=== PATIENT | female | born 1970 | race Caucasian/White ===

== ENCOUNTER 2016-05-04 15:40 | Outpatient (RCR) | payer MEDICARE, MEDICAID ==
[2016-04-22 15:20] VITALS: BP 130/83
[2016-04-22] MEDS: ACETAMINOPHEN 325 MG TABLET/CAPLET (TYLENOL) PO PRN (15:40)
[2016-04-22] MEDS: diphenhydrAMINE 50 MG/ML INJ (BENADRYL) IV PRN (15:45)
[2016-04-22 15:54] VITALS: BP 130/83
[2016-04-22 16:43] VITALS: BP 130/83
[2016-04-22 17:12] VITALS: BP 130/83
[2016-04-24] MEDS: ACETAMINOPHEN 325 MG TABLET/CAPLET (TYLENOL) PO PRN (15:55)
[2016-04-24] MEDS: diphenhydrAMINE 50 MG/ML INJ (BENADRYL) IV PRN (15:55)
[2016-04-24] MEDS: IRON SUCROSE 250 MG/NS 100 ML IVPB IV SCH ×2 (16:10)
[2016-04-24 16:45] VITALS: BP 146/92
[2016-04-27 15:10] VITALS: BP 131/79
[2016-04-27] MEDS: ACETAMINOPHEN 325 MG TABLET/CAPLET (TYLENOL) PO PRN (15:25)
[2016-04-27] MEDS: diphenhydrAMINE 50 MG/ML INJ (BENADRYL) IV PRN (15:27)
[2016-04-27] MEDS: IRON SUCROSE 250 MG/NS 100 ML IVPB IV SCH ×2 (15:42)
[2016-04-29 14:37] VITALS: BP 132/83
[2016-04-29] MEDS: diphenhydrAMINE 50 MG/ML INJ (BENADRYL) IV PRN (14:50)
[2016-04-29] MEDS: ACETAMINOPHEN 325 MG TABLET/CAPLET (TYLENOL) PO PRN (14:50)
[2016-04-29] MEDS: IRON SUCROSE 250 MG/NS 100 ML IVPB IV SCH ×2 (15:00)
[2016-05-01] MEDS: ACETAMINOPHEN 325 MG TABLET/CAPLET (TYLENOL) PO PRN (16:10)
[2016-05-01] MEDS: diphenhydrAMINE 50 MG/ML INJ (BENADRYL) IV PRN (16:10)
[2016-05-01] MEDS: IRON SUCROSE 250 MG/NS 100 ML IVPB IV SCH ×2 (16:20)
[2016-05-01 17:07] VITALS: BP 138/89
[~2016-05-04] VITALS: Ht 160 cm; Wt 113.4 kg
[~2016-05-04 15:40] MED LIST: ACETAMINOPHEN 325 MG TABLET/CAPLET (TYLENOL) ONE; ATOR40TA70 PO; IRON SUCROSE INJECTION 125 MG in NS (IVPB) 100 ML IV NR; LEVO200T6 PO; LEVO50TA6 PO; METF1000 PO; NAPR500T PO; diphenhydrAMINE 50 MG/ML INJ (BENADRYL) ONE
[2016-05-04] MEDS: ACETAMINOPHEN 325 MG TABLET/CAPLET (TYLENOL) PO PRN (15:55)
[2016-05-04] MEDS: diphenhydrAMINE 50 MG/ML INJ (BENADRYL) IV PRN (15:59)
[2016-05-04] MEDS: IRON SUCROSE 250 MG/NS 100 ML IVPB IV SCH ×2 (16:05)
[2016-05-04 16:20] VITALS: BP 135/94
[2016-05-04 16:40] VITALS: BP 135/94
== END 2016-07-21 | disposition home or self-care (01) ==
LOC: SDC 15:40
PROVIDERS: ATTEND Family Medicine
DX: D50.9 Iron deficiency anemia, unspecified (principal)
CPT/HCPCS: 96365; 96374; 96375

== ENCOUNTER 2016-10-29 14:54 | Outpatient (CLI) | payer MEDICARE, MEDICAID ==
[~2016-10-29] VITALS: Ht 160 cm; Wt 111.2 kg
[~2016-10-29 14:54] MED LIST changes: -ACETAMINOPHEN 325 MG TABLET/CAPLET (TYLENOL) ONE; -IRON SUCROSE INJECTION 125 MG in NS (IVPB) 100 ML IV NR; -diphenhydrAMINE 50 MG/ML INJ (BENADRYL) ONE
[2016-10-29] MEDS ORDERED: LORA10TA7 PO (15:04)
[2016-10-29] MEDS ORDERED: CANA100T PO (15:04)
[2016-10-29] MEDS ORDERED: ACET-2267 PO (15:04)
[2016-10-29] MEDS ORDERED: LEVO25TA5 PO (15:04)
[2016-10-29 15:07] VITALS: BP 123/82
== END 2016-10-29 15:40 | disposition home or self-care (01) ==
LOC: PREOP 14:54
PROVIDERS: ATTEND Surgery Pediatric Surgery
DX: Z01.818 Encounter for other preprocedural examination (principal); Z11.2 Encounter for screening for other bacterial diseases; K42.9 Umbilical hernia without obstruction or gangrene
CPT/HCPCS: 87081

== ENCOUNTER 2016-11-05 06:56 | Day surgery (SDC) | payer MEDICARE, MEDICAID ==
[~2016-11-05] VITALS: Ht 160 cm; Wt 111.2 kg
[~2016-11-05 06:56] MED LIST changes: +ACET-2267 PO; +CANA100T PO; +LEVO25TA5 PO; +LORA10TA7 PO
[2016-11-05] MEDS: LACTATED RINGERS 1,000 ML IV PRN ×2 (07:05→08:49)
[2016-11-05 07:10] VITALS: BP 139/91
[2016-11-05] MEDS ORDERED: ceFAZolin 1,000 MG (ANCEF) VIAL ONE (07:10)
[2016-11-05] MEDS ORDERED: NS (IVPB) 50 ML ONE (07:10)
[2016-11-05] MEDS ORDERED: CATHETER FLUSH 10 ML SYR IV PRN (07:15)
[2016-11-05] MEDS ORDERED: ceFAZolin 1 GM/NS 50 ML IVPB IV ONE ×2 (07:15)
[2016-11-05] MEDS ORDERED: fentaNYL INJECTION 100 MCG/2 ML AMP ONE (07:35)
[2016-11-05] MEDS ORDERED: SEVOFLURANE (ULTANE) 15 ML INHAL SOLN ONE (07:35)
[2016-11-05] MEDS ORDERED: proPOfol 200 MG/20 ML (DIPRIVAN) VIAL IV ONE (07:35)
[2016-11-05] MEDS ORDERED: MIDAZOLAM 2 MG/2 ML (VERSED) VIAL ONE (07:35)
[2016-11-05] MEDS ORDERED: LACTATED RINGERS 1,000 ML IV ONE ×2 (07:35→08:41)
[2016-11-05] MEDS ORDERED: ONDANSETRON 4 MG/2 ML (SDV) Z0FRAN ONE (07:35)
[2016-11-05] MEDS ORDERED: ROCURONIUM 50 MG/5 ML (ZEMURON) VIAL IV ONE (07:35)
[2016-11-05] MEDS ORDERED: LIDOCAINE PF 2% 10 ML (XYLOCAINE) AMP ONE (07:35)
[2016-11-05] MEDS ORDERED: BUP/EPI 0.5% 1:200,000 (SENSORCAINE) 30 ML VIAL ONE (07:43)
--- NOTE | 2016-11-05 08:03 | Progress Note-Pre Operative ---
Pre-Operative Progress Note H&P Reviewed The H&P was reviewed, patient examined and no changes noted. Date H&P Reviewed: November 05, 2016 Time H&P Reviewed: 07:50 Pre-Operative Diagnosis: Symptomatic Umbilical Hernia DAVID VILLA APRN November 05, 2016 8:03 am
[2016-11-05] MEDS ORDERED: HYDROcodone/APAP 5 MG/325 MG (LORTAB) TAB PO ONE (08:15)
[2016-11-05] MEDS ORDERED: morphine INJ 10 MG/ML 1ML (SYR OR VIAL) IVP PRN ×2 (08:15→09:30)
[2016-11-05] MEDS ORDERED: ACETAMINOPHEN 325 MG TABLET/CAPLET (TYLENOL) PO PRN (08:15)
[2016-11-05] MEDS ORDERED: ONDANSETRON 4 MG/2 ML (SDV) Z0FRAN IVP PRN ×2 (08:15→09:30)
--- NOTE | 2016-11-05 09:23 | Progress Note-Post Operative ---
Post-Operative Progess Note Surgeon (s)/Chemical Reclamation Equipment Operator (s) Surgeon IZABELA BENSON MD Chemical Reclamation Equipment Operator: sylvia little PATIENT TRANSITION SPECIALIST Pre-Operative Diagnosis Symptomatic Umbilical Hernia Post-Operative Diagnosis symptomatic incarcerated umbilical hernia(3cm) Procedure & Operative Findings Date of Procedure 11/05/16 Procedure Performed/Findings open incarcerated umbilical hernia repair with mesh. Anesthesia Type GET Estimated Blood Loss Estimated blood loss (mL): minimal Specimens/Packing Specimens Removed hernia sac Packing: none IZABELA BENSON MD November 05, 2016 9:23 am
[2016-11-05] MEDS ORDERED: HYDR-3730 PO (09:24)
--- NOTE | 2016-11-05 09:25 | Discharge Inst-Surgical ---
D/C Lap Instructions-KELLEY New, Converted, or Re-Newed RX: RX on Chart Follow Up Appt in 2 weeks Activity as tolerated No driving for 24 hours No driving while on pain medications Incentive Spirometry use every 2 hours while awake Regular Diet Symptoms to Report: Fever over 101 degree F, Nausea/Vomiting Infection Signs and Symptoms to report: Increased redness, Foul odor of wound, Increased drainage Bathing instructions: May shower Operative Area Clean/Dry; Keep incision clean/dry If any problems/questions: Contact your physician or go to Emergency Room IZABELA BENSON MD November 05, 2016 9:25 am
[2016-11-05] MEDS ORDERED: MEPERIDINE (DEMEROL) INJ 50 MG/ML IVP PRN (09:30)
[2016-11-05] MEDS ORDERED: HYDROmorphone (DILAUDID) 2 MG/ML VIAL IVP PRN (09:30)
[2016-11-05 10:15] VITALS: BP 121/81
[2016-11-05 10:45] VITALS: BP 130/65
--- NOTE | 2016-11-05 14:26 | OPERATIVE REPORT ---
DATE OF SERVICE: 11/05/2016 ATTENDING PHYSICIAN: Dr. Beba Cano. PREOPERATIVE DIAGNOSIS: Symptomatic incarcerated umbilical hernia. POSTOPERATIVE DIAGNOSIS: Symptomatic incarcerated umbilical hernia with defect approximately 3 x 3 cm in size. PROCEDURE PERFORMED: Open incarcerated umbilical hernia repair with mesh. INTRANET SUPPORT: Robert Cherry APRN. ANESTHESIA: General endotracheal. ESTIMATED BLOOD LOSS: Minimal. FINDINGS: There was a significant-sized hernia sac with omentum incarcerated within the hernia sac. The fascial defect was approximately 3 x 3 cm in size. DISPOSITION: The patient tolerated the procedure well. The patient is a 46-year-old female who was referred over to us for a bulge in the umbilical region. She does do no heavy lifting for her occupation and states that the lesion has been around for approximately a month or 2 and has grown larger in size. Upon examination, she was found to have an umbilical hernia, which was nonreducible and tender to palpation; however, no surrounding redness or erythema and she was tolerating a regular diet and having normal bowel movements. DESCRIPTION OF PROCEDURE: The patient was brought to the operating room, laid supine on the table. After adequate IV pain and sedating medications and general endotracheal intubation, the abdomen was prepped and draped in standard surgical fashion. A 0.5% Marcaine with epinephrine was then used to anesthetize the infraumbilical rim and a crescent-shaped skin incision made using a 15 blade. The hernia sac was identified and completely dissected out using blunt dissection as well as electrocautery until the fascia was identified. The fascial defect was approximately 3 x 3 cm in size. The area around the fascia was then cleared off using an electrocautery with visualization of good hemostasis. The hernia sac was then opened using Metzenbaum scissors. There was only omentum within the hernia sac. The hernia sac was then completely excised under direct visualization using cautery. A 6.4 coated polypropylene mesh was then placed into the defect and sutured concentrically transfascially around the mesh using 0 Prolene interrupted sutures. Good hemostasis was observed. The subcutaneous tissue was then reapproximated using 3-0 Vicryl interrupted sutures. Skin was closed using 4-0 Monocryl running subcuticular suture. The wound was then cleaned and covered with Dermabond. The umbilicus was then stuffed with tonsil sponges followed by 4 x 4 gauze followed by a large Opsite followed by a large abdominal binder. The patient tolerated the procedure well. We will start IV normal pain medications as well as a clear liquid diet. Once she is tolerating clears, has good pain control with oral pain medications and ambulating well, we will discharge her home. She will be instructed to do no heavy lifting or exertion for the next 4 to 6 weeks as well and wear her abdominal binder for the next 2 weeks. 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
== END 2016-11-05 11:12 | disposition home or self-care (01) ==
LOC: SDC 06:56
PROVIDERS: ATTEND Surgery Pediatric Surgery
DX: K42.0 Umbilical hernia with obstruction, without gangrene (principal); E11.9 Type 2 diabetes mellitus without complications; E78.5 Hyperlipidemia, unspecified; E03.9 Hypothyroidism, unspecified; G80.9 Cerebral palsy, unspecified; Z79.84 Long term (current) use of oral hypoglycemic drugs; Z79.899 Other long term (current) drug therapy
CPT/HCPCS: 82962; 84703; 94664

== ENCOUNTER → 2017-01-18 | Outpatient (CLI) | payer MEDICARE, MEDICAID ==
[~2017-01-18] MED LIST changes: +HYDR-3730 PO
--- NOTE | 2017-01-20 08:36 | Diagnostic Imaging Report ---
Bilateral screening mammogram 2D views with tomosynthesis The current study was also evaluated with a Computer Aided Detection (CAD) system. Indication: Screening. No current complaints stated on the questionnaire. COMPARISON: 01/14/16 FINDINGS: The breasts are composed of scattered fibroglandular densities. There are occasional punctate calcifications. Allowing for technique and positional differences, no suspicious change is seen. IMPRESSION: No significant change. ACR BI-RADS Category 2: Benign findings. Result letter will be mailed to the patient. Note: At least 10% of breast cancer is not imaged by mammography. Dictated by: Dictated on workstation # [id number]
== END ==
LOC: RAD 11:05
PROVIDERS: ATTEND Nurse Practitioner Family
DX: Z12.31 Encounter for screening mammogram for malignant neoplasm of breast (principal)
CPT/HCPCS: 77067

== ENCOUNTER 2017-09-29 13:09 | Outpatient (CLI) | payer MEDICARE, MEDICAID ==
[~2017-09-29] VITALS: Ht 160 cm; Wt 111.2 kg
[~2017-09-29 13:09] MED LIST changes: +NAPR-1071 PO; -NAPR500T PO
[2017-09-29 13:15] VITALS: BP 139/88
[2017-09-29] MEDS ORDERED: diphenhydrAMINE 50 MG/ML INJ (BENADRYL) IV PRN (13:30)
[2017-09-29] MEDS ORDERED: IRON DEXTRAN 25 MG/NS 6.25 ML TOTAL VOLUME IM ONE ×3 (13:30)
[2017-09-29] MEDS ORDERED: methylPREDNISolone 125 MG (Solu-MEDROL) VIAL IV PRN (13:30)
[2017-09-29] MEDS ORDERED: ACETAMINOPHEN 325 MG TABLET/CAPLET (TYLENOL) PO PRN (13:30)
[2017-09-29] MEDS ORDERED: IRON DEXTRAN 25 MG/NS 6.25 ML TOTAL VOLUME IV ONE ×3 (14:00)
[2017-09-29] MEDS ORDERED: IRON DEXTRAN 1,000 MG/NS 250 ML IVPB IV ONE ×2 (14:00)
[2017-09-29] MEDS ORDERED: IRON DEXTRAN 1,000 MG/NS 250 ML IVPB IM ONE ×2 (14:00)
[2017-09-29 16:18] VITALS: BP 139/88
== END 2017-09-29 15:45 | disposition home or self-care (01) ==
LOC: SDC 13:09
PROVIDERS: ATTEND Family Medicine
DX: D50.9 Iron deficiency anemia, unspecified (principal)
CPT/HCPCS: 96365

== ENCOUNTER → 2017-12-20 | Outpatient (CLI) | payer MEDICARE, MEDICAID ==
[~2017-12-20] MED LIST changes: +CANA300T PO; +CYAN250010 PO; +IBUP-1773 PO; -METF1000 PO; +METF10002 PO
--- NOTE | 2017-12-20 12:58 | Diagnostic Imaging Report ---
PROCEDURE: US PELVIC (NON OB) TECHNIQUE: Multiple real-time grayscale images were obtained over the pelvis in various projections transabdominally. INDICATION: Postmenopausal bleeding. FINDINGS: The uterus measures 6.7 x 3.6 x 2.4 cm. The endometrium is 5 mm in thickness. No myometrial mass is identified. The ovaries were not visualized. No adnexal mass is seen. There is a small amount of free fluid in the posterior cul-de-sac. IMPRESSION: Nonvisualized ovaries. The study is otherwise unremarkable. Dictated by: Dictated on workstation # [id number]
== END ==
LOC: RAD 12:11
PROVIDERS: ATTEND Obstetrics & Gynecology
DX: N95.0 Postmenopausal bleeding (principal)
CPT/HCPCS: 76856

== ENCOUNTER 2018-01-07 12:04 | Outpatient (CLI) | payer MEDICARE, MEDICAID ==
[~2018-01-07] VITALS: Ht 160 cm; Wt 112.7 kg
[~2018-01-07 12:04] MED LIST changes: -CANA300T PO; -CYAN250010 PO; -IBUP-1773 PO
[2018-01-07] MEDS ORDERED: CYAN250010 PO (12:13)
[2018-01-07] MEDS ORDERED: CANA300T PO (12:13)
[2018-01-07 12:15] VITALS: BP 141/90
[2018-01-07 12:46] LABS: BASOPHILS % (AUTO) 0 % (0-10); EOSINOPHILS # (AUTO) 0.3 10^3/uL (0.0-0.3); EOSINOPHILS % (AUTO) 4 % (0-10); HEMATOCRIT 40 % (35-52); HEMOGLOBIN 13.1 G/DL (11.5-16.0); LYMPHOCYTES # (AUTO) 1.4 X 10^3 (1.0-4.0); LYMPHOCYTES % (AUTO) 21 % (12-44); MEAN CORPUSCULAR HEMOGLOBIN 27 PG (25-34); MEAN CORPUSCULAR HGB CONC 33 G/DL (32-36); MEAN CORPUSCULAR VOLUME 83 FL (80-99); MEAN PLATELET VOLUME 8.7 FL (7.4-10.4); MONOCYTES # (AUTO) 0.5 X 10^3 (0.0-1.0); MONOCYTES % (AUTO) 7 % (0-12); NEUTROPHILS # (AUTO) 4.6 X 10^3 (1.8-7.8); NEUTROPHILS % (AUTO) 68 % (42-75); PLATELET COUNT 418 10^3/uL (130-400); RED BLOOD COUNT 4.87 10^6/uL (4.35-5.85); RED CELL DISTRIBUTION WIDTH 16.8 % (10.0-14.5); WHITE BLOOD COUNT 6.7 10^3/uL (4.3-11.0)
== END 2018-01-07 15:00 | disposition home or self-care (01) ==
LOC: PREOP 12:04
PROVIDERS: ATTEND Obstetrics & Gynecology
DX: Z01.812 Encounter for preprocedural laboratory examination (principal); Z11.2 Encounter for screening for other bacterial diseases; N95.0 Postmenopausal bleeding; N88.2 Stricture and stenosis of cervix uteri; D64.9 Anemia, unspecified
CPT/HCPCS: 36415; 85025; 87081

== ENCOUNTER 2018-01-11 07:54 | Day surgery (SDC) | payer MEDICARE, MEDICAID ==
[~2018-01-11] VITALS: Ht 160 cm; Wt 112.7 kg
[~2018-01-11 07:54] MED LIST changes: +CANA300T PO; +CYAN250010 PO
--- OUTSIDE RECORDS SUMMARY | 2018-01-11 08:00 | XMS REPORT | CCD ---
Author Author Beba Cano MD, [facility] Address [address] [place] [address] Phone Care Team Providers Care Crown Ironer Name Role Phone PP Unavailable CCM Unavailable Summary Purpose Interface Exchange Insurance Providers Payer name Policy type / Coverage type Covered libertarian ID Effective Begin Date Effective End Date WPS Medicare Part B Medicare Part B [id number] Unknown Unknown [employer] - Medicare Part B [id number] Unknown Unknown Family history Father Diagnosis Age At Onset Hyperlipidemia Unknown Mother Diagnosis Age At Onset Asthma Unknown Hyperlipidemia Unknown Arthritis Unknown Hypertension Unknown Brother Diagnosis Age At Onset Hyperlipidemia Unknown Hypertension Unknown Asthma Unknown Social History Social History Element Codes Description Effective Dates Marital status Unknown Single 04/04/2015 Number of children Unknown 0 04/04/2015 Living arrangements Unknown House 04/04/2015 Education level Unknown High School Graduate 04/04/2015 Employment Unknown Currently employed [email or web address] 04/04/[address]: 350528653 Never smoker 04/04/[address]: 475251257 Never drinks alcohol 04/04/2015 Has the patient ever used illegal drugs? Unknown Has never used illegal drugs 04/04/2015 On Disability Unknown Yes 04/04/2015 Allergies, Adverse Reactions, Alerts Allergies, Adverse Reactions, Alerts data not found Past Medical History Illness Codes Condition Status Onset Date Resolved Date Mixed hyperlipidemia ICD-9: 272.4 ICD-10: E78.2 Active 07/30/2015 Unknown Other care home (current) drug therapy ICD-9: V58.69 ICD-10: Z79.899 Active 07/30/2015 Unknown Other specified hypothyroidism ICD-9: 244.9 ICD-10: E03.8 Active 08/01/2015 Unknown Type 2 diabetes mellitus with hyperglycemia ICD-9: 250.00 ICD-10: E11.65 Active 07/30/2015 Unknown Umbilical hernia without obstruction or gangrene ICD-9: 553.1 ICD-10: K42.9 Active 10/13/2016 Unknown Other acute sinusitis ICD-9: 461.8 ICD-10: J01.80 Active 01/13/2016 Unknown Other allergic rhinitis ICD-9: 477.8 ICD-10: J30.89 Active 01/13/2016 Unknown Wheezing ICD-9: 786.07 ICD-10: R06.2 Active 01/13/2016 Unknown Encounter for screening mammogram for malignant neoplasm of breast ICD-9: V76.12 ICD-10: Z12.31 Active 11/03/2015 Unknown Achilles tendinitis, left leg ICD-9: 726.71 ICD-10: M76.62 Active 03/12/2015 Unknown Diabetes Unknown Active 03/13/2015 Unknown Hyperlipidemia Unknown Active 03/13/2015 Unknown Hypertension Unknown Active 03/13/2015 Unknown Hypothryroidism Unknown Active 03/13/2015 Unknown ACHILLES TENDINITIS ICD-9: 726.71 Active 03/12/2015 Unknown DIABETES TYPE II ICD-9 : 250.00 Active 03/12/2015 Unknown HYPERLIPIDEMIA ICD-9: 272.4 Active 03/12/2015 Unknown HYPOTHYROIDISM ICD-9: 244.9 Active 03/12/2015 Unknown OTH SCREENING MAMMOGRAM ICD-9: V76.12 Active 10/23/2014 Unknown Problems Condition Codes Effective Dates Condition Status Mixed hyperlipidemia ICD-9: 272.4 ICD-10: E78.2 07/30/2015 Active Other care home (current) drug therapy ICD-9: V58.69 ICD-10: Z79.899 07/30/2015 Active Other specified hypothyroidism ICD-9: 244.9 ICD-10: E03.8 08/01/2015 Active Type 2 diabetes mellitus with hyperglycemia ICD-9: 250.00 ICD-10: E11.65 07/30/2015 Active Umbilical hernia without obstruction or gangrene ICD-9: 553.1 ICD-10: K42.9 10/13/2016 Active Other acute sinusitis ICD-9: 461.8 ICD-10: J01.80 01/13/2016 Active Other allergic rhinitis ICD-9: 477.8 ICD-10: J30.89 01/13/2016 Active Wheezing ICD-9: 786.07 ICD-10: R06.2 01/13/2016 Active Encounter for screening mammogram for malignant neoplasm of breast ICD-9: V76.12 ICD-10: Z12.31 11/03/2015 Active Achilles tendinitis, left leg ICD-9: 726.71 ICD-10: M76.62 03/12/2015 Active Diabetes Unknown 03/13/2015 Active Hyperlipidemia Unknown 03/13/2015 Active Hypertension Unknown 03/13/2015 Active Hypothryroidism Unknown 03/13/2015 Active ACHILLES TENDINITIS ICD-9: 726.71 03/12/2015 Active DIABETES TYPE II ICD-9 : 250.00 03/12/2015 Active HYPERLIPIDEMIA ICD-9: 272.4 03/12/2015 Active HYPOTHYROIDISM ICD-9: 244.9 03/12/2015 Active OTH SCREENING MAMMOGRAM ICD-9: V76.12 10/23/2014 Active Medications Medication Codes Instructions Start Date Stop Date Status Fill Instructions naproxen 500 mg tablet RxNorm: 275295 TAKE 1 TABLET BY MOUTH TWICE DAILY 08/05/2017 11/02/2017 Active Generic For:NAPROSYN 500MG 08/05/2017 9:04:47 AM N O T I C E Last quantity doesn't match original quantity naproxen 500 mg tablet RxNorm: 941978 TAKE 1 TABLET BY MOUTH TWICE DAILY 04/19/2017 08/04/2017 Inactive Generic For:NAPROSYN 500MG 04/19/2017 1:49:28 PM Lipitor 40 mg tablet RxNorm: 706361 TAKE 1 TABLET BY MOUTH DAILY 03/22/2017 12/16/2017 Active Generic For:LIPITOR 40MG 03/20/2017 9:05:49 AM levothyroxine 25 mcg tablet RxNorm: 050716 1 Tablet(s) PO daily to take with her 200mcg to equal 225 mcg daily 03/22/2017 04/08/2017 Inactive Invokana 300 mg tablet RxNorm: 2614358 TAKE 1 TABLET BY MOUTH DAILY 12/21/2016 09/16/2017 Active 12/21/2016 9:03:03 AM levothyroxine 200 mcg tablet RxNorm: 060043 1 Tablet(s) PO daily 12/21/2016 09/16/2017 Active metformin 1,000 mg tablet RxNorm: 395402 TAKE 1 TABLET BY MOUTH TWICE A DAY 11/26/2016 11/20/2017 Active Generic For:*GLUCOPHAGE 1000MG 11/26/2016 1:05:15 PM naproxen 500 mg tablet RxNorm: 287779 1 Tablet(s) PO BID 201604/18/2017 Inactive levothyroxine 25 mcg tablet RxNorm: 983103 1 Tablet(s) PO daily to take with her 200mcg to equal 225 mcg daily 10/13/2016 01/10/2017 Inactive levothyroxine 50 mcg tablet RxNorm: 348799 1 Tablet(s) PO daily 09/21/2016 10/12/2016 Inactive Invokana 300 mg tablet RxNorm: 8235321 1 Tablet(s) PO daily 08/201612/19/2016 Inactive metformin 1,000 mg tablet RxNorm: 674207 TAKE 1 TABLET BY MOUTH TWICE A DAY 09/21/2016 11/25/2016 Inactive Generic For:*GLUCOPHAGE 1000MG 09/21/2016 8:53:30 AM levothyroxine 200 mcg tablet RxNorm: 272055 1 Tablet(s) PO daily 09/21/2016 12/19/2016 Inactive Lipitor 40 mg tablet RxNorm: 612412 TAKE 1 TABLET BY MOUTH DAILY 06/23/2016 03/19/2017 Inactive Generic For:LIPITOR 40MG 06/23/2016 9:12:42 AM levothyroxine 50 mcg tablet RxNorm: 148065 1 Tablet(s) PO daily TAKE 1 TABLET BY MOUTH DAILY 06/23/2016 09/20/2016 Inactive Generic For:SYNTHROID 50MCG TAB 2016 9:22:58 AM metformin 1,000 mg tablet RxNorm: 618521 TAKE 1 TABLET BY MOUTH TWICE A DAY 06/23/2016 09/20/2016 Inactive Generic For:*GLUCOPHAGE 1000MG 06/23/2016 9:12:46 AM levothyroxine 200 mcg tablet RxNorm: 147436 1 Tablet(s) PO daily 04/24/2016 08/21/2016 Inactive naproxen 500 mg tablet RxNorm: 790176 1 Tablet(s) PO BID 201510/20/2016 Inactive levothyroxine 50 mcg tablet RxNorm: 829864 1 Tablet(s) PO daily 03/25/2016 06/23/2016 Inactive Flonase Allergy Relief 50 mcg/actuation nasal spray, suspension RxNorm: 8607717 1 [place] NASAL BID 01/14/2016 No Stop Date Active prednisone 20 mg tablet RxNorm: 139152 2 Tablet(s) PO daily 01/16/2016 Inactive Zithromax Z-Michael 250 mg tablet RxNorm: 904033 Tablet(s) PO 01/1302/25/2016 Inactive levothyroxine 200 mcg tablet RxNorm: 813868 1 Tablet(s) PO daily 11/25/2015 03/23/2016 Inactive levothyroxine 50 mcg tablet RxNorm: 764738 1 Tablet(s) PO daily 11/25/2015 03/23/2016 Inactive Invokana 300 mg tablet RxNorm: 2113079 1 Tablet(s) PO daily 11/201509/20/2016 Inactive metformin 1,000 mg tablet RxNorm: 451834 TAKE 1 TABLET BY MOUTH TWICE A DAY 08/22/2015 05/17/2016 Inactive Generic For:*GLUCOPHAGE 1000MG N O T I C E PRESCRIPTION PREVIOUSLY AUTHORIZED BY DOCTOR:PEDRO SIMPSON levothyroxine 200 mcg tablet RxNorm: 887788 1 Tablet(s) PO daily 08/02/2015 11/24/2015 Inactive levothyroxine 25 mcg tablet RxNorm: 170308 1 Tablet(s) PO daily 08/02/2015 11/24/2015 Inactive levothyroxine 25 mcg tablet RxNorm: 857189 1 Tablet(s) PO daily 08/02/2015 08/01/2015 Inactive Zithromax Z-Michael 250 mg tablet RxNorm: 797385 Tablet(s) PO 07/3110/27/2015 Inactive naproxen 500 mg tablet RxNorm: 463131 1 Tablet(s) PO BID 201502/25/2016 Inactive Lipitor 40 mg tablet RxNorm: 522003 TAKE 1 TABLET BY MOUTH DAILY 05/26/2015 05/19/2016 Inactive Generic For:LIPITOR 40MG 05/25/2015 10:36:19 AM levothyroxine 200 mcg tablet RxNorm: 989431 TAKE 1 TABLET ONCE DAILY WITH 50MCG TABLET TO MAKE 250MCG. 05/26/20152015 Inactive Generic For:SYNTHROID 200MCG TAB 05/25/2015 10:36:11 AM Invokana 100 mg tablet RxNorm: 3416594 1 Tablet(s) PO daily 03/14/2015 Inactive Invokana 100 mg tablet RxNorm: 8346328 1 Tablet(s) PO daily 11/24/2015 Inactive naproxen 500 mg tablet RxNorm: 154283 1 Tablet(s) PO BID 201407/30/2015 Inactive metformin 1,000 mg tablet RxNorm: 912803 1 Tablet(s) PO BID 08/21/2015 Inactive levothyroxine 200 mcg tablet RxNorm: 103826 TAKE 1 TABLET ONCE DAILY WITH 50MCG TABLET TO MAKE 250MCG. 02/12/20152014 Inactive Generic For:SYNTHROID 200MCG TAB 02/12/2015 11:50:50 AM Lipitor 40 mg tablet RxNorm: 517181 TAKE 1 TABLET BY MOUTH DAILY 02/12/2015 05/12/2015 Inactive Generic For:LIPITOR 40MG 02/12/2015 11:50:55 AM levothyroxine 200 mcg tablet RxNorm: 761623 1 Tablet(s) PO daily 11/19/2014 02/11/2015 Inactive levothyroxine 200 mcg tablet RxNorm: 827051 1 Tablet(s) PO daily 11/19/2014 11/18/2014 Inactive Lipitor 40 mg tablet RxNorm: 631440 1 Tablet(s) PO daily call and make appt. 11/19/2014 02/11/2015 Inactive Lipitor 40 mg tablet RxNorm: 685911 1 Tablet(s) PO daily call and make appt. 11/15/2014 11/18/2014 Inactive Lipitor 40 mg tablet RxNorm: 699152 1 Tablet(s) PO daily call and make appt. 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 ICD-10: Z79.899 ICD-9: V58.69 10/13/2016 Umbilical hernia without obstruction or gangrene ICD-10: K42.9 ICD-9: 553.1 10/13/2016 Other specified hypothyroidism ICD-10: E03.8 ICD-9: 244.9 10/13/2016 Type 2 diabetes mellitus with hyperglycemia ICD-10: E11.65 ICD-9: 250.00 10/13/2016 Other acute sinusitis ICD-10: J01.80 ICD-9: 461.8 01/14/2016 Other allergic rhinitis ICD-10: J30.89 ICD-9: 477.8 01/14/2016 Wheezing ICD-10: R06.2 ICD-9: 786.07 01/14/2016 Encounter for screening mammogram for malignant neoplasm of breast ICD-10: Z12.31 ICD-9: V76.12 11/04/2015 Mixed hyperlipidemia ICD-10: E78.2 ICD-9: 272.4 07/31/2015 Achilles tendinitis, left leg ICD-10: M76.62 ICD-9: 726.71 04/04/2015 HYPERLIPIDEMIA ICD-9: 272.4 03/13/2015 ACHILLES TENDINITIS ICD-9: 726.71 2014 DIABETES TYPE II ICD-9: 250.00 2014 HYPOTHYROIDISM ICD-9: 244.9 03/13/2015 OTH SCREENING MAMMOGRAM ICD-9: V76.12 11/2014 Reason For Visit Reason For Visit Effective Dates Notes hypothyroid 10/13/2016 cough 01/14/2016 hypothyroid 07/31/2015 ankle pain 04/04/2015 hypothyroid 03/13/2015 Results Observation Observation Code Item Item Code Result Date Free T4 Oxx566 FREE T4 1.53 ng/dL 04/07/2017 Tsh Ord6 hTSH II 0.55 uIU/mL 04/07/2017 Tsh Ord6 hTSH II 0.55 uIU/mL 12/30/2016 Free T4 Wnq866 FREE T4 1.15 ng/dL 12/30/2016 %Hba1C Aax243 % HbA1c 05951-2 6.0 % 10/01/2016 %Hba1C Ljg500 Gluc Ave 126 mg/dL 10/01/2016 Tsh Ord6 hTSH II 0.19 uIU/mL 10/01/2016 Comp Metabolic Gvb978 NA 139 mEq/L 10/01/2016 Comp Metabolic Aws736 K 4.6 mEq/L 10/01/2016 Comp Metabolic Nrt802 CL 102 mEq/L 10/01/2016 Comp Metabolic Htn463 CO2 28.0 mEq/L 10/01/2016 Comp Metabolic Ztg915 ANION GAP 14 10/01/2016 Comp Metabolic Eqp891 GLUCOSE 93 mg/dL 10/01/2016 Comp Metabolic Mit302 Creat 0.6 mg/dL 10/01/2016 Comp Metabolic Pbu319 eGFR 109 ml/min/1.73m2 10/01/2016 Comp Metabolic Wyx653 BUN 20 mg/dL 10/01/2016 Comp Metabolic Pbb785 B/C Ratio 31.7 Ratio 10/01/2016 Comp Metabolic Veg221 CALCIUM 9.8 mg/dL 10/01/2016 Comp Metabolic Uwm147 ALK PHOS 114 U/L 10/01/2016 Comp Metabolic Lyo789 AST(SGOT) 11 U/L 10/01/2016 Comp Metabolic Puc805 ALT(SGPT) 12 U/L 10/01/2016 Comp Metabolic Xzp878 BILI T 0.4 mg/dL 10/01/2016 Comp Metabolic Nhk626 ALBUMIN 4.3 g/dL 10/01/2016 Comp Metabolic Olx122 TPRO 7.2 g/dL 10/01/2016 Comp Metabolic Jvt950 GLOB 2.9 g/dL 10/01/2016 Comp Metabolic Tie233 A/G Ratio 1.5 Ratio 10/01/2016 Comp Metabolic Dgy545 Osmo 280 mOsmo 10/01/2016 Free T4 Add213 FREE T4 1.37 ng/dL 10/01/2016 Lipid Ord30 CHOL 161 mg/dL 10/01/2016 Lipid Ord30 HDL 43.0 mg/dl 10/01/2016 Lipid Ord30 TRIG 150 mg/dL 10/01/2016 Lipid Ord30 LDL 88 mg/dL 10/01/2016 Lipid Ord30 C/HDL 3.7 Ratio 10/01/2016 Cbc With Differential Ord2 WBC 7.72 K/ul 10/01/2016 Cbc With Differential Ord2 RBC 4.73 M/ul 10/01/2016 Cbc With Differential Ord2 HGB 13.2 g/dl 10/01/2016 Cbc With Differential Ord2 HCT 41.8 % 10/01/2016 Cbc With Differential Ord2 Neut% 64.5 % 10/01/2016 Cbc With Differential Ord2 Lymph% 21.9 % 10/01/2016 Cbc With Differential Ord2 MCV 88.4 fl 10/01/2016 Cbc With Differential Ord2 MCH 27.9 pg 10/01/2016 Cbc With Differential Ord2 Mck[place]ley% 8.5 % 10/01/2016 Cbc With Differential Ord2 Eos% 4.5 % 10/01/2016 Cbc With Differential Ord2 MCHC 31.6 pg 10/01/2016 Cbc With Differential Ord2 Baso% 0.6 % 10/01/2016 Cbc With Differential Ord2 PLT 405 K/ul 10/01/2016 Cbc With Differential Ord2 Neut ABS# 4.97 K/ul 10/01/2016 Cbc With Differential Ord2 RDW 14.9 % 10/01/2016 Cbc With Differential Ord2 Lymph ABS# 1.69 K/ul 10/01/2016 Cbc With Differential Ord2 [place] ABS# 0.7 K/ul 10/01/2016 Cbc With Differential Ord2 Eos ABS# 0.4 K/ul 10/01/2016 Cbc With Differential Ord2 Baso ABS# 0.1 K/ul 10/01/2016 Tibc Ord40 Iron 36 ug/dl 04/06/2016 Tibc Ord40 UIBC 373 ug/dL 04/06/2016 Tibc Ord40 TIBC 409 ug/dL 04/06/2016 Tibc Ord40 Fe-%Sat 8.8 % 04/06/2016 Cbc With Differential Ord2 WBC 6.07 K/ul 04/06/2016 Cbc With Differential Ord2 RBC 4.45 M/ul 04/06/2016 Cbc With Differential Ord2 HGB 10.1 g/dl 04/06/2016 Cbc With Differential Ord2 Neut% 60.6 % 04/06/2016 Cbc With Differential Ord2 HCT 33.5 % 04/06/2016 Cbc With Differential Ord2 MCV 75.3 fl 04/06/2016 Cbc With Differential Ord2 Lymph% 24.4 % 04/06/2016 Cbc With Differential Ord2 MCH 22.7 pg 04/06/2016 Cbc With Differential Ord2 [place]% 8.2 % 04/06/2016 Cbc With Differential Ord2 MCHC 30.1 pg 04/06/2016 Cbc With Differential Ord2 Eos% 6.3 % 04/06/2016 Cbc With Differential Ord2 Baso% 0.5 % 04/06/2016 Cbc With Differential Ord2 PLT 482 K/ul 04/06/2016 Cbc With Differential Ord2 RDW 17.0 % 04/06/2016 Cbc With Differential Ord2 Neut ABS# 3.68 K/ul 04/06/2016 Cbc With Differential Ord2 Lymph ABS# 1.48 K/ul 04/06/2016 Cbc With Differential Ord2 [place] ABS# 0.5 K/ul 04/06/2016 Cbc With Differential Ord2 Eos ABS# 0.4 K/ul 04/06/2016 Cbc With Differential Ord2 Baso ABS# 0.0 K/ul 04/06/2016 Ferritin Ord22 FERRITIN 5.8 ng/mL 04/06/2016 Free T4 Miw740 FREE T4 1.16 ng/dL 03/16/2016 %Hba1C Gkt815 % HbA1c 25473-9 7.0 % 03/16/2016 %Hba1C Pjz250 Gluc Ave 154 mg/dL 03/16/2016 Cbc With Differential Ord2 WBC 13.14 K/ul 03/16/2016 Cbc With Differential Ord2 RBC 4.61 M/ul 03/16/2016 Cbc With Differential Ord2 HGB 10.7 g/dl 03/16/2016 Cbc With Differential Ord2 HCT 35.4 % 03/16/2016 Cbc With Differential Ord2 Neut% 78.5 % 03/16/2016 Cbc With Differential Ord2 Lymph% 13.3 % 03/16/2016 Cbc With Differential Ord2 MCV 76.8 fl 03/16/2016 Cbc With Differential Ord2 MCH 23.2 pg 03/16/2016 Cbc With Differential Ord2 [place]% 4.8 % 03/16/2016 Cbc With Differential Ord2 Eos% 3.1 % 03/16/2016 Cbc With Differential Ord2 MCHC 30.2 pg 03/16/2016 Cbc With Differential Ord2 PLT 463 K/ul 03/16/2016 Cbc With Differential Ord2 Baso% 0.3 % 03/16/2016 Cbc With Differential Ord2 Neut ABS# 10.31 K/ul 03/16/2016 Cbc With Differential Ord2 RDW 16.8 % 03/16/2016 Cbc With Differential Ord2 Lymph ABS# 1.75 K/ul 03/16/2016 Cbc With Differential Ord2 [place] ABS# 0.6 K/ul 03/16/2016 Cbc With Differential Ord2 Eos ABS# 0.4 K/ul 03/16/2016 Cbc With Differential Ord2 Baso ABS# 0.0 K/ul 03/16/2016 Tsh Ord6 hTSH II 1.39 uIU/mL 03/16/2016 Tsh Ord6 hTSH II 10.28 uIU/mL 11/14/2015 Free T4 Yzw905 FREE T4 0.79 ng/dL 11/14/2015 Lipid Ord30 CHOL 153 mg/dL 11/14/2015 Lipid Ord30 HDL 44.0 mg/dl 11/14/2015 Lipid Ord30 TRIG 120 mg/dL 11/14/2015 Lipid Ord30 LDL 85 mg/dL 11/14/2015 Lipid Ord30 C/HDL 3.5 Ratio 11/14/2015 Cbc With Differential Ord2 WBC 11.83 K/ul 11/14/2015 Cbc With Differential Ord2 RBC 4.76 M/ul 11/14/2015 Cbc With Differential Ord2 HGB 11.6 g/dl 11/14/2015 Cbc With Differential Ord2 HCT 37.7 % 11/14/2015 Cbc With Differential Ord2 Neut% 75.3 % 11/14/2015 Cbc With Differential Ord2 Lymph% 14.5 % 11/14/2015 Cbc With Differential Ord2 MCV 79.2 fl 11/14/2015 Cbc With Differential Ord2 [place]% 6.6 % 11/14/2015 Cbc With Differential Ord2 MCH 24.4 pg 11/14/2015 Cbc With Differential Ord2 MCHC 30.8 pg 11/14/2015 Cbc With Differential Ord2 Eos% 3.3 % 11/14/2015 Cbc With Differential Ord2 Baso% 0.3 % 11/14/2015 Cbc With Differential Ord2 PLT 477 K/ul 11/14/2015 Cbc With Differential Ord2 Neut ABS# 8.90 K/ul 11/14/2015 Cbc With Differential Ord2 RDW 15.9 % 11/14/2015 Cbc With Differential Ord2 Lymph ABS# 1.72 K/ul 11/14/2015 Cbc With Differential Ord2 [place] ABS# 0.8 K/ul 11/14/2015 Cbc With Differential Ord2 Eos ABS# 0.4 K/ul 11/14/2015 Cbc With Differential Ord2 Baso ABS# 0.0 K/ul 11/14/2015 Comp Metabolic Hbz436 NA 136 mEq/L 11/14/2015 Comp Metabolic Bna120 K 4.4 mEq/L 11/14/2015 Comp Metabolic Dao347 CL 101 mEq/L 11/14/2015 Comp Metabolic Jza745 CO2 27.0 mEq/L 11/14/2015 Comp Metabolic Srp072 ANION GAP 12 11/14/2015 Comp Metabolic Vbc717 GLUCOSE 107 mg/dL 11/14/2015 Comp Metabolic Spo297 Creat 0.6 mg/dL 11/14/2015 Comp Metabolic Djq942 eGFR 125 ml/min/1.73m2 11/14/2015 Comp Metabolic Kgo242 BUN 14 mg/dL 11/14/2015 Comp Metabolic Rqy414 B/C Ratio 25.0 Ratio 11/14/2015 Comp Metabolic Xsf581 CALCIUM 9.6 mg/dL 11/14/2015 Comp Metabolic Mex982 ALK PHOS 104 U/L 11/14/2015 Comp Metabolic Lfu217 AST(SGOT) 16 U/L 11/14/2015 Comp Metabolic Kft736 ALT(SGPT) 14 U/L 11/14/2015 Comp Metabolic Oqr059 BILI T 0.3 mg/dL 11/14/2015 Comp Metabolic Scj371 ALBUMIN 4.0 g/dL 11/14/2015 Comp Metabolic Tlm712 TPRO 7.2 g/dL 11/14/2015 Comp Metabolic Bhl564 GLOB 3.2 g/dL 11/14/2015 Comp Metabolic Cgq369 A/G Ratio 1.3 Ratio 11/14/2015 Comp Metabolic Mht843 Osmo 273 mOsmo 11/14/2015 %Hba1C Fnb236 % HbA1c 23550-1 7.0 % 11/14/2015 %Hba1C Ucb985 Gluc Ave 154 mg/dL 11/14/2015 Free T4 Ehd758 FREE T4 0.49 ng/dL 08/02/2015 Tsh Ord6 hTSH II 44.41 uIU/mL 07/31/2015 %Hba1C Fmv510 % HbA1c 51916-8 6.7 % 07/31/2015 %Hba1C Fdf097 Gluc Ave 146 mg/dL 07/31/2015 Cbc With Differential Ord2 WBC 8.1 K/uL 03/13/2015 Cbc With Differential Ord2 LYM 1.8 K/uL 03/13/2015 Cbc With Differential Ord2 LYM% 22.2 % 03/13/2015 Cbc With Differential Ord2 NEUT/GRAN 5.7 K/uL 03/13/2015 Cbc With Differential Ord2 NEUT/GRAN % 70.7 % 03/13/2015 Cbc With Differential Ord2 MID 0.6 K/uL 03/13/2015 Cbc With Differential Ord2 MID% 7.1 % 03/13/2015 Cbc With Differential Ord2 RBC 4.72 M/uL 03/13/2015 Cbc With Differential Ord2 HGB 12.7 g/dL 03/13/2015 Cbc With Differential Ord2 HCT 40.1 % 03/13/2015 Cbc With Differential Ord2 MCV 85 fL 03/13/2015 Cbc With Differential Ord2 MCH 27 pg 03/13/2015 Cbc With Differential Ord2 MCHC 32 g/dL 03/13/2015 Cbc With Differential Ord2 PLT 428 K/uL 03/13/2015 Cbc With Differential Ord2 RDW 14.9 % 03/13/2015 %Hba1C Oiw232 % HbA1c 94817-8 6.8 % 03/13/2015 %Hba1C Ytf942 Gluc Ave 148 mg/dL 03/13/2015 Tsh Ord6 hTSH II 0.95 uIU/mL 03/13/2015 Lipid Ord30 CHOL 146 mg/dL 03/13/2015 Lipid Ord30 HDL 40.0 mg/dl 03/13/2015 Lipid Ord30 TRIG 137 mg/dL 03/13/2015 Lipid Ord30 LDL 79 mg/dL 03/13/2015 Lipid Ord30 C/HDL 3.7 Ratio 03/13/2015 Comp Metabolic Hbb024 NA 135 mEq/L 03/13/2015 Comp Metabolic Fhf458 K 4.5 mEq/L 03/13/2015 Comp Metabolic Xye834 CL 99 mEq/L 03/13/2015 Comp Metabolic Wkb069 CO2 29.0 mEq/L 03/13/2015 Comp Metabolic Uxu314 ANION GAP 12 03/13/2015 Comp Metabolic Afy051 GLUCOSE 98 mg/dL 03/13/2015 Comp Metabolic Chf364 Creat 0.7 mg/dL 03/13/2015 Comp Metabolic Hly459 eGFR 100 ml/min/1.73m2 03/13/2015 Comp Metabolic Nci185 BUN 13 mg/dL 03/13/2015 Comp Metabolic Rtb779 B/C Ratio 19.1 Ratio 03/13/2015 Comp Metabolic Occ782 CALCIUM 9.8 mg/dL 03/13/2015 Comp Metabolic Eso392 ALK PHOS 91 U/L 03/13/2015 Comp Metabolic Rdr051 AST(SGOT) 10 U/L 03/13/2015 Comp Metabolic Dst478 ALT(SGPT) 10 U/L 03/13/2015 Comp Metabolic Waq810 BILI T 0.4 mg/dL 03/13/2015 Comp Metabolic Ytx692 ALBUMIN 4.1 g/dL 03/13/2015 Comp Metabolic Hri314 TPRO 6.9 g/dL 03/13/2015 Comp Metabolic Lhy315 GLOB 2.8 g/dL 03/13/2015 Comp Metabolic Hey439 A/G Ratio 1.5 Ratio 03/13/2015 Comp Metabolic Ows376 Osmo 270 mOsmo 03/13/2015 Free T4 Kub281 FREE T4 1.25 ng/dL 03/13/2015 Review of Systems System Result Effective Dates Constitutional No recent illness 2016 Constitutional No chills 10/13/2016 Constitutional No fever 10/13/2016 Eyes No eye discharge 10/13/2016 Eyes No eye erythema 10/13/2016 Eyes No vision change 10/13/2016 Cardiovascular No chest pain/pressure Cardiovascular No dyspnea 10/13/2016 Respiratory No dyspnea 10/13/2016 Gastrointestinal No abdominal pain 2016 Gastrointestinal No constipation 2016 Gastrointestinal No diarrhea 10/13/2016 Gastrointestinal No gastroesophageal reflux 10/13/2016 Gastrointestinal No nausea 10/13/2016 Gastrointestinal No vomiting 10/13/2016 Neurologic No alteration of consciousness 10/13/2016 Constitutional No diaphoresis 10/13/2016 Ears/Nose/Throat/Neck nasal allergies Ears/Nose/Throat/Neck No nasal discharge 10/13/2016 Respiratory No cough 10/13/2016 Neurologic No mental status change 2016 Constitutional recent illness 01/14/2016 Constitutional No chills 01/14/2016 Constitutional No fever 01/14/2016 Constitutional No malaise 01/14/2016 Eyes No eye discharge 01/14/2016 Eyes No eye erythema 01/14/2016 Eyes No vision change 01/14/2016 Ears/Nose/Throat/Neck nasal allergies Ears/Nose/Throat/Neck nasal discharge Ears/Nose/Throat/Neck postnasal drip Ears/Nose/Throat/Neck sinus congestion Ears/Nose/Throat/Neck No sore throat Cardiovascular No chest pain/pressure Cardiovascular No dyspnea 01/14/2016 Respiratory productive sputum 01/14/2016 Respiratory cough 01/14/2016 Respiratory No dyspnea 01/14/2016 Gastrointestinal No nausea 01/14/2016 Gastrointestinal No vomiting 01/14/2016 Dermatologic No rash 01/14/2016 Dermatologic No sores 01/14/2016 Dermatologic No scar 01/14/2016 Neurologic No alteration of consciousness 01/14/2016 Ears/Nose/Throat/Neck No otalgia 2015 Respiratory chest congestion 01/14/2016 Gastrointestinal No abdominal pain 2015 Constitutional recent illness 07/31/2015 Constitutional No chills 07/31/2015 Constitutional No fatigue 07/31/2015 Constitutional No fever 07/31/2015 Constitutional No insomnia 07/31/2015 Constitutional No malaise 07/31/2015 Ears/Nose/Throat/Neck No dizziness 2015 Ears/Nose/Throat/Neck No headache 2015 Ears/Nose/Throat/Neck No hearing loss 03/2016 Ears/Nose/Throat/Neck nasal allergies 03/2016 Ears/Nose/Throat/Neck No sore throat 03/2016 Ears/Nose/Throat/Neck postnasal drip 03/2016 Ears/Nose/Throat/Neck sinus congestion Cardiovascular No chest pain/pressure 03/2016 Cardiovascular No dyspnea 07/31/2015 Cardiovascular No edema 07/31/2015 Cardiovascular No fatigue 07/31/2015 Cardiovascular No near-syncope/dizziness 07/31/2015 Respiratory No chest tightness 2015 Respiratory cough 07/31/2015 Respiratory No dyspnea 07/31/2015 Respiratory No pedal edema 07/31/2015 Gastrointestinal No abdominal pain 2015 Gastrointestinal No constipation 2015 Gastrointestinal No diarrhea 07/31/2015 Gastrointestinal No gastroesophageal reflux 07/31/2015 Gastrointestinal No nausea 07/31/2015 Gastrointestinal No vomiting 07/31/2015 Genitourinary/Nephrology No dysuria 07/31 Genitourinary/Nephrology No nocturia 03/2016 Genitourinary/Nephrology No urinary incontinence 07/31/2015 Dermatologic No rash 07/31/2015 Dermatologic No sores 07/31/2015 Dermatologic No scar 07/31/2015 Psychiatric No anxiety 07/31/2015 Psychiatric No depression 07/31/2015 Eyes No eye discharge 07/31/2015 Eyes No eye erythema 07/31/2015 Eyes No vision change 07/31/2015 Ears/Nose/Throat/Neck nasal discharge 03/2016 Respiratory productive sputum 07/31/2015 Neurologic No alteration of consciousness 07/31/2015 Constitutional No recent illness 2014 Constitutional No chills 04/04/2015 Constitutional No fatigue 04/04/2015 Constitutional No fever 04/04/2015 Constitutional No insomnia 04/04/2015 Constitutional No malaise 04/04/2015 Eyes No blindness 04/04/2015 Eyes No vision change 04/04/2015 Ears/Nose/Throat/Neck No dental pain Ears/Nose/Throat/Neck No dizziness 2014 Ears/Nose/Throat/Neck No dysphagia 2014 Ears/Nose/Throat/Neck No headache 2014 Ears/Nose/Throat/Neck No hearing loss Ears/Nose/Throat/Neck No nasal allergies 04/04/2015 Ears/Nose/Throat/Neck No sore throat Ears/Nose/Throat/Neck No postnasal drip 04/04/2015 Ears/Nose/Throat/Neck No sinus congestion 04/04/2015 Cardiovascular No chest pain/pressure Cardiovascular No dyspnea 04/04/2015 Cardiovascular No edema 04/04/2015 Cardiovascular No exercise intolerance Cardiovascular No fatigue 04/04/2015 Cardiovascular No near-syncope/dizziness 04/04/2015 Respiratory No chest tightness 2014 Respiratory No cough 04/04/2015 Respiratory No dyspnea 04/04/2015 Respiratory No pedal edema 04/04/2015 Gastrointestinal No abdominal pain 2014 Gastrointestinal No constipation 2014 Gastrointestinal No diarrhea 04/04/2015 Gastrointestinal No gastroesophageal reflux 04/04/2015 Gastrointestinal No nausea 04/04/2015 Gastrointestinal No vomiting 04/04/2015 Genitourinary/Nephrology No dysuria 04/04 Genitourinary/Nephrology No nocturia Genitourinary/Nephrology No urinary incontinence 04/04/2015 Musculoskeletal stiffness 04/04/2015 Musculoskeletal No swelling 04/04/2015 Musculoskeletal arthralgia(s) 04/04/2015 Musculoskeletal joint complaint 2014 Musculoskeletal No muscle weakness 2014 Musculoskeletal No myalgias 04/04/2015 Dermatologic No rash 04/04/2015 Dermatologic No sores 04/04/2015 Dermatologic No scar 04/04/2015 Neurologic No dizziness 04/04/2015 Neurologic No headache 04/04/2015 Neurologic No neck pain 04/04/2015 Neurologic No syncope 04/04/2015 Psychiatric No anxiety 04/04/2015 Psychiatric No depression 04/04/2015 Constitutional No recent illness 2014 Constitutional No chills 03/13/2015 Constitutional No fatigue 03/13/2015 Constitutional No fever 03/13/2015 Constitutional No insomnia 03/13/2015 Constitutional No malaise 03/13/2015 Eyes No blindness 03/13/2015 Eyes No vision change 03/13/2015 Ears/Nose/Throat/Neck No dental pain Ears/Nose/Throat/Neck No dizziness 2014 Ears/Nose/Throat/Neck No dysphagia 2014 Ears/Nose/Throat/Neck No headache 2014 Ears/Nose/Throat/Neck No hearing loss Ears/Nose/Throat/Neck No nasal allergies 03/13/2015 Ears/Nose/Throat/Neck No sore throat Ears/Nose/Throat/Neck No postnasal drip 03/13/2015 Ears/Nose/Throat/Neck No sinus congestion 03/13/2015 Cardiovascular No chest pain/pressure Cardiovascular No dyspnea 03/13/2015 Cardiovascular No edema 03/13/2015 Cardiovascular No exercise intolerance Cardiovascular No fatigue 03/13/2015 Cardiovascular No near-syncope/dizziness 03/13/2015 Respiratory No chest tightness 2014 Respiratory No cough 03/13/2015 Respiratory No dyspnea 03/13/2015 Respiratory No pedal edema 03/13/2015 Gastrointestinal No abdominal pain 2014 Gastrointestinal No constipation 2014 Gastrointestinal No diarrhea 03/13/2015 Gastrointestinal No gastroesophageal reflux 03/13/2015 Gastrointestinal No nausea 03/13/2015 Gastrointestinal No vomiting 03/13/2015 Genitourinary/Nephrology No dysuria 03/13 Genitourinary/Nephrology No nocturia Genitourinary/Nephrology No urinary incontinence 03/13/2015 Musculoskeletal stiffness 03/13/2015 Musculoskeletal No swelling 03/13/2015 Musculoskeletal No muscle weakness 2014 Musculoskeletal No myalgias 03/13/2015 Dermatologic No rash 03/13/2015 Dermatologic No sores 03/13/2015 Dermatologic No scar 03/13/2015 Neurologic No dizziness 03/13/2015 Neurologic No headache 03/13/2015 Neurologic No neck pain 03/13/2015 Neurologic No syncope 03/13/2015 Psychiatric No anxiety 03/13/2015 Psychiatric No depression 03/13/2015 Musculoskeletal arthralgia(s) 03/13/2015 Musculoskeletal joint complaint 2014 Physical Exam Exam Name System Name Item Name Status Result Effective Dates Notes Full Exam - General 1994 Constitutional general appearance Hygiene/Attention to Grooming: good hygiene 10/13/2016 None Full Exam - General 1994 Eyes conjunctiva /eyelids Overall: conjunctiva clear 10/13/2016 None Full Exam - General 1994 Eyes conjunctiva /eyelids Overall: eyelids normal 10/13/2016 None Full Exam - General 1994 Ears/Nose/Throat otoscopic exam Overall: external auditory canals clear 10/13/2016 None Full Exam - General 1994 Ears/Nose/Throat lips/teeth/gingiva Overall: benign lips 10/13/2016 None Full Exam - General 1994 Ears/Nose/Throat oral cavity/pharynx/larynx Overall: oral mucosa clear 10/13/2016 None Full Exam - General 1994 Respiratory auscultation Overall: breath sounds clear bilaterally 10/13/2016 None Full Exam - General 1994 Respiratory respiratory effort/rhythm Overall: no retractions 10/13/2016 None Full Exam - General 1994 Respiratory respiratory effort/rhythm Overall: normal rate 10/13/2016 None Full Exam - General 1994 Cardiovascular extremities Overall: no clubbing 10/13/2016 None Full Exam - General 1994 Cardiovascular auscultation of heart Overall: regular rate 10/13/2016 None Full Exam - General 1994 Cardiovascular auscultation of heart Overall: normal heart sounds 10/13/2016 None Full Exam - General 1994 Lymphatic neck nodes Overall: anterior cervical chain benign 10/13/2016 None Full Exam - General 1994 Lymphatic neck nodes Overall: posterior cervical chain benign 10/13/2016 None Full Exam - General 1994 Musculoskeletal spine, ribs and pelvis Overall: good posture 10/13/2016 None Full Exam - General 1994 Musculoskeletal head and neck Overall: head atraumatic 10/13/2016 None Full Exam - General 1994 Neurologic cranial nerves Overall: crainial nerves 2 - 12 grossly intact 10/13/2016 None Full Exam - General 1994 Psychiatric orientation/consciousness Overall: oriented to person, place and time 10/13/2016 None Full Exam - General 1994 Psychiatric mood and affect Overall: normal mood and affect 10/13/2016 None Full Exam - General 1994 Constitutional general appearance Overall: well developed 10/13/2016 None Full Exam - General 1994 Constitutional general appearance Overall: in no acute distress 10/13/2016 None Full Exam - General 1994 Constitutional general appearance Overall: well nourished 10/13/2016 None Full Exam - General 1994 Ears/Nose/Throat otoscopic exam Overall: tympanic membranes clear 10/13/2016 None Full Exam - General 1994 Ears/Nose/Throat oral cavity/pharynx/larynx Posterior Pharynx: clear post nasal drainage 10/13/2016 None Full Exam - General 1994 Abdomen abdominal exam Overall: normal bowel sounds 10/13/2016 None Full Exam - General 1994 Abdomen abdominal exam Overall: no tenderness 10/13/2016 None Full Exam - General 1994 Abdomen hernia exam Abdominal hernia present: non-tender 10/13/2016 None Full Exam - General 1994 Abdomen hernia exam Abdominal hernia present: reducible 10/13/2016 None Full Exam - General 1994 Constitutional general appearance Development: well developed 01/14/2016 None Full Exam - General 1994 Constitutional general appearance Development: appears stated age 0701/14/2016 None Full Exam - General 1994 Constitutional general appearance Hygiene/Attention to Grooming: good hygiene 01/14/2016 None Full Exam - General 1994 Eyes conjunctiva /eyelids Overall: conjunctiva clear 01/14/2016 None Full Exam - General 1994 Eyes conjunctiva /eyelids Overall: cornea clear 01/14/2016 None Full Exam - General 1994 Eyes conjunctiva /eyelids Overall: eyelids normal 01/14/2016 None Full Exam - General 1994 Eyes pupils and irises Overall: pupils equal, round, reactive to light and accomodation 01/14/2016 None Full Exam - General 1994 Ears/Nose/Throat otoscopic exam Overall: external auditory canals clear 01/14/2016 None Full Exam - General 1994 Ears/Nose/Throat otoscopic exam Tympanic membrane: air- fluid level 01/14/2016 None Full Exam - General 1994 Ears/Nose/Throat internal nose Drainage: purulent 01/14/2016 None Full Exam - General 1994 Ears/Nose/Throat lips/teeth/gingiva Overall: benign lips 01/14/2016 None Full Exam - General 1994 Ears/Nose/Throat lips/teeth/gingiva Overall: normal dentition 01/14/2016 None Full Exam - General 1994 Ears/Nose/Throat oral cavity/pharynx/larynx Overall: oral mucosa clear 01/14/2016 None Full Exam - General 1994 Ears/Nose/Throat oral cavity/pharynx/larynx Overall: no masses 01/14/2016 None Full Exam - General 1994 Respiratory auscultation Overall: breath sounds clear bilaterally 01/14/2016 None Full Exam - General 1994 Respiratory respiratory effort/rhythm Overall: no retractions 01/14/2016 None Full Exam - General 1994 Respiratory respiratory effort/rhythm Overall: normal rate 01/14/2016 None Full Exam - General 1994 Cardiovascular extremities Overall: no clubbing 01/14/2016 None Full Exam - General 1994 Cardiovascular auscultation of heart Overall: regular rate 01/14/2016 None Full Exam - General 1994 Cardiovascular auscultation of heart Overall: normal heart sounds 01/14/2016 None Full Exam - General 1994 Musculoskeletal spine, ribs and pelvis Overall: good posture 01/14/2016 None Full Exam - General 1994 Musculoskeletal head and neck Overall: head atraumatic 01/14/2016 None Full Exam - General 1994 Neurologic cranial nerves Overall: crainial nerves 2 - 12 grossly intact 01/14/2016 None Full Exam - General 1994 Psychiatric orientation/consciousness Overall: oriented to person, place and time 01/14/2016 None Full Exam - General 1994 Psychiatric mood and affect Overall: normal mood and affect 01/14/2016 None Full Exam - General 1994 Ears/Nose/Throat internal nose Sinus tenderness: left maxillary 01/14/2016 None Full Exam - General 1994 Ears/Nose/Throat internal nose Sinus tenderness: right maxillary 01/14/2016 None Full Exam - General 1994 Ears/Nose/Throat oral cavity/pharynx/larynx Posterior Pharynx: clear post nasal drainage 01/14/2016 None Full Exam - General 1994 Respiratory auscultation Lower lung field: expiratory wheezes 01/14/2016 None Full Exam - General 1994 Integument inspection of skin Overall: no rash, lesions 01/14/2016 None Full Exam - General 1994 Constitutional general appearance Development: well developed 07/31/2015 None Full Exam - General 1994 Constitutional general appearance Development: appears stated age 0207/31/2015 None Full Exam - General 1994 Constitutional general appearance Hygiene/Attention to Grooming: good hygiene 07/31/2015 None Full Exam - General 1994 Eyes conjunctiva /eyelids Overall: conjunctiva clear 07/31/2015 None Full Exam - General 1994 Eyes conjunctiva /eyelids Overall: cornea clear 07/31/2015 None Full Exam - General 1994 Eyes conjunctiva /eyelids Overall: eyelids normal 07/31/2015 None Full Exam - General 1994 Eyes pupils and irises Overall: pupils equal, round, reactive to light and accomodation 07/31/2015 None Full Exam - General 1994 Ears/Nose/Throat otoscopic exam Overall: external auditory canals clear 07/31/2015 None Full Exam - General 1994 Ears/Nose/Throat lips/teeth/gingiva Overall: benign lips 07/31/2015 None Full Exam - General 1994 Ears/Nose/Throat lips/teeth/gingiva Overall: normal dentition 07/31/2015 None Full Exam - General 1994 Ears/Nose/Throat oral cavity/pharynx/larynx Overall: oral mucosa clear 07/31/2015 None Full Exam - General 1994 Ears/Nose/Throat oral cavity/pharynx/larynx Overall: no masses 07/31/2015 None Full Exam - General 1994 Respiratory auscultation Overall: breath sounds clear bilaterally 07/31/2015 None Full Exam - General 1994 Respiratory respiratory effort/rhythm Overall: no retractions 07/31/2015 None Full Exam - General 1994 Respiratory respiratory effort/rhythm Overall: normal rate 07/31/2015 None Full Exam - General 1994 Cardiovascular extremities Overall: no clubbing 07/31/2015 None Full Exam - General 1994 Cardiovascular auscultation of heart Overall: regular rate 07/31/2015 None Full Exam - General 1994 Cardiovascular auscultation of heart Overall: normal heart sounds 07/31/2015 None Full Exam - General 1994 Abdomen abdominal exam Overall: no tenderness 07/31/2015 None Full Exam - General 1994 Abdomen abdominal exam Overall: normal bowel sounds 07/31/2015 None Full Exam - General 1994 Lymphatic neck nodes Overall: anterior cervical chain benign 07/31/2015 None Full Exam - General 1994 Lymphatic neck nodes Overall: posterior cervical chain benign 07/31/2015 None Full Exam - General 1994 Musculoskeletal spine, ribs and pelvis Overall: spine benign 07/31/2015 None Full Exam - General 1994 Musculoskeletal spine, ribs and pelvis Overall: sacroiliac joint benign 07/31/2015 None Full Exam - General 1994 Musculoskeletal spine, ribs and pelvis Overall: good posture 07/31/2015 None Full Exam - General 1994 Musculoskeletal head and neck Overall: head atraumatic 07/31/2015 None Full Exam - General 1994 Musculoskeletal head and neck Overall: cervical spine benign 07/31/2015 None Full Exam - General 1994 Integument inspection of skin Overall: few scattered moles, no gross abnormalities 07/31/2015 None Full Exam - General 1994 Neurologic cranial nerves Overall: crainial nerves 2 - 12 grossly intact 07/31/2015 None Full Exam - General 1994 Psychiatric orientation/consciousness Overall: oriented to person, place and time 07/31/2015 None Full Exam - General 1994 Psychiatric mood and affect Overall: normal mood and affect 07/31/2015 None Full Exam - General 1994 Ears/Nose/Throat otoscopic exam Tympanic membrane: air- fluid level 07/31/2015 None Full Exam - General 1994 Ears/Nose/Throat internal nose Drainage: purulent 07/31/2015 None Full Exam - General 1994 Ears/Nose/Throat oral cavity/pharynx/larynx Posterior Pharynx: purulent post nasal drainage 07/31/2015 None Full Exam - General 1994 Ears/Nose/Throat oral cavity/pharynx/larynx Oropharynx: erythema 07/31/2015 None Full Exam - General 1994 Constitutional general appearance Development: well developed 04/04/2015 None Full Exam - General 1994 Constitutional general appearance Development: appears stated age 1004/04/2015 None Full Exam - General 1994 Constitutional general appearance Hygiene/Attention to Grooming: good hygiene 04/04/2015 None Full Exam - General 1994 Ears/Nose/Throat lips/teeth/gingiva Overall: benign lips 04/04/2015 None Full Exam - General 1994 Ears/Nose/Throat lips/teeth/gingiva Overall: normal dentition 04/04/2015 None Full Exam - General 1994 Ears/Nose/Throat oral cavity/pharynx/larynx Overall: oral mucosa clear 04/04/2015 None Full Exam - General 1994 Ears/Nose/Throat oral cavity/pharynx/larynx Overall: oropharyngeal mucosa clear 04/04/2015 None Full Exam - General 1994 Ears/Nose/Throat oral cavity/pharynx/larynx Overall: hypopharynx benign 04/04/2015 None Full Exam - General 1994 Ears/Nose/Throat oral cavity/pharynx/larynx Overall: no masses 04/04/2015 None Full Exam - General 1994 Respiratory auscultation Overall: breath sounds clear bilaterally 04/04/2015 None Full Exam - General 1994 Respiratory respiratory effort/rhythm Overall: no retractions 04/04/2015 None Full Exam - General 1994 Respiratory respiratory effort/rhythm Overall: normal rate 04/04/2015 None Full Exam - General 1994 Cardiovascular extremities Overall: no clubbing 04/04/2015 None Full Exam - General 1994 Cardiovascular auscultation of heart Overall: regular rate 04/04/2015 None Full Exam - General 1994 Cardiovascular auscultation of heart Overall: normal heart sounds 04/04/2015 None Full Exam - General 1994 Musculoskeletal lower extremity Inspection - ankle: swelling @ achilles tendon 04/04/2015 ttp over cyst on posterior surface of left achilles tendon Full Exam - General 1994 Musculoskeletal spine, ribs and pelvis Overall: spine benign 04/04/2015 None Full Exam - General 1994 Musculoskeletal spine, ribs and pelvis Overall: sacroiliac joint benign 04/04/2015 None Full Exam - General 1994 Musculoskeletal spine, ribs and pelvis Overall: good posture 04/04/2015 None Full Exam - General 1994 Musculoskeletal head and neck Overall: head atraumatic 04/04/2015 None Full Exam - General 1994 Musculoskeletal head and neck Overall: cervical spine benign 04/04/2015 None Full Exam - General 1994 Psychiatric orientation/consciousness Overall: oriented to person, place and time 04/04/2015 None Full Exam - General 1994 Psychiatric mood and affect Overall: normal mood and affect 04/04/2015 None Full Exam - General 1994 Constitutional general appearance Development: well developed 03/13/2015 None Full Exam - General 1994 Constitutional general appearance Development: appears stated age 0903/13/2015 None Full Exam - General 1994 Constitutional general appearance Hygiene/Attention to Grooming: good hygiene 03/13/2015 None Full Exam - General 1994 Eyes conjunctiva /eyelids Overall: conjunctiva clear 03/13/2015 None Full Exam - General 1994 Eyes conjunctiva /eyelids Overall: cornea clear 03/13/2015 None Full Exam - General 1994 Eyes conjunctiva /eyelids Overall: eyelids normal 03/13/2015 None Full Exam - General 1994 Eyes pupils and irises Overall: pupils equal, round, reactive to light and accomodation 03/13/2015 None Full Exam - General 1994 Ears/Nose/Throat otoscopic exam Overall: external auditory canals clear 03/13/2015 None Full Exam - General 1994 Ears/Nose/Throat otoscopic exam Overall: tympanic membranes clear 03/13/2015 None Full Exam - General 1994 Ears/Nose/Throat lips/teeth/gingiva Overall: benign lips 03/13/2015 None Full Exam - General 1994 Ears/Nose/Throat lips/teeth/gingiva Overall: normal dentition 03/13/2015 None Full Exam - General 1994 Ears/Nose/Throat oral cavity/pharynx/larynx Overall: oral mucosa clear 03/13/2015 None Full Exam - General 1994 Ears/Nose/Throat oral cavity/pharynx/larynx Overall: oropharyngeal mucosa clear 03/13/2015 None Full Exam - General 1994 Ears/Nose/Throat oral cavity/pharynx/larynx Overall: hypopharynx benign 03/13/2015 None Full Exam - General 1994 Ears/Nose/Throat oral cavity/pharynx/larynx Overall: no masses 03/13/2015 None Full Exam - General 1994 Respiratory auscultation Overall: breath sounds clear bilaterally 03/13/2015 None Full Exam - General 1994 Respiratory respiratory effort/rhythm Overall: no retractions 03/13/2015 None Full Exam - General 1994 Respiratory respiratory effort/rhythm Overall: normal rate 03/13/2015 None Full Exam - General 1994 Cardiovascular extremities Overall: no clubbing 03/13/2015 None Full Exam - General 1994 Cardiovascular auscultation of heart Overall: regular rate 03/13/2015 None Full Exam - General 1994 Cardiovascular auscultation of heart Overall: normal heart sounds 03/13/2015 None Full Exam - General 1994 Abdomen abdominal exam Overall: no tenderness 03/13/2015 None Full Exam - General 1994 Abdomen abdominal exam Overall: normal bowel sounds 03/13/2015 None Full Exam - General 1994 Lymphatic neck nodes Overall: anterior cervical chain benign 03/13/2015 None Full Exam - General 1994 Lymphatic neck nodes Overall: posterior cervical chain benign 03/13/2015 None Full Exam - General 1994 Musculoskeletal spine, ribs and pelvis Overall: spine benign 03/13/2015 None Full Exam - General 1994 Musculoskeletal spine, ribs and pelvis Overall: sacroiliac joint benign 03/13/2015 None Full Exam - General 1994 Musculoskeletal spine, ribs and pelvis Overall: good posture 03/13/2015 None Full Exam - General 1994 Musculoskeletal head and neck Overall: head atraumatic 03/13/2015 None Full Exam - General 1994 Musculoskeletal head and neck Overall: cervical spine benign 03/13/2015 None Full Exam - General 1994 Integument inspection of skin Overall: few scattered moles, no gross abnormalities 03/13/2015 None Full Exam - General 1994 Neurologic deep tendon reflexes Overall: deep tendon reflexes intact 03/13/2015 None Full Exam - General 1994 Neurologic cranial nerves Overall: crainial nerves 2 - 12 grossly intact 03/13/2015 None Full Exam - General 1994 Psychiatric orientation/consciousness Overall: oriented to person, place and time 03/13/2015 None Full Exam - General 1994 Psychiatric mood and affect Overall: normal mood and affect 03/13/2015 None Full Exam - General 1994 Musculoskeletal lower extremity Inspection - ankle: swelling @ achilles tendon 03/13/2015 ttp over cyst on posterior surface of left achilles tendon Procedures No Procedures data Vital Signs Date Vital 10/13/2016 Blood Pressure 1: 134/82 Code : 8480-6 BMI: 43.6 Code : 33291-5 Heart Rate 1 : 97 bpm Height: 5'3" SpO2: 97% Weight: 246 lbs 01/14/2016 Blood Pressure 1: 132/78 Code : 8480-6 BMI: 45.7 Code : 33436-4 Heart Rate 1 : 90 bpm Height: 5'3" SpO2: 98% Weight: 258 lbs 07/31/2015 Blood Pressure 1: 142/80 Code : 8480-6 BMI: 45.7 Code : 38838-2 Heart Rate 1 : 78 bpm Height: 5'3" SpO2: 96% Weight: 258 lbs 04/04/2015 Blood Pressure 1: 130/82 Code : 8480-6 BMI: 44.9 Code : 03425-5 Heart Rate 1 : 90 bpm Height: 5'3" SpO2: 96% Weight: 253 lbs 5 oz 03/13/2015 Blood Pressure 1: 140/86 Code : 8480-6 BMI: 45.2 Code : 68740-5 Heart Rate 1 : 87 bpm Height: 5'3" SpO2: 93% Weight: 255 lbs Functional Status No Functional Status data History of Present Illness Symptom Name Status Result Effective Date Notes hypothyroid Location at the level of the thyroid 10/13/2016 None hypothyroid Quality chronic 10/13/2016 None hypothyroid Onset and Resolution ongoing 10/13/2016 None hypothyroid Severity mild with subclinical signs 10/13/2016 None hypothyroid Alleviating Factors medication 10/13/2016 None hypothyroid Pertinent Findings dry skin 10/13/2016 None diabetes mellitus Quality non-insulin dependent 10/13/2016 None diabetes mellitus Alleviating Factors medication 10/13/2016 -metformin diabetes mellitus Exacerbating Factors diet 10/13/2016 None diabetes mellitus Pertinent Findings Denies dizziness 10/13/2016 None diabetes mellitus Pertinent Findings dyspnea 10/13/2016 -"sometimes" diabetes mellitus Pertinent Findings Denies nausea 10/13/2016 None cough Location in the throat 01/14/2016 None cough Quality constant 01/14/2016 None cough Quality dry None cough Quality hacking 01/14/2016 None cough Onset and Resolution sudden in onset 01/14/2016 None cough Onset of Symptom 1 weeks ago 01/14/2016 None cough Frequency of Episodes daily 01/14/2016 None cough Pertinent Findings chest discomfort 01/14/2016 None cough Pertinent Findings facial pain 01/14/2016 None cough Pertinent Findings hoarseness 01/14/2016 None cough Pertinent Findings nasal congestion 01/14/2016 None sinus congestion Onset and Resolution sudden in onset 01/14/2016 None sinus congestion Onset of Symptom 1 weeks ago 01/14/2016 None hypothyroid Location at the level of the thyroid 07/31/2015 None hypothyroid Quality chronic 07/31/2015 None hypothyroid Onset and Resolution ongoing 07/31/2015 None hypothyroid Severity mild with subclinical signs 07/31/2015 None hypothyroid Alleviating Factors medication 07/31/2015 None diabetes mellitus Quality non-insulin dependent 07/31/2015 None diabetes mellitus Test results Pt checking blood glucose at home, see scanned readings 2015 See booklet diabetes mellitus Glucose monitoring daily 07/31/2015 None diabetes mellitus Alleviating Factors medication 07/31/2015 -metformin diabetes mellitus Exacerbating Factors diet 07/31/2015 None diabetes mellitus Pertinent Findings Denies dizziness 07/31/2015 None diabetes mellitus Pertinent Findings dyspnea 07/31/2015 -"sometimes" diabetes mellitus Pertinent Findings Denies nausea 07/31/2015 None cough Quality acute None cough Quality dry 03/2016 None cough Quality intermittent 07/31/2015 None cough Onset and Resolution sudden in onset 07/31/2015 None hypothyroid Pertinent Findings dry skin 07/31/2015 None cough Onset of Symptom 1 weeks ago 07/31/2015 None cough Pertinent Findings Denies fever 07/31/2015 None sinus congestion Onset and Resolution sudden in onset 07/31/2015 None sinus congestion Onset of Symptom 1 weeks ago 07/31/2015 None sinus congestion Pertinent Findings cough 07/31/2015 None sinus congestion Pertinent Findings Denies fever 07/31/2015 None sinus congestion Pertinent Findings Denies vomiting 07/31/2015 None sinus congestion Quality acute 07/31/2015 None ankle pain Onset of Symptom 7 weeks ago 04/04/2015 None ankle pain Location on the left 04/04/2015 None ankle pain Location achilles tendon 04/04/2015 None ankle pain Onset and Resolution resolving 04/04/2015 None ankle pain Quality dull pain 04/04/2015 None ankle pain Severity mild 04/04/2015 None hypothyroid Location at the level of the thyroid 03/13/2015 None hypothyroid Quality chronic 03/13/2015 None hypothyroid Onset and Resolution ongoing 03/13/2015 None hypothyroid Severity mild with subclinical signs 03/13/2015 None hypothyroid Triggers no known associated factors 03/13/2015 None hypothyroid Alleviating Factors medication 03/13/2015 None ankle pain Location on the left 03/13/2015 None ankle pain Quality chronic 03/13/2015 None ankle pain Severity moderate 03/13/2015 None ankle pain Alleviating Factors rest 03/13/2015 None ankle pain Exacerbating Factors weight bearing 03/13/2015 None ankle pain Exacerbating Factors ankle motion 03/13/2015 None Advance Directives No Advance Directive data Encounters Encounter Performer Location Codes Date EST. PATIENT, LEVEL IV Diagnosis: Type 2 diabetes mellitus with hyperglycemia[ICD10: E11.65] Diagnosis: Other specified hypothyroidism[ICD10: E03.8] Diagnosis: Other care home (current) drug therapy[ICD10: Z79.899] Diagnosis: Umbilical hernia without obstruction or gangrene[ICD10: K42.9] [facility] CPT-4: 77226 10/13/2016 82909 EST. PATIENT, LEVEL IV Diagnosis: Other acute sinusitis[ICD10: J01.80] Diagnosis: Other allergic rhinitis[ICD10: J30.89] Diagnosis: Wheezing[ICD10: R06.2] [facility] CPT-4: 38055 01/14/2016 63282 EST. 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 PATIENT, LEVEL III Diagnosis: Achilles tendinitis, left leg[ICD10: M76.62] [facility] CPT-4: 43736 04/04/2015 ([id number]) OFFICE VISIT, NEW - LEVEL 4 Diagnosis: HYPERLIPIDEMIA[ICD9: 272.4] Diagnosis: DIABETES TYPE II[ICD9: 250.00] Diagnosis: HYPOTHYROIDISM[ICD9: 244.9] Diagnosis: ACHILLES TENDINITIS[ICD9: 726.71] [facility] CPT-4: 44091 03/13/2015 Plan of Care Planned Activity Notes Codes Status Date Referral: Arvind Briseno [address] [facility] Referral Completed 10/27/2016 Referral: Arvind Briseno [address] [facility] Referral Initiated 10/27/2016 Visit Plan: Umbilical hernia - will refer to Dr. Briseno for evaluation Diabetes Mellitus - controlled - per recent FSBS reports. I have recommended for the patient to have follow up labs prior to the next office visit. The patient has been instructed to continue with current medications as previously directed, continue with regular FSBS monitoring to assure continued control of diabetes. Pt to call for any acute concerns, complaints, or if the blood glucose readings are starting to become less controlled. Hypothyroidism - pt with chronic hypothyroidism, continue with current medication, will monitor pt to signs or symptoms of lack of adequate supplementation. Pt is to continue with current dose of medication unless directed otherwise. Check labs at regular intervals wither q 3 months or q 6 months based on previous levels of control. 10/13/2016 Appointment: Anyi Velázquez WPtel: [id number] (15 min) Moderate 10/13/2016 Patient Education: Patient Medication Summary Completed 10/13/2016 Care Plan: Referral Order SNOMED-CT : [id number] Pending 10/13/2016 Visit Plan: Sinusitis - Pt has acute infection - pain in face, maxillary region, Pt informed to use decongestant, RX given to patient, sinus rinses also recommended. Call if symptoms do not show improvement. Allergies - chronic - recommended pt to use allergy medication as prescribed. Pt has been counseled as to the appropriate use of the medication. Pt to call if allergy symptoms are not controlled with the medication. If using nasal spray , instructions as follows: Nasal spray- use twice daily, one spray per nostril twice daily, after 30 minutes, rinse out nose with saline spray.. Use opposite hand per nostril to spray in the nasal steroid allergy spray. 01/14/2016 Appointment: [facility] [address] [phone] (30 min) Complex 01/14/2016 Patient Education: Patient Medication Summary Completed 01/14/2016 Patient Education: Obesity Completed 01/14/2016 Patient Education: Patient Medication Summary Completed 11/04/2015 Appointment: (30 min) Complex 08/02/2015 Patient Education: Patient Medication Summary Completed 08/02/2015 Visit Plan: Sinusitis - Pt has acute infection - pain in face, maxillary region, Pt informed to use decongestant, RX given to patient, sinus rinses also recommended. Call if symptoms do not show improvement. Allergies - chronic - recommended pt to use allergy medication as prescribed. Pt has been counseled as to the appropriate use of the medication. Pt to call if allergy symptoms are not controlled with the medication. If using nasal spray , instructions as follows: Nasal spray- use twice daily, one spray per nostril twice daily, after 30 minutes, rinse out nose with saline spray.. Use opposite hand per nostril to spray in the nasal steroid allergy spray. Diabetes Mellitus - controlled - per recent FSBS reports. I have recommended for the patient to have follow up labs prior to the next office visit. The patient has been instructed to continue with current medications as previously directed, continue with regular FSBS monitoring to assure continued control of diabetes. Pt to call for any acute concerns, complaints, or if the blood glucose readings are starting to become less controlled. Hypothyroidism - pt with chronic hypothyroidism, continue with current medication, will monitor pt to signs or symptoms of lack of adequate supplementation. Pt is to continue with current dose of medication unless directed otherwise. Check labs at regular intervals wither q 3 months or q 6 months based on previous levels of control. 07/31/2015 Appointment: (15 min) Moderate 07/31/2015 Patient Education: Patient Medication Summary Completed 07/31/2015 Visit Plan: Achilles Tendonitis - Recommended pt to wear boot when not at work, pt released for full duty at work. Continue with naproxen. Call if not improving. 04/04/2015 Appointment: [facility] [phone] [facility] [place] (15 min) Moderate 04/04/2015 Patient Education: Patient Medication Summary Completed 04/04/2015 Visit Plan: Hypothyroidism - pt with chronic hypothyroidism , continue with current medication, will monitor pt to signs or symptoms of lack of adequate supplementation. Pt is to continue with current dose of medication unless directed otherwise. Check labs at regular intervals wither q 3 months or q 6 months based on previous levels of control. Diabetes Mellitus - controlled - per recent FSBS reports. I have recommended for the patient to have follow up labs prior to the next office visit. The patient has been instructed to continue with current medications as previously directed, continue with regular FSBS monitoring to assure continued control of diabetes. Pt to call for any acute concerns, complaints, or if the blood glucose readings are starting to become less controlled. Hyperlipidemia - pt has been counseled about appropriate diet, exercise, and need for low fat food choices. I have discussed the need for the patient to take medications as prescribed. If the patient has negative side effects from the medication, they are to CALL the office and not abruptly discontinue the medication without discussion with a practitioner in the office. We will check labs in 3-6 months for follow up on the patient's chronic medical problem and to assure normal liver response to medications. Achilles tendonitis - rx for walking boot, use while ambulating - pt needs to be off of work x 4 weeks, will re-eval pt in the next 1 month, may be able to release back to work at that appt. 03/13/2015 Appointment: Beba Cano WPtel[facility] [place] [facility] New Patient 03/13/2015 Patient Education: Patient Medication Summary Completed 03/13/2015 Patient Education: Hypertension Completed 03/13/2015 Patient Education: Patient Medication Summary Completed 10/24/2014 Referral: Arvind Briseno [address] [facility] Referral Initiated Instructions Comment . Sinusitis - Pt has acute infection - pain in face, maxillary region, Pt informed to use decongestant, RX given to patient, sinus rinses also recommended. Call if symptoms do not show improvement. Allergies - chronic - recommended pt to use allergy medication as prescribed. Pt has been counseled as to the appropriate use of the medication. Pt to call if allergy symptoms are not controlled with the medication. If using nasal spray, instructions as follows: Nasal spray- use twice daily, one spray per nostril twice daily, after 30 minutes, rinse out nose with saline spray.. Use opposite hand per nostril to spray in the nasal steroid allergy spray. . Umbilical hernia - will refer to Dr. Briseno for evaluation Diabetes Mellitus - controlled - per recent FSBS reports. I have recommended for the patient to have follow up labs prior to the next office visit. The patient has been instructed to continue with current medications as previously directed, continue with regular FSBS monitoring to assure continued control of diabetes. Pt to call for any acute concerns, complaints, or if the blood glucose readings are starting to become less controlled. Hypothyroidism - pt with chronic hypothyroidism, continue with current medication, will monitor pt to signs or symptoms of lack of adequate supplementation. Pt is to continue with current dose of medication unless directed otherwise. Check labs at regular intervals wither q 3 months or q 6 months based on previous levels of control. Zyrtec or generic over the counter in the mornings allergy medication and nasal spray daily Flonase or generic - If using nasal spray, instructions as follows: Nasal spray - use twice daily, one spray per nostril twice daily, after 30 minutes, rinse out nose with saline spray.. Use opposite hand per nostril to spray in the nasal steroid allergy spray. . Sinusitis - Pt has acute infection - pain in face, maxillary region, Pt informed to use decongestant, RX given to patient, sinus rinses also recommended. Call if symptoms do not show improvement. Allergies - chronic - recommended pt to use allergy medication as prescribed. Pt has been counseled as to the appropriate use of the medication. Pt to call if allergy symptoms are not controlled with the medication. If using nasal spray, instructions as follows: Nasal spray- use twice daily, one spray per nostril twice daily, after 30 minutes, rinse out nose with saline spray.. Use opposite hand per nostril to spray in the nasal steroid allergy spray. Diabetes Mellitus - controlled - per recent FSBS reports. I have recommended for the patient to have follow up labs prior to the next office visit. The patient has been instructed to continue with current medications as previously directed, continue with regular FSBS monitoring to assure continued control of diabetes. Pt to call for any acute concerns, complaints, or if the blood glucose readings are starting to become less controlled. Hypothyroidism - pt with chronic hypothyroidism, continue with current medication, will monitor pt to signs or symptoms of lack of adequate supplementation. Pt is to continue with current dose of medication unless directed otherwise. Check labs at regular intervals wither q 3 months or q 6 months based on previous levels of control. . Hypothyroidism - pt with chronic hypothyroidism, continue with current medication, will monitor pt to signs or symptoms of lack of adequate supplementation. Pt is to continue with current dose of medication unless directed otherwise. Check labs at regular intervals wither q 3 months or q 6 months based on previous levels of control. Diabetes Mellitus - controlled - per recent FSBS reports. I have recommended for the patient to have follow up labs prior to the next office visit. The patient has been instructed to continue with current medications as previously directed, continue with regular FSBS monitoring to assure continued control of diabetes. Pt to call for any acute concerns, complaints, or if the blood glucose readings are starting to become less controlled. Hyperlipidemia - pt has been counseled about appropriate diet, exercise, and need for low fat food choices. I have discussed the need for the patient to take medications as prescribed. If the patient has negative side effects from the medication, they are to CALL the office and not abruptly discontinue the medication without discussion with a practitioner in the office. We will check labs in 3-6 months for follow up on the patient's chronic medical problem and to assure normal liver response to medications. Achilles tendonitis - rx for walking boot, use while ambulating - pt needs to be off of work x 4 weeks, will re-eval pt in the next 1 month, may be able to release back to work at that appt. . Achilles Tendonitis - Recommended pt to wear boot when not at work, pt released for full duty at work. Continue with naproxen. Call if not improving.
[2018-01-11] MEDS ORDERED: LACTATED RINGERS 1,000 ML IV PRN (08:09)
[2018-01-11] MEDS ORDERED: ATRACURIUM 50 MG/5 ML (TRACRIUM) IV ONE (08:09)
[2018-01-11] MEDS ORDERED: MIDAZOLAM 2 MG/2 ML (VERSED) VIAL ONE (08:10)
[2018-01-11] MEDS ORDERED: fentaNYL INJECTION 100 MCG/2 ML AMP ONE (08:10)
[2018-01-11] MEDS ORDERED: ceFAZolin INJECTION 1,000 MG in NS (IVPB) 50 ML IV ONE (08:15)
[2018-01-11] MEDS ORDERED: metroNIDAZOLE 500MG/100ML IVPB 100 ML IV ONE (08:15)
[2018-01-11 08:20] VITALS: BP 123/88
[2018-01-11] MEDS ORDERED: FAMOTIDINE 20MG/2ML IV (PEPCID) IVP ONE (08:20)
[2018-01-11] MEDS ORDERED: FAMOTIDINE 20MG/2ML IV (PEPCID) ONE (08:25)
--- NOTE | 2018-01-11 08:30 | Progress Note-Pre Operative ---
Pre-Operative Progress Note H&P Reviewed The H&P was reviewed, patient examined and no changes noted. Date Seen by Provider: Jan 11, 2018 Time Seen by Provider: 08:20 Date H&P Reviewed: Jan 11, 2018 Time H&P Reviewed: 08:20 Pre-Operative Diagnosis: post menopausal bleeding, unable to tolerate exam in the office KALIA COSTA DO Jan 11, 2018 08:30
[2018-01-11] MEDS ORDERED: LIDOCAINE PF 2% 5 ML (XYLOCAINE) VIAL ONE (09:23)
[2018-01-11] MEDS ORDERED: DEXAMETHASONE 10 MG/ML (DECADRON) 1 ML VIAL ONE (09:23)
[2018-01-11] MEDS ORDERED: ONDANSETRON 4 MG/2 ML (SDV) Z0FRAN ONE (09:23)
[2018-01-11] MEDS ORDERED: proPOfol 200 MG/20 ML (DIPRIVAN) VIAL IV ONE (09:23)
[2018-01-11] MEDS ORDERED: SEVOFLURANE (ULTANE) 15 ML INHAL SOLN ONE (09:24)
--- NOTE | 2018-01-11 09:37 | Operative Report ---
Operative Report Date of Procedure/Surgery Jan 11, 2018 Surgeon (s) KALIA COSTA DO Microarray Analyst (s): none Post-Operative Diagnosis post menopausal bleeding, endometrial/cervical polyp Procedure Performed EUA, pap smear, dilation and curettage (polypectomy), hysteroscopy, Novasure endometrial ablation Description of Procedure Anesthesia Type: General Estimated blood loss (mL): minimal Specimen(s) collected/removed endometrial polyp Description of the Procedure with informed consent, the patient was taken to the operating room where general anesthesia was found to be adequate. A straight cath was used to drain the bladder. There was a virginal, intact hymen noted. Prior to prep, a pap smear was done. A speculum (posterior blade only of claus jimenez) was placed and a large polyp was noted (about 3-4 mm in diameter, prolapsed about 1 cm from the cervical os; appeared to be endometrial, on a long stalk). This was grasped and removed. I then gently dilated the cervix and a hysteroscope was done. No additional lesions were noted. There was some bleeding but otherwise atrophic endometrium was noted. I then removed the hysteroscope and fluid deficit was noted to be less than 100 ml. I then placed the NovaSure and measurements were taken (5.4 length, 2.6 cm width ). A compliance test was done with a puff of gas and once the compliance test was passed, the device was enabled to a power of 77. The ablation was begun and then halted once the endometrium was ablated. this took 64 seconds. Then I removed the instrument and a follow up hysteroscope was done, revealing an ablated endometrium. The scope was removed. The tenaculum removed from the cervix. There was minimal bleeding. There was superficial tearing of the hymen due to insertion of the speculum. This was controlled with AgNO3. The patient was awakened and taken to recovery in stable condition. Sponge, lap and instrument counts were correct times two. Findings of the Procedure large polyp at the cervical os, from endometrium slight proliferative endometrium noted, intact hymen Allergies and Home Medications Allergies Coded Allergies: No Known Drug Allergies (Unverified , 10/29/16) Home Medications Acetaminophen 500 Mg Tablet, 500 MG PO PRN, (Reported) Atorvastatin Calcium 40 Mg Tablet, 40 MG PO DAILY, (Reported) Canagliflozin 300 Mg Tablet, 300 MG PO DAILY, (Reported) Cyanocobalamin (Vitamin B-12) 2,500 Mcg Tablet, 2,500 MCG PO DAILY, (Reported) Levothyroxine Sodium 200 Mcg Tablet, 200 MCG PO DAILY, (Reported) Loratadine 10 Mg Tablet, 10 MG PO DAILY, (Reported) Metformin HCl 1,000 Mg Tablet, 1,000 MG PO BID, (Reported) Naproxen 500 Mg Tablet, 500 MG PO BID, (Reported) Patient Home Medication List Home Medication List Reviewed: Yes KALIA COSTA DO Jan 11, 2018 09:37
[2018-01-11] MEDS ORDERED: morphine INJ 10 MG/ML 1ML (SYR OR VIAL) IVP PRN (09:45)
[2018-01-11] MEDS ORDERED: KETOROLAC 30 MG/ML VIAL IVP ONE (09:45)
[2018-01-11] MEDS ORDERED: ONDANSETRON 4 MG/2 ML (SDV) Z0FRAN IVP PRN (09:45)
[2018-01-11] MEDS ORDERED: IBUPROFEN 600 MG (MOTRIN) TAB PO PRN (09:45)
--- NOTE | 2018-01-11 09:47 | Discharge Inst-Women's Service ---
Discharge Inst-Women's Serv Depart Medication/Instructions New, Converted or Re-Newed RX: RX on Chart Instructions expect some spotting or vaginal bleeding for up to two weeks May have increase in discharge temporarily about 10-14 days post op Final Diagnosis post menopausal bleeding polyp, endometrial Consults/Follow Up Additional Follow Up: Yes (1 for post op visit to discuss pathology (could be after I get back)) Activity Activity: Activity as Tolerated Driving Instructions: You May Drive NO SMOKING: NO SMOKING Nothing Inside Vagina: No Douching, No [place], No Tampons Diet Discharge Diet: No Restrictions, ADA Diet Symptoms to Report to : Bleeding Excessive, Pain Increased, Fever Over 101 Degrees F, Vaginal Bleeding Increase, Cramps in Feet or Legs, Vaginal Discharge Foul For Any Problems or Questions: Contact Your Physician Skin/Wound Care Bathing Instructions: KALIA Fox DO Jan 11, 2018 09:47
[2018-01-11] MEDS ORDERED: IBUP-1773 PO (09:50)
[2018-01-11] MEDS ORDERED: KETOROLAC 30 MG/ML VIAL ONE (09:53)
[2018-01-11 10:30] VITALS: BP 132/101
[2018-01-11 11:00] VITALS: BP 120/82
--- NOTE | 2018-01-11 11:19 | Anesthesia-General Post-Op ---
General Patient Condition Mental Status/LOC: Same as Preop Cardiovascular: Satisfactory Nausea/Vomiting: Absent Respiratory: Satisfactory Pain: Controlled Complications: Absent Post Op Complications Complications None Follow Up Care/Instructions Patient Instructions None needed. Anesthesia/Patient Condition Patient Condition Patient is doing well, no complaints, stable vital signs, no apparent adverse anesthesia problems. No complications reported per nursing. DORON NAVAS CRNA Jan 11, 2018 11:18
[2018-01-11 11:30] VITALS: BP 134/88
[2018-01-11 12:30] VITALS: BP 134/88
== END 2018-01-11 12:30 | disposition home or self-care (01) ==
LOC: SDC 07:54
PROVIDERS: ATTEND Obstetrics & Gynecology
DX: N95.0 Postmenopausal bleeding (principal); N84.0 Polyp of corpus uteri; E11.9 Type 2 diabetes mellitus without complications; G80.9 Cerebral palsy, unspecified; Z79.84 Long term (current) use of oral hypoglycemic drugs
CPT/HCPCS: 82962; 84703; 94664

== ENCOUNTER → 2018-04-04 | Outpatient (CLI) | payer MEDICARE, MEDICAID ==
[~2018-04-04] MED LIST changes: +IBUP-1773 PO; +METF-399 PO; -METF10002 PO
--- NOTE | 2018-04-04 14:50 | Diagnostic Imaging Report ---
INDICATION: Routine screening. COMPARISON: 01/05/2017 and 01/18/2015. TECHNIQUE: 2D and 3D bilateral screening mammography was performed with CAD. FINDINGS: Both breasts are heterogeneously dense, limiting the sensitivity of mammography. No mass or malignant appearing microcalcifications are seen. The axillae are unremarkable. IMPRESSION: No mammographic features suspicious for malignancy are identified. ACR BI-RADS Category 1: Negative. Result letter will be mailed to the patient. Note: At least 10% of breast cancer is not imaged by mammography. Dictated by: Dictated on workstation # [id number]
== END ==
LOC: RAD 10:53
PROVIDERS: ATTEND Nurse Practitioner Family
DX: Z12.31 Encounter for screening mammogram for malignant neoplasm of breast (principal)
CPT/HCPCS: 77067

== ENCOUNTER → 2019-08-23 | Outpatient (CLI) | payer MEDICARE, MEDICAID ==
--- NOTE | 2019-08-23 11:59 | Diagnostic Imaging Report ---
EXAMINATION: Digital mammogram bilateral screening. The current study was also evaluated with a Computer Aided Detection (CAD) system. 3-D tomosynthesis was also performed and reviewed. INDICATION: Screening. This study was compared to the prior exams of 04/04/2018, 01/18/2017, and 01/14/2016. At this time, there are no current complaints. FINDINGS: There are scattered fibroglandular densities in both breasts which could obscure a lesion. When compared to the prior study, there has been no significant change. There is no primary or secondary sign of malignancy noted. The 3D tomographic views also fail to show any sign of malignancy. IMPRESSION: 1. There is no evidence of malignancy. 2. The patient should have her annual bilateral screening mammogram on schedule in August 2020. ACR BI-RADS Category 1: Negative. Result letter will be mailed to the patient. Note: At least 10% of breast cancer is not imaged by mammography. Dictated by: Dictated on workstation # [id number]
== END ==
LOC: RAD 09:54
PROVIDERS: ATTEND Nurse Practitioner Family
DX: Z12.31 Encounter for screening mammogram for malignant neoplasm of breast (principal)
CPT/HCPCS: 77067

== ENCOUNTER 2020-01-06 14:26 | Emergency (ER) | payer MEDICARE, MEDICAID ==
[~2020-01-06] VITALS: Ht 160 cm; Wt 106.8 kg
--- OUTSIDE RECORDS SUMMARY | 2020-01-06 14:35 | XMS REPORT | CCD ---
Author Author Lucia Cano Organization Beba Cano MD, [facility] Address [address] [place] [address] Phone Care Team Providers Care Cutter First Name Role Phone PP Unavailable CCM Unavailable Summary Purpose Interface Exchange Insurance Providers Payer name Policy type / Coverage type Covered alliance party ID Effective Begin Date Effective End Date WPS Medicare Part B Medicare Part B [id number] Unknown [employer] Better [employer] in [facility] Part B [id number] Unk nown Family history Father Diagnosis Age At Onset Hyperlipidemia Unknown Mother Diagnosis Age At Onset Asthma Unknown Hyperlipidemia Unknown Arthritis Unknown Hypertension Unknown Brother Diagnosis Age At Onset Hyperlipidemia Unknown Hypertension Unknown Asthma Unknown Social History Social History Element Codes Description Effective Dates Marital status Unknown S jian 04/04/2015 Number of children Unknown 0 04/04/2015 Living arrangements Unknown House 04/04/2015 Education level Unknown High School Graduate 04/04/2015 Employment Unknown 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 Unknown Has never used illegal drugs 015 On Disability Unknown Yes 04/04/2015 Allergies, Adverse Reactions, Alerts Substance Reaction Codes Entered Date Inactivated Date Status * NO KNOWN DRUG JANINA RGIES Unknown 03/13/2015 No Inactive Date Active Past Medical History Illness Codes Condition Status Onset Date Resolved Date Encounter for immuni zation ICD-9: V04.81 ICD-10: Z23 Active 03/09/2019 Unknown Other vitamin B12 de ficiency anemias ICD-9: 281.1 ICD-10: D51.8 Active 09/28/2017 Unknown Acne vulgaris ICD-9: 706.1 ICD-10: L70.0 Active 09/21/2018 Unknown Other halfway (cur rent) drug therapy ICD-9: V58.69 ICD-10: Z79.899 Active 07/30/2015 Unknown Other specified hypo thyroidism ICD-9: 244.9 ICD-10: E03.8 Active 08/01/2015 Unknown Type 2 diabetes jamal itus with hyperglycemia ICD-9: 250.00 ICD-10: E11.65 Active 07/30/2015 Unknown Umbilical hernia wit hout obstruction or gangrene ICD-9: 553.1 ICD-10: K42.9 Active 10/13/2016 Unknown Mixed hyperlipidemia ICD-9: 272.4 ICD-10: E78.2 Active 07/30/2015 Unknown Encounter for screen ing mammogram for malignant neoplasm of breast ICD-9: V76.12 ICD-10: Z12.31 Active 11/03/2015 Unknown 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) ICD-9: 280.0 ICD-10: D50.0 Active 09/14/2017 Unknown Excessive and freque nt menstruation with irregular cycle ICD-9: 623.8 ICD-10: N92.1 Active 09/10/2017 Unknown Other acute sinusitis ICD-9: 461.8 ICD-10: J01.80 Active 01/13/2016 Unknown Other allergic rhinitis ICD-9: 477.8 ICD-10: J30.89 Active 01/13/2016 Unknown Wheezing ICD-9: 786.07 ICD-10: R06.2 Active 01/13/2016 Unknown Achilles tendinitis, left leg ICD-9: 726.71 ICD-10: M76.62 Active 03/12/2015 Unknown Diabetes Unknown Active 03/13/2015 Unknow n Hyperlipidemia Unknown Active 03/13/2015 Unknow n Hypertension Unknown Active 03/13/2015 Unknow n Hypothryroidism Unknown Active 03/13/2015 Unknow n ACHILLES TENDINITIS ICD- 9: 726.71 Active 03/12/2015 Unknown DIABETES TYPE II ICD-9: 250.00 Active 03/12/2015 Unknown HYPERLIPIDEMIA ICD-9: 272.4 Active 03/12/2015 Unknown HYPOTHYROIDISM ICD-9: 244.9 Active 03/12/2015 Unknown OTH SCREENING MAMMOGRAM ICD-9: V76.12 Active 10/23/2014 Unknown Problems Condition Codes Effectiv e Dates Condition Status Encounter for immuni zation ICD-9: V04.81 ICD-10: Z23 03/09/2019 Active Other vitamin B12 de ficiency anemias ICD-9: 281.1 ICD-10: D51.8 09/28/2017 Active Acne vulgaris ICD-9: 706.1 ICD-10: L70.0 09/21/2018 Active 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 ICD-9: V58.69 ICD-10: Z79.899 07/30/2015 Active Other specified hypo thyroidism ICD-9: 244.9 ICD-10: E03.8 08/01/2015 Active Type 2 diabetes jamal itus with hyperglycemia ICD-9: 250.00 ICD-10: E11.65 07/30/2015 Active Umbilical hernia wit hout obstruction or gangrene ICD-9: 553.1 ICD-10: K42.9 10/13/2016 Active Mixed hyperlipidemia ICD-9: 272.4 ICD-10: E78.2 07/30/2015 Active Encounter for screen ing mammogram for malignant neoplasm of breast ICD-9: V76.12 ICD-10: Z12.31 11/03/2015 Active 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) ICD-9: 280.0 ICD-10: D50.0 09/14/2017 Active Excessive and freque nt menstruation with irregular cycle ICD-9: 623.8 ICD-10: N92.1 09/10/2017 Active Other acute sinusitis ICD-9: 461.8 ICD-10: J01.80 01/13/2016 Active Other allergic rhinitis ICD-9: 477.8 ICD-10: J30.89 01/13/2016 Active Wheezing ICD-9: 786.07 ICD-10: R06.2 01/13/2016 Active Achilles tendinitis, left leg ICD-9: 726.71 ICD-10: M76.62 03/12/2015 Active Diabetes Unknown 03/13/2015 Active Hyperlipidemia Unknown 03/13/2015 Active Hypertension Unknown 03/13/2015 Active Hypothryroidism Unknown 03/13/2015 Active ACHILLES TENDINITIS ICD- 9: 726.71 03/12/2015 Active DIABETES TYPE II ICD-9: 250.00 03/12/2015 Active HYPERLIPIDEMIA ICD-9: 272.4 03/12/2015 Active HYPOTHYROIDISM ICD-9: 244.9 03/12/2015 Active OTH SCREENING MAMMOGRAM ICD-9: V76.12 10/23/2014 Active Medications Medication Codes Instruc tions Start Date Stop Date Sta tus Fill Instructions cyanocobalamin (vit B-12) 1,000 mcg/mL injection solution RxNorm: 780527 Milliliter(s) Inj 03/09/2019 03/09/2019 Inactive Tamiflu 75 mg capsule RxNorm: 450663 1 Capsule(s) PO daily 03/09/2019 03/18/2019 Active Tamiflu 75 mg capsule RxNorm: 166422 1 Capsule(s) PO daily 03/09/2019 03/08/2019 Inactive cyanocobalamin (vit B-12) 1,000 mcg/mL injection solution RxNorm: 077618 Milliliter(s) Inj 02/01/2019 02/01/2019 Inactive cyanocobalamin (vit B-12) 1,000 mcg/mL injection solution RxNorm: 290419 Milliliter(s) Inj 01/03/2019 01/03/2019 Inactive Lipitor 40 mg tablet RxNorm: 615302 TAKE 1 TABLET BY MOUTH DAILY 12/13/2018 12/07/2019 Active Generic For:LIPITOR 40MG 12/13/2018 9:1 7:44 AM naproxen 500 mg tablet RxNorm: 822768 TAKE 1 TABLET BY MOUTH TWICE DAILY 11/15/2018 05/13/2019 Ac tive Generic For:NAPROSYN 500MG 11/15/2018 1 1:09:17 AM N O T I C E Last quantity doesn't match original quantity Farxiga 10 mg tablet RxNorm: 7826936 1 Tablet(s) PO daily 09/21/2018 09/20/[address] of invokana Farxiga 10 mg tablet RxNorm: 7594483 1 Tablet(s) PO daily 09/21/2018 01/18/[address] of invokana cyanocobalamin (vit B-12) 1,000 mcg/mL injection solution RxNorm: 791938 Milliliter(s) Inj 09/13/2018 09/13/2018 Inactive cyanocobalamin (vit B-12) 1,000 mcg/mL injection solution RxNorm: 353421 Milliliter(s) Inj 08/11/2018 08/11/2018 Inactive naproxen 500 mg tablet RxNorm: 105438 TAKE 1 TABLET BY MOUTH TWICE DAILY 08/09/2018 11/06/2018 In active Generic For:NAPROSYN 500MG 08/09/2018 1 1:14:27 AM N O T I C E Last quantity doesn't match original quantity levothyroxine 200 mc g tablet RxNorm: 472755 1 Tablet(s) PO daily to take with the 50mcg daily to equal 250mcg daily 07/19/2018 04/14/2019 Active cyanocobalamin (vit B-12) 1,000 mcg/mL injection solution RxNorm: 566107 Milliliter(s) Inj 06/29/2018 06/29/2018 Inactive naproxen 500 mg tablet RxNorm: 661539 TAKE 1 TABLET BY MOUTH TWICE DAILY 05/19/2018 08/08/2018 In active Generic For:NAPROSYN 500MG 05/19/2018 1 0:56:16 AM N O T I C E Last quantity doesn't match original quantity Kenalog 40 mg/mL debora pension for injection RxNorm: 0647739 Milliliter(s) Inj 03/23/2018 03/23/2018 In active levothyroxine 50 mcg tablet RxNorm: 101390 TAKE 1 TABLET BY MOUT H ONCE DAILY WITH 200MCG (250MCG TOTAL) 03/11/2018 06/08/2018 Inactive Generic For:SYNTHROID 50MCG TAB 03/11/2018 9:09:32 AM naproxen 500 mg tablet RxNorm: 364098 TAKE 1 TABLET BY MOUTH TWICE DAILY 02/25/2018 05/18/2018 In active Generic For:NAPROSYN 500MG 02/25/2018 1 2:39:53 PM N O T I C E Last quantity doesn't match original quantity cyanocobalamin (vit B-12) 1,000 mcg/mL injection solution RxNorm: 574167 Milliliter(s) Inj 02/07/2018 02/07/2018 Inactive metformin 1,000 mg t ablet RxNorm: 742785 TAKE 1 TABLET BY MOUT H TWICE A DAY 01/19/2018 01/13/2019 In active Generic For:*GLUCOPHAGE 1000MG 01/20/20 10:20:50 AM cyanocobalamin (vit B-12) 1,000 mcg/mL injection solution RxNorm: 121844 Milliliter(s) Inj 01/13/2018 01/13/2018 Inactive cyanocobalamin (vit B-12) 1,000 mcg/mL injection solution RxNorm: 127257 Milliliter(s) Inj 12/06/2017 12/06/2017 Inactive Invokana 300 mg tablet RxNorm: 4978326 TAKE 1 TABLET BY MOUTH DAILY 11/08/2017 09/20/2018 In active 11/05/2017 5:10:44 PM naproxen 500 mg tablet RxNorm: 980781 TAKE 1 TABLET BY MOUTH TWICE DAILY 11/08/2017 02/05/2018 In active Generic For:NAPROSYN 500MG 11/08/2017 9 :14:56 AM N O T I C E Last quantity doesn't match original quantity Lipitor 40 mg tablet RxNorm: 867162 TAKE 1 TABLET BY MOUTH DAILY 11/08/2017 11/02/2018 Inactive Generic For:LIPITOR 40MG 11/05/2017 5:1 0:24 PM levothyroxine 50 mcg tablet RxNorm: 416685 1 Tablet(s) PO daily to take with the 200mcg daily to equal 250mcg daily 11/08/2017 02/05/2018 Inactive cyanocobalamin (vit B-12) 1,000 mcg/mL injection solution RxNorm: 187844 1 Milliliter(s) Inj 11/01/2017 11/01/2017 Inactive cyanocobalamin (vit B-12) 1,000 mcg/mL injection solution RxNorm: 407175 1 Milliliter(s) Inj 09/28/2017 09/28/2017 Inactive levothyroxine 200 mc g tablet RxNorm: 667208 1 Tablet(s) PO daily to take with the 50mcg daily to equal 250mcg daily 09/14/2017 06/10/2018 Inactive levothyroxine 50 mcg tablet RxNorm: 544488 1 Tablet(s) PO daily to take with the 200mcg daily to equal 250mcg daily 09/14/2017 11/07/2017 Inactive naproxen 500 mg tablet RxNorm: 908076 TAKE 1 TABLET BY MOUTH TWICE DAILY 08/05/2017 11/02/2017 In active Generic For:NAPROSYN 500MG 08/05/2017 9 :04:47 AM N O T I C E Last quantity doesn't match original quantity naproxen 500 mg tablet RxNorm: 824160 TAKE 1 TABLET BY MOUTH TWICE DAILY 04/19/2017 08/04/2017 In active Generic For:NAPROSYN 500MG 04/19/2017 1 :49:28 PM Lipitor 40 mg tablet RxNorm: 277740 TAKE 1 TABLET BY MOUTH DAILY 03/22/2017 11/07/2017 Inactive Generic For:LIPITOR 40MG 03/20/2017 9:0 5:49 AM levothyroxine 25 mcg tablet RxNorm: 025237 1 Tablet(s) PO daily to take with her 200mcg to equal 225 mcg daily 03/22/2017 04/08/2017 Inactive Invokana 300 mg tablet RxNorm: 5476275 TAKE 1 TABLET BY MOUTH DAILY 12/21/2016 09/16/2017 In active 12/21/2016 9:03:03 AM levothyroxine 200 mc g tablet RxNorm: 874924 1 Tablet(s) PO daily 12/21/2016 09/13/2017 Inactive metformin 1,000 mg t ablet RxNorm: 989840 TAKE 1 TABLET BY MOUT H TWICE A DAY 11/26/2016 11/20/2017 In active Generic For:*GLUCOPHAGE 1000MG 11/27/19 17 1:05:15 PM naproxen 500 mg tablet RxNorm: 166656 1 Tablet(s) PO BID 10/21/2016 04/18/2017 Inactive levothyroxine 25 mcg tablet RxNorm: 634245 1 Tablet(s) PO daily to take with her 200mcg to equal 225 mcg daily 10/13/2016 01/10/2017 Inactive levothyroxine 50 mcg tablet RxNorm: 768393 1 Tablet(s) PO daily 09/21/2016 10/12/2016 Inactive Invokana 300 mg tablet RxNorm: 5279486 1 Tablet(s) PO daily 09/21/2016 12/19/2016 Inactive metformin 1,000 mg t ablet RxNorm: 693125 TAKE 1 TABLET BY MOUT H TWICE A DAY 09/21/2016 11/25/2016 In active Generic For:*GLUCOPHAGE 1000MG 09/22/19 17 8:53:30 AM levothyroxine 200 mc g tablet RxNorm: 306732 1 Tablet(s) PO daily 09/21/2016 12/19/2016 Inactive Lipitor 40 mg tablet RxNorm: 509539 TAKE 1 TABLET BY MOUTH DAILY 06/23/2016 03/19/2017 Inactive Generic For:LIPITOR 40MG 06/23/2016 9:1 2:42 AM levothyroxine 50 mcg tablet RxNorm: 666649 1 Tablet(s) PO daily TAKE 1 TABLET BY MOUTH DAILY 06/23/2016 09/20/2016 Inactive Generic For:SYNTHROID 50MCG TAB 06/23/2016 9:22:58 AM metformin 1,000 mg t ablet RxNorm: 741247 TAKE 1 TABLET BY MOUT H TWICE A DAY 06/23/2016 09/20/2016 In active Generic For:*GLUCOPHAGE 1000MG 06/23/19 17 9:12:46 AM levothyroxine 200 mc g tablet RxNorm: 730604 1 Tablet(s) PO daily 04/24/2016 08/21/2016 Inactive naproxen 500 mg tablet RxNorm: 084666 1 Tablet(s) PO BID 03/26/2016 10/20/2016 Inactive levothyroxine 50 mcg tablet RxNorm: 121822 1 Tablet(s) PO daily 03/25/2016 06/23/2016 Inactive Flonase Allergy Reli ef 50 mcg/actuation nasal spray,suspension RxNorm: 8758230 1 [place] NASAL BID 01/14/2016 No Stop Date Active prednisone 20 mg tablet RxNorm: 152600 2 Tablet(s) PO daily 01/14/2016 01/16/2016 Inactive Zithromax Z-Michael 250 mg tablet RxNorm: 105077 Tablet(s) PO 01/14/2016 02/25/2016 Inactive levothyroxine 200 mc g tablet RxNorm: 022071 1 Tablet(s) PO daily 11/25/2015 03/23/2016 Inactive levothyroxine 50 mcg tablet RxNorm: 580516 1 Tablet(s) PO daily 11/25/2015 03/23/2016 Inactive Invokana 300 mg tablet RxNorm: 3866809 1 Tablet(s) PO daily 11/25/2015 09/20/2016 Inactive metformin 1,000 mg t ablet RxNorm: 459724 TAKE 1 TABLET BY MOUT H TWICE A DAY 08/22/2015 05/17/2016 In active Generic For:*GLUCOPHAGE 1000MG N O T I C E PRESCRIPTION PREVIOUSLY AUTHORIZED BY DOCTOR:PEDRO SIMPSON levothyroxine 200 mc g tablet RxNorm: 091994 1 Tablet(s) PO daily 08/02/2015 11/24/2015 Inactive levothyroxine 25 mcg tablet RxNorm: 934792 1 Tablet(s) PO daily 08/02/2015 11/24/2015 Inactive levothyroxine 25 mcg tablet RxNorm: 225887 1 Tablet(s) PO daily 08/02/2015 08/01/2015 Inactive Zithromax Z-Michael 250 mg tablet RxNorm: 178980 Tablet(s) PO 07/31/2015 10/27/2015 Inactive naproxen 500 mg tablet RxNorm: 228743 1 Tablet(s) PO BID 07/31/2015 02/25/2016 Inactive Lipitor 40 mg tablet RxNorm: 919720 TAKE 1 TABLET BY MOUTH DAILY 05/26/2015 05/19/2016 Inactive Generic For:LIPITOR 40MG 05/25/2015 10: 36:19 AM levothyroxine 200 mc g tablet RxNorm: 310920 TAKE 1 TABLET ONCE DA SUKUMAR WITH 50MCG TABLET TO MAKE 250MCG. 05/26/2015 07/30/2015 Inactive Generic For:SYNTHROID 200MC G TAB 05/25/2015 10:36:11 AM Invokana 100 mg tablet RxNorm: 4631218 1 Tablet(s) PO daily 03/15/2015 03/14/2015 Inactive Invokana 100 mg tablet RxNorm: 7501170 1 Tablet(s) PO daily 03/15/2015 11/24/2015 Inactive naproxen 500 mg tablet RxNorm: 371955 1 Tablet(s) PO BID 03/13/2015 07/30/2015 Inactive metformin 1,000 mg t ablet RxNorm: 096967 1 Tablet(s) PO BID 03/13/2015 08/21/2015 Inactive levothyroxine 200 mc g tablet RxNorm: 536188 TAKE 1 TABLET ONCE DA SUKUMAR WITH 50MCG TABLET TO MAKE 250MCG. 02/12/2015 05/12/2015 Inactive Generic For:SYNTHROID 200MC G TAB 02/12/2015 11:50:50 AM Lipitor 40 mg tablet RxNorm: 000805 TAKE 1 TABLET BY MOUTH DAILY 02/12/2015 05/12/2015 Inactive Generic For:LIPITOR 40MG 02/12/2015 11: 50:55 AM levothyroxine 200 mc g tablet RxNorm: 211696 1 Tablet(s) PO daily 11/19/2014 02/11/2015 Inactive levothyroxine 200 mc g tablet RxNorm: 938481 1 Tablet(s) PO daily 11/19/2014 11/18/2014 Inactive Lipitor 40 mg tablet RxNorm: 983634 1 Tablet(s) PO daily call and make appt. 11/19/2014 02/11/2015 In active Lipitor 40 mg tablet RxNorm: 453612 1 Tablet(s) PO daily call and make appt. 11/15/2014 11/18/2014 In active Lipitor 40 mg tablet RxNorm: 515731 1 Tablet(s) PO daily call and make appt. 11/15/2014 11/14/2014 In active [place] with Iro n oral RxNorm: oral No Start D ate Active Vitamin B-12 1,000 m cg/mL injection solution RxNorm: 859128 1 Milliliter(s) Inj m onthly No Start Date Active levothyroxine 200 mc g tablet RxNorm: 239641 1 Tablet(s) PO daily No Start Date 08/01/2015 Inactive Medication Administered Medication Codes Instruc tions Start Date Status cyanocobalamin (vit B-12) 1,000 mcg/mL injection solut ion RxNorm: 261187 Milliliter 03/09/2019 Active cyanocobalamin (vit B-12) 1,000 mcg/mL injection solut ion RxNorm: 566278 Milliliter 02/01/2019 No longer Active cyanocobalamin (vit B-12) 1,000 mcg/mL injection solut ion RxNorm: 823945 Milliliter 01/03/2019 No longer Active cyanocobalamin (vit B-12) 1,000 mcg/mL injection solut ion RxNorm: 567634 Milliliter 09/13/2018 No longer Active cyanocobalamin (vit B-12) 1,000 mcg/mL injection solut ion RxNorm: 367352 Milliliter 08/11/2018 No longer Active cyanocobalamin (vit B-12) 1,000 mcg/mL injection solut ion RxNorm: 289019 Milliliter 06/29/2018 No longer Active Kenalog 40 mg/mL suspension for injection RxNorm: 7346734 Milliliter 03/23/2018 No longer Active cyanocobalamin (vit B-12) 1,000 mcg/mL injection solut ion RxNorm: 861672 Milliliter 02/07/2018 No longer Active cyanocobalamin (vit B-12) 1,000 mcg/mL injection solut ion RxNorm: 156994 Milliliter 01/13/2018 No longer Active cyanocobalamin (vit B-12) 1,000 mcg/mL injection solut ion RxNorm: 709777 Milliliter 12/06/2017 No longer Active cyanocobalamin (vit B-12) 1,000 mcg/mL injection solut ion RxNorm: 841925 1Milliliter 11/01/2017 No longer Active cyanocobalamin (vit B-12) 1,000 mcg/mL injection solut ion RxNorm: 948480 1Milliliter 09/28/2017 No longer Active Immunizations Vaccine Codes Date Status Influenza CVX: 141 03/21 completed Assessments Condition Codes Effectiv e Dates Encounter for immunization ICD-10: Z 23 ICD-9: V04.81 03/09/2019 Other vitamin B12 deficiency anemias ICD-10: D51.8 ICD-9: 281.1 02/01/2019 Type 2 diabetes mellitus with hyperglycemia ICD-10: E11.65 ICD-9: 250.00 09/21/2018 Acne vulgaris ICD-10: L70.0 ICD-9: 706.1 09/21/2018 Other specified hypothyroidism ICD-1 0: E03.8 ICD-9: 244.9 09/21/2018 Mixed hyperlipidemia ICD-10: E78.2 ICD-9: 272.4 09/19/2018 Encounter for screening mammogram for ma lignant neoplasm of breast ICD-10: Z12.31 ICD-9: V76.12 04/05/2018 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 89 ICD-9: 477.8 01/14/2016 Wheezing ICD-10: R06.2 ICD-9: 786.07 01/14/2016 Achilles tendinitis, left leg ICD-10 : M76.62 ICD-9: 726.71 04/04/2015 HYPERLIPIDEMIA ICD-9: 272.4 03/13/2015 ACHILLES TENDINITIS ICD-9: 726.71 03/13/2015 DIABETES TYPE II ICD-9: 250.00 03/13/2015 HYPOTHYROIDISM ICD-9: 244.9 03/13/2015 OTH SCREENING MAMMOGRAM ICD-9: V76.12 10/24/2014 Reason For Visit Reason For Visit Effective Dates Notes vaccination against influenza 03/09/2019 hypothyroid 09/21/2018 hypothyroid 09/10/2017 hypothyroid 10/13/2016 cough 01/14/2016 hypothyroid 07/31/2015 ankle pain 04/04/2015 hypothyroid 03/13/2015 Results Observation Observation Code Item Item Code Result Date Tsh Ord6 TSH (3rd IS) 0.94 uIU/mL 11/07/2018 Free T4 Ozb985 FREE T4 1.21 ng/dL 11/07/2018 Free T4 Duc176 FREE T4 1.22 ng/dL 09/20/2018 Cbc With Differential Ord2 WBC 9.29 K/ul 09/20/2018 Cbc With Differential Ord2 RBC 4.60 M/ul 09/20/2018 Cbc With Differential Ord2 HGB 11.5 g/dl 09/20/2018 Cbc With Differential Ord2 Neut% 68.6 % 09/20/2018 Cbc With Differential Ord2 HCT 38.0 % 09/20/2018 Cbc With Differential Ord2 Lymph% 18.6 % 09/20/2018 Cbc With Differential Ord2 MCV 82.6 fl 09/20/2018 Cbc With Differential Ord2 MCH 25.0 pg 09/20/2018 Cbc With Differential Ord2 [place]% 8.1 % 09/20/2018 Cbc With Differential Ord2 Eos% 4.2 % 09/20/2018 Cbc With Differential Ord2 MCHC 30.3 pg 09/20/2018 Cbc With Differential Ord2 Baso% 0.5 % 09/20/2018 Cbc With Differential Ord2 PLT 64 PLATLET CLUMPS NOTED K/ul 09/20/2018 Cbc With Differential Ord2 RDW 16.3 % 09/20/2018 Cbc With Differential Ord2 Neut ABS# 6.37 K/ul 09/20/2018 Cbc With Differential Ord2 Lymph ABS# 1.73 K/ul 09/20/2018 Cbc With Differential Ord2 [place] ABS# 0.8 K/ul 09/20/2018 Cbc With Differential Ord2 Eos ABS# 0.4 K/ul 09/20/2018 Cbc With Differential Ord2 Baso ABS# 0.1 K/ul 09/20/2018 Lipid Ord30 CHOL 176 mg/dL 09/20/2018 Lipid Ord30 HDL 55.0 mg/dl 09/20/2018 Lipid Ord30 TRIG 133 mg/dL 09/20/2018 Lipid Ord30 LDL 94 mg/dL 09/20/2018 Lipid Ord30 C/HDL 3.2 Ratio 09/20/2018 Comp Metabolic Ykv205 NA 140 mEq/L 09/20/2018 Comp Metabolic Aeo531 K 4.4 mEq/L 09/20/2018 Comp Metabolic Yos346 CL 104 mEq/L 09/20/2018 Comp Metabolic Iec955 CO2 27.0 mEq/L 09/20/2018 Comp Metabolic Gqb037 AN ION GAP 13 09/20/2018 Comp Metabolic Riz455 GL UCOSE 104 mg/dL 09/20/2018 Comp Metabolic Kgo732 Cr eat 0.6 mg/dL 09/20/2018 Comp Metabolic Ylm912 eG FR 112 ml/min/1.73m2 07/2018 Comp Metabolic Zbq955 BUN 18 mg/dL 09/20/2018 Comp Metabolic Mdm633 B/ C Ratio 29.5 Ratio 09/20/2018 Comp Metabolic Dzq081 CA LCIUM 9.4 mg/dL 09/20/2018 Comp Metabolic Idv541 AL K PHOS 97 U/L 09/20/2018 Comp Metabolic Ahh640 T(SGOT) 13 U/L 09/20/2018 Comp Metabolic Yxm620 AL T(SGPT) 16 U/L 09/20/2018 Comp Metabolic Ivv490 BI LI T 0.2 mg/dL 09/20/2018 Comp Metabolic Kkz444 AL BUMIN 4.0 g/dL 09/20/2018 Comp Metabolic Igx987 TP RO 7.0 g/dL 09/20/2018 Comp Metabolic Tci810 GL OB 3.0 g/dL 09/20/2018 Comp Metabolic Bkb108 A/ G Ratio 1.4 Ratio 09/20/2018 Comp Metabolic Nqb900 Os mo 282 mOsmo 09/20/2018 %Hba1C Vtd928 % HbA1c 13873-1 6.6 % 09/20/2018 %Hba1C Akb442 Gluc Ave 143 mg/dL 09/20/2018 Tsh Ord6 TSH (3rd IS) 1.85 uIU/mL 09/20/2018 Hgb & Hct Ord65 HGB 9.7 g/dl 10/06/2017 Hgb & Hct Ord65 HCT 33.5 % 10/06/2017 Hgb & Hct Ord65 HGB 8.6 g/dl 09/24/2017 Hgb & Hct Ord65 HCT 30.4 % 09/24/2017 B12 Zhu531 B12 124.00 pg/ml 09/15/2017 Cbc With Differential Ord2 WBC 10.22 K/ul 09/15/2017 Cbc With Differential Ord2 RBC 4.40 M/ul 09/15/2017 Cbc With Differential Ord2 HGB 8.8 g/dl 09/15/2017 Cbc With Differential Ord2 HCT 31.4 % 09/15/2017 Cbc With Differential Ord2 Neut% 67.6 % 09/15/2017 Cbc With Differential Ord2 MCV 71.4 fl 09/15/2017 Cbc With Differential Ord2 Lymph% 19.0 % 09/15/2017 Cbc With Differential Ord2 MCH 20.0 pg 09/15/2017 Cbc With Differential Ord2 [place]% 7.7 % 09/15/2017 Cbc With Differential Ord2 MCHC 28.0 pg 09/15/2017 Cbc With Differential Ord2 Eos% 5.1 % 09/15/2017 Cbc With Differential Ord2 PLT 606 K/ul 09/15/2017 Cbc With Differential Ord2 Baso% 0.6 % 09/15/2017 Cbc With Differential Ord2 RDW 17.7 % 09/15/2017 Cbc With Differential Ord2 Neut ABS# 6.91 K/ul 09/15/2017 Cbc With Differential Ord2 Lymph ABS# 1.94 K/ul 09/15/2017 Cbc With Differential Ord2 [place] ABS# 0.8 K/ul 09/15/2017 Cbc With Differential Ord2 Eos ABS# 0.5 K/ul 09/15/2017 Cbc With Differential Ord2 Baso ABS# 0.1 K/ul 09/15/2017 Tibc Ord40 Iron 21 ug/dl 09/15/2017 Tibc Ord40 UIBC 432 ug/dL 09/15/2017 Tibc Ord40 TIBC 453 ug/dL 09/15/2017 Tibc Ord40 Fe-%Sat 4.6 % 09/15/2017 Folate Ord36 Folate 15.31 ng/mL 09/15/2017 Ferritin Ord22 FERRITIN 4.3 ng/mL 09/15/2017 Free T4 Mrd890 FREE T4 0.88 ng/dL 09/10/2017 %Hba1C Lku015 % HbA1c 24112-4 6.7 % 09/10/2017 %Hba1C Fkb984 Gluc Ave 146 mg/dL 09/10/2017 Cbc With Differential Ord2 WBC 8.92 K/ul 09/10/2017 Cbc With Differential Ord2 RBC 4.19 M/ul 09/10/2017 Cbc With Differential Ord2 HGB 8.6 g/dl 09/10/2017 Cbc With Differential Ord2 HCT 30.1 % 09/10/2017 Cbc With Differential Ord2 Neut% 62.9 % 09/10/2017 Cbc With Differential Ord2 MCV 71.8 fl 09/10/2017 Cbc With Differential Ord2 Lymph% 23.5 % 09/10/2017 Cbc With Differential Ord2 MCH 20.5 pg 09/10/2017 Cbc With Differential Ord2 [place]% 8.0 % 09/10/2017 Cbc With Differential Ord2 MCHC 28.6 pg 09/10/2017 Cbc With Differential Ord2 Eos% 5.3 % 09/10/2017 Cbc With Differential Ord2 PLT 576 K/ul 09/10/2017 Cbc With Differential Ord2 Baso% 0.3 % 09/10/2017 Cbc With Differential Ord2 RDW 17.4 % 09/10/2017 Cbc With Differential Ord2 Neut ABS# 5.61 K/ul 09/10/2017 Cbc With Differential Ord2 Lymph ABS# 2.10 K/ul 09/10/2017 Cbc With Differential Ord2 [place] ABS# 0.7 K/ul 09/10/2017 Cbc With Differential Ord2 Eos ABS# 0.5 K/ul 09/10/2017 Cbc With Differential Ord2 Baso ABS# 0.0 K/ul 09/10/2017 Comp Metabolic Cgu131 NA 139 mEq/L 09/10/2017 Comp Metabolic Day486 K 4.6 mEq/L 09/10/2017 Comp Metabolic Frg935 CL 103 mEq/L 09/10/2017 Comp Metabolic Zjp269 CO2 28.0 mEq/L 09/10/2017 Comp Metabolic Gdg480 AN ION GAP 13 09/10/2017 Comp Metabolic Yqd175 GL UCOSE 91 mg/dL 09/10/2017 Comp Metabolic Agp115 Cr eat 0.6 mg/dL 09/10/2017 Comp Metabolic Olg810 eG FR 117 ml/min/1.73m2 08/20 Comp Metabolic Xqe774 BUN 22 mg/dL 09/10/2017 Comp Metabolic Dla585 B/ C Ratio 37.3 Ratio 09/10/2017 Comp Metabolic Zsx794 CA LCIUM 9.6 mg/dL 09/10/2017 Comp Metabolic Cki040 AL K PHOS 100 U/L 09/10/2017 Comp Metabolic Ifr562 T(SGOT) 12 U/L 09/10/2017 Comp Metabolic Igc610 AL T(SGPT) 13 U/L 09/10/2017 Comp Metabolic Pba960 BI LI T 0.2 mg/dL 09/10/2017 Comp Metabolic Bod568 AL BUMIN 3.9 g/dL 09/10/2017 Comp Metabolic Uij209 TP RO 7.0 g/dL 09/10/2017 Comp Metabolic Cli358 GL OB 3.1 g/dL 09/10/2017 Comp Metabolic Sbo769 A/ G Ratio 1.3 Ratio 09/10/2017 Comp Metabolic Lpj715 Os mo 280 mOsmo 09/10/2017 Tsh Ord6 TSH (3rd IS) 6.83 uIU/mL 09/10/2017 Free T4 Cro082 FREE T4 1.53 ng/dL 04/07/2017 Tsh Ord6 hTSH II 0.55 uIU/mL 04/07/2017 Tsh Ord6 hTSH II 0.55 uIU/mL 12/30/2016 Free T4 Idh450 FREE T4 1.15 ng/dL 12/30/2016 %Hba1C Yts402 % HbA1c 11542-0 6.0 % 10/01/2016 %Hba1C Pel790 Gluc Ave 126 mg/dL 10/01/2016 Tsh Ord6 hTSH II 0.19 uIU/mL 10/01/2016 Comp Metabolic Kbc839 NA 139 mEq/L 10/01/2016 Comp Metabolic Ywa570 K 4.6 mEq/L 10/01/2016 Comp Metabolic Wyk630 CL 102 mEq/L 10/01/2016 Comp Metabolic Rvw364 CO2 28.0 mEq/L 10/01/2016 Comp Metabolic Iie156 AN ION GAP 14 10/01/2016 Comp Metabolic Wyc938 GL UCOSE 93 mg/dL 10/01/2016 Comp Metabolic Zlm066 Cr eat 0.6 mg/dL 10/01/2016 Comp Metabolic Tos712 eG FR 109 ml/min/1.73m2 09/19 Comp Metabolic Ezp084 BUN 20 mg/dL 10/01/2016 Comp Metabolic Fln003 B/ C Ratio 31.7 Ratio 10/01/2016 Comp Metabolic Ygv112 CA LCIUM 9.8 mg/dL 10/01/2016 Comp Metabolic Jyk032 AL K PHOS 114 U/L 10/01/2016 Comp Metabolic Wsu966 T(SGOT) 11 U/L 10/01/2016 Comp Metabolic Jhn929 AL T(SGPT) 12 U/L 10/01/2016 Comp Metabolic Wao658 BI LI T 0.4 mg/dL 10/01/2016 Comp Metabolic Jfq314 AL BUMIN 4.3 g/dL 10/01/2016 Comp Metabolic Onw859 TP RO 7.2 g/dL 10/01/2016 Comp Metabolic Xmj578 GL OB 2.9 g/dL 10/01/2016 Comp Metabolic Ndg304 A/ G Ratio 1.5 Ratio 10/01/2016 Comp Metabolic Gas488 Os mo 280 mOsmo 10/01/2016 Free T4 Hyw587 FREE T4 1.37 ng/dL 10/01/2016 Lipid Ord30 [...] 64.5 % 10/01/2016 Cbc With Differential Ord2 MCV 88.4 fl 10/01/2016 Cbc With Differential Ord2 Lymph% 21.9 % 10/01/2016 Cbc With Differential Ord2 MCH 27.9 pg 10/01/2016 Cbc With Differential Ord2 [place]% 8.5 % 10/01/2016 Cbc With Differential Ord2 MCHC 31.6 pg 10/01/2016 Cbc With Differential Ord2 Eos% 4.5 % 10/01/2016 Cbc With Differential Ord2 PLT 405 K/ul 10/01/2016 Cbc With Differential Ord2 Baso% 0.6 % 10/01/2016 Cbc With Differential Ord2 RDW 14.9 % 10/01/2016 Cbc With Differential Ord2 Neut ABS# 4.97 K/ul 10/01/2016 Cbc With Differential Ord2 Lymph ABS# 1.69 K/ul 10/01/2016 Cbc With Differential Ord2 [place] ABS# 0.7 K/ul 10/01/2016 Cbc With Differential [...] 10.1 g/dl 04/06/2016 Cbc With Differential Ord2 HCT 33.5 % 04/06/2016 Cbc With Differential Ord2 Neut% 60.6 % 04/06/2016 Cbc With Differential Ord2 MCV 75.3 fl 04/06/2016 Cbc With Differential Ord2 Lymph% 24.4 % 04/06/2016 Cbc With Differential Ord2 MCH 22.7 pg 04/06/2016 Cbc With Differential Ord2 [place]% 8.2 % 04/06/2016 Cbc With Differential Ord2 MCHC 30.1 pg 04/06/2016 Cbc With Differential Ord2 Eos% 6.3 % 04/06/2016 Cbc With Differential Ord2 PLT 482 K/ul 04/06/2016 Cbc With Differential Ord2 Baso% 0.5 % 04/06/2016 Cbc With Differential Ord2 RDW 17.0 % 04/06/2016 Cbc With Differential Ord2 Neut ABS# 3.68 K/ul 04/06/2016 Cbc With Differential Ord2 Lymph ABS# 1.48 K/ul 04/06/2016 Cbc With Differential Ord2 [place] ABS# 0.5 K/ul 04/06/2016 Cbc With Differential Ord2 Eos ABS# 0.4 K/ul 04/06/2016 Cbc With Differential Ord2 Baso ABS# 0.0 K/ul 04/06/2016 Ferritin Ord22 FERRITIN 5.8 ng/mL 04/06/2016 Free T4 Yhl759 FREE T4 1.16 ng/dL 03/16/2016 %Hba1C Cjh290 % HbA1c 05752-8 7.0 % 03/16/2016 %Hba1C Dzz385 Gluc Ave 154 mg/dL 03/16/2016 Cbc With Differential Ord2 WBC 13.14 K/ul 03/16/2016 Cbc With Differential Ord2 RBC 4.61 M/ul 03/16/2016 Cbc With Differential Ord2 HGB 10.7 g/dl 03/16/2016 Cbc With Differential Ord2 HCT 35.4 % 03/16/2016 Cbc With Differential Ord2 Neut% 78.5 % 03/16/2016 Cbc With Differential Ord2 MCV 76.8 fl 03/16/2016 Cbc With Differential Ord2 Lymph% 13.3 % 03/16/2016 Cbc With Differential Ord2 MCH 23.2 pg 03/16/2016 Cbc With Differential Ord2 [place]% 4.8 % 03/16/2016 Cbc With Differential Ord2 MCHC 30.2 pg 03/16/2016 Cbc With Differential Ord2 Eos% 3.1 % 03/16/2016 Cbc With Differential Ord2 PLT 463 K/ul 03/16/2016 Cbc With Differential Ord2 Baso% 0.3 % 03/16/2016 Cbc With Differential Ord2 RDW 16.8 % 03/16/2016 Cbc With Differential Ord2 Neut ABS# 10.31 K/ul 03/16/2016 Cbc With Differential Ord2 Lymph ABS# 1.75 K/ul 03/16/2016 Cbc With Differential Ord2 [place] ABS# 0.6 K/ul 03/16/2016 Cbc With Differential Ord2 Eos ABS# 0.4 K/ul 03/16/2016 Cbc With Differential Ord2 Baso ABS# 0.0 K/ul 03/16/2016 Tsh Ord6 hTSH II 1.39 uIU/mL 03/16/2016 Tsh Ord6 hTSH II 10.28 uIU/mL 11/14/2015 Free T4 Ugd812 FREE T4 0.79 ng/dL 11/14/2015 Lipid Ord30 [...] 75.3 % 11/14/2015 Cbc With Differential Ord2 MCV 79.2 fl 11/14/2015 Cbc With Differential Ord2 Lymph% 14.5 % 11/14/2015 Cbc With Differential Ord2 MCH 24.4 pg 11/14/2015 Cbc With Differential Ord2 [place]% 6.6 % 11/14/2015 Cbc With Differential Ord2 MCHC 30.8 pg 11/14/2015 Cbc With Differential Ord2 Eos% 3.3 % 11/14/2015 Cbc With Differential Ord2 PLT 477 K/ul 11/14/2015 Cbc With Differential Ord2 Baso% 0.3 % 11/14/2015 Cbc With Differential Ord2 RDW 15.9 % 11/14/2015 Cbc With Differential Ord2 Neut ABS# 8.90 K/ul 11/14/2015 Cbc With Differential Ord2 Lymph ABS# 1.72 K/ul 11/14/2015 Cbc With Differential Ord2 [place] ABS# 0.8 K/ul 11/14/2015 Cbc With Differential Ord2 Eos ABS# 0.4 K/ul 11/14/2015 Cbc With Differential Ord2 Baso ABS# 0.0 K/ul 11/14/2015 Comp Metabolic Lap749 NA 136 mEq/L 11/14/2015 Comp Metabolic Wfd855 K 4.4 mEq/L 11/14/2015 Comp Metabolic Eih622 CL 101 mEq/L 11/14/2015 Comp Metabolic Jqw512 CO2 27.0 mEq/L 11/14/2015 Comp Metabolic Zht530 AN ION GAP 12 11/14/2015 Comp Metabolic Cbu977 GL UCOSE 107 mg/dL 11/14/2015 Comp Metabolic Rhh489 Cr eat 0.6 mg/dL 11/14/2015 Comp Metabolic Luv100 eG FR 125 ml/min/1.73m2 10/20 Comp Metabolic Auu270 BUN 14 mg/dL 11/14/2015 Comp Metabolic Sxc681 B/ C Ratio 25.0 Ratio 11/14/2015 Comp Metabolic Ckt482 CA LCIUM 9.6 mg/dL 11/14/2015 Comp Metabolic Goh226 AL K PHOS 104 U/L 11/14/2015 Comp Metabolic Rbk708 T(SGOT) 16 U/L 11/14/2015 Comp Metabolic Ljn358 AL T(SGPT) 14 U/L 11/14/2015 Comp Metabolic Mij763 BI LI T 0.3 mg/dL 11/14/2015 Comp Metabolic Zba455 AL BUMIN 4.0 g/dL 11/14/2015 Comp Metabolic Ipj881 TP RO 7.2 g/dL 11/14/2015 Comp Metabolic Vtl961 GL OB 3.2 g/dL 11/14/2015 Comp Metabolic Mbi531 A/ G Ratio 1.3 Ratio 11/14/2015 Comp Metabolic Cxk901 Os mo 273 mOsmo 11/14/2015 %Hba1C Ddn464 % HbA1c 94139-7 7.0 % 11/14/2015 %Hba1C Yyi773 Gluc Ave 154 mg/dL 11/14/2015 Free T4 Cmh342 FREE T4 0.49 ng/dL 08/02/2015 Tsh Ord6 hTSH II 44.41 uIU/mL 07/31/2015 %Hba1C Pkg525 % HbA1c 15151-9 6.7 % 07/31/2015 %Hba1C Xfg455 Gluc Ave 146 mg/dL 07/31/2015 Cbc With [...] Differential Ord2 RDW 14.9 % 03/13/2015 %Hba1C Tdn008 % HbA1c 47001-4 6.8 % 03/13/2015 %Hba1C Zyw182 Gluc Ave 148 mg/dL 03/13/2015 Tsh Ord6 hTSH II 0.95 uIU/mL 03/13/2015 Lipid Ord30 CHOL 146 mg/dL 03/13/2015 Lipid Ord30 HDL 40.0 mg/dl 03/13/2015 Lipid Ord30 TRIG 137 mg/dL 03/13/2015 Lipid Ord30 LDL 79 mg/dL 03/13/2015 Lipid Ord30 C/HDL 3.7 Ratio 03/13/2015 Comp Metabolic Avi925 NA 135 mEq/L 03/13/2015 Comp Metabolic Aoe289 K 4.5 mEq/L 03/13/2015 Comp Metabolic Qku102 CL 99 mEq/L 03/13/2015 Comp Metabolic Cjp349 CO2 29.0 mEq/L 03/13/2015 Comp Metabolic Bbm059 AN ION GAP 12 03/13/2015 Comp Metabolic Owt414 GL UCOSE 98 mg/dL 03/13/2015 Comp Metabolic Zvd201 Cr eat 0.7 mg/dL 03/13/2015 Comp Metabolic Fak653 eG FR 100 ml/min/1.73m2 02/20 Comp Metabolic Xid602 BUN 13 mg/dL 03/13/2015 Comp Metabolic Pjh267 B/ C Ratio 19.1 Ratio 03/13/2015 Comp Metabolic Yhq363 CA LCIUM 9.8 mg/dL 03/13/2015 Comp Metabolic Xws700 AL K PHOS 91 U/L 03/13/2015 Comp Metabolic Zhq088 T(SGOT) 10 U/L 03/13/2015 Comp Metabolic Qxs318 AL T(SGPT) 10 U/L 03/13/2015 Comp Metabolic Cwc816 BI LI T 0.4 mg/dL 03/13/2015 Comp Metabolic Pft019 AL BUMIN 4.1 g/dL 03/13/2015 Comp Metabolic Rxo905 TP RO 6.9 g/dL 03/13/2015 Comp Metabolic Ato726 GL OB 2.8 g/dL 03/13/2015 Comp Metabolic Amv103 A/ G Ratio 1.5 Ratio 03/13/2015 Comp Metabolic Ueo179 Os mo 270 mOsmo 03/13/2015 Free T4 Ztd914 FREE T4 1.25 ng/dL 03/13/2015 Review of Systems System Result Effective Dates Constitutional No recent illness 09/21/2018 Constitutional No chills 09/21/2018 Constitutional No diaphoresis 09/21/2018 Constitutional No fever 09/21/2018 Eyes No eye discharge Eyes No eye erythema 08/2018 Eyes No vision change Ears/Nose/Throat/Neck nasal allergies 09/21/2018 Ears/Nose/Throat/Neck No nasal discharge 09/21/2018 Cardiovascular No chest pain/pressure 09/21/2018 Cardiovascular No dyspnea 09/21/2018 Respiratory No cough 08/2018 Respiratory No dyspnea 0 09/21/2018 Gastrointestinal No abdominal pain 09/21/2018 Gastrointestinal No constipation 09/21/2018 Gastrointestinal No diarrhea 09/21/2018 Gastrointestinal No gastroesophageal reflu x 09/21/2018 Gastrointestinal No nausea 09/21/2018 Gastrointestinal No vomiting 09/21/2018 Neurologic No alteration of consciousness 09/21/2018 Neurologic No mental status change 09/21/2018 Dermatologic cyst 2018 Constitutional No recent illness 09/10/2017 Constitutional No chills 09/10/2017 Constitutional No diaphoresis 09/10/2017 Constitutional No fever 09/10/2017 Eyes No eye erythema Ears/Nose/Throat/Neck No nasal discharge 09/10/2017 Ears/Nose/Throat/Neck nasal allergies 09/10/2017 Cardiovascular No chest pain/pressure 09/10/2017 Cardiovascular No dyspnea 09/10/2017 Respiratory No cough Gastrointestinal No abdominal pain 09/10/2017 Gastrointestinal No constipation 09/10/2017 Gastrointestinal No diarrhea 09/10/2017 Gastrointestinal No vomiting 09/10/2017 Gastrointestinal No nausea 09/10/2017 Genitourinary/Nephrology No dysuria 09/10/2017 Genitourinary/Nephrology menstrual i rregularity 09/10/2017 Genitourinary/Nephrology menopausal symptoms 09/10/2017 Dermatologic No rash Neurologic No alteration of consciousness 09/10/2017 Eyes No eye discharge Eyes No eye erythema Eyes No vision change Gastrointestinal No gastroesophageal reflu x 09/10/2017 Neurologic No mental status change 09/10/2017 Constitutional No recent illness 10/13/2016 Constitutional No chills 10/13/2016 Constitutional No fever 10/13/2016 Eyes No eye discharge Eyes No eye erythema Eyes No vision change Cardiovascular No chest pain/pressure 10/13/2016 Cardiovascular No dyspnea 10/13/2016 Respiratory No dyspnea 0 10/13/2016 Gastrointestinal No abdominal pain 10/13/2016 Gastrointestinal No constipation 10/13/2016 Gastrointestinal No diarrhea 10/13/2016 Gastrointestinal No gastroesophageal reflu x 10/13/2016 Gastrointestinal No nausea 10/13/2016 Gastrointestinal No vomiting 10/13/2016 Neurologic No alteration of consciousness 10/13/2016 Constitutional No diaphoresis 10/13/2016 Ears/Nose/Throat/Neck nasal allergies 10/13/2016 Ears/Nose/Throat/Neck No nasal discharge 10/13/2016 Respiratory No cough Neurologic No mental status change 10/13/2016 Constitutional recent illness 01/14/2016 Constitutional No chills 01/14/2016 Constitutional No fever 01/14/2016 Constitutional No malaise 01/14/2016 Eyes No eye discharge Eyes No eye erythema Eyes No vision change Ears/Nose/Throat/Neck nasal allergies 01/14/2016 Ears/Nose/Throat/Neck nasal discharge 01/14/2016 Ears/Nose/Throat/Neck postnasal drip 01/14/2016 Ears/Nose/Throat/Neck sinus congestion 01/14/2016 Ears/Nose/Throat/Neck No sore throat 01/14/2016 Cardiovascular No chest pain/pressure 01/14/2016 Cardiovascular No dyspnea 01/14/2016 Respiratory productive sputum 01/14/2016 Respiratory cough 2015 Respiratory No dyspnea 0 01/14/2016 Gastrointestinal No nausea 01/14/2016 Gastrointestinal No vomiting 01/14/2016 Dermatologic No rash Dermatologic No sores Dermatologic No scar Neurologic No alteration of consciousness 01/14/2016 Ears/Nose/Throat/Neck No otalgia 01/14/2016 Respiratory chest congestion 01/14/2016 Gastrointestinal No abdominal pain 01/14/2016 Constitutional recent illness 07/31/2015 Constitutional No chills 07/31/2015 Constitutional No fatigue 07/31/2015 Constitutional No fever 07/31/2015 Constitutional No insomnia 07/31/2015 Constitutional No malaise 07/31/2015 Ears/Nose/Throat/Neck No dizziness 07/31/2015 Ears/Nose/Throat/Neck No headache 07/31/2015 Ears/Nose/Throat/Neck No hearing loss 07/31/2015 Ears/Nose/Throat/Neck nasal allergies 07/31/2015 Ears/Nose/Throat/Neck No sore throat 07/31/2015 Ears/Nose/Throat/Neck postnasal drip 07/31/2015 Ears/Nose/Throat/Neck sinus congestion 07/31/2015 Cardiovascular No chest pain/pressure 07/31/2015 Cardiovascular No dyspnea 07/31/2015 Cardiovascular No edema 07/31/2015 Cardiovascular No fatigue 07/31/2015 Cardiovascular No near-syncope/dizziness 07/31/2015 Respiratory No chest tightness 07/31/2015 Respiratory cough 2015 Respiratory No dyspnea 0 07/31/2015 Respiratory No pedal edema 07/31/2015 Gastrointestinal No abdominal pain 07/31/2015 Gastrointestinal No constipation 07/31/2015 Gastrointestinal No diarrhea 07/31/2015 Gastrointestinal No gastroesophageal reflu x 07/31/2015 Gastrointestinal No nausea 07/31/2015 Gastrointestinal No vomiting 07/31/2015 Genitourinary/Nephrology No dysuria 07/31/2015 Genitourinary/Nephrology No nocturia 07/31/2015 Genitourinary/Nephrology No urinary incontinence 07/31/2015 Dermatologic No rash 03/2016 Dermatologic No sores Dermatologic No scar 03/2016 Psychiatric No anxiety 0 07/31/2015 Psychiatric No depression 07/31/2015 Eyes No eye discharge Eyes No eye erythema 03/2016 Eyes No vision change Ears/Nose/Throat/Neck nasal discharge 07/31/2015 Respiratory productive sputum 07/31/2015 Neurologic No alteration of consciousness 07/31/2015 Constitutional No recent illness 04/04/2015 Constitutional No chills 04/04/2015 Constitutional No fatigue 04/04/2015 Constitutional No fever 04/04/2015 Constitutional No insomnia 04/04/2015 Constitutional No malaise 04/04/2015 Eyes No blindness 2014 Eyes No vision change Ears/Nose/Throat/Neck No dental pain 04/04/2015 Ears/Nose/Throat/Neck No dizziness 04/04/2015 Ears/Nose/Throat/Neck No dysphagia 04/04/2015 Ears/Nose/Throat/Neck No headache 04/04/2015 Ears/Nose/Throat/Neck No hearing loss 04/04/2015 Ears/Nose/Throat/Neck No nasal allergies 04/04/2015 Ears/Nose/Throat/Neck No sore throat 04/04/2015 Ears/Nose/Throat/Neck No postnasal drip 04/04/2015 Ears/Nose/Throat/Neck No sinus congestion 04/04/2015 Cardiovascular No chest pain/pressure 04/04/2015 Cardiovascular No dyspnea 04/04/2015 Cardiovascular No edema 04/04/2015 Cardiovascular No exercise intolerance 04/04/2015 Cardiovascular No fatigue 04/04/2015 Cardiovascular No near-syncope/dizziness 04/04/2015 Respiratory No chest tightness 04/04/2015 Respiratory No cough Respiratory No dyspnea 1 Respiratory No pedal edema 04/04/2015 Gastrointestinal No abdominal pain 04/04/2015 Gastrointestinal No constipation 04/04/2015 Gastrointestinal No diarrhea 04/04/2015 Gastrointestinal No gastroesophageal reflu x 04/04/2015 Gastrointestinal No nausea 04/04/2015 Gastrointestinal No vomiting 04/04/2015 Genitourinary/Nephrology No dysuria 04/04/2015 Genitourinary/Nephrology No nocturia 04/04/2015 Genitourinary/Nephrology No urinary incontinence 04/04/2015 Musculoskeletal stiffness 04/04/2015 Musculoskeletal No swelling 04/04/2015 Musculoskeletal arthralgia(s) 04/04/2015 Musculoskeletal joint complaint 04/04/2015 Musculoskeletal No muscle weakness 04/04/2015 Musculoskeletal No myalgias 04/04/2015 Dermatologic No rash Dermatologic No sores Dermatologic No scar Neurologic No dizziness 04/04/2015 Neurologic No headache 1 Neurologic No neck pain 04/04/2015 Neurologic No syncope Psychiatric No anxiety 1 Psychiatric No depression 04/04/2015 Constitutional No recent illness 03/13/2015 Constitutional No chills 03/13/2015 Constitutional No fatigue 03/13/2015 Constitutional No fever 03/13/2015 Constitutional No insomnia 03/13/2015 Constitutional No malaise 03/13/2015 Eyes No blindness 2014 Eyes No vision change Ears/Nose/Throat/Neck No dental pain 03/13/2015 Ears/Nose/Throat/Neck No dizziness 03/13/2015 Ears/Nose/Throat/Neck No dysphagia 03/13/2015 Ears/Nose/Throat/Neck No headache 03/13/2015 Ears/Nose/Throat/Neck No hearing loss 03/13/2015 Ears/Nose/Throat/Neck No nasal allergies 03/13/2015 Ears/Nose/Throat/Neck No sore throat 03/13/2015 Ears/Nose/Throat/Neck No postnasal drip 03/13/2015 Ears/Nose/Throat/Neck No sinus congestion 03/13/2015 Cardiovascular No chest pain/pressure 03/13/2015 Cardiovascular No dyspnea 03/13/2015 Cardiovascular No edema 03/13/2015 Cardiovascular No exercise intolerance 03/13/2015 Cardiovascular No fatigue 03/13/2015 Cardiovascular No near-syncope/dizziness 03/13/2015 Respiratory No chest tightness 03/13/2015 Respiratory No cough Respiratory No dyspnea 0 03/13/2015 Respiratory No pedal edema 03/13/2015 Gastrointestinal No abdominal pain 03/13/2015 Gastrointestinal No constipation 03/13/2015 Gastrointestinal No diarrhea 03/13/2015 Gastrointestinal No gastroesophageal reflu x 03/13/2015 Gastrointestinal No nausea 03/13/2015 Gastrointestinal No vomiting 03/13/2015 Genitourinary/Nephrology No dysuria 03/13/2015 Genitourinary/Nephrology No nocturia 03/13/2015 Genitourinary/Nephrology No urinary incontinence 03/13/2015 Musculoskeletal stiffness 03/13/2015 Musculoskeletal No swelling 03/13/2015 Musculoskeletal No muscle weakness 03/13/2015 Musculoskeletal No myalgias 03/13/2015 Dermatologic No rash Dermatologic No sores Dermatologic No scar Neurologic No dizziness 03/13/2015 Neurologic No headache 0 03/13/2015 Neurologic No neck pain 03/13/2015 Neurologic No syncope Psychiatric No anxiety 0 03/13/2015 Psychiatric No depression 03/13/2015 Musculoskeletal arthralgia(s) 03/13/2015 Musculoskeletal joint complaint 03/13/2015 Physical Exam Exam Name System Name It em Name Status Result Effective Dates Notes Full Exam - General 1994 Constitutional general appearance Overall: well developed 09/21/2018 None Full Exam - General 1994 Constitutional general appearance Overall: in no acute distress 09/21/2018 None Full Exam - General 1994 Constitutional general appearance Overall: well nourished 09/21/2018 None Full Exam - General 1994 Constitutional general appearance Hygiene/Attention to Grooming: good hygiene 09/21/2018 None Full Exam - General 1994 Eyes conjunctiva/eyelids Overall: conjunctiva clear 09/21/2018 None Full Exam - General 1994 Eyes conjunctiva/eyelids Overall: eyelids normal 09/21/2018 None Full Exam - General 1994 Ears/Nose/Throat otoscopic exam Overall: external auditory canals clear 09/21/2018 None Full Exam - General 1994 Ears/Nose/Throat otoscopic exam Overall: tympanic membranes clear 09/21/2018 None Full Exam - General 1994 Ears/Nose/Throat lips/teeth/gingiva Overall: benign lips 09/21/2018 None Full Exam - General 1994 Ears/Nose/Throat oral cavity/pharynx/larynx Overall: oral mucosa clear 09/21/2018 None Full Exam - General 1994 Ears/Nose/Throat oral cavity/pharynx/larynx Posterior Pharynx: clear post nasal drainage 09/21/2018 None Full Exam - General 1994 Respiratory auscultation Overall: breath sounds clear bilaterally 09/21/2018 None Full Exam - General 1994 Respiratory respiratory effort/rhythm Overall: no retractions 09/21/2018 None Full Exam - General 1994 Respiratory respiratory effort/rhythm Overall: normal rate 09/21/2018 None Full Exam - General 1994 Cardiovascular extremities Overall: no clubbing 09/21/2018 None Full Exam - General 1994 Cardiovascular auscultation of heart Overall: regular rate 09/21/2018 None Full Exam - General 1994 Cardiovascular auscultation of heart Overall: normal heart sounds 09/21/2018 None Full Exam - General 1994 Lymphatic neck nodes Overall: anterior cervical chain benign 09/21/2018 None Full Exam - General 1994 Lymphatic neck nodes Overall: posterior cervical chain benign 09/21/2018 None Full Exam - General 1994 Musculoskeletal spine, ribs and pelvis Overall: good posture 09/21/2018 None Full Exam - General 1994 Musculoskeletal head and neck Overall: head atraumatic 09/21/2018 None Full Exam - General 1994 Neurologic cranial nerves Overall: crainial nerves 2 - 12 grossly intact 09/21/2018 None Full Exam - General 1994 Psychiatric orientation/consciousness Overall: oriented to person, place and time 09/21/2018 None Full Exam - General 1994 Psychiatric mood and affect Overall: normal mood and affect 09/21/2018 None Full Exam - General 1994 Integument inspection of skin Location: shoulder 09/21/2018 large open comedo noted t o right posterior shoulder Full Exam - General 1994 Constitutional general appearance Overall: well developed 09/10/2017 None Full Exam - General 1994 Constitutional general appearance Overall: in no acute distress 09/10/2017 None Full Exam - General 1994 Constitutional general appearance Overall: well nourished 09/10/2017 None Full Exam - General 1994 Constitutional general appearance Hygiene/Attention to Grooming: good hygiene 09/10/2017 None Full Exam - General 1994 Eyes conjunctiva/eyelids Overall: conjunctiva clear 09/10/2017 None Full Exam - General 1994 Eyes conjunctiva/eyelids Overall: eyelids normal 09/10/2017 None Full Exam - General 1994 Ears/Nose/Throat otoscopic exam Overall: external auditory canals clear 09/10/2017 None Full Exam - General 1994 Ears/Nose/Throat otoscopic exam Overall: tympanic membranes clear 09/10/2017 None Full Exam - General 1994 Ears/Nose/Throat lips/teeth/gingiva Overall: benign lips 09/10/2017 None Full Exam - General 1994 Ears/Nose/Throat oral cavity/pharynx/larynx Overall: oral mucosa clear 09/10/2017 None Full Exam - General 1994 Ears/Nose/Throat oral cavity/pharynx/larynx Posterior Pharynx: clear post nasal drainage 09/10/2017 None Full Exam - General 1994 Respiratory auscultation Overall: breath sounds clear bilaterally 09/10/2017 None Full Exam - General 1994 Respiratory respiratory effort/rhythm Overall: no retractions 09/10/2017 None Full Exam - General 1994 Respiratory respiratory effort/rhythm Overall: normal rate 09/10/2017 None Full Exam - General 1994 Cardiovascular extremities Overall: no clubbing 09/10/2017 None Full Exam - General 1994 Cardiovascular auscultation of heart Overall: regular rate 09/10/2017 None Full Exam - General 1994 Cardiovascular auscultation of heart Overall: normal heart sounds 09/10/2017 None Full Exam - General 1994 Abdomen abdominal exam Overall: no tenderness 09/10/2017 None Full Exam - General 1994 Abdomen abdominal exam Overall: normal bowel sounds 09/10/2017 None Full Exam - General 1994 Lymphatic neck nodes Overall: anterior cervical chain benign 09/10/2017 None Full Exam - General 1994 Lymphatic neck nodes Overall: posterior cervical chain benign 09/10/2017 None Full Exam - General 1994 Musculoskeletal spine, ribs and pelvis Overall: good posture 09/10/2017 None Full Exam - General 1994 Musculoskeletal head and neck Overall: head atraumatic 09/10/2017 None Full Exam - General 1994 Neurologic cranial nerves Overall: crainial nerves 2 - 12 grossly intact 09/10/2017 None Full Exam - General 1994 Psychiatric orientation/consciousness Overall: oriented to person, place and time 09/10/2017 None Full Exam - General 1994 Psychiatric mood and affect Overall: normal mood and affect 09/10/2017 None Full Exam - General 1994 Eyes conjunctiva/eyelids Overall: cornea clear 09/10/2017 None Full Exam - General 1994 Respiratory auscultation Diffuse: diminished 09/10/2017 None Full Exam - General 1994 Constitutional general appearance Hygiene/Attention to Grooming: good hygiene 10/13/2016 None Full Exam - General 1994 Eyes conjunctiva/eyelids Overall: conjunctiva clear 10/13/2016 None Full Exam - General 1994 Eyes conjunctiva/eyelids Overall: eyelids normal 10/13/2016 None Full Exam [...] None Full Exam - General 1994 Eyes conjunctiva/eyelids Overall: conjunctiva clear 01/14/2016 None Full Exam - General 1994 Eyes conjunctiva/eyelids Overall: cornea clear 01/14/2016 None Full Exam - General 1994 Eyes conjunctiva/eyelids Overall: eyelids normal 01/14/2016 None Full Exam - General 1994 Eyes pupils and irises Overall: pupils equal, round, reactive to light and accomodation 01/14/2016 None Full Exam - General 1994 Ears/Nose/Throat otoscopic exam Overall: external auditory canals clear 01/14/2016 None Full Exam - General 1994 Ears/Nose/Throat otoscopic exam Tympanic membrane: air-fluid level 01/14/2016 None Full Exam - General [...] None Full Exam - General 1994 Eyes conjunctiva/eyelids Overall: conjunctiva clear 07/31/2015 None Full Exam - General 1994 Eyes conjunctiva/eyelids Overall: cornea clear 07/31/2015 None Full Exam - General 1994 Eyes conjunctiva/eyelids Overall: eyelids normal 07/31/2015 None Full Exam [...] General 1994 Ears/Nose/Throat otoscopic exam Tympanic membrane: air-fluid level 07/31/2015 None Full Exam - General [...] None Full Exam - General 1994 Eyes conjunctiva/eyelids Overall: conjunctiva clear 03/13/2015 None Full Exam - General 1994 Eyes conjunctiva/eyelids Overall: cornea clear 03/13/2015 None Full Exam - General 1994 Eyes conjunctiva/eyelids Overall: eyelids normal 03/13/2015 None Full Exam [...] posterior surface of left achilles tendon Procedures Procedure Codes Date IIV4 VACC NO PRSV 0. 5 ML IM CPT-4: 16678 03/09/2019 ADMIN INFLUENZA VIRU S VAC CPT-4: G0008 03/09/2019 IIV4 VACC NO PRSV 0. 5 ML IM CPT-4: 14272 03/09/2019 THER/PROPH/DIAG INJ SC/IM CPT-4: 65958 03/09/2019 VITAMIN B12 INJECTION CPT-4: J3420 03/09/2019 THER/PROPH/DIAG INJ SC/IM CPT-4: 10520 02/01/2019 VITAMIN B12 INJECTION CPT-4: J3420 02/01/2019 THER/PROPH/DIAG INJ SC/IM CPT-4: 71924 01/03/2019 VITAMIN B12 INJECTION CPT-4: J3420 01/03/2019 THER/PROPH/DIAG INJ SC/IM CPT-4: 21454 09/13/2018 VITAMIN B12 INJECTION CPT-4: J3420 09/13/2018 THER/PROPH/DIAG INJ SC/IM CPT-4: 84696 08/11/2018 VITAMIN B12 INJECTION CPT-4: J3420 08/11/2018 THER/PROPH/DIAG INJ SC/IM CPT-4: 21326 06/29/2018 THER/PROPH/DIAG INJ SC/IM CPT-4: 29487 03/23/2018 VITAMIN B12 INJECTION CPT-4: J3420 03/23/2018 THER/PROPH/DIAG INJ SC/IM CPT-4: 76969 02/07/2018 VITAMIN B12 INJECTION CPT-4: J3420 02/07/2018 THER/PROPH/DIAG INJ SC/IM CPT-4: 46027 01/13/2018 VITAMIN B12 INJECTION CPT-4: J3420 01/13/2018 VITAMIN B12 INJECTION CPT-4: J3420 12/06/2017 THER/PROPH/DIAG INJ SC/IM CPT-4: 82098 12/06/2017 THER/PROPH/DIAG INJ SC/IM CPT-4: 67259 11/01/2017 VITAMIN B12 INJECTION CPT-4: J3420 11/01/2017 THER/PROPH/DIAG INJ SC/IM CPT-4: 75720 09/28/2017 VITAMIN B12 INJECTION CPT-4: J3420 09/28/2017 Vital Signs Date Vital 09/21/2018 Blood Pressure 1: 122/74 Code: 8480-6 BMI: 45.5 Code: 74891-9 Heart Rate 1: 79 bpm Height: 5'3" SpO2: 98% Temperature: 36.9 (C ) / 98.5 (F) Weight: 257 lbs 11/01/2017 Heigh t: 5'3" 09/10/2017 Blood Pressure 1: 136/70 Code: 8480-6 BMI: 44.6 Code: 58804-9 Heart Rate 1: 91 bpm Height: 5'3" SpO2: 96% Weight: 252 lbs 10/13/2016 Blood Pressure 1: 134/82 Code: 8480-6 BMI: 43.6 Code: 46246-5 Heart Rate 1: 97 bpm Height: 5'3" SpO2: 97% Weight: 246 lbs 01/14/2016 Blood Pressure 1: 132/78 Code: 8480-6 BMI: 45.7 Code: 16009-0 Heart Rate 1: 90 bpm Height: 5'3" SpO2: 98% Weight: 258 lbs 07/31/2015 Blood Pressure 1: 142/80 Code: 8480-6 BMI: 45.7 Code: 17275-2 Heart Rate 1: 78 bpm Height: 5'3" SpO2: 96% Weight: 258 lbs 04/04/2015 Blood Pressure 1: 130/82 Code: 8480-6 BMI: 44.9 Code: 14569-7 Heart Rate 1: 90 bpm Height: 5'3" SpO2: 96% Weight: 253 lbs 5 oz 03/13/2015 Blood Pressure 1: 140/86 Code: 8480-6 BMI: 45.2 Code: 09315-9 Heart Rate 1: 87 bpm Height: 5'3" SpO2: 93% Weight: 255 lbs Functional Status No Functional Status data History of Present Illness Symptom Name Status Resu lt Effective Date Notes Location at the level of the thyroid 09/21/2018 None Quality chronic 09/21/2018 None Onset and Resolution o ngoing 09/21/2018 None Severity mild with sub clinical signs 09/21/2018 None Alleviating Factors me dication 09/21/2018 None Pertinent Findings dry skin 09/21/2018 None Quality non-insulin de pendent 09/21/2018 None Alleviating Factors me dication 09/21/2018 -metformin Exacerbating Factors d iet 09/21/2018 None Pertinent Findings Den ies dizziness 09/21/2018 None Pertinent Findings dys pnea 09/21/2018 -"sometimes" Pertinent Findings Den ies nausea 09/21/2018 None Location on the back 09/21/2018 None Quality constant 09/21/2018 None Quality non-tender 09/21/2018 None Onset and Resolution o ngoing 09/21/2018 None hypothyroid Location at the level of the thyroid 09/10/2017 None hypothyroid 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 09/10/2017 None hypothyroid Onset and Resolution ongoing 09/10/2017 None hypothyroid Severity mil d with subclinical signs 09/10/2017 None hypothyroid Alleviating Factors medication 09/10/2017 None hypothyroid Pertinent Findings dry skin 09/10/2017 None diabetes mellitus Quality non-insulin dependent 09/10/2017 None diabetes mellitus Alleviating Factors medication 09/10/2017 -metformin diabetes mellitus Exacerbating Factors diet 09/10/2017 None diabetes mellitus Pertinent Findings Denies dizziness 09/10/2017 None diabetes mellitus Pertinent Findings dyspnea 09/10/2017 -"sometimes" diabetes mellitus Pertinent Findings Denies nausea 09/10/2017 None menstrual irregularity Quality intermittent 09/10/2017 None menstrual irregularity Onset and Resolutio n sudden in onset 09/10/2017 None menstrual irregularity Onset of Symptom 1 months ago 09/10/2017 None hypothyroid Location at the level of the thyroid 10/13/2016 None hypothyroid 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 10/13/2016 None hypothyroid Onset and Resolution ongoing 10/13/2016 None hypothyroid Severity mil d with subclinical signs 10/13/2016 None hypothyroid Alleviating [...] nausea 10/13/2016 None cough Location in the th roat 01/14/2016 None cough Quality constant 01/14/2016 None cough Quality dry 01/14/2016 None cough Quality hacking 01/14/2016 None cough [...] of the thyroid 07/31/2015 None hypothyroid 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 07/31/2015 None hypothyroid Onset and Resolution ongoing 07/31/2015 None hypothyroid Severity mil d with subclinical signs 07/31/2015 None hypothyroid Alleviating Factors medication 07/31/2015 None diabetes mellitus Quality non-insulin dependent 07/31/2015 None diabetes mellitus Test results Pt checking blood glucose at home, see scanned readings 07/31/2015 See booklet diabetes mellitus Glucose monitoring daily 07/31/2015 None diabetes mellitus Alleviating Factors medication 07/31/2015 -metformin diabetes mellitus Exacerbating Factors diet 07/31/2015 None diabetes mellitus Pertinent Findings Denies dizziness 07/31/2015 None diabetes mellitus Pertinent Findings dyspnea 07/31/2015 -"sometimes" diabetes mellitus Pertinent Findings Denies nausea 07/31/2015 None cough Quality acute 07/31/2015 None cough Quality dry 07/31/2015 None cough Quality intermitte nt 07/31/2015 None cough Onset and Resolution sudden [...] ago 04/04/2015 None ankle pain Location on t he left 04/04/2015 None ankle pain Location achi lles tendon 04/04/2015 None ankle pain Onset and Resolution resolving 04/04/2015 None ankle pain Quality dull pain 04/04/2015 None ankle pain Severity mild 04/04/2015 None hypothyroid Location at the level of the thyroid 03/13/2015 None hypothyroid 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 03/13/2015 None hypothyroid Onset and Resolution ongoing 03/13/2015 None hypothyroid Severity mil d with subclinical signs 03/13/2015 None hypothyroid Triggers no known associated factors 03/13/2015 None hypothyroid Alleviating Factors medication 03/13/2015 None ankle pain Location on t he left 03/13/2015 None ankle pain Quality chron ic 03/13/2015 None ankle pain Severity mode rate 03/13/2015 None ankle pain Alleviating Factors rest 03/13/2015 None ankle pain Exacerbating Factors weight bearing 03/13/2015 None ankle pain Exacerbating Factors ankle motion 03/13/2015 None Advance Directives No Advance Directive data Encounters Encounter Performer Loca tion Codes Date 23255 EST. PATIENT, LEVEL IV Diagnosis: Acne vulgaris[ICD10: L70.0] Diagnosis: Type 2 diabetes mellitus with hyperglycemia[ICD10: E11.65] Diagnosis: Other specified hypothyroidism[ICD10: E03.8] Anyi Cano MD, [facility] CPT-4: 14399 09/21/2018 84883 EST. PATIENT, LEVEL IV Diagnosis: Excessive and frequent menstruation with irregular cycle[ICD10: N92.1] Diagnosis: Type 2 diabetes mellitus with hyperglycemia[ICD10: E11.65] Diagnosis: Other specified hypothyroidism[ICD10: E03.8] Diagnosis: Other halfway (current) drug therapy[ICD10: Z79.899] Anyi Cano MD, [facility] CPT-4: 63893 09/10/2017 99266 EST. 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 PATIENT, LEVEL IV Diagnosis: Other acute sinusitis[ICD10: J01.80] Diagnosis: Other allergic rhinitis[ICD10: J30.89] Diagnosis: Wheezing[ICD10: R06.2] Anyi Cano MD, [facility] CPT-4: 10242 01/14/2016 44044 EST. 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 P ATIENT, LEVEL III Diagnosis: Achilles tendinitis, left leg[ICD10: M76.62] Beba Cano MD, C CPT-4: 36714 04/04/2015 ([id number]) OFFICE VISI T, NEW - LEVEL 4 Diagnosis: HYPERLIPIDEMIA[ICD9: 272.4] Diagnosis: DIABETES TYPE II[ICD9: 250.00] Diagnosis: HYPOTHYROIDISM[ICD9: 244.9] Diagnosis: ACHILLES TENDINITIS[ICD9: 726.71] [facility] CPT-4: 07851 03/13/2015 Plan of Care Planned Activity Notes C odes Status Date Patient Education: Patient Medication Summary Completed 03/09/2019 Appointment: Injection 02/01/2019 Patient Education: Patient Medication Summary Completed 02/01/2019 Appointment: Injection 01/03/2019 Patient Education: Patient Medication Summary Completed 01/03/2019 Visit Plan: Open Comedo - debris re moved - discussed with pt and family for care and prevention - pt is to notify clinic if symptoms return or with any changes, questions, or concerns. Diabetes Mellitus - controlled - per recent [...] months based on previous levels of control. 09/21/2018 Appointment: Any[facility] Vel[facility]quez [facility]el: [phone] [facility] (30 min) [facility] 09/21/2018 Patient Education: Patient Medication Summary Completed 09/21/2018 Patient Education: Patient Medication Summary Completed 09/19/2018 Appointment: Injection 09/13/2018 Patient Education: Patient Medication Summary Completed 09/13/2018 Appointment: Injection 08/11/2018 Patient Education: Patient Medication Summary Completed 08/11/2018 Appointment: Injection 06/29/2018 Patient Education: Patient Medication Summary Completed 06/29/2018 Patient Education: Patient Medication Summary Completed 04/05/2018 Care Plan: SCRE[facility]MOGR[employer]HY[facility]ITAL [facility]INC : 72854-6 Pending 04/05/2018 Appointment: Injection 03/23/2018 Patient Education: Patient Medication Summary Completed 03/23/2018 Appointment: Injection 02/07/2018 Patient Education: Patient Medication Summary Completed 02/07/2018 Appointment: Injection 01/13/2018 Patient Education: Patient Medication Summary Completed 01/13/2018 Patient Education: Patient Medication Summary Completed 01/12/2018 Care Plan: [facility] 88574-5 Pending 01/12/2018 Appointment: Injection 12/06/2017 Patient Education: Patient Medication Summary Completed 12/06/2017 Appointment: Injection 11/01/2017 Patient Education: Patient Medication Summary Completed 11/01/2017 Appointment: Injection 09/28/2017 Patient Education: Patient Medication Summary Completed 09/28/2017 Patient Education: Patient Medication Summary Completed 09/27/2017 Patient Education: Patient Medication Summary Completed 09/23/2017 Patient Education: Patient Medication Summary Completed 09/14/2017 Care Plan: Iron Pending 09/14/2017 Care Plan: Referral Order SNOMED-CT : [id number] Pending 09/13/2017 Visit Plan: Diabetes Mellitus - I albert blackwell recommended for the patient to have follow up labs prior to the next office visit. The patient has been instructed to continue with current medications as previously directed, continue with regular FSBS monitoring to assure continued control of diabetes. Pt to call for any acute concerns, complaints, or if the blood glucose readings are starting to become less controlled. I have recommended for the patient to follow more strictly to the diabetic diet as discussed in clinic to allow for greater blood glucose control. Hypothyroidism - pt with chronic hypothyroidism, continue with current medication, will monitor pt to signs or symptoms of lack of adequate supplementation. Pt is to continue with current dose of medication unless directed otherwise. Check labs at regular intervals wither q 3 months or q 6 months based on previous levels of control. Vaginal bleeding and irregular periods - pt has never had a pelvic or pap done - will refer to [facility] due to pt symptoms and difficulty for exam - pt is to notify clinic with any changes or concerns. 09/10/2017 Appointment: Anyi Velázquez [facility]Ptel: [phone] [facility] [place] (15 min) Moderate 09/10/2017 Patient Education: Patient Medication Summary Completed 09/10/2017 Referral: Arvind Briseno [address] [facility] Referral Completed 10/27/2016 Referral: Arvind Briseno [address] [facility] Referral Initiated 10/27/2016 Visit Plan: Umbilical hernia - will refer to Dr. Briseno for evaluation Diabetes Mellitus - controlled - per recent FSBS reports. I have recommended for the patient to have follow up labs prior to the next office visi t. The patient has been instructed to continue [...] of control. 10/13/2016 Appointment: Anyi Velázquez WPtel: [phone] [facility] (15 min) Moderate 10/13/2016 Patient Education: Patient Medication Summary Completed 10/13/2016 Care Plan: Referral Order SNOMED-CT : [id number] Pending 10/13/2016 Visit Plan: Sinusitis - Pt has acut e infection - pain in face, maxillary region, Pt informed to use decongestant, RX given to patient, sinus rinses also recommended. Call if symptoms do not show improvement. Allerg ies - chronic - recommended pt to use [...] the nasal steroid allergy spray. 01/14/2016 Appointment: Melissa Newman [facility]el: [phone] [facility] [phone] (30 min) Complex 01/14/2016 Patient Education: Patient Medication Summary Completed 01/14/2016 Patient Education: Obesity Completed 01/14/2016 Patient Education: Patient Medication Summary Completed 11/04/2015 Appointment: (30 min) Complex 08/02/2015 Patient Education: Patient Medication Summary Completed 08/02/2015 Visit Plan: Sinusitis - Pt has acut e infection - pain in face, maxillary region, Pt informed to use decongestant, RX given to patient, sinus rinses also recommended. Call if symptoms do not show improvement. Allerg ies - chronic - recommended pt to use [...] Completed 07/31/2015 Visit Plan: Achilles Tendonitis - R ecommended pt to wear boot when not at work, pt released for full duty at work. Continue with naproxen. Call if not improving. 04/04/2015 Appointment: Beba Cano WPtel: [facility] (15 min) Moderate 04/04/2015 Patient Education: Patient Medication Summary Completed 04/04/2015 Visit Plan: Hypothyroidism - pt wit h chronic hypothyroidism, continue with current medication, will [...] as previously directed, continue with regular FSBS mon itoring to assure continued control of diabetes. Pt [...] that appt. 03/13/2015 Appointment: Beba Cano WPtel: [address] [place] [address] [place] ([place]) New Patient 03/13/2015 Patient Education: Patient Medication Summary Completed 03/13/2015 Patient Education: Hypertension Completed 03/13/2015 Patient Education: Patient Medication Summary Completed 10/24/2014 Referral: Katia Hunter WPtel: [address] [place] [address] they will call pt to schedule appt Initiated Referral: Katia Hunter WPtel: [address] [place] [address] Referral Initiated Referral: Arvind Briseno [address] [place] [address] Referral Initiated Instructions Comment . Sinusitis - [...] spray in the nasal steroid allergy spray. walk for 30 minutes 3-5 times a week, watch your portions on what you eat . Open Comedo - debris removed - discuss ed with pt and family for care and prevention - pt is to notify clinic if symptoms return or with any changes, questions, or concerns. Diabetes Mellitus - controlled - per recent [...] based on previous levels of control. . Diabetes Mellitus - I have recommended for the patient to have follow up labs prior to the next office visit. The patient has been instructed to continue with current medications as previously directed, continue with regular FSBS monitoring to assure continued control of diabetes. Pt to call for any acute concerns, complaints, or if the blood glucose readings are starting to become less controlled. I have recommended for the patient to follow more strictly to the diabetic diet as discussed in clinic to allow for greater blood glucose control. Hypothyroidism - pt with chronic hypothyroidism, continue with current medication, will monitor pt to signs or symptoms of lack of adequate supplementation. Pt is to continue with current dose of medication unless directed otherwise. Check labs at regular intervals wither q 3 months or q 6 months based on previous levels of control. Vaginal bleeding and irregular periods - pt has never had a pelvic or pap done - will refer to [facility] due to pt symptoms and difficulty for exam - pt is to notify clinic with any changes or concerns. . Umbilical hernia - will refer to [...] previous levels of control. Zyrtec or generic ov er the counter in the mornings allergy medication and nasal spray daily Flonase or generic - If using nasal spray, instructions as follows: Nasal spray- use twice daily, one spray per nostril twice daily, after 30 minutes, rinse out nose with saline spray.. Use opposite hand per nostril to spray in the nasal steroid allergy spray. . Sinusitis - Pt has acute infection - p ain in face, maxillary region, Pt informed to [...] previous levels of control. . Hypothyroidism - p t with chronic hypothyroidism, continue with current medication, [...] to work at that appt. . Achilles Tendoniti s - Recommended pt to wear boot when not at work, pt released for full duty at work. Continue with naproxen. Call if not improving.
--- OUTSIDE RECORDS SUMMARY | 2020-01-06 14:36 | XMS REPORT | CCD ---
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 Name Role Phone PP Unavailable CCM Unavailable Summary Purpose Interface Exchange Insurance Providers Payer name Policy type / Coverage type Covered alliance party ID Effective Begin Date Effective End Date WPS Medicare Part B Medicare Part B [id number] Unknown [employer] Better Health in [facility] Part B [id number] Unk nown Family history Father Diagnosis Age [...] employed [employer] 04/04/[address]: 089796383 Never smoker 04/04/[address]: 792895042 Never drinks alcohol 04/04/2015 Has the patient ever used illegal drugs? Unknown Has never used illegal drugs 015 On Disability Unknown Yes 04/04/2015 Allergies, Adverse Reactions, Alerts Substance Reaction Codes Entered Date Inactivated Date Status * NO KNOWN DRUG JANINA RGIES Unknown 03/13/2015 No Inactive Date Active Past Medical History Illness Codes Condition Status Onset Date Resolved Date Other vitamin B12 de ficiency anemias ICD-9: 281.1 ICD-10: D51.8 Active 09/28/2017 Unknown Acne vulgaris ICD-9: 706.1 ICD-10: L70.0 Active 09/21/2018 Unknown Other longterm (cur rent) drug therapy ICD-9: V58.69 ICD-10: [...] Condition Codes Effectiv e Dates Condition Status Other vitamin B12 de ficiency anemias ICD-9: 281.1 ICD-10: D51.8 09/28/2017 Active Acne vulgaris ICD-9: 706.1 ICD-10: L70.0 09/21/2018 Active Other longterm (cur rent) drug therapy ICD-9: V58.69 ICD-10: [...] Date Stop Date Sta tus Fill Instructions Tamiflu 75 mg capsule RxNorm: 274642 1 Capsule(s) PO daily 03/09/2019 03/18/2019 Active Tamiflu 75 mg capsule RxNorm: 402541 1 Capsule(s) PO daily 03/09/2019 03/08/2019 Inactive cyanocobalamin (vit B-12) 1,000 mcg/mL injection solution RxNorm: 474554 Milliliter(s) Inj 02/01/2019 02/01/2019 Inactive cyanocobalamin (vit B-12) 1,000 mcg/mL injection solution RxNorm: 827873 Milliliter(s) Inj 01/03/2019 01/03/2019 Inactive Lipitor 40 mg tablet RxNorm: 394073 TAKE 1 TABLET BY MOUTH DAILY 12/13/2018 12/07/2019 Active Generic For:LIPITOR 40MG 12/13/2018 9:1 7:44 AM naproxen 500 mg tablet RxNorm: 137879 TAKE 1 TABLET BY MOUTH TWICE DAILY 11/15/2018 05/13/2019 Ac tive Generic For:NAPROSYN 500MG 11/15/2018 1 1:09:17 AM N O T I C E Last quantity doesn't match original quantity Farxiga 10 mg tablet RxNorm: 3942515 1 Tablet(s) PO daily 09/21/2018 09/20/[address] of invokana Farxiga 10 mg tablet RxNorm: 0638535 1 Tablet(s) PO daily 09/21/2018 01/18/[address] of invokana cyanocobalamin (vit B-12) 1,000 mcg/mL injection solution RxNorm: 615099 Milliliter(s) Inj 09/13/2018 09/13/2018 Inactive cyanocobalamin (vit B-12) 1,000 mcg/mL injection solution RxNorm: 197444 Milliliter(s) Inj 08/11/2018 08/11/2018 Inactive naproxen 500 mg tablet RxNorm: 307703 TAKE 1 TABLET BY MOUTH TWICE DAILY 08/09/2018 11/06/2018 In active Generic For:NAPROSYN 500MG 08/09/2018 1 1:14:27 AM N O T I C E Last quantity doesn't match original quantity levothyroxine 200 mc g tablet RxNorm: 659776 1 Tablet(s) PO daily to take with the 50mcg daily to equal 250mcg daily 07/19/2018 04/14/2019 Active cyanocobalamin (vit B-12) 1,000 mcg/mL injection solution RxNorm: 609457 Milliliter(s) Inj 06/29/2018 06/29/2018 Inactive naproxen 500 mg tablet RxNorm: 724578 TAKE 1 TABLET BY MOUTH TWICE DAILY 05/19/2018 08/08/2018 In active Generic For:NAPROSYN 500MG 05/19/2018 1 0:56:16 AM N O T I C E Last quantity doesn't match original quantity Kenalog 40 mg/mL debora pension for injection RxNorm: 8210075 Milliliter(s) Inj 03/23/2018 03/23/2018 In active levothyroxine 50 mcg tablet RxNorm: 092582 TAKE 1 TABLET BY MOUT H ONCE DAILY WITH 200MCG (250MCG TOTAL) 03/11/2018 06/08/2018 Inactive Generic For:SYNTHROID 50MCG TAB 03/11/2018 9:09:32 AM naproxen 500 mg tablet RxNorm: 279406 TAKE 1 TABLET BY MOUTH TWICE DAILY 02/25/2018 05/18/2018 In active Generic For:NAPROSYN 500MG 02/25/2018 1 2:39:53 PM N O T I C E Last quantity doesn't match original quantity cyanocobalamin (vit B-12) 1,000 mcg/mL injection solution RxNorm: 409843 Milliliter(s) Inj 02/07/2018 02/07/2018 Inactive metformin 1,000 mg t ablet RxNorm: 541888 TAKE 1 TABLET BY MOUT H TWICE A DAY 01/19/2018 01/13/2019 In active Generic For:*GLUCOPHAGE 1000MG 01/20/20 10:20:50 AM cyanocobalamin (vit B-12) 1,000 mcg/mL injection solution RxNorm: 834943 Milliliter(s) Inj 01/13/2018 01/13/2018 Inactive cyanocobalamin (vit B-12) 1,000 mcg/mL injection solution RxNorm: 325422 Milliliter(s) Inj 12/06/2017 12/06/2017 Inactive Invokana 300 mg tablet RxNorm: 8665358 TAKE 1 TABLET BY MOUTH DAILY 11/08/2017 09/20/2018 In active 11/05/2017 5:10:44 PM naproxen 500 mg tablet RxNorm: 390751 TAKE 1 TABLET BY MOUTH TWICE DAILY 11/08/2017 02/05/2018 In active Generic For:NAPROSYN 500MG 11/08/2017 9 :14:56 AM N O T I C E Last quantity doesn't match original quantity Lipitor 40 mg tablet RxNorm: 133666 TAKE 1 TABLET BY MOUTH DAILY 11/08/2017 11/02/2018 Inactive Generic For:LIPITOR 40MG 11/05/2017 5:1 0:24 PM levothyroxine 50 mcg tablet RxNorm: 010382 1 Tablet(s) PO daily to take with the 200mcg daily to equal 250mcg daily 11/08/2017 02/05/2018 Inactive cyanocobalamin (vit B-12) 1,000 mcg/mL injection solution RxNorm: 788937 1 Milliliter(s) Inj 11/01/2017 11/01/2017 Inactive cyanocobalamin (vit B-12) 1,000 mcg/mL injection solution RxNorm: 730765 1 Milliliter(s) Inj 09/28/2017 09/28/2017 Inactive levothyroxine 200 mc g tablet RxNorm: 515425 1 Tablet(s) PO daily to take with the 50mcg daily to equal 250mcg daily 09/14/2017 06/10/2018 Inactive levothyroxine 50 mcg tablet RxNorm: 657587 1 Tablet(s) PO daily to take with the 200mcg daily to equal 250mcg daily 09/14/2017 11/07/2017 Inactive naproxen 500 mg tablet RxNorm: 768624 TAKE 1 TABLET BY MOUTH TWICE DAILY 08/05/2017 11/02/2017 In active Generic For:NAPROSYN 500MG 08/05/2017 9 :04:47 AM N O T I C E Last quantity doesn't match original quantity naproxen 500 mg tablet RxNorm: 135206 TAKE 1 TABLET BY MOUTH TWICE DAILY 04/19/2017 08/04/2017 In active Generic For:NAPROSYN 500MG 04/19/2017 1 :49:28 PM Lipitor 40 mg tablet RxNorm: 234016 TAKE 1 TABLET BY MOUTH DAILY 03/22/2017 11/07/2017 Inactive Generic For:LIPITOR 40MG 03/20/2017 9:0 5:49 AM levothyroxine 25 mcg tablet RxNorm: 321912 1 Tablet(s) PO daily to take with her 200mcg to equal 225 mcg daily 03/22/2017 04/08/2017 Inactive Invokana 300 mg tablet RxNorm: 3909775 TAKE 1 TABLET BY MOUTH DAILY 12/21/2016 09/16/2017 In active 12/21/2016 9:03:03 AM levothyroxine 200 mc g tablet RxNorm: 966721 1 Tablet(s) PO daily 12/21/2016 09/13/2017 Inactive metformin 1,000 mg t ablet RxNorm: 682137 TAKE 1 TABLET BY MOUT H TWICE A DAY 11/26/2016 11/20/2017 In active Generic For:*GLUCOPHAGE 1000MG 11/27/19 17 1:05:15 PM naproxen 500 mg tablet RxNorm: 221108 1 Tablet(s) PO BID 10/21/2016 04/18/2017 Inactive levothyroxine 25 mcg tablet RxNorm: 411287 1 Tablet(s) PO daily to take with her 200mcg to equal 225 mcg daily 10/13/2016 01/10/2017 Inactive levothyroxine 50 mcg tablet RxNorm: 078250 1 Tablet(s) PO daily 09/21/2016 10/12/2016 Inactive Invokana 300 mg tablet RxNorm: 0654848 1 Tablet(s) PO daily 09/21/2016 12/19/2016 Inactive metformin 1,000 mg t ablet RxNorm: 350740 TAKE 1 TABLET BY MOUT H TWICE A DAY 09/21/2016 11/25/2016 In active Generic For:*GLUCOPHAGE 1000MG 09/22/19 17 8:53:30 AM levothyroxine 200 mc g tablet RxNorm: 261774 1 Tablet(s) PO daily 09/21/2016 12/19/2016 Inactive Lipitor 40 mg tablet RxNorm: 016866 TAKE 1 TABLET BY MOUTH DAILY 06/23/2016 03/19/2017 Inactive Generic For:LIPITOR 40MG 06/23/2016 9:1 2:42 AM levothyroxine 50 mcg tablet RxNorm: 692274 1 Tablet(s) PO daily TAKE 1 TABLET BY MOUTH DAILY 06/23/2016 09/20/2016 Inactive Generic For:SYNTHROID 50MCG TAB 06/23/2016 9:22:58 AM metformin 1,000 mg t ablet RxNorm: 662231 TAKE 1 TABLET BY MOUT H TWICE A DAY 06/23/2016 09/20/2016 In active Generic For:*GLUCOPHAGE 1000MG 06/23/19 17 9:12:46 AM levothyroxine 200 mc g tablet RxNorm: 131093 1 Tablet(s) PO daily 04/24/2016 08/21/2016 Inactive naproxen 500 mg tablet RxNorm: 666975 1 Tablet(s) PO BID 03/26/2016 10/20/2016 Inactive levothyroxine 50 mcg tablet RxNorm: 755748 1 Tablet(s) PO daily 03/25/2016 06/23/2016 Inactive Flonase Allergy Reli ef 50 mcg/actuation nasal spray,suspension RxNorm: 8974771 1 [facility] NASAL BID 01/14/2016 No Stop Date Active prednisone 20 mg tablet RxNorm: 718444 2 Tablet(s) PO daily 01/14/2016 01/16/2016 Inactive Zithromax Z-Michael 250 mg tablet RxNorm: 722648 Tablet(s) PO 01/14/2016 02/25/2016 Inactive levothyroxine 200 mc g tablet RxNorm: 381270 1 Tablet(s) PO daily 11/25/2015 03/23/2016 Inactive levothyroxine 50 mcg tablet RxNorm: 210457 1 Tablet(s) PO daily 11/25/2015 03/23/2016 Inactive Invokana 300 mg tablet RxNorm: 0798196 1 Tablet(s) PO daily 11/25/2015 09/20/2016 Inactive metformin 1,000 mg t ablet RxNorm: 882182 TAKE 1 TABLET BY MOUT H TWICE A DAY 08/22/2015 05/17/2016 In active Generic For:*GLUCOPHAGE 1000MG N O T I C E PRESCRIPTION PREVIOUSLY AUTHORIZED BY DOCTOR:PEDRO SIMPSON levothyroxine 200 mc g tablet RxNorm: 134443 1 Tablet(s) PO daily 08/02/2015 11/24/2015 Inactive levothyroxine 25 mcg tablet RxNorm: 376388 1 Tablet(s) PO daily 08/02/2015 11/24/2015 Inactive levothyroxine 25 mcg tablet RxNorm: 671674 1 Tablet(s) PO daily 08/02/2015 08/01/2015 Inactive Zithromax Z-Michael 250 mg tablet RxNorm: 487473 Tablet(s) PO 07/31/2015 10/27/2015 Inactive naproxen 500 mg tablet RxNorm: 403409 1 Tablet(s) PO BID 07/31/2015 02/25/2016 Inactive Lipitor 40 mg tablet RxNorm: 816906 TAKE 1 TABLET BY MOUTH DAILY 05/26/2015 05/19/2016 Inactive Generic For:LIPITOR 40MG 05/25/2015 10: 36:19 AM levothyroxine 200 mc g tablet RxNorm: 006443 TAKE 1 TABLET ONCE DA SUKUMAR WITH 50MCG TABLET TO MAKE 250MCG. 05/26/2015 07/30/2015 Inactive Generic For:SYNTHROID 200MC G TAB 05/25/2015 10:36:11 AM Invokana 100 mg tablet RxNorm: 7567036 1 Tablet(s) PO daily 03/15/2015 03/14/2015 Inactive Invokana 100 mg tablet RxNorm: 7731600 1 Tablet(s) PO daily 03/15/2015 11/24/2015 Inactive naproxen 500 mg tablet RxNorm: 999799 1 Tablet(s) PO BID 03/13/2015 07/30/2015 Inactive metformin 1,000 mg t ablet RxNorm: 126382 1 Tablet(s) PO BID 03/13/2015 08/21/2015 Inactive levothyroxine 200 mc g tablet RxNorm: 275601 TAKE 1 TABLET ONCE DA SUKUMAR WITH 50MCG TABLET TO MAKE 250MCG. 02/12/2015 05/12/2015 Inactive Generic For:SYNTHROID 200MC G TAB 02/12/2015 11:50:50 AM Lipitor 40 mg tablet RxNorm: 815558 TAKE 1 TABLET BY MOUTH DAILY 02/12/2015 05/12/2015 Inactive Generic For:LIPITOR 40MG 02/12/2015 11: 50:55 AM levothyroxine 200 mc g tablet RxNorm: 846813 1 Tablet(s) PO daily 11/19/2014 02/11/2015 Inactive levothyroxine 200 mc g tablet RxNorm: 011017 1 Tablet(s) PO daily 11/19/2014 11/18/2014 Inactive Lipitor 40 mg tablet RxNorm: 732849 1 Tablet(s) PO daily call and make appt. 11/19/2014 02/11/2015 In active Lipitor 40 mg tablet RxNorm: 420416 1 Tablet(s) PO daily call and make appt. 11/15/2014 11/18/2014 In active Lipitor 40 mg tablet RxNorm: 530322 1 Tablet(s) PO daily call and make appt. 11/15/2014 11/14/2014 In active Flintstones with Iro n oral RxNorm: oral No Start D ate Active Vitamin B-12 1,000 m cg/mL injection solution RxNorm: 519727 1 Milliliter(s) Inj m onthly No Start Date Active levothyroxine 200 mc g tablet RxNorm: 291290 1 Tablet(s) PO daily No Start Date 08/01/2015 Inactive Medication Administered Medication Codes Instruc tions Start Date Status cyanocobalamin (vit B-12) 1,000 mcg/mL injection solut ion RxNorm: 845702 Milliliter 02/01/2019 No longer Active cyanocobalamin (vit B-12) 1,000 mcg/mL injection solut ion RxNorm: 041159 Milliliter 01/03/2019 No longer Active cyanocobalamin (vit B-12) 1,000 mcg/mL injection solut ion RxNorm: 216839 Milliliter 09/13/2018 No longer Active cyanocobalamin (vit B-12) 1,000 mcg/mL injection solut ion RxNorm: 816124 Milliliter 08/11/2018 No longer Active cyanocobalamin (vit B-12) 1,000 mcg/mL injection solut ion RxNorm: 680969 Milliliter 06/29/2018 No longer Active Kenalog 40 mg/mL suspension for injection RxNorm: 3591979 Milliliter 03/23/2018 No longer Active cyanocobalamin (vit B-12) 1,000 mcg/mL injection solut ion RxNorm: 373147 Milliliter 02/07/2018 No longer Active cyanocobalamin (vit B-12) 1,000 mcg/mL injection solut ion RxNorm: 259831 Milliliter 01/13/2018 No longer Active cyanocobalamin (vit B-12) 1,000 mcg/mL injection solut ion RxNorm: 841935 Milliliter 12/06/2017 No longer Active cyanocobalamin (vit B-12) 1,000 mcg/mL injection solut ion RxNorm: 207352 1Milliliter 11/01/2017 No longer Active cyanocobalamin (vit B-12) 1,000 mcg/mL injection solut ion RxNorm: 988670 1Milliliter 09/28/2017 No longer Active Immunizations Vaccine Codes Date Status Influenza CVX: 141 03/21 completed Assessments Condition Codes Effectiv e Dates Other vitamin B12 deficiency anemias ICD-10: D51.8 [...] ICD- 10: D50.0 ICD-9: 280.0 09/27/2017 Other longterm (current) drug therapy ICD-10: Z79.899 ICD-9: V58.69 [...] Reason For Visit Effective Dates Notes hypothyroid 09/21/2018 hypothyroid 09/10/2017 hypothyroid 10/13/2016 cough 01/14/2016 hypothyroid 07/31/2015 ankle pain 04/04/2015 hypothyroid 03/13/2015 Results Observation Observation Code Item Item Code Result Date Tsh Ord6 TSH (3rd IS) 0.94 uIU/mL 11/07/2018 Free T4 Oag665 FREE T4 1.21 ng/dL 11/07/2018 Free T4 Wed432 FREE T4 1.22 ng/dL 09/20/2018 Cbc With [...] 25.0 pg 09/20/2018 Cbc With Differential Ord2 Cidra% 8.1 % 09/20/2018 Cbc With Differential Ord2 [...] 1.73 K/ul 09/20/2018 Cbc With Differential Ord2 Cidra ABS# 0.8 K/ul 09/20/2018 Cbc With Differential Ord2 Eos ABS# 0.4 K/ul 09/20/2018 Cbc With Differential Ord2 Baso ABS# 0.1 K/ul 09/20/2018 Lipid Ord30 CHOL 176 mg/dL 09/20/2018 Lipid Ord30 HDL 55.0 mg/dl 09/20/2018 Lipid Ord30 TRIG 133 mg/dL 09/20/2018 Lipid Ord30 LDL 94 mg/dL 09/20/2018 Lipid Ord30 C/HDL 3.2 Ratio 09/20/2018 Comp Metabolic Ceb198 NA 140 mEq/L 09/20/2018 Comp Metabolic Snn805 K 4.4 mEq/L 09/20/2018 Comp Metabolic Ccj538 CL 104 mEq/L 09/20/2018 Comp Metabolic Adl261 CO2 27.0 mEq/L 09/20/2018 Comp Metabolic Mrr327 AN ION GAP 13 09/20/2018 Comp Metabolic Dmq307 GL UCOSE 104 mg/dL 09/20/2018 Comp Metabolic Quz962 Cr eat 0.6 mg/dL 09/20/2018 Comp Metabolic Oir072 eG FR 112 ml/min/1.73m2 07/2018 Comp Metabolic Tva620 BUN 18 mg/dL 09/20/2018 Comp Metabolic Wyf711 B/ C Ratio 29.5 Ratio 09/20/2018 Comp Metabolic Qvz392 CA LCIUM 9.4 mg/dL 09/20/2018 Comp Metabolic Flj994 AL K PHOS 97 U/L 09/20/2018 Comp Metabolic Jzt041 T(SGOT) 13 U/L 09/20/2018 Comp Metabolic Erl500 AL T(SGPT) 16 U/L 09/20/2018 Comp Metabolic Oav889 BI LI T 0.2 mg/dL 09/20/2018 Comp Metabolic Ppo510 AL BUMIN 4.0 g/dL 09/20/2018 Comp Metabolic Txj483 TP RO 7.0 g/dL 09/20/2018 Comp Metabolic Kxa282 GL OB 3.0 g/dL 09/20/2018 Comp Metabolic Wll507 A/ G Ratio 1.4 Ratio 09/20/2018 Comp Metabolic Qaq235 Os mo 282 mOsmo 09/20/2018 %Hba1C Ibg827 % HbA1c 45682-4 6.6 % 09/20/2018 %Hba1C Twu887 Gluc Ave 143 mg/dL 09/20/2018 Tsh Ord6 TSH (3rd IS) 1.85 uIU/mL 09/20/2018 Hgb & Hct Ord65 HGB 9.7 g/dl 10/06/2017 Hgb & Hct Ord65 HCT 33.5 % 10/06/2017 Hgb & Hct Ord65 HGB 8.6 g/dl 09/24/2017 Hgb & Hct Ord65 HCT 30.4 % 09/24/2017 B12 Mzb963 B12 124.00 pg/ml 09/15/2017 Cbc With Differential [...] 20.0 pg 09/15/2017 Cbc With Differential Ord2 Cidra% 7.7 % 09/15/2017 Cbc With Differential Ord2 [...] 1.94 K/ul 09/15/2017 Cbc With Differential Ord2 Cidra ABS# 0.8 K/ul 09/15/2017 Cbc With Differential Ord2 Eos ABS# 0.5 K/ul 09/15/2017 Cbc With Differential Ord2 Baso ABS# 0.1 K/ul 09/15/2017 Tibc Ord40 Iron 21 ug/dl 09/15/2017 Tibc Ord40 UIBC 432 ug/dL 09/15/2017 Tibc Ord40 TIBC 453 ug/dL 09/15/2017 Tibc Ord40 Fe-%Sat 4.6 % 09/15/2017 Folate Ord36 Folate 15.31 ng/mL 09/15/2017 Ferritin Ord22 FERRITIN 4.3 ng/mL 09/15/2017 Free T4 Odx576 FREE T4 0.88 ng/dL 09/10/2017 %Hba1C Qnw984 % HbA1c 34838-9 6.7 % 09/10/2017 %Hba1C Tuo965 Gluc Ave 146 mg/dL 09/10/2017 Cbc With [...] 20.5 pg 09/10/2017 Cbc With Differential Ord2 Cidra% 8.0 % 09/10/2017 Cbc With Differential Ord2 [...] 2.10 K/ul 09/10/2017 Cbc With Differential Ord2 Cidra ABS# 0.7 K/ul 09/10/2017 Cbc With Differential Ord2 Eos ABS# 0.5 K/ul 09/10/2017 Cbc With Differential Ord2 Baso ABS# 0.0 K/ul 09/10/2017 Comp Metabolic Zrq269 NA 139 mEq/L 09/10/2017 Comp Metabolic Ioc098 K 4.6 mEq/L 09/10/2017 Comp Metabolic Lqs729 CL 103 mEq/L 09/10/2017 Comp Metabolic Wvc573 CO2 28.0 mEq/L 09/10/2017 Comp Metabolic Rei958 AN ION GAP 13 09/10/2017 Comp Metabolic Vne909 GL UCOSE 91 mg/dL 09/10/2017 Comp Metabolic Wqj859 Cr eat 0.6 mg/dL 09/10/2017 Comp Metabolic Dcg567 eG FR 117 ml/min/1.73m2 08/20 Comp Metabolic Vap148 BUN 22 mg/dL 09/10/2017 Comp Metabolic Xtm538 B/ C Ratio 37.3 Ratio 09/10/2017 Comp Metabolic Akq059 CA LCIUM 9.6 mg/dL 09/10/2017 Comp Metabolic Bfi153 AL K PHOS 100 U/L 09/10/2017 Comp Metabolic Zuf782 T(SGOT) 12 U/L 09/10/2017 Comp Metabolic Lpc800 AL T(SGPT) 13 U/L 09/10/2017 Comp Metabolic Ten812 BI LI T 0.2 mg/dL 09/10/2017 Comp Metabolic Shj689 AL BUMIN 3.9 g/dL 09/10/2017 Comp Metabolic Vxg302 TP RO 7.0 g/dL 09/10/2017 Comp Metabolic Gfu135 GL OB 3.1 g/dL 09/10/2017 Comp Metabolic Oij718 A/ G Ratio 1.3 Ratio 09/10/2017 Comp Metabolic Srw197 Os mo 280 mOsmo 09/10/2017 Tsh Ord6 TSH (3rd IS) 6.83 uIU/mL 09/10/2017 Free T4 Jrq942 FREE T4 1.53 ng/dL 04/07/2017 Tsh Ord6 hTSH II 0.55 uIU/mL 04/07/2017 Tsh Ord6 hTSH II 0.55 uIU/mL 12/30/2016 Free T4 Rec925 FREE T4 1.15 ng/dL 12/30/2016 %Hba1C Gzo520 % HbA1c 93580-9 6.0 % 10/01/2016 %Hba1C Syo922 Gluc Ave 126 mg/dL 10/01/2016 Tsh Ord6 hTSH II 0.19 uIU/mL 10/01/2016 Comp Metabolic Jui438 NA 139 mEq/L 10/01/2016 Comp Metabolic Tmt628 K 4.6 mEq/L 10/01/2016 Comp Metabolic Zpb415 CL 102 mEq/L 10/01/2016 Comp Metabolic Nnu741 CO2 28.0 mEq/L 10/01/2016 Comp Metabolic Hyx801 AN ION GAP 14 10/01/2016 Comp Metabolic Wyt481 GL UCOSE 93 mg/dL 10/01/2016 Comp Metabolic Rlq763 Cr eat 0.6 mg/dL 10/01/2016 Comp Metabolic Agq350 eG FR 109 ml/min/1.73m2 09/19 Comp Metabolic Bvc434 BUN 20 mg/dL 10/01/2016 Comp Metabolic Uon733 B/ C Ratio 31.7 Ratio 10/01/2016 Comp Metabolic Ypj578 CA LCIUM 9.8 mg/dL 10/01/2016 Comp Metabolic Qro362 AL K PHOS 114 U/L 10/01/2016 Comp Metabolic Xwl905 T(SGOT) 11 U/L 10/01/2016 Comp Metabolic Nxi009 AL T(SGPT) 12 U/L 10/01/2016 Comp Metabolic Cit357 BI LI T 0.4 mg/dL 10/01/2016 Comp Metabolic Mir518 AL BUMIN 4.3 g/dL 10/01/2016 Comp Metabolic Kuy848 TP RO 7.2 g/dL 10/01/2016 Comp Metabolic Ujz431 GL OB 2.9 g/dL 10/01/2016 Comp Metabolic Opx601 A/ G Ratio 1.5 Ratio 10/01/2016 Comp Metabolic Byl716 Os mo 280 mOsmo 10/01/2016 Free T4 Lck770 FREE T4 1.37 ng/dL 10/01/2016 Lipid Ord30 [...] 27.9 pg 10/01/2016 Cbc With Differential Ord2 Cidra% 8.5 % 10/01/2016 Cbc With Differential Ord2 [...] 1.69 K/ul 10/01/2016 Cbc With Differential Ord2 Cidra ABS# 0.7 K/ul 10/01/2016 Cbc With Differential [...] 22.7 pg 04/06/2016 Cbc With Differential Ord2 Cidra% 8.2 % 04/06/2016 Cbc With Differential Ord2 [...] 1.48 K/ul 04/06/2016 Cbc With Differential Ord2 Cidra ABS# 0.5 K/ul 04/06/2016 Cbc With Differential Ord2 Eos ABS# 0.4 K/ul 04/06/2016 Cbc With Differential Ord2 Baso ABS# 0.0 K/ul 04/06/2016 Ferritin Ord22 FERRITIN 5.8 ng/mL 04/06/2016 Free T4 Wxp131 FREE T4 1.16 ng/dL 03/16/2016 %Hba1C Vzc841 % HbA1c 95645-5 7.0 % 03/16/2016 %Hba1C Pqa032 Gluc Ave 154 mg/dL 03/16/2016 Cbc With [...] 23.2 pg 03/16/2016 Cbc With Differential Ord2 Cidra% 4.8 % 03/16/2016 Cbc With Differential Ord2 [...] 1.75 K/ul 03/16/2016 Cbc With Differential Ord2 Cidra ABS# 0.6 K/ul 03/16/2016 Cbc With Differential Ord2 Eos ABS# 0.4 K/ul 03/16/2016 Cbc With Differential Ord2 Baso ABS# 0.0 K/ul 03/16/2016 Tsh Ord6 hTSH II 1.39 uIU/mL 03/16/2016 Tsh Ord6 hTSH II 10.28 uIU/mL 11/14/2015 Free T4 Lum358 FREE T4 0.79 ng/dL 11/14/2015 Lipid Ord30 [...] 24.4 pg 11/14/2015 Cbc With Differential Ord2 Cidra% 6.6 % 11/14/2015 Cbc With Differential Ord2 [...] 1.72 K/ul 11/14/2015 Cbc With Differential Ord2 Cidra ABS# 0.8 K/ul 11/14/2015 Cbc With Differential Ord2 Eos ABS# 0.4 K/ul 11/14/2015 Cbc With Differential Ord2 Baso ABS# 0.0 K/ul 11/14/2015 Comp Metabolic Djp772 NA 136 mEq/L 11/14/2015 Comp Metabolic Lta634 K 4.4 mEq/L 11/14/2015 Comp Metabolic Vmq188 CL 101 mEq/L 11/14/2015 Comp Metabolic Udc385 CO2 27.0 mEq/L 11/14/2015 Comp Metabolic Gpq349 AN ION GAP 12 11/14/2015 Comp Metabolic Kun871 GL UCOSE 107 mg/dL 11/14/2015 Comp Metabolic Ztc915 Cr eat 0.6 mg/dL 11/14/2015 Comp Metabolic Zqn973 eG FR 125 ml/min/1.73m2 10/20 Comp Metabolic Jpg918 BUN 14 mg/dL 11/14/2015 Comp Metabolic Fyo329 B/ C Ratio 25.0 Ratio 11/14/2015 Comp Metabolic Hgh137 CA LCIUM 9.6 mg/dL 11/14/2015 Comp Metabolic Nun524 AL K PHOS 104 U/L 11/14/2015 Comp Metabolic Arr448 T(SGOT) 16 U/L 11/14/2015 Comp Metabolic Gfs750 AL T(SGPT) 14 U/L 11/14/2015 Comp Metabolic Eay810 BI LI T 0.3 mg/dL 11/14/2015 Comp Metabolic Mtq120 AL BUMIN 4.0 g/dL 11/14/2015 Comp Metabolic Zpz481 TP RO 7.2 g/dL 11/14/2015 Comp Metabolic Xan223 GL OB 3.2 g/dL 11/14/2015 Comp Metabolic Kii893 A/ G Ratio 1.3 Ratio 11/14/2015 Comp Metabolic Dwj455 Os mo 273 mOsmo 11/14/2015 %Hba1C Bde195 % HbA1c 99506-6 7.0 % 11/14/2015 %Hba1C Ocd049 Gluc Ave 154 mg/dL 11/14/2015 Free T4 Eip168 FREE T4 0.49 ng/dL 08/02/2015 Tsh Ord6 hTSH II 44.41 uIU/mL 07/31/2015 %Hba1C Vhd292 % HbA1c 65275-6 6.7 % 07/31/2015 %Hba1C Ivt957 Gluc Ave 146 mg/dL 07/31/2015 Cbc With [...] Differential Ord2 RDW 14.9 % 03/13/2015 %Hba1C Xfe863 % HbA1c 73980-6 6.8 % 03/13/2015 %Hba1C Ywv198 Gluc Ave 148 mg/dL 03/13/2015 Tsh Ord6 hTSH II 0.95 uIU/mL 03/13/2015 Lipid Ord30 CHOL 146 mg/dL 03/13/2015 Lipid Ord30 HDL 40.0 mg/dl 03/13/2015 Lipid Ord30 TRIG 137 mg/dL 03/13/2015 Lipid Ord30 LDL 79 mg/dL 03/13/2015 Lipid Ord30 C/HDL 3.7 Ratio 03/13/2015 Comp Metabolic Gvd900 NA 135 mEq/L 03/13/2015 Comp Metabolic Ydg838 K 4.5 mEq/L 03/13/2015 Comp Metabolic Dbu579 CL 99 mEq/L 03/13/2015 Comp Metabolic Zwg055 CO2 29.0 mEq/L 03/13/2015 Comp Metabolic Zkg222 AN ION GAP 12 03/13/2015 Comp Metabolic Qld410 GL UCOSE 98 mg/dL 03/13/2015 Comp Metabolic Mdm384 Cr eat 0.7 mg/dL 03/13/2015 Comp Metabolic Edl692 eG FR 100 ml/min/1.73m2 02/20 Comp Metabolic Fpz166 BUN 13 mg/dL 03/13/2015 Comp Metabolic Cqf155 B/ C Ratio 19.1 Ratio 03/13/2015 Comp Metabolic Dfp971 CA LCIUM 9.8 mg/dL 03/13/2015 Comp Metabolic Sld140 AL K PHOS 91 U/L 03/13/2015 Comp Metabolic Sqp863 T(SGOT) 10 U/L 03/13/2015 Comp Metabolic Xbt008 AL T(SGPT) 10 U/L 03/13/2015 Comp Metabolic Fyb215 BI LI T 0.4 mg/dL 03/13/2015 Comp Metabolic Ski154 AL BUMIN 4.1 g/dL 03/13/2015 Comp Metabolic Vkm238 TP RO 6.9 g/dL 03/13/2015 Comp Metabolic Itj806 GL OB 2.8 g/dL 03/13/2015 Comp Metabolic Ytp198 A/ G Ratio 1.5 Ratio 03/13/2015 Comp Metabolic Uzk752 Os mo 270 mOsmo 03/13/2015 Free T4 Ydq278 FREE T4 1.25 ng/dL 03/13/2015 Review of [...] left achilles tendon Procedures Procedure Codes Date THER/PROPH/DIAG INJ SC/IM CPT-4: 77628 02/01/2019 VITAMIN B12 INJECTION CPT-4: J3420 02/01/2019 THER/PROPH/DIAG INJ SC/IM CPT-4: 33908 01/03/2019 VITAMIN B12 INJECTION CPT-4: J3420 01/03/2019 THER/PROPH/DIAG INJ SC/IM CPT-4: 61581 09/13/2018 VITAMIN B12 INJECTION CPT-4: J3420 09/13/2018 THER/PROPH/DIAG INJ SC/IM CPT-4: 26963 08/11/2018 VITAMIN B12 INJECTION CPT-4: J3420 08/11/2018 THER/PROPH/DIAG INJ SC/IM CPT-4: 92642 06/29/2018 THER/PROPH/DIAG INJ SC/IM CPT-4: 91769 03/23/2018 VITAMIN B12 INJECTION CPT-4: J3420 03/23/2018 THER/PROPH/DIAG INJ SC/IM CPT-4: 98936 02/07/2018 VITAMIN B12 INJECTION CPT-4: J3420 02/07/2018 THER/PROPH/DIAG INJ SC/IM CPT-4: 48455 01/13/2018 VITAMIN B12 INJECTION CPT-4: J3420 01/13/2018 VITAMIN B12 INJECTION CPT-4: J3420 12/06/2017 THER/PROPH/DIAG INJ SC/IM CPT-4: 77014 12/06/2017 THER/PROPH/DIAG INJ SC/IM CPT-4: 48066 11/01/2017 VITAMIN B12 INJECTION CPT-4: J3420 11/01/2017 THER/PROPH/DIAG INJ SC/IM CPT-4: 60597 09/28/2017 VITAMIN B12 INJECTION CPT-4: J3420 09/28/2017 Vital Signs Date Vital 09/21/2018 Blood Pressure 1: 122/74 Code: 8480-6 BMI: 45.5 Code: 08447-5 Heart Rate 1: 79 bpm Height: 5'3" SpO2: 98% Temperature: 36.9 (C ) / 98.5 (F) Weight: 257 lbs 11/01/2017 Heigh t: 5'3" 09/10/2017 Blood Pressure 1: 136/70 Code: 8480-6 BMI: 44.6 Code: 75651-7 Heart Rate 1: 91 bpm Height: 5'3" SpO2: 96% Weight: 252 lbs 10/13/2016 Blood Pressure 1: 134/82 Code: 8480-6 BMI: 43.6 Code: 61775-3 Heart Rate 1: 97 bpm Height: 5'3" SpO2: 97% Weight: 246 lbs 01/14/2016 Blood Pressure 1: 132/78 Code: 8480-6 BMI: 45.7 Code: 63708-8 Heart Rate 1: 90 bpm Height: 5'3" SpO2: 98% Weight: 258 lbs 07/31/2015 Blood Pressure 1: 142/80 Code: 8480-6 BMI: 45.7 Code: 72808-0 Heart Rate 1: 78 bpm Height: 5'3" SpO2: 96% Weight: 258 lbs 04/04/2015 Blood Pressure 1: 130/82 Code: 8480-6 BMI: 44.9 Code: 31566-8 Heart Rate 1: 90 bpm Height: 5'3" SpO2: 96% Weight: 253 lbs 5 oz 03/13/2015 Blood Pressure 1: 140/86 Code: 8480-6 BMI: 45.2 Code: 99616-4 Heart Rate 1: 87 bpm Height: 5'3" [...] of the thyroid 09/10/2017 None hypothyroid 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 PATIENT, LEVEL IV Diagnosis: Acne vulgaris[ICD10: L70.0] Diagnosis: Type 2 diabetes mellitus with hyperglycemia[ICD10: E11.65] Diagnosis: Other specified hypothyroidism[ICD10: E03.8] Anyi Cano MD, [facility] CPT-4: 89686 09/21/2018 93904 EST. PATIENT, LEVEL IV Diagnosis: Excessive and frequent menstruation with irregular cycle[ICD10: N92.1] Diagnosis: Type 2 diabetes mellitus with hyperglycemia[ICD10: E11.65] Diagnosis: Other specified hypothyroidism[ICD10: E03.8] Diagnosis: Other longterm (current) drug therapy[ICD10: Z79.899] [facility] CPT-4: 55510 09/10/2017 55688 EST. PATIENT, LEVEL IV Diagnosis: Type 2 diabetes mellitus with hyperglycemia[ICD10: E11.65] Diagnosis: Other specified hypothyroidism[ICD10: E03.8] Diagnosis: Other rn long term care (current) drug therapy[ICD10: Z79.899] Diagnosis: Umbilical hernia without obstruction or gangrene[ICD10: K42.9] [facility] CPT-4: 36433 10/13/2016 25971 EST. PATIENT, LEVEL IV Diagnosis: Other acute sinusitis[ICD10: J01.80] Diagnosis: Other allergic rhinitis[ICD10: J30.89] Diagnosis: Wheezing[ICD10: R06.2] Anyi Caon MD, [facility] CPT-4: 86833 01/14/2016 07460 EST. PATIENT, LEVEL IV Diagnosis: Other longterm (current) drug therapy[ICD10: Z79.899] Diagnosis: Type 2 diabetes mellitus with hyperglycemia[ICD10: E11.65] Diagnosis: Other specified hypothyroidism[ICD10: E03.8] Diagnosis: Mixed hyperlipidemia[ICD10: E78.2] Anyi Cano MD, [facility] CPT-4: 09112 07/31/2015 ([id number]) 66958 EST. P ATIENT, LEVEL III Diagnosis: Achilles tendinitis, left leg[ICD10: M76.62] Beba Cano MD, [facility] CPT-4: 20538 04/04/2015 ([id number]) OFFICE VISI T, NEW - LEVEL 4 Diagnosis: HYPERLIPIDEMIA[ICD9: 272.4] Diagnosis: DIABETES TYPE II[ICD9: 250.00] Diagnosis: HYPOTHYROIDISM[ICD9: 244.9] Diagnosis: ACHILLES TENDINITIS[ICD9: 726.71] Beba Cano MD, [facility] CPT-4: 60749 03/13/2015 Plan of Care Planned Activity Notes C odes Status Date Appointment: Injection 02/01/2019 Patient Education: Patient Medication [...] levels of control. 09/21/2018 Appointment: [facility] Vel[facility]quez WPte[facility] [phone] [phone] ([facility] 09/21/2018 Patient Education: Patient Medication Summary Completed 09/21/2018 Patient Education: Patient Medication Summary Completed 09/19/2018 Appointment: Injection 09/13/2018 Patient Education: Patient Medication Summary Completed 09/13/2018 Appointment: Injection 08/11/2018 Patient Education: Patient Medication Summary Completed 08/11/2018 Appointment: Injection 06/29/2018 Patient Education: Patient Medication Summary Completed 06/29/2018 Patient Education: Patient Medication Summary Completed 04/05/2018 Care Plan: [facility] 50737-5 Pending 04/05/2018 Appointment: Injection 03/23/2018 Patient Education: Patient Medication Summary Completed 03/23/2018 Appointment: Injection 02/07/2018 Patient Education: Patient Medication Summary Completed 02/07/2018 Appointment: Injection 01/13/2018 Patient Education: Patient Medication Summary Completed 01/13/2018 Patient Education: Patient Medication Summary Completed 01/12/2018 Care Plan: [facility]AMMOGRAPHY[facility] : 83576-8 Pending 01/12/2018 Appointment: Injection 12/06/2017 Patient Education: [...] 09/14/2017 Care Plan: Referral Order SNOMED-CT : [id number] Pending 09/13/2017 Visit Plan: Diabetes Mellitus - I h ave recommended for the patient to have follow [...] or pap done - will refer to SOFTWARE APPLICATIONS SPECIALIST due to pt symptoms and difficulty for exam - pt is to notify clinic with any changes or concerns. 09/10/2017 Appointment: Anyi Velázquez WPtel[facility] [phone] [id number] (15 min) Moderate 09/10/2017 Patient Education: Patient Medication Summary Completed 09/10/2017 Referral: Arvind Briseno [address] [facility] Referral Completed 10/27/2016 Referral: Arvind Briseno [address] [place] [address] Referral Initiated 10/27/2016 Visit Plan: Umbilical hernia [...] of control. 10/13/2016 Appointment: Anyi Velázquez WPtel: [phone] [id number] [place] (15 min) Moderate 10/13/2016 Patient Education: Patient Medication Summary Completed 10/13/2016 Care Plan: Referral Order SNOMED-CT : [id number] Pending 10/13/2016 Visit Plan: Sinusitis - Pt [...] allergy spray. 01/14/2016 Appointment: Melissa Newman WPtel: [phone] (30 min) Complex 01/14/2016 Patient Education: Patient [...] not improving. 04/04/2015 Appointment: [phone] ([facility] min) Moderate 04/04/2015 Patient Education: Patient [...] that appt. 03/13/2015 Appointment: Beba Cano WPtel[facility] [phone] [phone] [place] (S[facility] New Patient 03/13/2015 Patient Education: Patient Medication Summary Completed 03/13/2015 Patient Education: Hypertension Completed 03/13/2015 Patient Education: Patient Medication Summary Completed 10/24/2014 Referral: Katia Hunter WPtel: [address] [place] [address] they will call pt to schedule appt Initiated Referral: Katia Hunter WPtel: [address] [place] [address] Referral Initiated Referral: Arvind Briseno [address] [place] [address] Referral Initiated Instructions Comment . Sinusitis - [...] or pap done - will refer to SOFTWARE APPLICATIONS SPECIALIST due to pt symptoms and difficulty for [...]
--- OUTSIDE RECORDS SUMMARY | 2020-01-06 14:37 | XMS REPORT | CCD ---
Author Author Lucia Cano Organization Beba Cano MD, [facility] Address [address] [place] [address] Phone Care Team Providers Care Court Transcriber Name Role Phone PP Unavailable CCM Unavailable Summary Purpose Interface Exchange Insurance Providers Payer name Policy type / Coverage type Covered democrat ID Effective Begin Date Effective End Date WPS Medicare Part B Medicare Part B [id number] Unknown [employer] [facility] Part B [id number] Unk nown Family history Father Diagnosis Age [...] employed [employer] 04/04/[address]: 655313796 Never smoker 04/04/[address]: 212259195 Never drinks alcohol 04/04/2015 Has the patient [...] 706.1 ICD-10: L70.0 Active 09/21/2018 Unknown Other nursing home (cur rent) drug therapy ICD-9: V58.69 ICD-10: [...] ICD-9: 706.1 ICD-10: L70.0 09/21/2018 Active Other nursing home (cur rent) drug therapy ICD-9: V58.69 ICD-10: [...] (vit B-12) 1,000 mcg/mL injection solution RxNorm: 954607 Milliliter(s) Inj 02/01/2019 02/01/2019 Inactive cyanocobalamin (vit B-12) 1,000 mcg/mL injection solution RxNorm: 337844 Milliliter(s) Inj 01/03/2019 01/03/2019 Inactive Lipitor 40 mg tablet RxNorm: 242037 TAKE 1 TABLET BY MOUTH DAILY 12/13/2018 12/07/2019 Active Generic For:LIPITOR 40MG 12/13/2018 9:1 7:44 AM naproxen 500 mg tablet RxNorm: 554756 TAKE 1 TABLET BY MOUTH TWICE DAILY 11/15/2018 05/13/2019 Ac tive Generic For:NAPROSYN 500MG 11/15/2018 1 1:09:17 AM N O T I C E Last quantity doesn't match original quantity Farxiga 10 mg tablet RxNorm: 0529955 1 Tablet(s) PO daily 09/21/2018 09/20/[address] of invokana Farxiga 10 mg tablet RxNorm: 7926532 1 Tablet(s) PO daily 09/21/2018 01/18/[address] invokana cyanocobalamin (vit B-12) 1,000 mcg/mL injection solution RxNorm: 751151 Milliliter(s) Inj 09/13/2018 09/13/2018 Inactive cyanocobalamin (vit B-12) 1,000 mcg/mL injection solution RxNorm: 759634 Milliliter(s) Inj 08/11/2018 08/11/2018 Inactive naproxen 500 mg tablet RxNorm: 447086 TAKE 1 TABLET BY MOUTH TWICE DAILY 08/09/2018 11/06/2018 In active Generic For:NAPROSYN 500MG 08/09/2018 1 1:14:27 AM N O T I C E Last quantity doesn't match original quantity levothyroxine 200 mc g tablet RxNorm: 225465 1 Tablet(s) PO daily to take with the 50mcg daily to equal 250mcg daily 07/19/2018 04/14/2019 Active cyanocobalamin (vit B-12) 1,000 mcg/mL injection solution RxNorm: 629965 Milliliter(s) Inj 06/29/2018 06/29/2018 Inactive naproxen 500 mg tablet RxNorm: 056600 TAKE 1 TABLET BY MOUTH TWICE DAILY 05/19/2018 08/08/2018 In active Generic For:NAPROSYN 500MG 05/19/2018 1 0:56:16 AM N O T I C E Last quantity doesn't match original quantity Kenalog 40 mg/mL debora pension for injection RxNorm: 2573008 Milliliter(s) Inj 03/23/2018 03/23/2018 In active levothyroxine 50 mcg tablet RxNorm: 839350 TAKE 1 TABLET BY MOUT H ONCE DAILY WITH 200MCG (250MCG TOTAL) 03/11/2018 06/08/2018 Inactive Generic For:SYNTHROID 50MCG TAB 03/11/2018 9:09:32 AM naproxen 500 mg tablet RxNorm: 647143 TAKE 1 TABLET BY MOUTH TWICE DAILY 02/25/2018 05/18/2018 In active Generic For:NAPROSYN 500MG 02/25/2018 1 2:39:53 PM N O T I C E Last quantity doesn't match original quantity cyanocobalamin (vit B-12) 1,000 mcg/mL injection solution RxNorm: 924126 Milliliter(s) Inj 02/07/2018 02/07/2018 Inactive metformin 1,000 mg t ablet RxNorm: 696878 TAKE 1 TABLET BY MOUT H TWICE A DAY 01/19/2018 01/13/2019 In active Generic For:*GLUCOPHAGE 1000MG 01/20/20 18 10:20:50 AM cyanocobalamin (vit B-12) 1,000 mcg/mL injection solution RxNorm: 308210 Milliliter(s) Inj 01/13/2018 01/13/2018 Inactive cyanocobalamin (vit B-12) 1,000 mcg/mL injection solution RxNorm: 588058 Milliliter(s) Inj 12/06/2017 12/06/2017 Inactive Invokana 300 mg tablet RxNorm: 1443100 TAKE 1 TABLET BY MOUTH DAILY 11/08/2017 09/20/2018 In active 11/05/2017 5:10:44 PM naproxen 500 mg tablet RxNorm: 398619 TAKE 1 TABLET BY MOUTH TWICE DAILY 11/08/2017 02/05/2018 In active Generic For:NAPROSYN 500MG 11/08/2017 9 :14:56 AM N O T I C E Last quantity doesn't match original quantity Lipitor 40 mg tablet RxNorm: 388903 TAKE 1 TABLET BY MOUTH DAILY 11/08/2017 11/02/2018 Inactive Generic For:LIPITOR 40MG 11/05/2017 5:1 0:24 PM levothyroxine 50 mcg tablet RxNorm: 510500 1 Tablet(s) PO daily to take with the 200mcg daily to equal 250mcg daily 11/08/2017 02/05/2018 Inactive cyanocobalamin (vit B-12) 1,000 mcg/mL injection solution RxNorm: 852226 1 Milliliter(s) Inj 11/01/2017 11/01/2017 Inactive cyanocobalamin (vit B-12) 1,000 mcg/mL injection solution RxNorm: 222634 1 Milliliter(s) Inj 09/28/2017 09/28/2017 Inactive levothyroxine 200 mc g tablet RxNorm: 583861 1 Tablet(s) PO daily to take with the 50mcg daily to equal 250mcg daily 09/14/2017 06/10/2018 Inactive levothyroxine 50 mcg tablet RxNorm: 733804 1 Tablet(s) PO daily to take with the 200mcg daily to equal 250mcg daily 09/14/2017 11/07/2017 Inactive naproxen 500 mg tablet RxNorm: 226374 TAKE 1 TABLET BY MOUTH TWICE DAILY 08/05/2017 11/02/2017 In active Generic For:NAPROSYN 500MG 08/05/2017 9 :04:47 AM N O T I C E Last quantity doesn't match original quantity naproxen 500 mg tablet RxNorm: 881701 TAKE 1 TABLET BY MOUTH TWICE DAILY 04/19/2017 08/04/2017 In active Generic For:NAPROSYN 500MG 04/19/2017 1 :49:28 PM Lipitor 40 mg tablet RxNorm: 684098 TAKE 1 TABLET BY MOUTH DAILY 03/22/2017 11/07/2017 Inactive Generic For:LIPITOR 40MG 03/20/2017 9:0 5:49 AM levothyroxine 25 mcg tablet RxNorm: 169263 1 Tablet(s) PO daily to take with her 200mcg to equal 225 mcg daily 03/22/2017 04/08/2017 Inactive Invokana 300 mg tablet RxNorm: 8500733 TAKE 1 TABLET BY MOUTH DAILY 12/21/2016 09/16/2017 In active 12/21/2016 9:03:03 AM levothyroxine 200 mc g tablet RxNorm: 871475 1 Tablet(s) PO daily 12/21/2016 09/13/2017 Inactive metformin 1,000 mg t ablet RxNorm: 726654 TAKE 1 TABLET BY MOUT H TWICE A DAY 11/26/2016 11/20/2017 In active Generic For:*GLUCOPHAGE 1000MG 11/27/19 17 1:05:15 PM naproxen 500 mg tablet RxNorm: 249715 1 Tablet(s) PO BID 10/21/2016 04/18/2017 Inactive levothyroxine 25 mcg tablet RxNorm: 884605 1 Tablet(s) PO daily to take with her 200mcg to equal 225 mcg daily 10/13/2016 01/10/2017 Inactive levothyroxine 50 mcg tablet RxNorm: 427342 1 Tablet(s) PO daily 09/21/2016 10/12/2016 Inactive Invokana 300 mg tablet RxNorm: 5992512 1 Tablet(s) PO daily 09/21/2016 12/19/2016 Inactive metformin 1,000 mg t ablet RxNorm: 972388 TAKE 1 TABLET BY MOUT H TWICE A DAY 09/21/2016 11/25/2016 In active Generic For:*GLUCOPHAGE 1000MG 09/22/19 17 8:53:30 AM levothyroxine 200 mc g tablet RxNorm: 484489 1 Tablet(s) PO daily 09/21/2016 12/19/2016 Inactive Lipitor 40 mg tablet RxNorm: 908660 TAKE 1 TABLET BY MOUTH DAILY 06/23/2016 03/19/2017 Inactive Generic For:LIPITOR 40MG 06/23/2016 9:1 2:42 AM levothyroxine 50 mcg tablet RxNorm: 182101 1 Tablet(s) PO daily TAKE 1 TABLET BY MOUTH DAILY 06/23/2016 09/20/2016 Inactive Generic For:SYNTHROID 50MCG TAB 06/23/2016 9:22:58 AM metformin 1,000 mg t ablet RxNorm: 532992 TAKE 1 TABLET BY MOUT H TWICE A DAY 06/23/2016 09/20/2016 In active Generic For:*GLUCOPHAGE 1000MG 06/23/19 17 9:12:46 AM levothyroxine 200 mc g tablet RxNorm: 627654 1 Tablet(s) PO daily 04/24/2016 08/21/2016 Inactive naproxen 500 mg tablet RxNorm: 544685 1 Tablet(s) PO BID 03/26/2016 10/20/2016 Inactive levothyroxine 50 mcg tablet RxNorm: 702265 1 Tablet(s) PO daily 03/25/2016 06/23/2016 Inactive Flonase Allergy Reli ef 50 mcg/actuation nasal spray,suspension RxNorm: 3717856 1 [place] NASAL BID 01/14/2016 No Stop Date Active prednisone 20 mg tablet RxNorm: 393139 2 Tablet(s) PO daily 01/14/2016 01/16/2016 Inactive Zithromax Z-Michael 250 mg tablet RxNorm: 760901 Tablet(s) PO 01/14/2016 02/25/2016 Inactive levothyroxine 200 mc g tablet RxNorm: 930098 1 Tablet(s) PO daily 11/25/2015 03/23/2016 Inactive levothyroxine 50 mcg tablet RxNorm: 293434 1 Tablet(s) PO daily 11/25/2015 03/23/2016 Inactive Invokana 300 mg tablet RxNorm: 9425094 1 Tablet(s) PO daily 11/25/2015 09/20/2016 Inactive metformin 1,000 mg t ablet RxNorm: 541393 TAKE 1 TABLET BY MOUT H TWICE A DAY 08/22/2015 05/17/2016 In active Generic For:*GLUCOPHAGE 1000MG N O T I C E PRESCRIPTION PREVIOUSLY AUTHORIZED BY DOCTOR:PEDRO SIMPSON levothyroxine 200 mc g tablet RxNorm: 466043 1 Tablet(s) PO daily 08/02/2015 11/24/2015 Inactive levothyroxine 25 mcg tablet RxNorm: 623310 1 Tablet(s) PO daily 08/02/2015 11/24/2015 Inactive levothyroxine 25 mcg tablet RxNorm: 342543 1 Tablet(s) PO daily 08/02/2015 08/01/2015 Inactive Zithromax Z-Michael 250 mg tablet RxNorm: 409721 Tablet(s) PO 07/31/2015 10/27/2015 Inactive naproxen 500 mg tablet RxNorm: 856988 1 Tablet(s) PO BID 07/31/2015 02/25/2016 Inactive Lipitor 40 mg tablet RxNorm: 635124 TAKE 1 TABLET BY MOUTH DAILY 05/26/2015 05/19/2016 Inactive Generic For:LIPITOR 40MG 05/25/2015 10: 36:19 AM levothyroxine 200 mc g tablet RxNorm: 028007 TAKE 1 TABLET ONCE DA SUKUMAR WITH 50MCG TABLET TO MAKE 250MCG. 05/26/2015 07/30/2015 Inactive Generic For:SYNTHROID 200MC G TAB 05/25/2015 10:36:11 AM Invokana 100 mg tablet RxNorm: 3596232 1 Tablet(s) PO daily 03/15/2015 03/14/2015 Inactive Invokana 100 mg tablet RxNorm: 4416028 1 Tablet(s) PO daily 03/15/2015 11/24/2015 Inactive naproxen 500 mg tablet RxNorm: 299513 1 Tablet(s) PO BID 03/13/2015 07/30/2015 Inactive metformin 1,000 mg t ablet RxNorm: 032863 1 Tablet(s) PO BID 03/13/2015 08/21/2015 Inactive levothyroxine 200 mc g tablet RxNorm: 828985 TAKE 1 TABLET ONCE DA SUKUMAR WITH 50MCG TABLET TO MAKE 250MCG. 02/12/2015 05/12/2015 Inactive Generic For:SYNTHROID 200MC G TAB 02/12/2015 11:50:50 AM Lipitor 40 mg tablet RxNorm: 974716 TAKE 1 TABLET BY MOUTH DAILY 02/12/2015 05/12/2015 Inactive Generic For:LIPITOR 40MG 02/12/2015 11: 50:55 AM levothyroxine 200 mc g tablet RxNorm: 622587 1 Tablet(s) PO daily 11/19/2014 02/11/2015 Inactive levothyroxine 200 mc g tablet RxNorm: 552550 1 Tablet(s) PO daily 11/19/2014 11/18/2014 Inactive Lipitor 40 mg tablet RxNorm: 103853 1 Tablet(s) PO daily call and make appt. 11/19/2014 02/11/2015 In active Lipitor 40 mg tablet RxNorm: 862072 1 Tablet(s) PO daily call and make appt. 11/15/2014 11/18/2014 In active Lipitor 40 mg tablet RxNorm: 096018 1 Tablet(s) PO daily call and make appt. 11/15/2014 11/14/2014 In active [place] with Iro n oral RxNorm: oral No Start D ate Active Vitamin B-12 1,000 m cg/mL injection solution RxNorm: 908439 1 Milliliter(s) Inj m onthly No Start Date Active levothyroxine 200 mc g tablet RxNorm: 806807 1 Tablet(s) PO daily No Start Date 08/01/2015 Inactive Medication Administered Medication Codes Instruc tions Start Date Status cyanocobalamin (vit B-12) 1,000 mcg/mL injection solut ion RxNorm: 435033 Milliliter 02/01/2019 Active cyanocobalamin (vit B-12) 1,000 mcg/mL injection solut ion RxNorm: 130866 Milliliter 01/03/2019 No longer Active cyanocobalamin (vit B-12) 1,000 mcg/mL injection solut ion RxNorm: 083908 Milliliter 09/13/2018 No longer Active cyanocobalamin (vit B-12) 1,000 mcg/mL injection solut ion RxNorm: 812733 Milliliter 08/11/2018 No longer Active cyanocobalamin (vit B-12) 1,000 mcg/mL injection solut ion RxNorm: 187016 Milliliter 06/29/2018 No longer Active Kenalog 40 mg/mL suspension for injection RxNorm: 1307129 Milliliter 03/23/2018 No longer Active cyanocobalamin (vit B-12) 1,000 mcg/mL injection solut ion RxNorm: 306165 Milliliter 02/07/2018 No longer Active cyanocobalamin (vit B-12) 1,000 mcg/mL injection solut ion RxNorm: 738244 Milliliter 01/13/2018 No longer Active cyanocobalamin (vit B-12) 1,000 mcg/mL injection solut ion RxNorm: 316535 Milliliter 12/06/2017 No longer Active cyanocobalamin (vit B-12) 1,000 mcg/mL injection solut ion RxNorm: 396664 1Milliliter 11/01/2017 No longer Active cyanocobalamin (vit B-12) 1,000 mcg/mL injection solut ion RxNorm: 187637 1Milliliter 09/28/2017 No longer Active Immunizations Vaccine [...] ICD- 10: D50.0 ICD-9: 280.0 09/27/2017 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 ICD-10: Z79.899 ICD-9: V58.69 [...] ICD-9: 250.00 03/13/2015 HYPOTHYROIDISM ICD-9: 244.9 03/13/2015 OT SCREENING MAMMOGRAM ICD-9: V76.12 10/24/2014 Reason For Visit Reason For Visit Effective Dates Notes hypothyroid 09/21/2018 hypothyroid 09/10/2017 hypothyroid 10/13/2016 cough 01/14/2016 hypothyroid 07/31/2015 ankle pain 04/04/2015 hypothyroid 03/13/2015 Results Observation Observation Code Item Item Code Result Date Tsh Ord6 TSH (3rd IS) 0.94 uIU/mL 11/07/2018 Free T4 Jay977 FREE T4 1.21 ng/dL 11/07/2018 Free T4 Bcw291 FREE T4 1.22 ng/dL 09/20/2018 Cbc With [...] 25.0 pg 09/20/2018 Cbc With Differential Ord2 [place]% 8.1 % 09/20/2018 Cbc With Differential Ord2 [...] 1.73 K/ul 09/20/2018 Cbc With Differential Ord2 [place] ABS# 0.8 K/ul 09/20/2018 Cbc With Differential Ord2 Eos ABS# 0.4 K/ul 09/20/2018 Cbc With Differential Ord2 Baso ABS# 0.1 K/ul 09/20/2018 Lipid Ord30 CHOL 176 mg/dL 09/20/2018 Lipid Ord30 HDL 55.0 mg/dl 09/20/2018 Lipid Ord30 TRIG 133 mg/dL 09/20/2018 Lipid Ord30 LDL 94 mg/dL 09/20/2018 Lipid Ord30 C/HDL 3.2 Ratio 09/20/2018 Comp Metabolic Zkr863 NA 140 mEq/L 09/20/2018 Comp Metabolic Gsu134 K 4.4 mEq/L 09/20/2018 Comp Metabolic Fyz365 CL 104 mEq/L 09/20/2018 Comp Metabolic Pxp130 CO2 27.0 mEq/L 09/20/2018 Comp Metabolic Yrg078 AN ION GAP 13 09/20/2018 Comp Metabolic Qhc964 GL UCOSE 104 mg/dL 09/20/2018 Comp Metabolic Blr596 Cr eat 0.6 mg/dL 09/20/2018 Comp Metabolic Kmx275 eG FR 112 ml/min/1.73m2 07/2018 Comp Metabolic Vnp829 BUN 18 mg/dL 09/20/2018 Comp Metabolic Obt191 B/ C Ratio 29.5 Ratio 09/20/2018 Comp Metabolic Wcz025 CA LCIUM 9.4 mg/dL 09/20/2018 Comp Metabolic Ufv861 AL K PHOS 97 U/L 09/20/2018 Comp Metabolic Syp559 T(SGOT) 13 U/L 09/20/2018 Comp Metabolic Ral635 AL T(SGPT) 16 U/L 09/20/2018 Comp Metabolic Slw377 BI LI T 0.2 mg/dL 09/20/2018 Comp Metabolic Ttg613 AL BUMIN 4.0 g/dL 09/20/2018 Comp Metabolic Wns809 TP RO 7.0 g/dL 09/20/2018 Comp Metabolic Fqb754 GL OB 3.0 g/dL 09/20/2018 Comp Metabolic Wqi614 A/ G Ratio 1.4 Ratio 09/20/2018 Comp Metabolic Aar454 Os mo 282 mOsmo 09/20/2018 %Hba1C Gqa111 % HbA1c 35458-2 6.6 % 09/20/2018 %Hba1C Tnb645 Gluc Ave 143 mg/dL 09/20/2018 Tsh Ord6 TSH (3rd IS) 1.85 uIU/mL 09/20/2018 Hgb & Hct Ord65 HGB 9.7 g/dl 10/06/2017 Hgb & Hct Ord65 HCT 33.5 % 10/06/2017 Hgb & Hct Ord65 HGB 8.6 g/dl 09/24/2017 Hgb & Hct Ord65 HCT 30.4 % 09/24/2017 B12 Wly586 B12 124.00 pg/ml 09/15/2017 Cbc With Differential [...] 20.0 pg 09/15/2017 Cbc With Differential Ord2 [place]% 7.7 % 09/15/2017 Cbc With Differential Ord2 [...] 1.94 K/ul 09/15/2017 Cbc With Differential Ord2 [place] ABS# 0.8 K/ul 09/15/2017 Cbc With Differential Ord2 Eos ABS# 0.5 K/ul 09/15/2017 Cbc With Differential Ord2 Baso ABS# 0.1 K/ul 09/15/2017 Tibc Ord40 Iron 21 ug/dl 09/15/2017 Tibc Ord40 UIBC 432 ug/dL 09/15/2017 Tibc Ord40 TIBC 453 ug/dL 09/15/2017 Tibc Ord40 Fe-%Sat 4.6 % 09/15/2017 Folate Ord36 Folate 15.31 ng/mL 09/15/2017 Ferritin Ord22 FERRITIN 4.3 ng/mL 09/15/2017 Free T4 Rqz431 FREE T4 0.88 ng/dL 09/10/2017 %Hba1C Tkf107 % HbA1c 77752-8 6.7 % 09/10/2017 %Hba1C Lor711 Gluc Ave 146 mg/dL 09/10/2017 Cbc With [...] 20.5 pg 09/10/2017 Cbc With Differential Ord2 [place]% 8.0 % 09/10/2017 Cbc With Differential Ord2 [...] 2.10 K/ul 09/10/2017 Cbc With Differential Ord2 [place] ABS# 0.7 K/ul 09/10/2017 Cbc With Differential Ord2 Eos ABS# 0.5 K/ul 09/10/2017 Cbc With Differential Ord2 Baso ABS# 0.0 K/ul 09/10/2017 Comp Metabolic Xjj556 NA 139 mEq/L 09/10/2017 Comp Metabolic Pyw752 K 4.6 mEq/L 09/10/2017 Comp Metabolic Tsg835 CL 103 mEq/L 09/10/2017 Comp Metabolic Bbj700 CO2 28.0 mEq/L 09/10/2017 Comp Metabolic Fap556 AN ION GAP 13 09/10/2017 Comp Metabolic Siy322 GL UCOSE 91 mg/dL 09/10/2017 Comp Metabolic Bot406 Cr eat 0.6 mg/dL 09/10/2017 Comp Metabolic Itm187 eG FR 117 ml/min/1.73m2 08/20 Comp Metabolic Oic275 BUN 22 mg/dL 09/10/2017 Comp Metabolic Jwy396 B/ C Ratio 37.3 Ratio 09/10/2017 Comp Metabolic Kgu699 CA LCIUM 9.6 mg/dL 09/10/2017 Comp Metabolic Qbz063 AL K PHOS 100 U/L 09/10/2017 Comp Metabolic Sdm065 T(SGOT) 12 U/L 09/10/2017 Comp Metabolic Ndc998 AL T(SGPT) 13 U/L 09/10/2017 Comp Metabolic Lzn583 BI LI T 0.2 mg/dL 09/10/2017 Comp Metabolic Tut529 AL BUMIN 3.9 g/dL 09/10/2017 Comp Metabolic Hcc842 TP RO 7.0 g/dL 09/10/2017 Comp Metabolic Nos164 GL OB 3.1 g/dL 09/10/2017 Comp Metabolic Qbf209 A/ G Ratio 1.3 Ratio 09/10/2017 Comp Metabolic Xym726 Os mo 280 mOsmo 09/10/2017 Tsh Ord6 TSH (3rd IS) 6.83 uIU/mL 09/10/2017 Free T4 Adi037 FREE T4 1.53 ng/dL 04/07/2017 Tsh Ord6 hTSH II 0.55 uIU/mL 04/07/2017 Tsh Ord6 hTSH II 0.55 uIU/mL 12/30/2016 Free T4 Bfq968 FREE T4 1.15 ng/dL 12/30/2016 %Hba1C Yid805 % HbA1c 49835-2 6.0 % 10/01/2016 %Hba1C Pxy557 Gluc Ave 126 mg/dL 10/01/2016 Tsh Ord6 hTSH II 0.19 uIU/mL 10/01/2016 Comp Metabolic Psp893 NA 139 mEq/L 10/01/2016 Comp Metabolic Xlf541 K 4.6 mEq/L 10/01/2016 Comp Metabolic Mvf844 CL 102 mEq/L 10/01/2016 Comp Metabolic Cmz331 CO2 28.0 mEq/L 10/01/2016 Comp Metabolic Ewr186 AN ION GAP 14 10/01/2016 Comp Metabolic Wwd584 GL UCOSE 93 mg/dL 10/01/2016 Comp Metabolic Qxj096 Cr eat 0.6 mg/dL 10/01/2016 Comp Metabolic Dcq835 eG FR 109 ml/min/1.73m2 09/19 Comp Metabolic Qiv373 BUN 20 mg/dL 10/01/2016 Comp Metabolic Phb368 B/ C Ratio 31.7 Ratio 10/01/2016 Comp Metabolic Lpj256 CA LCIUM 9.8 mg/dL 10/01/2016 Comp Metabolic Yos403 AL K PHOS 114 U/L 10/01/2016 Comp Metabolic Idm280 T(SGOT) 11 U/L 10/01/2016 Comp Metabolic Hie234 AL T(SGPT) 12 U/L 10/01/2016 Comp Metabolic Yvi517 BI LI T 0.4 mg/dL 10/01/2016 Comp Metabolic Qip574 AL BUMIN 4.3 g/dL 10/01/2016 Comp Metabolic Dpt271 TP RO 7.2 g/dL 10/01/2016 Comp Metabolic Pim704 GL OB 2.9 g/dL 10/01/2016 Comp Metabolic Vqt995 A/ G Ratio 1.5 Ratio 10/01/2016 Comp Metabolic Pwu734 Os mo 280 mOsmo 10/01/2016 Free T4 Aoq096 FREE T4 1.37 ng/dL 10/01/2016 Lipid Ord30 [...] 27.9 pg 10/01/2016 Cbc With Differential Ord2 [place]% 8.5 % 10/01/2016 Cbc With Differential Ord2 [...] 1.69 K/ul 10/01/2016 Cbc With Differential Ord2 [place] ABS# 0.7 K/ul 10/01/2016 Cbc With Differential [...] 22.7 pg 04/06/2016 Cbc With Differential Ord2 [place]% 8.2 % 04/06/2016 Cbc With Differential Ord2 [...] 1.48 K/ul 04/06/2016 Cbc With Differential Ord2 [place] ABS# 0.5 K/ul 04/06/2016 Cbc With Differential Ord2 Eos ABS# 0.4 K/ul 04/06/2016 Cbc With Differential Ord2 Baso ABS# 0.0 K/ul 04/06/2016 Ferritin Ord22 FERRITIN 5.8 ng/mL 04/06/2016 Free T4 Egy647 FREE T4 1.16 ng/dL 03/16/2016 %Hba1C Uvi602 % HbA1c 47957-4 7.0 % 03/16/2016 %Hba1C Ocw813 Gluc Ave 154 mg/dL 03/16/2016 Cbc With [...] 23.2 pg 03/16/2016 Cbc With Differential Ord2 [place]% 4.8 % 03/16/2016 Cbc With Differential Ord2 [...] 1.75 K/ul 03/16/2016 Cbc With Differential Ord2 [place] ABS# 0.6 K/ul 03/16/2016 Cbc With Differential Ord2 Eos ABS# 0.4 K/ul 03/16/2016 Cbc With Differential Ord2 Baso ABS# 0.0 K/ul 03/16/2016 Tsh Ord6 hTSH II 1.39 uIU/mL 03/16/2016 Tsh Ord6 hTSH II 10.28 uIU/mL 11/14/2015 Free T4 Muq556 FREE T4 0.79 ng/dL 11/14/2015 Lipid Ord30 [...] 24.4 pg 11/14/2015 Cbc With Differential Ord2 [place]% 6.6 % 11/14/2015 Cbc With Differential Ord2 [...] 1.72 K/ul 11/14/2015 Cbc With Differential Ord2 [place] ABS# 0.8 K/ul 11/14/2015 Cbc With Differential Ord2 Eos ABS# 0.4 K/ul 11/14/2015 Cbc With Differential Ord2 Baso ABS# 0.0 K/ul 11/14/2015 Comp Metabolic Uqb909 NA 136 mEq/L 11/14/2015 Comp Metabolic Vrh545 K 4.4 mEq/L 11/14/2015 Comp Metabolic Tkr053 CL 101 mEq/L 11/14/2015 Comp Metabolic Iep407 CO2 27.0 mEq/L 11/14/2015 Comp Metabolic Kbu101 AN ION GAP 12 11/14/2015 Comp Metabolic Mdb435 GL UCOSE 107 mg/dL 11/14/2015 Comp Metabolic Gap356 Cr eat 0.6 mg/dL 11/14/2015 Comp Metabolic Ldj649 eG FR 125 ml/min/1.73m2 10/20 Comp Metabolic Deq014 BUN 14 mg/dL 11/14/2015 Comp Metabolic Nkn666 B/ C Ratio 25.0 Ratio 11/14/2015 Comp Metabolic Vua543 CA LCIUM 9.6 mg/dL 11/14/2015 Comp Metabolic Vxj727 AL K PHOS 104 U/L 11/14/2015 Comp Metabolic Pbh939 T(SGOT) 16 U/L 11/14/2015 Comp Metabolic Zfg739 AL T(SGPT) 14 U/L 11/14/2015 Comp Metabolic Lcz742 BI LI T 0.3 mg/dL 11/14/2015 Comp Metabolic Twj380 AL BUMIN 4.0 g/dL 11/14/2015 Comp Metabolic Vqc428 TP RO 7.2 g/dL 11/14/2015 Comp Metabolic Wpt280 GL OB 3.2 g/dL 11/14/2015 Comp Metabolic Kjg283 A/ G Ratio 1.3 Ratio 11/14/2015 Comp Metabolic Oso496 Os mo 273 mOsmo 11/14/2015 %Hba1C Rba784 % HbA1c 10821-1 7.0 % 11/14/2015 %Hba1C Kgp817 Gluc Ave 154 mg/dL 11/14/2015 Free T4 Zqh593 FREE T4 0.49 ng/dL 08/02/2015 Tsh Ord6 hTSH II 44.41 uIU/mL 07/31/2015 %Hba1C Oyv124 % HbA1c 95260-7 6.7 % 07/31/2015 %Hba1C Xoy795 Gluc Ave 146 mg/dL 07/31/2015 Cbc With [...] Differential Ord2 RDW 14.9 % 03/13/2015 %Hba1C Lat416 % HbA1c 00658-3 6.8 % 03/13/2015 %Hba1C Kxu946 Gluc Ave 148 mg/dL 03/13/2015 Tsh Ord6 hTSH II 0.95 uIU/mL 03/13/2015 Lipid Ord30 CHOL 146 mg/dL 03/13/2015 Lipid Ord30 HDL 40.0 mg/dl 03/13/2015 Lipid Ord30 TRIG 137 mg/dL 03/13/2015 Lipid Ord30 LDL 79 mg/dL 03/13/2015 Lipid Ord30 C/HDL 3.7 Ratio 03/13/2015 Comp Metabolic Wen464 NA 135 mEq/L 03/13/2015 Comp Metabolic Kyk482 K 4.5 mEq/L 03/13/2015 Comp Metabolic Dqh632 CL 99 mEq/L 03/13/2015 Comp Metabolic Suj895 CO2 29.0 mEq/L 03/13/2015 Comp Metabolic Nmi505 AN ION GAP 12 03/13/2015 Comp Metabolic Zdb605 GL UCOSE 98 mg/dL 03/13/2015 Comp Metabolic Mwy731 Cr eat 0.7 mg/dL 03/13/2015 Comp Metabolic Mkm398 eG FR 100 ml/min/1.73m2 02/20 Comp Metabolic Wvu604 BUN 13 mg/dL 03/13/2015 Comp Metabolic Iwd072 B/ C Ratio 19.1 Ratio 03/13/2015 Comp Metabolic Nlf814 CA LCIUM 9.8 mg/dL 03/13/2015 Comp Metabolic Ndb735 AL K PHOS 91 U/L 03/13/2015 Comp Metabolic Yip682 T(SGOT) 10 U/L 03/13/2015 Comp Metabolic Yls427 AL T(SGPT) 10 U/L 03/13/2015 Comp Metabolic Gfy334 BI LI T 0.4 mg/dL 03/13/2015 Comp Metabolic Yyp645 AL BUMIN 4.1 g/dL 03/13/2015 Comp Metabolic Dbk496 TP RO 6.9 g/dL 03/13/2015 Comp Metabolic Qtr277 GL OB 2.8 g/dL 03/13/2015 Comp Metabolic Odb820 A/ G Ratio 1.5 Ratio 03/13/2015 Comp Metabolic Nnk370 Os mo 270 mOsmo 03/13/2015 Free T4 Boq080 FREE T4 1.25 ng/dL 03/13/2015 Review of [...] lips 09/21/2018 None Full Exam - General 1995 Ears/Nose/Throat oral cavity/pharynx/larynx Overall: oral mucosa clear [...] Procedure Codes Date THER/PROPH/DIAG INJ SC/IM CPT-4: 31828 02/01/2019 VITAMIN B12 INJECTION CPT-4: J3420 02/01/2019 THER/PROPH/DIAG INJ SC/IM CPT-4: 82268 01/03/2019 VITAMIN B12 INJECTION CPT-4: J3420 01/03/2019 THER/PROPH/DIAG INJ SC/IM CPT-4: 61747 09/13/2018 VITAMIN B12 INJECTION CPT-4: J3420 09/13/2018 THER/PROPH/DIAG INJ SC/IM CPT-4: 68345 08/11/2018 VITAMIN B12 INJECTION CPT-4: J3420 08/11/2018 THER/PROPH/DIAG INJ SC/IM CPT-4: 99932 06/29/2018 THER/PROPH/DIAG INJ SC/IM CPT-4: 91846 03/23/2018 VITAMIN B12 INJECTION CPT-4: J3420 03/23/2018 THER/PROPH/DIAG INJ SC/IM CPT-4: 85105 02/07/2018 VITAMIN B12 INJECTION CPT-4: J3420 02/07/2018 THER/PROPH/DIAG INJ SC/IM CPT-4: 22022 01/13/2018 VITAMIN B12 INJECTION CPT-4: J3420 01/13/2018 VITAMIN B12 INJECTION CPT-4: J3420 12/06/2017 THER/PROPH/DIAG INJ SC/IM CPT-4: 74110 12/06/2017 THER/PROPH/DIAG INJ SC/IM CPT-4: 80718 11/01/2017 VITAMIN B12 INJECTION CPT-4: J3420 11/01/2017 THER/PROPH/DIAG INJ SC/IM CPT-4: 65993 09/28/2017 VITAMIN B12 INJECTION CPT-4: J3420 09/28/2017 Vital Signs Date Vital 09/21/2018 Blood Pressure 1: 122/74 Code: 8480-6 BMI: 45.5 Code: 67300-1 Heart Rate 1: 79 bpm Height: 5'3" SpO2: 98% Temperature: 36.9 (C ) / 98.5 (F) Weight: 257 lbs 11/01/2017 Heigh t: 5'3" 09/10/2017 Blood Pressure 1: 136/70 Code: 8480-6 BMI: 44.6 Code: 14042-8 Heart Rate 1: 91 bpm Height: 5'3" SpO2: 96% Weight: 252 lbs 10/13/2016 Blood Pressure 1: 134/82 Code: 8480-6 BMI: 43.6 Code: 92391-1 Heart Rate 1: 97 bpm Height: 5'3" SpO2: 97% Weight: 246 lbs 01/14/2016 Blood Pressure 1: 132/78 Code: 8480-6 BMI: 45.7 Code: 21390-1 Heart Rate 1: 90 bpm Height: 5'3" SpO2: 98% Weight: 258 lbs 07/31/2015 Blood Pressure 1: 142/80 Code: 8480-6 BMI: 45.7 Code: 88794-2 Heart Rate 1: 78 bpm Height: 5'3" SpO2: 96% Weight: 258 lbs 04/04/2015 Blood Pressure 1: 130/82 Code: 8480-6 BMI: 44.9 Code: 93088-1 Heart Rate 1: 90 bpm Height: 5'3" SpO2: 96% Weight: 253 lbs 5 oz 03/13/2015 Blood Pressure 1: 140/86 Code: 8480-6 BMI: 45.2 Code: 40619-4 Heart Rate 1: 87 bpm Height: 5'3" [...] of the thyroid 09/10/2017 None hypothyroid [employer]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 PATIENT, LEVEL IV Diagnosis: Acne vulgaris[ICD10: L70.0] Diagnosis: Type 2 diabetes mellitus with hyperglycemia[ICD10: E11.65] Diagnosis: Other specified hypothyroidism[ICD10: E03.8] Anyi Cano MD, [facility] CPT-4: 87570 09/21/2018 93812 EST. PATIENT, LEVEL IV Diagnosis: Excessive and frequent menstruation with irregular cycle[ICD10: N92.1] Diagnosis: Type 2 diabetes mellitus with hyperglycemia[ICD10: E11.65] Diagnosis: Other specified hypothyroidism[ICD10: E03.8] Diagnosis: Other nursing home (current) drug therapy[ICD10: Z79.899] Anyi Cano MD, [facility] CPT-4: 78716 09/10/2017 56227 EST. PATIENT, LEVEL IV Diagnosis: Type 2 diabetes mellitus with hyperglycemia[ICD10: E11.65] Diagnosis: Other specified hypothyroidism[ICD10: E03.8] Diagnosis: Other nursing home (current) drug therapy[ICD10: Z79.899] Diagnosis: Umbilical hernia without obstruction or gangrene[ICD10: K42.9] Anyi Cano MD, [facility] CPT-4: 92272 10/13/2016 91152 EST. PATIENT, LEVEL IV Diagnosis: Other acute sinusitis[ICD10: J01.80] Diagnosis: Other allergic rhinitis[ICD10: J30.89] Diagnosis: Wheezing[ICD10: R06.2] Anyi Cano MD, [facility] CPT-4: 69483 01/14/2016 10784 EST. PATIENT, LEVEL IV Diagnosis: Other nursing home (current) drug therapy[ICD10: Z79.899] Diagnosis: Type 2 diabetes mellitus with hyperglycemia[ICD10: E11.65] Diagnosis: Other specified hypothyroidism[ICD10: E03.8] Diagnosis: Mixed hyperlipidemia[ICD10: E78.2] Anyi Cano MD, [facility] CPT-4: 57234 07/31/2015 ([id number]) 46976 EST. P ATIENT, LEVEL III Diagnosis: Achilles tendinitis, left leg[ICD10: M76.62] Beba Cano MD, [facility] CPT-4: 71847 04/04/2015 ([id number]) OFFICE VISI T, NEW - LEVEL 4 Diagnosis: HYPERLIPIDEMIA[ICD9: 272.4] Diagnosis: DIABETES TYPE II[ICD9: 250.00] Diagnosis: HYPOTHYROIDISM[ICD9: 244.9] Diagnosis: ACHILLES TENDINITIS[ICD9: 726.71] Bbea Cano MD, [facility] CPT-4: 97337 03/13/2015 Plan of Care Planned Activity Notes C odes Status Date Patient Education: Patient Medication Summary Completed 02/01/2019 [...] of control. 09/21/2018 Appointment: Anyi Velázquez WPtel: [address] [place], [place] [id number] (30 min) Complex 09/21/2018 Patient Education: Patient Medication Summary Completed 09/21/2018 Patient Education: Patient Medication Summary Completed 09/19/2018 Appointment: Injection 09/13/2018 Patient Education: Patient Medication Summary Completed 09/13/2018 Appointment: Injection 08/11/2018 Patient Education: Patient Medication Summary Completed 08/11/2018 Appointment: Injection 06/29/2018 Patient Education: Patient Medication Summary Completed 06/29/2018 Patient Education: Patient Medication Summary Completed 04/05/2018 Care Plan: [facility] 79749-1 Pending 04/05/2018 Appointment: Injection 03/23/2018 Patient Education: Patient Medication Summary Completed 03/23/2018 Appointment: Injection 02/07/2018 Patient Education: Patient Medication Summary Completed 02/07/2018 Appointment: Injection 01/13/2018 Patient Education: Patient Medication Summary Completed 01/13/2018 Patient Education: Patient Medication Summary Completed 01/12/2018 Care Plan: [facility] : 53066-2 Pending 01/12/2018 Appointment: Injection 12/06/2017 Patient Education: [...] 09/14/2017 Care Plan: Referral Order SNOMED-CT : [id number] Pending 09/13/2017 Visit Plan: Diabetes Mellitus - [...] or pap done - 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 09/10/2017 Appointment: Anyi Velázquez WPtel: [phone] [facility] (15 min) Moderate 09/10/2017 Patient Education: Patient Medication Summary Completed 09/10/2017 Referral: Arvind Briseno [facility] Referral Completed 10/27/2016 Referral: Arvind Briseno1 [facility] Referral Initiated 10/27/2016 Visit Plan: Umbilical hernia [...] of control. 10/13/2016 Appointment: Anyi Velázquez WPtel: [phone] [facility] (15 min) Moderate 10/13/2016 Patient Education: Patient Medication Summary Completed 10/13/2016 Care Plan: Referral Order SNOMED-CT : [id number] Pending 10/13/2016 Visit Plan: Sinusitis - Pt [...] allergy spray. 01/14/2016 Appointment: [phone] [facility] min[facility] Complex 01/14/2016 Patient Education: [...] not improving. 04/04/2015 Appointment: Beba Cano WPtel: [phone] [facility] (15 min) Moderate 04/04/2015 Patient Education: Patient [...] that appt. 03/13/2015 Appointment: Beba Cano WPtel: [phone] [facility] [place] ([place]) New Patient 03/13/2015 Patient Education: Patient Medication Summary Completed 03/13/2015 Patient Education: Hypertension Completed 03/13/2015 Patient Education: Patient Medication Summary Completed 10/24/2014 Referral: Katia Hunter WPtel: [address] [place], [place] [phone] they will call pt to schedule appt Initiated Referral: Katia Hunter WPtel: [address] [place], [place] [phone] [place] Referral Initiated Referral: Arvind Briseno [address] [facility] Referral Initiated Instructions Comment . Hypothyroidism - p t with chronic [...] Continue with naproxen. Call if not improving. Zyrtec or generic ov er the counter [...] based on previous levels of control. . 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 walk for 30 minutes 3-5 times a [...] based on previous levels of control. . Sinusitis - Pt has acute infection [...]
--- OUTSIDE RECORDS SUMMARY | 2020-01-06 14:38 | XMS REPORT | CCD ---
Author Author Lucia Cano Organization Beba Cano MD, [facility] Address [address] [place] [address] Phone Care Team Providers Care Team Driver Name Role Phone PP Unavailable CCM Unavailable Summary Purpose Interface Exchange Insurance Providers Payer name Policy type / Coverage type Covered republican ID Effective Begin Date Effective End Date WPS Medicare Part B Medicare Part B [id number] Unknown [employer] Better Health in [facility] Part B [id number] Unk nown Family history Father Diagnosis Age [...] employed [employer] 04/04/[address]: 465285011 Never smoker 04/04/[address]: 741061725 Never drinks alcohol 04/04/2015 Has the patient ever used illegal drugs? Unknown Has never used illegal drugs 015 On Disability Unknown Yes 04/04/2015 Allergies, Adverse Reactions, Alerts Substance Reaction Codes Entered Date Inactivated Date Status * NO KNOWN DRUG JANINA RGIES Unknown 03/13/2015 No Inactive Date Active Past Medical History Illness Codes Condition Status Onset Date Resolved Date Acne vulgaris ICD-9: 706.1 ICD-10: L70.0 Active 09/21/2018 Unknown Other half-way (cur rent) drug therapy ICD-9: V58.69 ICD-10: Z79.899 Active 07/30/2015 Unknown Other specified hypo thyroidism ICD-9: 244.9 ICD-10: E03.8 Active 08/01/2015 Unknown Type 2 diabetes jamal itus with hyperglycemia ICD-9: 250.00 ICD-10: E11.65 Active 07/30/2015 Unknown Umbilical hernia wit hout obstruction or gangrene ICD-9: 553.1 ICD-10: K42.9 Active 10/13/2016 Unknown Mixed hyperlipidemia ICD-9: 272.4 ICD-10: E78.2 Active 07/30/2015 Unknown Other vitamin B12 de ficiency anemias ICD-9: 281.1 ICD-10: D51.8 Active 09/28/2017 Unknown Encounter for screen ing mammogram for [...] Condition Codes Effectiv e Dates Condition Status Acne vulgaris ICD-9: 706.1 ICD-10: L70.0 09/21/2018 Active 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 ICD-10: Z79.899 07/30/2015 Active Other specified hypo thyroidism ICD-9: 244.9 ICD-10: E03.8 08/01/2015 Active Type 2 diabetes jamal itus with hyperglycemia ICD-9: 250.00 ICD-10: E11.65 07/30/2015 Active Umbilical hernia wit hout obstruction or gangrene ICD-9: 553.1 ICD-10: K42.9 10/13/2016 Active Mixed hyperlipidemia ICD-9: 272.4 ICD-10: E78.2 07/30/2015 Active Other vitamin B12 de ficiency anemias ICD-9: 281.1 ICD-10: D51.8 09/28/2017 Active Encounter for screen ing mammogram for [...] Date Stop Date Sta tus Fill Instructions naproxen 500 mg tablet RxNorm: 047963 TAKE 1 TABLET BY MOUTH TWICE DAILY 11/15/2018 05/13/2019 Ac tive Generic For:NAPROSYN 500MG 11/15/2018 1 1:09:17 AM N O T I C E Last quantity doesn't match original quantity Farxiga 10 mg tablet RxNorm: 8059840 1 Tablet(s) PO daily 09/21/2018 01/18/[address] of invokana Farxiga 10 mg tablet RxNorm: 2993601 1 Tablet(s) PO daily 09/21/2018 09/20/[address] invokana cyanocobalamin (vit B-12) 1,000 mcg/mL injection solution RxNorm: 767284 Milliliter(s) Inj 09/13/2018 09/13/2018 Inactive cyanocobalamin (vit B-12) 1,000 mcg/mL injection solution RxNorm: 698802 Milliliter(s) Inj 08/11/2018 08/11/2018 Inactive naproxen 500 mg tablet RxNorm: 810295 TAKE 1 TABLET BY MOUTH TWICE DAILY 08/09/2018 11/06/2018 In active Generic For:NAPROSYN 500MG 08/09/2018 1 1:14:27 AM N O T I C E Last quantity doesn't match original quantity levothyroxine 200 mc g tablet RxNorm: 101200 1 Tablet(s) PO daily to take with the 50mcg daily to equal 250mcg daily 07/19/2018 04/14/2019 Active cyanocobalamin (vit B-12) 1,000 mcg/mL injection solution RxNorm: 668596 Milliliter(s) Inj 06/29/2018 06/29/2018 Inactive naproxen 500 mg tablet RxNorm: 346566 TAKE 1 TABLET BY MOUTH TWICE DAILY 05/19/2018 08/08/2018 In active Generic For:NAPROSYN 500MG 05/19/2018 1 0:56:16 AM N O T I C E Last quantity doesn't match original quantity Kenalog 40 mg/mL debora pension for injection RxNorm: 3548343 Milliliter(s) Inj 03/23/2018 03/23/2018 In active levothyroxine 50 mcg tablet RxNorm: 867720 TAKE 1 TABLET BY MOUT H ONCE DAILY WITH 200MCG (250MCG TOTAL) 03/11/2018 06/08/2018 Inactive Generic For:SYNTHROID 50MCG TAB 03/11/2018 9:09:32 AM naproxen 500 mg tablet RxNorm: 357327 TAKE 1 TABLET BY MOUTH TWICE DAILY 02/25/2018 05/18/2018 In active Generic For:NAPROSYN 500MG 02/25/2018 1 2:39:53 PM N O T I C E Last quantity doesn't match original quantity cyanocobalamin (vit B-12) 1,000 mcg/mL injection solution RxNorm: 829874 Milliliter(s) Inj 02/07/2018 02/07/2018 Inactive metformin 1,000 mg t ablet RxNorm: 629309 TAKE 1 TABLET BY MOUT H TWICE A DAY 01/19/2018 01/13/2019 Ac tive Generic For:*GLUCOPHAGE 1000MG 01/20/20 10:20:50 AM cyanocobalamin (vit B-12) 1,000 mcg/mL injection solution RxNorm: 988832 Milliliter(s) Inj 01/13/2018 01/13/2018 Inactive cyanocobalamin (vit B-12) 1,000 mcg/mL injection solution RxNorm: 177982 Milliliter(s) Inj 12/06/2017 12/06/2017 Inactive Invokana 300 mg tablet RxNorm: 2186751 TAKE 1 TABLET BY MOUTH DAILY 11/08/2017 09/20/2018 In active 11/05/2017 5:10:44 PM naproxen 500 mg tablet RxNorm: 452065 TAKE 1 TABLET BY MOUTH TWICE DAILY 11/08/2017 02/05/2018 In active Generic For:NAPROSYN 500MG 11/08/2017 9 :14:56 AM N O T I C E Last quantity doesn't match original quantity Lipitor 40 mg tablet RxNorm: 421871 TAKE 1 TABLET BY MOUTH DAILY 11/08/2017 11/02/2018 Inactive Generic For:LIPITOR 40MG 11/05/2017 5:1 0:24 PM levothyroxine 50 mcg tablet RxNorm: 071772 1 Tablet(s) PO daily to take with the 200mcg daily to equal 250mcg daily 11/08/2017 02/05/2018 Inactive cyanocobalamin (vit B-12) 1,000 mcg/mL injection solution RxNorm: 415267 1 Milliliter(s) Inj 11/01/2017 11/01/2017 Inactive cyanocobalamin (vit B-12) 1,000 mcg/mL injection solution RxNorm: 589080 1 Milliliter(s) Inj 09/28/2017 09/28/2017 Inactive levothyroxine 200 mc g tablet RxNorm: 561151 1 Tablet(s) PO daily to take with the 50mcg daily to equal 250mcg daily 09/14/2017 06/10/2018 Inactive levothyroxine 50 mcg tablet RxNorm: 666372 1 Tablet(s) PO daily to take with the 200mcg daily to equal 250mcg daily 09/14/2017 11/07/2017 Inactive naproxen 500 mg tablet RxNorm: 086027 TAKE 1 TABLET BY MOUTH TWICE DAILY 08/05/2017 11/02/2017 In active Generic For:NAPROSYN 500MG 08/05/2017 9 :04:47 AM N O T I C E Last quantity doesn't match original quantity naproxen 500 mg tablet RxNorm: 765463 TAKE 1 TABLET BY MOUTH TWICE DAILY 04/19/2017 08/04/2017 In active Generic For:NAPROSYN 500MG 04/19/2017 1 :49:28 PM Lipitor 40 mg tablet RxNorm: 192248 TAKE 1 TABLET BY MOUTH DAILY 03/22/2017 11/07/2017 Inactive Generic For:LIPITOR 40MG 03/20/2017 9:0 5:49 AM levothyroxine 25 mcg tablet RxNorm: 912732 1 Tablet(s) PO daily to take with her 200mcg to equal 225 mcg daily 03/22/2017 04/08/2017 Inactive Invokana 300 mg tablet RxNorm: 1890185 TAKE 1 TABLET BY MOUTH DAILY 12/21/2016 09/16/2017 In active 12/21/2016 9:03:03 AM levothyroxine 200 mc g tablet RxNorm: 492437 1 Tablet(s) PO daily 12/21/2016 09/13/2017 Inactive metformin 1,000 mg t ablet RxNorm: 498370 TAKE 1 TABLET BY MOUT H TWICE A DAY 11/26/2016 11/20/2017 In active Generic For:*GLUCOPHAGE 1000MG 11/27/19 1:05:15 PM naproxen 500 mg tablet RxNorm: 615362 1 Tablet(s) PO BID 10/21/2016 04/18/2017 Inactive levothyroxine 25 mcg tablet RxNorm: 154618 1 Tablet(s) PO daily to take with her 200mcg to equal 225 mcg daily 10/13/2016 01/10/2017 Inactive levothyroxine 50 mcg tablet RxNorm: 145728 1 Tablet(s) PO daily 09/21/2016 10/12/2016 Inactive Invokana 300 mg tablet RxNorm: 0834155 1 Tablet(s) PO daily 09/21/2016 12/19/2016 Inactive metformin 1,000 mg t ablet RxNorm: 505150 TAKE 1 TABLET BY MOUT H TWICE A DAY 09/21/2016 11/25/2016 In active Generic For:*GLUCOPHAGE 1000MG 09/22/19 17 8:53:30 AM levothyroxine 200 mc g tablet RxNorm: 667717 1 Tablet(s) PO daily 09/21/2016 12/19/2016 Inactive Lipitor 40 mg tablet RxNorm: 252564 TAKE 1 TABLET BY MOUTH DAILY 06/23/2016 03/19/2017 Inactive Generic For:LIPITOR 40MG 06/23/2016 9:1 2:42 AM levothyroxine 50 mcg tablet RxNorm: 143279 1 Tablet(s) PO daily TAKE 1 TABLET BY MOUTH DAILY 06/23/2016 09/20/2016 Inactive Generic For:SYNTHROID 50MCG TAB 06/23/2016 9:22:58 AM metformin 1,000 mg t ablet RxNorm: 558221 TAKE 1 TABLET BY MOUT H TWICE A DAY 06/23/2016 09/20/2016 In active Generic For:*GLUCOPHAGE 1000MG 06/23/19 17 9:12:46 AM levothyroxine 200 mc g tablet RxNorm: 629650 1 Tablet(s) PO daily 04/24/2016 08/21/2016 Inactive naproxen 500 mg tablet RxNorm: 807980 1 Tablet(s) PO BID 03/26/2016 10/20/2016 Inactive levothyroxine 50 mcg tablet RxNorm: 339117 1 Tablet(s) PO daily 03/25/2016 06/23/2016 Inactive Flonase Allergy Reli ef 50 mcg/actuation nasal spray,suspension RxNorm: 4112627 1 [place] NASAL BID 01/14/2016 No Stop Date Active prednisone 20 mg tablet RxNorm: 531121 2 Tablet(s) PO daily 01/14/2016 01/16/2016 Inactive Zithromax Z-Michael 250 mg tablet RxNorm: 261200 Tablet(s) PO 01/14/2016 02/25/2016 Inactive levothyroxine 200 mc g tablet RxNorm: 162075 1 Tablet(s) PO daily 11/25/2015 03/23/2016 Inactive levothyroxine 50 mcg tablet RxNorm: 550440 1 Tablet(s) PO daily 11/25/2015 03/23/2016 Inactive Invokana 300 mg tablet RxNorm: 2493509 1 Tablet(s) PO daily 11/25/2015 09/20/2016 Inactive metformin 1,000 mg t ablet RxNorm: 455852 TAKE 1 TABLET BY MOUT H TWICE A DAY 08/22/2015 05/17/2016 In active Generic For:*GLUCOPHAGE 1000MG N O T I C E PRESCRIPTION PREVIOUSLY AUTHORIZED BY DOCTOR:PEDRO SIMPSON levothyroxine 200 mc g tablet RxNorm: 026768 1 Tablet(s) PO daily 08/02/2015 11/24/2015 Inactive levothyroxine 25 mcg tablet RxNorm: 660273 1 Tablet(s) PO daily 08/02/2015 11/24/2015 Inactive levothyroxine 25 mcg tablet RxNorm: 347433 1 Tablet(s) PO daily 08/02/2015 08/01/2015 Inactive Zithromax Z-Michael 250 mg tablet RxNorm: 771483 Tablet(s) PO 07/31/2015 10/27/2015 Inactive naproxen 500 mg tablet RxNorm: 462014 1 Tablet(s) PO BID 07/31/2015 02/25/2016 Inactive Lipitor 40 mg tablet RxNorm: 971895 TAKE 1 TABLET BY MOUTH DAILY 05/26/2015 05/19/2016 Inactive Generic For:LIPITOR 40MG 05/25/2015 10: 36:19 AM levothyroxine 200 mc g tablet RxNorm: 198109 TAKE 1 TABLET ONCE DA SUKUMAR WITH 50MCG TABLET TO MAKE 250MCG. 05/26/2015 07/30/2015 Inactive Generic For:SYNTHROID 200MC G TAB 05/25/2015 10:36:11 AM Invokana 100 mg tablet RxNorm: 2446494 1 Tablet(s) PO daily 03/15/2015 03/14/2015 Inactive Invokana 100 mg tablet RxNorm: 8074171 1 Tablet(s) PO daily 03/15/2015 11/24/2015 Inactive naproxen 500 mg tablet RxNorm: 751232 1 Tablet(s) PO BID 03/13/2015 07/30/2015 Inactive metformin 1,000 mg t ablet RxNorm: 409416 1 Tablet(s) PO BID 03/13/2015 08/21/2015 Inactive levothyroxine 200 mc g tablet RxNorm: 777853 TAKE 1 TABLET ONCE DA SUKUMAR WITH 50MCG TABLET TO MAKE 250MCG. 02/12/2015 05/12/2015 Inactive Generic For:SYNTHROID 200MC G TAB 02/12/2015 11:50:50 AM Lipitor 40 mg tablet RxNorm: 747896 TAKE 1 TABLET BY MOUTH DAILY 02/12/2015 05/12/2015 Inactive Generic For:LIPITOR 40MG 02/12/2015 11: 50:55 AM levothyroxine 200 mc g tablet RxNorm: 211062 1 Tablet(s) PO daily 11/19/2014 02/11/2015 Inactive levothyroxine 200 mc g tablet RxNorm: 307413 1 Tablet(s) PO daily 11/19/2014 11/18/2014 Inactive Lipitor 40 mg tablet RxNorm: 305979 1 Tablet(s) PO daily call and make appt. 11/19/2014 02/11/2015 In active Lipitor 40 mg tablet RxNorm: 932336 1 Tablet(s) PO daily call and make appt. 11/15/2014 11/18/2014 In active Lipitor 40 mg tablet RxNorm: 100522 1 Tablet(s) PO daily call and make appt. 11/15/2014 11/14/2014 In active [place] with Iro n oral RxNorm: oral No Start D ate Active Vitamin B-12 1,000 m cg/mL injection solution RxNorm: 581257 1 Milliliter(s) Inj m onthly No Start Date Active levothyroxine 200 mc g tablet RxNorm: 954378 1 Tablet(s) PO daily No Start Date 08/01/2015 Inactive Medication Administered Medication Codes Instruc tions Start Date Status cyanocobalamin (vit B-12) 1,000 mcg/mL injection solut ion RxNorm: 910158 Milliliter 09/13/2018 No longer Active cyanocobalamin (vit B-12) 1,000 mcg/mL injection solut ion RxNorm: 680640 Milliliter 08/11/2018 No longer Active cyanocobalamin (vit B-12) 1,000 mcg/mL injection solut ion RxNorm: 795984 Milliliter 06/29/2018 No longer Active Kenalog 40 mg/mL suspension for injection RxNorm: 6774797 Milliliter 03/23/2018 No longer Active cyanocobalamin (vit B-12) 1,000 mcg/mL injection solut ion RxNorm: 272955 Milliliter 02/07/2018 No longer Active cyanocobalamin (vit B-12) 1,000 mcg/mL injection solut ion RxNorm: 949911 Milliliter 01/13/2018 No longer Active cyanocobalamin (vit B-12) 1,000 mcg/mL injection solut ion RxNorm: 279976 Milliliter 12/06/2017 No longer Active cyanocobalamin (vit B-12) 1,000 mcg/mL injection solut ion RxNorm: 031819 1Milliliter 11/01/2017 No longer Active cyanocobalamin (vit B-12) 1,000 mcg/mL injection solut ion RxNorm: 714429 1Milliliter 09/28/2017 No longer Active Immunizations Vaccine Codes Date Status Influenza CVX: 141 03/21 completed Assessments Condition Codes Effectiv e Dates Type 2 diabetes mellitus with hyperglycemia ICD-10: E11.65 ICD-9: 250.00 09/21/2018 Acne vulgaris ICD-10: L70.0 ICD-9: 706.1 09/21/2018 Other specified hypothyroidism ICD-1 0: E03.8 ICD-9: 244.9 09/21/2018 Mixed hyperlipidemia ICD-10: E78.2 ICD-9: 272.4 09/19/2018 Other vitamin B12 deficiency anemias ICD-10: D51.8 ICD-9: 281.1 09/13/2018 Encounter for screening mammogram for ma lignant neoplasm of breast ICD-10: Z12.31 ICD-9: V76.12 04/05/2018 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) ICD- 10: D50.0 ICD-9: 280.0 09/27/2017 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 ICD-10: 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.899 ICD-9: V58.69 [...] (3rd IS) 0.94 uIU/mL 11/07/2018 Free T4 Xtp755 FREE T4 1.21 ng/dL 11/07/2018 Free T4 Muk004 FREE T4 1.22 ng/dL 09/20/2018 Cbc With [...] 25.0 pg 09/20/2018 Cbc With Differential Ord2 [place]% 8.1 % 09/20/2018 Cbc With Differential Ord2 [...] 1.73 K/ul 09/20/2018 Cbc With Differential Ord2 [place] ABS# 0.8 K/ul 09/20/2018 Cbc With Differential Ord2 Eos ABS# 0.4 K/ul 09/20/2018 Cbc With Differential Ord2 Baso ABS# 0.1 K/ul 09/20/2018 Lipid Ord30 CHOL 176 mg/dL 09/20/2018 Lipid Ord30 HDL 55.0 mg/dl 09/20/2018 Lipid Ord30 TRIG 133 mg/dL 09/20/2018 Lipid Ord30 LDL 94 mg/dL 09/20/2018 Lipid Ord30 C/HDL 3.2 Ratio 09/20/2018 Comp Metabolic Otq006 NA 140 mEq/L 09/20/2018 Comp Metabolic Zcp063 K 4.4 mEq/L 09/20/2018 Comp Metabolic Mcy135 CL 104 mEq/L 09/20/2018 Comp Metabolic Agp092 CO2 27.0 mEq/L 09/20/2018 Comp Metabolic Hkd321 AN ION GAP 13 09/20/2018 Comp Metabolic Dqh859 GL UCOSE 104 mg/dL 09/20/2018 Comp Metabolic Pvs559 Cr eat 0.6 mg/dL 09/20/2018 Comp Metabolic Cay192 eG FR 112 ml/min/1.73m2 07/2018 Comp Metabolic Lpg157 BUN 18 mg/dL 09/20/2018 Comp Metabolic Iea745 B/ C Ratio 29.5 Ratio 09/20/2018 Comp Metabolic Ecs052 CA LCIUM 9.4 mg/dL 09/20/2018 Comp Metabolic Ipy816 AL K PHOS 97 U/L 09/20/2018 Comp Metabolic Xtr329 T(SGOT) 13 U/L 09/20/2018 Comp Metabolic Xkp684 AL T(SGPT) 16 U/L 09/20/2018 Comp Metabolic Enh520 BI LI T 0.2 mg/dL 09/20/2018 Comp Metabolic Psk149 AL BUMIN 4.0 g/dL 09/20/2018 Comp Metabolic Zty196 TP RO 7.0 g/dL 09/20/2018 Comp Metabolic Hxh894 GL OB 3.0 g/dL 09/20/2018 Comp Metabolic Sds433 A/ G Ratio 1.4 Ratio 09/20/2018 Comp Metabolic Ayy268 Os mo 282 mOsmo 09/20/2018 %Hba1C Kqk755 % HbA1c 98233-1 6.6 % 09/20/2018 %Hba1C Bos138 Gluc Ave 143 mg/dL 09/20/2018 Tsh Ord6 TSH (3rd IS) 1.85 uIU/mL 09/20/2018 Hgb & Hct Ord65 HGB 9.7 g/dl 10/06/2017 Hgb & Hct Ord65 HCT 33.5 % 10/06/2017 Hgb & Hct Ord65 HGB 8.6 g/dl 09/24/2017 Hgb & Hct Ord65 HCT 30.4 % 09/24/2017 B12 Sow023 B12 124.00 pg/ml 09/15/2017 Cbc With Differential [...] 20.0 pg 09/15/2017 Cbc With Differential Ord2 [place]% 7.7 % 09/15/2017 Cbc With Differential Ord2 [...] 1.94 K/ul 09/15/2017 Cbc With Differential Ord2 [place] ABS# 0.8 K/ul 09/15/2017 Cbc With Differential Ord2 Eos ABS# 0.5 K/ul 09/15/2017 Cbc With Differential Ord2 Baso ABS# 0.1 K/ul 09/15/2017 Tibc Ord40 Iron 21 ug/dl 09/15/2017 Tibc Ord40 UIBC 432 ug/dL 09/15/2017 Tibc Ord40 TIBC 453 ug/dL 09/15/2017 Tibc Ord40 Fe-%Sat 4.6 % 09/15/2017 Folate Ord36 Folate 15.31 ng/mL 09/15/2017 Ferritin Ord22 FERRITIN 4.3 ng/mL 09/15/2017 Free T4 Zqb840 FREE T4 0.88 ng/dL 09/10/2017 %Hba1C Fcp793 % HbA1c 26619-7 6.7 % 09/10/2017 %Hba1C Mmo431 Gluc Ave 146 mg/dL 09/10/2017 Cbc With [...] 20.5 pg 09/10/2017 Cbc With Differential Ord2 [place]% 8.0 % 09/10/2017 Cbc With Differential Ord2 [...] 2.10 K/ul 09/10/2017 Cbc With Differential Ord2 [place] ABS# 0.7 K/ul 09/10/2017 Cbc With Differential Ord2 Eos ABS# 0.5 K/ul 09/10/2017 Cbc With Differential Ord2 Baso ABS# 0.0 K/ul 09/10/2017 Comp Metabolic Pqu164 NA 139 mEq/L 09/10/2017 Comp Metabolic Wua053 K 4.6 mEq/L 09/10/2017 Comp Metabolic Agu791 CL 103 mEq/L 09/10/2017 Comp Metabolic Bab711 CO2 28.0 mEq/L 09/10/2017 Comp Metabolic Vng376 AN ION GAP 13 09/10/2017 Comp Metabolic Zcj349 GL UCOSE 91 mg/dL 09/10/2017 Comp Metabolic Pcw738 Cr eat 0.6 mg/dL 09/10/2017 Comp Metabolic Zpv899 eG FR 117 ml/min/1.73m2 08/20 Comp Metabolic Xew046 BUN 22 mg/dL 09/10/2017 Comp Metabolic Ouc693 B/ C Ratio 37.3 Ratio 09/10/2017 Comp Metabolic Dpm997 CA LCIUM 9.6 mg/dL 09/10/2017 Comp Metabolic Kvo410 AL K PHOS 100 U/L 09/10/2017 Comp Metabolic Lfl404 T(SGOT) 12 U/L 09/10/2017 Comp Metabolic Pmi496 AL T(SGPT) 13 U/L 09/10/2017 Comp Metabolic Ond071 BI LI T 0.2 mg/dL 09/10/2017 Comp Metabolic Xsw525 AL BUMIN 3.9 g/dL 09/10/2017 Comp Metabolic Lcp461 TP RO 7.0 g/dL 09/10/2017 Comp Metabolic Thk788 GL OB 3.1 g/dL 09/10/2017 Comp Metabolic Xex078 A/ G Ratio 1.3 Ratio 09/10/2017 Comp Metabolic Yeq139 Os mo 280 mOsmo 09/10/2017 Tsh Ord6 TSH (3rd IS) 6.83 uIU/mL 09/10/2017 Free T4 Fkj550 FREE T4 1.53 ng/dL 04/07/2017 Tsh Ord6 hTSH II 0.55 uIU/mL 04/07/2017 Tsh Ord6 hTSH II 0.55 uIU/mL 12/30/2016 Free T4 Ayx956 FREE T4 1.15 ng/dL 12/30/2016 %Hba1C Kfi988 % HbA1c 35369-6 6.0 % 10/01/2016 %Hba1C Kaq133 Gluc Ave 126 mg/dL 10/01/2016 Tsh Ord6 hTSH II 0.19 uIU/mL 10/01/2016 Comp Metabolic Lex228 NA 139 mEq/L 10/01/2016 Comp Metabolic Hja142 K 4.6 mEq/L 10/01/2016 Comp Metabolic Hpm349 CL 102 mEq/L 10/01/2016 Comp Metabolic Mpd023 CO2 28.0 mEq/L 10/01/2016 Comp Metabolic Szx132 AN ION GAP 14 10/01/2016 Comp Metabolic Yuy043 GL UCOSE 93 mg/dL 10/01/2016 Comp Metabolic Coa167 Cr eat 0.6 mg/dL 10/01/2016 Comp Metabolic Lnz061 eG FR 109 ml/min/1.73m2 09/19 Comp Metabolic Oxu444 BUN 20 mg/dL 10/01/2016 Comp Metabolic Cmz475 B/ C Ratio 31.7 Ratio 10/01/2016 Comp Metabolic Cwr306 CA LCIUM 9.8 mg/dL 10/01/2016 Comp Metabolic Uil333 AL K PHOS 114 U/L 10/01/2016 Comp Metabolic Vln244 T(SGOT) 11 U/L 10/01/2016 Comp Metabolic Wfk652 AL T(SGPT) 12 U/L 10/01/2016 Comp Metabolic Vdj027 BI LI T 0.4 mg/dL 10/01/2016 Comp Metabolic Cxf064 AL BUMIN 4.3 g/dL 10/01/2016 Comp Metabolic Fbo053 TP RO 7.2 g/dL 10/01/2016 Comp Metabolic Emt006 GL OB 2.9 g/dL 10/01/2016 Comp Metabolic Uic921 A/ G Ratio 1.5 Ratio 10/01/2016 Comp Metabolic Tiv730 Os mo 280 mOsmo 10/01/2016 Free T4 Avy389 FREE T4 1.37 ng/dL 10/01/2016 Lipid Ord30 [...] 27.9 pg 10/01/2016 Cbc With Differential Ord2 [place]% 8.5 % 10/01/2016 Cbc With Differential Ord2 [...] 1.69 K/ul 10/01/2016 Cbc With Differential Ord2 [place] ABS# 0.7 K/ul 10/01/2016 Cbc With Differential [...] 22.7 pg 04/06/2016 Cbc With Differential Ord2 [place]% 8.2 % 04/06/2016 Cbc With Differential Ord2 [...] 1.48 K/ul 04/06/2016 Cbc With Differential Ord2 [place] ABS# 0.5 K/ul 04/06/2016 Cbc With Differential Ord2 Eos ABS# 0.4 K/ul 04/06/2016 Cbc With Differential Ord2 Baso ABS# 0.0 K/ul 04/06/2016 Ferritin Ord22 FERRITIN 5.8 ng/mL 04/06/2016 Free T4 Wnr611 FREE T4 1.16 ng/dL 03/16/2016 %Hba1C Qqh996 % HbA1c 98849-7 7.0 % 03/16/2016 %Hba1C Nah676 Gluc Ave 154 mg/dL 03/16/2016 Cbc With [...] 23.2 pg 03/16/2016 Cbc With Differential Ord2 [place]% 4.8 % 03/16/2016 Cbc With Differential Ord2 [...] 1.75 K/ul 03/16/2016 Cbc With Differential Ord2 [place] ABS# 0.6 K/ul 03/16/2016 Cbc With Differential Ord2 Eos ABS# 0.4 K/ul 03/16/2016 Cbc With Differential Ord2 Baso ABS# 0.0 K/ul 03/16/2016 Tsh Ord6 hTSH II 1.39 uIU/mL 03/16/2016 Tsh Ord6 hTSH II 10.28 uIU/mL 11/14/2015 Free T4 Vsf257 FREE T4 0.79 ng/dL 11/14/2015 Lipid Ord30 [...] 24.4 pg 11/14/2015 Cbc With Differential Ord2 [place]% 6.6 % 11/14/2015 Cbc With Differential Ord2 [...] 1.72 K/ul 11/14/2015 Cbc With Differential Ord2 [place] ABS# 0.8 K/ul 11/14/2015 Cbc With Differential Ord2 Eos ABS# 0.4 K/ul 11/14/2015 Cbc With Differential Ord2 Baso ABS# 0.0 K/ul 11/14/2015 Comp Metabolic Cur212 NA 136 mEq/L 11/14/2015 Comp Metabolic Jgs545 K 4.4 mEq/L 11/14/2015 Comp Metabolic Kzn802 CL 101 mEq/L 11/14/2015 Comp Metabolic Xax285 CO2 27.0 mEq/L 11/14/2015 Comp Metabolic Mzd236 AN ION GAP 12 11/14/2015 Comp Metabolic Tax668 GL UCOSE 107 mg/dL 11/14/2015 Comp Metabolic Vix327 Cr eat 0.6 mg/dL 11/14/2015 Comp Metabolic Lpz376 eG FR 125 ml/min/1.73m2 10/20 Comp Metabolic Tuo863 BUN 14 mg/dL 11/14/2015 Comp Metabolic Czc698 B/ C Ratio 25.0 Ratio 11/14/2015 Comp Metabolic Jfz347 CA LCIUM 9.6 mg/dL 11/14/2015 Comp Metabolic Mri281 AL K PHOS 104 U/L 11/14/2015 Comp Metabolic Yeu477 T(SGOT) 16 U/L 11/14/2015 Comp Metabolic Yoq574 AL T(SGPT) 14 U/L 11/14/2015 Comp Metabolic Mil836 BI LI T 0.3 mg/dL 11/14/2015 Comp Metabolic Uej178 AL BUMIN 4.0 g/dL 11/14/2015 Comp Metabolic Giw125 TP RO 7.2 g/dL 11/14/2015 Comp Metabolic Anf636 GL OB 3.2 g/dL 11/14/2015 Comp Metabolic Vxz446 A/ G Ratio 1.3 Ratio 11/14/2015 Comp Metabolic Oyn945 Os mo 273 mOsmo 11/14/2015 %Hba1C Dmk702 % HbA1c 25011-2 7.0 % 11/14/2015 %Hba1C Teu450 Gluc Ave 154 mg/dL 11/14/2015 Free T4 Djh506 FREE T4 0.49 ng/dL 08/02/2015 Tsh Ord6 hTSH II 44.41 uIU/mL 07/31/2015 %Hba1C Wch891 % HbA1c 98263-5 6.7 % 07/31/2015 %Hba1C Cip617 Gluc Ave 146 mg/dL 07/31/2015 Cbc With [...] Differential Ord2 RDW 14.9 % 03/13/2015 %Hba1C Tjd385 % HbA1c 36987-8 6.8 % 03/13/2015 %Hba1C Gxu951 Gluc Ave 148 mg/dL 03/13/2015 Tsh Ord6 hTSH II 0.95 uIU/mL 03/13/2015 Lipid Ord30 CHOL 146 mg/dL 03/13/2015 Lipid Ord30 HDL 40.0 mg/dl 03/13/2015 Lipid Ord30 TRIG 137 mg/dL 03/13/2015 Lipid Ord30 LDL 79 mg/dL 03/13/2015 Lipid Ord30 C/HDL 3.7 Ratio 03/13/2015 Comp Metabolic Qft165 NA 135 mEq/L 03/13/2015 Comp Metabolic Iaz445 K 4.5 mEq/L 03/13/2015 Comp Metabolic Tpl072 CL 99 mEq/L 03/13/2015 Comp Metabolic Zfh608 CO2 29.0 mEq/L 03/13/2015 Comp Metabolic Ozp072 AN ION GAP 12 03/13/2015 Comp Metabolic Azo434 GL UCOSE 98 mg/dL 03/13/2015 Comp Metabolic Uou061 Cr eat 0.7 mg/dL 03/13/2015 Comp Metabolic Smr364 eG FR 100 ml/min/1.73m2 02/20 Comp Metabolic Hca837 BUN 13 mg/dL 03/13/2015 Comp Metabolic Xau315 B/ C Ratio 19.1 Ratio 03/13/2015 Comp Metabolic Zvf769 CA LCIUM 9.8 mg/dL 03/13/2015 Comp Metabolic Cio624 AL K PHOS 91 U/L 03/13/2015 Comp Metabolic Jec625 T(SGOT) 10 U/L 03/13/2015 Comp Metabolic Eff124 AL T(SGPT) 10 U/L 03/13/2015 Comp Metabolic Ihe955 BI LI T 0.4 mg/dL 03/13/2015 Comp Metabolic Fbk657 AL BUMIN 4.1 g/dL 03/13/2015 Comp Metabolic Uqr953 TP RO 6.9 g/dL 03/13/2015 Comp Metabolic Wdk418 GL OB 2.8 g/dL 03/13/2015 Comp Metabolic Yil083 A/ G Ratio 1.5 Ratio 03/13/2015 Comp Metabolic Muf025 Os mo 270 mOsmo 03/13/2015 Free T4 Vsk046 FREE T4 1.25 ng/dL 03/13/2015 Review of [...] Procedure Codes Date THER/PROPH/DIAG INJ SC/IM CPT-4: 21895 09/13/2018 VITAMIN B12 INJECTION CPT-4: J3420 09/13/2018 THER/PROPH/DIAG INJ SC/IM CPT-4: 77950 08/11/2018 VITAMIN B12 INJECTION CPT-4: J3420 08/11/2018 THER/PROPH/DIAG INJ SC/IM CPT-4: 91788 06/29/2018 THER/PROPH/DIAG INJ SC/IM CPT-4: 43008 03/23/2018 VITAMIN B12 INJECTION CPT-4: J3420 03/23/2018 THER/PROPH/DIAG INJ SC/IM CPT-4: 93643 02/07/2018 VITAMIN B12 INJECTION CPT-4: J3420 02/07/2018 THER/PROPH/DIAG INJ SC/IM CPT-4: 33764 01/13/2018 VITAMIN B12 INJECTION CPT-4: J3420 01/13/2018 VITAMIN B12 INJECTION CPT-4: J3420 12/06/2017 THER/PROPH/DIAG INJ SC/IM CPT-4: 58081 12/06/2017 THER/PROPH/DIAG INJ SC/IM CPT-4: 82339 11/01/2017 VITAMIN B12 INJECTION CPT-4: J3420 11/01/2017 THER/PROPH/DIAG INJ SC/IM CPT-4: 02209 09/28/2017 VITAMIN B12 INJECTION CPT-4: J3420 09/28/2017 Vital Signs Date Vital 09/21/2018 Blood Pressure 1: 122/74 Code: 8480-6 BMI: 45.5 Code: 23679-9 Heart Rate 1: 79 bpm Height: 5'3" SpO2: 98% Temperature: 36.9 (C ) / 98.5 (F) Weight: 257 lbs 11/01/2017 Heigh t: 5'3" 09/10/2017 Blood Pressure 1: 136/70 Code: 8480-6 BMI: 44.6 Code: 62410-2 Heart Rate 1: 91 bpm Height: 5'3" SpO2: 96% Weight: 252 lbs 10/13/2016 Blood Pressure 1: 134/82 Code: 8480-6 BMI: 43.6 Code: 77610-6 Heart Rate 1: 97 bpm Height: 5'3" SpO2: 97% Weight: 246 lbs 01/14/2016 Blood Pressure 1: 132/78 Code: 8480-6 BMI: 45.7 Code: 01485-9 Heart Rate 1: 90 bpm Height: 5'3" SpO2: 98% Weight: 258 lbs 07/31/2015 Blood Pressure 1: 142/80 Code: 8480-6 BMI: 45.7 Code: 33973-5 Heart Rate 1: 78 bpm Height: 5'3" SpO2: 96% Weight: 258 lbs 04/04/2015 Blood Pressure 1: 130/82 Code: 8480-6 BMI: 44.9 Code: 27175-8 Heart Rate 1: 90 bpm Height: 5'3" SpO2: 96% Weight: 253 lbs 5 oz 03/13/2015 Blood Pressure 1: 140/86 Code: 8480-6 BMI: 45.2 Code: 90087-8 Heart Rate 1: 87 bpm Height: 5'3" [...] of the thyroid 09/10/2017 None 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 PATIENT, LEVEL IV Diagnosis: Acne vulgaris[ICD10: L70.0] Diagnosis: Type 2 diabetes mellitus with hyperglycemia[ICD10: E11.65] Diagnosis: Other specified hypothyroidism[ICD10: E03.8] Anyi Cano MD, [facility] CPT-4: 37130 09/21/2018 [id number] EST. 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 PATIENT, LEVEL IV Diagnosis: Other acute sinusitis[ICD10: J01.80] Diagnosis: Other allergic rhinitis[ICD10: J30.89] Diagnosis: Wheezing[ICD10: R06.2] Anyi Cano MD, [facility] CPT-4: 08616 01/14/2016 94733 EST. 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 P ATIENT, LEVEL III Diagnosis: Achilles tendinitis, left leg[ICD10: M76.62] Beba Cano MD, [facility] CPT-4: 84986 04/04/2015 ([id number]) OFFICE VISI T, NEW - LEVEL 4 Diagnosis: HYPERLIPIDEMIA[ICD9: 272.4] Diagnosis: DIABETES TYPE II[ICD9: 250.00] Diagnosis: HYPOTHYROIDISM[ICD9: 244.9] Diagnosis: ACHILLES TENDINITIS[ICD9: 726.71] Beba Cano MD, [facility] CPT-4: 12227 03/13/2015 Plan of Care Planned Activity Notes C odes Status Date Visit Plan: Open Comedo - debris re [...] control. 09/21/2018 App[facility]ment: [phone] [facility] ([facility] 09/21/2018 Patient Education: Patient Medication Summary Completed 09/21/2018 Patient Education: Patient Medication Summary Completed 09/19/2018 Appointment: Injection 09/13/2018 Patient Education: Patient Medication Summary Completed 09/13/2018 Appointment: Injection 08/11/2018 Patient Education: Patient Medication Summary Completed 08/11/2018 Appointment: Injection 06/29/2018 Patient Education: Patient Medication Summary Completed 06/29/2018 Patient Education: Patient Medication Summary Completed 04/05/2018 Care Plan: SCREENINGMAMMOGRAPHYDIGITAL [facility] : 58694-6 Pending 04/05/2018 Appointment: Injection 03/23/2018 Patient Education: Patient Medication Summary Completed 03/23/2018 Appointment: Injection 02/07/2018 Patient Education: Patient Medication Summary Completed 02/07/2018 Appointment: Injection 01/13/2018 Patient Education: Patient Medication Summary Completed 01/13/2018 Patient Education: Patient Medication Summary Completed 01/12/2018 Care Plan[facility] 316[facility] Pending 01/12/2018 Appointment: Injection 12/06/2017 Patient Education: [...] 09/14/2017 Care Plan: Referral Order SNOMED-CT : [id number] Pending 09/13/2017 Visit Plan: Diabetes Mellitus - [...] or pap done - 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 09/10/2017 Appointment: Anyi Velázquez WPtel: [facility] (15 min) Moderate 09/10/2017 Patient Education: Patient Medication Summary Completed 09/10/2017 Referral: Arvind Briseno [address] [facility] Referral Completed 10/27/2016 Referral: Arvind Briseno [facility] Referral Initiated 10/27/2016 Visit Plan: [...] control. 10/13/2016 Appointment: Anyi Velázquez WPtel: [phone] [facility] (15 min) Moderate 10/13/2016 Patient Education: Patient Medication Summary Completed 10/13/2016 Care Plan: Referral Order SNOMED-CT : [id number] Pending 10/13/2016 Visit Plan: Sinusitis - Pt [...] spray. 01/14/2016 Appointment: Melissa Newman WPtel: [phone] [facility] (30 min) Complex 01/14/2016 Patient Education: Patient [...] not improving. 04/04/2015 Appointment: Beba Cano WPtel: [facility] ([facility] Moderate 04/04/2015 Patient Education: [...] appt. 03/13/2015 Appointment: Beba Cano WPtel: [phone] [facility] [place] ([place]) New Patient 03/13/2015 Patient Education: Patient Medication Summary Completed 03/13/2015 Patient Education: Hypertension Completed 03/13/2015 Patient Education: Patient Medication Summary Completed 10/24/2014 Referral: Katia Hunter WPtel: [address] [place] [address] they will call pt to schedule appt Initiated Referral: Katia Hunter WPtel: [address] [place] [address] Referral Initiated Referral: Arvind Briseno [address] [place] [address] Referral Initiated Instructions Comment . Sinusitis - [...] or pap done - will refer to UNIT MANAGER [employer]ORES due to pt symptoms and difficulty for [...]
--- OUTSIDE RECORDS SUMMARY | 2020-01-06 14:38 | XMS REPORT | CCD ---
Author Author Lucia Cano Organization Beba Cano MD, [facility] Address [address] [place] [address] Phone Care Team Providers Care Activities Therapist Name Role Phone PP Unavailable CCM Unavailable Summary Purpose Interface Exchange Insurance Providers Payer name Policy type / Coverage type Covered alliance party ID Effective Begin Date Effective End Date WPS Medicare Part B Medicare Part B [id number] Unknown [employer] Better Health in [facility] Part B [id number] Unk nown Family history Father Diagnosis Age [...] employed [employer] 04/04/[address]: 362155996 Never smoker 04/04/[address]: 259528786 Never drinks alcohol 04/04/2015 Has the patient [...] 706.1 ICD-10: L70.0 Active 09/21/2018 Unknown Other chcf (cur rent) drug therapy ICD-9: V58.69 ICD-10: [...] ICD-9: 706.1 ICD-10: L70.0 09/21/2018 Active 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 ICD-9: V58.69 ICD-10: [...] Date Stop Date Sta tus Fill Instructions Lipitor 40 mg tablet RxNorm: 050387 TAKE 1 TABLET BY MOUTH DAILY 12/13/2018 12/07/2019 Active Generic For:LIPITOR 40MG 12/13/2018 9:1 7:44 AM naproxen 500 mg tablet RxNorm: 319903 TAKE 1 TABLET BY MOUTH TWICE DAILY 11/15/2018 05/13/2019 Ac tive Generic For:NAPROSYN 500MG 11/15/2018 1 1:09:17 AM N O T I C E Last quantity doesn't match original quantity Farxiga 10 mg tablet RxNorm: 2979420 1 Tablet(s) PO daily 09/21/2018 01/18/[address] of invokana Farxiga 10 mg tablet RxNorm: 0574474 1 Tablet(s) PO daily 09/21/2018 09/20/[address] invokana cyanocobalamin (vit B-12) 1,000 mcg/mL injection solution RxNorm: 568828 Milliliter(s) Inj 09/13/2018 09/13/2018 Inactive cyanocobalamin (vit B-12) 1,000 mcg/mL injection solution RxNorm: 344745 Milliliter(s) Inj 08/11/2018 08/11/2018 Inactive naproxen 500 mg tablet RxNorm: 891543 TAKE 1 TABLET BY MOUTH TWICE DAILY 08/09/2018 11/06/2018 In active Generic For:NAPROSYN 500MG 08/09/2018 1 1:14:27 AM N O T I C E Last quantity doesn't match original quantity levothyroxine 200 mc g tablet RxNorm: 037229 1 Tablet(s) PO daily to take with the 50mcg daily to equal 250mcg daily 07/19/2018 04/14/2019 Active cyanocobalamin (vit B-12) 1,000 mcg/mL injection solution RxNorm: 444791 Milliliter(s) Inj 06/29/2018 06/29/2018 Inactive naproxen 500 mg tablet RxNorm: 025400 TAKE 1 TABLET BY MOUTH TWICE DAILY 05/19/2018 08/08/2018 In active Generic For:NAPROSYN 500MG 05/19/2018 1 0:56:16 AM N O T I C E Last quantity doesn't match original quantity Kenalog 40 mg/mL debora pension for injection RxNorm: 6257022 Milliliter(s) Inj 03/23/2018 03/23/2018 In active levothyroxine 50 mcg tablet RxNorm: 437818 TAKE 1 TABLET BY MOUT H ONCE DAILY WITH 200MCG (250MCG TOTAL) 03/11/2018 06/08/2018 Inactive Generic For:SYNTHROID 50MCG TAB 03/11/2018 9:09:32 AM naproxen 500 mg tablet RxNorm: 303528 TAKE 1 TABLET BY MOUTH TWICE DAILY 02/25/2018 05/18/2018 In active Generic For:NAPROSYN 500MG 02/25/2018 1 2:39:53 PM N O T I C E Last quantity doesn't match original quantity cyanocobalamin (vit B-12) 1,000 mcg/mL injection solution RxNorm: 763007 Milliliter(s) Inj 02/07/2018 02/07/2018 Inactive metformin 1,000 mg t ablet RxNorm: 154113 TAKE 1 TABLET BY MOUT H TWICE A DAY 01/19/2018 01/13/2019 Ac tive Generic For:*GLUCOPHAGE 1000MG 01/20/20 10:20:50 AM cyanocobalamin (vit B-12) 1,000 mcg/mL injection solution RxNorm: 130063 Milliliter(s) Inj 01/13/2018 01/13/2018 Inactive cyanocobalamin (vit B-12) 1,000 mcg/mL injection solution RxNorm: 809803 Milliliter(s) Inj 12/06/2017 12/06/2017 Inactive Invokana 300 mg tablet RxNorm: 6594072 TAKE 1 TABLET BY MOUTH DAILY 11/08/2017 09/20/2018 In active 11/05/2017 5:10:44 PM naproxen 500 mg tablet RxNorm: 645305 TAKE 1 TABLET BY MOUTH TWICE DAILY 11/08/2017 02/05/2018 In active Generic For:NAPROSYN 500MG 11/08/2017 9 :14:56 AM N O T I C E Last quantity doesn't match original quantity Lipitor 40 mg tablet RxNorm: 276290 TAKE 1 TABLET BY MOUTH DAILY 11/08/2017 11/02/2018 Inactive Generic For:LIPITOR 40MG 11/05/2017 5:1 0:24 PM levothyroxine 50 mcg tablet RxNorm: 081787 1 Tablet(s) PO daily to take with the 200mcg daily to equal 250mcg daily 11/08/2017 02/05/2018 Inactive cyanocobalamin (vit B-12) 1,000 mcg/mL injection solution RxNorm: 945158 1 Milliliter(s) Inj 11/01/2017 11/01/2017 Inactive cyanocobalamin (vit B-12) 1,000 mcg/mL injection solution RxNorm: 129592 1 Milliliter(s) Inj 09/28/2017 09/28/2017 Inactive levothyroxine 200 mc g tablet RxNorm: 009336 1 Tablet(s) PO daily to take with the 50mcg daily to equal 250mcg daily 09/14/2017 06/10/2018 Inactive levothyroxine 50 mcg tablet RxNorm: 171499 1 Tablet(s) PO daily to take with the 200mcg daily to equal 250mcg daily 09/14/2017 11/07/2017 Inactive naproxen 500 mg tablet RxNorm: 535189 TAKE 1 TABLET BY MOUTH TWICE DAILY 08/05/2017 11/02/2017 In active Generic For:NAPROSYN 500MG 08/05/2017 9 :04:47 AM N O T I C E Last quantity doesn't match original quantity naproxen 500 mg tablet RxNorm: 511800 TAKE 1 TABLET BY MOUTH TWICE DAILY 04/19/2017 08/04/2017 In active Generic For:NAPROSYN 500MG 04/19/2017 1 :49:28 PM Lipitor 40 mg tablet RxNorm: 165486 TAKE 1 TABLET BY MOUTH DAILY 03/22/2017 11/07/2017 Inactive Generic For:LIPITOR 40MG 03/20/2017 9:0 5:49 AM levothyroxine 25 mcg tablet RxNorm: 026529 1 Tablet(s) PO daily to take with her 200mcg to equal 225 mcg daily 03/22/2017 04/08/2017 Inactive Invokana 300 mg tablet RxNorm: 1444691 TAKE 1 TABLET BY MOUTH DAILY 12/21/2016 09/16/2017 In active 12/21/2016 9:03:03 AM levothyroxine 200 mc g tablet RxNorm: 863136 1 Tablet(s) PO daily 12/21/2016 09/13/2017 Inactive metformin 1,000 mg t ablet RxNorm: 839826 TAKE 1 TABLET BY MOUT H TWICE A DAY 11/26/2016 11/20/2017 In active Generic For:*GLUCOPHAGE 1000MG 11/27/19 17 1:05:15 PM naproxen 500 mg tablet RxNorm: 123859 1 Tablet(s) PO BID 10/21/2016 04/18/2017 Inactive levothyroxine 25 mcg tablet RxNorm: 051421 1 Tablet(s) PO daily to take with her 200mcg to equal 225 mcg daily 10/13/2016 01/10/2017 Inactive levothyroxine 50 mcg tablet RxNorm: 920776 1 Tablet(s) PO daily 09/21/2016 10/12/2016 Inactive Invokana 300 mg tablet RxNorm: 5892894 1 Tablet(s) PO daily 09/21/2016 12/19/2016 Inactive metformin 1,000 mg t ablet RxNorm: 579571 TAKE 1 TABLET BY MOUT H TWICE A DAY 09/21/2016 11/25/2016 In active Generic For:*GLUCOPHAGE 1000MG 09/22/19 17 8:53:30 AM levothyroxine 200 mc g tablet RxNorm: 003395 1 Tablet(s) PO daily 09/21/2016 12/19/2016 Inactive Lipitor 40 mg tablet RxNorm: 099757 TAKE 1 TABLET BY MOUTH DAILY 06/23/2016 03/19/2017 Inactive Generic For:LIPITOR 40MG 06/23/2016 9:1 2:42 AM levothyroxine 50 mcg tablet RxNorm: 979478 1 Tablet(s) PO daily TAKE 1 TABLET BY MOUTH DAILY 06/23/2016 09/20/2016 Inactive Generic For:SYNTHROID 50MCG TAB 06/23/2016 9:22:58 AM metformin 1,000 mg t ablet RxNorm: 969874 TAKE 1 TABLET BY MOUT H TWICE A DAY 06/23/2016 09/20/2016 In active Generic For:*GLUCOPHAGE 1000MG 06/23/19 17 9:12:46 AM levothyroxine 200 mc g tablet RxNorm: 116048 1 Tablet(s) PO daily 04/24/2016 08/21/2016 Inactive naproxen 500 mg tablet RxNorm: 316425 1 Tablet(s) PO BID 03/26/2016 10/20/2016 Inactive levothyroxine 50 mcg tablet RxNorm: 446957 1 Tablet(s) PO daily 03/25/2016 06/23/2016 Inactive Flonase Allergy Reli ef 50 mcg/actuation nasal spray,suspension RxNorm: 1092357 1 [place] NASAL BID 01/14/2016 No Stop Date Active prednisone 20 mg tablet RxNorm: 628381 2 Tablet(s) PO daily 01/14/2016 01/16/2016 Inactive Zithromax Z-Michael 250 mg tablet RxNorm: 030581 Tablet(s) PO 01/14/2016 02/25/2016 Inactive levothyroxine 200 mc g tablet RxNorm: 446716 1 Tablet(s) PO daily 11/25/2015 03/23/2016 Inactive levothyroxine 50 mcg tablet RxNorm: 214704 1 Tablet(s) PO daily 11/25/2015 03/23/2016 Inactive Invokana 300 mg tablet RxNorm: 3702097 1 Tablet(s) PO daily 11/25/2015 09/20/2016 Inactive metformin 1,000 mg t ablet RxNorm: 404928 TAKE 1 TABLET BY MOUT H TWICE A DAY 08/22/2015 05/17/2016 In active Generic For:*GLUCOPHAGE 1000MG N O T I C E PRESCRIPTION PREVIOUSLY AUTHORIZED BY DOCTOR:PEDRO SIMPSON levothyroxine 200 mc g tablet RxNorm: 641216 1 Tablet(s) PO daily 08/02/2015 11/24/2015 Inactive levothyroxine 25 mcg tablet RxNorm: 213024 1 Tablet(s) PO daily 08/02/2015 11/24/2015 Inactive levothyroxine 25 mcg tablet RxNorm: 943376 1 Tablet(s) PO daily 08/02/2015 08/01/2015 Inactive Zithromax Z-Michael 250 mg tablet RxNorm: 672238 Tablet(s) PO 07/31/2015 10/27/2015 Inactive naproxen 500 mg tablet RxNorm: 869843 1 Tablet(s) PO BID 07/31/2015 02/25/2016 Inactive Lipitor 40 mg tablet RxNorm: 946464 TAKE 1 TABLET BY MOUTH DAILY 05/26/2015 05/19/2016 Inactive Generic For:LIPITOR 40MG 05/25/2015 10: 36:19 AM levothyroxine 200 mc g tablet RxNorm: 640927 TAKE 1 TABLET ONCE DA SUKUMAR WITH 50MCG TABLET TO MAKE 250MCG. 05/26/2015 07/30/2015 Inactive Generic For:SYNTHROID 200MC G TAB 05/25/2015 10:36:11 AM Invokana 100 mg tablet RxNorm: 4184516 1 Tablet(s) PO daily 03/15/2015 03/14/2015 Inactive Invokana 100 mg tablet RxNorm: 3029374 1 Tablet(s) PO daily 03/15/2015 11/24/2015 Inactive naproxen 500 mg tablet RxNorm: 494575 1 Tablet(s) PO BID 03/13/2015 07/30/2015 Inactive metformin 1,000 mg t ablet RxNorm: 264368 1 Tablet(s) PO BID 03/13/2015 08/21/2015 Inactive levothyroxine 200 mc g tablet RxNorm: 560635 TAKE 1 TABLET ONCE DA SUKUMAR WITH 50MCG TABLET TO MAKE 250MCG. 02/12/2015 05/12/2015 Inactive Generic For:SYNTHROID 200MC G TAB 02/12/2015 11:50:50 AM Lipitor 40 mg tablet RxNorm: 900656 TAKE 1 TABLET BY MOUTH DAILY 02/12/2015 05/12/2015 Inactive Generic For:LIPITOR 40MG 02/12/2015 11: 50:55 AM levothyroxine 200 mc g tablet RxNorm: 145037 1 Tablet(s) PO daily 11/19/2014 02/11/2015 Inactive levothyroxine 200 mc g tablet RxNorm: 446376 1 Tablet(s) PO daily 11/19/2014 11/18/2014 Inactive Lipitor 40 mg tablet RxNorm: 698650 1 Tablet(s) PO daily call and make appt. 11/19/2014 02/11/2015 In active Lipitor 40 mg tablet RxNorm: 448259 1 Tablet(s) PO daily call and make appt. 11/15/2014 11/18/2014 In active Lipitor 40 mg tablet RxNorm: 222935 1 Tablet(s) PO daily call and make appt. 11/15/2014 11/14/2014 In active [place] with Iro n oral RxNorm: oral No Start D ate Active Vitamin B-12 1,000 m cg/mL injection solution RxNorm: 902443 1 Milliliter(s) Inj m onthly No Start Date Active levothyroxine 200 mc g tablet RxNorm: 156880 1 Tablet(s) PO daily No Start Date 08/01/2015 Inactive Medication Administered Medication Codes Instruc tions Start Date Status cyanocobalamin (vit B-12) 1,000 mcg/mL injection solut ion RxNorm: 574962 Milliliter 09/13/2018 No longer Active cyanocobalamin (vit B-12) 1,000 mcg/mL injection solut ion RxNorm: 018055 Milliliter 08/11/2018 No longer Active cyanocobalamin (vit B-12) 1,000 mcg/mL injection solut ion RxNorm: 183128 Milliliter 06/29/2018 No longer Active Kenalog 40 mg/mL suspension for injection RxNorm: 0681749 Milliliter 03/23/2018 No longer Active cyanocobalamin (vit B-12) 1,000 mcg/mL injection solut ion RxNorm: 883093 Milliliter 02/07/2018 No longer Active cyanocobalamin (vit B-12) 1,000 mcg/mL injection solut ion RxNorm: 206415 Milliliter 01/13/2018 No longer Active cyanocobalamin (vit B-12) 1,000 mcg/mL injection solut ion RxNorm: 965623 Milliliter 12/06/2017 No longer Active cyanocobalamin (vit B-12) 1,000 mcg/mL injection solut ion RxNorm: 973344 1Milliliter 11/01/2017 No longer Active cyanocobalamin (vit B-12) 1,000 mcg/mL injection solut ion RxNorm: 888745 1Milliliter 09/28/2017 No longer Active Immunizations Vaccine [...] ICD- 10: D50.0 ICD-9: 280.0 09/27/2017 Other chcf (current) drug therapy ICD-10: Z79.899 ICD-9: V58.69 [...] (3rd IS) 0.94 uIU/mL 11/07/2018 Free T4 Rbv845 FREE T4 1.21 ng/dL 11/07/2018 Free T4 Lmc432 FREE T4 1.22 ng/dL 09/20/2018 Cbc With [...] 25.0 pg 09/20/2018 Cbc With Differential Ord2 Bradley% 8.1 % 09/20/2018 Cbc With Differential Ord2 [...] 1.73 K/ul 09/20/2018 Cbc With Differential Ord2 Bradley ABS# 0.8 K/ul 09/20/2018 Cbc With Differential Ord2 Eos ABS# 0.4 K/ul 09/20/2018 Cbc With Differential Ord2 Baso ABS# 0.1 K/ul 09/20/2018 Lipid Ord30 CHOL 176 mg/dL 09/20/2018 Lipid Ord30 HDL 55.0 mg/dl 09/20/2018 Lipid Ord30 TRIG 133 mg/dL 09/20/2018 Lipid Ord30 LDL 94 mg/dL 09/20/2018 Lipid Ord30 C/HDL 3.2 Ratio 09/20/2018 Comp Metabolic Ykx776 NA 140 mEq/L 09/20/2018 Comp Metabolic Lpd222 K 4.4 mEq/L 09/20/2018 Comp Metabolic Lnz562 CL 104 mEq/L 09/20/2018 Comp Metabolic Xrx322 CO2 27.0 mEq/L 09/20/2018 Comp Metabolic Xol562 AN ION GAP 13 09/20/2018 Comp Metabolic Awl463 GL UCOSE 104 mg/dL 09/20/2018 Comp Metabolic Dah892 Cr eat 0.6 mg/dL 09/20/2018 Comp Metabolic Hth419 eG FR 112 ml/min/1.73m2 07/2018 Comp Metabolic Rpd120 BUN 18 mg/dL 09/20/2018 Comp Metabolic Mcl523 B/ C Ratio 29.5 Ratio 09/20/2018 Comp Metabolic Ydd948 CA LCIUM 9.4 mg/dL 09/20/2018 Comp Metabolic Ppe195 AL K PHOS 97 U/L 09/20/2018 Comp Metabolic Uyr535 T(SGOT) 13 U/L 09/20/2018 Comp Metabolic Msu348 AL T(SGPT) 16 U/L 09/20/2018 Comp Metabolic Eum728 BI LI T 0.2 mg/dL 09/20/2018 Comp Metabolic Eah339 AL BUMIN 4.0 g/dL 09/20/2018 Comp Metabolic Tvt465 TP RO 7.0 g/dL 09/20/2018 Comp Metabolic Etq109 GL OB 3.0 g/dL 09/20/2018 Comp Metabolic Jww872 A/ G Ratio 1.4 Ratio 09/20/2018 Comp Metabolic Rdt464 Os mo 282 mOsmo 09/20/2018 %Hba1C Kjc561 % HbA1c 19561-1 6.6 % 09/20/2018 %Hba1C Jxj684 Gluc Ave 143 mg/dL 09/20/2018 Tsh Ord6 TSH (3rd IS) 1.85 uIU/mL 09/20/2018 Hgb & Hct Ord65 HGB 9.7 g/dl 10/06/2017 Hgb & Hct Ord65 HCT 33.5 % 10/06/2017 Hgb & Hct Ord65 HGB 8.6 g/dl 09/24/2017 Hgb & Hct Ord65 HCT 30.4 % 09/24/2017 B12 Vjn126 B12 124.00 pg/ml 09/15/2017 Cbc With Differential [...] 20.0 pg 09/15/2017 Cbc With Differential Ord2 Bradley% 7.7 % 09/15/2017 Cbc With Differential Ord2 [...] 1.94 K/ul 09/15/2017 Cbc With Differential Ord2 Bradley ABS# 0.8 K/ul 09/15/2017 Cbc With Differential Ord2 Eos ABS# 0.5 K/ul 09/15/2017 Cbc With Differential Ord2 Baso ABS# 0.1 K/ul 09/15/2017 Tibc Ord40 Iron 21 ug/dl 09/15/2017 Tibc Ord40 UIBC 432 ug/dL 09/15/2017 Tibc Ord40 TIBC 453 ug/dL 09/15/2017 Tibc Ord40 Fe-%Sat 4.6 % 09/15/2017 Folate Ord36 Folate 15.31 ng/mL 09/15/2017 Ferritin Ord22 FERRITIN 4.3 ng/mL 09/15/2017 Free T4 Ntr502 FREE T4 0.88 ng/dL 09/10/2017 %Hba1C Xwe223 % HbA1c 95144-9 6.7 % 09/10/2017 %Hba1C Xvy282 Gluc Ave 146 mg/dL 09/10/2017 Cbc With [...] 20.5 pg 09/10/2017 Cbc With Differential Ord2 Bradley% 8.0 % 09/10/2017 Cbc With Differential Ord2 [...] 2.10 K/ul 09/10/2017 Cbc With Differential Ord2 Bradley ABS# 0.7 K/ul 09/10/2017 Cbc With Differential Ord2 Eos ABS# 0.5 K/ul 09/10/2017 Cbc With Differential Ord2 Baso ABS# 0.0 K/ul 09/10/2017 Comp Metabolic Cui257 NA 139 mEq/L 09/10/2017 Comp Metabolic Irx434 K 4.6 mEq/L 09/10/2017 Comp Metabolic Dlh055 CL 103 mEq/L 09/10/2017 Comp Metabolic Gzv677 CO2 28.0 mEq/L 09/10/2017 Comp Metabolic Lnt190 AN ION GAP 13 09/10/2017 Comp Metabolic Ezi005 GL UCOSE 91 mg/dL 09/10/2017 Comp Metabolic Ksa864 Cr eat 0.6 mg/dL 09/10/2017 Comp Metabolic Xjm682 eG FR 117 ml/min/1.73m2 08/20 Comp Metabolic Osz772 BUN 22 mg/dL 09/10/2017 Comp Metabolic Aoa835 B/ C Ratio 37.3 Ratio 09/10/2017 Comp Metabolic Ohx719 CA LCIUM 9.6 mg/dL 09/10/2017 Comp Metabolic Uxg710 AL K PHOS 100 U/L 09/10/2017 Comp Metabolic Iem825 T(SGOT) 12 U/L 09/10/2017 Comp Metabolic Blg427 AL T(SGPT) 13 U/L 09/10/2017 Comp Metabolic Abg135 BI LI T 0.2 mg/dL 09/10/2017 Comp Metabolic Ngl363 AL BUMIN 3.9 g/dL 09/10/2017 Comp Metabolic Xcb547 TP RO 7.0 g/dL 09/10/2017 Comp Metabolic Dyc542 GL OB 3.1 g/dL 09/10/2017 Comp Metabolic Bvg639 A/ G Ratio 1.3 Ratio 09/10/2017 Comp Metabolic Tku945 Os mo 280 mOsmo 09/10/2017 Tsh Ord6 TSH (3rd IS) 6.83 uIU/mL 09/10/2017 Free T4 Cas704 FREE T4 1.53 ng/dL 04/07/2017 Tsh Ord6 hTSH II 0.55 uIU/mL 04/07/2017 Tsh Ord6 hTSH II 0.55 uIU/mL 12/30/2016 Free T4 Ofr389 FREE T4 1.15 ng/dL 12/30/2016 %Hba1C Pwa781 % HbA1c 48435-4 6.0 % 10/01/2016 %Hba1C Tsj354 Gluc Ave 126 mg/dL 10/01/2016 Tsh Ord6 hTSH II 0.19 uIU/mL 10/01/2016 Comp Metabolic Ruh848 NA 139 mEq/L 10/01/2016 Comp Metabolic Rxe496 K 4.6 mEq/L 10/01/2016 Comp Metabolic Bki276 CL 102 mEq/L 10/01/2016 Comp Metabolic Lhs848 CO2 28.0 mEq/L 10/01/2016 Comp Metabolic Rbv520 AN ION GAP 14 10/01/2016 Comp Metabolic Csl578 GL UCOSE 93 mg/dL 10/01/2016 Comp Metabolic Etb987 Cr eat 0.6 mg/dL 10/01/2016 Comp Metabolic Vvy330 eG FR 109 ml/min/1.73m2 09/19 Comp Metabolic Gmy552 BUN 20 mg/dL 10/01/2016 Comp Metabolic Sqz598 B/ C Ratio 31.7 Ratio 10/01/2016 Comp Metabolic Pqy075 CA LCIUM 9.8 mg/dL 10/01/2016 Comp Metabolic Nrh878 AL K PHOS 114 U/L 10/01/2016 Comp Metabolic Rhm142 T(SGOT) 11 U/L 10/01/2016 Comp Metabolic Mnk028 AL T(SGPT) 12 U/L 10/01/2016 Comp Metabolic Wmb187 BI LI T 0.4 mg/dL 10/01/2016 Comp Metabolic Kfr507 AL BUMIN 4.3 g/dL 10/01/2016 Comp Metabolic Fbb282 TP RO 7.2 g/dL 10/01/2016 Comp Metabolic Hxs167 GL OB 2.9 g/dL 10/01/2016 Comp Metabolic Dmd401 A/ G Ratio 1.5 Ratio 10/01/2016 Comp Metabolic Gne136 Os mo 280 mOsmo 10/01/2016 Free T4 Eet964 FREE T4 1.37 ng/dL 10/01/2016 Lipid Ord30 [...] 27.9 pg 10/01/2016 Cbc With Differential Ord2 Bradley% 8.5 % 10/01/2016 Cbc With Differential Ord2 [...] 1.69 K/ul 10/01/2016 Cbc With Differential Ord2 [place] ABS# 0.7 K/ul 10/01/2016 Cbc With Differential [...] 22.7 pg 04/06/2016 Cbc With Differential Ord2 Bradley% 8.2 % 04/06/2016 Cbc With Differential Ord2 [...] 1.48 K/ul 04/06/2016 Cbc With Differential Ord2 Bradley ABS# 0.5 K/ul 04/06/2016 Cbc With Differential Ord2 Eos ABS# 0.4 K/ul 04/06/2016 Cbc With Differential Ord2 Baso ABS# 0.0 K/ul 04/06/2016 Ferritin Ord22 FERRITIN 5.8 ng/mL 04/06/2016 Free T4 Bws031 FREE T4 1.16 ng/dL 03/16/2016 %Hba1C Qkc644 % HbA1c 54912-6 7.0 % 03/16/2016 %Hba1C Qem898 Gluc Ave 154 mg/dL 03/16/2016 Cbc With [...] 23.2 pg 03/16/2016 Cbc With Differential Ord2 Bradley% 4.8 % 03/16/2016 Cbc With Differential Ord2 [...] 1.75 K/ul 03/16/2016 Cbc With Differential Ord2 [place] ABS# 0.6 K/ul 03/16/2016 Cbc With Differential Ord2 Eos ABS# 0.4 K/ul 03/16/2016 Cbc With Differential Ord2 Baso ABS# 0.0 K/ul 03/16/2016 Tsh Ord6 hTSH II 1.39 uIU/mL 03/16/2016 Tsh Ord6 hTSH II 10.28 uIU/mL 11/14/2015 Free T4 Vvx234 FREE T4 0.79 ng/dL 11/14/2015 Lipid Ord30 [...] 24.4 pg 11/14/2015 Cbc With Differential Ord2 Bradley% 6.6 % 11/14/2015 Cbc With Differential Ord2 [...] 1.72 K/ul 11/14/2015 Cbc With Differential Ord2 [place] ABS# 0.8 K/ul 11/14/2015 Cbc With Differential Ord2 Eos ABS# 0.4 K/ul 11/14/2015 Cbc With Differential Ord2 Baso ABS# 0.0 K/ul 11/14/2015 Comp Metabolic Xgy797 NA 136 mEq/L 11/14/2015 Comp Metabolic Qal729 K 4.4 mEq/L 11/14/2015 Comp Metabolic Kiu580 CL 101 mEq/L 11/14/2015 Comp Metabolic Jmj493 CO2 27.0 mEq/L 11/14/2015 Comp Metabolic Uhd222 AN ION GAP 12 11/14/2015 Comp Metabolic Hvk852 GL UCOSE 107 mg/dL 11/14/2015 Comp Metabolic Taw524 Cr eat 0.6 mg/dL 11/14/2015 Comp Metabolic Cbn885 eG FR 125 ml/min/1.73m2 10/20 Comp Metabolic Ktz300 BUN 14 mg/dL 11/14/2015 Comp Metabolic Htd414 B/ C Ratio 25.0 Ratio 11/14/2015 Comp Metabolic Zmy549 CA LCIUM 9.6 mg/dL 11/14/2015 Comp Metabolic Znv032 AL K PHOS 104 U/L 11/14/2015 Comp Metabolic Tql162 T(SGOT) 16 U/L 11/14/2015 Comp Metabolic Fqb325 AL T(SGPT) 14 U/L 11/14/2015 Comp Metabolic Trr804 BI LI T 0.3 mg/dL 11/14/2015 Comp Metabolic Aku817 AL BUMIN 4.0 g/dL 11/14/2015 Comp Metabolic Fuz833 TP RO 7.2 g/dL 11/14/2015 Comp Metabolic Buc691 GL OB 3.2 g/dL 11/14/2015 Comp Metabolic Tcd773 A/ G Ratio 1.3 Ratio 11/14/2015 Comp Metabolic Eit116 Os mo 273 mOsmo 11/14/2015 %Hba1C Zkk619 % HbA1c 59668-1 7.0 % 11/14/2015 %Hba1C Jdb661 Gluc Ave 154 mg/dL 11/14/2015 Free T4 Ftk225 FREE T4 0.49 ng/dL 08/02/2015 Tsh Ord6 hTSH II 44.41 uIU/mL 07/31/2015 %Hba1C Sel070 % HbA1c 13469-0 6.7 % 07/31/2015 %Hba1C Azl941 Gluc Ave 146 mg/dL 07/31/2015 Cbc With [...] Differential Ord2 RDW 14.9 % 03/13/2015 %Hba1C Cvm373 % HbA1c 36583-6 6.8 % 03/13/2015 %Hba1C Bun293 Gluc Ave 148 mg/dL 03/13/2015 Tsh Ord6 hTSH II 0.95 uIU/mL 03/13/2015 Lipid Ord30 CHOL 146 mg/dL 03/13/2015 Lipid Ord30 HDL 40.0 mg/dl 03/13/2015 Lipid Ord30 TRIG 137 mg/dL 03/13/2015 Lipid Ord30 LDL 79 mg/dL 03/13/2015 Lipid Ord30 C/HDL 3.7 Ratio 03/13/2015 Comp Metabolic Bpn245 NA 135 mEq/L 03/13/2015 Comp Metabolic Sfh974 K 4.5 mEq/L 03/13/2015 Comp Metabolic Xqd229 CL 99 mEq/L 03/13/2015 Comp Metabolic Sal972 CO2 29.0 mEq/L 03/13/2015 Comp Metabolic Olg982 AN ION GAP 12 03/13/2015 Comp Metabolic Swv075 GL UCOSE 98 mg/dL 03/13/2015 Comp Metabolic Qwz763 Cr eat 0.7 mg/dL 03/13/2015 Comp Metabolic Nbq433 eG FR 100 ml/min/1.73m2 02/20 Comp Metabolic Kim957 BUN 13 mg/dL 03/13/2015 Comp Metabolic Cgf521 B/ C Ratio 19.1 Ratio 03/13/2015 Comp Metabolic Ito971 CA LCIUM 9.8 mg/dL 03/13/2015 Comp Metabolic Upi943 AL K PHOS 91 U/L 03/13/2015 Comp Metabolic Eto126 T(SGOT) 10 U/L 03/13/2015 Comp Metabolic Own282 AL T(SGPT) 10 U/L 03/13/2015 Comp Metabolic Jxk324 BI LI T 0.4 mg/dL 03/13/2015 Comp Metabolic Mgv555 AL BUMIN 4.1 g/dL 03/13/2015 Comp Metabolic Gat886 TP RO 6.9 g/dL 03/13/2015 Comp Metabolic Scu770 GL OB 2.8 g/dL 03/13/2015 Comp Metabolic Ctv069 A/ G Ratio 1.5 Ratio 03/13/2015 Comp Metabolic Aur474 Os mo 270 mOsmo 03/13/2015 Free T4 Rug288 FREE T4 1.25 ng/dL 03/13/2015 Review of [...] Procedure Codes Date THER/PROPH/DIAG INJ SC/IM CPT-4: 11462 09/13/2018 VITAMIN B12 INJECTION CPT-4: J3420 09/13/2018 THER/PROPH/DIAG INJ SC/IM CPT-4: 02779 08/11/2018 VITAMIN B12 INJECTION CPT-4: J3420 08/11/2018 THER/PROPH/DIAG INJ SC/IM CPT-4: 11502 06/29/2018 THER/PROPH/DIAG INJ SC/IM CPT-4: 08738 03/23/2018 VITAMIN B12 INJECTION CPT-4: J3420 03/23/2018 THER/PROPH/DIAG INJ SC/IM CPT-4: 51302 02/07/2018 VITAMIN B12 INJECTION CPT-4: J3420 02/07/2018 THER/PROPH/DIAG INJ SC/IM CPT-4: 78862 01/13/2018 VITAMIN B12 INJECTION CPT-4: J3420 01/13/2018 VITAMIN B12 INJECTION CPT-4: J3420 12/06/2017 THER/PROPH/DIAG INJ SC/IM CPT-4: 27511 12/06/2017 THER/PROPH/DIAG INJ SC/IM CPT-4: 59143 11/01/2017 VITAMIN B12 INJECTION CPT-4: J3420 11/01/2017 THER/PROPH/DIAG INJ SC/IM CPT-4: 09717 09/28/2017 VITAMIN B12 INJECTION CPT-4: J3420 09/28/2017 Vital Signs Date Vital 09/21/2018 Blood Pressure 1: 122/74 Code: 8480-6 BMI: 45.5 Code: 44387-5 Heart Rate 1: 79 bpm Height: 5'3" SpO2: 98% Temperature: 36.9 (C ) / 98.5 (F) Weight: 257 lbs 11/01/2017 Heigh t: 5'3" 09/10/2017 Blood Pressure 1: 136/70 Code: 8480-6 BMI: 44.6 Code: 51437-7 Heart Rate 1: 91 bpm Height: 5'3" SpO2: 96% Weight: 252 lbs 10/13/2016 Blood Pressure 1: 134/82 Code: 8480-6 BMI: 43.6 Code: 63074-7 Heart Rate 1: 97 bpm Height: 5'3" SpO2: 97% Weight: 246 lbs 01/14/2016 Blood Pressure 1: 132/78 Code: 8480-6 BMI: 45.7 Code: 84904-6 Heart Rate 1: 90 bpm Height: 5'3" SpO2: 98% Weight: 258 lbs 07/31/2015 Blood Pressure 1: 142/80 Code: 8480-6 BMI: 45.7 Code: 93601-4 Heart Rate 1: 78 bpm Height: 5'3" SpO2: 96% Weight: 258 lbs 04/04/2015 Blood Pressure 1: 130/82 Code: 8480-6 BMI: 44.9 Code: 64447-8 Heart Rate 1: 90 bpm Height: 5'3" SpO2: 96% Weight: 253 lbs 5 oz 03/13/2015 Blood Pressure 1: 140/86 Code: 8480-6 BMI: 45.2 Code: 47069-8 Heart Rate 1: 87 bpm Height: 5'3" [...] of the thyroid 09/10/2017 None 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 PATIENT, LEVEL IV Diagnosis: Acne vulgaris[ICD10: L70.0] Diagnosis: Type 2 diabetes mellitus with hyperglycemia[ICD10: E11.65] Diagnosis: Other specified hypothyroidism[ICD10: E03.8] Anyi Cano MD, [facility] CPT-4: 84699 09/21/2018 [id number] EST. 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 PATIENT, LEVEL IV Diagnosis: Other acute sinusitis[ICD10: J01.80] Diagnosis: Other allergic rhinitis[ICD10: J30.89] Diagnosis: Wheezing[ICD10: R06.2] Anyi Cano MD, [facility] CPT-4: 60676 01/14/2016 76124 EST. 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 P ATIENT, LEVEL III Diagnosis: Achilles tendinitis, left leg[ICD10: M76.62] Beba Cano MD, [facility] CPT-4: 10023 04/04/2015 ([id number]) OFFICE VISI T, NEW - LEVEL 4 Diagnosis: HYPERLIPIDEMIA[ICD9: 272.4] Diagnosis: DIABETES TYPE II[ICD9: 250.00] Diagnosis: HYPOTHYROIDISM[ICD9: 244.9] Diagnosis: ACHILLES TENDINITIS[ICD9: 726.71] Beba Cano MD, [facility] CPT-4: 55747 03/13/2015 Plan of Care Planned Activity Notes [...] control. 09/21/2018 Appointment: [phone] [id number] ([facility] min) [facility] 09/21/2018 Patient Education: Patient Medication Summary Completed 09/21/2018 Patient Education: Patient Medication Summary Completed 09/19/2018 Appointment: Injection 09/13/2018 Patient Education: Patient Medication Summary Completed 09/13/2018 Appointment: Injection 08/11/2018 Patient Education: Patient Medication Summary Completed 08/11/2018 Appointment: Injection 06/29/2018 Patient Education: Patient Medication Summary Completed 06/29/2018 Patient Education: Patient Medication Summary Completed 04/05/2018 Care Plan: [facility] : [id number] Pending 04/05/2018 Appointment: Injection 03/23/2018 Patient Education: Patient Medication Summary Completed 03/23/2018 Appointment: Injection 02/07/2018 Patient Education: Patient Medication Summary Completed 02/07/2018 Appointment: Injection 01/13/2018 Patient Education: Patient Medication Summary Completed 01/13/2018 Patient Education: Patient Medication Summary Completed 01/12/2018 Care Plan: [facility] : [id number] Pending 01/12/2018 Appointment: Injection 12/06/2017 Patient Education: [...] 09/14/2017 Care Plan: Referral Order SNOMED-CT : [id number] Pending 09/13/2017 Visit Plan: Diabetes Mellitus - [...] or pap done - 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 09/10/2017 Appointment: Any[facility] Vel[facility]quez [phone] [id number] (15 min) Moderate 09/10/2017 Patient Education: Patient Medication Summary Completed 09/10/2017 Referral: Arvind Briseno [address] [facility] Referral Completed 10/27/2016 Referral: Arvind Briseno [facility] Referral Initiated 10/27/2016 Visit Plan: [...] of control. 10/13/2016 Appointment: Anyi Velázquez WPtel: [facility] (15 min) Moderate 10/13/2016 Patient Education: Patient Medication Summary Completed 10/13/2016 Care Plan: Referral Order SNOMED-CT : [id number] Pending 10/13/2016 Visit Plan: Sinusitis - Pt [...] allergy spray. 01/14/2016 Appointment: Melissa Newman WPtel: [phone] (30 min) Complex 01/14/2016 Patient Education: Patient [...] not improving. 04/04/2015 Appointment: Beba Cano WPtel: [facility] ([facility] min) Moderate 04/04/2015 Patient Education: Patient [...] that appt. 03/13/2015 Appointment: Beba Cano WPtel: [facility] [place] [phone] [place] (S) New Patient 03/13/2015 Patient Education: Patient Medication Summary Completed 03/13/2015 Patient Education: Hypertension Completed 03/13/2015 Patient Education: Patient Medication Summary Completed 10/24/2014 Referral: Katia Hunter WPtel: [address] [place] [address] they will call pt to schedule appt Initiated Referral: Katia Hunter WPtel: [address] [place] [address] Referral Initiated Referral: Arvind Briseno [address] [place] [address] Referral Initiated Instructions Comment . Achilles Tendoniti s - Recommended pt to wear boot when not at work, pt released for full duty at work. Continue with naproxen. Call if not improving. walk for 30 minutes 3-5 times a [...] release back to work at that appt. 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 . Sinusitis - Pt has acute infection [...]
--- OUTSIDE RECORDS SUMMARY | 2020-01-06 14:40 | XMS REPORT | CCD ---
Author Author Lucia Cano Organization Beba Cano MD, [facility] Address [address] [place] [address] Phone Care Team Providers Care Bridge Tender Name Role Phone PP Unavailable CCM Unavailable Summary Purpose Interface Exchange Insurance Providers Payer name Policy type / Coverage type Covered libertarian ID Effective Begin Date Effective End Date WPS Medicare Part B Medicare Part B [id number] Unknown [employer] Better Health in [facility] Part B [id number] Unk nown Family history Father Diagnosis Age [...] employed [employer] 04/04/[address]: 832013840 Never smoker 04/04/[address]: 128966236 Never drinks alcohol 04/04/2015 Has the patient [...] ICD-9: 706.1 ICD-10: L70.0 09/21/2018 Active 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 ICD-9: V58.69 [...] Date Stop Date Sta tus Fill Instructions Farxiga 10 mg tablet RxNorm: 6052891 1 Tablet(s) PO daily 09/21/2018 01/18/[address] of invokana Farxiga 10 mg tablet RxNorm: 5061608 1 Tablet(s) PO daily 09/21/2018 09/20/[address] invokana cyanocobalamin (vit B-12) 1,000 mcg/mL injection solution RxNorm: 998767 Milliliter(s) Inj 09/13/2018 09/13/2018 Inactive cyanocobalamin (vit B-12) 1,000 mcg/mL injection solution RxNorm: 555459 Milliliter(s) Inj 08/11/2018 08/11/2018 Inactive naproxen 500 mg tablet RxNorm: 540254 TAKE 1 TABLET BY MOUTH TWICE DAILY 08/09/2018 11/06/2018 In active Generic For:NAPROSYN 500MG 08/09/2018 1 1:14:27 AM N O T I C E Last quantity doesn't match original quantity levothyroxine 200 mc g tablet RxNorm: 129113 1 Tablet(s) PO daily to take with the 50mcg daily to equal 250mcg daily 07/19/2018 04/14/2019 Active cyanocobalamin (vit B-12) 1,000 mcg/mL injection solution RxNorm: 439279 Milliliter(s) Inj 06/29/2018 06/29/2018 Inactive naproxen 500 mg tablet RxNorm: 823046 TAKE 1 TABLET BY MOUTH TWICE DAILY 05/19/2018 08/08/2018 In active Generic For:NAPROSYN 500MG 05/19/2018 1 0:56:16 AM N O T I C E Last quantity doesn't match original quantity Kenalog 40 mg/mL debora pension for injection RxNorm: 4316099 Milliliter(s) Inj 03/23/2018 03/23/2018 In active levothyroxine 50 mcg tablet RxNorm: 725106 TAKE 1 TABLET BY MOUT H ONCE DAILY WITH 200MCG (250MCG TOTAL) 03/11/2018 06/08/2018 Inactive Generic For:SYNTHROID 50MCG TAB 03/11/2018 9:09:32 AM naproxen 500 mg tablet RxNorm: 392834 TAKE 1 TABLET BY MOUTH TWICE DAILY 02/25/2018 05/18/2018 In active Generic For:NAPROSYN 500MG 02/25/2018 1 2:39:53 PM N O T I C E Last quantity doesn't match original quantity cyanocobalamin (vit B-12) 1,000 mcg/mL injection solution RxNorm: 809523 Milliliter(s) Inj 02/07/2018 02/07/2018 Inactive metformin 1,000 mg t ablet RxNorm: 377626 TAKE 1 TABLET BY MOUT H TWICE A DAY 01/19/2018 01/13/2019 Ac tive Generic For:*GLUCOPHAGE 1000MG 01/20/20 10:20:50 AM cyanocobalamin (vit B-12) 1,000 mcg/mL injection solution RxNorm: 781598 Milliliter(s) Inj 01/13/2018 01/13/2018 Inactive cyanocobalamin (vit B-12) 1,000 mcg/mL injection solution RxNorm: 977132 Milliliter(s) Inj 12/06/2017 12/06/2017 Inactive Invokana 300 mg tablet RxNorm: 2349438 TAKE 1 TABLET BY MOUTH DAILY 11/08/2017 09/20/2018 In active 11/05/2017 5:10:44 PM naproxen 500 mg tablet RxNorm: 171271 TAKE 1 TABLET BY MOUTH TWICE DAILY 11/08/2017 02/05/2018 In active Generic For:NAPROSYN 500MG 11/08/2017 9 :14:56 AM N O T I C E Last quantity doesn't match original quantity Lipitor 40 mg tablet RxNorm: 488912 TAKE 1 TABLET BY MOUTH DAILY 11/08/2017 11/02/2018 Inactive Generic For:LIPITOR 40MG 11/05/2017 5:1 0:24 PM levothyroxine 50 mcg tablet RxNorm: 773172 1 Tablet(s) PO daily to take with the 200mcg daily to equal 250mcg daily 11/08/2017 02/05/2018 Inactive cyanocobalamin (vit B-12) 1,000 mcg/mL injection solution RxNorm: 164131 1 Milliliter(s) Inj 11/01/2017 11/01/2017 Inactive cyanocobalamin (vit B-12) 1,000 mcg/mL injection solution RxNorm: 426988 1 Milliliter(s) Inj 09/28/2017 09/28/2017 Inactive levothyroxine 200 mc g tablet RxNorm: 784484 1 Tablet(s) PO daily to take with the 50mcg daily to equal 250mcg daily 09/14/2017 06/10/2018 Inactive levothyroxine 50 mcg tablet RxNorm: 629658 1 Tablet(s) PO daily to take with the 200mcg daily to equal 250mcg daily 09/14/2017 11/07/2017 Inactive naproxen 500 mg tablet RxNorm: 832901 TAKE 1 TABLET BY MOUTH TWICE DAILY 08/05/2017 11/02/2017 In active Generic For:NAPROSYN 500MG 08/05/2017 9 :04:47 AM N O T I C E Last quantity doesn't match original quantity naproxen 500 mg tablet RxNorm: 620282 TAKE 1 TABLET BY MOUTH TWICE DAILY 04/19/2017 08/04/2017 In active Generic For:NAPROSYN 500MG 04/19/2017 1 :49:28 PM Lipitor 40 mg tablet RxNorm: 345209 TAKE 1 TABLET BY MOUTH DAILY 03/22/2017 11/07/2017 Inactive Generic For:LIPITOR 40MG 03/20/2017 9:0 5:49 AM levothyroxine 25 mcg tablet RxNorm: 424716 1 Tablet(s) PO daily to take with her 200mcg to equal 225 mcg daily 03/22/2017 04/08/2017 Inactive Invokana 300 mg tablet RxNorm: 6211068 TAKE 1 TABLET BY MOUTH DAILY 12/21/2016 09/16/2017 In active 12/21/2016 9:03:03 AM levothyroxine 200 mc g tablet RxNorm: 714670 1 Tablet(s) PO daily 12/21/2016 09/13/2017 Inactive metformin 1,000 mg t ablet RxNorm: 373938 TAKE 1 TABLET BY MOUT H TWICE A DAY 11/26/2016 11/20/2017 In active Generic For:*GLUCOPHAGE 1000MG 11/27/19 1:05:15 PM naproxen 500 mg tablet RxNorm: 297216 1 Tablet(s) PO BID 10/21/2016 04/18/2017 Inactive levothyroxine 25 mcg tablet RxNorm: 148317 1 Tablet(s) PO daily to take with her 200mcg to equal 225 mcg daily 10/13/2016 01/10/2017 Inactive levothyroxine 50 mcg tablet RxNorm: 459386 1 Tablet(s) PO daily 09/21/2016 10/12/2016 Inactive Invokana 300 mg tablet RxNorm: 2827784 1 Tablet(s) PO daily 09/21/2016 12/19/2016 Inactive metformin 1,000 mg t ablet RxNorm: 423524 TAKE 1 TABLET BY MOUT H TWICE A DAY 09/21/2016 11/25/2016 In active Generic For:*GLUCOPHAGE 1000MG 09/22/19 17 8:53:30 AM levothyroxine 200 mc g tablet RxNorm: 574500 1 Tablet(s) PO daily 09/21/2016 12/19/2016 Inactive Lipitor 40 mg tablet RxNorm: 639931 TAKE 1 TABLET BY MOUTH DAILY 06/23/2016 03/19/2017 Inactive Generic For:LIPITOR 40MG 06/23/2016 9:1 2:42 AM levothyroxine 50 mcg tablet RxNorm: 261083 1 Tablet(s) PO daily TAKE 1 TABLET BY MOUTH DAILY 06/23/2016 09/20/2016 Inactive Generic For:SYNTHROID 50MCG TAB 06/23/2016 9:22:58 AM metformin 1,000 mg t ablet RxNorm: 416778 TAKE 1 TABLET BY MOUT H TWICE A DAY 06/23/2016 09/20/2016 In active Generic For:*GLUCOPHAGE 1000MG 06/23/19 17 9:12:46 AM levothyroxine 200 mc g tablet RxNorm: 228673 1 Tablet(s) PO daily 04/24/2016 08/21/2016 Inactive naproxen 500 mg tablet RxNorm: 544774 1 Tablet(s) PO BID 03/26/2016 10/20/2016 Inactive levothyroxine 50 mcg tablet RxNorm: 517500 1 Tablet(s) PO daily 03/25/2016 06/23/2016 Inactive Flonase Allergy Reli ef 50 mcg/actuation nasal spray,suspension RxNorm: 0060031 1 [place] NASAL BID 01/14/2016 No Stop Date Active prednisone 20 mg tablet RxNorm: 922794 2 Tablet(s) PO daily 01/14/2016 01/16/2016 Inactive Zithromax Z-Michael 250 mg tablet RxNorm: 957890 Tablet(s) PO 01/14/2016 02/25/2016 Inactive levothyroxine 200 mc g tablet RxNorm: 552407 1 Tablet(s) PO daily 11/25/2015 03/23/2016 Inactive levothyroxine 50 mcg tablet RxNorm: 821578 1 Tablet(s) PO daily 11/25/2015 03/23/2016 Inactive Invokana 300 mg tablet RxNorm: 3530428 1 Tablet(s) PO daily 11/25/2015 09/20/2016 Inactive metformin 1,000 mg t ablet RxNorm: 486502 TAKE 1 TABLET BY MOUT H TWICE A DAY 08/22/2015 05/17/2016 In active Generic For:*GLUCOPHAGE 1000MG N O T I C E PRESCRIPTION PREVIOUSLY AUTHORIZED BY DOCTOR:PEDRO SIMPSON levothyroxine 200 mc g tablet RxNorm: 562525 1 Tablet(s) PO daily 08/02/2015 11/24/2015 Inactive levothyroxine 25 mcg tablet RxNorm: 851694 1 Tablet(s) PO daily 08/02/2015 11/24/2015 Inactive levothyroxine 25 mcg tablet RxNorm: 177254 1 Tablet(s) PO daily 08/02/2015 08/01/2015 Inactive Zithromax Z-Michael 250 mg tablet RxNorm: 597445 Tablet(s) PO 07/31/2015 10/27/2015 Inactive naproxen 500 mg tablet RxNorm: 439104 1 Tablet(s) PO BID 07/31/2015 02/25/2016 Inactive Lipitor 40 mg tablet RxNorm: 948371 TAKE 1 TABLET BY MOUTH DAILY 05/26/2015 05/19/2016 Inactive Generic For:LIPITOR 40MG 05/25/2015 10: 36:19 AM levothyroxine 200 mc g tablet RxNorm: 145918 TAKE 1 TABLET ONCE DA SUKUMAR WITH 50MCG TABLET TO MAKE 250MCG. 05/26/2015 07/30/2015 Inactive Generic For:SYNTHROID 200MC G TAB 05/25/2015 10:36:11 AM Invokana 100 mg tablet RxNorm: 0608399 1 Tablet(s) PO daily 03/15/2015 03/14/2015 Inactive Invokana 100 mg tablet RxNorm: 0053393 1 Tablet(s) PO daily 03/15/2015 11/24/2015 Inactive naproxen 500 mg tablet RxNorm: 085055 1 Tablet(s) PO BID 03/13/2015 07/30/2015 Inactive metformin 1,000 mg t ablet RxNorm: 946297 1 Tablet(s) PO BID 03/13/2015 08/21/2015 Inactive levothyroxine 200 mc g tablet RxNorm: 613833 TAKE 1 TABLET ONCE DA SUKUMAR WITH 50MCG TABLET TO MAKE 250MCG. 02/12/2015 05/12/2015 Inactive Generic For:SYNTHROID 200MC G TAB 02/12/2015 11:50:50 AM Lipitor 40 mg tablet RxNorm: 575178 TAKE 1 TABLET BY MOUTH DAILY 02/12/2015 05/12/2015 Inactive Generic For:LIPITOR 40MG 02/12/2015 11: 50:55 AM levothyroxine 200 mc g tablet RxNorm: 181076 1 Tablet(s) PO daily 11/19/2014 02/11/2015 Inactive levothyroxine 200 mc g tablet RxNorm: 414574 1 Tablet(s) PO daily 11/19/2014 11/18/2014 Inactive Lipitor 40 mg tablet RxNorm: 148606 1 Tablet(s) PO daily call and make appt. 11/19/2014 02/11/2015 In active Lipitor 40 mg tablet RxNorm: 611135 1 Tablet(s) PO daily call and make appt. 11/15/2014 11/18/2014 In active Lipitor 40 mg tablet RxNorm: 116020 1 Tablet(s) PO daily call and make appt. 11/15/2014 11/14/2014 In active [place] with Iro n oral RxNorm: oral No Start D ate Active Vitamin B-12 1,000 m cg/mL injection solution RxNorm: 664568 1 Milliliter(s) Inj m onthly No Start Date Active levothyroxine 200 mc g tablet RxNorm: 236955 1 Tablet(s) PO daily No Start Date 08/01/2015 Inactive Medication Administered Medication Codes Instruc tions Start Date Status cyanocobalamin (vit B-12) 1,000 mcg/mL injection solut ion RxNorm: 118717 Milliliter 09/13/2018 No longer Active cyanocobalamin (vit B-12) 1,000 mcg/mL injection solut ion RxNorm: 680668 Milliliter 08/11/2018 No longer Active cyanocobalamin (vit B-12) 1,000 mcg/mL injection solut ion RxNorm: 750270 Milliliter 06/29/2018 No longer Active Kenalog 40 mg/mL suspension for injection RxNorm: 4426766 Milliliter 03/23/2018 No longer Active cyanocobalamin (vit B-12) 1,000 mcg/mL injection solut ion RxNorm: 640886 Milliliter 02/07/2018 No longer Active cyanocobalamin (vit B-12) 1,000 mcg/mL injection solut ion RxNorm: 737186 Milliliter 01/13/2018 No longer Active cyanocobalamin (vit B-12) 1,000 mcg/mL injection solut ion RxNorm: 604588 Milliliter 12/06/2017 No longer Active cyanocobalamin (vit B-12) 1,000 mcg/mL injection solut ion RxNorm: 159928 1Milliliter 11/01/2017 No longer Active cyanocobalamin (vit B-12) 1,000 mcg/mL injection solut ion RxNorm: 048743 1Milliliter 09/28/2017 No longer Active Immunizations Vaccine [...] ICD- 10: D50.0 ICD-9: 280.0 09/27/2017 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 ICD-10: Z79.899 ICD-9: [...] (3rd IS) 0.94 uIU/mL 11/07/2018 Free T4 Ati392 FREE T4 1.21 ng/dL 11/07/2018 Free T4 Oxm913 FREE T4 1.22 ng/dL 09/20/2018 Cbc With [...] 25.0 pg 09/20/2018 Cbc With Differential Ord2 [place]% 8.1 % 09/20/2018 Cbc With Differential Ord2 [...] 1.73 K/ul 09/20/2018 Cbc With Differential Ord2 [place] ABS# 0.8 K/ul 09/20/2018 Cbc With Differential Ord2 Eos ABS# 0.4 K/ul 09/20/2018 Cbc With Differential Ord2 Baso ABS# 0.1 K/ul 09/20/2018 Lipid Ord30 CHOL 176 mg/dL 09/20/2018 Lipid Ord30 HDL 55.0 mg/dl 09/20/2018 Lipid Ord30 TRIG 133 mg/dL 09/20/2018 Lipid Ord30 LDL 94 mg/dL 09/20/2018 Lipid Ord30 C/HDL 3.2 Ratio 09/20/2018 Comp Metabolic Mun952 NA 140 mEq/L 09/20/2018 Comp Metabolic Nrx526 K 4.4 mEq/L 09/20/2018 Comp Metabolic Tsw911 CL 104 mEq/L 09/20/2018 Comp Metabolic Zpc519 CO2 27.0 mEq/L 09/20/2018 Comp Metabolic Den118 AN ION GAP 13 09/20/2018 Comp Metabolic Wuf252 GL UCOSE 104 mg/dL 09/20/2018 Comp Metabolic Rhl219 Cr eat 0.6 mg/dL 09/20/2018 Comp Metabolic Hyg951 eG FR 112 ml/min/1.73m2 07/2018 Comp Metabolic Fur636 BUN 18 mg/dL 09/20/2018 Comp Metabolic Ehs085 B/ C Ratio 29.5 Ratio 09/20/2018 Comp Metabolic Nah719 CA LCIUM 9.4 mg/dL 09/20/2018 Comp Metabolic Xcp461 AL K PHOS 97 U/L 09/20/2018 Comp Metabolic Otg945 T(SGOT) 13 U/L 09/20/2018 Comp Metabolic Bbp830 AL T(SGPT) 16 U/L 09/20/2018 Comp Metabolic Kmg063 BI LI T 0.2 mg/dL 09/20/2018 Comp Metabolic Wbe703 AL BUMIN 4.0 g/dL 09/20/2018 Comp Metabolic Oal467 TP RO 7.0 g/dL 09/20/2018 Comp Metabolic Jvc077 GL OB 3.0 g/dL 09/20/2018 Comp Metabolic Edq761 A/ G Ratio 1.4 Ratio 09/20/2018 Comp Metabolic Pka579 Os mo 282 mOsmo 09/20/2018 %Hba1C Hfj794 % HbA1c 56542-5 6.6 % 09/20/2018 %Hba1C Ert355 Gluc Ave 143 mg/dL 09/20/2018 Tsh Ord6 TSH (3rd IS) 1.85 uIU/mL 09/20/2018 Hgb & Hct Ord65 HGB 9.7 g/dl 10/06/2017 Hgb & Hct Ord65 HCT 33.5 % 10/06/2017 Hgb & Hct Ord65 HGB 8.6 g/dl 09/24/2017 Hgb & Hct Ord65 HCT 30.4 % 09/24/2017 B12 Cso909 B12 124.00 pg/ml 09/15/2017 Cbc With Differential [...] 20.0 pg 09/15/2017 Cbc With Differential Ord2 [place]% 7.7 % 09/15/2017 Cbc With Differential Ord2 [...] 1.94 K/ul 09/15/2017 Cbc With Differential Ord2 [place] ABS# 0.8 K/ul 09/15/2017 Cbc With Differential Ord2 Eos ABS# 0.5 K/ul 09/15/2017 Cbc With Differential Ord2 Baso ABS# 0.1 K/ul 09/15/2017 Tibc Ord40 Iron 21 ug/dl 09/15/2017 Tibc Ord40 UIBC 432 ug/dL 09/15/2017 Tibc Ord40 TIBC 453 ug/dL 09/15/2017 Tibc Ord40 Fe-%Sat 4.6 % 09/15/2017 Folate Ord36 Folate 15.31 ng/mL 09/15/2017 Ferritin Ord22 FERRITIN 4.3 ng/mL 09/15/2017 Free T4 Yeq294 FREE T4 0.88 ng/dL 09/10/2017 %Hba1C Nfv014 % HbA1c 89455-5 6.7 % 09/10/2017 %Hba1C Brz991 Gluc Ave 146 mg/dL 09/10/2017 Cbc With [...] 20.5 pg 09/10/2017 Cbc With Differential Ord2 [place]% 8.0 % 09/10/2017 Cbc With Differential Ord2 [...] 2.10 K/ul 09/10/2017 Cbc With Differential Ord2 [place] ABS# 0.7 K/ul 09/10/2017 Cbc With Differential Ord2 Eos ABS# 0.5 K/ul 09/10/2017 Cbc With Differential Ord2 Baso ABS# 0.0 K/ul 09/10/2017 Comp Metabolic Pdx671 NA 139 mEq/L 09/10/2017 Comp Metabolic Mnf915 K 4.6 mEq/L 09/10/2017 Comp Metabolic Ozo806 CL 103 mEq/L 09/10/2017 Comp Metabolic Arm789 CO2 28.0 mEq/L 09/10/2017 Comp Metabolic Rne003 AN ION GAP 13 09/10/2017 Comp Metabolic Rey599 GL UCOSE 91 mg/dL 09/10/2017 Comp Metabolic Ymi518 Cr eat 0.6 mg/dL 09/10/2017 Comp Metabolic Use252 eG FR 117 ml/min/1.73m2 08/20 Comp Metabolic Ebb847 BUN 22 mg/dL 09/10/2017 Comp Metabolic Ylz080 B/ C Ratio 37.3 Ratio 09/10/2017 Comp Metabolic Cqd478 CA LCIUM 9.6 mg/dL 09/10/2017 Comp Metabolic Fgf826 AL K PHOS 100 U/L 09/10/2017 Comp Metabolic Tdq447 T(SGOT) 12 U/L 09/10/2017 Comp Metabolic Fdb393 AL T(SGPT) 13 U/L 09/10/2017 Comp Metabolic Thb492 BI LI T 0.2 mg/dL 09/10/2017 Comp Metabolic Fzl505 AL BUMIN 3.9 g/dL 09/10/2017 Comp Metabolic Nwl765 TP RO 7.0 g/dL 09/10/2017 Comp Metabolic Qvo746 GL OB 3.1 g/dL 09/10/2017 Comp Metabolic Dpo736 A/ G Ratio 1.3 Ratio 09/10/2017 Comp Metabolic Djr406 Os mo 280 mOsmo 09/10/2017 Tsh Ord6 TSH (3rd IS) 6.83 uIU/mL 09/10/2017 Free T4 Ndq549 FREE T4 1.53 ng/dL 04/07/2017 Tsh Ord6 hTSH II 0.55 uIU/mL 04/07/2017 Tsh Ord6 hTSH II 0.55 uIU/mL 12/30/2016 Free T4 Oxm958 FREE T4 1.15 ng/dL 12/30/2016 %Hba1C Gqm722 % HbA1c 16563-8 6.0 % 10/01/2016 %Hba1C Emt848 Gluc Ave 126 mg/dL 10/01/2016 Tsh Ord6 hTSH II 0.19 uIU/mL 10/01/2016 Comp Metabolic Cxp758 NA 139 mEq/L 10/01/2016 Comp Metabolic Gto306 K 4.6 mEq/L 10/01/2016 Comp Metabolic Eew472 CL 102 mEq/L 10/01/2016 Comp Metabolic Wlp496 CO2 28.0 mEq/L 10/01/2016 Comp Metabolic Lqu503 AN ION GAP 14 10/01/2016 Comp Metabolic Goe646 GL UCOSE 93 mg/dL 10/01/2016 Comp Metabolic Nsj130 Cr eat 0.6 mg/dL 10/01/2016 Comp Metabolic Wao837 eG FR 109 ml/min/1.73m2 09/19 Comp Metabolic Cbn333 BUN 20 mg/dL 10/01/2016 Comp Metabolic Czx954 B/ C Ratio 31.7 Ratio 10/01/2016 Comp Metabolic Cyj840 CA LCIUM 9.8 mg/dL 10/01/2016 Comp Metabolic Poo048 AL K PHOS 114 U/L 10/01/2016 Comp Metabolic Gzy831 T(SGOT) 11 U/L 10/01/2016 Comp Metabolic Pay243 AL T(SGPT) 12 U/L 10/01/2016 Comp Metabolic Zat158 BI LI T 0.4 mg/dL 10/01/2016 Comp Metabolic Ujm949 AL BUMIN 4.3 g/dL 10/01/2016 Comp Metabolic Kvp620 TP RO 7.2 g/dL 10/01/2016 Comp Metabolic Oor472 GL OB 2.9 g/dL 10/01/2016 Comp Metabolic Sng632 A/ G Ratio 1.5 Ratio 10/01/2016 Comp Metabolic Uuj910 Os mo 280 mOsmo 10/01/2016 Free T4 Lzk976 FREE T4 1.37 ng/dL 10/01/2016 Lipid Ord30 [...] 27.9 pg 10/01/2016 Cbc With Differential Ord2 [place]% 8.5 % 10/01/2016 Cbc With Differential Ord2 [...] 1.69 K/ul 10/01/2016 Cbc With Differential Ord2 [place] ABS# 0.7 K/ul 10/01/2016 Cbc With Differential [...] 22.7 pg 04/06/2016 Cbc With Differential Ord2 [place]% 8.2 % 04/06/2016 Cbc With Differential Ord2 [...] 1.48 K/ul 04/06/2016 Cbc With Differential Ord2 [place] ABS# 0.5 K/ul 04/06/2016 Cbc With Differential Ord2 Eos ABS# 0.4 K/ul 04/06/2016 Cbc With Differential Ord2 Baso ABS# 0.0 K/ul 04/06/2016 Ferritin Ord22 FERRITIN 5.8 ng/mL 04/06/2016 Free T4 Slc588 FREE T4 1.16 ng/dL 03/16/2016 %Hba1C Lsz371 % HbA1c 69771-9 7.0 % 03/16/2016 %Hba1C Wwo037 Gluc Ave 154 mg/dL 03/16/2016 Cbc With [...] 23.2 pg 03/16/2016 Cbc With Differential Ord2 [place]% 4.8 % 03/16/2016 Cbc With Differential Ord2 [...] 1.75 K/ul 03/16/2016 Cbc With Differential Ord2 [place] ABS# 0.6 K/ul 03/16/2016 Cbc With Differential Ord2 Eos ABS# 0.4 K/ul 03/16/2016 Cbc With Differential Ord2 Baso ABS# 0.0 K/ul 03/16/2016 Tsh Ord6 hTSH II 1.39 uIU/mL 03/16/2016 Tsh Ord6 hTSH II 10.28 uIU/mL 11/14/2015 Free T4 Dum455 FREE T4 0.79 ng/dL 11/14/2015 Lipid Ord30 [...] 24.4 pg 11/14/2015 Cbc With Differential Ord2 [place]% 6.6 % 11/14/2015 Cbc With Differential Ord2 [...] 1.72 K/ul 11/14/2015 Cbc With Differential Ord2 [place] ABS# 0.8 K/ul 11/14/2015 Cbc With Differential Ord2 Eos ABS# 0.4 K/ul 11/14/2015 Cbc With Differential Ord2 Baso ABS# 0.0 K/ul 11/14/2015 Comp Metabolic Rws476 NA 136 mEq/L 11/14/2015 Comp Metabolic Ykt693 K 4.4 mEq/L 11/14/2015 Comp Metabolic Tps728 CL 101 mEq/L 11/14/2015 Comp Metabolic Bgf280 CO2 27.0 mEq/L 11/14/2015 Comp Metabolic Fls766 AN ION GAP 12 11/14/2015 Comp Metabolic Khi987 GL UCOSE 107 mg/dL 11/14/2015 Comp Metabolic Xki098 Cr eat 0.6 mg/dL 11/14/2015 Comp Metabolic Bgv212 eG FR 125 ml/min/1.73m2 10/20 Comp Metabolic Lod712 BUN 14 mg/dL 11/14/2015 Comp Metabolic Tgr599 B/ C Ratio 25.0 Ratio 11/14/2015 Comp Metabolic Tkj283 CA LCIUM 9.6 mg/dL 11/14/2015 Comp Metabolic Yox995 AL K PHOS 104 U/L 11/14/2015 Comp Metabolic Paf865 T(SGOT) 16 U/L 11/14/2015 Comp Metabolic Rmu781 AL T(SGPT) 14 U/L 11/14/2015 Comp Metabolic Rac818 BI LI T 0.3 mg/dL 11/14/2015 Comp Metabolic Lsi519 AL BUMIN 4.0 g/dL 11/14/2015 Comp Metabolic Hki147 TP RO 7.2 g/dL 11/14/2015 Comp Metabolic Nsr213 GL OB 3.2 g/dL 11/14/2015 Comp Metabolic Ffg583 A/ G Ratio 1.3 Ratio 11/14/2015 Comp Metabolic Pvy898 Os mo 273 mOsmo 11/14/2015 %Hba1C Afa194 % HbA1c 08659-8 7.0 % 11/14/2015 %Hba1C Kns611 Gluc Ave 154 mg/dL 11/14/2015 Free T4 Wou396 FREE T4 0.49 ng/dL 08/02/2015 Tsh Ord6 hTSH II 44.41 uIU/mL 07/31/2015 %Hba1C Zjh743 % HbA1c 56958-3 6.7 % 07/31/2015 %Hba1C Rxv183 Gluc Ave 146 mg/dL 07/31/2015 Cbc With [...] Differential Ord2 RDW 14.9 % 03/13/2015 %Hba1C Jsv475 % HbA1c 49542-9 6.8 % 03/13/2015 %Hba1C Ieq609 Gluc Ave 148 mg/dL 03/13/2015 Tsh Ord6 hTSH II 0.95 uIU/mL 03/13/2015 Lipid Ord30 CHOL 146 mg/dL 03/13/2015 Lipid Ord30 HDL 40.0 mg/dl 03/13/2015 Lipid Ord30 TRIG 137 mg/dL 03/13/2015 Lipid Ord30 LDL 79 mg/dL 03/13/2015 Lipid Ord30 C/HDL 3.7 Ratio 03/13/2015 Comp Metabolic Gfb817 NA 135 mEq/L 03/13/2015 Comp Metabolic Dmg100 K 4.5 mEq/L 03/13/2015 Comp Metabolic Mhn629 CL 99 mEq/L 03/13/2015 Comp Metabolic Mhk765 CO2 29.0 mEq/L 03/13/2015 Comp Metabolic Lzr262 AN ION GAP 12 03/13/2015 Comp Metabolic Zqo028 GL UCOSE 98 mg/dL 03/13/2015 Comp Metabolic Dmn868 Cr eat 0.7 mg/dL 03/13/2015 Comp Metabolic Pti557 eG FR 100 ml/min/1.73m2 02/20 Comp Metabolic Dsw217 BUN 13 mg/dL 03/13/2015 Comp Metabolic Esf696 B/ C Ratio 19.1 Ratio 03/13/2015 Comp Metabolic Sqc596 CA LCIUM 9.8 mg/dL 03/13/2015 Comp Metabolic Jzk381 AL K PHOS 91 U/L 03/13/2015 Comp Metabolic Ewu428 T(SGOT) 10 U/L 03/13/2015 Comp Metabolic Erd963 AL T(SGPT) 10 U/L 03/13/2015 Comp Metabolic Szy052 BI LI T 0.4 mg/dL 03/13/2015 Comp Metabolic Sus279 AL BUMIN 4.1 g/dL 03/13/2015 Comp Metabolic Oos531 TP RO 6.9 g/dL 03/13/2015 Comp Metabolic Pag053 GL OB 2.8 g/dL 03/13/2015 Comp Metabolic Pvl379 A/ G Ratio 1.5 Ratio 03/13/2015 Comp Metabolic Eqe371 Os mo 270 mOsmo 03/13/2015 Free T4 Qqy454 FREE T4 1.25 ng/dL 03/13/2015 Review of [...] Procedure Codes Date THER/PROPH/DIAG INJ SC/IM CPT-4: 48166 09/13/2018 VITAMIN B12 INJECTION CPT-4: J3420 09/13/2018 THER/PROPH/DIAG INJ SC/IM CPT-4: 25496 08/11/2018 VITAMIN B12 INJECTION CPT-4: J3420 08/11/2018 THER/PROPH/DIAG INJ SC/IM CPT-4: 67060 06/29/2018 THER/PROPH/DIAG INJ SC/IM CPT-4: 01797 03/23/2018 VITAMIN B12 INJECTION CPT-4: J3420 03/23/2018 THER/PROPH/DIAG INJ SC/IM CPT-4: 40961 02/07/2018 VITAMIN B12 INJECTION CPT-4: J3420 02/07/2018 THER/PROPH/DIAG INJ SC/IM CPT-4: 45186 01/13/2018 VITAMIN B12 INJECTION CPT-4: J3420 01/13/2018 VITAMIN B12 INJECTION CPT-4: J3420 12/06/2017 THER/PROPH/DIAG INJ SC/IM CPT-4: 74425 12/06/2017 THER/PROPH/DIAG INJ SC/IM CPT-4: 39014 11/01/2017 VITAMIN B12 INJECTION CPT-4: J3420 11/01/2017 THER/PROPH/DIAG INJ SC/IM CPT-4: 28374 09/28/2017 VITAMIN B12 INJECTION CPT-4: J3420 09/28/2017 Vital Signs Date Vital 09/21/2018 Blood Pressure 1: 122/74 Code: 8480-6 BMI: 45.5 Code: 05253-5 Heart Rate 1: 79 bpm Height: 5'3" SpO2: 98% Temperature: 36.9 (C ) / 98.5 (F) Weight: 257 lbs 11/01/2017 Heigh t: 5'3" 09/10/2017 Blood Pressure 1: 136/70 Code: 8480-6 BMI: 44.6 Code: 38388-1 Heart Rate 1: 91 bpm Height: 5'3" SpO2: 96% Weight: 252 lbs 10/13/2016 Blood Pressure 1: 134/82 Code: 8480-6 BMI: 43.6 Code: 55847-5 Heart Rate 1: 97 bpm Height: 5'3" SpO2: 97% Weight: 246 lbs 01/14/2016 Blood Pressure 1: 132/78 Code: 8480-6 BMI: 45.7 Code: 95339-1 Heart Rate 1: 90 bpm Height: 5'3" SpO2: 98% Weight: 258 lbs 07/31/2015 Blood Pressure 1: 142/80 Code: 8480-6 BMI: 45.7 Code: 25426-7 Heart Rate 1: 78 bpm Height: 5'3" SpO2: 96% Weight: 258 lbs 04/04/2015 Blood Pressure 1: 130/82 Code: 8480-6 BMI: 44.9 Code: 15168-5 Heart Rate 1: 90 bpm Height: 5'3" SpO2: 96% Weight: 253 lbs 5 oz 03/13/2015 Blood Pressure 1: 140/86 Code: 8480-6 BMI: 45.2 Code: 92566-8 Heart Rate 1: 87 bpm Height: 5'3" [...] of the thyroid 09/10/2017 None hypothyroid 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 PATIENT, LEVEL IV Diagnosis: Acne vulgaris[ICD10: L70.0] Diagnosis: Type 2 diabetes mellitus with hyperglycemia[ICD10: E11.65] Diagnosis: Other specified hypothyroidism[ICD10: E03.8] Anyi Cano MD, [facility] CPT-4: 42293 09/21/2018 [id number] EST. PATIENT, LEVEL IV Diagnosis: Excessive and frequent menstruation with irregular cycle[ICD10: N92.1] Diagnosis: Type 2 diabetes mellitus with hyperglycemia[ICD10: E11.65] Diagnosis: Other specified hypothyroidism[ICD10: E03.8] Diagnosis: Other nursing home (current) drug therapy[ICD10: Z79.899] Anyi Cano MD, [facility] CPT-4: 84512 09/10/2017 [id number] EST. 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 PATIENT, LEVEL IV Diagnosis: Other acute sinusitis[ICD10: J01.80] Diagnosis: Other allergic rhinitis[ICD10: J30.89] Diagnosis: Wheezing[ICD10: R06.2] Anyi Cano MD, [facility] CPT-4: 10234 01/14/2016 17512 EST. PATIENT, LEVEL IV Diagnosis: Other nursing home (current) drug therapy[ICD10: Z79.899] Diagnosis: Type 2 diabetes mellitus with hyperglycemia[ICD10: E11.65] Diagnosis: Other specified hypothyroidism[ICD10: E03.8] Diagnosis: Mixed hyperlipidemia[ICD10: E78.2] Anyi Cano MD, [facility] CPT-4: 90237 07/31/2015 ([id number]) 19259 EST. P ATIENT, LEVEL III Diagnosis: Achilles tendinitis, left leg[ICD10: M76.62] Beba Cano MD, [facility] CPT-4: 38605 04/04/2015 ([id number]) OFFICE VISI T, NEW - LEVEL 4 Diagnosis: HYPERLIPIDEMIA[ICD9: 272.4] Diagnosis: DIABETES TYPE II[ICD9: 250.00] Diagnosis: HYPOTHYROIDISM[ICD9: 244.9] Diagnosis: ACHILLES TENDINITIS[ICD9: 726.71] Beba Cano MD, [facility] CPT-4: 34671 03/13/2015 Plan of Care Planned Activity Notes [...] of control. 09/21/2018 Appointment: Anyi Velázquez WPtel: [facility] ([facility] min) [facility] 09/21/2018 Patient Education: Patient Medication Summary Completed 09/21/2018 Patient Education: Patient Medication Summary Completed 09/19/2018 Appointment: Injection 09/13/2018 Patient Education: Patient Medication Summary Completed 09/13/2018 Appointment: Injection 08/11/2018 Patient Education: Patient Medication Summary Completed 08/11/2018 Appointment: Injection 06/29/2018 Patient Education: Patient Medication Summary Completed 06/29/2018 Patient Education: Patient Medication Summary Completed 04/05/2018 [facility] [id number] Pending 04/05/2018 Appointment: Injection 03/23/2018 Patient Education: Patient Medication Summary Completed 03/23/2018 Appointment: Injection 02/07/2018 Patient Education: Patient Medication Summary Completed 02/07/2018 Appointment: Injection 01/13/2018 Patient Education: Patient Medication Summary Completed 01/13/2018 Patient Education: Patient Medication Summary Completed 01/12/2018 Care Plan[facility] [id number] Pending 01/12/2018 Appointment: Injection 12/06/2017 Patient Education: [...] 09/14/2017 Care Plan: Referral Order SNOMED-CT : [id number] Pending 09/13/2017 Visit Plan: Diabetes Mellitus - [...] or pap done - will refer to [employer] due to pt symptoms and difficulty for exam - pt is to notify clinic with any changes or concerns. 09/10/2017 Appointment: Anyi Vel[facility]quez [facility]Ptel[facility] [phone] [facility] (15 min) Moderate 09/10/2017 Patient Education: Patient Medication Summary Completed 09/10/2017 Referral: Arvind Briseno [facility] Referral Completed 10/27/2016 Referral: Arvind Briseno [facility] Referral Initiated 10/27/2016 Visit Plan: [...] control. 10/13/2016 Appointment: Anyi Velázquez [facility] [phone] [facility] (15 min) Moderate 10/13/2016 Patient Education: Patient Medication Summary Completed 10/13/2016 Care Plan: Referral Order SNOMED-CT : [id number] Pending 10/13/2016 Visit Plan: Sinusitis - Pt [...] allergy spray. 01/14/2016 Appointment: Melissa Newman WPtel: [address] [place], [place] [phone] (30 min) Complex 01/14/2016 Patient Education: Patient [...] not improving. 04/04/2015 Appointment: Beba Cano WPtel: [phone] [facility] (15 min) Moderate 04/04/2015 Patient Education: [...] appt. 03/13/2015 Appointment: [phone] [place] New Patient 03/13/2015 Patient Education: Patient Medication Summary Completed 03/13/2015 Patient Education: Hypertension Completed 03/13/2015 Patient Education: Patient Medication Summary Completed 10/24/2014 Referral: Katia Hunter WPtel: [facility] they will call pt to schedule appt Initiated Referral: Katia Hunter WPtel: [facility] Referral Initiated Referral: Arvind Briseno [facility] [place] [facility] [place] [facility] Referral Initiated Instructions Comment . Achilles Tendoniti s - Recommended pt to wear boot when not at work, pt released for full duty at work. Continue with naproxen. Call if not improving. . Hypothyroidism - p t with chronic [...] or pap done - will refer to [employer] due to pt symptoms and difficulty for [...]
--- OUTSIDE RECORDS SUMMARY | 2020-01-06 14:41 | XMS REPORT | CCD ---
Author Author Lucia Cano Organization Beba Cano MD, [facility] Address [address] [place] [address] Phone Care Team Providers Care Staff Registered Nurse Name Role Phone PP Unavailable CCM Unavailable Summary Purpose Interface Exchange Insurance Providers Payer name Policy type / Coverage type Covered constitution party ID Effective Begin Date Effective End Date WPS Medicare Part B Medicare Part B [id number] Unknown Unknown [employer] - other than primary Medi care Part B [id number] Unknown Unkn own Family history Father Diagnosis Age At Onset [...] employed [employer] 04/04/[address]: 456858493 Never smoker 04/04/[address]: 439594975 Never drinks alcohol 04/04/2015 Has the patient ever used illegal drugs? 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 ICD-9: V58.69 ICD-10: [...] ICD-10: R06.2 Active 01/13/2016 Unknown Encounter for screen ing mammogram for [...] Condition Codes Effectiv e Dates Condition Status Mixed hyperlipidemia ICD-9: 272.4 ICD-10: E78.2 07/30/2015 Active Other buttermaker continuous churn (cur rent) drug therapy ICD-9: V58.69 ICD-10: [...] 786.07 ICD-10: R06.2 01/13/2016 Active Encounter for screen ing mammogram for [...] Date Stop Date Sta tus Fill Instructions Invokana 300 mg tablet RxNorm: 0365077 TAKE 1 TABLET BY MOUTH DAILY 12/21/2016 09/16/2017 Ac tive 12/21/2016 9:03:03 AM levothyroxine 200 mc g tablet RxNorm: 051491 1 Tablet(s) PO daily 12/21/2016 09/16/2017 Active metformin 1,000 mg t ablet RxNorm: 912639 TAKE 1 TABLET BY MOUT H TWICE A DAY 11/26/2016 11/20/2017 Ac tive Generic For:*GLUCOPHAGE 1000MG 11/27/19 17 1:05:15 PM naproxen 500 mg tablet RxNorm: 910284 1 Tablet(s) PO BID 10/21/2016 05/18/2017 Active levothyroxine 25 mcg tablet RxNorm: 092864 1 Tablet(s) PO daily to take with her 200mcg to equal 225 mcg daily 10/13/2016 01/10/2017 Active levothyroxine 50 mcg tablet RxNorm: 406867 1 Tablet(s) PO daily 09/21/2016 10/12/2016 Inactive Invokana 300 mg tablet RxNorm: 5686234 1 Tablet(s) PO daily 09/21/2016 12/19/2016 Inactive metformin 1,000 mg t ablet RxNorm: 184926 TAKE 1 TABLET BY MOUT H TWICE A DAY 09/21/2016 11/25/2016 In active Generic For:*GLUCOPHAGE 1000MG 09/22/19 17 8:53:30 AM levothyroxine 200 mc g tablet RxNorm: 842232 1 Tablet(s) PO daily 09/21/2016 12/19/2016 Inactive Lipitor 40 mg tablet RxNorm: 563998 TAKE 1 TABLET BY MOUTH DAILY 06/23/2016 03/19/2017 Active Generic For:LIPITOR 40MG 06/23/2016 9:1 2:42 AM levothyroxine 50 mcg tablet RxNorm: 910861 1 Tablet(s) PO daily TAKE 1 TABLET BY MOUTH DAILY 06/23/2016 09/20/2016 Inactive Generic For:SYNTHROID 50MCG TAB 06/23/2016 9:22:58 AM metformin 1,000 mg t ablet RxNorm: 257854 TAKE 1 TABLET BY MOUT H TWICE A DAY 06/23/2016 09/20/2016 In active Generic For:*GLUCOPHAGE 1000MG 06/23/19 17 9:12:46 AM levothyroxine 200 mc g tablet RxNorm: 861685 1 Tablet(s) PO daily 04/24/2016 08/21/2016 Inactive naproxen 500 mg tablet RxNorm: 542931 1 Tablet(s) PO BID 03/26/2016 10/20/2016 Inactive levothyroxine 50 mcg tablet RxNorm: 770583 1 Tablet(s) PO daily 03/25/2016 06/23/2016 Inactive Flonase Allergy Reli ef 50 mcg/actuation nasal spray,suspension RxNorm: 2619138 1 [place] NASAL BID 01/14/2016 No Stop Date Active prednisone 20 mg tablet RxNorm: 554674 2 Tablet(s) PO daily 01/14/2016 01/16/2016 Inactive Zithromax Z-Michael 250 mg tablet RxNorm: 472423 Tablet(s) PO 01/14/2016 02/25/2016 Inactive levothyroxine 200 mc g tablet RxNorm: 958999 1 Tablet(s) PO daily 11/25/2015 03/23/2016 Inactive levothyroxine 50 mcg tablet RxNorm: 170075 1 Tablet(s) PO daily 11/25/2015 03/23/2016 Inactive Invokana 300 mg tablet RxNorm: 5305166 1 Tablet(s) PO daily 11/25/2015 09/20/2016 Inactive metformin 1,000 mg t ablet RxNorm: 015718 TAKE 1 TABLET BY MOUT H TWICE A DAY 08/22/2015 05/17/2016 In active Generic For:*GLUCOPHAGE 1000MG N O T I C E PRESCRIPTION PREVIOUSLY AUTHORIZED BY DOCTOR:PEDRO SIMPSON levothyroxine 200 mc g tablet RxNorm: 865417 1 Tablet(s) PO daily 08/02/2015 11/24/2015 Inactive levothyroxine 25 mcg tablet RxNorm: 703422 1 Tablet(s) PO daily 08/02/2015 11/24/2015 Inactive levothyroxine 25 mcg tablet RxNorm: 651280 1 Tablet(s) PO daily 08/02/2015 08/01/2015 Inactive Zithromax Z-Michael 250 mg tablet RxNorm: 326938 Tablet(s) PO 07/31/2015 10/27/2015 Inactive naproxen 500 mg tablet RxNorm: 516995 1 Tablet(s) PO BID 07/31/2015 02/25/2016 Inactive Lipitor 40 mg tablet RxNorm: 027543 TAKE 1 TABLET BY MOUTH DAILY 05/26/2015 05/19/2016 Inactive Generic For:LIPITOR 40MG 05/25/2015 10: 36:19 AM levothyroxine 200 mc g tablet RxNorm: 419733 TAKE 1 TABLET ONCE DA SUKUMAR WITH 50MCG TABLET TO MAKE 250MCG. 05/26/2015 07/30/2015 Inactive Generic For:SYNTHROID 200MC G TAB 05/25/2015 10:36:11 AM Invokana 100 mg tablet RxNorm: 3262727 1 Tablet(s) PO daily 03/15/2015 03/14/2015 Inactive Invokana 100 mg tablet RxNorm: 6702710 1 Tablet(s) PO daily 03/15/2015 11/24/2015 Inactive naproxen 500 mg tablet RxNorm: 816726 1 Tablet(s) PO BID 03/13/2015 07/30/2015 Inactive metformin 1,000 mg t ablet RxNorm: 369106 1 Tablet(s) PO BID 03/13/2015 08/21/2015 Inactive levothyroxine 200 mc g tablet RxNorm: 196229 TAKE 1 TABLET ONCE DA SUKUMAR WITH 50MCG TABLET TO MAKE 250MCG. 02/12/2015 05/12/2015 Inactive Generic For:SYNTHROID 200MC G TAB 02/12/2015 11:50:50 AM Lipitor 40 mg tablet RxNorm: 137225 TAKE 1 TABLET BY MOUTH DAILY 02/12/2015 05/12/2015 Inactive Generic For:LIPITOR 40MG 02/12/2015 11: 50:55 AM levothyroxine 200 mc g tablet RxNorm: 215258 1 Tablet(s) PO daily 11/19/2014 02/11/2015 Inactive levothyroxine 200 mc g tablet RxNorm: 113171 1 Tablet(s) PO daily 11/19/2014 11/18/2014 Inactive Lipitor 40 mg tablet RxNorm: 049706 1 Tablet(s) PO daily call and make appt. 11/19/2014 02/11/2015 In active Lipitor 40 mg tablet RxNorm: 355653 1 Tablet(s) PO daily call and make appt. 11/15/2014 11/18/2014 In active Lipitor 40 mg tablet RxNorm: 432904 1 Tablet(s) PO daily call and make appt. 11/15/2014 11/14/2014 In active levothyroxine 200 mc g tablet RxNorm: 822896 1 Tablet(s) PO daily No Start Date 08/01/2015 Inactive Medication Administered No Medication Administered data Immunizations Vaccine Codes Date Status Influenza CVX: 141 03/21 completed Assessments Condition Codes Effectiv e Dates Other long-term (current) drug therapy ICD-10: Z79.899 ICD-9: V58.69 10/13/2016 Umbilical hernia without obstruction or gangrene ICD-10: K42.9 ICD-9: 553.1 10/13/2016 Other specified hypothyroidism ICD-1 0: E03.8 ICD-9: 244.9 10/13/2016 Type 2 diabetes mellitus with hyperglycemia ICD-10: E11.65 ICD-9: 250.00 10/13/2016 Other acute sinusitis ICD-10: J01.80 ICD-9: 461.8 01/14/2016 Other allergic rhinitis ICD-10: J30. 89 ICD-9: 477.8 01/14/2016 Wheezing ICD-10: R06.2 ICD-9: 786.07 01/14/2016 Encounter for screening mammogram for ma lignant neoplasm of breast ICD-10: Z12.31 ICD-9: V76.12 11/04/2015 Mixed hyperlipidemia ICD-10: E78.2 ICD-9: 272.4 07/31/2015 Achilles tendinitis, left leg ICD-10 : M76.62 [...] Observation Code Item Item Code Result Date %Hba1C Lul935 % HbA1c 01058-4 6.0 % 10/01/2016 %Hba1C Tzl431 Gluc Ave 126 mg/dL 10/01/2016 Tsh Ord6 hTSH II 0.19 uIU/mL 10/01/2016 Comp Metabolic Zsc712 NA 139 mEq/L 10/01/2016 Comp Metabolic Jvj051 K 4.6 mEq/L 10/01/2016 Comp Metabolic Ill568 CL 102 mEq/L 10/01/2016 Comp Metabolic Ejn714 CO2 28.0 mEq/L 10/01/2016 Comp Metabolic Bud695 AN ION GAP 14 10/01/2016 Comp Metabolic Gif889 GL UCOSE 93 mg/dL 10/01/2016 Comp Metabolic Wze935 Cr eat 0.6 mg/dL 10/01/2016 Comp Metabolic Ahi813 eG FR 109 ml/min/1.73m2 09/19 Comp Metabolic Vid693 BUN 20 mg/dL 10/01/2016 Comp Metabolic Chx993 B/ C Ratio 31.7 Ratio 10/01/2016 Comp Metabolic Mxc213 CA LCIUM 9.8 mg/dL 10/01/2016 Comp Metabolic Nsk025 AL K PHOS 114 U/L 10/01/2016 Comp Metabolic Psf513 T(SGOT) 11 U/L 10/01/2016 Comp Metabolic Oah879 AL T(SGPT) 12 U/L 10/01/2016 Comp Metabolic Jsd356 BI LI T 0.4 mg/dL 10/01/2016 Comp Metabolic Gqq286 AL BUMIN 4.3 g/dL 10/01/2016 Comp Metabolic Lnv929 TP RO 7.2 g/dL 10/01/2016 Comp Metabolic Xou409 GL OB 2.9 g/dL 10/01/2016 Comp Metabolic Bev277 A/ G Ratio 1.5 Ratio 10/01/2016 Comp Metabolic Bmo404 Os mo 280 mOsmo 10/01/2016 Free T4 Wyc013 FREE T4 1.37 ng/dL 10/01/2016 Lipid Ord30 CHOL 161 mg/dL 10/01/2016 Lipid Ord30 HDL 43.0 mg/dl 10/01/2016 Lipid Ord30 TRIG 150 mg/dL 10/01/2016 Lipid Ord30 LDL 88 mg/dL 10/01/2016 Lipid Ord30 C/HDL 3.7 Ratio 10/01/2016 Cbc With Differential Ord2 WBC 7.72 K/ul 10/01/2016 Cbc With Differential Ord2 RBC 4.73 M/ul 10/01/2016 Cbc With Differential Ord2 HGB 13.2 g/dl 10/01/2016 Cbc With Differential Ord2 Neut% 64.5 % 10/01/2016 Cbc With Differential Ord2 HCT 41.8 % 10/01/2016 Cbc With Differential Ord2 MCV 88.4 fl 10/01/2016 Cbc With Differential Ord2 Lymph% 21.9 % 10/01/2016 Cbc With Differential Ord2 MCH 27.9 pg 10/01/2016 Cbc With Differential Ord2 Charles% 8.5 % 10/01/2016 Cbc With Differential Ord2 [...] 1.69 K/ul 10/01/2016 Cbc With Differential Ord2 Charles ABS# 0.7 K/ul 10/01/2016 Cbc With Differential [...] 22.7 pg 04/06/2016 Cbc With Differential Ord2 Charles% 8.2 % 04/06/2016 Cbc With Differential Ord2 [...] 1.48 K/ul 04/06/2016 Cbc With Differential Ord2 Charles ABS# 0.5 K/ul 04/06/2016 Cbc With Differential Ord2 Eos ABS# 0.4 K/ul 04/06/2016 Cbc With Differential Ord2 Baso ABS# 0.0 K/ul 04/06/2016 Ferritin Ord22 FERRITIN 5.8 ng/mL 04/06/2016 Free T4 Keo305 FREE T4 1.16 ng/dL 03/16/2016 %Hba1C Srr226 % HbA1c 20492-4 7.0 % 03/16/2016 %Hba1C Uij470 Gluc Ave 154 mg/dL 03/16/2016 Cbc With Differential Ord2 WBC 13.14 K/ul 03/16/2016 Cbc With Differential Ord2 RBC 4.61 M/ul 03/16/2016 Cbc With Differential Ord2 HGB 10.7 g/dl 03/16/2016 Cbc With Differential Ord2 Neut% 78.5 % 03/16/2016 Cbc With Differential Ord2 HCT 35.4 % 03/16/2016 Cbc With Differential Ord2 MCV 76.8 fl 03/16/2016 Cbc With Differential Ord2 Lymph% 13.3 % 03/16/2016 Cbc With Differential Ord2 MCH 23.2 pg 03/16/2016 Cbc With Differential Ord2 Charles% 4.8 % 03/16/2016 Cbc With Differential Ord2 [...] 1.75 K/ul 03/16/2016 Cbc With Differential Ord2 Charles ABS# 0.6 K/ul 03/16/2016 Cbc With Differential Ord2 Eos ABS# 0.4 K/ul 03/16/2016 Cbc With Differential Ord2 Baso ABS# 0.0 K/ul 03/16/2016 Tsh Ord6 hTSH II 1.39 uIU/mL 03/16/2016 Tsh Ord6 hTSH II 10.28 uIU/mL 11/14/2015 Free T4 Ghk153 FREE T4 0.79 ng/dL 11/14/2015 Lipid Ord30 CHOL 153 mg/dL 11/14/2015 Lipid Ord30 HDL 44.0 mg/dl 11/14/2015 Lipid Ord30 TRIG 120 mg/dL 11/14/2015 Lipid Ord30 LDL 85 mg/dL 11/14/2015 Lipid Ord30 C/HDL 3.5 Ratio 11/14/2015 Cbc With Differential Ord2 WBC 11.83 K/ul 11/14/2015 Cbc With Differential Ord2 RBC 4.76 M/ul 11/14/2015 Cbc With Differential Ord2 HGB 11.6 g/dl 11/14/2015 Cbc With Differential Ord2 Neut% 75.3 % 11/14/2015 Cbc With Differential Ord2 HCT 37.7 % 11/14/2015 Cbc With Differential Ord2 MCV 79.2 fl 11/14/2015 Cbc With Differential Ord2 Lymph% 14.5 % 11/14/2015 Cbc With Differential Ord2 MCH 24.4 pg 11/14/2015 Cbc With Differential Ord2 Charles% 6.6 % 11/14/2015 Cbc With Differential Ord2 [...] 1.72 K/ul 11/14/2015 Cbc With Differential Ord2 Charles ABS# 0.8 K/ul 11/14/2015 Cbc With Differential Ord2 Eos ABS# 0.4 K/ul 11/14/2015 Cbc With Differential Ord2 Baso ABS# 0.0 K/ul 11/14/2015 Comp Metabolic Jyq311 NA 136 mEq/L 11/14/2015 Comp Metabolic Qyl032 K 4.4 mEq/L 11/14/2015 Comp Metabolic Lyb730 CL 101 mEq/L 11/14/2015 Comp Metabolic Jwh249 CO2 27.0 mEq/L 11/14/2015 Comp Metabolic Qfg289 AN ION GAP 12 11/14/2015 Comp Metabolic Qzz960 GL UCOSE 107 mg/dL 11/14/2015 Comp Metabolic Jon449 Cr eat 0.6 mg/dL 11/14/2015 Comp Metabolic Lov963 eG FR 125 ml/min/1.73m2 10/20 Comp Metabolic Lqo546 BUN 14 mg/dL 11/14/2015 Comp Metabolic Nwy281 B/ C Ratio 25.0 Ratio 11/14/2015 Comp Metabolic Xcj807 CA LCIUM 9.6 mg/dL 11/14/2015 Comp Metabolic Kxd476 AL K PHOS 104 U/L 11/14/2015 Comp Metabolic Hmi462 T(SGOT) 16 U/L 11/14/2015 Comp Metabolic Zuh786 AL T(SGPT) 14 U/L 11/14/2015 Comp Metabolic Uag225 BI LI T 0.3 mg/dL 11/14/2015 Comp Metabolic Ucj295 AL BUMIN 4.0 g/dL 11/14/2015 Comp Metabolic Ghb403 TP RO 7.2 g/dL 11/14/2015 Comp Metabolic Dxk717 GL OB 3.2 g/dL 11/14/2015 Comp Metabolic Qof137 A/ G Ratio 1.3 Ratio 11/14/2015 Comp Metabolic Eov298 Os mo 273 mOsmo 11/14/2015 %Hba1C Qeq445 % HbA1c 68545-8 7.0 % 11/14/2015 %Hba1C Lsp400 Gluc Ave 154 mg/dL 11/14/2015 Free T4 Vmd677 FREE T4 0.49 ng/dL 08/02/2015 Tsh Ord6 hTSH II 44.41 uIU/mL 07/31/2015 %Hba1C Jpq907 % HbA1c 06273-8 6.7 % 07/31/2015 %Hba1C Ban823 Gluc Ave 146 mg/dL 07/31/2015 Cbc With [...] Differential Ord2 RDW 14.9 % 03/13/2015 %Hba1C Gjo747 % HbA1c 55673-6 6.8 % 03/13/2015 %Hba1C Obt212 Gluc Ave 148 mg/dL 03/13/2015 Tsh Ord6 hTSH II 0.95 uIU/mL 03/13/2015 Lipid Ord30 CHOL 146 mg/dL 03/13/2015 Lipid Ord30 HDL 40.0 mg/dl 03/13/2015 Lipid Ord30 TRIG 137 mg/dL 03/13/2015 Lipid Ord30 LDL 79 mg/dL 03/13/2015 Lipid Ord30 C/HDL 3.7 Ratio 03/13/2015 Comp Metabolic Gel491 NA 135 mEq/L 03/13/2015 Comp Metabolic Xqt588 K 4.5 mEq/L 03/13/2015 Comp Metabolic Hvp082 CL 99 mEq/L 03/13/2015 Comp Metabolic Jko542 CO2 29.0 mEq/L 03/13/2015 Comp Metabolic Csk777 AN ION GAP 12 03/13/2015 Comp Metabolic Vxh741 GL UCOSE 98 mg/dL 03/13/2015 Comp Metabolic Ezm436 Cr eat 0.7 mg/dL 03/13/2015 Comp Metabolic Urt423 eG FR 100 ml/min/1.73m2 02/20 Comp Metabolic Sjr917 BUN 13 mg/dL 03/13/2015 Comp Metabolic Voo177 B/ C Ratio 19.1 Ratio 03/13/2015 Comp Metabolic Eyl757 CA LCIUM 9.8 mg/dL 03/13/2015 Comp Metabolic Uva086 AL K PHOS 91 U/L 03/13/2015 Comp Metabolic Lqx812 T(SGOT) 10 U/L 03/13/2015 Comp Metabolic Ufg525 AL T(SGPT) 10 U/L 03/13/2015 Comp Metabolic Hzb118 BI LI T 0.4 mg/dL 03/13/2015 Comp Metabolic Skz600 AL BUMIN 4.1 g/dL 03/13/2015 Comp Metabolic Ycc406 TP RO 6.9 g/dL 03/13/2015 Comp Metabolic Qpx155 GL OB 2.8 g/dL 03/13/2015 Comp Metabolic Fbu015 A/ G Ratio 1.5 Ratio 03/13/2015 Comp Metabolic Hgj203 Os mo 270 mOsmo 03/13/2015 Free T4 Zbf530 FREE T4 1.25 ng/dL 03/13/2015 Review of Systems System Result Effective Dates Constitutional No recent illness 10/13/2016 Constitutional No [...] Date Vital 10/13/2016 Blood Pressure 1: 134/82 Code: 8480-6 BMI: 43.6 Code: 46723-9 Heart Rate 1: 97 bpm Height: 5'3" SpO2: 97% Weight: 246 lbs 01/14/2016 Blood Pressure 1: 132/78 Code: 8480-6 BMI: 45.7 Code: 41119-9 Heart Rate 1: 90 bpm Height: 5'3" SpO2: 98% Weight: 258 lbs 07/31/2015 Blood Pressure 1: 142/80 Code: 8480-6 BMI: 45.7 Code: 89483-6 Heart Rate 1: 78 bpm Height: 5'3" SpO2: 96% Weight: 258 lbs 04/04/2015 Blood Pressure 1: 130/82 Code: 8480-6 BMI: 44.9 Code: 89663-1 Heart Rate 1: 90 bpm Height: 5'3" SpO2: 96% Weight: 253 lbs 5 oz 03/13/2015 Blood Pressure 1: 140/86 Code: 8480-6 BMI: 45.2 Code: 02155-7 Heart Rate 1: 87 bpm Height: 5'3" SpO2: 93% Weight: 255 lbs Functional Status No Functional Status data History of Present Illness Symptom Name Status Resu lt Effective Date Notes hypothyroid Location at the level of the thyroid 10/13/2016 None 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 PATIENT, LEVEL IV Diagnosis: Type 2 diabetes mellitus with hyperglycemia[ICD10: E11.65] Diagnosis: Other specified hypothyroidism[ICD10: E03.8] Diagnosis: Other long-term (current) drug therapy[ICD10: Z79.899] Diagnosis: Umbilical hernia without obstruction or gangrene[ICD10: K42.9] Anyi Cano MD, [facility] CPT-4: 30739 10/13/2016 33612 EST. PATIENT, LEVEL IV Diagnosis: Other acute sinusitis[ICD10: J01.80] Diagnosis: Other allergic rhinitis[ICD10: J30.89] Diagnosis: Wheezing[ICD10: R06.2] Anyi Cano MD, [facility] CPT-4: 21367 01/14/2016 47920 EST. PATIENT, LEVEL IV Diagnosis: Other long-term (current) drug therapy[ICD10: Z79.899] Diagnosis: Type 2 diabetes mellitus with hyperglycemia[ICD10: E11.65] Diagnosis: Other specified hypothyroidism[ICD10: E03.8] Diagnosis: Mixed hyperlipidemia[ICD10: E78.2] Anyi Cano MD, [facility] CPT-4: 11938 07/31/2015 ([id number]) 90429 EST. P ATIENT, LEVEL III Diagnosis: Achilles tendinitis, left leg[ICD10: M76.62] Beba Cano MD, [facility] CPT-4: 27022 04/04/2015 ([id number]) OFFICE VISI T, NEW - LEVEL 4 Diagnosis: HYPERLIPIDEMIA[ICD9: 272.4] Diagnosis: DIABETES TYPE II[ICD9: 250.00] Diagnosis: HYPOTHYROIDISM[ICD9: 244.9] Diagnosis: ACHILLES TENDINITIS[ICD9: 726.71] Beba Cano MD, [facility] CPT-4: 80641 03/13/2015 Plan of Care Planned Activity Notes C odes Status Date Referral: Arvind Briseno1 [address] [facility] Referral Initiated 10/27/2016 Referral: Arvind Briseno [address] [facility] Referral Initiated 10/27/2016 Visit Plan: Umbilical hernia - will refe r to Dr. Briseno for evaluationDiabetes Mellitus - controlled - per recent FSBS [...] glucose readings are starting to become less controlled.Hypothyroidism - pt with chronic hypothyroidism, continue with current medication, will monitor pt to signs or symptoms of lack of adequate supplementation. Pt is to continue with current dose of medication unless directed otherwise. Check labs at regular intervals wither q 3 months or q 6 months based on previous levels of control. 2016 Appointment: Anyi Velázquez WPtel: [phone] (15 min) Moderate 10/13/2016 Patient Education: Patient Medication Summary Completed 10/13/2016 Care Plan: Referral Order SNOMED-CT : [id number] Pending 10/13/2016 Visit Plan: Sinusitis - Pt has acute inf ection - pain in face, maxillary region, Pt informed to use decongestant, RX given to patient, sinus rinses also recommended. Call if symptoms do not show improvement.Allergies - chronic - recommended pt to use allergy medication as prescribed. Pt has been counseled as to the appropriate use of the medication. Pt to call if allergy symptoms are not controlled with the medication.If using nasal spray, instructions as follows: Nasal spray- use twice daily, one spray per nostril twice daily, after 30 minutes, rinse out nose with saline spray.. Use opposite hand per nostril to spray in the nasal steroid allergy spray. 01/14/2016 Appointment: Melissa Newman WPtel: [address] [phone] (30 min) Complex 01/14/2016 Patient Education: Patient Medication Summary Completed 01/14/2016 Patient Education: Obesity Completed 01/14/2016 Patient Education: Patient Medication Summary Completed 11/04/2015 Appointment: (30 min) Complex 08/02/2015 Patient Education: Patient Medication Summary Completed 08/02/2015 Visit Plan: Sinusitis - Pt has acute inf ection - pain in face, maxillary region, Pt informed to use decongestant, RX given to patient, sinus rinses also recommended. Call if symptoms do not show improvement.Allergies - chronic - recommended pt to use allergy medication as prescribed. Pt has been counseled as to the appropriate use of the medication. Pt to call if allergy symptoms are not controlled with the medication.If using nasal spray, instructions as follows: Nasal spray- use twice daily, one spray per nostril twice daily, after 30 minutes, rinse out nose with saline spray.. Use opposite hand per nostril to spray in the nasal steroid allergy spray.Diabetes Mellitus - controlled - per recent FSBS [...] glucose readings are starting to become less controlled.Hypothyroidism - pt with chronic hypothyroidism, continue with [...] Completed 07/31/2015 Visit Plan: Achilles Tendonitis - Recomm ended pt to wear boot when not at work, pt released for full duty at work. Continue with naproxen. Call if not improving. 04/04/2015 Appointment: Beba Cano WPtel: [address] [place], [place] [phone] (15 min) Moderate 04/04/2015 Patient Education: Patient Medication Summary Completed 04/04/2015 Visit Plan: Hypothyroidism - pt with chr onic hypothyroidism, continue with current medication, will monitor pt to signs or symptoms of lack of adequate supplementation. Pt is to continue with current dose of medication unless directed otherwise. Check labs at regular intervals wither q 3 months or q 6 months based on previous levels of control.Diabetes Mellitus - controlled - per recent FSBS [...] glucose readings are starting to become less controlled.Hyperlipidemia - pt has been counseled about appropriate [...] and to assure normal liver response to medications.Achilles tendonitis - rx for walking boot, use while ambulating - pt needs to be off of work x 4 weeks, will re-eval pt in the next 1 month, may be able to release back to work at that appt. 03/13/2015 Appointment: Beba Cano WPtel: [address] [place], [place] [phone] [place] ([place]) New Patient 03/13/2015 Patient Education: Patient Medication Summary Completed 03/13/2015 Patient Education: Hypertension Completed 03/13/2015 Patient Education: Patient Medication Summary Completed 10/24/2014 Referral: Arvind Briseno [address] [facility] Referral Initiated Instructions Comment . [...]
--- OUTSIDE RECORDS SUMMARY | 2020-01-06 14:41 | XMS REPORT | CCD ---
Author Author Lucia Cano Organization Beba Cano MD, [facility] Address [address] [place] [address] Phone Care Team Providers Care Letter Of Credit Clerk Name Role Phone PP Unavailable CCM Unavailable Summary Purpose Interface Exchange Insurance Providers Payer name Policy type / Coverage type Covered alliance party ID Effective Begin Date Effective End Date WPS Medicare Part B Medicare Part B [id number] Unknown Unknown [employer] - other than primary Medi care Part B [id number] Unknown Unkn own Family history Father Diagnosis [...] employed [employer] 04/04/[address]: 439915158 Never smoker 04/04/[address]: 991248482 Never drinks alcohol 04/04/2015 Has the patient [...] Fill Instructions Invokana 300 mg tablet RxNorm: 1431905 TAKE 1 TABLET BY MOUTH DAILY 12/21/2016 09/16/2017 Ac tive 12/21/2016 9:03:03 AM levothyroxine 200 mc g tablet RxNorm: 938233 1 Tablet(s) PO daily 12/21/2016 09/16/2017 Active metformin 1,000 mg t ablet RxNorm: 579959 TAKE 1 TABLET BY MOUT H TWICE A DAY 11/26/2016 11/20/2017 Ac tive Generic For:*GLUCOPHAGE 1000MG 11/27/19 17 1:05:15 PM naproxen 500 mg tablet RxNorm: 091866 1 Tablet(s) PO BID 10/21/2016 05/18/2017 Active levothyroxine 25 mcg tablet RxNorm: 822899 1 Tablet(s) PO daily to take with her 200mcg to equal 225 mcg daily 10/13/2016 01/10/2017 Active levothyroxine 50 mcg tablet RxNorm: 533517 1 Tablet(s) PO daily 09/21/2016 10/12/2016 Inactive Invokana 300 mg tablet RxNorm: 0227320 1 Tablet(s) PO daily 09/21/2016 12/19/2016 Inactive metformin 1,000 mg t ablet RxNorm: 218093 TAKE 1 TABLET BY MOUT H TWICE A DAY 09/21/2016 11/25/2016 In active Generic For:*GLUCOPHAGE 1000MG 09/22/19 17 8:53:30 AM levothyroxine 200 mc g tablet RxNorm: 204381 1 Tablet(s) PO daily 09/21/2016 12/19/2016 Inactive Lipitor 40 mg tablet RxNorm: 174634 TAKE 1 TABLET BY MOUTH DAILY 06/23/2016 03/19/2017 Active Generic For:LIPITOR 40MG 06/23/2016 9:1 2:42 AM levothyroxine 50 mcg tablet RxNorm: 922164 1 Tablet(s) PO daily TAKE 1 TABLET BY MOUTH DAILY 06/23/2016 09/20/2016 Inactive Generic For:SYNTHROID 50MCG TAB 06/23/2016 9:22:58 AM metformin 1,000 mg t ablet RxNorm: 930869 TAKE 1 TABLET BY MOUT H TWICE A DAY 06/23/2016 09/20/2016 In active Generic For:*GLUCOPHAGE 1000MG 06/23/19 17 9:12:46 AM levothyroxine 200 mc g tablet RxNorm: 483839 1 Tablet(s) PO daily 04/24/2016 08/21/2016 Inactive naproxen 500 mg tablet RxNorm: 229486 1 Tablet(s) PO BID 03/26/2016 10/20/2016 Inactive levothyroxine 50 mcg tablet RxNorm: 480586 1 Tablet(s) PO daily 03/25/2016 06/23/2016 Inactive Flonase Allergy Reli ef 50 mcg/actuation nasal spray,suspension RxNorm: 5961545 1 [place] NASAL BID 01/14/2016 No Stop Date Active prednisone 20 mg tablet RxNorm: 985483 2 Tablet(s) PO daily 01/14/2016 01/16/2016 Inactive Zithromax Z-Michael 250 mg tablet RxNorm: 172245 Tablet(s) PO 01/14/2016 02/25/2016 Inactive levothyroxine 200 mc g tablet RxNorm: 647864 1 Tablet(s) PO daily 11/25/2015 03/23/2016 Inactive levothyroxine 50 mcg tablet RxNorm: 413707 1 Tablet(s) PO daily 11/25/2015 03/23/2016 Inactive Invokana 300 mg tablet RxNorm: 6011610 1 Tablet(s) PO daily 11/25/2015 09/20/2016 Inactive metformin 1,000 mg t ablet RxNorm: 044649 TAKE 1 TABLET BY MOUT H TWICE A DAY 08/22/2015 05/17/2016 In active Generic For:*GLUCOPHAGE 1000MG N O T I C E PRESCRIPTION PREVIOUSLY AUTHORIZED BY DOCTOR:PEDRO SIMPSON levothyroxine 200 mc g tablet RxNorm: 838607 1 Tablet(s) PO daily 08/02/2015 11/24/2015 Inactive levothyroxine 25 mcg tablet RxNorm: 987330 1 Tablet(s) PO daily 08/02/2015 11/24/2015 Inactive levothyroxine 25 mcg tablet RxNorm: 816829 1 Tablet(s) PO daily 08/02/2015 08/01/2015 Inactive Zithromax Z-Michael 250 mg tablet RxNorm: 315244 Tablet(s) PO 07/31/2015 10/27/2015 Inactive naproxen 500 mg tablet RxNorm: 495931 1 Tablet(s) PO BID 07/31/2015 02/25/2016 Inactive Lipitor 40 mg tablet RxNorm: 612347 TAKE 1 TABLET BY MOUTH DAILY 05/26/2015 05/19/2016 Inactive Generic For:LIPITOR 40MG 05/25/2015 10: 36:19 AM levothyroxine 200 mc g tablet RxNorm: 785362 TAKE 1 TABLET ONCE DA SUKUMAR WITH 50MCG TABLET TO MAKE 250MCG. 05/26/2015 07/30/2015 Inactive Generic For:SYNTHROID 200MC G TAB 05/25/2015 10:36:11 AM Invokana 100 mg tablet RxNorm: 3502607 1 Tablet(s) PO daily 03/15/2015 03/14/2015 Inactive Invokana 100 mg tablet RxNorm: 1395190 1 Tablet(s) PO daily 03/15/2015 11/24/2015 Inactive naproxen 500 mg tablet RxNorm: 399510 1 Tablet(s) PO BID 03/13/2015 07/30/2015 Inactive metformin 1,000 mg t ablet RxNorm: 758426 1 Tablet(s) PO BID 03/13/2015 08/21/2015 Inactive levothyroxine 200 mc g tablet RxNorm: 715353 TAKE 1 TABLET ONCE DA SUKUMAR WITH 50MCG TABLET TO MAKE 250MCG. 02/12/2015 05/12/2015 Inactive Generic For:SYNTHROID 200MC G TAB 02/12/2015 11:50:50 AM Lipitor 40 mg tablet RxNorm: 427115 TAKE 1 TABLET BY MOUTH DAILY 02/12/2015 05/12/2015 Inactive Generic For:LIPITOR 40MG 02/12/2015 11: 50:55 AM levothyroxine 200 mc g tablet RxNorm: 210577 1 Tablet(s) PO daily 11/19/2014 02/11/2015 Inactive levothyroxine 200 mc g tablet RxNorm: 602731 1 Tablet(s) PO daily 11/19/2014 11/18/2014 Inactive Lipitor 40 mg tablet RxNorm: 488299 1 Tablet(s) PO daily call and make appt. 11/19/2014 02/11/2015 In active Lipitor 40 mg tablet RxNorm: 744084 1 Tablet(s) PO daily call and make appt. 11/15/2014 11/18/2014 In active Lipitor 40 mg tablet RxNorm: 008146 1 Tablet(s) PO daily call and make appt. 11/15/2014 11/14/2014 In active levothyroxine 200 mc g tablet RxNorm: 834182 1 Tablet(s) PO daily No Start Date 08/01/2015 Inactive Medication Administered No Medication Administered data Immunizations Vaccine Codes Date Status Influenza CVX: 141 03/21 completed Assessments Condition Codes Effectiv e Dates Other group home (current) drug therapy ICD-10: Z79.899 ICD-9: V58.69 [...] Item Item Code Result Date Tsh Ord6 hTSH II 0.55 uIU/mL 12/30/2016 %Hba1C Ugi678 % HbA1c 24448-5 6.0 % 10/01/2016 %Hba1C Uvw396 Gluc Ave 126 mg/dL 10/01/2016 Tsh Ord6 hTSH II 0.19 uIU/mL 10/01/2016 Comp Metabolic Pze938 NA 139 mEq/L 10/01/2016 Comp Metabolic Yva566 K 4.6 mEq/L 10/01/2016 Comp Metabolic Jtr727 CL 102 mEq/L 10/01/2016 Comp Metabolic Aad961 CO2 28.0 mEq/L 10/01/2016 Comp Metabolic Nrl761 AN ION GAP 14 10/01/2016 Comp Metabolic Eek216 GL UCOSE 93 mg/dL 10/01/2016 Comp Metabolic Rha324 Cr eat 0.6 mg/dL 10/01/2016 Comp Metabolic Oes520 eG FR 109 ml/min/1.73m2 09/19 Comp Metabolic Tfl998 BUN 20 mg/dL 10/01/2016 Comp Metabolic Rvi219 B/ C Ratio 31.7 Ratio 10/01/2016 Comp Metabolic Xaa535 CA LCIUM 9.8 mg/dL 10/01/2016 Comp Metabolic Yzb066 AL K PHOS 114 U/L 10/01/2016 Comp Metabolic Srm181 T(SGOT) 11 U/L 10/01/2016 Comp Metabolic Ikb742 AL T(SGPT) 12 U/L 10/01/2016 Comp Metabolic Omj035 BI LI T 0.4 mg/dL 10/01/2016 Comp Metabolic Bbx986 AL BUMIN 4.3 g/dL 10/01/2016 Comp Metabolic Lip496 TP RO 7.2 g/dL 10/01/2016 Comp Metabolic Owq946 GL OB 2.9 g/dL 10/01/2016 Comp Metabolic Yqa331 A/ G Ratio 1.5 Ratio 10/01/2016 Comp Metabolic Wbc144 Os mo 280 mOsmo 10/01/2016 Free T4 Uhx597 FREE T4 1.37 ng/dL 10/01/2016 Lipid Ord30 [...] 41.8 % 10/01/2016 Cbc With Differential Ord2 Lymph% 21.9 % 10/01/2016 Cbc With Differential Ord2 MCV 88.4 fl 10/01/2016 Cbc With Differential Ord2 MCH 27.9 pg 10/01/2016 Cbc With Differential Ord2 [place]% 8.5 % 10/01/2016 Cbc With Differential Ord2 [...] 1.69 K/ul 10/01/2016 Cbc With Differential Ord2 [place] ABS# 0.7 K/ul 10/01/2016 Cbc With Differential [...] 60.6 % 04/06/2016 Cbc With Differential Ord2 Lymph% 24.4 % 04/06/2016 Cbc With Differential Ord2 MCV 75.3 fl 04/06/2016 Cbc With Differential Ord2 MCH 22.7 pg 04/06/2016 Cbc With Differential Ord2 [place]% 8.2 % 04/06/2016 Cbc With Differential Ord2 Eos% 6.3 % 04/06/2016 Cbc With Differential Ord2 MCHC 30.1 pg 04/06/2016 Cbc With Differential Ord2 PLT 482 K/ul 04/06/2016 Cbc With Differential Ord2 Baso% 0.5 % 04/06/2016 Cbc With Differential Ord2 Neut ABS# 3.68 K/ul 04/06/2016 Cbc With Differential Ord2 RDW 17.0 % 04/06/2016 Cbc With Differential Ord2 Lymph ABS# 1.48 K/ul 04/06/2016 Cbc With Differential Ord2 [place] ABS# 0.5 K/ul 04/06/2016 Cbc With Differential Ord2 Eos ABS# 0.4 K/ul 04/06/2016 Cbc With Differential Ord2 Baso ABS# 0.0 K/ul 04/06/2016 Ferritin Ord22 FERRITIN 5.8 ng/mL 04/06/2016 Free T4 Jvq283 FREE T4 1.16 ng/dL 03/16/2016 %Hba1C Bre963 % HbA1c 08825-8 7.0 % 03/16/2016 %Hba1C Wac772 Gluc Ave 154 mg/dL 03/16/2016 Cbc With Differential Ord2 WBC 13.14 K/ul 03/16/2016 Cbc With Differential Ord2 RBC 4.61 M/ul 03/16/2016 Cbc With Differential Ord2 HGB 10.7 g/dl 03/16/2016 Cbc With Differential Ord2 Neut% 78.5 % 03/16/2016 Cbc With Differential Ord2 HCT 35.4 % 03/16/2016 Cbc With Differential Ord2 Lymph% 13.3 % 03/16/2016 Cbc With Differential Ord2 MCV 76.8 fl 03/16/2016 Cbc With Differential Ord2 MCH 23.2 pg 03/16/2016 Cbc With Differential Ord2 [place]% 4.8 % 03/16/2016 Cbc With Differential Ord2 Eos% 3.1 % 03/16/2016 Cbc With Differential Ord2 MCHC 30.2 pg 03/16/2016 Cbc With Differential Ord2 Baso% 0.3 % 03/16/2016 Cbc With Differential Ord2 PLT 463 K/ul 03/16/2016 Cbc With Differential Ord2 Neut ABS# 10.31 K/ul 03/16/2016 Cbc With Differential Ord2 RDW 16.8 % 03/16/2016 Cbc With Differential Ord2 Lymph ABS# 1.75 K/ul 03/16/2016 Cbc With Differential Ord2 [place] ABS# 0.6 K/ul 03/16/2016 Cbc With Differential Ord2 Eos ABS# 0.4 K/ul 03/16/2016 Cbc With Differential Ord2 Baso ABS# 0.0 K/ul 03/16/2016 Tsh Ord6 hTSH II 1.39 uIU/mL 03/16/2016 Tsh Ord6 hTSH II 10.28 uIU/mL 11/14/2015 Free T4 Tzx132 FREE T4 0.79 ng/dL 11/14/2015 Lipid Ord30 [...] 24.4 pg 11/14/2015 Cbc With Differential Ord2 [place]% 6.6 % 11/14/2015 Cbc With Differential Ord2 [...] 1.72 K/ul 11/14/2015 Cbc With Differential Ord2 [place] ABS# 0.8 K/ul 11/14/2015 Cbc With Differential Ord2 Eos ABS# 0.4 K/ul 11/14/2015 Cbc With Differential Ord2 Baso ABS# 0.0 K/ul 11/14/2015 Comp Metabolic Pbf093 NA 136 mEq/L 11/14/2015 Comp Metabolic Lef235 K 4.4 mEq/L 11/14/2015 Comp Metabolic Uxh185 CL 101 mEq/L 11/14/2015 Comp Metabolic Iys534 CO2 27.0 mEq/L 11/14/2015 Comp Metabolic Fkq056 AN ION GAP 12 11/14/2015 Comp Metabolic Jhh969 GL UCOSE 107 mg/dL 11/14/2015 Comp Metabolic Gem445 Cr eat 0.6 mg/dL 11/14/2015 Comp Metabolic Loq648 eG FR 125 ml/min/1.73m2 10/20 Comp Metabolic Ikk568 BUN 14 mg/dL 11/14/2015 Comp Metabolic Gdi230 B/ C Ratio 25.0 Ratio 11/14/2015 Comp Metabolic Rnn388 CA LCIUM 9.6 mg/dL 11/14/2015 Comp Metabolic Tzt779 AL K PHOS 104 U/L 11/14/2015 Comp Metabolic Qqu179 T(SGOT) 16 U/L 11/14/2015 Comp Metabolic Wkv582 AL T(SGPT) 14 U/L 11/14/2015 Comp Metabolic Pah296 BI LI T 0.3 mg/dL 11/14/2015 Comp Metabolic Hku565 AL BUMIN 4.0 g/dL 11/14/2015 Comp Metabolic Kwd662 TP RO 7.2 g/dL 11/14/2015 Comp Metabolic Pak391 GL OB 3.2 g/dL 11/14/2015 Comp Metabolic Utp055 A/ G Ratio 1.3 Ratio 11/14/2015 Comp Metabolic Fqf742 Os mo 273 mOsmo 11/14/2015 %Hba1C Hua344 % HbA1c 77347-6 7.0 % 11/14/2015 %Hba1C Dej662 Gluc Ave 154 mg/dL 11/14/2015 Free T4 Drc926 FREE T4 0.49 ng/dL 08/02/2015 Tsh Ord6 hTSH II 44.41 uIU/mL 07/31/2015 %Hba1C Nqp823 % HbA1c 08534-7 6.7 % 07/31/2015 %Hba1C Gvv805 Gluc Ave 146 mg/dL 07/31/2015 Cbc With [...] Differential Ord2 RDW 14.9 % 03/13/2015 %Hba1C Fsq512 % HbA1c 68294-0 6.8 % 03/13/2015 %Hba1C Imk274 Gluc Ave 148 mg/dL 03/13/2015 Tsh Ord6 hTSH II 0.95 uIU/mL 03/13/2015 Lipid Ord30 CHOL 146 mg/dL 03/13/2015 Lipid Ord30 HDL 40.0 mg/dl 03/13/2015 Lipid Ord30 TRIG 137 mg/dL 03/13/2015 Lipid Ord30 LDL 79 mg/dL 03/13/2015 Lipid Ord30 C/HDL 3.7 Ratio 03/13/2015 Comp Metabolic Lxk981 NA 135 mEq/L 03/13/2015 Comp Metabolic Fji541 K 4.5 mEq/L 03/13/2015 Comp Metabolic Qjf481 CL 99 mEq/L 03/13/2015 Comp Metabolic Aci169 CO2 29.0 mEq/L 03/13/2015 Comp Metabolic Gpy032 AN ION GAP 12 03/13/2015 Comp Metabolic Yad947 GL UCOSE 98 mg/dL 03/13/2015 Comp Metabolic Iza701 Cr eat 0.7 mg/dL 03/13/2015 Comp Metabolic Ipt627 eG FR 100 ml/min/1.73m2 02/20 Comp Metabolic Rzf095 BUN 13 mg/dL 03/13/2015 Comp Metabolic Cwi554 B/ C Ratio 19.1 Ratio 03/13/2015 Comp Metabolic Oek066 CA LCIUM 9.8 mg/dL 03/13/2015 Comp Metabolic Vjc041 AL K PHOS 91 U/L 03/13/2015 Comp Metabolic Xpb171 T(SGOT) 10 U/L 03/13/2015 Comp Metabolic Iyn882 AL T(SGPT) 10 U/L 03/13/2015 Comp Metabolic Lpc932 BI LI T 0.4 mg/dL 03/13/2015 Comp Metabolic Jaq333 AL BUMIN 4.1 g/dL 03/13/2015 Comp Metabolic Apr303 TP RO 6.9 g/dL 03/13/2015 Comp Metabolic Ryg440 GL OB 2.8 g/dL 03/13/2015 Comp Metabolic Ycy650 A/ G Ratio 1.5 Ratio 03/13/2015 Comp Metabolic Tzi341 Os mo 270 mOsmo 03/13/2015 Free T4 Hjx276 FREE T4 1.25 ng/dL 03/13/2015 Review of [...] 1: 134/82 Code: 8480-6 BMI: 43.6 Code: 56088-0 Heart Rate 1: 97 bpm Height: 5'3" SpO2: 97% Weight: 246 lbs 01/14/2016 Blood Pressure 1: 132/78 Code: 8480-6 BMI: 45.7 Code: 49494-2 Heart Rate 1: 90 bpm Height: 5'3" SpO2: 98% Weight: 258 lbs 07/31/2015 Blood Pressure 1: 142/80 Code: 8480-6 BMI: 45.7 Code: 05617-4 Heart Rate 1: 78 bpm Height: 5'3" SpO2: 96% Weight: 258 lbs 04/04/2015 Blood Pressure 1: 130/82 Code: 8480-6 BMI: 44.9 Code: 53603-3 Heart Rate 1: 90 bpm Height: 5'3" SpO2: 96% Weight: 253 lbs 5 oz 03/13/2015 Blood Pressure 1: 140/86 Code: 8480-6 BMI: 45.2 Code: 55254-4 Heart Rate 1: 87 bpm Height: 5'3" SpO2: 93% Weight: 255 lbs Functional Status No Functional Status data History of Present Illness Symptom Name Status Resu lt Effective Date Notes hypothyroid Location at the level of the thyroid 10/13/2016 None 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 10/13/2016 None hypothyroid Onset and Resolution [...] of the thyroid 07/31/2015 None 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 PATIENT, LEVEL IV Diagnosis: Other acute sinusitis[ICD10: J01.80] Diagnosis: Other allergic rhinitis[ICD10: J30.89] Diagnosis: Wheezing[ICD10: R06.2] Anyi Cano MD, [facility] CPT-4: 93995 01/14/2016 [id number] EST. 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 P ATIENT, LEVEL III Diagnosis: Achilles tendinitis, left leg[ICD10: M76.62] Beba Cano MD, [facility] CPT-4: 64058 04/04/2015 ([id number]) OFFICE VISI T, NEW - LEVEL 4 Diagnosis: HYPERLIPIDEMIA[ICD9: 272.4] Diagnosis: DIABETES TYPE II[ICD9: 250.00] Diagnosis: HYPOTHYROIDISM[ICD9: 244.9] Diagnosis: ACHILLES TENDINITIS[ICD9: 726.71] [facility] CPT-4: 92651 03/13/2015 Plan of Care Planned Activity Notes C odes Status Date Referral: Arvind Briseno [address] [facility] Referral Completed 10/27/2016 Referral: Arvind Briseno[address] [facility] Referral Initiated 10/27/2016 Visit Plan: Umbilical [...] of control. 2016 Appointment: Anyi Velázquez [facility]el[phone] ([facility] min) Moderate 10/13/2016 Patient Education: Patient Medication Summary Completed 10/13/2016 Care Plan: Referral Order SNOMED-CT : [id number] Pending 10/13/2016 Visit Plan: Sinusitis - Pt [...] allergy spray. 01/14/2016 Appointment: Melissa Newman WPtel: [phone] (30 min) Complex 01/14/2016 Patient Education: [...] not improving. 04/04/2015 Appointment: Beba Cano WPtel: [address] [place], [place] [phone] (15 min) Moderate 04/04/2015 Patient Education: Patient [...] that appt. 03/13/2015 Appointment: Beba Cano WPtel: [address] [place], [place] [phone] [place] ([place]) New Patient 03/13/2015 Patient Education: Patient Medication Summary Completed 03/13/2015 Patient Education: Hypertension Completed 03/13/2015 Patient Education: Patient Medication Summary Completed 10/24/2014 Referral: Arvind Briseno [address] [facility] F [facility] Referral Initiated Instructions Comment . Sinusitis - [...]
--- OUTSIDE RECORDS SUMMARY | 2020-01-06 14:42 | XMS REPORT | CCD ---
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 ICD-9: V58.69 ICD-10: [...] Date Stop Date Sta tus Fill Instructions metformin 1,000 mg t ablet RxNorm: 765098 TAKE 1 TABLET BY MOUT H TWICE A DAY 11/26/2016 11/20/2017 Ac tive Generic For:*GLUCOPHAGE 1000MG 11/27/19 17 1:05:15 PM naproxen 500 mg tablet RxNorm: 963541 1 Tablet(s) PO BID 10/21/2016 05/18/2017 Active levothyroxine 25 mcg tablet RxNorm: 934559 1 Tablet(s) PO daily to take with her 200mcg to equal 225 mcg daily 10/13/2016 01/10/2017 Active Invokana 300 mg tablet RxNorm: 2555265 1 Tablet(s) PO daily 09/21/2016 12/19/2016 Active levothyroxine 200 mc g tablet RxNorm: 227191 1 Tablet(s) PO daily 09/21/2016 12/19/2016 Active levothyroxine 50 mcg tablet RxNorm: 834786 1 Tablet(s) PO daily 09/21/2016 10/12/2016 Inactive metformin 1,000 mg t ablet RxNorm: 888792 TAKE 1 TABLET BY MOUT H TWICE A DAY 09/21/2016 11/25/2016 In active Generic For:*GLUCOPHAGE 1000MG 09/22/19 17 8:53:30 AM Lipitor 40 mg tablet RxNorm: 824843 TAKE 1 TABLET BY MOUTH DAILY 06/23/2016 03/19/2017 Active Generic For:LIPITOR 40MG 06/23/2016 9:1 2:42 AM levothyroxine 50 mcg tablet RxNorm: 299383 1 Tablet(s) PO daily TAKE 1 TABLET BY MOUTH DAILY 06/23/2016 09/20/2016 Inactive Generic For:SYNTHROID 50MCG TAB 06/23/2016 9:22:58 AM metformin 1,000 mg t ablet RxNorm: 240590 TAKE 1 TABLET BY MOUT H TWICE A DAY 06/23/2016 09/20/2016 In active Generic For:*GLUCOPHAGE 1000MG 06/23/19 17 9:12:46 AM levothyroxine 200 mc g tablet RxNorm: 104134 1 Tablet(s) PO daily 04/24/2016 08/21/2016 Inactive naproxen 500 mg tablet RxNorm: 994459 1 Tablet(s) PO BID 03/26/2016 10/20/2016 Inactive levothyroxine 50 mcg tablet RxNorm: 191860 1 Tablet(s) PO daily 03/25/2016 06/23/2016 Inactive Flonase Allergy Reli ef 50 mcg/actuation nasal spray,suspension RxNorm: 0557225 1 [place] NASAL BID 01/14/2016 No Stop Date Active prednisone 20 mg tablet RxNorm: 723731 2 Tablet(s) PO daily 01/14/2016 01/16/2016 Inactive Zithromax Z-Michael 250 mg tablet RxNorm: 396145 Tablet(s) PO 01/14/2016 02/25/2016 Inactive levothyroxine 200 mc g tablet RxNorm: 343602 1 Tablet(s) PO daily 11/25/2015 03/23/2016 Inactive levothyroxine 50 mcg tablet RxNorm: 340486 1 Tablet(s) PO daily 11/25/2015 03/23/2016 Inactive Invokana 300 mg tablet RxNorm: 3630322 1 Tablet(s) PO daily 11/25/2015 09/20/2016 Inactive metformin 1,000 mg t ablet RxNorm: 152425 TAKE 1 TABLET BY MOUT H TWICE A DAY 08/22/2015 05/17/2016 In active Generic For:*GLUCOPHAGE 1000MG N O T I C E PRESCRIPTION PREVIOUSLY AUTHORIZED BY DOCTOR:PEDRO SIMPSON levothyroxine 200 mc g tablet RxNorm: 955614 1 Tablet(s) PO daily 08/02/2015 11/24/2015 Inactive levothyroxine 25 mcg tablet RxNorm: 496483 1 Tablet(s) PO daily 08/02/2015 11/24/2015 Inactive levothyroxine 25 mcg tablet RxNorm: 854987 1 Tablet(s) PO daily 08/02/2015 08/01/2015 Inactive Zithromax Z-Michael 250 mg tablet RxNorm: 677904 Tablet(s) PO 07/31/2015 10/27/2015 Inactive naproxen 500 mg tablet RxNorm: 489528 1 Tablet(s) PO BID 07/31/2015 02/25/2016 Inactive Lipitor 40 mg tablet RxNorm: 285853 TAKE 1 TABLET BY MOUTH DAILY 05/26/2015 05/19/2016 Inactive Generic For:LIPITOR 40MG 05/25/2015 10: 36:19 AM levothyroxine 200 mc g tablet RxNorm: 668265 TAKE 1 TABLET ONCE DA SUKUMAR WITH 50MCG TABLET TO MAKE 250MCG. 05/26/2015 07/30/2015 Inactive Generic For:SYNTHROID 200MC G TAB 05/25/2015 10:36:11 AM Invokana 100 mg tablet RxNorm: 4482222 1 Tablet(s) PO daily 03/15/2015 03/14/2015 Inactive Invokana 100 mg tablet RxNorm: 2880540 1 Tablet(s) PO daily 03/15/2015 11/24/2015 Inactive naproxen 500 mg tablet RxNorm: 794314 1 Tablet(s) PO BID 03/13/2015 07/30/2015 Inactive metformin 1,000 mg t ablet RxNorm: 944363 1 Tablet(s) PO BID 03/13/2015 08/21/2015 Inactive levothyroxine 200 mc g tablet RxNorm: 203694 TAKE 1 TABLET ONCE DA SUKUMAR WITH 50MCG TABLET TO MAKE 250MCG. 02/12/2015 05/12/2015 Inactive Generic For:SYNTHROID 200MC G TAB 02/12/2015 11:50:50 AM Lipitor 40 mg tablet RxNorm: 321552 TAKE 1 TABLET BY MOUTH DAILY 02/12/2015 05/12/2015 Inactive Generic For:LIPITOR 40MG 02/12/2015 11: 50:55 AM levothyroxine 200 mc g tablet RxNorm: 955791 1 Tablet(s) PO daily 11/19/2014 02/11/2015 Inactive levothyroxine 200 mc g tablet RxNorm: 782317 1 Tablet(s) PO daily 11/19/2014 11/18/2014 Inactive Lipitor 40 mg tablet RxNorm: 077927 1 Tablet(s) PO daily call and make appt. 11/19/2014 02/11/2015 In active Lipitor 40 mg tablet RxNorm: 306040 1 Tablet(s) PO daily call and make appt. 11/15/2014 11/18/2014 In active Lipitor 40 mg tablet RxNorm: 615339 1 Tablet(s) PO daily call and make appt. 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: Z79.899 ICD-9: V58.69 [...] leg ICD-10 : M76.62 ICD-9: 726.71 04/04/2015 ACHILLES TENDINITIS ICD-9: 726.71 03/13/2015 DIABETES TYPE II ICD-9: 250.00 03/13/2015 HYPOTHYROIDISM ICD-9: 244.9 03/13/2015 HYPERLIPIDEMIA ICD-9: 272.4 03/13/2015 OTH SCREENING MAMMOGRAM ICD-9: V76.12 10/24/2014 Reason For Visit Reason For Visit Effective Dates Notes hypothyroid 10/13/2016 cough 01/14/2016 hypothyroid 07/31/2015 ankle pain 04/04/2015 hypothyroid 03/13/2015 Results Observation Observation Code Item Item Code Result Date %Hba1C Fcx208 % HbA1c 60279-1 6.0 % 10/01/2016 %Hba1C Nvf547 Gluc Ave 126 mg/dL 10/01/2016 Tsh Ord6 hTSH II 0.19 uIU/mL 10/01/2016 Cbc With Differential Ord2 WBC 7.72 K/ul 10/01/2016 Cbc With Differential Ord2 RBC 4.73 M/ul 10/01/2016 Cbc With Differential Ord2 HGB 13.2 g/dl 10/01/2016 Cbc With Differential Ord2 Neut% 64.5 % 10/01/2016 Cbc With Differential Ord2 HCT 41.8 % 10/01/2016 Cbc With Differential Ord2 MCV 88.4 fl 10/01/2016 Cbc With Differential Ord2 Lymph% 21.9 % 10/01/2016 Cbc With Differential Ord2 [place]% 8.5 % 10/01/2016 Cbc With Differential Ord2 MCH 27.9 pg 10/01/2016 Cbc With Differential Ord2 MCHC 31.6 pg 10/01/2016 Cbc With Differential Ord2 Eos% 4.5 % 10/01/2016 Cbc With Differential Ord2 PLT 405 K/ul 10/01/2016 Cbc With Differential Ord2 Baso% 0.6 % 10/01/2016 Cbc With Differential Ord2 RDW 14.9 % 10/01/2016 Cbc With Differential Ord2 Neut ABS# 4.97 K/ul 10/01/2016 Cbc With Differential Ord2 Lymph ABS# 1.69 K/ul 10/01/2016 Cbc With Differential Ord2 [place] ABS# 0.7 K/ul 10/01/2016 Cbc With Differential Ord2 Eos ABS# 0.4 K/ul 10/01/2016 Cbc With Differential Ord2 Baso ABS# 0.1 K/ul 10/01/2016 Lipid Ord30 CHOL 161 mg/dL 10/01/2016 Lipid Ord30 HDL 43.0 mg/dl 10/01/2016 Lipid Ord30 TRIG 150 mg/dL 10/01/2016 Lipid Ord30 LDL 88 mg/dL 10/01/2016 Lipid Ord30 C/HDL 3.7 Ratio 10/01/2016 Free T4 Pck243 FREE T4 1.37 ng/dL 10/01/2016 Comp Metabolic Ssh345 NA 139 mEq/L 10/01/2016 Comp Metabolic Uiw066 K 4.6 mEq/L 10/01/2016 Comp Metabolic Ghg918 CL 102 mEq/L 10/01/2016 Comp Metabolic Wpv122 CO2 28.0 mEq/L 10/01/2016 Comp Metabolic Qun731 AN ION GAP 14 10/01/2016 Comp Metabolic Wog402 GL UCOSE 93 mg/dL 10/01/2016 Comp Metabolic Pmm437 Cr eat 0.6 mg/dL 10/01/2016 Comp Metabolic Odq791 eG FR 109 ml/min/1.73m2 09/19 Comp Metabolic Nlr830 BUN 20 mg/dL 10/01/2016 Comp Metabolic Ghi299 B/ C Ratio 31.7 Ratio 10/01/2016 Comp Metabolic Zqg895 CA LCIUM 9.8 mg/dL 10/01/2016 Comp Metabolic Btg314 AL K PHOS 114 U/L 10/01/2016 Comp Metabolic Fyo806 T(SGOT) 11 U/L 10/01/2016 Comp Metabolic Rjk556 AL T(SGPT) 12 U/L 10/01/2016 Comp Metabolic Jmy310 BI LI T 0.4 mg/dL 10/01/2016 Comp Metabolic Axf738 AL BUMIN 4.3 g/dL 10/01/2016 Comp Metabolic Hyv536 TP RO 7.2 g/dL 10/01/2016 Comp Metabolic Jnq360 GL OB 2.9 g/dL 10/01/2016 Comp Metabolic Kfn698 A/ G Ratio 1.5 Ratio 10/01/2016 Comp Metabolic Qlw332 Os mo 280 mOsmo 10/01/2016 Ferritin Ord22 FERRITIN 5.8 ng/mL 04/06/2016 Cbc With Differential Ord2 WBC 6.07 K/ul 04/06/2016 Cbc With Differential Ord2 RBC 4.45 M/ul 04/06/2016 Cbc With Differential Ord2 HGB 10.1 g/dl 04/06/2016 Cbc With Differential Ord2 HCT 33.5 % 04/06/2016 Cbc With Differential Ord2 Neut% 60.6 % 04/06/2016 Cbc With Differential Ord2 MCV 75.3 fl 04/06/2016 Cbc With Differential Ord2 Lymph% 24.4 % 04/06/2016 Cbc With Differential Ord2 [place]% 8.2 % 04/06/2016 Cbc With Differential Ord2 MCH 22.7 pg 04/06/2016 Cbc With Differential Ord2 MCHC 30.1 pg 04/06/2016 Cbc With Differential Ord2 Eos% 6.3 % 04/06/2016 Cbc With Differential Ord2 Baso% 0.5 % 04/06/2016 Cbc With Differential Ord2 PLT 482 K/ul 04/06/2016 Cbc With Differential Ord2 Neut ABS# 3.68 K/ul 04/06/2016 Cbc With Differential Ord2 RDW 17.0 % 04/06/2016 Cbc With Differential Ord2 Lymph ABS# 1.48 K/ul 04/06/2016 Cbc With Differential Ord2 [place] ABS# 0.5 K/ul 04/06/2016 Cbc With Differential Ord2 Eos ABS# 0.4 K/ul 04/06/2016 Cbc With Differential Ord2 Baso ABS# 0.0 K/ul 04/06/2016 Tibc Ord40 Iron 36 ug/dl 04/06/2016 Tibc Ord40 UIBC 373 ug/dL 04/06/2016 Tibc Ord40 TIBC 409 ug/dL 04/06/2016 Tibc Ord40 Fe-%Sat 8.8 % 04/06/2016 Free T4 Kym259 FREE T4 1.16 ng/dL 03/16/2016 %Hba1C Elf657 % HbA1c 78814-6 7.0 % 03/16/2016 %Hba1C Gkv643 Gluc Ave 154 mg/dL 03/16/2016 Cbc With [...] 76.8 fl 03/16/2016 Cbc With Differential Ord2 [place]% 4.8 % 03/16/2016 Cbc With Differential Ord2 MCH 23.2 pg 03/16/2016 Cbc With Differential Ord2 MCHC 30.2 pg 03/16/2016 Cbc With Differential Ord2 Eos% 3.1 % 03/16/2016 Cbc With Differential Ord2 PLT 463 K/ul 03/16/2016 Cbc With Differential Ord2 Baso% 0.3 % 03/16/2016 Cbc With Differential Ord2 RDW 16.8 % 03/16/2016 Cbc With Differential Ord2 Neut ABS# 10.31 K/ul 03/16/2016 Cbc With Differential Ord2 Lymph ABS# 1.75 K/ul 03/16/2016 Cbc With Differential Ord2 [place] ABS# 0.6 K/ul 03/16/2016 Cbc With Differential Ord2 Eos ABS# 0.4 K/ul 03/16/2016 Cbc With Differential Ord2 Baso ABS# 0.0 K/ul 03/16/2016 Tsh Ord6 hTSH II 1.39 uIU/mL 03/16/2016 Tsh Ord6 hTSH II 10.28 uIU/mL 11/14/2015 Lipid Ord30 CHOL 153 mg/dL 11/14/2015 Lipid Ord30 HDL 44.0 mg/dl 11/14/2015 Lipid Ord30 TRIG 120 mg/dL 11/14/2015 Lipid Ord30 LDL 85 mg/dL 11/14/2015 Lipid Ord30 C/HDL 3.5 Ratio 11/14/2015 Comp Metabolic Fiw300 NA 136 mEq/L 11/14/2015 Comp Metabolic Fve283 K 4.4 mEq/L 11/14/2015 Comp Metabolic Pqo078 CL 101 mEq/L 11/14/2015 Comp Metabolic Zvh308 CO2 27.0 mEq/L 11/14/2015 Comp Metabolic Mck590 AN ION GAP 12 11/14/2015 Comp Metabolic Dwp812 GL UCOSE 107 mg/dL 11/14/2015 Comp Metabolic Pkg316 Cr eat 0.6 mg/dL 11/14/2015 Comp Metabolic Fay618 eG FR 125 ml/min/1.73m2 10/20 Comp Metabolic Ovs567 BUN 14 mg/dL 11/14/2015 Comp Metabolic Cup436 B/ C Ratio 25.0 Ratio 11/14/2015 Comp Metabolic Eft500 CA LCIUM 9.6 mg/dL 11/14/2015 Comp Metabolic Req308 AL K PHOS 104 U/L 11/14/2015 Comp Metabolic Uef257 T(SGOT) 16 U/L 11/14/2015 Comp Metabolic Lpq423 AL T(SGPT) 14 U/L 11/14/2015 Comp Metabolic Quk222 BI LI T 0.3 mg/dL 11/14/2015 Comp Metabolic Qdn127 AL BUMIN 4.0 g/dL 11/14/2015 Comp Metabolic Zfy483 TP RO 7.2 g/dL 11/14/2015 Comp Metabolic Hac381 GL OB 3.2 g/dL 11/14/2015 Comp Metabolic Hoa409 A/ G Ratio 1.3 Ratio 11/14/2015 Comp Metabolic Ngh033 Os mo 273 mOsmo 11/14/2015 %Hba1C Tbd452 % HbA1c 11884-4 7.0 % 11/14/2015 %Hba1C Xej444 Gluc Ave 154 mg/dL 11/14/2015 Cbc With Differential Ord2 WBC 11.83 [...] 24.4 pg 11/14/2015 Cbc With Differential Ord2 [place]% 6.6 % 11/14/2015 Cbc With Differential Ord2 [...] 1.72 K/ul 11/14/2015 Cbc With Differential Ord2 [place] ABS# 0.8 K/ul 11/14/2015 Cbc With Differential Ord2 Eos ABS# 0.4 K/ul 11/14/2015 Cbc With Differential Ord2 Baso ABS# 0.0 K/ul 11/14/2015 Free T4 Dqb866 FREE T4 0.79 ng/dL 11/14/2015 Free T4 Btw528 FREE T4 0.49 ng/dL 08/02/2015 %Hba1C Yjw309 % HbA1c 02677-3 6.7 % 07/31/2015 %Hba1C Hdw870 Gluc Ave 146 mg/dL 07/31/2015 Tsh Ord6 hTSH II 44.41 uIU/mL 07/31/2015 Comp Metabolic Cdn064 NA 135 mEq/L 03/13/2015 Comp Metabolic Ucb474 K 4.5 mEq/L 03/13/2015 Comp Metabolic Vto459 CL 99 mEq/L 03/13/2015 Comp Metabolic Pyo420 CO2 29.0 mEq/L 03/13/2015 Comp Metabolic Hic607 AN ION GAP 12 03/13/2015 Comp Metabolic Ldo384 GL UCOSE 98 mg/dL 03/13/2015 Comp Metabolic Dmr155 Cr eat 0.7 mg/dL 03/13/2015 Comp Metabolic Pbe698 eG FR 100 ml/min/1.73m2 02/20 Comp Metabolic Mcr720 BUN 13 mg/dL 03/13/2015 Comp Metabolic Bay998 B/ C Ratio 19.1 Ratio 03/13/2015 Comp Metabolic Wfk585 CA LCIUM 9.8 mg/dL 03/13/2015 Comp Metabolic Qut529 AL K PHOS 91 U/L 03/13/2015 Comp Metabolic Frt433 T(SGOT) 10 U/L 03/13/2015 Comp Metabolic Qqm525 AL T(SGPT) 10 U/L 03/13/2015 Comp Metabolic Ach990 BI LI T 0.4 mg/dL 03/13/2015 Comp Metabolic Gjo950 AL BUMIN 4.1 g/dL 03/13/2015 Comp Metabolic Cga680 TP RO 6.9 g/dL 03/13/2015 Comp Metabolic Bws479 GL OB 2.8 g/dL 03/13/2015 Comp Metabolic Rkq961 A/ G Ratio 1.5 Ratio 03/13/2015 Comp Metabolic Iyy862 Os mo 270 mOsmo 03/13/2015 Free T4 Ldk274 FREE T4 1.25 ng/dL 03/13/2015 Lipid Ord30 CHOL 146 mg/dL 03/13/2015 Lipid Ord30 HDL 40.0 mg/dl 03/13/2015 Lipid Ord30 TRIG 137 mg/dL 03/13/2015 Lipid Ord30 LDL 79 mg/dL 03/13/2015 Lipid Ord30 C/HDL 3.7 Ratio 03/13/2015 Tsh Ord6 hTSH II 0.95 uIU/mL 03/13/2015 %Hba1C Jva527 % HbA1c 70730-5 6.8 % 03/13/2015 %Hba1C Xdq983 Gluc Ave 148 mg/dL 03/13/2015 Cbc With Differential Ord2 WBC 8.1 K/uL [...] With Differential Ord2 RDW 14.9 % 03/13/2015 Review of Systems System Result Effective [...] 1: 134/82 Code: 8480-6 BMI: 43.6 Code: 86942-0 Heart Rate 1: 97 bpm Height: 5'3" SpO2: 97% Weight: 246 lbs 01/14/2016 Blood Pressure 1: 132/78 Code: 8480-6 BMI: 45.7 Code: 40633-4 Heart Rate 1: 90 bpm Height: 5'3" SpO2: 98% Weight: 258 lbs 07/31/2015 Blood Pressure 1: 142/80 Code: 8480-6 BMI: 45.7 Code: 57826-0 Heart Rate 1: 78 bpm Height: 5'3" SpO2: 96% Weight: 258 lbs 04/04/2015 Blood Pressure 1: 130/82 Code: 8480-6 BMI: 44.9 Code: 78391-2 Heart Rate 1: 90 bpm Height: 5'3" SpO2: 96% Weight: 253 lbs 5 oz 03/13/2015 Blood Pressure 1: 140/86 Code: 8480-6 BMI: 45.2 Code: 58097-1 Heart Rate 1: 87 bpm Height: 5'3" SpO2: 93% Weight: 255 lbs Functional Status No Functional Status data History of Present Illness Symptom Name Status Resu lt Effective Date Notes hypothyroid Location at the level of the thyroid 10/13/2016 None hypothyroid 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 PATIENT, LEVEL IV Diagnosis: Other acute sinusitis[ICD10: J01.80] Diagnosis: Other allergic rhinitis[ICD10: J30.89] Diagnosis: Wheezing[ICD10: R06.2] Anyi Cano MD, [facility] CPT-4: 47401 01/14/2016 00888 EST. PATIENT, LEVEL IV Diagnosis: Other usp (current) drug therapy[ICD10: Z79.899] Diagnosis: Type 2 diabetes mellitus with hyperglycemia[ICD10: E11.65] Diagnosis: Other specified hypothyroidism[ICD10: E03.8] Diagnosis: Mixed hyperlipidemia[ICD10: E78.2] Anyi Cano MD, [facility] CPT-4: 81231 07/31/2015 ([id number]) 89084 EST. P ATIENT, LEVEL III Diagnosis: Achilles tendinitis, left leg[ICD10: M76.62] Beba Cano MD, [facility] CPT-4: 69861 04/04/2015 ([id number]) OFFICE VISI T, NEW - LEVEL 4 Diagnosis: HYPERLIPIDEMIA[ICD9: 272.4] Diagnosis: DIABETES TYPE II[ICD9: 250.00] Diagnosis: HYPOTHYROIDISM[ICD9: 244.9] Diagnosis: ACHILLES TENDINITIS[ICD9: 726.71] Beba Cano MD, [facility] CPT-4: 25670 03/13/2015 Plan of Care Planned Activity Notes C odes Status Date Referral: Arvind Briseno [facility] Referral Initiated 10/27/2016 Referral: Arvind Briseno [facility] Referral Initiated 10/27/2016 Visit Plan: [...] of control. 2016 Appointment: Any[facility] Velázquez [facility] [address] [facility] [phone] (15 min) Moderate 10/13/2016 Patient Education: Patient Medication Summary Completed 10/13/2016 Care Plan: Referral Order SNOMED-CT : [id number] Pending 10/13/2016 Visit Plan: Sinusitis - Pt [...] spray. 01/14/2016 Appointment: Melissa Newman [facility] [address] [facility] [phone] (30 min) Complex 01/14/2016 Patient Education: Patient [...] not improving. 04/04/2015 Appointment: Beba Cano WPtel: [address] [place], [place] [id number] (15 min) Moderate 04/04/2015 Patient Education: Patient [...] that appt. 03/13/2015 Appointment: Beba Cano WPtel: [facility] [place] ([place]) New Patient 03/13/2015 Patient Education: Patient Medication Summary Completed 03/13/2015 Patient Education: Hypertension Completed 03/13/2015 Patient Education: Patient Medication Summary Completed 10/24/2014 Referral: Arvind Briseno [address] [facility] Referral Initiated Instructions Comment . [...]
--- OUTSIDE RECORDS SUMMARY | 2020-01-06 14:43 | XMS REPORT | CCD ---
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 Name Role Phone PP Unavailable CCM Unavailable Summary Purpose Interface Exchange Insurance Providers Payer name Policy type / Coverage type Covered alliance party ID Effective Begin Date Effective End Date WPS Medicare Part B Medicare Part B [id number] Unknown [employer] [facility] [place] [facility] Part B [id number] Unk nown Family history Father Diagnosis Age [...] employed [employer] 04/04/[address]: 380783718 Never smoker 04/04/[address]: 591326727 Never drinks alcohol 04/04/2015 Has the patient [...] 706.1 ICD-10: L70.0 Active 09/21/2018 Unknown Other [facility] ([facility] drug therapy ICD-9: V58.69 ICD-10: [...] ICD-9: 706.1 ICD-10: L70.0 09/21/2018 Active 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 ICD-9: V58.69 ICD-10: [...] Fill Instructions Farxiga 10 mg tablet RxNorm: 7129570 1 Tablet(s) PO daily 09/21/2018 01/18/[address] of invokana Farxiga 10 mg tablet RxNorm: 4513636 1 Tablet(s) PO daily 09/21/2018 09/20/[address] invokana cyanocobalamin (vit B-12) 1,000 mcg/mL injection solution RxNorm: 829798 Milliliter(s) Inj 09/13/2018 09/13/2018 Inactive cyanocobalamin (vit B-12) 1,000 mcg/mL injection solution RxNorm: 898549 Milliliter(s) Inj 08/11/2018 08/11/2018 Inactive naproxen 500 mg tablet RxNorm: 592484 TAKE 1 TABLET BY MOUTH TWICE DAILY 08/09/2018 11/06/2018 Ac tive Generic For:NAPROSYN 500MG 08/09/2018 1 1:14:27 AM N O T I C E Last quantity doesn't match original quantity levothyroxine 200 mc g tablet RxNorm: 130405 1 Tablet(s) PO daily to take with the 50mcg daily to equal 250mcg daily 07/19/2018 04/14/2019 Active cyanocobalamin (vit B-12) 1,000 mcg/mL injection solution RxNorm: 448163 Milliliter(s) Inj 06/29/2018 06/29/2018 Inactive naproxen 500 mg tablet RxNorm: 525330 TAKE 1 TABLET BY MOUTH TWICE DAILY 05/19/2018 08/08/2018 In active Generic For:NAPROSYN 500MG 05/19/2018 1 0:56:16 AM N O T I C E Last quantity doesn't match original quantity Kenalog 40 mg/mL [facility] pension for injection RxNorm: 9951770 Milliliter(s) Inj 03/23/2018 03/23/2018 In active levothyroxine 50 mcg tablet RxNorm: 221603 TAKE 1 TABLET BY MOUT H ONCE DAILY WITH 200MCG (250MCG TOTAL) 03/11/2018 06/08/2018 Inactive Generic For:SYNTHROID 50MCG TAB 03/11/2018 9:09:32 AM naproxen 500 mg tablet RxNorm: 248720 TAKE 1 TABLET BY MOUTH TWICE DAILY 02/25/2018 05/18/2018 In active Generic For:NAPROSYN 500MG 02/25/2018 1 2:39:53 PM N O T I C E Last quantity doesn't match original quantity cyanocobalamin (vit B-12) 1,000 mcg/mL injection solution RxNorm: 425391 Milliliter(s) Inj 02/07/2018 02/07/2018 Inactive metformin 1,000 mg t ablet RxNorm: 351805 TAKE 1 TABLET BY MOUT H TWICE A DAY 01/19/2018 01/13/2019 Ac tive Generic For:*GLUCOPHAGE 1000MG 01/20/20 10:20:50 AM cyanocobalamin (vit B-12) 1,000 mcg/mL injection solution RxNorm: 825228 Milliliter(s) Inj 01/13/2018 01/13/2018 Inactive cyanocobalamin (vit B-12) 1,000 mcg/mL injection solution RxNorm: 831039 Milliliter(s) Inj 12/06/2017 12/06/2017 Inactive Lipitor 40 mg tablet RxNorm: 562462 TAKE 1 TABLET BY MOUTH DAILY 11/08/2017 11/02/2018 Active Generic For:LIPITOR 40MG 11/05/2017 5:1 0:24 PM Invokana 300 mg tablet RxNorm: 8662574 TAKE 1 TABLET BY MOUTH DAILY 11/08/2017 09/20/2018 In active 11/05/2017 5:10:44 PM naproxen 500 mg tablet RxNorm: 703063 TAKE 1 TABLET BY MOUTH TWICE DAILY 11/08/2017 02/05/2018 In active Generic For:NAPROSYN 500MG 11/08/2017 9 :14:56 AM N O T I C E Last quantity doesn't match original quantity levothyroxine 50 mcg tablet RxNorm: 271672 1 Tablet(s) PO daily to take with the 200mcg daily to equal 250mcg daily 11/08/2017 02/05/2018 Inactive cyanocobalamin (vit B-12) 1,000 mcg/mL injection solution RxNorm: 769768 1 Milliliter(s) Inj 11/01/2017 11/01/2017 Inactive cyanocobalamin (vit B-12) 1,000 mcg/mL injection solution RxNorm: 504138 1 Milliliter(s) Inj 09/28/2017 09/28/2017 Inactive levothyroxine 200 mc g tablet RxNorm: 168809 1 Tablet(s) PO daily to take with the 50mcg daily to equal 250mcg daily 09/14/2017 06/10/2018 Inactive levothyroxine 50 mcg tablet RxNorm: 503965 1 Tablet(s) PO daily to take with the 200mcg daily to equal 250mcg daily 09/14/2017 11/07/2017 Inactive naproxen 500 mg tablet RxNorm: 232267 TAKE 1 TABLET BY MOUTH TWICE DAILY 08/05/2017 11/02/2017 In active Generic For:NAPROSYN 500MG 08/05/2017 9 :04:47 AM N O T I C E Last quantity doesn't match original quantity naproxen 500 mg tablet RxNorm: 353715 TAKE 1 TABLET BY MOUTH TWICE DAILY 04/19/2017 08/04/2017 In active Generic For:NAPROSYN 500MG 04/19/2017 1 :49:28 PM Lipitor 40 mg tablet RxNorm: 989355 TAKE 1 TABLET BY MOUTH DAILY 03/22/2017 11/07/2017 Inactive Generic For:LIPITOR 40MG 03/20/2017 9:0 5:49 AM levothyroxine 25 mcg tablet RxNorm: 555208 1 Tablet(s) PO daily to take with her 200mcg to equal 225 mcg daily 03/22/2017 04/08/2017 Inactive Invokana 300 mg tablet RxNorm: 6662991 TAKE 1 TABLET BY MOUTH DAILY 12/21/2016 09/16/2017 In active 12/21/2016 9:03:03 AM levothyroxine 200 mc g tablet RxNorm: 374026 1 Tablet(s) PO daily 12/21/2016 09/13/2017 Inactive metformin 1,000 mg t ablet RxNorm: 911024 TAKE 1 TABLET BY MOUT H TWICE A DAY 11/26/2016 11/20/2017 In active Generic For:*GLUCOPHAGE 1000MG 11/27/19 1:05:15 PM naproxen 500 mg tablet RxNorm: 227778 1 Tablet(s) PO BID 10/21/2016 04/18/2017 Inactive levothyroxine 25 mcg tablet RxNorm: 038965 1 Tablet(s) PO daily to take with her 200mcg to equal 225 mcg daily 10/13/2016 01/10/2017 Inactive levothyroxine 50 mcg tablet RxNorm: 389890 1 Tablet(s) PO daily 09/21/2016 10/12/2016 Inactive Invokana 300 mg tablet RxNorm: 0819480 1 Tablet(s) PO daily 09/21/2016 12/19/2016 Inactive metformin 1,000 mg t ablet RxNorm: 235425 TAKE 1 TABLET BY MOUT H TWICE A DAY 09/21/2016 11/25/2016 In active Generic For:*GLUCOPHAGE 1000MG 09/22/19 17 8:53:30 AM levothyroxine 200 mc g tablet RxNorm: 679277 1 Tablet(s) PO daily 09/21/2016 12/19/2016 Inactive Lipitor 40 mg tablet RxNorm: 552969 TAKE 1 TABLET BY MOUTH DAILY 06/23/2016 03/19/2017 Inactive Generic For:LIPITOR 40MG 06/23/2016 9:1 2:42 AM levothyroxine 50 mcg tablet RxNorm: 185176 1 Tablet(s) PO daily TAKE 1 TABLET BY MOUTH DAILY 06/23/2016 09/20/2016 Inactive Generic For:SYNTHROID 50MCG TAB 06/23/2016 9:22:58 AM metformin 1,000 mg t ablet RxNorm: 785036 TAKE 1 TABLET BY MOUT H TWICE A DAY 06/23/2016 09/20/2016 In active Generic For:*GLUCOPHAGE 1000MG 06/23/19 17 9:12:46 AM levothyroxine 200 mc g tablet RxNorm: 844637 1 Tablet(s) PO daily 04/24/2016 08/21/2016 Inactive naproxen 500 mg tablet RxNorm: 160505 1 Tablet(s) PO BID 03/26/2016 10/20/2016 Inactive levothyroxine 50 mcg tablet RxNorm: 884291 1 Tablet(s) PO daily 03/25/2016 06/23/2016 Inactive Flonase Allergy Reli ef 50 mcg/actuation nasal spray,suspension RxNorm: 9999659 1 Titus NASAL BID 01/14/2016 No Stop Date Active prednisone 20 mg tablet RxNorm: 245090 2 Tablet(s) PO daily 01/14/2016 01/16/2016 Inactive Zithromax Z-Michael 250 mg tablet RxNorm: 355065 Tablet(s) PO 01/14/2016 02/25/2016 Inactive levothyroxine 200 mc g tablet RxNorm: 672241 1 Tablet(s) PO daily 11/25/2015 03/23/2016 Inactive levothyroxine 50 mcg tablet RxNorm: 747479 1 Tablet(s) PO daily 11/25/2015 03/23/2016 Inactive Invokana 300 mg tablet RxNorm: 1752934 1 Tablet(s) PO daily 11/25/2015 09/20/2016 Inactive metformin 1,000 mg t ablet RxNorm: 295191 TAKE 1 TABLET BY MOUT H TWICE A DAY 08/22/2015 05/17/2016 In active Generic For:*GLUCOPHAGE 1000MG N O T I C E PRESCRIPTION PREVIOUSLY AUTHORIZED BY DOCTOR:PEDRO SIMPSON levothyroxine 200 mc g tablet RxNorm: 372442 1 Tablet(s) PO daily 08/02/2015 11/24/2015 Inactive levothyroxine 25 mcg tablet RxNorm: 281834 1 Tablet(s) PO daily 08/02/2015 11/24/2015 Inactive levothyroxine 25 mcg tablet RxNorm: 332834 1 Tablet(s) PO daily 08/02/2015 08/01/2015 Inactive Zithromax Z-Michael 250 mg tablet RxNorm: 389365 Tablet(s) PO 07/31/2015 10/27/2015 Inactive naproxen 500 mg tablet RxNorm: 731089 1 Tablet(s) PO BID 07/31/2015 02/25/2016 Inactive Lipitor 40 mg tablet RxNorm: 944263 TAKE 1 TABLET BY MOUTH DAILY 05/26/2015 05/19/2016 Inactive Generic For:LIPITOR 40MG 05/25/2015 10: 36:19 AM levothyroxine 200 mc g tablet RxNorm: 576914 TAKE 1 TABLET ONCE DA SUKUMAR WITH 50MCG TABLET TO MAKE 250MCG. 05/26/2015 07/30/2015 Inactive Generic For:SYNTHROID 200MC G TAB 05/25/2015 10:36:11 AM Invokana 100 mg tablet RxNorm: 5522438 1 Tablet(s) PO daily 03/15/2015 03/14/2015 Inactive Invokana 100 mg tablet RxNorm: 0371627 1 Tablet(s) PO daily 03/15/2015 11/24/2015 Inactive naproxen 500 mg tablet RxNorm: 460058 1 Tablet(s) PO BID 03/13/2015 07/30/2015 Inactive metformin 1,000 mg t ablet RxNorm: 200176 1 Tablet(s) PO BID 03/13/2015 08/21/2015 Inactive levothyroxine 200 mc g tablet RxNorm: 009973 TAKE 1 TABLET ONCE DA SUKUMAR WITH 50MCG TABLET TO MAKE 250MCG. 02/12/2015 05/12/2015 Inactive Generic For:SYNTHROID 200MC G TAB 02/12/2015 11:50:50 AM Lipitor 40 mg tablet RxNorm: 724447 TAKE 1 TABLET BY MOUTH DAILY 02/12/2015 05/12/2015 Inactive Generic For:LIPITOR 40MG 02/12/2015 11: 50:55 AM levothyroxine 200 mc g tablet RxNorm: 616112 1 Tablet(s) PO daily 11/19/2014 02/11/2015 Inactive levothyroxine 200 mc g tablet RxNorm: 341559 1 Tablet(s) PO daily 11/19/2014 11/18/2014 Inactive Lipitor 40 mg tablet RxNorm: 181220 1 Tablet(s) PO daily call and make appt. 11/19/2014 02/11/2015 In active Lipitor 40 mg tablet RxNorm: 162738 1 Tablet(s) PO daily call and make appt. 11/15/2014 11/18/2014 In active Lipitor 40 mg tablet RxNorm: 157694 1 Tablet(s) PO daily call and make appt. 11/15/2014 11/14/2014 In active [place] with Iro n oral RxNorm: oral No Start D ate Active Vitamin B-12 1,000 m cg/mL injection solution RxNorm: 387471 1 Milliliter(s) Inj m onthly No Start Date Active levothyroxine 200 mc g tablet RxNorm: 302538 1 Tablet(s) PO daily No Start Date 08/01/2015 Inactive Medication Administered Medication Codes Instruc tions Start Date Status cyanocobalamin (vit B-12) 1,000 mcg/mL injection solut ion RxNorm: 578512 Milliliter 09/13/2018 No longer Active cyanocobalamin (vit B-12) 1,000 mcg/mL injection solut ion RxNorm: 051397 Milliliter 08/11/2018 No longer Active cyanocobalamin (vit B-12) 1,000 mcg/mL injection solut ion RxNorm: 140104 Milliliter 06/29/2018 No longer Active Kenalog 40 mg/mL suspension for injection RxNorm: 4699394 Milliliter 03/23/2018 No longer Active cyanocobalamin (vit B-12) 1,000 mcg/mL injection solut ion RxNorm: 242498 Milliliter 02/07/2018 No longer Active cyanocobalamin (vit B-12) 1,000 mcg/mL injection solut ion RxNorm: 986827 Milliliter 01/13/2018 No longer Active cyanocobalamin (vit B-12) 1,000 mcg/mL injection solut ion RxNorm: 183835 Milliliter 12/06/2017 No longer Active cyanocobalamin (vit B-12) 1,000 mcg/mL injection solut ion RxNorm: 043756 1Milliliter 11/01/2017 No longer Active cyanocobalamin (vit B-12) 1,000 mcg/mL injection solut ion RxNorm: 820635 1Milliliter 09/28/2017 No longer Active Immunizations Vaccine [...] ICD- 10: D50.0 ICD-9: 280.0 09/27/2017 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 ICD-10: Z79.899 ICD-9: V58.69 [...] Item Item Code Result Date Free T4 Bjj022 FREE T4 1.22 ng/dL 09/20/2018 Cbc With [...] 25.0 pg 09/20/2018 Cbc With Differential Ord2 Levy% 8.1 % 09/20/2018 Cbc With Differential Ord2 [...] 1.73 K/ul 09/20/2018 Cbc With Differential Ord2 Levy ABS# 0.8 K/ul 09/20/2018 Cbc With Differential Ord2 Eos ABS# 0.4 K/ul 09/20/2018 Cbc With Differential Ord2 Baso ABS# 0.1 K/ul 09/20/2018 Lipid Ord30 CHOL 176 mg/dL 09/20/2018 Lipid Ord30 HDL 55.0 mg/dl 09/20/2018 Lipid Ord30 TRIG 133 mg/dL 09/20/2018 Lipid Ord30 LDL 94 mg/dL 09/20/2018 Lipid Ord30 C/HDL 3.2 Ratio 09/20/2018 Comp Metabolic Roz432 NA 140 mEq/L 09/20/2018 Comp Metabolic Kdo326 K 4.4 mEq/L 09/20/2018 Comp Metabolic Tdz175 CL 104 mEq/L 09/20/2018 Comp Metabolic Egm195 CO2 27.0 mEq/L 09/20/2018 Comp Metabolic Vaf813 AN ION GAP 13 09/20/2018 Comp Metabolic Kgb321 GL UCOSE 104 mg/dL 09/20/2018 Comp Metabolic Jwy997 Cr eat 0.6 mg/dL 09/20/2018 Comp Metabolic Wik681 eG FR 112 ml/min/1.73m2 07/2018 Comp Metabolic Gdp963 BUN 18 mg/dL 09/20/2018 Comp Metabolic Osx894 B/ C Ratio 29.5 Ratio 09/20/2018 Comp Metabolic Zdp638 CA LCIUM 9.4 mg/dL 09/20/2018 Comp Metabolic Mae251 AL K PHOS 97 U/L 09/20/2018 Comp Metabolic Ira962 T(SGOT) 13 U/L 09/20/2018 Comp Metabolic Uvr629 AL T(SGPT) 16 U/L 09/20/2018 Comp Metabolic Sdl602 BI LI T 0.2 mg/dL 09/20/2018 Comp Metabolic Doi637 AL BUMIN 4.0 g/dL 09/20/2018 Comp Metabolic Bsi309 TP RO 7.0 g/dL 09/20/2018 Comp Metabolic Dtp368 GL OB 3.0 g/dL 09/20/2018 Comp Metabolic Jkg513 A/ G Ratio 1.4 Ratio 09/20/2018 Comp Metabolic Hbu149 Os mo 282 mOsmo 09/20/2018 %Hba1C Vvz824 % HbA1c 94006-1 6.6 % 09/20/2018 %Hba1C Skc439 Gluc Ave 143 mg/dL 09/20/2018 Tsh Ord6 TSH (3rd IS) 1.85 uIU/mL 09/20/2018 Hgb & Hct Ord65 HGB 9.7 g/dl 10/06/2017 Hgb & Hct Ord65 HCT 33.5 % 10/06/2017 Hgb & Hct Ord65 HGB 8.6 g/dl 09/24/2017 Hgb & Hct Ord65 HCT 30.4 % 09/24/2017 B12 Whz725 B12 124.00 pg/ml 09/15/2017 Cbc With Differential [...] 20.0 pg 09/15/2017 Cbc With Differential Ord2 Levy% 7.7 % 09/15/2017 Cbc With Differential Ord2 [...] 1.94 K/ul 09/15/2017 Cbc With Differential Ord2 Levy ABS# 0.8 K/ul 09/15/2017 Cbc With Differential Ord2 Eos ABS# 0.5 K/ul 09/15/2017 Cbc With Differential Ord2 Baso ABS# 0.1 K/ul 09/15/2017 Tibc Ord40 Iron 21 ug/dl 09/15/2017 Tibc Ord40 UIBC 432 ug/dL 09/15/2017 Tibc Ord40 TIBC 453 ug/dL 09/15/2017 Tibc Ord40 Fe-%Sat 4.6 % 09/15/2017 Folate Ord36 Folate 15.31 ng/mL 09/15/2017 Ferritin Ord22 FERRITIN 4.3 ng/mL 09/15/2017 Free T4 Yrg028 FREE T4 0.88 ng/dL 09/10/2017 %Hba1C Kky207 % HbA1c 01175-7 6.7 % 09/10/2017 %Hba1C Tmg056 Gluc Ave 146 mg/dL 09/10/2017 Cbc With [...] 20.5 pg 09/10/2017 Cbc With Differential Ord2 Levy% 8.0 % 09/10/2017 Cbc With Differential Ord2 [...] 2.10 K/ul 09/10/2017 Cbc With Differential Ord2 Levy ABS# 0.7 K/ul 09/10/2017 Cbc With Differential Ord2 Eos ABS# 0.5 K/ul 09/10/2017 Cbc With Differential Ord2 Baso ABS# 0.0 K/ul 09/10/2017 Comp Metabolic Xpe519 NA 139 mEq/L 09/10/2017 Comp Metabolic Bcq228 K 4.6 mEq/L 09/10/2017 Comp Metabolic Vrk328 CL 103 mEq/L 09/10/2017 Comp Metabolic Sws140 CO2 28.0 mEq/L 09/10/2017 Comp Metabolic Hfi312 AN ION GAP 13 09/10/2017 Comp Metabolic Dpj920 GL UCOSE 91 mg/dL 09/10/2017 Comp Metabolic Cyx729 Cr eat 0.6 mg/dL 09/10/2017 Comp Metabolic Mrx683 eG FR 117 ml/min/1.73m2 08/20 Comp Metabolic Efg850 BUN 22 mg/dL 09/10/2017 Comp Metabolic Qpa757 B/ C Ratio 37.3 Ratio 09/10/2017 Comp Metabolic Jro077 CA LCIUM 9.6 mg/dL 09/10/2017 Comp Metabolic Pzm235 AL K PHOS 100 U/L 09/10/2017 Comp Metabolic Mme866 T(SGOT) 12 U/L 09/10/2017 Comp Metabolic Lqn552 AL T(SGPT) 13 U/L 09/10/2017 Comp Metabolic Bpr982 BI LI T 0.2 mg/dL 09/10/2017 Comp Metabolic Vfk277 AL BUMIN 3.9 g/dL 09/10/2017 Comp Metabolic Sdw085 TP RO 7.0 g/dL 09/10/2017 Comp Metabolic Okq720 GL OB 3.1 g/dL 09/10/2017 Comp Metabolic Lty677 A/ G Ratio 1.3 Ratio 09/10/2017 Comp Metabolic Wdu260 Os mo 280 mOsmo 09/10/2017 Tsh Ord6 TSH (3rd IS) 6.83 uIU/mL 09/10/2017 Free T4 Jns090 FREE T4 1.53 ng/dL 04/07/2017 Tsh Ord6 hTSH II 0.55 uIU/mL 04/07/2017 Tsh Ord6 hTSH II 0.55 uIU/mL 12/30/2016 Free T4 Fiq812 FREE T4 1.15 ng/dL 12/30/2016 %Hba1C Qvf620 % HbA1c 12461-9 6.0 % 10/01/2016 %Hba1C Mej032 Gluc Ave 126 mg/dL 10/01/2016 Tsh Ord6 hTSH II 0.19 uIU/mL 10/01/2016 Comp Metabolic Pyh480 NA 139 mEq/L 10/01/2016 Comp Metabolic Msf945 K 4.6 mEq/L 10/01/2016 Comp Metabolic Qbq466 CL 102 mEq/L 10/01/2016 Comp Metabolic Fmo525 CO2 28.0 mEq/L 10/01/2016 Comp Metabolic Xvt672 AN ION GAP 14 10/01/2016 Comp Metabolic Nld045 GL UCOSE 93 mg/dL 10/01/2016 Comp Metabolic Yse241 Cr eat 0.6 mg/dL 10/01/2016 Comp Metabolic Ajs253 eG FR 109 ml/min/1.73m2 09/19 Comp Metabolic Uit906 BUN 20 mg/dL 10/01/2016 Comp Metabolic Ogb511 B/ C Ratio 31.7 Ratio 10/01/2016 Comp Metabolic Uip860 CA LCIUM 9.8 mg/dL 10/01/2016 Comp Metabolic Ila824 AL K PHOS 114 U/L 10/01/2016 Comp Metabolic Zpb544 T(SGOT) 11 U/L 10/01/2016 Comp Metabolic Rcd639 AL T(SGPT) 12 U/L 10/01/2016 Comp Metabolic Bjk117 BI LI T 0.4 mg/dL 10/01/2016 Comp Metabolic Ppv722 AL BUMIN 4.3 g/dL 10/01/2016 Comp Metabolic Xze217 TP RO 7.2 g/dL 10/01/2016 Comp Metabolic Ohd372 GL OB 2.9 g/dL 10/01/2016 Comp Metabolic Pyq283 A/ G Ratio 1.5 Ratio 10/01/2016 Comp Metabolic Njc801 Os mo 280 mOsmo 10/01/2016 Free T4 Vea976 FREE T4 1.37 ng/dL 10/01/2016 Lipid Ord30 [...] 27.9 pg 10/01/2016 Cbc With Differential Ord2 Levy% 8.5 % 10/01/2016 Cbc With Differential Ord2 [...] 1.69 K/ul 10/01/2016 Cbc With Differential Ord2 Levy ABS# 0.7 K/ul 10/01/2016 Cbc With Differential [...] 22.7 pg 04/06/2016 Cbc With Differential Ord2 Levy% 8.2 % 04/06/2016 Cbc With Differential Ord2 [...] 1.48 K/ul 04/06/2016 Cbc With Differential Ord2 Levy ABS# 0.5 K/ul 04/06/2016 Cbc With Differential Ord2 Eos ABS# 0.4 K/ul 04/06/2016 Cbc With Differential Ord2 Baso ABS# 0.0 K/ul 04/06/2016 Ferritin Ord22 FERRITIN 5.8 ng/mL 04/06/2016 Free T4 Bch876 FREE T4 1.16 ng/dL 03/16/2016 %Hba1C Gst897 % HbA1c 23170-4 7.0 % 03/16/2016 %Hba1C Act720 Gluc Ave 154 mg/dL 03/16/2016 Cbc With [...] 23.2 pg 03/16/2016 Cbc With Differential Ord2 Levy% 4.8 % 03/16/2016 Cbc With Differential Ord2 [...] 1.75 K/ul 03/16/2016 Cbc With Differential Ord2 Levy ABS# 0.6 K/ul 03/16/2016 Cbc With Differential Ord2 Eos ABS# 0.4 K/ul 03/16/2016 Cbc With Differential Ord2 Baso ABS# 0.0 K/ul 03/16/2016 Tsh Ord6 hTSH II 1.39 uIU/mL 03/16/2016 Tsh Ord6 hTSH II 10.28 uIU/mL 11/14/2015 Free T4 Zza499 FREE T4 0.79 ng/dL 11/14/2015 Lipid Ord30 [...] 24.4 pg 11/14/2015 Cbc With Differential Ord2 Levy% 6.6 % 11/14/2015 Cbc With Differential Ord2 [...] 1.72 K/ul 11/14/2015 Cbc With Differential Ord2 Levy ABS# 0.8 K/ul 11/14/2015 Cbc With Differential Ord2 Eos ABS# 0.4 K/ul 11/14/2015 Cbc With Differential Ord2 Baso ABS# 0.0 K/ul 11/14/2015 Comp Metabolic Hkt545 NA 136 mEq/L 11/14/2015 Comp Metabolic Hjq764 K 4.4 mEq/L 11/14/2015 Comp Metabolic Cre717 CL 101 mEq/L 11/14/2015 Comp Metabolic Oge267 CO2 27.0 mEq/L 11/14/2015 Comp Metabolic Adp216 AN ION GAP 12 11/14/2015 Comp Metabolic Thl872 GL UCOSE 107 mg/dL 11/14/2015 Comp Metabolic Uuv908 Cr eat 0.6 mg/dL 11/14/2015 Comp Metabolic Qql434 eG FR 125 ml/min/1.73m2 10/20 Comp Metabolic Ane475 BUN 14 mg/dL 11/14/2015 Comp Metabolic Zfn135 B/ C Ratio 25.0 Ratio 11/14/2015 Comp Metabolic Arh831 CA LCIUM 9.6 mg/dL 11/14/2015 Comp Metabolic Yce453 AL K PHOS 104 U/L 11/14/2015 Comp Metabolic Lwc591 T(SGOT) 16 U/L 11/14/2015 Comp Metabolic Dbc381 AL T(SGPT) 14 U/L 11/14/2015 Comp Metabolic Bgl674 BI LI T 0.3 mg/dL 11/14/2015 Comp Metabolic Oiv434 AL BUMIN 4.0 g/dL 11/14/2015 Comp Metabolic Ran687 TP RO 7.2 g/dL 11/14/2015 Comp Metabolic Vez652 GL OB 3.2 g/dL 11/14/2015 Comp Metabolic Xqz479 A/ G Ratio 1.3 Ratio 11/14/2015 Comp Metabolic Raa086 Os mo 273 mOsmo 11/14/2015 %Hba1C Bap637 % HbA1c 47432-9 7.0 % 11/14/2015 %Hba1C Rhe352 Gluc Ave 154 mg/dL 11/14/2015 Free T4 Qkg903 FREE T4 0.49 ng/dL 08/02/2015 Tsh Ord6 hTSH II 44.41 uIU/mL 07/31/2015 %Hba1C Cpb599 % HbA1c 58201-0 6.7 % 07/31/2015 %Hba1C Kei327 Gluc Ave 146 mg/dL 07/31/2015 Cbc With [...] Differential Ord2 RDW 14.9 % 03/13/2015 %Hba1C Afa756 % HbA1c 27244-6 6.8 % 03/13/2015 %Hba1C Tlx596 Gluc Ave 148 mg/dL 03/13/2015 Tsh Ord6 hTSH II 0.95 uIU/mL 03/13/2015 Lipid Ord30 CHOL 146 mg/dL 03/13/2015 Lipid Ord30 HDL 40.0 mg/dl 03/13/2015 Lipid Ord30 TRIG 137 mg/dL 03/13/2015 Lipid Ord30 LDL 79 mg/dL 03/13/2015 Lipid Ord30 C/HDL 3.7 Ratio 03/13/2015 Comp Metabolic Ush440 NA 135 mEq/L 03/13/2015 Comp Metabolic Vcq330 K 4.5 mEq/L 03/13/2015 Comp Metabolic Vuk167 CL 99 mEq/L 03/13/2015 Comp Metabolic Mqx888 CO2 29.0 mEq/L 03/13/2015 Comp Metabolic Frh415 AN ION GAP 12 03/13/2015 Comp Metabolic Woh353 GL UCOSE 98 mg/dL 03/13/2015 Comp Metabolic Hpg447 Cr eat 0.7 mg/dL 03/13/2015 Comp Metabolic Sot548 eG FR 100 ml/min/1.73m2 02/20 Comp Metabolic Pdn217 BUN 13 mg/dL 03/13/2015 Comp Metabolic Snl064 B/ C Ratio 19.1 Ratio 03/13/2015 Comp Metabolic Adv869 CA LCIUM 9.8 mg/dL 03/13/2015 Comp Metabolic Oex860 AL K PHOS 91 U/L 03/13/2015 Comp Metabolic Ywj922 T(SGOT) 10 U/L 03/13/2015 Comp Metabolic Olb899 AL T(SGPT) 10 U/L 03/13/2015 Comp Metabolic Roy433 BI LI T 0.4 mg/dL 03/13/2015 Comp Metabolic Sng989 AL BUMIN 4.1 g/dL 03/13/2015 Comp Metabolic Qdv147 TP RO 6.9 g/dL 03/13/2015 Comp Metabolic Orl440 GL OB 2.8 g/dL 03/13/2015 Comp Metabolic Dlt756 A/ G Ratio 1.5 Ratio 03/13/2015 Comp Metabolic Her760 Os mo 270 mOsmo 03/13/2015 Free T4 Rww478 FREE T4 1.25 ng/dL 03/13/2015 Review of [...] Procedure Codes Date THER/PROPH/DIAG INJ SC/IM CPT-4: 19636 09/13/2018 VITAMIN B12 INJECTION CPT-4: J3420 09/13/2018 THER/PROPH/DIAG INJ SC/IM CPT-4: 47705 08/11/2018 VITAMIN B12 INJECTION CPT-4: J3420 08/11/2018 THER/PROPH/DIAG INJ SC/IM CPT-4: 87461 06/29/2018 THER/PROPH/DIAG INJ SC/IM CPT-4: 40045 03/23/2018 VITAMIN B12 INJECTION CPT-4: J3420 03/23/2018 THER/PROPH/DIAG INJ SC/IM CPT-4: 37632 02/07/2018 VITAMIN B12 INJECTION CPT-4: J3420 02/07/2018 THER/PROPH/DIAG INJ SC/IM CPT-4: 88902 01/13/2018 VITAMIN B12 INJECTION CPT-4: J3420 01/13/2018 VITAMIN B12 INJECTION CPT-4: J3420 12/06/2017 THER/PROPH/DIAG INJ SC/IM CPT-4: 63529 12/06/2017 THER/PROPH/DIAG INJ SC/IM CPT-4: 43199 11/01/2017 VITAMIN B12 INJECTION CPT-4: J3420 11/01/2017 THER/PROPH/DIAG INJ SC/IM CPT-4: 16468 09/28/2017 VITAMIN B12 INJECTION CPT-4: J3420 09/28/2017 Vital Signs Date Vital 09/21/2018 Blood Pressure 1: 122/74 Code: 8480-6 BMI: 45.5 Code: 27585-0 Heart Rate 1: 79 bpm Height: 5'3" SpO2: 98% Temperature: 36.9 (C ) / 98.5 (F) Weight: 257 lbs 11/01/2017 Heigh t: 5'3" 09/10/2017 Blood Pressure 1: 136/70 Code: 8480-6 BMI: 44.6 Code: 88172-0 Heart Rate 1: 91 bpm Height: 5'3" SpO2: 96% Weight: 252 lbs 10/13/2016 Blood Pressure 1: 134/82 Code: 8480-6 BMI: 43.6 Code: 20889-1 Heart Rate 1: 97 bpm Height: 5'3" SpO2: 97% Weight: 246 lbs 01/14/2016 Blood Pressure 1: 132/78 Code: 8480-6 BMI: 45.7 Code: 56316-4 Heart Rate 1: 90 bpm Height: 5'3" SpO2: 98% Weight: 258 lbs 07/31/2015 Blood Pressure 1: 142/80 Code: 8480-6 BMI: 45.7 Code: 37760-4 Heart Rate 1: 78 bpm Height: 5'3" SpO2: 96% Weight: 258 lbs 04/04/2015 Blood Pressure 1: 130/82 Code: 8480-6 BMI: 44.9 Code: 57712-6 Heart Rate 1: 90 bpm Height: 5'3" SpO2: 96% Weight: 253 lbs 5 oz 03/13/2015 Blood Pressure 1: 140/86 Code: 8480-6 BMI: 45.2 Code: 66185-5 Heart Rate 1: 87 bpm Height: 5'3" [...] of the thyroid 09/10/2017 None hypothyroid Quality chronic disease manager jatin 09/10/2017 None hypothyroid Onset and Resolution [...] the thyroid 10/13/2016 None hypothyroid Quality chronic disease manager jatin 10/13/2016 None hypothyroid Onset and Resolution [...] the thyroid 07/31/2015 None hypothyroid Quality chronic disease manager jatin 07/31/2015 None hypothyroid Onset and Resolution [...] the thyroid 03/13/2015 None hypothyroid Quality chronic disease manager jatin 03/13/2015 None hypothyroid Onset and Resolution [...] Encounters Encounter Performer Loca tion Codes Date [id number] EST. PATIENT, LEVEL IV Diagnosis: Acne vulgaris[ICD10: L70.0] Diagnosis: Type 2 diabetes mellitus with hyperglycemia[ICD10: E11.65] Diagnosis: Other specified hypothyroidism[ICD10: E03.8] Anyi Cano MD, [facility] CPT-4: 68431 09/21/2018 [id number] EST. PATIENT, LEVEL IV Diagnosis: Excessive and frequent menstruation with irregular cycle[ICD10: N92.1] Diagnosis: Type 2 diabetes mellitus with hyperglycemia[ICD10: E11.65] Diagnosis: Other specified hypothyroidism[ICD10: E03.8] Diagnosis: 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[ICD10: Z79.899] [facility] CPT-4: 53617 09/10/2017 52849 EST. PATIENT, LEVEL IV Diagnosis: Type 2 diabetes mellitus with hyperglycemia[ICD10: E11.65] Diagnosis: Other specified hypothyroidism[ICD10: E03.8] Diagnosis: 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[ICD10: Z79.899] Diagnosis: Umbilical hernia without obstruction or gangrene[ICD10: K42.9] Anyi Cano MD, [facility] CPT-4: 55924 10/13/2016 43421 EST. PATIENT, LEVEL IV Diagnosis: Other acute sinusitis[ICD10: J01.80] Diagnosis: Other allergic rhinitis[ICD10: J30.89] Diagnosis: Wheezing[ICD10: R06.2] Anyi Cano MD, [facility] CPT-4: 02728 01/14/2016 67092 EST. 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 P ATIENT, LEVEL III Diagnosis: Achilles tendinitis, left leg[ICD10: M76.62] Beba Cano MD, [facility] CPT-4: 15965 04/04/2015 ([id number]) OFFICE VISI T, NEW - LEVEL 4 Diagnosis: HYPERLIPIDEMIA[ICD9: 272.4] Diagnosis: DIABETES TYPE II[ICD9: 250.00] Diagnosis: HYPOTHYROIDISM[ICD9: 244.9] Diagnosis: ACHILLES TENDINITIS[ICD9: 726.71] Beba Cano MD, [facility] CPT-4: 87652 03/13/2015 Plan of Care Planned Activity Notes [...] control. 09/21/2018 App[facility]ment: [id number] ([facility] 09/21/2018 Patient Education: Patient Medication Summary Completed 09/21/2018 Patient Education: Patient Medication Summary Completed 09/19/2018 Appointment: Injection 09/13/2018 Patient Education: Patient Medication Summary Completed 09/13/2018 Appointment: Injection 08/11/2018 Patient Education: Patient Medication Summary Completed 08/11/2018 Appointment: Injection 06/29/2018 Patient Education: Patient Medication Summary Completed 06/29/2018 Patient Education: Patient Medication Summary Completed 04/05/2018 Care Plan[facility] 09140-9 Pending 04/05/2018 Appointment: Injection 03/23/2018 Patient Education: Patient Medication Summary Completed 03/23/2018 Appointment: Injection 02/07/2018 Patient Education: Patient Medication Summary Completed 02/07/2018 Appointment: Injection 01/13/2018 Patient Education: Patient Medication Summary Completed 01/13/2018 Patient Education: Patient Medication Summary Completed 01/12/2018 Care Plan: [facility] 70432-1 Pending 01/12/2018 Appointment: Injection 12/06/2017 Patient Education: [...] 09/14/2017 Care Plan: Referral Order SNOMED-CT : [id number] Pending 09/13/2017 Visit Plan: Diabetes Mellitus - [...] or pap done - will refer to SOLUTIONS OPERATOR due to pt symptoms and difficulty for exam - pt is to notify clinic with any changes or concerns. 09/10/2017 Appointment: [facility] Vel[facility]quez [phone] [id number] ([facility] min) Moderate 09/10/2017 Patient Education: Patient Medication Summary Completed 09/10/2017 Referral: Arvind Briseno [address] [facility] Referral Completed 10/27/2016 Referral: Arvind Briseno [facility] Referral Initiated 10/27/2016 Visit Plan: Umbilical [...] control. 10/13/2016 App[facility]ment: [facility]quez [id number] ([facility] min) Moderate 10/13/2016 Patient Education: Patient Medication Summary Completed 10/13/2016 Care Plan: Referral Order SNOMED-CT : [id number] Pending 10/13/2016 Visit Plan: Sinusitis - Pt [...] spray. 01/14/2016 Appointment: Melissa Newman WPtel: [phone] (30 min) Complex 01/14/2016 Patient Education: [...] improving. 04/04/2015 Appointment: [phone] ([facility]) Moderate 04/04/2015 Patient Education: Patient [...] that appt. 03/13/2015 Appointment: B[facility]o [facility]el[phone] [phone] [place] New Patient 03/13/2015 Patient Education: Patient Medication Summary Completed 03/13/2015 Patient Education: Hypertension Completed 03/13/2015 Patient Education: Patient Medication Summary Completed 10/24/2014 Referral: Katia Hunter WPtel: [address] [place] [address] they will call pt to schedule appt Initiated Referral: Katia Hunter WPtel: [phone] [place] [address] Referral Initiated Referral: Arvind Briseno [address] [place] [address] Referral Initiated Instructions Comment walk for 30 minutes 3-5 times a [...] or pap done - will refer to SOLUTIONS OPERATOR due to pt symptoms and difficulty for exam - pt is to notify clinic with any changes or concerns. Zyrtec or generic ov er the counter [...] based on previous levels of control. . Achilles Tendoniti s - Recommended pt [...] back to work at that appt. . Umbilical hernia - will refer to [...]
--- OUTSIDE RECORDS SUMMARY | 2020-01-06 14:44 | XMS REPORT | CCD ---
Author Author Lucia Cano Organization Beba Cano MD, [facility] Address [address] [place] [address] Phone Care Team Providers Care Supervisor Tumblers Name Role Phone PP Unavailable CCM Unavailable Summary Purpose Interface Exchange Insurance Providers Payer name Policy type / Coverage type Covered constitution party ID Effective Begin Date Effective End Date WPS Medicare Part B Medicare Part B [id number] Unknown [employer] Better [employer] in [facility] Part B [id number] Unk nown Family history Father Diagnosis Age [...] employed [employer] 04/04/[address]: 671761731 Never smoker 04/04/[address]: 622557264 Never drinks alcohol 04/04/2015 Has the patient [...] 706.1 ICD-10: L70.0 Active 09/21/2018 Unknown [facility] drug therapy ICD-9: V58.69 ICD-10: [...] ICD-9: 706.1 ICD-10: L70.0 09/21/2018 Active 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 ICD-9: V58.69 ICD-10: [...] Fill Instructions Farxiga 10 mg tablet RxNorm: 9696437 1 Tablet(s) PO daily 09/21/2018 01/18/[address] invokana Farxiga 10 mg tablet RxNorm: 7361685 1 Tablet(s) PO daily 09/21/2018 09/20/[address] invokana cyanocobalamin (vit B-12) 1,000 mcg/mL injection solution RxNorm: 683876 Milliliter(s) Inj 09/13/2018 09/13/2018 Inactive cyanocobalamin (vit B-12) 1,000 mcg/mL injection solution RxNorm: 178687 Milliliter(s) Inj 08/11/2018 08/11/2018 Inactive naproxen 500 mg tablet RxNorm: 726552 TAKE 1 TABLET BY MOUTH TWICE DAILY 08/09/2018 11/06/2018 Ac tive Generic For:NAPROSYN 500MG 08/09/2018 1 1:14:27 AM N O T I C E Last quantity doesn't match original quantity levothyroxine 200 mc g tablet RxNorm: 556362 1 Tablet(s) PO daily to take with the 50mcg daily to equal 250mcg daily 07/19/2018 04/14/2019 Active cyanocobalamin (vit B-12) 1,000 mcg/mL injection solution RxNorm: 966050 Milliliter(s) Inj 06/29/2018 06/29/2018 Inactive naproxen 500 mg tablet RxNorm: 937997 TAKE 1 TABLET BY MOUTH TWICE DAILY 05/19/2018 08/08/2018 In active Generic For:NAPROSYN 500MG 05/19/2018 1 0:56:16 AM N O T I C E Last quantity doesn't match original quantity Kenalog 40 mg/mL [facility] pension for injection RxNorm: 1020564 Milliliter(s) Inj 03/23/2018 03/23/2018 In active levothyroxine 50 mcg tablet RxNorm: 018602 TAKE 1 TABLET BY MOUT H ONCE DAILY WITH 200MCG (250MCG TOTAL) 03/11/2018 06/08/2018 Inactive Generic For:SYNTHROID 50MCG TAB 03/11/2018 9:09:32 AM naproxen 500 mg tablet RxNorm: 127785 TAKE 1 TABLET BY MOUTH TWICE DAILY 02/25/2018 05/18/2018 In active Generic For:NAPROSYN 500MG 02/25/2018 1 2:39:53 PM N O T I C E Last quantity doesn't match original quantity cyanocobalamin (vit B-12) 1,000 mcg/mL injection solution RxNorm: 578904 Milliliter(s) Inj 02/07/2018 02/07/2018 Inactive metformin 1,000 mg t ablet RxNorm: 416834 TAKE 1 TABLET BY MOUT H TWICE A DAY 01/19/2018 01/13/2019 Ac tive Generic For:*GLUCOPHAGE 1000MG 01/20/20 10:20:50 AM cyanocobalamin (vit B-12) 1,000 mcg/mL injection solution RxNorm: 435251 Milliliter(s) Inj 01/13/2018 01/13/2018 Inactive cyanocobalamin (vit B-12) 1,000 mcg/mL injection solution RxNorm: 054946 Milliliter(s) Inj 12/06/2017 12/06/2017 Inactive Lipitor 40 mg tablet RxNorm: 491313 TAKE 1 TABLET BY MOUTH DAILY 11/08/2017 11/02/2018 Active Generic For:LIPITOR 40MG 11/05/2017 5:1 0:24 PM Invokana 300 mg tablet RxNorm: 9608044 TAKE 1 TABLET BY MOUTH DAILY 11/08/2017 09/20/2018 In active 11/05/2017 5:10:44 PM naproxen 500 mg tablet RxNorm: 895578 TAKE 1 TABLET BY MOUTH TWICE DAILY 11/08/2017 02/05/2018 In active Generic For:NAPROSYN 500MG 11/08/2017 9 :14:56 AM N O T I C E Last quantity doesn't match original quantity levothyroxine 50 mcg tablet RxNorm: 410864 1 Tablet(s) PO daily to take with the 200mcg daily to equal 250mcg daily 11/08/2017 02/05/2018 Inactive cyanocobalamin (vit B-12) 1,000 mcg/mL injection solution RxNorm: 272885 1 Milliliter(s) Inj 11/01/2017 11/01/2017 Inactive cyanocobalamin (vit B-12) 1,000 mcg/mL injection solution RxNorm: 718971 1 Milliliter(s) Inj 09/28/2017 09/28/2017 Inactive levothyroxine 200 mc g tablet RxNorm: 668991 1 Tablet(s) PO daily to take with the 50mcg daily to equal 250mcg daily 09/14/2017 06/10/2018 Inactive levothyroxine 50 mcg tablet RxNorm: 273021 1 Tablet(s) PO daily to take with the 200mcg daily to equal 250mcg daily 09/14/2017 11/07/2017 Inactive naproxen 500 mg tablet RxNorm: 411013 TAKE 1 TABLET BY MOUTH TWICE DAILY 08/05/2017 11/02/2017 In active Generic For:NAPROSYN 500MG 08/05/2017 9 :04:47 AM N O T I C E Last quantity doesn't match original quantity naproxen 500 mg tablet RxNorm: 011707 TAKE 1 TABLET BY MOUTH TWICE DAILY 04/19/2017 08/04/2017 In active Generic For:NAPROSYN 500MG 04/19/2017 1 :49:28 PM Lipitor 40 mg tablet RxNorm: 727641 TAKE 1 TABLET BY MOUTH DAILY 03/22/2017 11/07/2017 Inactive Generic For:LIPITOR 40MG 03/20/2017 9:0 5:49 AM levothyroxine 25 mcg tablet RxNorm: 883595 1 Tablet(s) PO daily to take with her 200mcg to equal 225 mcg daily 03/22/2017 04/08/2017 Inactive Invokana 300 mg tablet RxNorm: 7621399 TAKE 1 TABLET BY MOUTH DAILY 12/21/2016 09/16/2017 In active 12/21/2016 9:03:03 AM levothyroxine 200 mc g tablet RxNorm: 434381 1 Tablet(s) PO daily 12/21/2016 09/13/2017 Inactive metformin 1,000 mg t ablet RxNorm: 299520 TAKE 1 TABLET BY MOUT H TWICE A DAY 11/26/2016 11/20/2017 In active Generic For:*GLUCOPHAGE 1000MG 11/27/19 1:05:15 PM naproxen 500 mg tablet RxNorm: 727411 1 Tablet(s) PO BID 10/21/2016 04/18/2017 Inactive levothyroxine 25 mcg tablet RxNorm: 052832 1 Tablet(s) PO daily to take with her 200mcg to equal 225 mcg daily 10/13/2016 01/10/2017 Inactive levothyroxine 50 mcg tablet RxNorm: 751496 1 Tablet(s) PO daily 09/21/2016 10/12/2016 Inactive Invokana 300 mg tablet RxNorm: 9689685 1 Tablet(s) PO daily 09/21/2016 12/19/2016 Inactive metformin 1,000 mg t ablet RxNorm: 178175 TAKE 1 TABLET BY MOUT H TWICE A DAY 09/21/2016 11/25/2016 In active Generic For:*GLUCOPHAGE 1000MG 09/22/19 17 8:53:30 AM levothyroxine 200 mc g tablet RxNorm: 109699 1 Tablet(s) PO daily 09/21/2016 12/19/2016 Inactive Lipitor 40 mg tablet RxNorm: 852467 TAKE 1 TABLET BY MOUTH DAILY 06/23/2016 03/19/2017 Inactive Generic For:LIPITOR 40MG 06/23/2016 9:1 2:42 AM levothyroxine 50 mcg tablet RxNorm: 591241 1 Tablet(s) PO daily TAKE 1 TABLET BY MOUTH DAILY 06/23/2016 09/20/2016 Inactive Generic For:SYNTHROID 50MCG TAB 06/23/2016 9:22:58 AM metformin 1,000 mg t ablet RxNorm: 665067 TAKE 1 TABLET BY MOUT H TWICE A DAY 06/23/2016 09/20/2016 In active Generic For:*GLUCOPHAGE 1000MG 06/23/19 17 9:12:46 AM levothyroxine 200 mc g tablet RxNorm: 223485 1 Tablet(s) PO daily 04/24/2016 08/21/2016 Inactive naproxen 500 mg tablet RxNorm: 537200 1 Tablet(s) PO BID 03/26/2016 10/20/2016 Inactive levothyroxine 50 mcg tablet RxNorm: 569461 1 Tablet(s) PO daily 03/25/2016 06/23/2016 Inactive Flonase Allergy Reli ef 50 mcg/actuation nasal spray,suspension RxNorm: 6044585 1 [place] NASAL BID 01/14/2016 No Stop Date Active prednisone 20 mg tablet RxNorm: 246487 2 Tablet(s) PO daily 01/14/2016 01/16/2016 Inactive Zithromax Z-Michael 250 mg tablet RxNorm: 138249 Tablet(s) PO 01/14/2016 02/25/2016 Inactive levothyroxine 200 mc g tablet RxNorm: 013586 1 Tablet(s) PO daily 11/25/2015 03/23/2016 Inactive levothyroxine 50 mcg tablet RxNorm: 893054 1 Tablet(s) PO daily 11/25/2015 03/23/2016 Inactive Invokana 300 mg tablet RxNorm: 5759375 1 Tablet(s) PO daily 11/25/2015 09/20/2016 Inactive metformin 1,000 mg t ablet RxNorm: 726266 TAKE 1 TABLET BY MOUT H TWICE A DAY 08/22/2015 05/17/2016 In active Generic For:*GLUCOPHAGE 1000MG N O T I C E PRESCRIPTION PREVIOUSLY AUTHORIZED BY DOCTOR:PEDRO SIMPSON levothyroxine 200 mc g tablet RxNorm: 305164 1 Tablet(s) PO daily 08/02/2015 11/24/2015 Inactive levothyroxine 25 mcg tablet RxNorm: 152893 1 Tablet(s) PO daily 08/02/2015 11/24/2015 Inactive levothyroxine 25 mcg tablet RxNorm: 880472 1 Tablet(s) PO daily 08/02/2015 08/01/2015 Inactive Zithromax Z-Michael 250 mg tablet RxNorm: 719975 Tablet(s) PO 07/31/2015 10/27/2015 Inactive naproxen 500 mg tablet RxNorm: 193640 1 Tablet(s) PO BID 07/31/2015 02/25/2016 Inactive Lipitor 40 mg tablet RxNorm: 394324 TAKE 1 TABLET BY MOUTH DAILY 05/26/2015 05/19/2016 Inactive Generic For:LIPITOR 40MG 05/25/2015 10: 36:19 AM levothyroxine 200 mc g tablet RxNorm: 384938 TAKE 1 TABLET ONCE DA SUKUMAR WITH 50MCG TABLET TO MAKE 250MCG. 05/26/2015 07/30/2015 Inactive Generic For:SYNTHROID 200MC G TAB 05/25/2015 10:36:11 AM Invokana 100 mg tablet RxNorm: 1352042 1 Tablet(s) PO daily 03/15/2015 03/14/2015 Inactive Invokana 100 mg tablet RxNorm: 2871706 1 Tablet(s) PO daily 03/15/2015 11/24/2015 Inactive naproxen 500 mg tablet RxNorm: 583993 1 Tablet(s) PO BID 03/13/2015 07/30/2015 Inactive metformin 1,000 mg t ablet RxNorm: 009592 1 Tablet(s) PO BID 03/13/2015 08/21/2015 Inactive levothyroxine 200 mc g tablet RxNorm: 773547 TAKE 1 TABLET ONCE DA SUKUMAR WITH 50MCG TABLET TO MAKE 250MCG. 02/12/2015 05/12/2015 Inactive Generic For:SYNTHROID 200MC G TAB 02/12/2015 11:50:50 AM Lipitor 40 mg tablet RxNorm: 919364 TAKE 1 TABLET BY MOUTH DAILY 02/12/2015 05/12/2015 Inactive Generic For:LIPITOR 40MG 02/12/2015 11: 50:55 AM levothyroxine 200 mc g tablet RxNorm: 541080 1 Tablet(s) PO daily 11/19/2014 02/11/2015 Inactive levothyroxine 200 mc g tablet RxNorm: 629362 1 Tablet(s) PO daily 11/19/2014 11/18/2014 Inactive Lipitor 40 mg tablet RxNorm: 878356 1 Tablet(s) PO daily call and make appt. 11/19/2014 02/11/2015 In active Lipitor 40 mg tablet RxNorm: 451883 1 Tablet(s) PO daily call and make appt. 11/15/2014 11/18/2014 In active Lipitor 40 mg tablet RxNorm: 097914 1 Tablet(s) PO daily call and make appt. 11/15/2014 11/14/2014 In active [place] with Iro n oral RxNorm: oral No Start D ate Active Vitamin B-12 1,000 m cg/mL injection solution RxNorm: 402415 1 Milliliter(s) Inj m onthly No Start Date Active levothyroxine 200 mc g tablet RxNorm: 320457 1 Tablet(s) PO daily No Start Date 08/01/2015 Inactive Medication Administered Medication Codes Instruc tions Start Date Status cyanocobalamin (vit B-12) 1,000 mcg/mL injection solut ion RxNorm: 663508 Milliliter 09/13/2018 No longer Active cyanocobalamin (vit B-12) 1,000 mcg/mL injection solut ion RxNorm: 935906 Milliliter 08/11/2018 No longer Active cyanocobalamin (vit B-12) 1,000 mcg/mL injection solut ion RxNorm: 751820 Milliliter 06/29/2018 No longer Active Kenalog 40 mg/mL suspension for injection RxNorm: 9391875 Milliliter 03/23/2018 No longer Active cyanocobalamin (vit B-12) 1,000 mcg/mL injection solut ion RxNorm: 692840 Milliliter 02/07/2018 No longer Active cyanocobalamin (vit B-12) 1,000 mcg/mL injection solut ion RxNorm: 456730 Milliliter 01/13/2018 No longer Active cyanocobalamin (vit B-12) 1,000 mcg/mL injection solut ion RxNorm: 973442 Milliliter 12/06/2017 No longer Active cyanocobalamin (vit B-12) 1,000 mcg/mL injection solut ion RxNorm: 494322 1Milliliter 11/01/2017 No longer Active cyanocobalamin (vit B-12) 1,000 mcg/mL injection solut ion RxNorm: 089556 1Milliliter 09/28/2017 No longer Active Immunizations Vaccine [...] ICD- 10: D50.0 ICD-9: 280.0 09/27/2017 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 ICD-10: Z79.899 ICD-9: V58.69 [...] Item Item Code Result Date Free T4 Ruf039 FREE T4 1.22 ng/dL 09/20/2018 Cbc With [...] 25.0 pg 09/20/2018 Cbc With Differential Ord2 [place]% 8.1 % 09/20/2018 Cbc With Differential Ord2 [...] 1.73 K/ul 09/20/2018 Cbc With Differential Ord2 [place] ABS# 0.8 K/ul 09/20/2018 Cbc With Differential Ord2 Eos ABS# 0.4 K/ul 09/20/2018 Cbc With Differential Ord2 Baso ABS# 0.1 K/ul 09/20/2018 Lipid Ord30 CHOL 176 mg/dL 09/20/2018 Lipid Ord30 HDL 55.0 mg/dl 09/20/2018 Lipid Ord30 TRIG 133 mg/dL 09/20/2018 Lipid Ord30 LDL 94 mg/dL 09/20/2018 Lipid Ord30 C/HDL 3.2 Ratio 09/20/2018 Comp Metabolic Nom808 NA 140 mEq/L 09/20/2018 Comp Metabolic Lek293 K 4.4 mEq/L 09/20/2018 Comp Metabolic Tik075 CL 104 mEq/L 09/20/2018 Comp Metabolic Iqf506 CO2 27.0 mEq/L 09/20/2018 Comp Metabolic Tzi855 AN ION GAP 13 09/20/2018 Comp Metabolic Xsr721 GL UCOSE 104 mg/dL 09/20/2018 Comp Metabolic Dev413 Cr eat 0.6 mg/dL 09/20/2018 Comp Metabolic Vor408 eG FR 112 ml/min/1.73m2 07/2018 Comp Metabolic Nvl142 BUN 18 mg/dL 09/20/2018 Comp Metabolic Ucf457 B/ C Ratio 29.5 Ratio 09/20/2018 Comp Metabolic Ief038 CA LCIUM 9.4 mg/dL 09/20/2018 Comp Metabolic But959 AL K PHOS 97 U/L 09/20/2018 Comp Metabolic Ycz420 T(SGOT) 13 U/L 09/20/2018 Comp Metabolic Imx594 AL T(SGPT) 16 U/L 09/20/2018 Comp Metabolic Lft036 BI LI T 0.2 mg/dL 09/20/2018 Comp Metabolic Oif671 AL BUMIN 4.0 g/dL 09/20/2018 Comp Metabolic Wip127 TP RO 7.0 g/dL 09/20/2018 Comp Metabolic Ace830 GL OB 3.0 g/dL 09/20/2018 Comp Metabolic Dmy558 A/ G Ratio 1.4 Ratio 09/20/2018 Comp Metabolic Qdf828 Os mo 282 mOsmo 09/20/2018 %Hba1C Brc525 % HbA1c 73290-4 6.6 % 09/20/2018 %Hba1C Lgm851 Gluc Ave 143 mg/dL 09/20/2018 Tsh Ord6 TSH (3rd IS) 1.85 uIU/mL 09/20/2018 Hgb & Hct Ord65 HGB 9.7 g/dl 10/06/2017 Hgb & Hct Ord65 HCT 33.5 % 10/06/2017 Hgb & Hct Ord65 HGB 8.6 g/dl 09/24/2017 Hgb & Hct Ord65 HCT 30.4 % 09/24/2017 B12 Mks500 B12 124.00 pg/ml 09/15/2017 Cbc With Differential [...] 20.0 pg 09/15/2017 Cbc With Differential Ord2 [place]% 7.7 % 09/15/2017 Cbc With Differential Ord2 [...] 1.94 K/ul 09/15/2017 Cbc With Differential Ord2 [place] ABS# 0.8 K/ul 09/15/2017 Cbc With Differential Ord2 Eos ABS# 0.5 K/ul 09/15/2017 Cbc With Differential Ord2 Baso ABS# 0.1 K/ul 09/15/2017 Tibc Ord40 Iron 21 ug/dl 09/15/2017 Tibc Ord40 UIBC 432 ug/dL 09/15/2017 Tibc Ord40 TIBC 453 ug/dL 09/15/2017 Tibc Ord40 Fe-%Sat 4.6 % 09/15/2017 Folate Ord36 Folate 15.31 ng/mL 09/15/2017 Ferritin Ord22 FERRITIN 4.3 ng/mL 09/15/2017 Free T4 Htn187 FREE T4 0.88 ng/dL 09/10/2017 %Hba1C Mhx228 % HbA1c 64534-6 6.7 % 09/10/2017 %Hba1C Dri550 Gluc Ave 146 mg/dL 09/10/2017 Cbc With [...] 20.5 pg 09/10/2017 Cbc With Differential Ord2 [place]% 8.0 % 09/10/2017 Cbc With Differential Ord2 [...] 2.10 K/ul 09/10/2017 Cbc With Differential Ord2 [place] ABS# 0.7 K/ul 09/10/2017 Cbc With Differential Ord2 Eos ABS# 0.5 K/ul 09/10/2017 Cbc With Differential Ord2 Baso ABS# 0.0 K/ul 09/10/2017 Comp Metabolic Eqn869 NA 139 mEq/L 09/10/2017 Comp Metabolic Hvx434 K 4.6 mEq/L 09/10/2017 Comp Metabolic Moq339 CL 103 mEq/L 09/10/2017 Comp Metabolic Ier448 CO2 28.0 mEq/L 09/10/2017 Comp Metabolic Wwd146 AN ION GAP 13 09/10/2017 Comp Metabolic Qdq817 GL UCOSE 91 mg/dL 09/10/2017 Comp Metabolic Yrb632 Cr eat 0.6 mg/dL 09/10/2017 Comp Metabolic Vbw531 eG FR 117 ml/min/1.73m2 08/20 Comp Metabolic Zfn343 BUN 22 mg/dL 09/10/2017 Comp Metabolic Mfa379 B/ C Ratio 37.3 Ratio 09/10/2017 Comp Metabolic Gck311 CA LCIUM 9.6 mg/dL 09/10/2017 Comp Metabolic Qhj532 AL K PHOS 100 U/L 09/10/2017 Comp Metabolic Rbg493 T(SGOT) 12 U/L 09/10/2017 Comp Metabolic Shz297 AL T(SGPT) 13 U/L 09/10/2017 Comp Metabolic Wan805 BI LI T 0.2 mg/dL 09/10/2017 Comp Metabolic Crj584 AL BUMIN 3.9 g/dL 09/10/2017 Comp Metabolic Nte629 TP RO 7.0 g/dL 09/10/2017 Comp Metabolic Ugb239 GL OB 3.1 g/dL 09/10/2017 Comp Metabolic Kmq356 A/ G Ratio 1.3 Ratio 09/10/2017 Comp Metabolic Ntj929 Os mo 280 mOsmo 09/10/2017 Tsh Ord6 TSH (3rd IS) 6.83 uIU/mL 09/10/2017 Free T4 Sng063 FREE T4 1.53 ng/dL 04/07/2017 Tsh Ord6 hTSH II 0.55 uIU/mL 04/07/2017 Tsh Ord6 hTSH II 0.55 uIU/mL 12/30/2016 Free T4 Xxp078 FREE T4 1.15 ng/dL 12/30/2016 %Hba1C Nmo223 % HbA1c 06523-9 6.0 % 10/01/2016 %Hba1C Mew038 Gluc Ave 126 mg/dL 10/01/2016 Tsh Ord6 hTSH II 0.19 uIU/mL 10/01/2016 Comp Metabolic Grx152 NA 139 mEq/L 10/01/2016 Comp Metabolic Tls834 K 4.6 mEq/L 10/01/2016 Comp Metabolic Qib285 CL 102 mEq/L 10/01/2016 Comp Metabolic Htf591 CO2 28.0 mEq/L 10/01/2016 Comp Metabolic Ffm973 AN ION GAP 14 10/01/2016 Comp Metabolic Jxu646 GL UCOSE 93 mg/dL 10/01/2016 Comp Metabolic Wbn355 Cr eat 0.6 mg/dL 10/01/2016 Comp Metabolic Ekc554 eG FR 109 ml/min/1.73m2 09/19 Comp Metabolic Opc150 BUN 20 mg/dL 10/01/2016 Comp Metabolic Xhp942 B/ C Ratio 31.7 Ratio 10/01/2016 Comp Metabolic Atz531 CA LCIUM 9.8 mg/dL 10/01/2016 Comp Metabolic Edo226 AL K PHOS 114 U/L 10/01/2016 Comp Metabolic Wzz406 T(SGOT) 11 U/L 10/01/2016 Comp Metabolic Xlp454 AL T(SGPT) 12 U/L 10/01/2016 Comp Metabolic Xfp981 BI LI T 0.4 mg/dL 10/01/2016 Comp Metabolic Njy098 AL BUMIN 4.3 g/dL 10/01/2016 Comp Metabolic Ydt392 TP RO 7.2 g/dL 10/01/2016 Comp Metabolic Qqs996 GL OB 2.9 g/dL 10/01/2016 Comp Metabolic Qda154 A/ G Ratio 1.5 Ratio 10/01/2016 Comp Metabolic Mzt357 Os mo 280 mOsmo 10/01/2016 Free T4 Umv075 FREE T4 1.37 ng/dL 10/01/2016 Lipid Ord30 [...] 27.9 pg 10/01/2016 Cbc With Differential Ord2 [place]% 8.5 % 10/01/2016 Cbc With Differential Ord2 [...] 1.69 K/ul 10/01/2016 Cbc With Differential Ord2 [place] ABS# 0.7 K/ul 10/01/2016 Cbc With Differential [...] 22.7 pg 04/06/2016 Cbc With Differential Ord2 [place]% 8.2 % 04/06/2016 Cbc With Differential Ord2 [...] 1.48 K/ul 04/06/2016 Cbc With Differential Ord2 [place] ABS# 0.5 K/ul 04/06/2016 Cbc With Differential Ord2 Eos ABS# 0.4 K/ul 04/06/2016 Cbc With Differential Ord2 Baso ABS# 0.0 K/ul 04/06/2016 Ferritin Ord22 FERRITIN 5.8 ng/mL 04/06/2016 Free T4 Mmz387 FREE T4 1.16 ng/dL 03/16/2016 %Hba1C Ynr752 % HbA1c 32813-9 7.0 % 03/16/2016 %Hba1C Joh079 Gluc Ave 154 mg/dL 03/16/2016 Cbc With [...] 23.2 pg 03/16/2016 Cbc With Differential Ord2 [place]% 4.8 % 03/16/2016 Cbc With Differential Ord2 [...] 1.75 K/ul 03/16/2016 Cbc With Differential Ord2 [place] ABS# 0.6 K/ul 03/16/2016 Cbc With Differential Ord2 Eos ABS# 0.4 K/ul 03/16/2016 Cbc With Differential Ord2 Baso ABS# 0.0 K/ul 03/16/2016 Tsh Ord6 hTSH II 1.39 uIU/mL 03/16/2016 Tsh Ord6 hTSH II 10.28 uIU/mL 11/14/2015 Free T4 Ccs001 FREE T4 0.79 ng/dL 11/14/2015 Lipid Ord30 [...] 24.4 pg 11/14/2015 Cbc With Differential Ord2 [place]% 6.6 % 11/14/2015 Cbc With Differential Ord2 [...] 1.72 K/ul 11/14/2015 Cbc With Differential Ord2 [place] ABS# 0.8 K/ul 11/14/2015 Cbc With Differential Ord2 Eos ABS# 0.4 K/ul 11/14/2015 Cbc With Differential Ord2 Baso ABS# 0.0 K/ul 11/14/2015 Comp Metabolic Fep946 NA 136 mEq/L 11/14/2015 Comp Metabolic Enh296 K 4.4 mEq/L 11/14/2015 Comp Metabolic Pkv274 CL 101 mEq/L 11/14/2015 Comp Metabolic Raq407 CO2 27.0 mEq/L 11/14/2015 Comp Metabolic Vzw119 AN ION GAP 12 11/14/2015 Comp Metabolic Qds547 GL UCOSE 107 mg/dL 11/14/2015 Comp Metabolic Enq460 Cr eat 0.6 mg/dL 11/14/2015 Comp Metabolic Ywt105 eG FR 125 ml/min/1.73m2 10/20 Comp Metabolic Xww874 BUN 14 mg/dL 11/14/2015 Comp Metabolic Ikz627 B/ C Ratio 25.0 Ratio 11/14/2015 Comp Metabolic Dnj712 CA LCIUM 9.6 mg/dL 11/14/2015 Comp Metabolic Kbr767 AL K PHOS 104 U/L 11/14/2015 Comp Metabolic Pse285 T(SGOT) 16 U/L 11/14/2015 Comp Metabolic Tsr689 AL T(SGPT) 14 U/L 11/14/2015 Comp Metabolic Gav674 BI LI T 0.3 mg/dL 11/14/2015 Comp Metabolic Ush205 AL BUMIN 4.0 g/dL 11/14/2015 Comp Metabolic Hwd052 TP RO 7.2 g/dL 11/14/2015 Comp Metabolic Uwg882 GL OB 3.2 g/dL 11/14/2015 Comp Metabolic Pue295 A/ G Ratio 1.3 Ratio 11/14/2015 Comp Metabolic Jbi580 Os mo 273 mOsmo 11/14/2015 %Hba1C Yvx696 % HbA1c 47580-7 7.0 % 11/14/2015 %Hba1C Oab325 Gluc Ave 154 mg/dL 11/14/2015 Free T4 Yuf308 FREE T4 0.49 ng/dL 08/02/2015 Tsh Ord6 hTSH II 44.41 uIU/mL 07/31/2015 %Hba1C Ftk627 % HbA1c 56834-2 6.7 % 07/31/2015 %Hba1C Tpo088 Gluc Ave 146 mg/dL 07/31/2015 Cbc With [...] Differential Ord2 RDW 14.9 % 03/13/2015 %Hba1C Gcp414 % HbA1c 05622-5 6.8 % 03/13/2015 %Hba1C Bae808 Gluc Ave 148 mg/dL 03/13/2015 Tsh Ord6 hTSH II 0.95 uIU/mL 03/13/2015 Lipid Ord30 CHOL 146 mg/dL 03/13/2015 Lipid Ord30 HDL 40.0 mg/dl 03/13/2015 Lipid Ord30 TRIG 137 mg/dL 03/13/2015 Lipid Ord30 LDL 79 mg/dL 03/13/2015 Lipid Ord30 C/HDL 3.7 Ratio 03/13/2015 Comp Metabolic Qtw755 NA 135 mEq/L 03/13/2015 Comp Metabolic Qba906 K 4.5 mEq/L 03/13/2015 Comp Metabolic Iyk861 CL 99 mEq/L 03/13/2015 Comp Metabolic Urm922 CO2 29.0 mEq/L 03/13/2015 Comp Metabolic Kyt925 AN ION GAP 12 03/13/2015 Comp Metabolic Mvj260 GL UCOSE 98 mg/dL 03/13/2015 Comp Metabolic Gwi724 Cr eat 0.7 mg/dL 03/13/2015 Comp Metabolic Wqg645 eG FR 100 ml/min/1.73m2 02/20 Comp Metabolic Lxs638 BUN 13 mg/dL 03/13/2015 Comp Metabolic Vmv349 B/ C Ratio 19.1 Ratio 03/13/2015 Comp Metabolic Mwo656 CA LCIUM 9.8 mg/dL 03/13/2015 Comp Metabolic Cup840 AL K PHOS 91 U/L 03/13/2015 Comp Metabolic Fbz133 T(SGOT) 10 U/L 03/13/2015 Comp Metabolic Rvc732 AL T(SGPT) 10 U/L 03/13/2015 Comp Metabolic Oln662 BI LI T 0.4 mg/dL 03/13/2015 Comp Metabolic Jwp949 AL BUMIN 4.1 g/dL 03/13/2015 Comp Metabolic Mda789 TP RO 6.9 g/dL 03/13/2015 Comp Metabolic Qvu378 GL OB 2.8 g/dL 03/13/2015 Comp Metabolic Dhr568 A/ G Ratio 1.5 Ratio 03/13/2015 Comp Metabolic Xsh966 Os mo 270 mOsmo 03/13/2015 Free T4 Xnx134 FREE T4 1.25 ng/dL 03/13/2015 Review of [...] Procedure Codes Date THER/PROPH/DIAG INJ SC/IM CPT-4: 32497 09/13/2018 VITAMIN B12 INJECTION CPT-4: J3420 09/13/2018 THER/PROPH/DIAG INJ SC/IM CPT-4: 29220 08/11/2018 VITAMIN B12 INJECTION CPT-4: J3420 08/11/2018 THER/PROPH/DIAG INJ SC/IM CPT-4: 30114 06/29/2018 THER/PROPH/DIAG INJ SC/IM CPT-4: 98972 03/23/2018 VITAMIN B12 INJECTION CPT-4: J3420 03/23/2018 THER/PROPH/DIAG INJ SC/IM CPT-4: 41676 02/07/2018 VITAMIN B12 INJECTION CPT-4: J3420 02/07/2018 THER/PROPH/DIAG INJ SC/IM CPT-4: 75562 01/13/2018 VITAMIN B12 INJECTION CPT-4: J3420 01/13/2018 VITAMIN B12 INJECTION CPT-4: J3420 12/06/2017 THER/PROPH/DIAG INJ SC/IM CPT-4: 07347 12/06/2017 THER/PROPH/DIAG INJ SC/IM CPT-4: 51277 11/01/2017 VITAMIN B12 INJECTION CPT-4: J3420 11/01/2017 THER/PROPH/DIAG INJ SC/IM CPT-4: 19903 09/28/2017 VITAMIN B12 INJECTION CPT-4: J3420 09/28/2017 Vital Signs Date Vital 09/21/2018 Blood Pressure 1: 122/74 Code: 8480-6 BMI: 45.5 Code: 15111-1 Heart Rate 1: 79 bpm Height: 5'3" SpO2: 98% Temperature: 36.9 (C ) / 98.5 (F) Weight: 257 lbs 11/01/2017 Heigh t: 5'3" 09/10/2017 Blood Pressure 1: 136/70 Code: 8480-6 BMI: 44.6 Code: 07347-5 Heart Rate 1: 91 bpm Height: 5'3" SpO2: 96% Weight: 252 lbs 10/13/2016 Blood Pressure 1: 134/82 Code: 8480-6 BMI: 43.6 Code: 53773-1 Heart Rate 1: 97 bpm Height: 5'3" SpO2: 97% Weight: 246 lbs 01/14/2016 Blood Pressure 1: 132/78 Code: 8480-6 BMI: 45.7 Code: 47752-6 Heart Rate 1: 90 bpm Height: 5'3" SpO2: 98% Weight: 258 lbs 07/31/2015 Blood Pressure 1: 142/80 Code: 8480-6 BMI: 45.7 Code: 66094-3 Heart Rate 1: 78 bpm Height: 5'3" SpO2: 96% Weight: 258 lbs 04/04/2015 Blood Pressure 1: 130/82 Code: 8480-6 BMI: 44.9 Code: 11990-8 Heart Rate 1: 90 bpm Height: 5'3" SpO2: 96% Weight: 253 lbs 5 oz 03/13/2015 Blood Pressure 1: 140/86 Code: 8480-6 BMI: 45.2 Code: 47575-2 Heart Rate 1: 87 bpm Height: 5'3" [...] of the thyroid 09/10/2017 None hypothyroid [employer] jatin 09/10/2017 None hypothyroid Onset and [...] of the thyroid 10/13/2016 None hypothyroid [employer]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 PATIENT, LEVEL IV Diagnosis: Acne vulgaris[ICD10: L70.0] Diagnosis: Type 2 diabetes mellitus with hyperglycemia[ICD10: E11.65] Diagnosis: Other specified hypothyroidism[ICD10: E03.8] Anyi Cano MD, [facility] CPT-4: 61694 09/21/2018 [id number] EST. 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 PATIENT, LEVEL IV Diagnosis: Type 2 diabetes mellitus with hyperglycemia[ICD10: E11.65] Diagnosis: Other specified hypothyroidism[ICD10: E03.8] Diagnosis: 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[ICD10: Z79.899] Diagnosis: Umbilical hernia without obstruction or gangrene[ICD10: K42.9] Anyi Cano MD, [facility] CPT-4: 93271 10/13/2016 17604 EST. PATIENT, LEVEL IV Diagnosis: Other acute sinusitis[ICD10: J01.80] Diagnosis: Other allergic rhinitis[ICD10: J30.89] Diagnosis: Wheezing[ICD10: R06.2] Anyi Cano MD, [facility] CPT-4: 16207 01/14/2016 79794 EST. 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 P ATIENT, LEVEL III Diagnosis: Achilles tendinitis, left leg[ICD10: M76.62] Beba Cano MD, [facility] CPT-4: 18676 04/04/2015 ([id number]) OFFICE VISI T, NEW - LEVEL 4 Diagnosis: HYPERLIPIDEMIA[ICD9: 272.4] Diagnosis: DIABETES TYPE II[ICD9: 250.00] Diagnosis: HYPOTHYROIDISM[ICD9: 244.9] Diagnosis: ACHILLES TENDINITIS[ICD9: 726.71] Beba Cano MD, [facility] CPT-4: 57501 03/13/2015 Plan of Care Planned Activity Notes [...] control. 09/21/2018 Appointment: [id number] ([facility] 09/21/2018 Patient Education: Patient Medication Summary Completed 09/21/2018 Patient Education: Patient Medication Summary Completed 09/19/2018 Appointment: Injection 09/13/2018 Patient Education: Patient Medication Summary Completed 09/13/2018 Appointment: Injection 08/11/2018 Patient Education: Patient Medication Summary Completed 08/11/2018 Appointment: Injection 06/29/2018 Patient Education: Patient Medication Summary Completed 06/29/2018 Patient Education: Patient Medication Summary Completed 04/05/2018 Care Plan: [facility] : [id number] Pending 04/05/2018 Appointment: Injection 03/23/2018 Patient Education: Patient Medication Summary Completed 03/23/2018 Appointment: Injection 02/07/2018 Patient Education: Patient Medication Summary Completed 02/07/2018 Appointment: Injection 01/13/2018 Patient Education: Patient Medication Summary Completed 01/13/2018 Patient Education: Patient Medication Summary Completed 01/12/2018 Care Plan: [facility] : [id number] Pending 01/12/2018 Appointment: Injection 12/06/2017 Patient Education: [...] 09/14/2017 Care Plan: Referral Order SNOMED-CT : [id number] Pending 09/13/2017 Visit Plan: Diabetes Mellitus - [...] or pap done - will refer to [facility] due to pt symptoms and difficulty for exam - pt is to notify clinic with any changes or concerns. 09/10/2017 Appointment: Any[facility] Vel[facility]quez [id number] ([facility] min) Moderate 09/10/2017 Patient Education: Patient Medication Summary Completed 09/10/2017 Referral: Arvind Briseno [address] [facility] Referral Completed 10/27/2016 Referral: Arvind Briseno [facility] Referral Initiated 10/27/2016 Visit Plan: Umbilical [...] control. 10/13/2016 Appointment: Any[facility] Velázquez [id number] (15 min) Moderate 10/13/2016 Patient Education: Patient Medication Summary Completed 10/13/2016 Care Plan: Referral Order SNOMED-CT : [id number] Pending 10/13/2016 Visit Plan: Sinusitis - Pt [...] allergy spray. 01/14/2016 Appointment: Melissa Newman WPtel: [phone] (30 min) Complex 01/14/2016 Patient Education: Patient [...] not improving. 04/04/2015 App[facility]ment: [id number] ([facility] min) Moderate 04/04/2015 Patient Education: [...] that appt. 03/13/2015 Appointment: Beba Cano [facility]el[id number] [place] [facility] New Patient 03/13/2015 Patient Education: Patient Medication Summary Completed 03/13/2015 Patient Education: Hypertension Completed 03/13/2015 Patient Education: Patient Medication Summary Completed 10/24/2014 Referral: Katia Hunter WPtel: [address] [place] [address] they will call pt to schedule appt Initiated Referral: Katia Hunter WPtel: [phone] [place] [address] Referral Initiated Referral: Arvind Briseno [address] [place] [address] Referral Initiated Instructions Comment Zyrtec or generic ov er the counter [...] with naproxen. Call if not improving. . Umbilical hernia - will refer to [...] or pap done - will refer to [facility] due to pt symptoms and difficulty for [...] in the nasal steroid allergy spray. . Hypothyroidism - p t with chronic [...]
--- NOTE | 2020-01-06 14:45 | NUR ---
PT TO RADIOLOGY AT THIS TIME.
--- OUTSIDE RECORDS SUMMARY | 2020-01-06 14:45 | XMS REPORT | CCD ---
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 Name Role Phone PP Unavailable CCM Unavailable Summary Purpose Interface Exchange Insurance Providers Payer name Policy type / Coverage type Covered green party ID Effective Begin Date Effective End Date WPS Medicare Part B Medicare Part B [id number] Unknown [employer] Better Health in [facility] Part B [id number] Unk nown Family history Father Diagnosis Age [...] employed [employer] 04/04/[address]: 348996960 Never smoker 04/04/[address]: 438979346 Never drinks alcohol 04/04/2015 Has the patient [...] 706.1 ICD-10: L70.0 Active 09/21/2018 Unknown Other alf (cur rent) drug therapy ICD-9: V58.69 ICD-10: [...] ICD-9: 706.1 ICD-10: L70.0 09/21/2018 Active 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 ICD-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 ICD-10: [...] Fill Instructions Farxiga 10 mg tablet RxNorm: 9504155 1 Tablet(s) PO daily 09/21/2018 01/18/[address] of invokana Farxiga 10 mg tablet RxNorm: 0773721 1 Tablet(s) PO daily 09/21/2018 09/20/[address] invokana cyanocobalamin (vit B-12) 1,000 mcg/mL injection solution RxNorm: 555762 Milliliter(s) Inj 09/13/2018 09/13/2018 Inactive cyanocobalamin (vit B-12) 1,000 mcg/mL injection solution RxNorm: 718602 Milliliter(s) Inj 08/11/2018 08/11/2018 Inactive naproxen 500 mg tablet RxNorm: 109088 TAKE 1 TABLET BY MOUTH TWICE DAILY 08/09/2018 11/06/2018 Ac tive Generic For:NAPROSYN 500MG 08/09/2018 1 1:14:27 AM N O T I C E Last quantity doesn't match original quantity levothyroxine 200 mc g tablet RxNorm: 756070 1 Tablet(s) PO daily to take with the 50mcg daily to equal 250mcg daily 07/19/2018 04/14/2019 Active cyanocobalamin (vit B-12) 1,000 mcg/mL injection solution RxNorm: 610653 Milliliter(s) Inj 06/29/2018 06/29/2018 Inactive naproxen 500 mg tablet RxNorm: 845543 TAKE 1 TABLET BY MOUTH TWICE DAILY 05/19/2018 08/08/2018 In active Generic For:NAPROSYN 500MG 05/19/2018 1 0:56:16 AM N O T I C E Last quantity doesn't match original quantity Kenalog 40 mg/mL [facility] for injection RxNorm: 1550666 Milliliter(s) Inj 03/23/2018 03/23/2018 In active levothyroxine 50 mcg tablet RxNorm: 629833 TAKE 1 TABLET BY MOUT H ONCE DAILY WITH 200MCG (250MCG TOTAL) 03/11/2018 06/08/2018 Inactive Generic For:SYNTHROID 50MCG TAB 03/11/2018 9:09:32 AM naproxen 500 mg tablet RxNorm: 274708 TAKE 1 TABLET BY MOUTH TWICE DAILY 02/25/2018 05/18/2018 In active Generic For:NAPROSYN 500MG 02/25/2018 1 2:39:53 PM N O T I C E Last quantity doesn't match original quantity cyanocobalamin (vit B-12) 1,000 mcg/mL injection solution RxNorm: 654621 Milliliter(s) Inj 02/07/2018 02/07/2018 Inactive metformin 1,000 mg t ablet RxNorm: 140153 TAKE 1 TABLET BY MOUT H TWICE A DAY 01/19/2018 01/13/2019 Ac tive Generic For:*GLUCOPHAGE 1000MG 01/20/20 10:20:50 AM cyanocobalamin (vit B-12) 1,000 mcg/mL injection solution RxNorm: 500825 Milliliter(s) Inj 01/13/2018 01/13/2018 Inactive cyanocobalamin (vit B-12) 1,000 mcg/mL injection solution RxNorm: 122146 Milliliter(s) Inj 12/06/2017 12/06/2017 Inactive Lipitor 40 mg tablet RxNorm: 464094 TAKE 1 TABLET BY MOUTH DAILY 11/08/2017 11/02/2018 Active Generic For:LIPITOR 40MG 11/05/2017 5:1 0:24 PM Invokana 300 mg tablet RxNorm: 7904317 TAKE 1 TABLET BY MOUTH DAILY 11/08/2017 09/20/2018 In active 11/05/2017 5:10:44 PM naproxen 500 mg tablet RxNorm: 069439 TAKE 1 TABLET BY MOUTH TWICE DAILY 11/08/2017 02/05/2018 In active Generic For:NAPROSYN 500MG 11/08/2017 9 :14:56 AM N O T I C E Last quantity doesn't match original quantity levothyroxine 50 mcg tablet RxNorm: 520072 1 Tablet(s) PO daily to take with the 200mcg daily to equal 250mcg daily 11/08/2017 02/05/2018 Inactive cyanocobalamin (vit B-12) 1,000 mcg/mL injection solution RxNorm: 129857 1 Milliliter(s) Inj 11/01/2017 11/01/2017 Inactive cyanocobalamin (vit B-12) 1,000 mcg/mL injection solution RxNorm: 493245 1 Milliliter(s) Inj 09/28/2017 09/28/2017 Inactive levothyroxine 200 mc g tablet RxNorm: 363996 1 Tablet(s) PO daily to take with the 50mcg daily to equal 250mcg daily 09/14/2017 06/10/2018 Inactive levothyroxine 50 mcg tablet RxNorm: 931075 1 Tablet(s) PO daily to take with the 200mcg daily to equal 250mcg daily 09/14/2017 11/07/2017 Inactive naproxen 500 mg tablet RxNorm: 626330 TAKE 1 TABLET BY MOUTH TWICE DAILY 08/05/2017 11/02/2017 In active Generic For:NAPROSYN 500MG 08/05/2017 9 :04:47 AM N O T I C E Last quantity doesn't match original quantity naproxen 500 mg tablet RxNorm: 946559 TAKE 1 TABLET BY MOUTH TWICE DAILY 04/19/2017 08/04/2017 In active Generic For:NAPROSYN 500MG 04/19/2017 1 :49:28 PM Lipitor 40 mg tablet RxNorm: 520802 TAKE 1 TABLET BY MOUTH DAILY 03/22/2017 11/07/2017 Inactive Generic For:LIPITOR 40MG 03/20/2017 9:0 5:49 AM levothyroxine 25 mcg tablet RxNorm: 971866 1 Tablet(s) PO daily to take with her 200mcg to equal 225 mcg daily 03/22/2017 04/08/2017 Inactive Invokana 300 mg tablet RxNorm: 2615336 TAKE 1 TABLET BY MOUTH DAILY 12/21/2016 09/16/2017 In active 12/21/2016 9:03:03 AM levothyroxine 200 mc g tablet RxNorm: 630799 1 Tablet(s) PO daily 12/21/2016 09/13/2017 Inactive metformin 1,000 mg t ablet RxNorm: 295297 TAKE 1 TABLET BY MOUT H TWICE A DAY 11/26/2016 11/20/2017 In active Generic For:*GLUCOPHAGE 1000MG 11/27/19 1:05:15 PM naproxen 500 mg tablet RxNorm: 175250 1 Tablet(s) PO BID 10/21/2016 04/18/2017 Inactive levothyroxine 25 mcg tablet RxNorm: 724959 1 Tablet(s) PO daily to take with her 200mcg to equal 225 mcg daily 10/13/2016 01/10/2017 Inactive levothyroxine 50 mcg tablet RxNorm: 252913 1 Tablet(s) PO daily 09/21/2016 10/12/2016 Inactive Invokana 300 mg tablet RxNorm: 9241034 1 Tablet(s) PO daily 09/21/2016 12/19/2016 Inactive metformin 1,000 mg t ablet RxNorm: 861433 TAKE 1 TABLET BY MOUT H TWICE A DAY 09/21/2016 11/25/2016 In active Generic For:*GLUCOPHAGE 1000MG 09/22/19 17 8:53:30 AM levothyroxine 200 mc g tablet RxNorm: 315851 1 Tablet(s) PO daily 09/21/2016 12/19/2016 Inactive Lipitor 40 mg tablet RxNorm: 304661 TAKE 1 TABLET BY MOUTH DAILY 06/23/2016 03/19/2017 Inactive Generic For:LIPITOR 40MG 06/23/2016 9:1 2:42 AM levothyroxine 50 mcg tablet RxNorm: 891659 1 Tablet(s) PO daily TAKE 1 TABLET BY MOUTH DAILY 06/23/2016 09/20/2016 Inactive Generic For:SYNTHROID 50MCG TAB 06/23/2016 9:22:58 AM metformin 1,000 mg t ablet RxNorm: 383984 TAKE 1 TABLET BY MOUT H TWICE A DAY 06/23/2016 09/20/2016 In active Generic For:*GLUCOPHAGE 1000MG 06/23/19 17 9:12:46 AM levothyroxine 200 mc g tablet RxNorm: 021527 1 Tablet(s) PO daily 04/24/2016 08/21/2016 Inactive naproxen 500 mg tablet RxNorm: 130414 1 Tablet(s) PO BID 03/26/2016 10/20/2016 Inactive levothyroxine 50 mcg tablet RxNorm: 598353 1 Tablet(s) PO daily 03/25/2016 06/23/2016 Inactive Flonase Allergy Reli ef 50 mcg/actuation nasal spray,suspension RxNorm: 5166025 1 [place] NASAL BID 01/14/2016 No Stop Date Active prednisone 20 mg tablet RxNorm: 886218 2 Tablet(s) PO daily 01/14/2016 01/16/2016 Inactive Zithromax Z-Michael 250 mg tablet RxNorm: 462807 Tablet(s) PO 01/14/2016 02/25/2016 Inactive levothyroxine 200 mc g tablet RxNorm: 170001 1 Tablet(s) PO daily 11/25/2015 03/23/2016 Inactive levothyroxine 50 mcg tablet RxNorm: 234346 1 Tablet(s) PO daily 11/25/2015 03/23/2016 Inactive Invokana 300 mg tablet RxNorm: 1682506 1 Tablet(s) PO daily 11/25/2015 09/20/2016 Inactive metformin 1,000 mg t ablet RxNorm: 050741 TAKE 1 TABLET BY MOUT H TWICE A DAY 08/22/2015 05/17/2016 In active Generic For:*GLUCOPHAGE 1000MG N O T I C E PRESCRIPTION PREVIOUSLY AUTHORIZED BY DOCTOR:PEDRO SIMPSON levothyroxine 200 mc g tablet RxNorm: 979753 1 Tablet(s) PO daily 08/02/2015 11/24/2015 Inactive levothyroxine 25 mcg tablet RxNorm: 802141 1 Tablet(s) PO daily 08/02/2015 11/24/2015 Inactive levothyroxine 25 mcg tablet RxNorm: 945650 1 Tablet(s) PO daily 08/02/2015 08/01/2015 Inactive Zithromax Z-Michael 250 mg tablet RxNorm: 612605 Tablet(s) PO 07/31/2015 10/27/2015 Inactive naproxen 500 mg tablet RxNorm: 010454 1 Tablet(s) PO BID 07/31/2015 02/25/2016 Inactive Lipitor 40 mg tablet RxNorm: 926617 TAKE 1 TABLET BY MOUTH DAILY 05/26/2015 05/19/2016 Inactive Generic For:LIPITOR 40MG 05/25/2015 10: 36:19 AM levothyroxine 200 mc g tablet RxNorm: 521845 TAKE 1 TABLET ONCE DA SUKUMAR WITH 50MCG TABLET TO MAKE 250MCG. 05/26/2015 07/30/2015 Inactive Generic For:SYNTHROID 200MC G TAB 05/25/2015 10:36:11 AM Invokana 100 mg tablet RxNorm: 4017519 1 Tablet(s) PO daily 03/15/2015 03/14/2015 Inactive Invokana 100 mg tablet RxNorm: 8476425 1 Tablet(s) PO daily 03/15/2015 11/24/2015 Inactive naproxen 500 mg tablet RxNorm: 582442 1 Tablet(s) PO BID 03/13/2015 07/30/2015 Inactive metformin 1,000 mg t ablet RxNorm: 573252 1 Tablet(s) PO BID 03/13/2015 08/21/2015 Inactive levothyroxine 200 mc g tablet RxNorm: 884735 TAKE 1 TABLET ONCE DA SUKUMAR WITH 50MCG TABLET TO MAKE 250MCG. 02/12/2015 05/12/2015 Inactive Generic For:SYNTHROID 200MC G TAB 02/12/2015 11:50:50 AM Lipitor 40 mg tablet RxNorm: 491863 TAKE 1 TABLET BY MOUTH DAILY 02/12/2015 05/12/2015 Inactive Generic For:LIPITOR 40MG 02/12/2015 11: 50:55 AM levothyroxine 200 mc g tablet RxNorm: 613019 1 Tablet(s) PO daily 11/19/2014 02/11/2015 Inactive levothyroxine 200 mc g tablet RxNorm: 300897 1 Tablet(s) PO daily 11/19/2014 11/18/2014 Inactive Lipitor 40 mg tablet RxNorm: 410222 1 Tablet(s) PO daily call and make appt. 11/19/2014 02/11/2015 In active Lipitor 40 mg tablet RxNorm: 343943 1 Tablet(s) PO daily call and make appt. 11/15/2014 11/18/2014 In active Lipitor 40 mg tablet RxNorm: 791042 1 Tablet(s) PO daily call and make appt. 11/15/2014 11/14/2014 In active [place] with Iro n oral RxNorm: oral No Start D ate Active Vitamin B-12 1,000 m cg/mL injection solution RxNorm: 222165 1 Milliliter(s) Inj m onthly No Start Date Active levothyroxine 200 mc g tablet RxNorm: 205220 1 Tablet(s) PO daily No Start Date 08/01/2015 Inactive Medication Administered Medication Codes Instruc tions Start Date Status cyanocobalamin (vit B-12) 1,000 mcg/mL injection solut ion RxNorm: 183276 Milliliter 09/13/2018 No longer Active cyanocobalamin (vit B-12) 1,000 mcg/mL injection solut ion RxNorm: 665464 Milliliter 08/11/2018 No longer Active cyanocobalamin (vit B-12) 1,000 mcg/mL injection solut ion RxNorm: 968057 Milliliter 06/29/2018 No longer Active Kenalog 40 mg/mL suspension for injection RxNorm: 9028238 Milliliter 03/23/2018 No longer Active cyanocobalamin (vit B-12) 1,000 mcg/mL injection solut ion RxNorm: 390672 Milliliter 02/07/2018 No longer Active cyanocobalamin (vit B-12) 1,000 mcg/mL injection solut ion RxNorm: 157868 Milliliter 01/13/2018 No longer Active cyanocobalamin (vit B-12) 1,000 mcg/mL injection solut ion RxNorm: 655065 Milliliter 12/06/2017 No longer Active cyanocobalamin (vit B-12) 1,000 mcg/mL injection solut ion RxNorm: 792413 1Milliliter 11/01/2017 No longer Active cyanocobalamin (vit B-12) 1,000 mcg/mL injection solut ion RxNorm: 178370 1Milliliter 09/28/2017 No longer Active Immunizations Vaccine [...] ICD- 10: D50.0 ICD-9: 280.0 09/27/2017 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 ICD-10: Z79.899 ICD-9: V58.69 [...] Item Item Code Result Date Free T4 Iuu227 FREE T4 1.22 ng/dL 09/20/2018 Cbc With [...] 25.0 pg 09/20/2018 Cbc With Differential Ord2 Cavalier% 8.1 % 09/20/2018 Cbc With Differential Ord2 [...] 1.73 K/ul 09/20/2018 Cbc With Differential Ord2 [place]al[place] ABS# 0.8 K/ul 09/20/2018 Cbc With Differential Ord2 Eos ABS# 0.4 K/ul 09/20/2018 Cbc With Differential Ord2 Baso ABS# 0.1 K/ul 09/20/2018 Lipid Ord30 CHOL 176 mg/dL 09/20/2018 Lipid Ord30 HDL 55.0 mg/dl 09/20/2018 Lipid Ord30 TRIG 133 mg/dL 09/20/2018 Lipid Ord30 LDL 94 mg/dL 09/20/2018 Lipid Ord30 C/HDL 3.2 Ratio 09/20/2018 Comp Metabolic Xod858 NA 140 mEq/L 09/20/2018 Comp Metabolic Cag866 K 4.4 mEq/L 09/20/2018 Comp Metabolic Hps542 CL 104 mEq/L 09/20/2018 Comp Metabolic Orv477 CO2 27.0 mEq/L 09/20/2018 Comp Metabolic Ssx394 AN ION GAP 13 09/20/2018 Comp Metabolic Lnt951 GL UCOSE 104 mg/dL 09/20/2018 Comp Metabolic Man284 Cr eat 0.6 mg/dL 09/20/2018 Comp Metabolic Xyv567 eG FR 112 ml/min/1.73m2 07/2018 Comp Metabolic Rbb650 BUN 18 mg/dL 09/20/2018 Comp Metabolic Rxm342 B/ C Ratio 29.5 Ratio 09/20/2018 Comp Metabolic Dop725 CA LCIUM 9.4 mg/dL 09/20/2018 Comp Metabolic Hpc116 AL K PHOS 97 U/L 09/20/2018 Comp Metabolic Avd916 T(SGOT) 13 U/L 09/20/2018 Comp Metabolic Ioh285 AL T(SGPT) 16 U/L 09/20/2018 Comp Metabolic Abb578 BI LI T 0.2 mg/dL 09/20/2018 Comp Metabolic Dyf259 AL BUMIN 4.0 g/dL 09/20/2018 Comp Metabolic Uaa217 TP RO 7.0 g/dL 09/20/2018 Comp Metabolic Iuk194 GL OB 3.0 g/dL 09/20/2018 Comp Metabolic Rpt530 A/ G Ratio 1.4 Ratio 09/20/2018 Comp Metabolic Ynr839 Os mo 282 mOsmo 09/20/2018 %Hba1C Xue270 % HbA1c 81332-7 6.6 % 09/20/2018 %Hba1C Esw233 Gluc Ave 143 mg/dL 09/20/2018 Tsh Ord6 TSH (3rd IS) 1.85 uIU/mL 09/20/2018 Hgb & Hct Ord65 HGB 9.7 g/dl 10/06/2017 Hgb & Hct Ord65 HCT 33.5 % 10/06/2017 Hgb & Hct Ord65 HGB 8.6 g/dl 09/24/2017 Hgb & Hct Ord65 HCT 30.4 % 09/24/2017 B12 Uyq790 B12 124.00 pg/ml 09/15/2017 Cbc With Differential [...] 20.0 pg 09/15/2017 Cbc With Differential Ord2 Cavalier% 7.7 % 09/15/2017 Cbc With Differential Ord2 [...] 1.94 K/ul 09/15/2017 Cbc With Differential Ord2 [place] ABS# 0.8 K/ul 09/15/2017 Cbc With Differential Ord2 Eos ABS# 0.5 K/ul 09/15/2017 Cbc With Differential Ord2 Baso ABS# 0.1 K/ul 09/15/2017 Tibc Ord40 Iron 21 ug/dl 09/15/2017 Tibc Ord40 UIBC 432 ug/dL 09/15/2017 Tibc Ord40 TIBC 453 ug/dL 09/15/2017 Tibc Ord40 Fe-%Sat 4.6 % 09/15/2017 Folate Ord36 Folate 15.31 ng/mL 09/15/2017 Ferritin Ord22 FERRITIN 4.3 ng/mL 09/15/2017 Free T4 Yie590 FREE T4 0.88 ng/dL 09/10/2017 %Hba1C Lss887 % HbA1c 36261-4 6.7 % 09/10/2017 %Hba1C Xma947 Gluc Ave 146 mg/dL 09/10/2017 Cbc With [...] 20.5 pg 09/10/2017 Cbc With Differential Ord2 [place]% 8.0 % 09/10/2017 Cbc With Differential Ord2 [...] 2.10 K/ul 09/10/2017 Cbc With Differential Ord2 [place] ABS# 0.7 K/ul 09/10/2017 Cbc With Differential Ord2 Eos ABS# 0.5 K/ul 09/10/2017 Cbc With Differential Ord2 Baso ABS# 0.0 K/ul 09/10/2017 Comp Metabolic Vus212 NA 139 mEq/L 09/10/2017 Comp Metabolic Bpy211 K 4.6 mEq/L 09/10/2017 Comp Metabolic Umh663 CL 103 mEq/L 09/10/2017 Comp Metabolic Kvk043 CO2 28.0 mEq/L 09/10/2017 Comp Metabolic Qgt064 AN ION GAP 13 09/10/2017 Comp Metabolic Ckj614 GL UCOSE 91 mg/dL 09/10/2017 Comp Metabolic Lnu380 Cr eat 0.6 mg/dL 09/10/2017 Comp Metabolic Rxd110 eG FR 117 ml/min/1.73m2 08/20 Comp Metabolic Rub058 BUN 22 mg/dL 09/10/2017 Comp Metabolic Zlj294 B/ C Ratio 37.3 Ratio 09/10/2017 Comp Metabolic Kev295 CA LCIUM 9.6 mg/dL 09/10/2017 Comp Metabolic Ugm309 AL K PHOS 100 U/L 09/10/2017 Comp Metabolic Zej282 T(SGOT) 12 U/L 09/10/2017 Comp Metabolic Poi191 AL T(SGPT) 13 U/L 09/10/2017 Comp Metabolic Lts452 BI LI T 0.2 mg/dL 09/10/2017 Comp Metabolic Xkc034 AL BUMIN 3.9 g/dL 09/10/2017 Comp Metabolic Pve284 TP RO 7.0 g/dL 09/10/2017 Comp Metabolic Coa846 GL OB 3.1 g/dL 09/10/2017 Comp Metabolic Bmr561 A/ G Ratio 1.3 Ratio 09/10/2017 Comp Metabolic Ofd200 Os mo 280 mOsmo 09/10/2017 Tsh Ord6 TSH (3rd IS) 6.83 uIU/mL 09/10/2017 Free T4 Qpj918 FREE T4 1.53 ng/dL 04/07/2017 Tsh Ord6 hTSH II 0.55 uIU/mL 04/07/2017 Tsh Ord6 hTSH II 0.55 uIU/mL 12/30/2016 Free T4 Rma175 FREE T4 1.15 ng/dL 12/30/2016 %Hba1C Msu793 % HbA1c 87166-3 6.0 % 10/01/2016 %Hba1C Njs341 Gluc Ave 126 mg/dL 10/01/2016 Tsh Ord6 hTSH II 0.19 uIU/mL 10/01/2016 Comp Metabolic Qoz110 NA 139 mEq/L 10/01/2016 Comp Metabolic Xgx169 K 4.6 mEq/L 10/01/2016 Comp Metabolic Yzr406 CL 102 mEq/L 10/01/2016 Comp Metabolic Oln012 CO2 28.0 mEq/L 10/01/2016 Comp Metabolic Fql183 AN ION GAP 14 10/01/2016 Comp Metabolic Htv548 GL UCOSE 93 mg/dL 10/01/2016 Comp Metabolic Rqs992 Cr eat 0.6 mg/dL 10/01/2016 Comp Metabolic Fhe900 eG FR 109 ml/min/1.73m2 09/19 Comp Metabolic Ogp218 BUN 20 mg/dL 10/01/2016 Comp Metabolic Zns708 B/ C Ratio 31.7 Ratio 10/01/2016 Comp Metabolic Lvs277 CA LCIUM 9.8 mg/dL 10/01/2016 Comp Metabolic Tvv955 AL K PHOS 114 U/L 10/01/2016 Comp Metabolic Qpm383 T(SGOT) 11 U/L 10/01/2016 Comp Metabolic Hjs711 AL T(SGPT) 12 U/L 10/01/2016 Comp Metabolic Egu375 BI LI T 0.4 mg/dL 10/01/2016 Comp Metabolic Zwa451 AL BUMIN 4.3 g/dL 10/01/2016 Comp Metabolic Vou035 TP RO 7.2 g/dL 10/01/2016 Comp Metabolic Fso555 GL OB 2.9 g/dL 10/01/2016 Comp Metabolic Moi302 A/ G Ratio 1.5 Ratio 10/01/2016 Comp Metabolic Nmi609 Os mo 280 mOsmo 10/01/2016 Free T4 Zyi921 FREE T4 1.37 ng/dL 10/01/2016 Lipid Ord30 [...] 27.9 pg 10/01/2016 Cbc With Differential Ord2 [place]alier% 8.5 % 10/01/2016 Cbc With Differential Ord2 [...] 1.69 K/ul 10/01/2016 Cbc With Differential Ord2 [place] ABS# 0.7 K/ul 10/01/2016 Cbc With Differential [...] 22.7 pg 04/06/2016 Cbc With Differential Ord2 [place]al[place]% 8.2 % 04/06/2016 Cbc With Differential Ord2 [...] 1.48 K/ul 04/06/2016 Cbc With Differential Ord2 [place] ABS# 0.5 K/ul 04/06/2016 Cbc With Differential Ord2 Eos ABS# 0.4 K/ul 04/06/2016 Cbc With Differential Ord2 Baso ABS# 0.0 K/ul 04/06/2016 Ferritin Ord22 FERRITIN 5.8 ng/mL 04/06/2016 Free T4 Xxg998 FREE T4 1.16 ng/dL 03/16/2016 %Hba1C Dda596 % HbA1c 58890-2 7.0 % 03/16/2016 %Hba1C Yuh581 Gluc Ave 154 mg/dL 03/16/2016 Cbc With [...] 23.2 pg 03/16/2016 Cbc With Differential Ord2 [place]% 4.8 % 03/16/2016 Cbc With Differential Ord2 [...] 1.75 K/ul 03/16/2016 Cbc With Differential Ord2 [place] ABS# 0.6 K/ul 03/16/2016 Cbc With Differential Ord2 Eos ABS# 0.4 K/ul 03/16/2016 Cbc With Differential Ord2 Baso ABS# 0.0 K/ul 03/16/2016 Tsh Ord6 hTSH II 1.39 uIU/mL 03/16/2016 Tsh Ord6 hTSH II 10.28 uIU/mL 11/14/2015 Free T4 Sma072 FREE T4 0.79 ng/dL 11/14/2015 Lipid Ord30 [...] 24.4 pg 11/14/2015 Cbc With Differential Ord2 [place]% 6.6 % 11/14/2015 Cbc With Differential Ord2 [...] 1.72 K/ul 11/14/2015 Cbc With Differential Ord2 [place] ABS# 0.8 K/ul 11/14/2015 Cbc With Differential Ord2 Eos ABS# 0.4 K/ul 11/14/2015 Cbc With Differential Ord2 Baso ABS# 0.0 K/ul 11/14/2015 Comp Metabolic Bgt878 NA 136 mEq/L 11/14/2015 Comp Metabolic Rba439 K 4.4 mEq/L 11/14/2015 Comp Metabolic Zyw607 CL 101 mEq/L 11/14/2015 Comp Metabolic Esn105 CO2 27.0 mEq/L 11/14/2015 Comp Metabolic Fwo567 AN ION GAP 12 11/14/2015 Comp Metabolic Mtc811 GL UCOSE 107 mg/dL 11/14/2015 Comp Metabolic Taw484 Cr eat 0.6 mg/dL 11/14/2015 Comp Metabolic Php157 eG FR 125 ml/min/1.73m2 10/20 Comp Metabolic Mcc053 BUN 14 mg/dL 11/14/2015 Comp Metabolic Oss182 B/ C Ratio 25.0 Ratio 11/14/2015 Comp Metabolic Vid039 CA LCIUM 9.6 mg/dL 11/14/2015 Comp Metabolic Dsa623 AL K PHOS 104 U/L 11/14/2015 Comp Metabolic Qgc756 T(SGOT) 16 U/L 11/14/2015 Comp Metabolic Okl071 AL T(SGPT) 14 U/L 11/14/2015 Comp Metabolic Bwn266 BI LI T 0.3 mg/dL 11/14/2015 Comp Metabolic Dop314 AL BUMIN 4.0 g/dL 11/14/2015 Comp Metabolic Pyi297 TP RO 7.2 g/dL 11/14/2015 Comp Metabolic Fqa945 GL OB 3.2 g/dL 11/14/2015 Comp Metabolic Osu073 A/ G Ratio 1.3 Ratio 11/14/2015 Comp Metabolic Dov436 Os mo 273 mOsmo 11/14/2015 %Hba1C Gcb941 % HbA1c 35688-8 7.0 % 11/14/2015 %Hba1C Kcz459 Gluc Ave 154 mg/dL 11/14/2015 Free T4 Cqs204 FREE T4 0.49 ng/dL 08/02/2015 Tsh Ord6 hTSH II 44.41 uIU/mL 07/31/2015 %Hba1C Bgr281 % HbA1c 49136-5 6.7 % 07/31/2015 %Hba1C Ver808 Gluc Ave 146 mg/dL 07/31/2015 Cbc With [...] Differential Ord2 RDW 14.9 % 03/13/2015 %Hba1C Kid605 % HbA1c 93977-9 6.8 % 03/13/2015 %Hba1C Bjv373 Gluc Ave 148 mg/dL 03/13/2015 Tsh Ord6 hTSH II 0.95 uIU/mL 03/13/2015 Lipid Ord30 CHOL 146 mg/dL 03/13/2015 Lipid Ord30 HDL 40.0 mg/dl 03/13/2015 Lipid Ord30 TRIG 137 mg/dL 03/13/2015 Lipid Ord30 LDL 79 mg/dL 03/13/2015 Lipid Ord30 C/HDL 3.7 Ratio 03/13/2015 Comp Metabolic Aig285 NA 135 mEq/L 03/13/2015 Comp Metabolic Wrw699 K 4.5 mEq/L 03/13/2015 Comp Metabolic Mwe972 CL 99 mEq/L 03/13/2015 Comp Metabolic Pcf453 CO2 29.0 mEq/L 03/13/2015 Comp Metabolic Yuo749 AN ION GAP 12 03/13/2015 Comp Metabolic Maw688 GL UCOSE 98 mg/dL 03/13/2015 Comp Metabolic Whb269 Cr eat 0.7 mg/dL 03/13/2015 Comp Metabolic Bnq230 eG FR 100 ml/min/1.73m2 02/20 Comp Metabolic Ctd043 BUN 13 mg/dL 03/13/2015 Comp Metabolic Lxm169 B/ C Ratio 19.1 Ratio 03/13/2015 Comp Metabolic Osm595 CA LCIUM 9.8 mg/dL 03/13/2015 Comp Metabolic Dtm857 AL K PHOS 91 U/L 03/13/2015 Comp Metabolic Zxk166 T(SGOT) 10 U/L 03/13/2015 Comp Metabolic Kpu076 AL T(SGPT) 10 U/L 03/13/2015 Comp Metabolic Ztn929 BI LI T 0.4 mg/dL 03/13/2015 Comp Metabolic Uwb996 AL BUMIN 4.1 g/dL 03/13/2015 Comp Metabolic Ebz809 TP RO 6.9 g/dL 03/13/2015 Comp Metabolic Qpn722 GL OB 2.8 g/dL 03/13/2015 Comp Metabolic Hys499 A/ G Ratio 1.5 Ratio 03/13/2015 Comp Metabolic Gow828 Os mo 270 mOsmo 03/13/2015 Free T4 Akl217 FREE T4 1.25 ng/dL 03/13/2015 Review of [...] Procedure Codes Date THER/PROPH/DIAG INJ SC/IM CPT-4: 49955 09/13/2018 VITAMIN B12 INJECTION CPT-4: J3420 09/13/2018 THER/PROPH/DIAG INJ SC/IM CPT-4: 52204 08/11/2018 VITAMIN B12 INJECTION CPT-4: J3420 08/11/2018 THER/PROPH/DIAG INJ SC/IM CPT-4: 98063 06/29/2018 THER/PROPH/DIAG INJ SC/IM CPT-4: 46352 03/23/2018 VITAMIN B12 INJECTION CPT-4: J3420 03/23/2018 THER/PROPH/DIAG INJ SC/IM CPT-4: 56724 02/07/2018 VITAMIN B12 INJECTION CPT-4: J3420 02/07/2018 THER/PROPH/DIAG INJ SC/IM CPT-4: 98455 01/13/2018 VITAMIN B12 INJECTION CPT-4: J3420 01/13/2018 VITAMIN B12 INJECTION CPT-4: J3420 12/06/2017 THER/PROPH/DIAG INJ SC/IM CPT-4: 39065 12/06/2017 THER/PROPH/DIAG INJ SC/IM CPT-4: 38439 11/01/2017 VITAMIN B12 INJECTION CPT-4: J3420 11/01/2017 THER/PROPH/DIAG INJ SC/IM CPT-4: 23522 09/28/2017 VITAMIN B12 INJECTION CPT-4: J3420 09/28/2017 Vital Signs Date Vital 09/21/2018 Blood Pressure 1: 122/74 Code: 8480-6 BMI: 45.5 Code: 73806-0 Heart Rate 1: 79 bpm Height: 5'3" SpO2: 98% Temperature: 36.9 (C ) / 98.5 (F) Weight: 257 lbs 11/01/2017 Heigh t: 5'3" 09/10/2017 Blood Pressure 1: 136/70 Code: 8480-6 BMI: 44.6 Code: 67555-3 Heart Rate 1: 91 bpm Height: 5'3" SpO2: 96% Weight: 252 lbs 10/13/2016 Blood Pressure 1: 134/82 Code: 8480-6 BMI: 43.6 Code: 22087-9 Heart Rate 1: 97 bpm Height: 5'3" SpO2: 97% Weight: 246 lbs 01/14/2016 Blood Pressure 1: 132/78 Code: 8480-6 BMI: 45.7 Code: 95101-5 Heart Rate 1: 90 bpm Height: 5'3" SpO2: 98% Weight: 258 lbs 07/31/2015 Blood Pressure 1: 142/80 Code: 8480-6 BMI: 45.7 Code: 05136-8 Heart Rate 1: 78 bpm Height: 5'3" SpO2: 96% Weight: 258 lbs 04/04/2015 Blood Pressure 1: 130/82 Code: 8480-6 BMI: 44.9 Code: 94131-7 Heart Rate 1: 90 bpm Height: 5'3" SpO2: 96% Weight: 253 lbs 5 oz 03/13/2015 Blood Pressure 1: 140/86 Code: 8480-6 BMI: 45.2 Code: 13155-1 Heart Rate 1: 87 bpm Height: 5'3" [...] of the thyroid 09/10/2017 None 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 PATIENT, LEVEL IV Diagnosis: Acne vulgaris[ICD10: L70.0] Diagnosis: Type 2 diabetes mellitus with hyperglycemia[ICD10: E11.65] Diagnosis: Other specified hypothyroidism[ICD10: E03.8] Anyi Cano MD, [facility] CPT-4: 49188 09/21/2018 [id number] EST. 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 PATIENT, LEVEL IV Diagnosis: Other acute sinusitis[ICD10: J01.80] Diagnosis: Other allergic rhinitis[ICD10: J30.89] Diagnosis: Wheezing[ICD10: R06.2] Anyi Cano MD, [facility] CPT-4: 71097 01/14/2016 44215 EST. 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 P ATIENT, LEVEL III Diagnosis: Achilles tendinitis, left leg[ICD10: M76.62] Beba Cano MD, [facility] CPT-4: 43621 04/04/2015 ([id number]) OFFICE VISI T, NEW - LEVEL 4 Diagnosis: HYPERLIPIDEMIA[ICD9: 272.4] Diagnosis: DIABETES TYPE II[ICD9: 250.00] Diagnosis: HYPOTHYROIDISM[ICD9: 244.9] Diagnosis: ACHILLES TENDINITIS[ICD9: 726.71] Beba Cano MD, [facility] CPT-4: 51731 03/13/2015 Plan of Care Planned Activity Notes [...] control. 09/21/2018 Appointment: Anyi Velázquez [facility]: [phone] [facility] [place] ([place]) [facility] 09/21/2018 Patient Education: Patient Medication Summary Completed 09/21/2018 Patient Education: Patient Medication Summary Completed 09/19/2018 Appointment: Injection 09/13/2018 Patient Education: Patient Medication Summary Completed 09/13/2018 Appointment: Injection 08/11/2018 Patient Education: Patient Medication Summary Completed 08/11/2018 Appointment: Injection 06/29/2018 Patient Education: Patient Medication Summary Completed 06/29/2018 Patient Education: Patient Medication Summary Completed 04/05/2018 Care Plan: [facility] : [id number] Pending 04/05/2018 Appointment: Injection 03/23/2018 Patient Education: Patient Medication Summary Completed 03/23/2018 Appointment: Injection 02/07/2018 Patient Education: Patient Medication Summary Completed 02/07/2018 Appointment: Injection 01/13/2018 Patient Education: Patient Medication Summary Completed 01/13/2018 Patient Education: Patient Medication Summary Completed 01/12/2018 Care Plan: [facility] : [id number] Pending 01/12/2018 Appointment: Injection 12/06/2017 Patient Education: [...] 09/14/2017 Care Plan: Referral Order SNOMED-CT : [id number] Pending 09/13/2017 Visit Plan: Diabetes Mellitus - [...] or pap done - will refer to [facility] due to pt symptoms and difficulty for exam - pt is to notify clinic with any changes or concerns. 09/10/2017 Appointment: Anyi Velázquez [facility]el: [phone] [facility] [place] (15 min) Moderate 09/10/2017 Patient Education: Patient Medication Summary Completed 09/10/2017 Referral: Arvind Briseno [address] [facility] Referral Completed 10/27/2016 Referral: Arvind Briseno [facility] Referral Initiated 10/27/2016 Visit Plan: Umbilical [...] control. 10/13/2016 Appointment: Anyi Velázquez [facility]el: [phone] [facility] [phone] (15 min) Moderate 10/13/2016 Patient Education: Patient Medication Summary Completed 10/13/2016 Care Plan: Referral Order SNOMED-CT : [id number] Pending 10/13/2016 Visit Plan: Sinusitis - Pt [...] allergy spray. 01/14/2016 Appointment: Melissa Newman WPtel: [phone] (30 min) Complex 01/14/2016 Patient Education: [...] not improving. 04/04/2015 Appointment: [phone] ([facility]) Moderate 04/04/2015 Patient Education: Patient [...] that appt. 03/13/2015 Appointment: [phone] [place] New Patient 03/13/2015 Patient Education: Patient Medication Summary Completed 03/13/2015 Patient Education: Hypertension Completed 03/13/2015 Patient Education: Patient Medication Summary Completed 10/24/2014 Referral: Katia Hunter WPtel: [address] [place] [address] they will call pt to schedule appt Initiated Referral: Katia Hunter WPtel: [phone] [place] [address] Referral Initiated Referral: Dario Brisenoa [address] [place] [address] Referral Initiated Instructions Comment . Sinusitis - [...] or pap done - will refer to [employer]IST[employer] TE[facility]ER due to pt symptoms and difficulty for [...]
--- NOTE | 2020-01-06 14:46 | ED Lower Extremity ---
General Chief Complaint: Lower Extremity Stated Complaint: KNEE PAIN Source: patient, family Exam Limitations: no limitations History of Present Illness Date Seen by Provider: Jan 06, 2020 Time Seen by Provider: 14:44 Initial Comments Mentally handicap presents to ER by mother with reports of abrasions to both knees after a fall 2 weeks ago. She then fell again yesterday and awakened this morning with significant swelling to the right knee. Onset: yesterday Severity: moderate Pain/Injury Location: right knee Method of Injury: fell Modifying Factors: Improves With Movement Allergies and Home Medications Allergies Coded Allergies: No Known Drug Allergies (Unverified , 10/29/16) Home Medications Acetaminophen 500 Mg Tablet, 500 MG PO PRN, (Reported) Atorvastatin Calcium 40 Mg Tablet, 40 MG PO DAILY, (Reported) Canagliflozin 300 Mg Tablet, 300 MG PO DAILY, (Reported) Cyanocobalamin (Vitamin B-12) 2,500 Mcg Tablet, 2,500 MCG PO DAILY, (Reported) Ibuprofen 600 Mg Tablet, 600 MG PO Q6H Prescribed by: KALIA COSTA on 01/11/18 0950 Levothyroxine Sodium 200 Mcg Tablet, 200 MCG PO DAILY, (Reported) Loratadine 10 Mg Tablet, 10 MG PO DAILY, (Reported) Metformin HCl 1,000 Mg Tablet, 1,000 MG PO BID, (Reported) Naproxen 500 Mg Tablet, 500 MG PO BID, (Reported) Patient Home Medication List Home Medication List Reviewed: Yes Review of Systems Constitutional: see HPI EENTM: see HPI Respiratory: no symptoms reported Cardiovascular: no symptoms reported Genitourinary: no symptoms reported Musculoskeletal: see HPI Skin: no symptoms reported Psychiatric/Neurological: No Symptoms Reported Past Lqykbey-Pyplzd-Hswdes Hx Patient Social History Alcohol Use: Denies Use Recreational Drug Use: No Smoking Status: Never a Smoker Recent Hopitalizations: No Physical Abuse: No Sexual Abuse: No Mistreated: No Fear: No Immunizations Up To Date Tetanus Booster (TDap): Unknown Seasonal Allergies Seasonal Allergies: Yes Past Medical History Surgeries: Yes (RIGHT ANKLE, HERNIA) Orthopedic Respiratory: No Currently Using CPAP: No Currently Using BIPAP: No Cardiac: Yes High Cholesterol Neurological: Yes (MENTALLY HANDICAPPED) Reproductive Disorders: Yes (POST MENOPAUSAL BLEEDING) Female Reproductive Disorders: Denies Sexually Transmitted Disease: No HIV/AIDS: No Gastrointestinal: No Musculoskeletal: Yes (RIGHT ANKLE) Arthritis Endocrine: Yes Hypothyroidsim Loss of Vision: Bilateral Hearing Impairment: Denies Cancer: No Psychosocial: No Integumentary: No Blood Disorders: Yes (ANEMIA) Adverse Reaction/Blood Tranf: No (HAS HAD BLOOD WITH NO REACTION) Physical Exam Vital Signs Vital Signs - First Documented 01/06/20 14:26 Temp 36.8 Pulse 106 Resp 20 B/P (MAP) 149/93 (111) Pulse Ox 95 O2 Delivery Room Air Capillary Refill : Height, Weight, BMI Height: 5'3.00" Weight: 248lbs. 7.0oz. 112.458473si; 44.0 BMI Method: General Appearance: WD/WN, no apparent distress HEENT: PERRL/EOMI, normal ENT inspection Respiratory: normal breath sounds, no respiratory distress, no accessory muscle use Hips: bilateral hip non-tender, bilateral hip normal inspection, bilateral hip normal range of motion Legs: bilateral leg non-tender, bilateral leg normal inspection, bilateral leg normal range of motion Knees: bilateral knee normal range of motion, bilateral knee other (old abrasions overlying the patella bilaterally appear to be healing well without any cellulitis. Over the right knee there appears to be a prepatellar bursitis assumed to be traumatic in nature. There is no erythema however.) Ankles: bilateral ankle non-tender, bilateral ankle normal inspection, bilateral ankle normal range of motion Feet: bilateral foot non-tender, bilateral foot normal inspection, bilateral foot normal range of motion Neurologic/Psychiatric: alert, normal mood/affect, oriented x 3 Skin: normal color, warm/dry Progress/Results/Core Measures Results/Orders My Orders Orders - KRISTINA WASHINGTON APRN Knee, Right, 3 Views (01/06/20 14:37) Tibia/Fibula, Right, 2 Views (01/06/20 14:38) Vital Signs/I&O 01/06/20 14:26 Temp 36.8 Pulse 106 Resp 20 B/P (MAP) 149/93 (111) Pulse Ox 95 O2 Delivery Room Air Departure Communication (Admissions) I will put her in in a knee immobilizer, pain control and have her follow up with Dr. Whitlock next week. Impression Primary Impression: Patella fracture Qualified Codes: S82.041A - Displaced comminuted fracture of right patella, initial encounter for closed fracture Additional Impression: Post-menopausal bleeding Disposition: 01 HOME, SELF-CARE Condition: Stable Departure-Patient Inst. Decision time for Depature: 15:05 Referrals: SHAILESH YI MD (PCP/Family) Primary Care Physician FERNANDO WHITLOCK MD Patient Instructions: Patella Fracture Add. Discharge Instructions: 1. Keep the knee immobilizer on at all times except when showering. Pain medication as directed. Call Dr. Whitlock on Wednesday to make an appointment to be seen. Pain medication as directed. Return to ER for any concerns. All discharge instructions reviewed with patient and/or family. Voiced understanding. Copy Copies To 1: FERNANDO WHITLOCK MD, PETER J APRN Jan 06, 2020 14:46
--- OUTSIDE RECORDS SUMMARY | 2020-01-06 14:46 | XMS REPORT | CCD ---
Author Author Lucia Cano Organization Beba Cano MD, [facility] Address [address] [place] [address] Phone Care Team Providers Care Sample Worker Name Role Phone PP Unavailable CCM Unavailable Summary Purpose Interface Exchange Insurance Providers Payer name Policy type / Coverage type Covered alliance party ID Effective Begin Date Effective End Date WPS Medicare Part B Medicare Part B [id number] Unknown [employer] Better Health in [facility] Part B [id number] 2018 Unk nown Family history Father Diagnosis Age [...] employed [employer] 04/04/[address]: 278199876 Never smoker 04/04/[address]: 357267147 Never drinks alcohol 04/04/2015 Has the patient [...] 272.4 ICD-10: E78.2 Active 07/30/2015 Unknown Other specified hypo thyroidism ICD-9: 244.9 ICD-10: E03.8 Active 08/01/2015 Unknown Type 2 diabetes jamal itus with hyperglycemia ICD-9: 250.00 ICD-10: E11.65 Active 07/30/2015 Unknown Other vitamin B12 de [...] 623.8 ICD-10: N92.1 Active 09/10/2017 Unknown Other assisted (cur rent) drug therapy ICD-9: V58.69 ICD-10: Z79.899 Active 07/30/2015 Unknown Umbilical hernia wit hout [...] ICD-9: 272.4 ICD-10: E78.2 07/30/2015 Active Other specified hypo thyroidism ICD-9: 244.9 ICD-10: E03.8 08/01/2015 Active Type 2 diabetes jamal itus with hyperglycemia ICD-9: 250.00 ICD-10: E11.65 07/30/2015 Active Other vitamin B12 de ficiency anemias ICD-9: 281.1 ICD-10: D51.8 09/28/2017 Active Encounter for screen ing mammogram for malignant neoplasm of breast ICD-9: V76.12 ICD-10: Z12.31 11/03/2015 Active 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) ICD-9: 280.0 ICD-10: D50.0 09/14/2017 Active Excessive and freque nt menstruation with irregular cycle ICD-9: 623.8 ICD-10: N92.1 09/10/2017 Active Other buttermaker continuous churn (cur rent) drug therapy ICD-9: V58.69 ICD-10: Z79.899 07/30/2015 Active Umbilical hernia wit hout obstruction [...] (vit B-12) 1,000 mcg/mL injection solution RxNorm: 468290 Milliliter(s) Inj 09/13/2018 09/13/2018 Inactive cyanocobalamin (vit B-12) 1,000 mcg/mL injection solution RxNorm: 047425 Milliliter(s) Inj 08/11/2018 08/11/2018 Inactive naproxen 500 mg tablet RxNorm: 191616 TAKE 1 TABLET BY MOUTH TWICE DAILY 08/09/2018 11/06/2018 Ac tive Generic For:NAPROSYN 500MG 08/09/2018 1 1:14:27 AM N O T I C E Last quantity doesn't match original quantity levothyroxine 200 mc g tablet RxNorm: 863203 1 Tablet(s) PO daily to take with the 50mcg daily to equal 250mcg daily 07/19/2018 04/14/2019 Active cyanocobalamin (vit B-12) 1,000 mcg/mL injection solution RxNorm: 869699 Milliliter(s) Inj 06/29/2018 06/29/2018 Inactive naproxen 500 mg tablet RxNorm: 692443 TAKE 1 TABLET BY MOUTH TWICE DAILY 05/19/2018 08/08/2018 In active Generic For:NAPROSYN 500MG 05/19/2018 1 0:56:16 AM N O T I C E Last quantity doesn't match original quantity Kenalog 40 mg/mL debora pension for injection RxNorm: 1119943 Milliliter(s) Inj 03/23/2018 03/23/2018 In active levothyroxine 50 mcg tablet RxNorm: 035765 TAKE 1 TABLET BY MOUT H ONCE DAILY WITH 200MCG (250MCG TOTAL) 03/11/2018 06/08/2018 Inactive Generic For:SYNTHROID 50MCG TAB 03/11/2018 9:09:32 AM naproxen 500 mg tablet RxNorm: 967773 TAKE 1 TABLET BY MOUTH TWICE DAILY 02/25/2018 05/18/2018 In active Generic For:NAPROSYN 500MG 02/25/2018 1 2:39:53 PM N O T I C E Last quantity doesn't match original quantity cyanocobalamin (vit B-12) 1,000 mcg/mL injection solution RxNorm: 395832 Milliliter(s) Inj 02/07/2018 02/07/2018 Inactive metformin 1,000 mg t ablet RxNorm: 549859 TAKE 1 TABLET BY MOUT H TWICE A DAY 01/19/2018 01/13/2019 Ac tive Generic For:*GLUCOPHAGE 1000MG 01/20/20 10:20:50 AM cyanocobalamin (vit B-12) 1,000 mcg/mL injection solution RxNorm: 370328 Milliliter(s) Inj 01/13/2018 01/13/2018 Inactive cyanocobalamin (vit B-12) 1,000 mcg/mL injection solution RxNorm: 483629 Milliliter(s) Inj 12/06/2017 12/06/2017 Inactive Invokana 300 mg tablet RxNorm: 8895910 TAKE 1 TABLET BY MOUTH DAILY 11/08/2017 11/02/2018 Ac tive 11/05/2017 5:10:44 PM Lipitor 40 mg tablet RxNorm: 508034 TAKE 1 TABLET BY MOUTH DAILY 11/08/2017 11/02/2018 Active Generic For:LIPITOR 40MG 11/05/2017 5:1 0:24 PM naproxen 500 mg tablet RxNorm: 519335 TAKE 1 TABLET BY MOUTH TWICE DAILY 11/08/2017 02/05/2018 In active Generic For:NAPROSYN 500MG 11/08/2017 9 :14:56 AM N O T I C E Last quantity doesn't match original quantity levothyroxine 50 mcg tablet RxNorm: 190354 1 Tablet(s) PO daily to take with the 200mcg daily to equal 250mcg daily 11/08/2017 02/05/2018 Inactive cyanocobalamin (vit B-12) 1,000 mcg/mL injection solution RxNorm: 867612 1 Milliliter(s) Inj 11/01/2017 11/01/2017 Inactive cyanocobalamin (vit B-12) 1,000 mcg/mL injection solution RxNorm: 074989 1 Milliliter(s) Inj 09/28/2017 09/28/2017 Inactive levothyroxine 200 mc g tablet RxNorm: 936076 1 Tablet(s) PO daily to take with the 50mcg daily to equal 250mcg daily 09/14/2017 06/10/2018 Inactive levothyroxine 50 mcg tablet RxNorm: 439971 1 Tablet(s) PO daily to take with the 200mcg daily to equal 250mcg daily 09/14/2017 11/07/2017 Inactive naproxen 500 mg tablet RxNorm: 225018 TAKE 1 TABLET BY MOUTH TWICE DAILY 08/05/2017 11/02/2017 In active Generic For:NAPROSYN 500MG 08/05/2017 9 :04:47 AM N O T I C E Last quantity doesn't match original quantity naproxen 500 mg tablet RxNorm: 128030 TAKE 1 TABLET BY MOUTH TWICE DAILY 04/19/2017 08/04/2017 In active Generic For:NAPROSYN 500MG 04/19/2017 1 :49:28 PM Lipitor 40 mg tablet RxNorm: 833865 TAKE 1 TABLET BY MOUTH DAILY 03/22/2017 11/07/2017 Inactive Generic For:LIPITOR 40MG 03/20/2017 9:0 5:49 AM levothyroxine 25 mcg tablet RxNorm: 723492 1 Tablet(s) PO daily to take with her 200mcg to equal 225 mcg daily 03/22/2017 04/08/2017 Inactive Invokana 300 mg tablet RxNorm: 2781541 TAKE 1 TABLET BY MOUTH DAILY 12/21/2016 09/16/2017 In active 12/21/2016 9:03:03 AM levothyroxine 200 mc g tablet RxNorm: 044989 1 Tablet(s) PO daily 12/21/2016 09/13/2017 Inactive metformin 1,000 mg t ablet RxNorm: 578146 TAKE 1 TABLET BY MOUT H TWICE A DAY 11/26/2016 11/20/2017 In active Generic For:*GLUCOPHAGE 1000MG 11/27/19 17 1:05:15 PM naproxen 500 mg tablet RxNorm: 688414 1 Tablet(s) PO BID 10/21/2016 04/18/2017 Inactive levothyroxine 25 mcg tablet RxNorm: 602311 1 Tablet(s) PO daily to take with her 200mcg to equal 225 mcg daily 10/13/2016 01/10/2017 Inactive levothyroxine 50 mcg tablet RxNorm: 288747 1 Tablet(s) PO daily 09/21/2016 10/12/2016 Inactive Invokana 300 mg tablet RxNorm: 7455075 1 Tablet(s) PO daily 09/21/2016 12/19/2016 Inactive metformin 1,000 mg t ablet RxNorm: 687381 TAKE 1 TABLET BY MOUT H TWICE A DAY 09/21/2016 11/25/2016 In active Generic For:*GLUCOPHAGE 1000MG 09/22/19 17 8:53:30 AM levothyroxine 200 mc g tablet RxNorm: 412788 1 Tablet(s) PO daily 09/21/2016 12/19/2016 Inactive Lipitor 40 mg tablet RxNorm: 681425 TAKE 1 TABLET BY MOUTH DAILY 06/23/2016 03/19/2017 Inactive Generic For:LIPITOR 40MG 06/23/2016 9:1 2:42 AM levothyroxine 50 mcg tablet RxNorm: 448090 1 Tablet(s) PO daily TAKE 1 TABLET BY MOUTH DAILY 06/23/2016 09/20/2016 Inactive Generic For:SYNTHROID 50MCG TAB 06/23/2016 9:22:58 AM metformin 1,000 mg t ablet RxNorm: 621683 TAKE 1 TABLET BY MOUT H TWICE A DAY 06/23/2016 09/20/2016 In active Generic For:*GLUCOPHAGE 1000MG 06/23/19 17 9:12:46 AM levothyroxine 200 mc g tablet RxNorm: 915056 1 Tablet(s) PO daily 04/24/2016 08/21/2016 Inactive naproxen 500 mg tablet RxNorm: 128130 1 Tablet(s) PO BID 03/26/2016 10/20/2016 Inactive levothyroxine 50 mcg tablet RxNorm: 653156 1 Tablet(s) PO daily 03/25/2016 06/23/2016 Inactive Flonase Allergy Reli ef 50 mcg/actuation nasal spray,suspension RxNorm: 2209731 1 Eclectic NASAL BID 01/14/2016 No Stop Date Active prednisone 20 mg tablet RxNorm: 169300 2 Tablet(s) PO daily 01/14/2016 01/16/2016 Inactive Zithromax Z-Michael 250 mg tablet RxNorm: 623106 Tablet(s) PO 01/14/2016 02/25/2016 Inactive levothyroxine 200 mc g tablet RxNorm: 977900 1 Tablet(s) PO daily 11/25/2015 03/23/2016 Inactive levothyroxine 50 mcg tablet RxNorm: 887531 1 Tablet(s) PO daily 11/25/2015 03/23/2016 Inactive Invokana 300 mg tablet RxNorm: 2931317 1 Tablet(s) PO daily 11/25/2015 09/20/2016 Inactive metformin 1,000 mg t ablet RxNorm: 618697 TAKE 1 TABLET BY MOUT H TWICE A DAY 08/22/2015 05/17/2016 In active Generic For:*GLUCOPHAGE 1000MG N O T I C E PRESCRIPTION PREVIOUSLY AUTHORIZED BY DOCTOR:PEDRO SIMPSON levothyroxine 200 mc g tablet RxNorm: 047990 1 Tablet(s) PO daily 08/02/2015 11/24/2015 Inactive levothyroxine 25 mcg tablet RxNorm: 347493 1 Tablet(s) PO daily 08/02/2015 11/24/2015 Inactive levothyroxine 25 mcg tablet RxNorm: 763169 1 Tablet(s) PO daily 08/02/2015 08/01/2015 Inactive Zithromax Z-Michael 250 mg tablet RxNorm: 841867 Tablet(s) PO 07/31/2015 10/27/2015 Inactive naproxen 500 mg tablet RxNorm: 448114 1 Tablet(s) PO BID 07/31/2015 02/25/2016 Inactive Lipitor 40 mg tablet RxNorm: 433660 TAKE 1 TABLET BY MOUTH DAILY 05/26/2015 05/19/2016 Inactive Generic For:LIPITOR 40MG 05/25/2015 10: 36:19 AM levothyroxine 200 mc g tablet RxNorm: 135402 TAKE 1 TABLET ONCE DA SUKUMAR WITH 50MCG TABLET TO MAKE 250MCG. 05/26/2015 07/30/2015 Inactive Generic For:SYNTHROID 200MC G TAB 05/25/2015 10:36:11 AM Invokana 100 mg tablet RxNorm: 7448025 1 Tablet(s) PO daily 03/15/2015 03/14/2015 Inactive Invokana 100 mg tablet RxNorm: 1225285 1 Tablet(s) PO daily 03/15/2015 11/24/2015 Inactive naproxen 500 mg tablet RxNorm: 141003 1 Tablet(s) PO BID 03/13/2015 07/30/2015 Inactive metformin 1,000 mg t ablet RxNorm: 765983 1 Tablet(s) PO BID 03/13/2015 08/21/2015 Inactive levothyroxine 200 mc g tablet RxNorm: 916102 TAKE 1 TABLET ONCE DA SUKUMAR WITH 50MCG TABLET TO MAKE 250MCG. 02/12/2015 05/12/2015 Inactive Generic For:SYNTHROID 200MC G TAB 02/12/2015 11:50:50 AM Lipitor 40 mg tablet RxNorm: 910250 TAKE 1 TABLET BY MOUTH DAILY 02/12/2015 05/12/2015 Inactive Generic For:LIPITOR 40MG 02/12/2015 11: 50:55 AM levothyroxine 200 mc g tablet RxNorm: 491024 1 Tablet(s) PO daily 11/19/2014 02/11/2015 Inactive levothyroxine 200 mc g tablet RxNorm: 972000 1 Tablet(s) PO daily 11/19/2014 11/18/2014 Inactive Lipitor 40 mg tablet RxNorm: 607945 1 Tablet(s) PO daily call and make appt. 11/19/2014 02/11/2015 In active Lipitor 40 mg tablet RxNorm: 644890 1 Tablet(s) PO daily call and make appt. 11/15/2014 11/18/2014 In active Lipitor 40 mg tablet RxNorm: 773380 1 Tablet(s) PO daily call and make appt. 11/15/2014 11/14/2014 In active Flintstones with Iro n oral RxNorm: oral No Start D ate Active Vitamin B-12 1,000 m cg/mL injection solution RxNorm: 724335 1 Milliliter(s) Inj m onthly No Start Date Active levothyroxine 200 mc g tablet RxNorm: 673212 1 Tablet(s) PO daily No Start Date 08/01/2015 Inactive Medication Administered Medication Codes Instruc tions Start Date Status cyanocobalamin (vit B-12) 1,000 mcg/mL injection solut ion RxNorm: 039131 Milliliter 09/13/2018 No longer Active cyanocobalamin (vit B-12) 1,000 mcg/mL injection solut ion RxNorm: 017130 Milliliter 08/11/2018 No longer Active cyanocobalamin (vit B-12) 1,000 mcg/mL injection solut ion RxNorm: 430344 Milliliter 06/29/2018 No longer Active Kenalog 40 mg/mL suspension for injection RxNorm: 7156433 Milliliter 03/23/2018 No longer Active cyanocobalamin (vit B-12) 1,000 mcg/mL injection solut ion RxNorm: 219766 Milliliter 02/07/2018 No longer Active cyanocobalamin (vit B-12) 1,000 mcg/mL injection solut ion RxNorm: 434254 Milliliter 01/13/2018 No longer Active cyanocobalamin (vit B-12) 1,000 mcg/mL injection solut ion RxNorm: 289702 Milliliter 12/06/2017 No longer Active cyanocobalamin (vit B-12) 1,000 mcg/mL injection solut ion RxNorm: 940676 1Milliliter 11/01/2017 No longer Active cyanocobalamin (vit B-12) 1,000 mcg/mL injection solut ion RxNorm: 536209 1Milliliter 09/28/2017 No longer Active Immunizations Vaccine Codes Date Status Influenza CVX: 141 03/21 completed Assessments Condition Codes Effectiv e Dates Type 2 diabetes mellitus with hyperglycemia ICD-10: E11.65 ICD-9: 250.00 09/19/2018 Other specified hypothyroidism ICD-1 0: E03.8 ICD-9: 244.9 09/19/2018 Mixed hyperlipidemia ICD-10: E78.2 ICD-9: 272.4 09/19/2018 Other vitamin B12 deficiency anemias ICD-10: D51.8 ICD-9: 281.1 09/13/2018 Encounter for screening mammogram for ma lignant neoplasm of breast ICD-10: Z12.31 ICD-9: V76.12 04/05/2018 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) ICD- 10: D50.0 ICD-9: 280.0 09/27/2017 Other buttermaker continuous churn (current) drug therapy ICD-10: Z79.899 ICD-9: V58.69 [...] Reason For Visit Effective Dates Notes hypothyroid 09/10/2017 hypothyroid 10/13/2016 cough 01/14/2016 hypothyroid 07/31/2015 ankle pain 04/04/2015 hypothyroid 03/13/2015 Results Observation Observation Code Item Item Code Result Date Hgb & Hct Ord65 HGB 9.7 g/dl 10/06/2017 Hgb & Hct Ord65 HCT 33.5 % 10/06/2017 Hgb & Hct Ord65 HGB 8.6 g/dl 09/24/2017 Hgb & Hct Ord65 HCT 30.4 % 09/24/2017 B12 Yec074 B12 124.00 pg/ml 09/15/2017 Cbc With Differential [...] 20.0 pg 09/15/2017 Cbc With Differential Ord2 [place]% 7.7 % 09/15/2017 Cbc With Differential Ord2 [...] 1.94 K/ul 09/15/2017 Cbc With Differential Ord2 [place] ABS# 0.8 K/ul 09/15/2017 Cbc With Differential Ord2 Eos ABS# 0.5 K/ul 09/15/2017 Cbc With Differential Ord2 Baso ABS# 0.1 K/ul 09/15/2017 Tibc Ord40 Iron 21 ug/dl 09/15/2017 Tibc Ord40 UIBC 432 ug/dL 09/15/2017 Tibc Ord40 TIBC 453 ug/dL 09/15/2017 Tibc Ord40 Fe-%Sat 4.6 % 09/15/2017 Folate Ord36 Folate 15.31 ng/mL 09/15/2017 Ferritin Ord22 FERRITIN 4.3 ng/mL 09/15/2017 Free T4 Nta573 FREE T4 0.88 ng/dL 09/10/2017 %Hba1C Ijx181 % HbA1c 92184-6 6.7 % 09/10/2017 %Hba1C Oql985 Gluc Ave 146 mg/dL 09/10/2017 Cbc With [...] 20.5 pg 09/10/2017 Cbc With Differential Ord2 [place]% 8.0 % 09/10/2017 Cbc With Differential Ord2 [...] 2.10 K/ul 09/10/2017 Cbc With Differential Ord2 [place] ABS# 0.7 K/ul 09/10/2017 Cbc With Differential Ord2 Eos ABS# 0.5 K/ul 09/10/2017 Cbc With Differential Ord2 Baso ABS# 0.0 K/ul 09/10/2017 Comp Metabolic Pzp853 NA 139 mEq/L 09/10/2017 Comp Metabolic Klz843 K 4.6 mEq/L 09/10/2017 Comp Metabolic Yyo070 CL 103 mEq/L 09/10/2017 Comp Metabolic Yvn496 CO2 28.0 mEq/L 09/10/2017 Comp Metabolic Dkn511 AN ION GAP 13 09/10/2017 Comp Metabolic Rld145 GL UCOSE 91 mg/dL 09/10/2017 Comp Metabolic Woy513 Cr eat 0.6 mg/dL 09/10/2017 Comp Metabolic Trd212 eG FR 117 ml/min/1.73m2 08/20 Comp Metabolic Uls075 BUN 22 mg/dL 09/10/2017 Comp Metabolic Wuj753 B/ C Ratio 37.3 Ratio 09/10/2017 Comp Metabolic Fof826 CA LCIUM 9.6 mg/dL 09/10/2017 Comp Metabolic Nev006 AL K PHOS 100 U/L 09/10/2017 Comp Metabolic Meq296 T(SGOT) 12 U/L 09/10/2017 Comp Metabolic Bms635 AL T(SGPT) 13 U/L 09/10/2017 Comp Metabolic Ohj964 BI LI T 0.2 mg/dL 09/10/2017 Comp Metabolic Tmu068 AL BUMIN 3.9 g/dL 09/10/2017 Comp Metabolic Bff357 TP RO 7.0 g/dL 09/10/2017 Comp Metabolic Pdn313 GL OB 3.1 g/dL 09/10/2017 Comp Metabolic Xsv684 A/ G Ratio 1.3 Ratio 09/10/2017 Comp Metabolic Ivx174 Os mo 280 mOsmo 09/10/2017 Tsh Ord6 TSH (3rd IS) 6.83 uIU/mL 09/10/2017 Free T4 Hwz189 FREE T4 1.53 ng/dL 04/07/2017 Tsh Ord6 hTSH II 0.55 uIU/mL 04/07/2017 Tsh Ord6 hTSH II 0.55 uIU/mL 12/30/2016 Free T4 Zff622 FREE T4 1.15 ng/dL 12/30/2016 %Hba1C Qmt144 % HbA1c 14246-1 6.0 % 10/01/2016 %Hba1C Iat028 Gluc Ave 126 mg/dL 10/01/2016 Tsh Ord6 hTSH II 0.19 uIU/mL 10/01/2016 Comp Metabolic Eeq221 NA 139 mEq/L 10/01/2016 Comp Metabolic Ufo483 K 4.6 mEq/L 10/01/2016 Comp Metabolic Hfu087 CL 102 mEq/L 10/01/2016 Comp Metabolic Dgw796 CO2 28.0 mEq/L 10/01/2016 Comp Metabolic Kby498 AN ION GAP 14 10/01/2016 Comp Metabolic Ihs348 GL UCOSE 93 mg/dL 10/01/2016 Comp Metabolic Hhl513 Cr eat 0.6 mg/dL 10/01/2016 Comp Metabolic Paq028 eG FR 109 ml/min/1.73m2 09/19 Comp Metabolic Hon602 BUN 20 mg/dL 10/01/2016 Comp Metabolic Kvi397 B/ C Ratio 31.7 Ratio 10/01/2016 Comp Metabolic Aki542 CA LCIUM 9.8 mg/dL 10/01/2016 Comp Metabolic Aqr298 AL K PHOS 114 U/L 10/01/2016 Comp Metabolic Zuw164 T(SGOT) 11 U/L 10/01/2016 Comp Metabolic Tmi686 AL T(SGPT) 12 U/L 10/01/2016 Comp Metabolic Osl661 BI LI T 0.4 mg/dL 10/01/2016 Comp Metabolic Gqi265 AL BUMIN 4.3 g/dL 10/01/2016 Comp Metabolic Scm836 TP RO 7.2 g/dL 10/01/2016 Comp Metabolic Mcu093 GL OB 2.9 g/dL 10/01/2016 Comp Metabolic Avh346 A/ G Ratio 1.5 Ratio 10/01/2016 Comp Metabolic Zjc150 Os mo 280 mOsmo 10/01/2016 Free T4 Eti891 FREE T4 1.37 ng/dL 10/01/2016 Lipid Ord30 [...] 27.9 pg 10/01/2016 Cbc With Differential Ord2 [place]% 8.5 % 10/01/2016 Cbc With Differential Ord2 [...] 1.69 K/ul 10/01/2016 Cbc With Differential Ord2 [place] ABS# 0.7 K/ul 10/01/2016 Cbc With Differential [...] 22.7 pg 04/06/2016 Cbc With Differential Ord2 [place]% 8.2 % 04/06/2016 Cbc With Differential Ord2 [...] 1.48 K/ul 04/06/2016 Cbc With Differential Ord2 [place] ABS# 0.5 K/ul 04/06/2016 Cbc With Differential Ord2 Eos ABS# 0.4 K/ul 04/06/2016 Cbc With Differential Ord2 Baso ABS# 0.0 K/ul 04/06/2016 Ferritin Ord22 FERRITIN 5.8 ng/mL 04/06/2016 Free T4 Mgk687 FREE T4 1.16 ng/dL 03/16/2016 %Hba1C Lua295 % HbA1c 16849-7 7.0 % 03/16/2016 %Hba1C Jid555 Gluc Ave 154 mg/dL 03/16/2016 Cbc With [...] 23.2 pg 03/16/2016 Cbc With Differential Ord2 [place]% 4.8 % 03/16/2016 Cbc With Differential Ord2 [...] 1.75 K/ul 03/16/2016 Cbc With Differential Ord2 [place] ABS# 0.6 K/ul 03/16/2016 Cbc With Differential Ord2 Eos ABS# 0.4 K/ul 03/16/2016 Cbc With Differential Ord2 Baso ABS# 0.0 K/ul 03/16/2016 Tsh Ord6 hTSH II 1.39 uIU/mL 03/16/2016 Tsh Ord6 hTSH II 10.28 uIU/mL 11/14/2015 Free T4 Zea267 FREE T4 0.79 ng/dL 11/14/2015 Lipid Ord30 [...] 24.4 pg 11/14/2015 Cbc With Differential Ord2 [place]% 6.6 % 11/14/2015 Cbc With Differential Ord2 [...] 1.72 K/ul 11/14/2015 Cbc With Differential Ord2 [place] ABS# 0.8 K/ul 11/14/2015 Cbc With Differential Ord2 Eos ABS# 0.4 K/ul 11/14/2015 Cbc With Differential Ord2 Baso ABS# 0.0 K/ul 11/14/2015 Comp Metabolic Jop610 NA 136 mEq/L 11/14/2015 Comp Metabolic Yyl422 K 4.4 mEq/L 11/14/2015 Comp Metabolic Mja295 CL 101 mEq/L 11/14/2015 Comp Metabolic Ecd918 CO2 27.0 mEq/L 11/14/2015 Comp Metabolic Rvj453 AN ION GAP 12 11/14/2015 Comp Metabolic Rhs365 GL UCOSE 107 mg/dL 11/14/2015 Comp Metabolic Jlr746 Cr eat 0.6 mg/dL 11/14/2015 Comp Metabolic Har188 eG FR 125 ml/min/1.73m2 10/20 Comp Metabolic Pni717 BUN 14 mg/dL 11/14/2015 Comp Metabolic Cez765 B/ C Ratio 25.0 Ratio 11/14/2015 Comp Metabolic Ver443 CA LCIUM 9.6 mg/dL 11/14/2015 Comp Metabolic Vrt709 AL K PHOS 104 U/L 11/14/2015 Comp Metabolic Qeg541 T(SGOT) 16 U/L 11/14/2015 Comp Metabolic Lhc369 AL T(SGPT) 14 U/L 11/14/2015 Comp Metabolic Lji803 BI LI T 0.3 mg/dL 11/14/2015 Comp Metabolic Trg520 AL BUMIN 4.0 g/dL 11/14/2015 Comp Metabolic Ewv330 TP RO 7.2 g/dL 11/14/2015 Comp Metabolic Kjz881 GL OB 3.2 g/dL 11/14/2015 Comp Metabolic Tld166 A/ G Ratio 1.3 Ratio 11/14/2015 Comp Metabolic Vbw318 Os mo 273 mOsmo 11/14/2015 %Hba1C Fva183 % HbA1c 24200-3 7.0 % 11/14/2015 %Hba1C Kii249 Gluc Ave 154 mg/dL 11/14/2015 Free T4 Ezz079 FREE T4 0.49 ng/dL 08/02/2015 Tsh Ord6 hTSH II 44.41 uIU/mL 07/31/2015 %Hba1C Qhn270 % HbA1c 85771-3 6.7 % 07/31/2015 %Hba1C Mre593 Gluc Ave 146 mg/dL 07/31/2015 Cbc With [...] Differential Ord2 RDW 14.9 % 03/13/2015 %Hba1C Shy679 % HbA1c 24435-0 6.8 % 03/13/2015 %Hba1C Cys500 Gluc Ave 148 mg/dL 03/13/2015 Tsh Ord6 hTSH II 0.95 uIU/mL 03/13/2015 Lipid Ord30 CHOL 146 mg/dL 03/13/2015 Lipid Ord30 HDL 40.0 mg/dl 03/13/2015 Lipid Ord30 TRIG 137 mg/dL 03/13/2015 Lipid Ord30 LDL 79 mg/dL 03/13/2015 Lipid Ord30 C/HDL 3.7 Ratio 03/13/2015 Comp Metabolic Lkq476 NA 135 mEq/L 03/13/2015 Comp Metabolic Bdd863 K 4.5 mEq/L 03/13/2015 Comp Metabolic Twp551 CL 99 mEq/L 03/13/2015 Comp Metabolic Pwl981 CO2 29.0 mEq/L 03/13/2015 Comp Metabolic Chs517 AN ION GAP 12 03/13/2015 Comp Metabolic Ntk744 GL UCOSE 98 mg/dL 03/13/2015 Comp Metabolic Muh246 Cr eat 0.7 mg/dL 03/13/2015 Comp Metabolic Zgy529 eG FR 100 ml/min/1.73m2 02/20 Comp Metabolic Czu421 BUN 13 mg/dL 03/13/2015 Comp Metabolic Mwi506 B/ C Ratio 19.1 Ratio 03/13/2015 Comp Metabolic Ioz592 CA LCIUM 9.8 mg/dL 03/13/2015 Comp Metabolic Zyr598 AL K PHOS 91 U/L 03/13/2015 Comp Metabolic Rmq305 T(SGOT) 10 U/L 03/13/2015 Comp Metabolic Zyw225 AL T(SGPT) 10 U/L 03/13/2015 Comp Metabolic Wel275 BI LI T 0.4 mg/dL 03/13/2015 Comp Metabolic Fup245 AL BUMIN 4.1 g/dL 03/13/2015 Comp Metabolic Mff012 TP RO 6.9 g/dL 03/13/2015 Comp Metabolic Rce680 GL OB 2.8 g/dL 03/13/2015 Comp Metabolic Qsw004 A/ G Ratio 1.5 Ratio 03/13/2015 Comp Metabolic Fqi284 Os mo 270 mOsmo 03/13/2015 Free T4 Eoz725 FREE T4 1.25 ng/dL 03/13/2015 Review of Systems System Result Effective Dates Constitutional No recent illness 09/10/2017 Constitutional No [...] Procedure Codes Date THER/PROPH/DIAG INJ SC/IM CPT-4: 99953 09/13/2018 VITAMIN B12 INJECTION CPT-4: J3420 09/13/2018 THER/PROPH/DIAG INJ SC/IM CPT-4: 49135 08/11/2018 VITAMIN B12 INJECTION CPT-4: J3420 08/11/2018 THER/PROPH/DIAG INJ SC/IM CPT-4: 29810 06/29/2018 THER/PROPH/DIAG INJ SC/IM CPT-4: 59450 03/23/2018 VITAMIN B12 INJECTION CPT-4: J3420 03/23/2018 THER/PROPH/DIAG INJ SC/IM CPT-4: 73695 02/07/2018 VITAMIN B12 INJECTION CPT-4: J3420 02/07/2018 THER/PROPH/DIAG INJ SC/IM CPT-4: 22950 01/13/2018 VITAMIN B12 INJECTION CPT-4: J3420 01/13/2018 VITAMIN B12 INJECTION CPT-4: J3420 12/06/2017 THER/PROPH/DIAG INJ SC/IM CPT-4: 96797 12/06/2017 THER/PROPH/DIAG INJ SC/IM CPT-4: 31594 11/01/2017 VITAMIN B12 INJECTION CPT-4: J3420 11/01/2017 THER/PROPH/DIAG INJ SC/IM CPT-4: 77496 09/28/2017 VITAMIN B12 INJECTION CPT-4: J3420 09/28/2017 Vital Signs Date Vital 11/01/2017 Heigh t: 5'3" 09/10/2017 Blood Pressure 1: 136/70 Code: 8480-6 BMI: 44.6 Code: 09255-3 Heart Rate 1: 91 bpm Height: 5'3" SpO2: 96% Weight: 252 lbs 10/13/2016 Blood Pressure 1: 134/82 Code: 8480-6 BMI: 43.6 Code: 87371-5 Heart Rate 1: 97 bpm Height: 5'3" SpO2: 97% Weight: 246 lbs 01/14/2016 Blood Pressure 1: 132/78 Code: 8480-6 BMI: 45.7 Code: 44811-5 Heart Rate 1: 90 bpm Height: 5'3" SpO2: 98% Weight: 258 lbs 07/31/2015 Blood Pressure 1: 142/80 Code: 8480-6 BMI: 45.7 Code: 63224-5 Heart Rate 1: 78 bpm Height: 5'3" SpO2: 96% Weight: 258 lbs 04/04/2015 Blood Pressure 1: 130/82 Code: 8480-6 BMI: 44.9 Code: 89049-6 Heart Rate 1: 90 bpm Height: 5'3" SpO2: 96% Weight: 253 lbs 5 oz 03/13/2015 Blood Pressure 1: 140/86 Code: 8480-6 BMI: 45.2 Code: 72179-1 Heart Rate 1: 87 bpm Height: 5'3" SpO2: 93% Weight: 255 lbs Functional Status No Functional Status data History of Present Illness Symptom Name Status Resu lt Effective Date Notes hypothyroid Location at the level of the thyroid 09/10/2017 None 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 PATIENT, LEVEL IV Diagnosis: Excessive and frequent menstruation with irregular cycle[ICD10: N92.1] Diagnosis: Type 2 diabetes mellitus with hyperglycemia[ICD10: E11.65] Diagnosis: Other specified hypothyroidism[ICD10: E03.8] Diagnosis: Other buttermaker continuous churn (current) drug therapy[ICD10: Z79.899] Anyi Cano MD, [facility] CPT-4: 65724 09/10/2017 [id number] EST. PATIENT, LEVEL IV Diagnosis: Type 2 diabetes mellitus with hyperglycemia[ICD10: E11.65] Diagnosis: Other specified hypothyroidism[ICD10: E03.8] Diagnosis: Other buttermaker continuous churn (current) drug therapy[ICD10: Z79.899] Diagnosis: Umbilical hernia without obstruction or gangrene[ICD10: K42.9] Anyi Cano MD, [facility] CPT-4: 43492 10/13/2016 [id number] EST. PATIENT, LEVEL IV Diagnosis: Other acute sinusitis[ICD10: J01.80] Diagnosis: Other allergic rhinitis[ICD10: J30.89] Diagnosis: Wheezing[ICD10: R06.2] Anyi Cano MD, [facility] CPT-4: [id number] 01/14/2016 45030 EST. PATIENT, LEVEL IV Diagnosis: Other buttermaker continuous churn (current) drug therapy[ICD10: Z79.899] Diagnosis: Type 2 diabetes mellitus with hyperglycemia[ICD10: E11.65] Diagnosis: Other specified hypothyroidism[ICD10: E03.8] Diagnosis: Mixed hyperlipidemia[ICD10: E78.2] Anyi Cano MD, [facility] CPT-4: 41279 07/31/2015 ([id number]) 70853 EST. P ATIENT, LEVEL III Diagnosis: Achilles tendinitis, left leg[ICD10: M76.62] Beba Cano MD, [facility] CPT-4: 69870 04/04/2015 ([id number]) OFFICE VISI T, NEW - LEVEL 4 Diagnosis: HYPERLIPIDEMIA[ICD9: 272.4] Diagnosis: DIABETES TYPE II[ICD9: 250.00] Diagnosis: HYPOTHYROIDISM[ICD9: 244.9] Diagnosis: ACHILLES TENDINITIS[ICD9: 726.71] Beba Cano MD, [facility] CPT-4: 76251 03/13/2015 Plan of Care Planned Activity Notes C odes Status Date Patient Education: Patient Medication Summary Completed 09/19/2018 Care Plan: Cbc With Differential Pending 09/19/2018 Care Plan: Comp Metabolic Pending 09/19/2018 Care Plan: Tsh Pending 09/19/2018 Care Plan: Free T4 Pending 09/19/2018 Care Plan: Lipid Pending 09/19/2018 Care Plan: %Hba1C LOIN C : 80413-3 Pending 09/19/2018 Appointment: Injection 09/13/2018 Patient Education: Patient Medication Summary Completed 09/13/2018 Appointment: Injection 08/11/2018 Patient Education: Patient Medication Summary Completed 08/11/2018 Appointment: Injection 06/29/2018 Patient Education: Patient Medication Summary Completed 06/29/2018 Patient Education: Patient Medication Summary Completed 04/05/2018 Care Plan: SCREENINGMAMMOGRAPHYDIGITAL LOINC : 71997-2 Pending 04/05/2018 Appointment: Injection 03/23/2018 Patient Education: Patient Medication Summary Completed 03/23/2018 Appointment: Injection 02/07/2018 Patient Education: Patient Medication Summary Completed 02/07/2018 Appointment: Injection 01/13/2018 Patient Education: Patient Medication Summary Completed 01/13/2018 Patient Education: Patient Medication Summary Completed 01/12/2018 Care Plan: SCREENINGMAMMOGRAPHY[facility]ITAL [facility] : 77991-4 Pending 01/12/2018 Appointment: Injection 12/06/2017 Patient Education: [...] 09/14/2017 Care Plan: Referral Order SNOMED-CT : [id number] Pending 09/13/2017 Visit Plan: Diabetes Mellitus - [...] or pap done - will refer to FIELD OBSERVER due to pt symptoms and difficulty for exam - pt is to notify clinic with any changes or concerns. 09/10/2017 Appointment: Anyi Velázquez WPtel: [facility] [place] (15 min) Moderate 09/10/2017 Patient Education: Patient Medication Summary Completed 09/10/2017 Referral: Arvind Briseno [address] [facility] Referral Completed 10/27/2016 Referral: Arvind Briseno [address] [facility] Referral Initiated 10/27/2016 Visit Plan: Umbilical [...] of control. 10/13/2016 Appointment: Anyi Velázquez WPtel: [address] [place] [address] (15 min) Moderate 10/13/2016 Patient Education: Patient Medication Summary Completed 10/13/2016 Care Plan: Referral Order SNOMED-CT : [id number] Pending 10/13/2016 Visit Plan: Sinusitis - Pt [...] allergy spray. 01/14/2016 Appointment: Melissa Newman WPtel: [address] [place], [place] [phone] (30 min) Complex 01/14/2016 Patient Education: Patient [...] improving. 04/04/2015 Appointment: [facility]el[id number] (15 min) Moderate 04/04/2015 Patient Education: [...] that appt. 03/13/2015 Appointment: Beba Cano WPtel: [address] [place] [address] [place] ([place]) New Patient 03/13/2015 Patient Education: Patient Medication Summary Completed 03/13/2015 Patient Education: Hypertension Completed 03/13/2015 Patient Education: Patient Medication Summary Completed 10/24/2014 Referral: Katia Hunter WPtel: [address] [place] [address] they will call pt to schedule appt Initiated Referral: Katia Hunter WPtel: [address] [place] [address] Referral Initiated Referral: Arvind Briseno [address] [place] [address] Referral Initiated Instructions Comment . Sinusitis - [...] in the nasal steroid allergy spray. . Diabetes Mellitus - I have recommended [...] or pap done - will refer to FIELD OBSERVER due to pt symptoms and difficulty for [...]
--- OUTSIDE RECORDS SUMMARY | 2020-01-06 14:46 | XMS REPORT | CCD ---
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 Part B [id number] Unk nown Family history Father Diagnosis Age [...] employed [employer] 04/04/[address]: 004034338 Never smoker 04/04/[address]: 228061440 Never drinks alcohol 04/04/2015 Has the patient [...] ICD-9: 706.1 ICD-10: L70.0 Active 09/21/2018 Unknown Mixed hyperlipidemia ICD-9: 272.4 ICD-10: E78.2 [...] 623.8 ICD-10: N92.1 Active 09/10/2017 Unknown Other nursing home (cur rent) drug [...] vulgaris ICD-9: 706.1 ICD-10: L70.0 09/21/2018 Active Mixed hyperlipidemia ICD-9: 272.4 ICD-10: E78.2 [...] ICD-9: 623.8 ICD-10: N92.1 09/10/2017 Active 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 [...] Fill Instructions Farxiga 10 mg tablet RxNorm: 2107651 1 Tablet(s) PO daily 09/21/2018 01/18/[address] of invokana Farxiga 10 mg tablet RxNorm: 3657980 1 Tablet(s) PO daily 09/21/2018 09/20/[address] invokana cyanocobalamin (vit B-12) 1,000 mcg/mL injection solution RxNorm: 519306 Milliliter(s) Inj 09/13/2018 09/13/2018 Inactive cyanocobalamin (vit B-12) 1,000 mcg/mL injection solution RxNorm: 631636 Milliliter(s) Inj 08/11/2018 08/11/2018 Inactive naproxen 500 mg tablet RxNorm: 271111 TAKE 1 TABLET BY MOUTH TWICE DAILY 08/09/2018 11/06/2018 Ac tive Generic For:NAPROSYN 500MG 08/09/2018 1 1:14:27 AM N O T I C E Last quantity doesn't match original quantity levothyroxine 200 mc g tablet RxNorm: 269052 1 Tablet(s) PO daily to take with the 50mcg daily to equal 250mcg daily 07/19/2018 04/14/2019 Active cyanocobalamin (vit B-12) 1,000 mcg/mL injection solution RxNorm: 604143 Milliliter(s) Inj 06/29/2018 06/29/2018 Inactive naproxen 500 mg tablet RxNorm: 134678 TAKE 1 TABLET BY MOUTH TWICE DAILY 05/19/2018 08/08/2018 In active Generic For:NAPROSYN 500MG 05/19/2018 1 0:56:16 AM N O T I C E Last quantity doesn't match original quantity Kenalog 40 mg/mL [facility] pension for injection RxNorm: 0640224 Milliliter(s) Inj 03/23/2018 03/23/2018 In active levothyroxine 50 mcg tablet RxNorm: 039209 TAKE 1 TABLET BY MOUT H ONCE DAILY WITH 200MCG (250MCG TOTAL) 03/11/2018 06/08/2018 Inactive Generic For:SYNTHROID 50MCG TAB 03/11/2018 9:09:32 AM naproxen 500 mg tablet RxNorm: 178361 TAKE 1 TABLET BY MOUTH TWICE DAILY 02/25/2018 05/18/2018 In active Generic For:NAPROSYN 500MG 02/25/2018 1 2:39:53 PM N O T I C E Last quantity doesn't match original quantity cyanocobalamin (vit B-12) 1,000 mcg/mL injection solution RxNorm: 666321 Milliliter(s) Inj 02/07/2018 02/07/2018 Inactive metformin 1,000 mg t ablet RxNorm: 214931 TAKE 1 TABLET BY MOUT H TWICE A DAY 01/19/2018 01/13/2019 Ac tive Generic For:*GLUCOPHAGE 1000MG 01/20/20 10:20:50 AM cyanocobalamin (vit B-12) 1,000 mcg/mL injection solution RxNorm: 734594 Milliliter(s) Inj 01/13/2018 01/13/2018 Inactive cyanocobalamin (vit B-12) 1,000 mcg/mL injection solution RxNorm: 666859 Milliliter(s) Inj 12/06/2017 12/06/2017 Inactive Lipitor 40 mg tablet RxNorm: 328686 TAKE 1 TABLET BY MOUTH DAILY 11/08/2017 11/02/2018 Active Generic For:LIPITOR 40MG 11/05/2017 5:1 0:24 PM Invokana 300 mg tablet RxNorm: 4291922 TAKE 1 TABLET BY MOUTH DAILY 11/08/2017 09/20/2018 In active 11/05/2017 5:10:44 PM naproxen 500 mg tablet RxNorm: 349600 TAKE 1 TABLET BY MOUTH TWICE DAILY 11/08/2017 02/05/2018 In active Generic For:NAPROSYN 500MG 11/08/2017 9 :14:56 AM N O T I C E Last quantity doesn't match original quantity levothyroxine 50 mcg tablet RxNorm: 956008 1 Tablet(s) PO daily to take with the 200mcg daily to equal 250mcg daily 11/08/2017 02/05/2018 Inactive cyanocobalamin (vit B-12) 1,000 mcg/mL injection solution RxNorm: 691052 1 Milliliter(s) Inj 11/01/2017 11/01/2017 Inactive cyanocobalamin (vit B-12) 1,000 mcg/mL injection solution RxNorm: 290482 1 Milliliter(s) Inj 09/28/2017 09/28/2017 Inactive levothyroxine 200 mc g tablet RxNorm: 406740 1 Tablet(s) PO daily to take with the 50mcg daily to equal 250mcg daily 09/14/2017 06/10/2018 Inactive levothyroxine 50 mcg tablet RxNorm: 589990 1 Tablet(s) PO daily to take with the 200mcg daily to equal 250mcg daily 09/14/2017 11/07/2017 Inactive naproxen 500 mg tablet RxNorm: 131307 TAKE 1 TABLET BY MOUTH TWICE DAILY 08/05/2017 11/02/2017 In active Generic For:NAPROSYN 500MG 08/05/2017 9 :04:47 AM N O T I C E Last quantity doesn't match original quantity naproxen 500 mg tablet RxNorm: 373935 TAKE 1 TABLET BY MOUTH TWICE DAILY 04/19/2017 08/04/2017 In active Generic For:NAPROSYN 500MG 04/19/2017 1 :49:28 PM Lipitor 40 mg tablet RxNorm: 229703 TAKE 1 TABLET BY MOUTH DAILY 03/22/2017 11/07/2017 Inactive Generic For:LIPITOR 40MG 03/20/2017 9:0 5:49 AM levothyroxine 25 mcg tablet RxNorm: 175194 1 Tablet(s) PO daily to take with her 200mcg to equal 225 mcg daily 03/22/2017 04/08/2017 Inactive Invokana 300 mg tablet RxNorm: 7119422 TAKE 1 TABLET BY MOUTH DAILY 12/21/2016 09/16/2017 In active 12/21/2016 9:03:03 AM levothyroxine 200 mc g tablet RxNorm: 105313 1 Tablet(s) PO daily 12/21/2016 09/13/2017 Inactive metformin 1,000 mg t ablet RxNorm: 742823 TAKE 1 TABLET BY MOUT H TWICE A DAY 11/26/2016 11/20/2017 In active Generic For:*GLUCOPHAGE 1000MG 11/27/19 1:05:15 PM naproxen 500 mg tablet RxNorm: 882703 1 Tablet(s) PO BID 10/21/2016 04/18/2017 Inactive levothyroxine 25 mcg tablet RxNorm: 091739 1 Tablet(s) PO daily to take with her 200mcg to equal 225 mcg daily 10/13/2016 01/10/2017 Inactive levothyroxine 50 mcg tablet RxNorm: 775764 1 Tablet(s) PO daily 09/21/2016 10/12/2016 Inactive Invokana 300 mg tablet RxNorm: 6491582 1 Tablet(s) PO daily 09/21/2016 12/19/2016 Inactive metformin 1,000 mg t ablet RxNorm: 268085 TAKE 1 TABLET BY MOUT H TWICE A DAY 09/21/2016 11/25/2016 In active Generic For:*GLUCOPHAGE 1000MG 09/22/19 17 8:53:30 AM levothyroxine 200 mc g tablet RxNorm: 203785 1 Tablet(s) PO daily 09/21/2016 12/19/2016 Inactive Lipitor 40 mg tablet RxNorm: 958138 TAKE 1 TABLET BY MOUTH DAILY 06/23/2016 03/19/2017 Inactive Generic For:LIPITOR 40MG 06/23/2016 9:1 2:42 AM levothyroxine 50 mcg tablet RxNorm: 692113 1 Tablet(s) PO daily TAKE 1 TABLET BY MOUTH DAILY 06/23/2016 09/20/2016 Inactive Generic For:SYNTHROID 50MCG TAB 06/23/2016 9:22:58 AM metformin 1,000 mg t ablet RxNorm: 577378 TAKE 1 TABLET BY MOUT H TWICE A DAY 06/23/2016 09/20/2016 In active Generic For:*GLUCOPHAGE 1000MG 06/23/19 17 9:12:46 AM levothyroxine 200 mc g tablet RxNorm: 516590 1 Tablet(s) PO daily 04/24/2016 08/21/2016 Inactive naproxen 500 mg tablet RxNorm: 930189 1 Tablet(s) PO BID 03/26/2016 10/20/2016 Inactive levothyroxine 50 mcg tablet RxNorm: 795567 1 Tablet(s) PO daily 03/25/2016 06/23/2016 Inactive Flonase Allergy Reli ef 50 mcg/actuation nasal spray,suspension RxNorm: 4759998 1 Lynn NASAL BID 01/14/2016 No Stop Date Active prednisone 20 mg tablet RxNorm: 122156 2 Tablet(s) PO daily 01/14/2016 01/16/2016 Inactive Zithromax Z-Michael 250 mg tablet RxNorm: 289686 Tablet(s) PO 01/14/2016 02/25/2016 Inactive levothyroxine 200 mc g tablet RxNorm: 791257 1 Tablet(s) PO daily 11/25/2015 03/23/2016 Inactive levothyroxine 50 mcg tablet RxNorm: 751317 1 Tablet(s) PO daily 11/25/2015 03/23/2016 Inactive Invokana 300 mg tablet RxNorm: 9508406 1 Tablet(s) PO daily 11/25/2015 09/20/2016 Inactive metformin 1,000 mg t ablet RxNorm: 745972 TAKE 1 TABLET BY MOUT H TWICE A DAY 08/22/2015 05/17/2016 In active Generic For:*GLUCOPHAGE 1000MG N O T I C E PRESCRIPTION PREVIOUSLY AUTHORIZED BY DOCTOR:PEDRO SIMPSON levothyroxine 200 mc g tablet RxNorm: 507072 1 Tablet(s) PO daily 08/02/2015 11/24/2015 Inactive levothyroxine 25 mcg tablet RxNorm: 385112 1 Tablet(s) PO daily 08/02/2015 11/24/2015 Inactive levothyroxine 25 mcg tablet RxNorm: 617271 1 Tablet(s) PO daily 08/02/2015 08/01/2015 Inactive Zithromax Z-Michael 250 mg tablet RxNorm: 241352 Tablet(s) PO 07/31/2015 10/27/2015 Inactive naproxen 500 mg tablet RxNorm: 780686 1 Tablet(s) PO BID 07/31/2015 02/25/2016 Inactive Lipitor 40 mg tablet RxNorm: 516690 TAKE 1 TABLET BY MOUTH DAILY 05/26/2015 05/19/2016 Inactive Generic For:LIPITOR 40MG 05/25/2015 10: 36:19 AM levothyroxine 200 mc g tablet RxNorm: 474499 TAKE 1 TABLET ONCE DA SUKUMAR WITH 50MCG TABLET TO MAKE 250MCG. 05/26/2015 07/30/2015 Inactive Generic For:SYNTHROID 200MC G TAB 05/25/2015 10:36:11 AM Invokana 100 mg tablet RxNorm: 2401783 1 Tablet(s) PO daily 03/15/2015 03/14/2015 Inactive Invokana 100 mg tablet RxNorm: 3079656 1 Tablet(s) PO daily 03/15/2015 11/24/2015 Inactive naproxen 500 mg tablet RxNorm: 466639 1 Tablet(s) PO BID 03/13/2015 07/30/2015 Inactive metformin 1,000 mg t ablet RxNorm: 426581 1 Tablet(s) PO BID 03/13/2015 08/21/2015 Inactive levothyroxine 200 mc g tablet RxNorm: 199531 TAKE 1 TABLET ONCE DA SUKUMAR WITH 50MCG TABLET TO MAKE 250MCG. 02/12/2015 05/12/2015 Inactive Generic For:SYNTHROID 200MC G TAB 02/12/2015 11:50:50 AM Lipitor 40 mg tablet RxNorm: 970121 TAKE 1 TABLET BY MOUTH DAILY 02/12/2015 05/12/2015 Inactive Generic For:LIPITOR 40MG 02/12/2015 11: 50:55 AM levothyroxine 200 mc g tablet RxNorm: 631335 1 Tablet(s) PO daily 11/19/2014 02/11/2015 Inactive levothyroxine 200 mc g tablet RxNorm: 994237 1 Tablet(s) PO daily 11/19/2014 11/18/2014 Inactive Lipitor 40 mg tablet RxNorm: 009814 1 Tablet(s) PO daily call and make appt. 11/19/2014 02/11/2015 In active Lipitor 40 mg tablet RxNorm: 945362 1 Tablet(s) PO daily call and make appt. 11/15/2014 11/18/2014 In active Lipitor 40 mg tablet RxNorm: 035798 1 Tablet(s) PO daily call and make appt. 11/15/2014 11/14/2014 In active [place] with Iro n oral RxNorm: oral No Start D ate Active Vitamin B-12 1,000 m cg/mL injection solution RxNorm: 799382 1 Milliliter(s) Inj m onthly No Start Date Active levothyroxine 200 mc g tablet RxNorm: 931910 1 Tablet(s) PO daily No Start Date 08/01/2015 Inactive Medication Administered Medication Codes Instruc tions Start Date Status cyanocobalamin (vit B-12) 1,000 mcg/mL injection solut ion RxNorm: 256196 Milliliter 09/13/2018 No longer Active cyanocobalamin (vit B-12) 1,000 mcg/mL injection solut ion RxNorm: 374983 Milliliter 08/11/2018 No longer Active cyanocobalamin (vit B-12) 1,000 mcg/mL injection solut ion RxNorm: 450490 Milliliter 06/29/2018 No longer Active Kenalog 40 mg/mL suspension for injection RxNorm: 9419584 Milliliter 03/23/2018 No longer Active cyanocobalamin (vit B-12) 1,000 mcg/mL injection solut ion RxNorm: 675344 Milliliter 02/07/2018 No longer Active cyanocobalamin (vit B-12) 1,000 mcg/mL injection solut ion RxNorm: 339769 Milliliter 01/13/2018 No longer Active cyanocobalamin (vit B-12) 1,000 mcg/mL injection solut ion RxNorm: 321955 Milliliter 12/06/2017 No longer Active cyanocobalamin (vit B-12) 1,000 mcg/mL injection solut ion RxNorm: 343054 1Milliliter 11/01/2017 No longer Active cyanocobalamin (vit B-12) 1,000 mcg/mL injection solut ion RxNorm: 255131 1Milliliter 09/28/2017 No longer Active Immunizations Vaccine [...] D50.0 ICD-9: 280.0 09/27/2017 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: [...] Item Item Code Result Date Free T4 Qnm461 FREE T4 1.22 ng/dL 09/20/2018 Cbc With [...] 25.0 pg 09/20/2018 Cbc With Differential Ord2 [place]% 8.1 % 09/20/2018 Cbc With Differential Ord2 [...] 1.73 K/ul 09/20/2018 Cbc With Differential Ord2 [place] ABS# 0.8 K/ul 09/20/2018 Cbc With Differential Ord2 Eos ABS# 0.4 K/ul 09/20/2018 Cbc With Differential Ord2 Baso ABS# 0.1 K/ul 09/20/2018 Lipid Ord30 CHOL 176 mg/dL 09/20/2018 Lipid Ord30 HDL 55.0 mg/dl 09/20/2018 Lipid Ord30 TRIG 133 mg/dL 09/20/2018 Lipid Ord30 LDL 94 mg/dL 09/20/2018 Lipid Ord30 C/HDL 3.2 Ratio 09/20/2018 Comp Metabolic Wor568 NA 140 mEq/L 09/20/2018 Comp Metabolic Vjf347 K 4.4 mEq/L 09/20/2018 Comp Metabolic Lrz508 CL 104 mEq/L 09/20/2018 Comp Metabolic Qtd991 CO2 27.0 mEq/L 09/20/2018 Comp Metabolic Emz841 AN ION GAP 13 09/20/2018 Comp Metabolic Aed014 GL UCOSE 104 mg/dL 09/20/2018 Comp Metabolic Puo517 Cr eat 0.6 mg/dL 09/20/2018 Comp Metabolic Zgp303 eG FR 112 ml/min/1.73m2 07/2018 Comp Metabolic Pvv483 BUN 18 mg/dL 09/20/2018 Comp Metabolic Seu768 B/ C Ratio 29.5 Ratio 09/20/2018 Comp Metabolic Ktc825 CA LCIUM 9.4 mg/dL 09/20/2018 Comp Metabolic Xqp911 AL K PHOS 97 U/L 09/20/2018 Comp Metabolic Utl454 T(SGOT) 13 U/L 09/20/2018 Comp Metabolic Vad486 AL T(SGPT) 16 U/L 09/20/2018 Comp Metabolic Gkx090 BI LI T 0.2 mg/dL 09/20/2018 Comp Metabolic Xtk316 AL BUMIN 4.0 g/dL 09/20/2018 Comp Metabolic Pgm404 TP RO 7.0 g/dL 09/20/2018 Comp Metabolic Qha867 GL OB 3.0 g/dL 09/20/2018 Comp Metabolic Vsy869 A/ G Ratio 1.4 Ratio 09/20/2018 Comp Metabolic Avv345 Os mo 282 mOsmo 09/20/2018 %Hba1C Cbp821 % HbA1c 68354-7 6.6 % 09/20/2018 %Hba1C Xoe998 Gluc Ave 143 mg/dL 09/20/2018 Tsh Ord6 TSH (3rd IS) 1.85 uIU/mL 09/20/2018 Hgb & Hct Ord65 HGB 9.7 g/dl 10/06/2017 Hgb & Hct Ord65 HCT 33.5 % 10/06/2017 Hgb & Hct Ord65 HGB 8.6 g/dl 09/24/2017 Hgb & Hct Ord65 HCT 30.4 % 09/24/2017 B12 Scz278 B12 124.00 pg/ml 09/15/2017 Cbc With Differential [...] 20.0 pg 09/15/2017 Cbc With Differential Ord2 [place]% 7.7 % 09/15/2017 Cbc With Differential Ord2 [...] 1.94 K/ul 09/15/2017 Cbc With Differential Ord2 [place] ABS# 0.8 K/ul 09/15/2017 Cbc With Differential Ord2 Eos ABS# 0.5 K/ul 09/15/2017 Cbc With Differential Ord2 Baso ABS# 0.1 K/ul 09/15/2017 Tibc Ord40 Iron 21 ug/dl 09/15/2017 Tibc Ord40 UIBC 432 ug/dL 09/15/2017 Tibc Ord40 TIBC 453 ug/dL 09/15/2017 Tibc Ord40 Fe-%Sat 4.6 % 09/15/2017 Folate Ord36 Folate 15.31 ng/mL 09/15/2017 Ferritin Ord22 FERRITIN 4.3 ng/mL 09/15/2017 Free T4 Ypo979 FREE T4 0.88 ng/dL 09/10/2017 %Hba1C Nnj590 % HbA1c 00423-7 6.7 % 09/10/2017 %Hba1C Kjv051 Gluc Ave 146 mg/dL 09/10/2017 Cbc With [...] 20.5 pg 09/10/2017 Cbc With Differential Ord2 [place]% 8.0 % 09/10/2017 Cbc With Differential Ord2 [...] 2.10 K/ul 09/10/2017 Cbc With Differential Ord2 [place] ABS# 0.7 K/ul 09/10/2017 Cbc With Differential Ord2 Eos ABS# 0.5 K/ul 09/10/2017 Cbc With Differential Ord2 Baso ABS# 0.0 K/ul 09/10/2017 Comp Metabolic Pum435 NA 139 mEq/L 09/10/2017 Comp Metabolic Jzk517 K 4.6 mEq/L 09/10/2017 Comp Metabolic Zkw665 CL 103 mEq/L 09/10/2017 Comp Metabolic Hys701 CO2 28.0 mEq/L 09/10/2017 Comp Metabolic Cjy471 AN ION GAP 13 09/10/2017 Comp Metabolic Nel335 GL UCOSE 91 mg/dL 09/10/2017 Comp Metabolic Ouw901 Cr eat 0.6 mg/dL 09/10/2017 Comp Metabolic Pba512 eG FR 117 ml/min/1.73m2 08/20 Comp Metabolic Kgc072 BUN 22 mg/dL 09/10/2017 Comp Metabolic Kkk077 B/ C Ratio 37.3 Ratio 09/10/2017 Comp Metabolic Wkp071 CA LCIUM 9.6 mg/dL 09/10/2017 Comp Metabolic Okg986 AL K PHOS 100 U/L 09/10/2017 Comp Metabolic Gup390 T(SGOT) 12 U/L 09/10/2017 Comp Metabolic Cwk360 AL T(SGPT) 13 U/L 09/10/2017 Comp Metabolic Bpu553 BI LI T 0.2 mg/dL 09/10/2017 Comp Metabolic Zab360 AL BUMIN 3.9 g/dL 09/10/2017 Comp Metabolic Osv429 TP RO 7.0 g/dL 09/10/2017 Comp Metabolic Roc269 GL OB 3.1 g/dL 09/10/2017 Comp Metabolic Ruj261 A/ G Ratio 1.3 Ratio 09/10/2017 Comp Metabolic Zcm115 Os mo 280 mOsmo 09/10/2017 Tsh Ord6 TSH (3rd IS) 6.83 uIU/mL 09/10/2017 Free T4 Tsz950 FREE T4 1.53 ng/dL 04/07/2017 Tsh Ord6 hTSH II 0.55 uIU/mL 04/07/2017 Tsh Ord6 hTSH II 0.55 uIU/mL 12/30/2016 Free T4 Jgc838 FREE T4 1.15 ng/dL 12/30/2016 %Hba1C Hyd274 % HbA1c 64894-5 6.0 % 10/01/2016 %Hba1C Bvj236 Gluc Ave 126 mg/dL 10/01/2016 Tsh Ord6 hTSH II 0.19 uIU/mL 10/01/2016 Comp Metabolic Rxl068 NA 139 mEq/L 10/01/2016 Comp Metabolic Fbk936 K 4.6 mEq/L 10/01/2016 Comp Metabolic Tms817 CL 102 mEq/L 10/01/2016 Comp Metabolic Kgo525 CO2 28.0 mEq/L 10/01/2016 Comp Metabolic Shj819 AN ION GAP 14 10/01/2016 Comp Metabolic Blg986 GL UCOSE 93 mg/dL 10/01/2016 Comp Metabolic Dcw459 Cr eat 0.6 mg/dL 10/01/2016 Comp Metabolic Nqp561 eG FR 109 ml/min/1.73m2 09/19 Comp Metabolic Kek560 BUN 20 mg/dL 10/01/2016 Comp Metabolic Pxb667 B/ C Ratio 31.7 Ratio 10/01/2016 Comp Metabolic Axx377 CA LCIUM 9.8 mg/dL 10/01/2016 Comp Metabolic Jls387 AL K PHOS 114 U/L 10/01/2016 Comp Metabolic Usp606 T(SGOT) 11 U/L 10/01/2016 Comp Metabolic Fpv590 AL T(SGPT) 12 U/L 10/01/2016 Comp Metabolic Ijz010 BI LI T 0.4 mg/dL 10/01/2016 Comp Metabolic Wmz996 AL BUMIN 4.3 g/dL 10/01/2016 Comp Metabolic Wyc305 TP RO 7.2 g/dL 10/01/2016 Comp Metabolic Skl367 GL OB 2.9 g/dL 10/01/2016 Comp Metabolic Qqj041 A/ G Ratio 1.5 Ratio 10/01/2016 Comp Metabolic Zfz669 Os mo 280 mOsmo 10/01/2016 Free T4 Lkn145 FREE T4 1.37 ng/dL 10/01/2016 Lipid Ord30 [...] 27.9 pg 10/01/2016 Cbc With Differential Ord2 [place]% 8.5 % 10/01/2016 Cbc With Differential Ord2 [...] 1.69 K/ul 10/01/2016 Cbc With Differential Ord2 [place] ABS# 0.7 K/ul 10/01/2016 Cbc With Differential [...] 22.7 pg 04/06/2016 Cbc With Differential Ord2 [place]% 8.2 % 04/06/2016 Cbc With Differential Ord2 [...] 1.48 K/ul 04/06/2016 Cbc With Differential Ord2 [place] ABS# 0.5 K/ul 04/06/2016 Cbc With Differential Ord2 Eos ABS# 0.4 K/ul 04/06/2016 Cbc With Differential Ord2 Baso ABS# 0.0 K/ul 04/06/2016 Ferritin Ord22 FERRITIN 5.8 ng/mL 04/06/2016 Free T4 Bgy627 FREE T4 1.16 ng/dL 03/16/2016 %Hba1C Jfc775 % HbA1c 35050-7 7.0 % 03/16/2016 %Hba1C Zqj911 Gluc Ave 154 mg/dL 03/16/2016 Cbc With [...] 23.2 pg 03/16/2016 Cbc With Differential Ord2 [place]% 4.8 % 03/16/2016 Cbc With Differential Ord2 [...] 1.75 K/ul 03/16/2016 Cbc With Differential Ord2 [place] ABS# 0.6 K/ul 03/16/2016 Cbc With Differential Ord2 Eos ABS# 0.4 K/ul 03/16/2016 Cbc With Differential Ord2 Baso ABS# 0.0 K/ul 03/16/2016 Tsh Ord6 hTSH II 1.39 uIU/mL 03/16/2016 Tsh Ord6 hTSH II 10.28 uIU/mL 11/14/2015 Free T4 Qot942 FREE T4 0.79 ng/dL 11/14/2015 Lipid Ord30 [...] 24.4 pg 11/14/2015 Cbc With Differential Ord2 [place]% 6.6 % 11/14/2015 Cbc With Differential Ord2 [...] 1.72 K/ul 11/14/2015 Cbc With Differential Ord2 [place] ABS# 0.8 K/ul 11/14/2015 Cbc With Differential Ord2 Eos ABS# 0.4 K/ul 11/14/2015 Cbc With Differential Ord2 Baso ABS# 0.0 K/ul 11/14/2015 Comp Metabolic Mes508 NA 136 mEq/L 11/14/2015 Comp Metabolic Kui590 K 4.4 mEq/L 11/14/2015 Comp Metabolic Lnn997 CL 101 mEq/L 11/14/2015 Comp Metabolic Zft688 CO2 27.0 mEq/L 11/14/2015 Comp Metabolic Ogf785 AN ION GAP 12 11/14/2015 Comp Metabolic Tdv315 GL UCOSE 107 mg/dL 11/14/2015 Comp Metabolic Nnn806 Cr eat 0.6 mg/dL 11/14/2015 Comp Metabolic Uuh394 eG FR 125 ml/min/1.73m2 10/20 Comp Metabolic Rgr809 BUN 14 mg/dL 11/14/2015 Comp Metabolic Tpg081 B/ C Ratio 25.0 Ratio 11/14/2015 Comp Metabolic Glh198 CA LCIUM 9.6 mg/dL 11/14/2015 Comp Metabolic Upm034 AL K PHOS 104 U/L 11/14/2015 Comp Metabolic Bam341 T(SGOT) 16 U/L 11/14/2015 Comp Metabolic Bxj022 AL T(SGPT) 14 U/L 11/14/2015 Comp Metabolic Fdi339 BI LI T 0.3 mg/dL 11/14/2015 Comp Metabolic Jnh030 AL BUMIN 4.0 g/dL 11/14/2015 Comp Metabolic Vkd340 TP RO 7.2 g/dL 11/14/2015 Comp Metabolic Lnt642 GL OB 3.2 g/dL 11/14/2015 Comp Metabolic Wbh256 A/ G Ratio 1.3 Ratio 11/14/2015 Comp Metabolic Bgj610 Os mo 273 mOsmo 11/14/2015 %Hba1C Jxr128 % HbA1c 42793-9 7.0 % 11/14/2015 %Hba1C Lqh847 Gluc Ave 154 mg/dL 11/14/2015 Free T4 Yrt097 FREE T4 0.49 ng/dL 08/02/2015 Tsh Ord6 hTSH II 44.41 uIU/mL 07/31/2015 %Hba1C Xys282 % HbA1c 18175-0 6.7 % 07/31/2015 %Hba1C Prm522 Gluc Ave 146 mg/dL 07/31/2015 Cbc With [...] Differential Ord2 RDW 14.9 % 03/13/2015 %Hba1C Ccp129 % HbA1c 63819-7 6.8 % 03/13/2015 %Hba1C Lug650 Gluc Ave 148 mg/dL 03/13/2015 Tsh Ord6 hTSH II 0.95 uIU/mL 03/13/2015 Lipid Ord30 CHOL 146 mg/dL 03/13/2015 Lipid Ord30 HDL 40.0 mg/dl 03/13/2015 Lipid Ord30 TRIG 137 mg/dL 03/13/2015 Lipid Ord30 LDL 79 mg/dL 03/13/2015 Lipid Ord30 C/HDL 3.7 Ratio 03/13/2015 Comp Metabolic Pnx336 NA 135 mEq/L 03/13/2015 Comp Metabolic Oxl687 K 4.5 mEq/L 03/13/2015 Comp Metabolic Bgr302 CL 99 mEq/L 03/13/2015 Comp Metabolic Mcp569 CO2 29.0 mEq/L 03/13/2015 Comp Metabolic Qre966 AN ION GAP 12 03/13/2015 Comp Metabolic Mke931 GL UCOSE 98 mg/dL 03/13/2015 Comp Metabolic Bli495 Cr eat 0.7 mg/dL 03/13/2015 Comp Metabolic Spp417 eG FR 100 ml/min/1.73m2 02/20 Comp Metabolic Gxp595 BUN 13 mg/dL 03/13/2015 Comp Metabolic Xxi989 B/ C Ratio 19.1 Ratio 03/13/2015 Comp Metabolic Kik925 CA LCIUM 9.8 mg/dL 03/13/2015 Comp Metabolic Etc778 AL K PHOS 91 U/L 03/13/2015 Comp Metabolic Azh851 T(SGOT) 10 U/L 03/13/2015 Comp Metabolic Dsb803 AL T(SGPT) 10 U/L 03/13/2015 Comp Metabolic Jud823 BI LI T 0.4 mg/dL 03/13/2015 Comp Metabolic Lbc174 AL BUMIN 4.1 g/dL 03/13/2015 Comp Metabolic Bdt552 TP RO 6.9 g/dL 03/13/2015 Comp Metabolic Rom123 GL OB 2.8 g/dL 03/13/2015 Comp Metabolic Dha586 A/ G Ratio 1.5 Ratio 03/13/2015 Comp Metabolic Wug415 Os mo 270 mOsmo 03/13/2015 Free T4 Cmn843 FREE T4 1.25 ng/dL 03/13/2015 Review of [...] Procedure Codes Date THER/PROPH/DIAG INJ SC/IM CPT-4: 60676 09/13/2018 VITAMIN B12 INJECTION CPT-4: J3420 09/13/2018 THER/PROPH/DIAG INJ SC/IM CPT-4: 55278 08/11/2018 VITAMIN B12 INJECTION CPT-4: J3420 08/11/2018 THER/PROPH/DIAG INJ SC/IM CPT-4: 25407 06/29/2018 THER/PROPH/DIAG INJ SC/IM CPT-4: 88548 03/23/2018 VITAMIN B12 INJECTION CPT-4: J3420 03/23/2018 THER/PROPH/DIAG INJ SC/IM CPT-4: 50106 02/07/2018 VITAMIN B12 INJECTION CPT-4: J3420 02/07/2018 THER/PROPH/DIAG INJ SC/IM CPT-4: 97051 01/13/2018 VITAMIN B12 INJECTION CPT-4: J3420 01/13/2018 VITAMIN B12 INJECTION CPT-4: J3420 12/06/2017 THER/PROPH/DIAG INJ SC/IM CPT-4: 30948 12/06/2017 THER/PROPH/DIAG INJ SC/IM CPT-4: 77316 11/01/2017 VITAMIN B12 INJECTION CPT-4: J3420 11/01/2017 THER/PROPH/DIAG INJ SC/IM CPT-4: 54838 09/28/2017 VITAMIN B12 INJECTION CPT-4: J3420 09/28/2017 Vital Signs Date Vital 11/01/2017 Heigh t: 5'3" 09/10/2017 Blood Pressure 1: 136/70 Code: 8480-6 BMI: 44.6 Code: 16783-1 Heart Rate 1: 91 bpm Height: 5'3" SpO2: 96% Weight: 252 lbs 10/13/2016 Blood Pressure 1: 134/82 Code: 8480-6 BMI: 43.6 Code: 86480-5 Heart Rate 1: 97 bpm Height: 5'3" SpO2: 97% Weight: 246 lbs 01/14/2016 Blood Pressure 1: 132/78 Code: 8480-6 BMI: 45.7 Code: 65958-8 Heart Rate 1: 90 bpm Height: 5'3" SpO2: 98% Weight: 258 lbs 07/31/2015 Blood Pressure 1: 142/80 Code: 8480-6 BMI: 45.7 Code: 87056-7 Heart Rate 1: 78 bpm Height: 5'3" SpO2: 96% Weight: 258 lbs 04/04/2015 Blood Pressure 1: 130/82 Code: 8480-6 BMI: 44.9 Code: 82918-8 Heart Rate 1: 90 bpm Height: 5'3" SpO2: 96% Weight: 253 lbs 5 oz 03/13/2015 Blood Pressure 1: 140/86 Code: 8480-6 BMI: 45.2 Code: 38355-5 Heart Rate 1: 87 bpm Height: 5'3" SpO2: 93% Weight: 255 lbs Functional Status No Functional Status data History of Present Illness Symptom Name Status Resu lt Effective Date Notes hypothyroid Location at the level of the thyroid 09/10/2017 None hypothyroid Quality chrome plater jatin 09/10/2017 None hypothyroid Onset and Resolution [...] the thyroid 10/13/2016 None hypothyroid Quality chrome plater jatin 10/13/2016 None hypothyroid Onset and Resolution [...] the thyroid 07/31/2015 None hypothyroid Quality chrome plater jatin 07/31/2015 None hypothyroid Onset and Resolution [...] the thyroid 03/13/2015 None hypothyroid Quality chrome plater jatin 03/13/2015 None hypothyroid Onset and Resolution [...] Encounters Encounter Performer Loca tion Codes Date [id number] EST. 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 PATIENT, LEVEL IV Diagnosis: Other acute sinusitis[ICD10: J01.80] Diagnosis: Other allergic rhinitis[ICD10: J30.89] Diagnosis: Wheezing[ICD10: R06.2] Anyi Cano MD, [facility] CPT-4: 11328 01/14/2016 16246 EST. PATIENT, LEVEL IV Diagnosis: Other nursing home (current) drug therapy[ICD10: Z79.899] Diagnosis: Type 2 diabetes mellitus with hyperglycemia[ICD10: E11.65] Diagnosis: Other specified hypothyroidism[ICD10: E03.8] Diagnosis: Mixed hyperlipidemia[ICD10: E78.2] Anyi Cano MD, [facility] CPT-4: 04627 07/31/2015 ([id number]) 83514 EST. [facility], LEVEL III Diagnosis: Achilles tendinitis, left leg[ICD10: M76.62] Beba Cano MD, [facility] CPT-4: 04804 04/04/2015 ([id number]) OFFICE [facility], [facility] LEVEL 4 Diagnosis: HYPERLIPIDEMIA[ICD9: 272.4] Diagnosis: DIABETES TYPE II[ICD9: 250.00] Diagnosis: HYPOTHYROIDISM[ICD9: 244.9] Diagnosis: ACHILLES TENDINITIS[ICD9: 726.71] Beba Cano MD, [facility] CPT-4: 28850 03/13/2015 Plan of Care Planned Activity Notes C odes Status Date Patient Education: Patient Medication Summary Completed 09/19/2018 Appointment: Injection 09/13/2018 Patient Education: Patient Medication Summary Completed 09/13/2018 Appointment: Injection 08/11/2018 Patient Education: Patient Medication Summary Completed 08/11/2018 Appointment: Injection 06/29/2018 Patient Education: Patient Medication Summary Completed 06/29/2018 Patient Education: Patient Medication Summary Completed 04/05/2018 [facility] Pending 04/05/2018 Appointment: Injection 03/23/2018 Patient Education: Patient Medication Summary Completed 03/23/2018 Appointment: Injection 02/07/2018 Patient Education: Patient Medication Summary Completed 02/07/2018 Appointment: Injection 01/13/2018 Patient Education: Patient Medication Summary Completed 01/13/2018 Patient Education: Patient Medication Summary Completed 01/12/2018 Care Plan[facility] 62688-5 Pending 01/12/2018 Appointment: Injection 12/06/2017 Patient Education: [...] 09/14/2017 Care Plan: Referral Order SNOMED-CT : [id number] Pending 09/13/2017 Visit Plan: Diabetes Mellitus - [...] or pap done - will refer to [employer] due to pt symptoms and difficulty for exam - pt is to notify clinic with any changes or concerns. 09/10/2017 Appointment: Anyi Velázquez WPtel: [address] [place], [place] [id number] (15 min) Moderate 09/10/2017 Patient Education: Patient Medication Summary Completed 09/10/2017 Referral: Arvind Briseno [address] [facility] Referral Completed 10/27/2016 Referral: Arvind Briseno [facility] Referral Initiated 10/27/2016 Visit Plan: [...] of control. 10/13/2016 Appointment: Anyi Velázquez WPtel: [phone] (15 min) Moderate 10/13/2016 Patient Education: Patient Medication Summary Completed 10/13/2016 Care Plan: Referral Order SNOMED-CT : [id number] Pending 10/13/2016 Visit Plan: Sinusitis - Pt [...] allergy spray. 01/14/2016 Appointment: Melissa Newman WPtel: [phone] (30 min) Complex 01/14/2016 Patient Education: Patient [...] not improving. 04/04/2015 Appointment: Beba Cano WPtel: [id number] ([facility] min) Moderate 04/04/2015 Patient Education: Patient [...] appt. 03/13/2015 Appointment: Beba Cano WPtel: [phone] [phone] [place] ([place]) New Patient 03/13/2015 Patient Education: Patient Medication Summary Completed 03/13/2015 Patient Education: Hypertension Completed 03/13/2015 Patient Education: Patient Medication Summary Completed 10/24/2014 Referral: Katia Hunter WPtel: [address] [place] [address] they will call pt to schedule appt Initiated Referral: Katia Hunter WPtel: [address] [place] [address] Referral Initiated Referral: Arvind Briseno [address] [place] [address] Referral Initiated Instructions Comment . Sinusitis - [...] or pap done - will refer to [employer] due to pt symptoms and difficulty for [...]
--- OUTSIDE RECORDS SUMMARY | 2020-01-06 14:47 | XMS REPORT | CCD ---
Author Author Lucia Cano Organization Beba Cano MD, [facility] Address [address] [place] [address] Phone Care Team Providers Care Coordinator Of Online Programs Name Role Phone PP Unavailable CCM Unavailable Summary Purpose Interface Exchange Insurance Providers Payer name Policy type / Coverage type Covered libertarian ID Effective Begin Date Effective End Date WPS Medicare Part B Medicare Part B [id number] Unknown [employer] Better Health in [facility] Part B [id number] 2018 Unk nown Family history Father Diagnosis [...] employed [employer] 04/04/[address]: 449224999 Never smoker 04/04/[address]: 803200056 Never drinks alcohol 04/04/2015 Has the patient [...] ICD-9: V76.12 ICD-10: Z12.31 Active 11/03/2015 Unknown Type 2 diabetes jamal itus with hyperglycemia ICD-9: 250.00 ICD-10: E11.65 Active 07/30/2015 Unknown 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) ICD-9: 280.0 ICD-10: D50.0 Active 09/14/2017 Unknown Excessive and freque nt menstruation with irregular cycle ICD-9: 623.8 ICD-10: N92.1 Active 09/10/2017 Unknown 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 ICD-9: V58.69 ICD-10: Z79.899 Active 07/30/2015 Unknown Other specified hypo thyroidism ICD-9: 244.9 ICD-10: E03.8 Active 08/01/2015 Unknown Umbilical hernia wit hout obstruction or gangrene ICD-9: 553.1 ICD-10: K42.9 Active 10/13/2016 Unknown Mixed hyperlipidemia ICD-9: 272.4 ICD-10: E78.2 Active 07/30/2015 Unknown Other acute sinusitis ICD-9: 461.8 ICD-10: [...] breast ICD-9: V76.12 ICD-10: Z12.31 11/03/2015 Active Type 2 diabetes jamal itus with hyperglycemia ICD-9: 250.00 ICD-10: E11.65 07/30/2015 Active 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) ICD-9: 280.0 ICD-10: D50.0 09/14/2017 Active Excessive and freque nt menstruation with irregular cycle ICD-9: 623.8 ICD-10: N92.1 09/10/2017 Active 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 ICD-9: V58.69 ICD-10: Z79.899 07/30/2015 Active Other specified hypo thyroidism ICD-9: 244.9 ICD-10: E03.8 08/01/2015 Active Umbilical hernia wit hout obstruction or gangrene ICD-9: 553.1 ICD-10: K42.9 10/13/2016 Active Mixed hyperlipidemia ICD-9: 272.4 ICD-10: E78.2 07/30/2015 Active Other acute sinusitis ICD-9: 461.8 ICD-10: [...] (vit B-12) 1,000 mcg/mL injection solution RxNorm: 992527 Milliliter(s) Inj 09/13/2018 09/13/2018 Inactive cyanocobalamin (vit B-12) 1,000 mcg/mL injection solution RxNorm: 938457 Milliliter(s) Inj 08/11/2018 08/11/2018 Inactive naproxen 500 mg tablet RxNorm: 171991 TAKE 1 TABLET BY MOUTH TWICE DAILY 08/09/2018 11/06/2018 Ac tive Generic For:NAPROSYN 500MG 08/09/2018 1 1:14:27 AM N O T I C E Last quantity doesn't match original quantity levothyroxine 200 mc g tablet RxNorm: 367356 1 Tablet(s) PO daily to take with the 50mcg daily to equal 250mcg daily 07/19/2018 04/14/2019 Active cyanocobalamin (vit B-12) 1,000 mcg/mL injection solution RxNorm: 304379 Milliliter(s) Inj 06/29/2018 06/29/2018 Inactive naproxen 500 mg tablet RxNorm: 357086 TAKE 1 TABLET BY MOUTH TWICE DAILY 05/19/2018 08/08/2018 In active Generic For:NAPROSYN 500MG 05/19/2018 1 0:56:16 AM N O T I C E Last quantity doesn't match original quantity Kenalog 40 mg/mL debora pension for injection RxNorm: 6877240 Milliliter(s) Inj 03/23/2018 03/23/2018 In active levothyroxine 50 mcg tablet RxNorm: 263827 TAKE 1 TABLET BY MOUT H ONCE DAILY WITH 200MCG (250MCG TOTAL) 03/11/2018 06/08/2018 Inactive Generic For:SYNTHROID 50MCG TAB 03/11/2018 9:09:32 AM naproxen 500 mg tablet RxNorm: 938495 TAKE 1 TABLET BY MOUTH TWICE DAILY 02/25/2018 05/18/2018 In active Generic For:NAPROSYN 500MG 02/25/2018 1 2:39:53 PM N O T I C E Last quantity doesn't match original quantity cyanocobalamin (vit B-12) 1,000 mcg/mL injection solution RxNorm: 060262 Milliliter(s) Inj 02/07/2018 02/07/2018 Inactive metformin 1,000 mg t ablet RxNorm: 859074 TAKE 1 TABLET BY MOUT H TWICE A DAY 01/19/2018 01/13/2019 Ac tive Generic For:*GLUCOPHAGE 1000MG 01/20/20 10:20:50 AM cyanocobalamin (vit B-12) 1,000 mcg/mL injection solution RxNorm: 214748 Milliliter(s) Inj 01/13/2018 01/13/2018 Inactive cyanocobalamin (vit B-12) 1,000 mcg/mL injection solution RxNorm: 679415 Milliliter(s) Inj 12/06/2017 12/06/2017 Inactive Invokana 300 mg tablet RxNorm: 4746810 TAKE 1 TABLET BY MOUTH DAILY 11/08/2017 11/02/2018 Ac tive 11/05/2017 5:10:44 PM Lipitor 40 mg tablet RxNorm: 236311 TAKE 1 TABLET BY MOUTH DAILY 11/08/2017 11/02/2018 Active Generic For:LIPITOR 40MG 11/05/2017 5:1 0:24 PM naproxen 500 mg tablet RxNorm: 587548 TAKE 1 TABLET BY MOUTH TWICE DAILY 11/08/2017 02/05/2018 In active Generic For:NAPROSYN 500MG 11/08/2017 9 :14:56 AM N O T I C E Last quantity doesn't match original quantity levothyroxine 50 mcg tablet RxNorm: 634808 1 Tablet(s) PO daily to take with the 200mcg daily to equal 250mcg daily 11/08/2017 02/05/2018 Inactive cyanocobalamin (vit B-12) 1,000 mcg/mL injection solution RxNorm: 231579 1 Milliliter(s) Inj 11/01/2017 11/01/2017 Inactive cyanocobalamin (vit B-12) 1,000 mcg/mL injection solution RxNorm: 601753 1 Milliliter(s) Inj 09/28/2017 09/28/2017 Inactive levothyroxine 200 mc g tablet RxNorm: 453592 1 Tablet(s) PO daily to take with the 50mcg daily to equal 250mcg daily 09/14/2017 06/10/2018 Inactive levothyroxine 50 mcg tablet RxNorm: 910735 1 Tablet(s) PO daily to take with the 200mcg daily to equal 250mcg daily 09/14/2017 11/07/2017 Inactive naproxen 500 mg tablet RxNorm: 857480 TAKE 1 TABLET BY MOUTH TWICE DAILY 08/05/2017 11/02/2017 In active Generic For:NAPROSYN 500MG 08/05/2017 9 :04:47 AM N O T I C E Last quantity doesn't match original quantity naproxen 500 mg tablet RxNorm: 023201 TAKE 1 TABLET BY MOUTH TWICE DAILY 04/19/2017 08/04/2017 In active Generic For:NAPROSYN 500MG 04/19/2017 1 :49:28 PM Lipitor 40 mg tablet RxNorm: 247617 TAKE 1 TABLET BY MOUTH DAILY 03/22/2017 11/07/2017 Inactive Generic For:LIPITOR 40MG 03/20/2017 9:0 5:49 AM levothyroxine 25 mcg tablet RxNorm: 663412 1 Tablet(s) PO daily to take with her 200mcg to equal 225 mcg daily 03/22/2017 04/08/2017 Inactive Invokana 300 mg tablet RxNorm: 1377679 TAKE 1 TABLET BY MOUTH DAILY 12/21/2016 09/16/2017 In active 12/21/2016 9:03:03 AM levothyroxine 200 mc g tablet RxNorm: 821580 1 Tablet(s) PO daily 12/21/2016 09/13/2017 Inactive metformin 1,000 mg t ablet RxNorm: 411287 TAKE 1 TABLET BY MOUT H TWICE A DAY 11/26/2016 11/20/2017 In active Generic For:*GLUCOPHAGE 1000MG 11/27/19 17 1:05:15 PM naproxen 500 mg tablet RxNorm: 337387 1 Tablet(s) PO BID 10/21/2016 04/18/2017 Inactive levothyroxine 25 mcg tablet RxNorm: 247116 1 Tablet(s) PO daily to take with her 200mcg to equal 225 mcg daily 10/13/2016 01/10/2017 Inactive levothyroxine 50 mcg tablet RxNorm: 595481 1 Tablet(s) PO daily 09/21/2016 10/12/2016 Inactive Invokana 300 mg tablet RxNorm: 1143715 1 Tablet(s) PO daily 09/21/2016 12/19/2016 Inactive metformin 1,000 mg t ablet RxNorm: 025345 TAKE 1 TABLET BY MOUT H TWICE A DAY 09/21/2016 11/25/2016 In active Generic For:*GLUCOPHAGE 1000MG 09/22/19 17 8:53:30 AM levothyroxine 200 mc g tablet RxNorm: 537072 1 Tablet(s) PO daily 09/21/2016 12/19/2016 Inactive Lipitor 40 mg tablet RxNorm: 339135 TAKE 1 TABLET BY MOUTH DAILY 06/23/2016 03/19/2017 Inactive Generic For:LIPITOR 40MG 06/23/2016 9:1 2:42 AM levothyroxine 50 mcg tablet RxNorm: 628350 1 Tablet(s) PO daily TAKE 1 TABLET BY MOUTH DAILY 06/23/2016 09/20/2016 Inactive Generic For:SYNTHROID 50MCG TAB 06/23/2016 9:22:58 AM metformin 1,000 mg t ablet RxNorm: 576541 TAKE 1 TABLET BY MOUT H TWICE A DAY 06/23/2016 09/20/2016 In active Generic For:*GLUCOPHAGE 1000MG 06/23/19 17 9:12:46 AM levothyroxine 200 mc g tablet RxNorm: 880418 1 Tablet(s) PO daily 04/24/2016 08/21/2016 Inactive naproxen 500 mg tablet RxNorm: 846082 1 Tablet(s) PO BID 03/26/2016 10/20/2016 Inactive levothyroxine 50 mcg tablet RxNorm: 591017 1 Tablet(s) PO daily 03/25/2016 06/23/2016 Inactive Flonase Allergy Reli ef 50 mcg/actuation nasal spray,suspension RxNorm: 2471628 1 [place] NASAL BID 01/14/2016 No Stop Date Active prednisone 20 mg tablet RxNorm: 100204 2 Tablet(s) PO daily 01/14/2016 01/16/2016 Inactive Zithromax Z-Michael 250 mg tablet RxNorm: 999283 Tablet(s) PO 01/14/2016 02/25/2016 Inactive levothyroxine 200 mc g tablet RxNorm: 482293 1 Tablet(s) PO daily 11/25/2015 03/23/2016 Inactive levothyroxine 50 mcg tablet RxNorm: 577536 1 Tablet(s) PO daily 11/25/2015 03/23/2016 Inactive Invokana 300 mg tablet RxNorm: 5768577 1 Tablet(s) PO daily 11/25/2015 09/20/2016 Inactive metformin 1,000 mg t ablet RxNorm: 199721 TAKE 1 TABLET BY MOUT H TWICE A DAY 08/22/2015 05/17/2016 In active Generic For:*GLUCOPHAGE 1000MG N O T I C E PRESCRIPTION PREVIOUSLY AUTHORIZED BY DOCTOR:PEDRO SIMPSON levothyroxine 200 mc g tablet RxNorm: 888881 1 Tablet(s) PO daily 08/02/2015 11/24/2015 Inactive levothyroxine 25 mcg tablet RxNorm: 349166 1 Tablet(s) PO daily 08/02/2015 11/24/2015 Inactive levothyroxine 25 mcg tablet RxNorm: 313055 1 Tablet(s) PO daily 08/02/2015 08/01/2015 Inactive Zithromax Z-Michael 250 mg tablet RxNorm: 337125 Tablet(s) PO 07/31/2015 10/27/2015 Inactive naproxen 500 mg tablet RxNorm: 795778 1 Tablet(s) PO BID 07/31/2015 02/25/2016 Inactive Lipitor 40 mg tablet RxNorm: 022696 TAKE 1 TABLET BY MOUTH DAILY 05/26/2015 05/19/2016 Inactive Generic For:LIPITOR 40MG 05/25/2015 10: 36:19 AM levothyroxine 200 mc g tablet RxNorm: 330763 TAKE 1 TABLET ONCE DA SUKUMAR WITH 50MCG TABLET TO MAKE 250MCG. 05/26/2015 07/30/2015 Inactive Generic For:SYNTHROID 200MC G TAB 05/25/2015 10:36:11 AM Invokana 100 mg tablet RxNorm: 9720789 1 Tablet(s) PO daily 03/15/2015 03/14/2015 Inactive Invokana 100 mg tablet RxNorm: 3273921 1 Tablet(s) PO daily 03/15/2015 11/24/2015 Inactive naproxen 500 mg tablet RxNorm: 762929 1 Tablet(s) PO BID 03/13/2015 07/30/2015 Inactive metformin 1,000 mg t ablet RxNorm: 901146 1 Tablet(s) PO BID 03/13/2015 08/21/2015 Inactive levothyroxine 200 mc g tablet RxNorm: 214504 TAKE 1 TABLET ONCE DA SUKUMAR WITH 50MCG TABLET TO MAKE 250MCG. 02/12/2015 05/12/2015 Inactive Generic For:SYNTHROID 200MC G TAB 02/12/2015 11:50:50 AM Lipitor 40 mg tablet RxNorm: 322929 TAKE 1 TABLET BY MOUTH DAILY 02/12/2015 05/12/2015 Inactive Generic For:LIPITOR 40MG 02/12/2015 11: 50:55 AM levothyroxine 200 mc g tablet RxNorm: 748764 1 Tablet(s) PO daily 11/19/2014 02/11/2015 Inactive levothyroxine 200 mc g tablet RxNorm: 701553 1 Tablet(s) PO daily 11/19/2014 11/18/2014 Inactive Lipitor 40 mg tablet RxNorm: 787642 1 Tablet(s) PO daily call and make appt. 11/19/2014 02/11/2015 In active Lipitor 40 mg tablet RxNorm: 862571 1 Tablet(s) PO daily call and make appt. 11/15/2014 11/18/2014 In active Lipitor 40 mg tablet RxNorm: 299172 1 Tablet(s) PO daily call and make appt. 11/15/2014 11/14/2014 In active [place] with Iro n oral RxNorm: oral No Start D ate Active Vitamin B-12 1,000 m cg/mL injection solution RxNorm: 085921 1 Milliliter(s) Inj m onthly No Start Date Active levothyroxine 200 mc g tablet RxNorm: 221346 1 Tablet(s) PO daily No Start Date 08/01/2015 Inactive Medication Administered Medication Codes Instruc tions Start Date Status cyanocobalamin (vit B-12) 1,000 mcg/mL injection solut ion RxNorm: 080551 Milliliter 09/13/2018 Active cyanocobalamin (vit B-12) 1,000 mcg/mL injection solut ion RxNorm: 363303 Milliliter 08/11/2018 No longer Active cyanocobalamin (vit B-12) 1,000 mcg/mL injection solut ion RxNorm: 417914 Milliliter 06/29/2018 No longer Active Kenalog 40 mg/mL suspension for injection RxNorm: 1591927 Milliliter 03/23/2018 No longer Active cyanocobalamin (vit B-12) 1,000 mcg/mL injection solut ion RxNorm: 725021 Milliliter 02/07/2018 No longer Active cyanocobalamin (vit B-12) 1,000 mcg/mL injection solut ion RxNorm: 985347 Milliliter 01/13/2018 No longer Active cyanocobalamin (vit B-12) 1,000 mcg/mL injection solut ion RxNorm: 164755 Milliliter 12/06/2017 No longer Active cyanocobalamin (vit B-12) 1,000 mcg/mL injection solut ion RxNorm: 554973 1Milliliter 11/01/2017 No longer Active cyanocobalamin (vit B-12) 1,000 mcg/mL injection solut ion RxNorm: 085273 1Milliliter 09/28/2017 No longer Active Immunizations Vaccine Codes Date Status Influenza CVX: 141 03/21 completed Assessments Condition Codes Effectiv e Dates Other vitamin B12 deficiency anemias ICD-10: D51.8 ICD-9: 281.1 09/13/2018 Encounter for screening mammogram for ma lignant neoplasm of breast ICD-10: Z12.31 ICD-9: V76.12 04/05/2018 Type 2 diabetes mellitus with hyperglycemia ICD-10: E11.65 ICD-9: 250.00 02/07/2018 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 89 ICD-9: 477.8 01/14/2016 Wheezing ICD-10: R06.2 ICD-9: 786.07 01/14/2016 Mixed hyperlipidemia ICD-10: E78.2 ICD-9: 272.4 07/31/2015 [...] Hct Ord65 HCT 30.4 % 09/24/2017 B12 Srj384 B12 124.00 pg/ml 09/15/2017 Cbc With Differential [...] 20.0 pg 09/15/2017 Cbc With Differential Ord2 [place]% 7.7 % 09/15/2017 Cbc With Differential Ord2 [...] 1.94 K/ul 09/15/2017 Cbc With Differential Ord2 [place] ABS# 0.8 K/ul 09/15/2017 Cbc With Differential Ord2 Eos ABS# 0.5 K/ul 09/15/2017 Cbc With Differential Ord2 Baso ABS# 0.1 K/ul 09/15/2017 Tibc Ord40 Iron 21 ug/dl 09/15/2017 Tibc Ord40 UIBC 432 ug/dL 09/15/2017 Tibc Ord40 TIBC 453 ug/dL 09/15/2017 Tibc Ord40 Fe-%Sat 4.6 % 09/15/2017 Folate Ord36 Folate 15.31 ng/mL 09/15/2017 Ferritin Ord22 FERRITIN 4.3 ng/mL 09/15/2017 Free T4 Nqk180 FREE T4 0.88 ng/dL 09/10/2017 %Hba1C Xtv178 % HbA1c 12839-3 6.7 % 09/10/2017 %Hba1C Erp723 Gluc Ave 146 mg/dL 09/10/2017 Cbc With [...] 20.5 pg 09/10/2017 Cbc With Differential Ord2 [place]% 8.0 % 09/10/2017 Cbc With Differential Ord2 [...] 2.10 K/ul 09/10/2017 Cbc With Differential Ord2 [place] ABS# 0.7 K/ul 09/10/2017 Cbc With Differential Ord2 Eos ABS# 0.5 K/ul 09/10/2017 Cbc With Differential Ord2 Baso ABS# 0.0 K/ul 09/10/2017 Comp Metabolic Enj894 NA 139 mEq/L 09/10/2017 Comp Metabolic Njz897 K 4.6 mEq/L 09/10/2017 Comp Metabolic Ecp858 CL 103 mEq/L 09/10/2017 Comp Metabolic Alf725 CO2 28.0 mEq/L 09/10/2017 Comp Metabolic Ady049 AN ION GAP 13 09/10/2017 Comp Metabolic Xnn448 GL UCOSE 91 mg/dL 09/10/2017 Comp Metabolic Tqe900 Cr eat 0.6 mg/dL 09/10/2017 Comp Metabolic Fmi838 eG FR 117 ml/min/1.73m2 08/20 Comp Metabolic Xqv257 BUN 22 mg/dL 09/10/2017 Comp Metabolic Nml416 B/ C Ratio 37.3 Ratio 09/10/2017 Comp Metabolic Cdg493 CA LCIUM 9.6 mg/dL 09/10/2017 Comp Metabolic Kgm880 AL K PHOS 100 U/L 09/10/2017 Comp Metabolic Mzy483 T(SGOT) 12 U/L 09/10/2017 Comp Metabolic Cgs590 AL T(SGPT) 13 U/L 09/10/2017 Comp Metabolic Eux335 BI LI T 0.2 mg/dL 09/10/2017 Comp Metabolic Oea102 AL BUMIN 3.9 g/dL 09/10/2017 Comp Metabolic Dir520 TP RO 7.0 g/dL 09/10/2017 Comp Metabolic Xco573 GL OB 3.1 g/dL 09/10/2017 Comp Metabolic Xaz617 A/ G Ratio 1.3 Ratio 09/10/2017 Comp Metabolic Bjw511 Os mo 280 mOsmo 09/10/2017 Tsh Ord6 TSH (3rd IS) 6.83 uIU/mL 09/10/2017 Free T4 Kgw031 FREE T4 1.53 ng/dL 04/07/2017 Tsh Ord6 hTSH II 0.55 uIU/mL 04/07/2017 Tsh Ord6 hTSH II 0.55 uIU/mL 12/30/2016 Free T4 Ycc624 FREE T4 1.15 ng/dL 12/30/2016 %Hba1C Ecm366 % HbA1c 77152-4 6.0 % 10/01/2016 %Hba1C Jdy736 Gluc Ave 126 mg/dL 10/01/2016 Tsh Ord6 hTSH II 0.19 uIU/mL 10/01/2016 Comp Metabolic Obu937 NA 139 mEq/L 10/01/2016 Comp Metabolic Vgo580 K 4.6 mEq/L 10/01/2016 Comp Metabolic Zjd330 CL 102 mEq/L 10/01/2016 Comp Metabolic Dhj245 CO2 28.0 mEq/L 10/01/2016 Comp Metabolic Mcw069 AN ION GAP 14 10/01/2016 Comp Metabolic Lzi404 GL UCOSE 93 mg/dL 10/01/2016 Comp Metabolic Xay557 Cr eat 0.6 mg/dL 10/01/2016 Comp Metabolic Yqb283 eG FR 109 ml/min/1.73m2 09/19 Comp Metabolic Iyp134 BUN 20 mg/dL 10/01/2016 Comp Metabolic Xdt897 B/ C Ratio 31.7 Ratio 10/01/2016 Comp Metabolic Etf451 CA LCIUM 9.8 mg/dL 10/01/2016 Comp Metabolic Apk104 AL K PHOS 114 U/L 10/01/2016 Comp Metabolic Rbn573 T(SGOT) 11 U/L 10/01/2016 Comp Metabolic Qad505 AL T(SGPT) 12 U/L 10/01/2016 Comp Metabolic Liw985 BI LI T 0.4 mg/dL 10/01/2016 Comp Metabolic Hrc490 AL BUMIN 4.3 g/dL 10/01/2016 Comp Metabolic Jur992 TP RO 7.2 g/dL 10/01/2016 Comp Metabolic Xrl374 GL OB 2.9 g/dL 10/01/2016 Comp Metabolic Mpp070 A/ G Ratio 1.5 Ratio 10/01/2016 Comp Metabolic Bjv592 Os mo 280 mOsmo 10/01/2016 Free T4 Mup390 FREE T4 1.37 ng/dL 10/01/2016 Lipid Ord30 [...] 27.9 pg 10/01/2016 Cbc With Differential Ord2 [place]% 8.5 % 10/01/2016 Cbc With Differential Ord2 [...] 1.69 K/ul 10/01/2016 Cbc With Differential Ord2 [place] ABS# 0.7 K/ul 10/01/2016 Cbc With Differential [...] 22.7 pg 04/06/2016 Cbc With Differential Ord2 [place]% 8.2 % 04/06/2016 Cbc With Differential Ord2 [...] 1.48 K/ul 04/06/2016 Cbc With Differential Ord2 [place] ABS# 0.5 K/ul 04/06/2016 Cbc With Differential Ord2 Eos ABS# 0.4 K/ul 04/06/2016 Cbc With Differential Ord2 Baso ABS# 0.0 K/ul 04/06/2016 Ferritin Ord22 FERRITIN 5.8 ng/mL 04/06/2016 Free T4 Sug336 FREE T4 1.16 ng/dL 03/16/2016 %Hba1C Yey636 % HbA1c 32085-0 7.0 % 03/16/2016 %Hba1C Smi712 Gluc Ave 154 mg/dL 03/16/2016 Cbc With [...] 23.2 pg 03/16/2016 Cbc With Differential Ord2 [place]% 4.8 % 03/16/2016 Cbc With Differential Ord2 [...] 1.75 K/ul 03/16/2016 Cbc With Differential Ord2 [place] ABS# 0.6 K/ul 03/16/2016 Cbc With Differential Ord2 Eos ABS# 0.4 K/ul 03/16/2016 Cbc With Differential Ord2 Baso ABS# 0.0 K/ul 03/16/2016 Tsh Ord6 hTSH II 1.39 uIU/mL 03/16/2016 Tsh Ord6 hTSH II 10.28 uIU/mL 11/14/2015 Free T4 Qxq231 FREE T4 0.79 ng/dL 11/14/2015 Lipid Ord30 [...] 24.4 pg 11/14/2015 Cbc With Differential Ord2 [place]% 6.6 % 11/14/2015 Cbc With Differential Ord2 [...] 1.72 K/ul 11/14/2015 Cbc With Differential Ord2 [place] ABS# 0.8 K/ul 11/14/2015 Cbc With Differential Ord2 Eos ABS# 0.4 K/ul 11/14/2015 Cbc With Differential Ord2 Baso ABS# 0.0 K/ul 11/14/2015 Comp Metabolic Dwp251 NA 136 mEq/L 11/14/2015 Comp Metabolic Kni491 K 4.4 mEq/L 11/14/2015 Comp Metabolic Zgj851 CL 101 mEq/L 11/14/2015 Comp Metabolic Sus941 CO2 27.0 mEq/L 11/14/2015 Comp Metabolic Zuy951 AN ION GAP 12 11/14/2015 Comp Metabolic Rej259 GL UCOSE 107 mg/dL 11/14/2015 Comp Metabolic Bxt665 Cr eat 0.6 mg/dL 11/14/2015 Comp Metabolic Afd027 eG FR 125 ml/min/1.73m2 10/20 Comp Metabolic Vve983 BUN 14 mg/dL 11/14/2015 Comp Metabolic Cua931 B/ C Ratio 25.0 Ratio 11/14/2015 Comp Metabolic Txp863 CA LCIUM 9.6 mg/dL 11/14/2015 Comp Metabolic Fiu776 AL K PHOS 104 U/L 11/14/2015 Comp Metabolic Aoc136 T(SGOT) 16 U/L 11/14/2015 Comp Metabolic Uje274 AL T(SGPT) 14 U/L 11/14/2015 Comp Metabolic Jnw846 BI LI T 0.3 mg/dL 11/14/2015 Comp Metabolic Jde544 AL BUMIN 4.0 g/dL 11/14/2015 Comp Metabolic Nnx039 TP RO 7.2 g/dL 11/14/2015 Comp Metabolic Kee829 GL OB 3.2 g/dL 11/14/2015 Comp Metabolic Xzb276 A/ G Ratio 1.3 Ratio 11/14/2015 Comp Metabolic Vvo187 Os mo 273 mOsmo 11/14/2015 %Hba1C Dcd940 % HbA1c 26519-1 7.0 % 11/14/2015 %Hba1C Whh637 Gluc Ave 154 mg/dL 11/14/2015 Free T4 Xmo000 FREE T4 0.49 ng/dL 08/02/2015 Tsh Ord6 hTSH II 44.41 uIU/mL 07/31/2015 %Hba1C Gug636 % HbA1c 12752-1 6.7 % 07/31/2015 %Hba1C Vvu850 Gluc Ave 146 mg/dL 07/31/2015 Cbc With [...] Differential Ord2 RDW 14.9 % 03/13/2015 %Hba1C Lmg419 % HbA1c 91962-3 6.8 % 03/13/2015 %Hba1C Gls153 Gluc Ave 148 mg/dL 03/13/2015 Tsh Ord6 hTSH II 0.95 uIU/mL 03/13/2015 Lipid Ord30 CHOL 146 mg/dL 03/13/2015 Lipid Ord30 HDL 40.0 mg/dl 03/13/2015 Lipid Ord30 TRIG 137 mg/dL 03/13/2015 Lipid Ord30 LDL 79 mg/dL 03/13/2015 Lipid Ord30 C/HDL 3.7 Ratio 03/13/2015 Comp Metabolic Njd381 NA 135 mEq/L 03/13/2015 Comp Metabolic Eqb447 K 4.5 mEq/L 03/13/2015 Comp Metabolic Ubs787 CL 99 mEq/L 03/13/2015 Comp Metabolic Zlp082 CO2 29.0 mEq/L 03/13/2015 Comp Metabolic Rmt367 AN ION GAP 12 03/13/2015 Comp Metabolic Jkk353 GL UCOSE 98 mg/dL 03/13/2015 Comp Metabolic Hol364 Cr eat 0.7 mg/dL 03/13/2015 Comp Metabolic Iep022 eG FR 100 ml/min/1.73m2 02/20 Comp Metabolic Vvc813 BUN 13 mg/dL 03/13/2015 Comp Metabolic Yif217 B/ C Ratio 19.1 Ratio 03/13/2015 Comp Metabolic Jzw397 CA LCIUM 9.8 mg/dL 03/13/2015 Comp Metabolic Ftu889 AL K PHOS 91 U/L 03/13/2015 Comp Metabolic Sod193 T(SGOT) 10 U/L 03/13/2015 Comp Metabolic Syc871 AL T(SGPT) 10 U/L 03/13/2015 Comp Metabolic Alv817 BI LI T 0.4 mg/dL 03/13/2015 Comp Metabolic Efa504 AL BUMIN 4.1 g/dL 03/13/2015 Comp Metabolic Qbx077 TP RO 6.9 g/dL 03/13/2015 Comp Metabolic Eqn821 GL OB 2.8 g/dL 03/13/2015 Comp Metabolic Bcd808 A/ G Ratio 1.5 Ratio 03/13/2015 Comp Metabolic Gdt858 Os mo 270 mOsmo 03/13/2015 Free T4 Aya567 FREE T4 1.25 ng/dL 03/13/2015 Review of [...] Procedure Codes Date THER/PROPH/DIAG INJ SC/IM CPT-4: 61877 09/13/2018 VITAMIN B12 INJECTION CPT-4: J3420 09/13/2018 THER/PROPH/DIAG INJ SC/IM CPT-4: 43951 08/11/2018 VITAMIN B12 INJECTION CPT-4: J3420 08/11/2018 THER/PROPH/DIAG INJ SC/IM CPT-4: 34512 06/29/2018 THER/PROPH/DIAG INJ SC/IM CPT-4: 28609 03/23/2018 VITAMIN B12 INJECTION CPT-4: J3420 03/23/2018 THER/PROPH/DIAG INJ SC/IM CPT-4: 46875 02/07/2018 VITAMIN B12 INJECTION CPT-4: J3420 02/07/2018 THER/PROPH/DIAG INJ SC/IM CPT-4: 01703 01/13/2018 VITAMIN B12 INJECTION CPT-4: J3420 01/13/2018 VITAMIN B12 INJECTION CPT-4: J3420 12/06/2017 THER/PROPH/DIAG INJ SC/IM CPT-4: 84003 12/06/2017 THER/PROPH/DIAG INJ SC/IM CPT-4: 01058 11/01/2017 VITAMIN B12 INJECTION CPT-4: J3420 11/01/2017 THER/PROPH/DIAG INJ SC/IM CPT-4: 29569 09/28/2017 VITAMIN B12 INJECTION CPT-4: J3420 09/28/2017 Vital Signs Date Vital 11/01/2017 Heigh t: 5'3" 09/10/2017 Blood Pressure 1: 136/70 Code: 8480-6 BMI: 44.6 Code: 28501-3 Heart Rate 1: 91 bpm Height: 5'3" SpO2: 96% Weight: 252 lbs 10/13/2016 Blood Pressure 1: 134/82 Code: 8480-6 BMI: 43.6 Code: 28543-8 Heart Rate 1: 97 bpm Height: 5'3" SpO2: 97% Weight: 246 lbs 01/14/2016 Blood Pressure 1: 132/78 Code: 8480-6 BMI: 45.7 Code: 23987-6 Heart Rate 1: 90 bpm Height: 5'3" SpO2: 98% Weight: 258 lbs 07/31/2015 Blood Pressure 1: 142/80 Code: 8480-6 BMI: 45.7 Code: 63127-8 Heart Rate 1: 78 bpm Height: 5'3" SpO2: 96% Weight: 258 lbs 04/04/2015 Blood Pressure 1: 130/82 Code: 8480-6 BMI: 44.9 Code: 19869-9 Heart Rate 1: 90 bpm Height: 5'3" SpO2: 96% Weight: 253 lbs 5 oz 03/13/2015 Blood Pressure 1: 140/86 Code: 8480-6 BMI: 45.2 Code: 61982-7 Heart Rate 1: 87 bpm Height: 5'3" SpO2: 93% Weight: 255 lbs Functional Status No Functional Status data History of Present Illness Symptom Name Status Resu lt Effective Date Notes hypothyroid Location at the level of the thyroid 09/10/2017 None 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 PATIENT, LEVEL IV Diagnosis: Type 2 diabetes mellitus with hyperglycemia[ICD10: E11.65] Diagnosis: Other specified hypothyroidism[ICD10: E03.8] Diagnosis: Other half-way (current) drug therapy[ICD10: Z79.899] Diagnosis: Umbilical hernia without obstruction or gangrene[ICD10: K42.9] [facility] CPT-4: 76515 10/13/2016 [id number] EST. PATIENT, LEVEL IV Diagnosis: Other acute sinusitis[ICD10: J01.80] Diagnosis: Other allergic rhinitis[ICD10: J30.89] Diagnosis: Wheezing[ICD10: R06.2] Anyi Cano MD, [facility] CPT-4: 42765 01/14/2016 [id number] EST. PATIENT, LEVEL IV Diagnosis: Other half-way (current) drug therapy[ICD10: Z79.899] Diagnosis: Type 2 diabetes mellitus with hyperglycemia[ICD10: E11.65] Diagnosis: Other specified hypothyroidism[ICD10: E03.8] Diagnosis: Mixed hyperlipidemia[ICD10: E78.2] Anyi Cano MD, [facility] CPT-4: 43540 07/31/2015 ([id number]) [id number] EST. P ATIENT, LEVEL III Diagnosis: Achilles tendinitis, left leg[ICD10: M76.62] Beba Cano MD, [facility] CPT-4: 93829 04/04/2015 ([id number]) OFFICE VISI T, NEW - LEVEL 4 Diagnosis: HYPERLIPIDEMIA[ICD9: 272.4] Diagnosis: DIABETES TYPE II[ICD9: 250.00] Diagnosis: HYPOTHYROIDISM[ICD9: 244.9] Diagnosis: ACHILLES TENDINITIS[ICD9: 726.71] Beba Cano MD, [facility] CPT-4: 41533 03/13/2015 Plan of Care Planned Activity Notes C odes Status Date Patient Education: Patient Medication Summary Completed 09/13/2018 Appointment: Injection 08/11/2018 Patient Education: Patient Medication Summary Completed 08/11/2018 Appointment: Injection 06/29/2018 Patient Education: Patient Medication Summary Completed 06/29/2018 Patient Education: Patient Medication Summary Completed 04/05/2018 Care Plan: [facility] [id number] Pending 04/05/2018 Appointment: Injection 03/23/2018 Patient Education: Patient Medication Summary Completed 03/23/2018 Appointment: Injection 02/07/2018 Patient Education: Patient Medication Summary Completed 02/07/2018 Appointment: Injection 01/13/2018 Patient Education: Patient Medication Summary Completed 01/13/2018 Patient Education: Patient Medication Summary Completed 01/12/2018 Care Plan: [facility] [id number] Pending 01/12/2018 Appointment: Injection 12/06/2017 Patient Education: [...] 09/14/2017 Care Plan: Referral Order SNOMED-CT : [id number] Pending 09/13/2017 Visit Plan: Diabetes Mellitus - [...] or pap done - will refer to [facility] due to pt symptoms and difficulty for exam - pt is to notify clinic with any changes or concerns. 09/10/2017 Appointment: Anyi Velázquez WPtel: [phone] [id number] (15 min) Moderate 09/10/2017 Patient Education: Patient Medication Summary Completed 09/10/2017 Referral: Arvind Briseno [address] [facility] Referral Completed 10/27/2016 Referral: Arvind Briseno [address] [facility] Referral Initiated 10/27/2016 Visit Plan: [...] control. 10/13/2016 Appointment: Anyi Velázquez WPtel: [phone] [id number] (15 min) Moderate 10/13/2016 Patient Education: Patient Medication Summary Completed 10/13/2016 Care Plan: Referral Order SNOMED-CT : [id number] Pending 10/13/2016 Visit Plan: Sinusitis - Pt [...] spray. 01/14/2016 [facility]ment: [id number] (30 min) Complex 01/14/2016 Patient Education: [...] not improving. 04/04/2015 Appointment: Beba Cano WPtel: [id number] (15 min) Moderate 04/04/2015 Patient Education: Patient [...] appt. 03/13/2015 Appointment: Beba Cano WPtel: [phone] [facility] [place] ([place]) New Patient 03/13/2015 Patient Education: Patient Medication Summary Completed 03/13/2015 Patient Education: Hypertension Completed 03/13/2015 Patient Education: Patient Medication Summary Completed 10/24/2014 Referral: Katia Hunter WPtel: [facility] [address] they will call pt to schedule appt Initiated Referral: Katia Hunter WPtel: [facility] [address] Referral Initiated Referral: Arvind Briseno [address] [place] [address] Referral Initiated Instructions Comment . Achilles Tendoniti [...] or pap done - will refer to [facility] due to pt symptoms and difficulty for [...]
--- OUTSIDE RECORDS SUMMARY | 2020-01-06 14:48 | XMS REPORT | CCD ---
Author Author Lucia Cano Organization Beba Cano MD, [facility] Address [address] [place] [address] Phone Care Team Providers Care Lay Out Carpenter Name Role Phone PP Unavailable CCM Unavailable Summary Purpose Interface Exchange Insurance Providers Payer name Policy type / Coverage type Covered democrat ID Effective Begin Date Effective End Date WPS Medicare Part B Medicare Part B [id number] Unknown [employer] Better Health in [facility] Part B [id number] 2018 Unk nown Family history Father Diagnosis [...] employed [employer] 04/04/[address]: 924772275 Never smoker 04/04/[address]: 805310263 Never drinks alcohol 04/04/2015 Has the patient [...] 623.8 ICD-10: N92.1 Active 09/10/2017 Unknown Other long chain beamer (cur rent) drug therapy ICD-9: V58.69 ICD-10: [...] ICD-9: 623.8 ICD-10: N92.1 09/10/2017 Active Other long chain beamer (cur rent) drug therapy ICD-9: V58.69 ICD-10: [...] (vit B-12) 1,000 mcg/mL injection solution RxNorm: 534726 Milliliter(s) Inj 08/11/2018 08/11/2018 Inactive naproxen 500 mg tablet RxNorm: 654942 TAKE 1 TABLET BY MOUTH TWICE DAILY 08/09/2018 11/06/2018 Ac tive Generic For:NAPROSYN 500MG 08/09/2018 1 1:14:27 AM N O T I C E Last quantity doesn't match original quantity levothyroxine 200 mc g tablet RxNorm: 602716 1 Tablet(s) PO daily to take with the 50mcg daily to equal 250mcg daily 07/19/2018 04/14/2019 Active cyanocobalamin (vit B-12) 1,000 mcg/mL injection solution RxNorm: 260222 Milliliter(s) Inj 06/29/2018 06/29/2018 Inactive naproxen 500 mg tablet RxNorm: 243103 TAKE 1 TABLET BY MOUTH TWICE DAILY 05/19/2018 08/08/2018 In active Generic For:NAPROSYN 500MG 05/19/2018 1 0:56:16 AM N O T I C E Last quantity doesn't match original quantity Kenalog 40 mg/mL debora pension for injection RxNorm: 7871615 Milliliter(s) Inj 03/23/2018 03/23/2018 In active levothyroxine 50 mcg tablet RxNorm: 262034 TAKE 1 TABLET BY MOUT H ONCE DAILY WITH 200MCG (250MCG TOTAL) 03/11/2018 06/08/2018 Inactive Generic For:SYNTHROID 50MCG TAB 03/11/2018 9:09:32 AM naproxen 500 mg tablet RxNorm: 297450 TAKE 1 TABLET BY MOUTH TWICE DAILY 02/25/2018 05/18/2018 In active Generic For:NAPROSYN 500MG 02/25/2018 1 2:39:53 PM N O T I C E Last quantity doesn't match original quantity cyanocobalamin (vit B-12) 1,000 mcg/mL injection solution RxNorm: 965320 Milliliter(s) Inj 02/07/2018 02/07/2018 Inactive metformin 1,000 mg t ablet RxNorm: 944345 TAKE 1 TABLET BY MOUT H TWICE A DAY 01/19/2018 01/13/2019 Ac tive Generic For:*GLUCOPHAGE 1000MG 01/20/20 10:20:50 AM cyanocobalamin (vit B-12) 1,000 mcg/mL injection solution RxNorm: 721477 Milliliter(s) Inj 01/13/2018 01/13/2018 Inactive cyanocobalamin (vit B-12) 1,000 mcg/mL injection solution RxNorm: 172499 Milliliter(s) Inj 12/06/2017 12/06/2017 Inactive Invokana 300 mg tablet RxNorm: 3152188 TAKE 1 TABLET BY MOUTH DAILY 11/08/2017 11/02/2018 Ac tive 11/05/2017 5:10:44 PM Lipitor 40 mg tablet RxNorm: 437916 TAKE 1 TABLET BY MOUTH DAILY 11/08/2017 11/02/2018 Active Generic For:LIPITOR 40MG 11/05/2017 5:1 0:24 PM naproxen 500 mg tablet RxNorm: 567877 TAKE 1 TABLET BY MOUTH TWICE DAILY 11/08/2017 02/05/2018 In active Generic For:NAPROSYN 500MG 11/08/2017 9 :14:56 AM N O T I C E Last quantity doesn't match original quantity levothyroxine 50 mcg tablet RxNorm: 967223 1 Tablet(s) PO daily to take with the 200mcg daily to equal 250mcg daily 11/08/2017 02/05/2018 Inactive cyanocobalamin (vit B-12) 1,000 mcg/mL injection solution RxNorm: 292526 1 Milliliter(s) Inj 11/01/2017 11/01/2017 Inactive cyanocobalamin (vit B-12) 1,000 mcg/mL injection solution RxNorm: 418528 1 Milliliter(s) Inj 09/28/2017 09/28/2017 Inactive levothyroxine 200 mc g tablet RxNorm: 307500 1 Tablet(s) PO daily to take with the 50mcg daily to equal 250mcg daily 09/14/2017 06/10/2018 Inactive levothyroxine 50 mcg tablet RxNorm: 304921 1 Tablet(s) PO daily to take with the 200mcg daily to equal 250mcg daily 09/14/2017 11/07/2017 Inactive naproxen 500 mg tablet RxNorm: 525178 TAKE 1 TABLET BY MOUTH TWICE DAILY 08/05/2017 11/02/2017 In active Generic For:NAPROSYN 500MG 08/05/2017 9 :04:47 AM N O T I C E Last quantity doesn't match original quantity naproxen 500 mg tablet RxNorm: 795922 TAKE 1 TABLET BY MOUTH TWICE DAILY 04/19/2017 08/04/2017 In active Generic For:NAPROSYN 500MG 04/19/2017 1 :49:28 PM Lipitor 40 mg tablet RxNorm: 805615 TAKE 1 TABLET BY MOUTH DAILY 03/22/2017 11/07/2017 Inactive Generic For:LIPITOR 40MG 03/20/2017 9:0 5:49 AM levothyroxine 25 mcg tablet RxNorm: 645851 1 Tablet(s) PO daily to take with her 200mcg to equal 225 mcg daily 03/22/2017 04/08/2017 Inactive Invokana 300 mg tablet RxNorm: 4835244 TAKE 1 TABLET BY MOUTH DAILY 12/21/2016 09/16/2017 In active 12/21/2016 9:03:03 AM levothyroxine 200 mc g tablet RxNorm: 179260 1 Tablet(s) PO daily 12/21/2016 09/13/2017 Inactive metformin 1,000 mg t ablet RxNorm: 148345 TAKE 1 TABLET BY MOUT H TWICE A DAY 11/26/2016 11/20/2017 In active Generic For:*GLUCOPHAGE 1000MG 11/27/19 17 1:05:15 PM naproxen 500 mg tablet RxNorm: 252478 1 Tablet(s) PO BID 10/21/2016 04/18/2017 Inactive levothyroxine 25 mcg tablet RxNorm: 766324 1 Tablet(s) PO daily to take with her 200mcg to equal 225 mcg daily 10/13/2016 01/10/2017 Inactive levothyroxine 50 mcg tablet RxNorm: 470731 1 Tablet(s) PO daily 09/21/2016 10/12/2016 Inactive Invokana 300 mg tablet RxNorm: 2736298 1 Tablet(s) PO daily 09/21/2016 12/19/2016 Inactive metformin 1,000 mg t ablet RxNorm: 473381 TAKE 1 TABLET BY MOUT H TWICE A DAY 09/21/2016 11/25/2016 In active Generic For:*GLUCOPHAGE 1000MG 09/22/19 17 8:53:30 AM levothyroxine 200 mc g tablet RxNorm: 197893 1 Tablet(s) PO daily 09/21/2016 12/19/2016 Inactive Lipitor 40 mg tablet RxNorm: 437322 TAKE 1 TABLET BY MOUTH DAILY 06/23/2016 03/19/2017 Inactive Generic For:LIPITOR 40MG 06/23/2016 9:1 2:42 AM levothyroxine 50 mcg tablet RxNorm: 634197 1 Tablet(s) PO daily TAKE 1 TABLET BY MOUTH DAILY 06/23/2016 09/20/2016 Inactive Generic For:SYNTHROID 50MCG TAB 06/23/2016 9:22:58 AM metformin 1,000 mg t ablet RxNorm: 382520 TAKE 1 TABLET BY MOUT H TWICE A DAY 06/23/2016 09/20/2016 In active Generic For:*GLUCOPHAGE 1000MG 06/23/19 17 9:12:46 AM levothyroxine 200 mc g tablet RxNorm: 526276 1 Tablet(s) PO daily 04/24/2016 08/21/2016 Inactive naproxen 500 mg tablet RxNorm: 987194 1 Tablet(s) PO BID 03/26/2016 10/20/2016 Inactive levothyroxine 50 mcg tablet RxNorm: 490136 1 Tablet(s) PO daily 03/25/2016 06/23/2016 Inactive Flonase Allergy Reli ef 50 mcg/actuation nasal spray,suspension RxNorm: 3342892 1 [place] NASAL BID 01/14/2016 No Stop Date Active prednisone 20 mg tablet RxNorm: 349065 2 Tablet(s) PO daily 01/14/2016 01/16/2016 Inactive Zithromax Z-Michael 250 mg tablet RxNorm: 451413 Tablet(s) PO 01/14/2016 02/25/2016 Inactive levothyroxine 200 mc g tablet RxNorm: 789466 1 Tablet(s) PO daily 11/25/2015 03/23/2016 Inactive levothyroxine 50 mcg tablet RxNorm: 760754 1 Tablet(s) PO daily 11/25/2015 03/23/2016 Inactive Invokana 300 mg tablet RxNorm: 1533343 1 Tablet(s) PO daily 11/25/2015 09/20/2016 Inactive metformin 1,000 mg t ablet RxNorm: 536529 TAKE 1 TABLET BY MOUT H TWICE A DAY 08/22/2015 05/17/2016 In active Generic For:*GLUCOPHAGE 1000MG N O T I C E PRESCRIPTION PREVIOUSLY AUTHORIZED BY DOCTOR:PEDRO SIMPSON levothyroxine 200 mc g tablet RxNorm: 141556 1 Tablet(s) PO daily 08/02/2015 11/24/2015 Inactive levothyroxine 25 mcg tablet RxNorm: 419668 1 Tablet(s) PO daily 08/02/2015 11/24/2015 Inactive levothyroxine 25 mcg tablet RxNorm: 370502 1 Tablet(s) PO daily 08/02/2015 08/01/2015 Inactive Zithromax Z-Michael 250 mg tablet RxNorm: 668694 Tablet(s) PO 07/31/2015 10/27/2015 Inactive naproxen 500 mg tablet RxNorm: 718090 1 Tablet(s) PO BID 07/31/2015 02/25/2016 Inactive Lipitor 40 mg tablet RxNorm: 726922 TAKE 1 TABLET BY MOUTH DAILY 05/26/2015 05/19/2016 Inactive Generic For:LIPITOR 40MG 05/25/2015 10: 36:19 AM levothyroxine 200 mc g tablet RxNorm: 017460 TAKE 1 TABLET ONCE DA SUKUMAR WITH 50MCG TABLET TO MAKE 250MCG. 05/26/2015 07/30/2015 Inactive Generic For:SYNTHROID 200MC G TAB 05/25/2015 10:36:11 AM Invokana 100 mg tablet RxNorm: 8575880 1 Tablet(s) PO daily 03/15/2015 03/14/2015 Inactive Invokana 100 mg tablet RxNorm: 9682452 1 Tablet(s) PO daily 03/15/2015 11/24/2015 Inactive naproxen 500 mg tablet RxNorm: 338418 1 Tablet(s) PO BID 03/13/2015 07/30/2015 Inactive metformin 1,000 mg t ablet RxNorm: 805348 1 Tablet(s) PO BID 03/13/2015 08/21/2015 Inactive levothyroxine 200 mc g tablet RxNorm: 362175 TAKE 1 TABLET ONCE DA SUKUMAR WITH 50MCG TABLET TO MAKE 250MCG. 02/12/2015 05/12/2015 Inactive Generic For:SYNTHROID 200MC G TAB 02/12/2015 11:50:50 AM Lipitor 40 mg tablet RxNorm: 438376 TAKE 1 TABLET BY MOUTH DAILY 02/12/2015 05/12/2015 Inactive Generic For:LIPITOR 40MG 02/12/2015 11: 50:55 AM levothyroxine 200 mc g tablet RxNorm: 401048 1 Tablet(s) PO daily 11/19/2014 02/11/2015 Inactive levothyroxine 200 mc g tablet RxNorm: 524920 1 Tablet(s) PO daily 11/19/2014 11/18/2014 Inactive Lipitor 40 mg tablet RxNorm: 020005 1 Tablet(s) PO daily call and make appt. 11/19/2014 02/11/2015 In active Lipitor 40 mg tablet RxNorm: 200427 1 Tablet(s) PO daily call and make appt. 11/15/2014 11/18/2014 In active Lipitor 40 mg tablet RxNorm: 066073 1 Tablet(s) PO daily call and make appt. 11/15/2014 11/14/2014 In active [place] with Iro n oral RxNorm: oral No Start D ate Active Vitamin B-12 1,000 m cg/mL injection solution RxNorm: 410904 1 Milliliter(s) Inj m onthly No Start Date Active levothyroxine 200 mc g tablet RxNorm: 790214 1 Tablet(s) PO daily No Start Date 08/01/2015 Inactive Medication Administered Medication Codes Instruc tions Start Date Status cyanocobalamin (vit B-12) 1,000 mcg/mL injection solut ion RxNorm: 731291 Milliliter 08/11/2018 Active cyanocobalamin (vit B-12) 1,000 mcg/mL injection solut ion RxNorm: 218457 Milliliter 06/29/2018 No longer Active Kenalog 40 mg/mL suspension for injection RxNorm: 1398575 Milliliter 03/23/2018 No longer Active cyanocobalamin (vit B-12) 1,000 mcg/mL injection solut ion RxNorm: 792534 Milliliter 02/07/2018 No longer Active cyanocobalamin (vit B-12) 1,000 mcg/mL injection solut ion RxNorm: 196154 Milliliter 01/13/2018 No longer Active cyanocobalamin (vit B-12) 1,000 mcg/mL injection solut ion RxNorm: 184510 Milliliter 12/06/2017 No longer Active cyanocobalamin (vit B-12) 1,000 mcg/mL injection solut ion RxNorm: 324814 1Milliliter 11/01/2017 No longer Active cyanocobalamin (vit B-12) 1,000 mcg/mL injection solut ion RxNorm: 151211 1Milliliter 09/28/2017 No longer Active Immunizations Vaccine Codes Date Status Influenza CVX: 141 03/21 completed Assessments Condition Codes Effectiv e Dates Other vitamin B12 deficiency anemias ICD-10: D51.8 ICD-9: 281.1 08/11/2018 Encounter for screening mammogram for ma lignant neoplasm of breast ICD-10: Z12.31 ICD-9: V76.12 04/05/2018 Type 2 diabetes mellitus with hyperglycemia ICD-10: E11.65 ICD-9: 250.00 02/07/2018 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) ICD- 10: D50.0 ICD-9: 280.0 09/27/2017 Other long chain beamer (current) drug therapy ICD-10: Z79.899 ICD-9: V58.69 [...] Hct Ord65 HCT 30.4 % 09/24/2017 B12 Xuj733 B12 124.00 pg/ml 09/15/2017 Cbc With Differential Ord2 WBC 10.22 K/ul 09/15/2017 Cbc With Differential Ord2 RBC 4.40 M/ul 09/15/2017 Cbc With Differential Ord2 HGB 8.8 g/dl 09/15/2017 Cbc With Differential Ord2 Neut% 67.6 % 09/15/2017 Cbc With Differential Ord2 HCT 31.4 % 09/15/2017 Cbc With Differential Ord2 MCV 71.4 fl 09/15/2017 Cbc With Differential Ord2 Lymph% 19.0 % 09/15/2017 Cbc With Differential Ord2 [place]% 7.7 % 09/15/2017 Cbc With Differential Ord2 MCH 20.0 pg 09/15/2017 Cbc With Differential Ord2 MCHC 28.0 pg 09/15/2017 Cbc With Differential Ord2 Eos% 5.1 % 09/15/2017 Cbc With Differential Ord2 PLT 606 K/ul 09/15/2017 Cbc With Differential Ord2 Baso% 0.6 % 09/15/2017 Cbc With Differential Ord2 RDW 17.7 % 09/15/2017 Cbc With Differential Ord2 Neut ABS# 6.91 K/ul 09/15/2017 Cbc With Differential Ord2 Lymph ABS# 1.94 K/ul 09/15/2017 Cbc With Differential Ord2 [place] ABS# 0.8 K/ul 09/15/2017 Cbc With Differential Ord2 Eos ABS# 0.5 K/ul 09/15/2017 Cbc With Differential Ord2 Baso ABS# 0.1 K/ul 09/15/2017 Tibc Ord40 Iron 21 ug/dl 09/15/2017 Tibc Ord40 UIBC 432 ug/dL 09/15/2017 Tibc Ord40 TIBC 453 ug/dL 09/15/2017 Tibc Ord40 Fe-%Sat 4.6 % 09/15/2017 Folate Ord36 Folate 15.31 ng/mL 09/15/2017 Ferritin Ord22 FERRITIN 4.3 ng/mL 09/15/2017 Free T4 Lnh656 FREE T4 0.88 ng/dL 09/10/2017 %Hba1C Vmf399 % HbA1c 37683-0 6.7 % 09/10/2017 %Hba1C Ijt993 Gluc Ave 146 mg/dL 09/10/2017 Cbc With Differential Ord2 WBC 8.92 K/ul 09/10/2017 Cbc With Differential Ord2 RBC 4.19 M/ul 09/10/2017 Cbc With Differential Ord2 HGB 8.6 g/dl 09/10/2017 Cbc With Differential Ord2 Neut% 62.9 % 09/10/2017 Cbc With Differential Ord2 HCT 30.1 % 09/10/2017 Cbc With Differential Ord2 Lymph% 23.5 % 09/10/2017 Cbc With Differential Ord2 MCV 71.8 fl 09/10/2017 Cbc With Differential Ord2 MCH 20.5 pg 09/10/2017 Cbc With Differential Ord2 [place]% 8.0 % 09/10/2017 Cbc With Differential Ord2 [...] 2.10 K/ul 09/10/2017 Cbc With Differential Ord2 [place] ABS# 0.7 K/ul 09/10/2017 Cbc With Differential Ord2 Eos ABS# 0.5 K/ul 09/10/2017 Cbc With Differential Ord2 Baso ABS# 0.0 K/ul 09/10/2017 Comp Metabolic Yxp743 NA 139 mEq/L 09/10/2017 Comp Metabolic Jmy615 K 4.6 mEq/L 09/10/2017 Comp Metabolic Apj369 CL 103 mEq/L 09/10/2017 Comp Metabolic Zwj498 CO2 28.0 mEq/L 09/10/2017 Comp Metabolic Qgo344 AN ION GAP 13 09/10/2017 Comp Metabolic Abp053 GL UCOSE 91 mg/dL 09/10/2017 Comp Metabolic Flo110 Cr eat 0.6 mg/dL 09/10/2017 Comp Metabolic Fcl055 eG FR 117 ml/min/1.73m2 08/20 Comp Metabolic Tgq133 BUN 22 mg/dL 09/10/2017 Comp Metabolic Ssv680 B/ C Ratio 37.3 Ratio 09/10/2017 Comp Metabolic Jvq494 CA LCIUM 9.6 mg/dL 09/10/2017 Comp Metabolic Ewt172 AL K PHOS 100 U/L 09/10/2017 Comp Metabolic Gmt725 T(SGOT) 12 U/L 09/10/2017 Comp Metabolic Meq773 AL T(SGPT) 13 U/L 09/10/2017 Comp Metabolic Edv132 BI LI T 0.2 mg/dL 09/10/2017 Comp Metabolic Fhg186 AL BUMIN 3.9 g/dL 09/10/2017 Comp Metabolic Nay530 TP RO 7.0 g/dL 09/10/2017 Comp Metabolic Zlp092 GL OB 3.1 g/dL 09/10/2017 Comp Metabolic Kxq514 A/ G Ratio 1.3 Ratio 09/10/2017 Comp Metabolic Lwp463 Os mo 280 mOsmo 09/10/2017 Tsh Ord6 TSH (3rd IS) 6.83 uIU/mL 09/10/2017 Free T4 Brb588 FREE T4 1.53 ng/dL 04/07/2017 Tsh Ord6 hTSH II 0.55 uIU/mL 04/07/2017 Tsh Ord6 hTSH II 0.55 uIU/mL 12/30/2016 Free T4 Xtc913 FREE T4 1.15 ng/dL 12/30/2016 %Hba1C Myq981 % HbA1c 79720-6 6.0 % 10/01/2016 %Hba1C Dgl653 Gluc Ave 126 mg/dL 10/01/2016 Tsh Ord6 hTSH II 0.19 uIU/mL 10/01/2016 Comp Metabolic Pxd243 NA 139 mEq/L 10/01/2016 Comp Metabolic Zte202 K 4.6 mEq/L 10/01/2016 Comp Metabolic Wad145 CL 102 mEq/L 10/01/2016 Comp Metabolic Tru754 CO2 28.0 mEq/L 10/01/2016 Comp Metabolic Tod222 AN ION GAP 14 10/01/2016 Comp Metabolic Ozd368 GL UCOSE 93 mg/dL 10/01/2016 Comp Metabolic Imm535 Cr eat 0.6 mg/dL 10/01/2016 Comp Metabolic Pom408 eG FR 109 ml/min/1.73m2 09/19 Comp Metabolic Jsw898 BUN 20 mg/dL 10/01/2016 Comp Metabolic Obb977 B/ C Ratio 31.7 Ratio 10/01/2016 Comp Metabolic Cxf415 CA LCIUM 9.8 mg/dL 10/01/2016 Comp Metabolic Xvq216 AL K PHOS 114 U/L 10/01/2016 Comp Metabolic Nzn616 T(SGOT) 11 U/L 10/01/2016 Comp Metabolic Bot824 AL T(SGPT) 12 U/L 10/01/2016 Comp Metabolic Hem666 BI LI T 0.4 mg/dL 10/01/2016 Comp Metabolic Zzn910 AL BUMIN 4.3 g/dL 10/01/2016 Comp Metabolic Rsc325 TP RO 7.2 g/dL 10/01/2016 Comp Metabolic Xqu468 GL OB 2.9 g/dL 10/01/2016 Comp Metabolic Cdj856 A/ G Ratio 1.5 Ratio 10/01/2016 Comp Metabolic Egf408 Os mo 280 mOsmo 10/01/2016 Free T4 Kva379 FREE T4 1.37 ng/dL 10/01/2016 Lipid Ord30 [...] 88.4 fl 10/01/2016 Cbc With Differential Ord2 [place]% 8.5 % 10/01/2016 Cbc With Differential Ord2 MCH 27.9 pg 10/01/2016 Cbc With Differential Ord2 MCHC 31.6 pg 10/01/2016 Cbc With Differential Ord2 Eos% 4.5 % 10/01/2016 Cbc With Differential Ord2 Baso% 0.6 % 10/01/2016 Cbc With Differential Ord2 PLT 405 K/ul 10/01/2016 Cbc With Differential Ord2 Neut ABS# 4.97 K/ul 10/01/2016 Cbc With Differential Ord2 RDW 14.9 % 10/01/2016 Cbc With Differential Ord2 Lymph ABS# 1.69 K/ul 10/01/2016 Cbc With Differential Ord2 [place] ABS# 0.7 K/ul 10/01/2016 Cbc With Differential [...] 75.3 fl 04/06/2016 Cbc With Differential Ord2 [place]% 8.2 % 04/06/2016 Cbc With Differential Ord2 [...] 1.48 K/ul 04/06/2016 Cbc With Differential Ord2 [place] ABS# 0.5 K/ul 04/06/2016 Cbc With Differential Ord2 Eos ABS# 0.4 K/ul 04/06/2016 Cbc With Differential Ord2 Baso ABS# 0.0 K/ul 04/06/2016 Ferritin Ord22 FERRITIN 5.8 ng/mL 04/06/2016 Free T4 Kwf938 FREE T4 1.16 ng/dL 03/16/2016 %Hba1C Vnj638 % HbA1c 60944-4 7.0 % 03/16/2016 %Hba1C Gdl370 Gluc Ave 154 mg/dL 03/16/2016 Cbc With [...] 76.8 fl 03/16/2016 Cbc With Differential Ord2 [place]% 4.8 % 03/16/2016 Cbc With Differential Ord2 MCH 23.2 pg 03/16/2016 Cbc With Differential Ord2 Eos% 3.1 % 03/16/2016 Cbc With Differential Ord2 MCHC 30.2 pg 03/16/2016 Cbc With Differential Ord2 Baso% 0.3 % 03/16/2016 Cbc With Differential Ord2 PLT 463 K/ul 03/16/2016 Cbc With Differential Ord2 RDW 16.8 % 03/16/2016 Cbc With Differential Ord2 Neut ABS# 10.31 K/ul 03/16/2016 Cbc With Differential Ord2 Lymph ABS# 1.75 K/ul 03/16/2016 Cbc With Differential Ord2 [place] ABS# 0.6 K/ul 03/16/2016 Cbc With Differential Ord2 Eos ABS# 0.4 K/ul 03/16/2016 Cbc With Differential Ord2 Baso ABS# 0.0 K/ul 03/16/2016 Tsh Ord6 hTSH II 1.39 uIU/mL 03/16/2016 Tsh Ord6 hTSH II 10.28 uIU/mL 11/14/2015 Free T4 Fwz747 FREE T4 0.79 ng/dL 11/14/2015 Lipid Ord30 [...] 24.4 pg 11/14/2015 Cbc With Differential Ord2 [place]% 6.6 % 11/14/2015 Cbc With Differential Ord2 [...] 1.72 K/ul 11/14/2015 Cbc With Differential Ord2 [place] ABS# 0.8 K/ul 11/14/2015 Cbc With Differential Ord2 Eos ABS# 0.4 K/ul 11/14/2015 Cbc With Differential Ord2 Baso ABS# 0.0 K/ul 11/14/2015 Comp Metabolic Tpy509 NA 136 mEq/L 11/14/2015 Comp Metabolic Ehp672 K 4.4 mEq/L 11/14/2015 Comp Metabolic Pqf889 CL 101 mEq/L 11/14/2015 Comp Metabolic Iqt136 CO2 27.0 mEq/L 11/14/2015 Comp Metabolic Yze765 AN ION GAP 12 11/14/2015 Comp Metabolic Jhs092 GL UCOSE 107 mg/dL 11/14/2015 Comp Metabolic Mcp595 Cr eat 0.6 mg/dL 11/14/2015 Comp Metabolic Hvt127 eG FR 125 ml/min/1.73m2 10/20 Comp Metabolic Ezb710 BUN 14 mg/dL 11/14/2015 Comp Metabolic Ioh584 B/ C Ratio 25.0 Ratio 11/14/2015 Comp Metabolic Twf124 CA LCIUM 9.6 mg/dL 11/14/2015 Comp Metabolic Oww578 AL K PHOS 104 U/L 11/14/2015 Comp Metabolic Ceq643 T(SGOT) 16 U/L 11/14/2015 Comp Metabolic Rib603 AL T(SGPT) 14 U/L 11/14/2015 Comp Metabolic Rnh039 BI LI T 0.3 mg/dL 11/14/2015 Comp Metabolic Pde551 AL BUMIN 4.0 g/dL 11/14/2015 Comp Metabolic Gkt276 TP RO 7.2 g/dL 11/14/2015 Comp Metabolic Uyk751 GL OB 3.2 g/dL 11/14/2015 Comp Metabolic Xjf142 A/ G Ratio 1.3 Ratio 11/14/2015 Comp Metabolic Gsc530 Os mo 273 mOsmo 11/14/2015 %Hba1C Ihd028 % HbA1c 26927-7 7.0 % 11/14/2015 %Hba1C Wtx165 Gluc Ave 154 mg/dL 11/14/2015 Free T4 Ovw524 FREE T4 0.49 ng/dL 08/02/2015 Tsh Ord6 hTSH II 44.41 uIU/mL 07/31/2015 %Hba1C Abn927 % HbA1c 59999-1 6.7 % 07/31/2015 %Hba1C Fpf967 Gluc Ave 146 mg/dL 07/31/2015 Cbc With [...] Differential Ord2 RDW 14.9 % 03/13/2015 %Hba1C Dco363 % HbA1c 74744-7 6.8 % 03/13/2015 %Hba1C Oqh336 Gluc Ave 148 mg/dL 03/13/2015 Tsh Ord6 hTSH II 0.95 uIU/mL 03/13/2015 Lipid Ord30 CHOL 146 mg/dL 03/13/2015 Lipid Ord30 HDL 40.0 mg/dl 03/13/2015 Lipid Ord30 TRIG 137 mg/dL 03/13/2015 Lipid Ord30 LDL 79 mg/dL 03/13/2015 Lipid Ord30 C/HDL 3.7 Ratio 03/13/2015 Comp Metabolic Wsn799 NA 135 mEq/L 03/13/2015 Comp Metabolic Yjs144 K 4.5 mEq/L 03/13/2015 Comp Metabolic Qoy980 CL 99 mEq/L 03/13/2015 Comp Metabolic Ksm633 CO2 29.0 mEq/L 03/13/2015 Comp Metabolic Ppl840 AN ION GAP 12 03/13/2015 Comp Metabolic Pgt134 GL UCOSE 98 mg/dL 03/13/2015 Comp Metabolic Yas546 Cr eat 0.7 mg/dL 03/13/2015 Comp Metabolic Zjf919 eG FR 100 ml/min/1.73m2 02/20 Comp Metabolic Dos735 BUN 13 mg/dL 03/13/2015 Comp Metabolic Mqm873 B/ C Ratio 19.1 Ratio 03/13/2015 Comp Metabolic Hfe152 CA LCIUM 9.8 mg/dL 03/13/2015 Comp Metabolic Kmn658 AL K PHOS 91 U/L 03/13/2015 Comp Metabolic Abq730 T(SGOT) 10 U/L 03/13/2015 Comp Metabolic Rdf749 AL T(SGPT) 10 U/L 03/13/2015 Comp Metabolic Qbm704 BI LI T 0.4 mg/dL 03/13/2015 Comp Metabolic Sqy521 AL BUMIN 4.1 g/dL 03/13/2015 Comp Metabolic Kqz220 TP RO 6.9 g/dL 03/13/2015 Comp Metabolic Suk311 GL OB 2.8 g/dL 03/13/2015 Comp Metabolic Rjk237 A/ G Ratio 1.5 Ratio 03/13/2015 Comp Metabolic Ohl654 Os mo 270 mOsmo 03/13/2015 Free T4 Vhr470 FREE T4 1.25 ng/dL 03/13/2015 Review of [...] Procedure Codes Date THER/PROPH/DIAG INJ SC/IM CPT-4: 46488 08/11/2018 VITAMIN B12 INJECTION CPT-4: J3420 08/11/2018 THER/PROPH/DIAG INJ SC/IM CPT-4: 65854 06/29/2018 THER/PROPH/DIAG INJ SC/IM CPT-4: 91896 03/23/2018 VITAMIN B12 INJECTION CPT-4: J3420 03/23/2018 THER/PROPH/DIAG INJ SC/IM CPT-4: 30465 02/07/2018 VITAMIN B12 INJECTION CPT-4: J3420 02/07/2018 THER/PROPH/DIAG INJ SC/IM CPT-4: 78086 01/13/2018 VITAMIN B12 INJECTION CPT-4: J3420 01/13/2018 VITAMIN B12 INJECTION CPT-4: J3420 12/06/2017 THER/PROPH/DIAG INJ SC/IM CPT-4: 37529 12/06/2017 THER/PROPH/DIAG INJ SC/IM CPT-4: 70530 11/01/2017 VITAMIN B12 INJECTION CPT-4: J3420 11/01/2017 THER/PROPH/DIAG INJ SC/IM CPT-4: 26104 09/28/2017 VITAMIN B12 INJECTION CPT-4: J3420 09/28/2017 Vital Signs Date Vital 11/01/2017 Heigh t: 5'3" 09/10/2017 Blood Pressure 1: 136/70 Code: 8480-6 BMI: 44.6 Code: 35005-7 Heart Rate 1: 91 bpm Height: 5'3" SpO2: 96% Weight: 252 lbs 10/13/2016 Blood Pressure 1: 134/82 Code: 8480-6 BMI: 43.6 Code: 11642-9 Heart Rate 1: 97 bpm Height: 5'3" SpO2: 97% Weight: 246 lbs 01/14/2016 Blood Pressure 1: 132/78 Code: 8480-6 BMI: 45.7 Code: 86508-9 Heart Rate 1: 90 bpm Height: 5'3" SpO2: 98% Weight: 258 lbs 07/31/2015 Blood Pressure 1: 142/80 Code: 8480-6 BMI: 45.7 Code: 03294-4 Heart Rate 1: 78 bpm Height: 5'3" SpO2: 96% Weight: 258 lbs 04/04/2015 Blood Pressure 1: 130/82 Code: 8480-6 BMI: 44.9 Code: 67261-2 Heart Rate 1: 90 bpm Height: 5'3" SpO2: 96% Weight: 253 lbs 5 oz 03/13/2015 Blood Pressure 1: 140/86 Code: 8480-6 BMI: 45.2 Code: 81868-4 Heart Rate 1: 87 bpm Height: 5'3" SpO2: 93% Weight: 255 lbs Functional Status No Functional Status data History of Present Illness Symptom Name Status Resu lt Effective Date Notes hypothyroid Location at the level of the thyroid 09/10/2017 None hypothyroid Quality rivet heater gas jatin 09/10/2017 None hypothyroid Onset and Resolution [...] of the thyroid 10/13/2016 None hypothyroid Quality rivet heater gas jatin 10/13/2016 None hypothyroid Onset and Resolution [...] of the thyroid 07/31/2015 None hypothyroid Quality rivet heater gas jatin 07/31/2015 None hypothyroid Onset and Resolution [...] of the thyroid 03/13/2015 None hypothyroid Quality rivet heater gas jatin 03/13/2015 None hypothyroid Onset and Resolution [...] Encounters Encounter Performer Loca tion Codes Date [id number] EST. PATIENT, LEVEL IV Diagnosis: Excessive and frequent menstruation with irregular cycle[ICD10: N92.1] Diagnosis: Type 2 diabetes mellitus with hyperglycemia[ICD10: E11.65] Diagnosis: Other specified hypothyroidism[ICD10: E03.8] Diagnosis: Other custodial (current) drug therapy[ICD10: Z79.899] Anyi Cano MD, [facility] CPT-4: 68892 09/10/2017 [id number] EST. PATIENT, LEVEL IV Diagnosis: Type 2 diabetes mellitus with hyperglycemia[ICD10: E11.65] Diagnosis: Other specified hypothyroidism[ICD10: E03.8] Diagnosis: Other long chain beamer (current) drug therapy[ICD10: Z79.899] Diagnosis: Umbilical hernia without obstruction or gangrene[ICD10: K42.9] Anyi Cano MD, [facility] CPT-4: 43635 10/13/2016 [id number] EST. PATIENT, LEVEL IV Diagnosis: Other acute sinusitis[ICD10: J01.80] Diagnosis: Other allergic rhinitis[ICD10: J30.89] Diagnosis: Wheezing[ICD10: R06.2] Anyi Cano MD, [facility] CPT-4: 68812 01/14/2016 [id number] EST. PATIENT, LEVEL IV Diagnosis: Other custodial (current) drug therapy[ICD10: Z79.899] Diagnosis: Type 2 diabetes mellitus with hyperglycemia[ICD10: E11.65] Diagnosis: Other specified hypothyroidism[ICD10: E03.8] Diagnosis: Mixed hyperlipidemia[ICD10: E78.2] Anyi Cano MD, [facility] CPT-4: 24981 07/31/2015 ([id number]) [id number] EST. P ATIENT, LEVEL III Diagnosis: Achilles tendinitis, left leg[ICD10: M76.62] Beba Cano MD, C CPT-4: 69705 04/04/2015 ([id number]) OFFICE VISI T, NEW - LEVEL 4 Diagnosis: HYPERLIPIDEMIA[ICD9: 272.4] Diagnosis: DIABETES TYPE II[ICD9: 250.00] Diagnosis: HYPOTHYROIDISM[ICD9: 244.9] Diagnosis: ACHILLES TENDINITIS[ICD9: 726.71] Beba Cano MD, [facility] CPT-4: 01642 03/13/2015 Plan of Care Planned Activity Notes C odes Status Date Patient Education: Patient Medication Summary Completed 08/11/2018 Appointment: Injection 06/29/2018 Patient Education: Patient Medication Summary Completed 06/29/2018 Patient Education: Patient Medication Summary Completed 04/05/2018 [facility] 41467-4 Pending 04/05/2018 Appointment: Injection 03/23/2018 Patient Education: Patient Medication Summary Completed 03/23/2018 Appointment: Injection 02/07/2018 Patient Education: Patient Medication Summary Completed 02/07/2018 Appointment: Injection 01/13/2018 Patient Education: Patient Medication Summary Completed 01/13/2018 Patient Education: Patient Medication Summary Completed 01/12/2018 Care Plan: [facility] : 07783-5 Pending 01/12/2018 Appointment: Injection 12/06/2017 Patient Education: [...] 09/14/2017 Care Plan: Referral Order SNOMED-CT : [id number] Pending 09/13/2017 Visit Plan: Diabetes Mellitus - [...] or pap done - will refer to [facility] due to pt symptoms and difficulty for exam - pt is to notify clinic with any changes or concerns. 09/10/2017 App[facility]ment: [id number] ([facility] min) Moderate 09/10/2017 Patient Education: Patient Medication Summary Completed 09/10/2017 Referral: Arvind Briseno [address] [facility] Referral Completed 10/27/2016 Referral: Arvind Briseno [facility] Referral Initiated 10/27/2016 Visit Plan: [...] control. 10/13/2016 Appointment: Anyi Velázquez [phone] (15 min) Moderate 10/13/2016 Patient Education: Patient Medication Summary Completed 10/13/2016 Care Plan: Referral Order SNOMED-CT : [id number] Pending 10/13/2016 Visit Plan: Sinusitis - Pt [...] spray. 01/14/2016 Appointment: Melissa Newman WPtel: [address] [place], [place] [phone] (30 min) Complex 01/14/2016 Patient Education: Patient [...] not improving. 04/04/2015 [id number] ([facility] min) Moderate 04/04/2015 Patient Education: [...] appt. 03/13/2015 Appointment: Beba Cano WPtel: [phone] [facility] [place] ([place]) New Patient 03/13/2015 Patient Education: Patient Medication Summary Completed 03/13/2015 Patient Education: Hypertension Completed 03/13/2015 Patient Education: Patient Medication Summary Completed 10/24/2014 Referral: Katia Hunter WPtel: [address] [place] [address] they will call pt to schedule appt Initiated Referral: Katia Hunter WPtel: [facility] Referral Initiated Referral: Arvind Briseno [facility] [address] [facility] Referral Initiated Instructions Comment . Umbilical hernia - will refer to [...] or pap done - will refer to [facility] due to pt symptoms and difficulty for exam - pt is to notify clinic with any changes or concerns. . Achilles Tendoniti s - Recommended pt [...]
--- OUTSIDE RECORDS SUMMARY | 2020-01-06 14:49 | XMS REPORT | CCD ---
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 Name Role Phone PP Unavailable CCM Unavailable Summary Purpose Interface Exchange Insurance Providers Payer name Policy type / Coverage type Covered democrat ID Effective Begin Date Effective End Date WPS Medicare Part B Medicare Part B [id number] Unknown [employer] Better Health in [facility] Part B [id number] 2018 Unk nown Family history Father Diagnosis [...] employed [employer] 04/04/[address]: 675409046 Never smoker 04/04/[address]: 185581554 Never drinks alcohol 04/04/2015 Has the patient [...] 623.8 ICD-10: N92.1 Active 09/10/2017 Unknown 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 ICD-9: V58.69 [...] ICD-9: 623.8 ICD-10: N92.1 09/10/2017 Active 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 ICD-9: V58.69 [...] Fill Instructions naproxen 500 mg tablet RxNorm: 795952 TAKE 1 TABLET BY MOUTH TWICE DAILY 08/09/2018 11/06/2018 Ac tive Generic For:NAPROSYN 500MG 08/09/2018 1 1:14:27 AM N O T I C E Last quantity doesn't match original quantity levothyroxine 200 mc g tablet RxNorm: 694842 1 Tablet(s) PO daily to take with the 50mcg daily to equal 250mcg daily 07/19/2018 04/14/2019 Active cyanocobalamin (vit B-12) 1,000 mcg/mL injection solution RxNorm: 672246 Milliliter(s) Inj 06/29/2018 06/29/2018 Inactive naproxen 500 mg tablet RxNorm: 289956 TAKE 1 TABLET BY MOUTH TWICE DAILY 05/19/2018 08/08/2018 In active Generic For:NAPROSYN 500MG 05/19/2018 1 0:56:16 AM N O T I C E Last quantity doesn't match original quantity Kenalog 40 mg/mL debora pension for injection RxNorm: 4132633 Milliliter(s) Inj 03/23/2018 03/23/2018 In active levothyroxine 50 mcg tablet RxNorm: 917896 TAKE 1 TABLET BY MOUT H ONCE DAILY WITH 200MCG (250MCG TOTAL) 03/11/2018 06/08/2018 Inactive Generic For:SYNTHROID 50MCG TAB 03/11/2018 9:09:32 AM naproxen 500 mg tablet RxNorm: 328783 TAKE 1 TABLET BY MOUTH TWICE DAILY 02/25/2018 05/18/2018 In active Generic For:NAPROSYN 500MG 02/25/2018 1 2:39:53 PM N O T I C E Last quantity doesn't match original quantity cyanocobalamin (vit B-12) 1,000 mcg/mL injection solution RxNorm: 510069 Milliliter(s) Inj 02/07/2018 02/07/2018 Inactive metformin 1,000 mg t ablet RxNorm: 419693 TAKE 1 TABLET BY MOUT H TWICE A DAY 01/19/2018 01/13/2019 Ac tive Generic For:*GLUCOPHAGE 1000MG 01/20/20 10:20:50 AM cyanocobalamin (vit B-12) 1,000 mcg/mL injection solution RxNorm: 108665 Milliliter(s) Inj 01/13/2018 01/13/2018 Inactive cyanocobalamin (vit B-12) 1,000 mcg/mL injection solution RxNorm: 361713 Milliliter(s) Inj 12/06/2017 12/06/2017 Inactive Invokana 300 mg tablet RxNorm: 5100028 TAKE 1 TABLET BY MOUTH DAILY 11/08/2017 11/02/2018 Ac tive 11/05/2017 5:10:44 PM Lipitor 40 mg tablet RxNorm: 997774 TAKE 1 TABLET BY MOUTH DAILY 11/08/2017 11/02/2018 Active Generic For:LIPITOR 40MG 11/05/2017 5:1 0:24 PM naproxen 500 mg tablet RxNorm: 702150 TAKE 1 TABLET BY MOUTH TWICE DAILY 11/08/2017 02/05/2018 In active Generic For:NAPROSYN 500MG 11/08/2017 9 :14:56 AM N O T I C E Last quantity doesn't match original quantity levothyroxine 50 mcg tablet RxNorm: 160020 1 Tablet(s) PO daily to take with the 200mcg daily to equal 250mcg daily 11/08/2017 02/05/2018 Inactive cyanocobalamin (vit B-12) 1,000 mcg/mL injection solution RxNorm: 587910 1 Milliliter(s) Inj 11/01/2017 11/01/2017 Inactive cyanocobalamin (vit B-12) 1,000 mcg/mL injection solution RxNorm: 435753 1 Milliliter(s) Inj 09/28/2017 09/28/2017 Inactive levothyroxine 200 mc g tablet RxNorm: 190680 1 Tablet(s) PO daily to take with the 50mcg daily to equal 250mcg daily 09/14/2017 06/10/2018 Inactive levothyroxine 50 mcg tablet RxNorm: 535780 1 Tablet(s) PO daily to take with the 200mcg daily to equal 250mcg daily 09/14/2017 11/07/2017 Inactive naproxen 500 mg tablet RxNorm: 008170 TAKE 1 TABLET BY MOUTH TWICE DAILY 08/05/2017 11/02/2017 In active Generic For:NAPROSYN 500MG 08/05/2017 9 :04:47 AM N O T I C E Last quantity doesn't match original quantity naproxen 500 mg tablet RxNorm: 500669 TAKE 1 TABLET BY MOUTH TWICE DAILY 04/19/2017 08/04/2017 In active Generic For:NAPROSYN 500MG 04/19/2017 1 :49:28 PM Lipitor 40 mg tablet RxNorm: 581798 TAKE 1 TABLET BY MOUTH DAILY 03/22/2017 11/07/2017 Inactive Generic For:LIPITOR 40MG 03/20/2017 9:0 5:49 AM levothyroxine 25 mcg tablet RxNorm: 837897 1 Tablet(s) PO daily to take with her 200mcg to equal 225 mcg daily 03/22/2017 04/08/2017 Inactive Invokana 300 mg tablet RxNorm: 7752794 TAKE 1 TABLET BY MOUTH DAILY 12/21/2016 09/16/2017 In active 12/21/2016 9:03:03 AM levothyroxine 200 mc g tablet RxNorm: 901230 1 Tablet(s) PO daily 12/21/2016 09/13/2017 Inactive metformin 1,000 mg t ablet RxNorm: 847333 TAKE 1 TABLET BY MOUT H TWICE A DAY 11/26/2016 11/20/2017 In active Generic For:*GLUCOPHAGE 1000MG 11/27/19 17 1:05:15 PM naproxen 500 mg tablet RxNorm: 661687 1 Tablet(s) PO BID 10/21/2016 04/18/2017 Inactive levothyroxine 25 mcg tablet RxNorm: 655162 1 Tablet(s) PO daily to take with her 200mcg to equal 225 mcg daily 10/13/2016 01/10/2017 Inactive levothyroxine 50 mcg tablet RxNorm: 467784 1 Tablet(s) PO daily 09/21/2016 10/12/2016 Inactive Invokana 300 mg tablet RxNorm: 2203160 1 Tablet(s) PO daily 09/21/2016 12/19/2016 Inactive metformin 1,000 mg t ablet RxNorm: 528302 TAKE 1 TABLET BY MOUT H TWICE A DAY 09/21/2016 11/25/2016 In active Generic For:*GLUCOPHAGE 1000MG 09/22/19 17 8:53:30 AM levothyroxine 200 mc g tablet RxNorm: 701436 1 Tablet(s) PO daily 09/21/2016 12/19/2016 Inactive Lipitor 40 mg tablet RxNorm: 594561 TAKE 1 TABLET BY MOUTH DAILY 06/23/2016 03/19/2017 Inactive Generic For:LIPITOR 40MG 06/23/2016 9:1 2:42 AM levothyroxine 50 mcg tablet RxNorm: 170692 1 Tablet(s) PO daily TAKE 1 TABLET BY MOUTH DAILY 06/23/2016 09/20/2016 Inactive Generic For:SYNTHROID 50MCG TAB 06/23/2016 9:22:58 AM metformin 1,000 mg t ablet RxNorm: 707915 TAKE 1 TABLET BY MOUT H TWICE A DAY 06/23/2016 09/20/2016 In active Generic For:*GLUCOPHAGE 1000MG 06/23/19 9:12:46 AM levothyroxine 200 mc g tablet RxNorm: 113791 1 Tablet(s) PO daily 04/24/2016 08/21/2016 Inactive naproxen 500 mg tablet RxNorm: 901183 1 Tablet(s) PO BID 03/26/2016 10/20/2016 Inactive levothyroxine 50 mcg tablet RxNorm: 543485 1 Tablet(s) PO daily 03/25/2016 06/23/2016 Inactive Flonase Allergy Reli ef 50 mcg/actuation nasal spray,suspension RxNorm: 5156702 1 [place] NASAL BID 01/14/2016 No Stop Date Active prednisone 20 mg tablet RxNorm: 134043 2 Tablet(s) PO daily 01/14/2016 01/16/2016 Inactive Zithromax Z-Michael 250 mg tablet RxNorm: 659226 Tablet(s) PO 01/14/2016 02/25/2016 Inactive levothyroxine 200 mc g tablet RxNorm: 900777 1 Tablet(s) PO daily 11/25/2015 03/23/2016 Inactive levothyroxine 50 mcg tablet RxNorm: 928521 1 Tablet(s) PO daily 11/25/2015 03/23/2016 Inactive Invokana 300 mg tablet RxNorm: 3736820 1 Tablet(s) PO daily 11/25/2015 09/20/2016 Inactive metformin 1,000 mg t ablet RxNorm: 001680 TAKE 1 TABLET BY MOUT H TWICE A DAY 08/22/2015 05/17/2016 In active Generic For:*GLUCOPHAGE 1000MG N O T I C E PRESCRIPTION PREVIOUSLY AUTHORIZED BY DOCTOR:PEDRO SIMPSON levothyroxine 200 mc g tablet RxNorm: 317733 1 Tablet(s) PO daily 08/02/2015 11/24/2015 Inactive levothyroxine 25 mcg tablet RxNorm: 081514 1 Tablet(s) PO daily 08/02/2015 11/24/2015 Inactive levothyroxine 25 mcg tablet RxNorm: 828754 1 Tablet(s) PO daily 08/02/2015 08/01/2015 Inactive Zithromax Z-Michael 250 mg tablet RxNorm: 371982 Tablet(s) PO 07/31/2015 10/27/2015 Inactive naproxen 500 mg tablet RxNorm: 131873 1 Tablet(s) PO BID 07/31/2015 02/25/2016 Inactive Lipitor 40 mg tablet RxNorm: 651521 TAKE 1 TABLET BY MOUTH DAILY 05/26/2015 05/19/2016 Inactive Generic For:LIPITOR 40MG 05/25/2015 10: 36:19 AM levothyroxine 200 mc g tablet RxNorm: 561322 TAKE 1 TABLET ONCE DA SUKUMAR WITH 50MCG TABLET TO MAKE 250MCG. 05/26/2015 07/30/2015 Inactive Generic For:SYNTHROID 200MC G TAB 05/25/2015 10:36:11 AM Invokana 100 mg tablet RxNorm: 1194050 1 Tablet(s) PO daily 03/15/2015 03/14/2015 Inactive Invokana 100 mg tablet RxNorm: 2884575 1 Tablet(s) PO daily 03/15/2015 11/24/2015 Inactive naproxen 500 mg tablet RxNorm: 528380 1 Tablet(s) PO BID 03/13/2015 07/30/2015 Inactive metformin 1,000 mg t ablet RxNorm: 478356 1 Tablet(s) PO BID 03/13/2015 08/21/2015 Inactive levothyroxine 200 mc g tablet RxNorm: 453538 TAKE 1 TABLET ONCE DA SUKUMAR WITH 50MCG TABLET TO MAKE 250MCG. 02/12/2015 05/12/2015 Inactive Generic For:SYNTHROID 200MC G TAB 02/12/2015 11:50:50 AM Lipitor 40 mg tablet RxNorm: 241546 TAKE 1 TABLET BY MOUTH DAILY 02/12/2015 05/12/2015 Inactive Generic For:LIPITOR 40MG 02/12/2015 11: 50:55 AM levothyroxine 200 mc g tablet RxNorm: 768961 1 Tablet(s) PO daily 11/19/2014 02/11/2015 Inactive levothyroxine 200 mc g tablet RxNorm: 101249 1 Tablet(s) PO daily 11/19/2014 11/18/2014 Inactive Lipitor 40 mg tablet RxNorm: 674103 1 Tablet(s) PO daily call and make appt. 11/19/2014 02/11/2015 In active Lipitor 40 mg tablet RxNorm: 163190 1 Tablet(s) PO daily call and make appt. 11/15/2014 11/18/2014 In active Lipitor 40 mg tablet RxNorm: 261196 1 Tablet(s) PO daily call and make appt. 11/15/2014 11/14/2014 In active Flintstones with Iro n oral RxNorm: oral No Start D ate Active Vitamin B-12 1,000 m cg/mL injection solution RxNorm: 528486 1 Milliliter(s) Inj m onthly No Start Date Active levothyroxine 200 mc g tablet RxNorm: 110462 1 Tablet(s) PO daily No Start Date 08/01/2015 Inactive Medication Administered Medication Codes Instruc tions Start Date Status cyanocobalamin (vit B-12) 1,000 mcg/mL injection solut ion RxNorm: 593218 Milliliter 06/29/2018 No longer Active Kenalog 40 mg/mL suspension for injection RxNorm: 0785993 Milliliter 03/23/2018 No longer Active cyanocobalamin (vit B-12) 1,000 mcg/mL injection solut ion RxNorm: 264526 Milliliter 02/07/2018 No longer Active cyanocobalamin (vit B-12) 1,000 mcg/mL injection solut ion RxNorm: 433688 Milliliter 01/13/2018 No longer Active cyanocobalamin (vit B-12) 1,000 mcg/mL injection solut ion RxNorm: 917314 Milliliter 12/06/2017 No longer Active cyanocobalamin (vit B-12) 1,000 mcg/mL injection solut ion RxNorm: 626258 1Milliliter 11/01/2017 No longer Active cyanocobalamin (vit B-12) 1,000 mcg/mL injection solut ion RxNorm: 912907 1Milliliter 09/28/2017 No longer Active Immunizations Vaccine Codes Date Status Influenza CVX: 141 03/21 completed Assessments Condition Codes Effectiv e Dates Other vitamin B12 deficiency anemias ICD-10: D51.8 ICD-9: 281.1 06/29/2018 Encounter for screening mammogram for ma lignant neoplasm of breast ICD-10: Z12.31 ICD-9: V76.12 04/05/2018 Type 2 diabetes mellitus with hyperglycemia ICD-10: E11.65 ICD-9: 250.00 02/07/2018 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) ICD- 10: D50.0 ICD-9: 280.0 09/27/2017 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 ICD-10: Z79.899 ICD-9: [...] Hct Ord65 HCT 30.4 % 09/24/2017 B12 Ybc867 B12 124.00 pg/ml 09/15/2017 Cbc With Differential [...] 19.0 % 09/15/2017 Cbc With Differential Ord2 Camp% 7.7 % 09/15/2017 Cbc With Differential Ord2 [...] 1.94 K/ul 09/15/2017 Cbc With Differential Ord2 Camp ABS# 0.8 K/ul 09/15/2017 Cbc With Differential Ord2 Eos ABS# 0.5 K/ul 09/15/2017 Cbc With Differential Ord2 Baso ABS# 0.1 K/ul 09/15/2017 Tibc Ord40 Iron 21 ug/dl 09/15/2017 Tibc Ord40 UIBC 432 ug/dL 09/15/2017 Tibc Ord40 TIBC 453 ug/dL 09/15/2017 Tibc Ord40 Fe-%Sat 4.6 % 09/15/2017 Folate Ord36 Folate 15.31 ng/mL 09/15/2017 Ferritin Ord22 FERRITIN 4.3 ng/mL 09/15/2017 Free T4 Zmw272 FREE T4 0.88 ng/dL 09/10/2017 %Hba1C Tzu429 % HbA1c 52081-6 6.7 % 09/10/2017 %Hba1C Luy654 Gluc Ave 146 mg/dL 09/10/2017 Cbc With [...] 20.5 pg 09/10/2017 Cbc With Differential Ord2 Camp% 8.0 % 09/10/2017 Cbc With Differential Ord2 [...] 2.10 K/ul 09/10/2017 Cbc With Differential Ord2 Camp ABS# 0.7 K/ul 09/10/2017 Cbc With Differential Ord2 Eos ABS# 0.5 K/ul 09/10/2017 Cbc With Differential Ord2 Baso ABS# 0.0 K/ul 09/10/2017 Comp Metabolic Msb981 NA 139 mEq/L 09/10/2017 Comp Metabolic Akr738 K 4.6 mEq/L 09/10/2017 Comp Metabolic Mde526 CL 103 mEq/L 09/10/2017 Comp Metabolic Ttw056 CO2 28.0 mEq/L 09/10/2017 Comp Metabolic Otb087 AN ION GAP 13 09/10/2017 Comp Metabolic Psx648 GL UCOSE 91 mg/dL 09/10/2017 Comp Metabolic Zkm152 Cr eat 0.6 mg/dL 09/10/2017 Comp Metabolic Zur525 eG FR 117 ml/min/1.73m2 08/20 Comp Metabolic Dcs146 BUN 22 mg/dL 09/10/2017 Comp Metabolic Woh532 B/ C Ratio 37.3 Ratio 09/10/2017 Comp Metabolic Qmp764 CA LCIUM 9.6 mg/dL 09/10/2017 Comp Metabolic Ijh559 AL K PHOS 100 U/L 09/10/2017 Comp Metabolic Cwu622 T(SGOT) 12 U/L 09/10/2017 Comp Metabolic Bdt727 AL T(SGPT) 13 U/L 09/10/2017 Comp Metabolic Wjg397 BI LI T 0.2 mg/dL 09/10/2017 Comp Metabolic Avb117 AL BUMIN 3.9 g/dL 09/10/2017 Comp Metabolic Ykj097 TP RO 7.0 g/dL 09/10/2017 Comp Metabolic Zjb522 GL OB 3.1 g/dL 09/10/2017 Comp Metabolic Tes069 A/ G Ratio 1.3 Ratio 09/10/2017 Comp Metabolic Jcm360 Os mo 280 mOsmo 09/10/2017 Tsh Ord6 TSH (3rd IS) 6.83 uIU/mL 09/10/2017 Free T4 Wue800 FREE T4 1.53 ng/dL 04/07/2017 Tsh Ord6 hTSH II 0.55 uIU/mL 04/07/2017 Tsh Ord6 hTSH II 0.55 uIU/mL 12/30/2016 Free T4 Fgk223 FREE T4 1.15 ng/dL 12/30/2016 %Hba1C Bfu308 % HbA1c 74044-4 6.0 % 10/01/2016 %Hba1C Jzd312 Gluc Ave 126 mg/dL 10/01/2016 Tsh Ord6 hTSH II 0.19 uIU/mL 10/01/2016 Comp Metabolic Shi806 NA 139 mEq/L 10/01/2016 Comp Metabolic Yqm900 K 4.6 mEq/L 10/01/2016 Comp Metabolic Iqx348 CL 102 mEq/L 10/01/2016 Comp Metabolic Ujt543 CO2 28.0 mEq/L 10/01/2016 Comp Metabolic Ilk702 AN ION GAP 14 10/01/2016 Comp Metabolic Cin015 GL UCOSE 93 mg/dL 10/01/2016 Comp Metabolic Msj119 Cr eat 0.6 mg/dL 10/01/2016 Comp Metabolic Bgs491 eG FR 109 ml/min/1.73m2 09/19 Comp Metabolic Cdt620 BUN 20 mg/dL 10/01/2016 Comp Metabolic Xds258 B/ C Ratio 31.7 Ratio 10/01/2016 Comp Metabolic Gty766 CA LCIUM 9.8 mg/dL 10/01/2016 Comp Metabolic Gcx298 AL K PHOS 114 U/L 10/01/2016 Comp Metabolic Kib458 T(SGOT) 11 U/L 10/01/2016 Comp Metabolic Uiz482 AL T(SGPT) 12 U/L 10/01/2016 Comp Metabolic Wrb023 BI LI T 0.4 mg/dL 10/01/2016 Comp Metabolic Upx395 AL BUMIN 4.3 g/dL 10/01/2016 Comp Metabolic Ubm701 TP RO 7.2 g/dL 10/01/2016 Comp Metabolic Tug013 GL OB 2.9 g/dL 10/01/2016 Comp Metabolic Nkb076 A/ G Ratio 1.5 Ratio 10/01/2016 Comp Metabolic Pfo937 Os mo 280 mOsmo 10/01/2016 Free T4 Dpp223 FREE T4 1.37 ng/dL 10/01/2016 Lipid Ord30 [...] 88.4 fl 10/01/2016 Cbc With Differential Ord2 Camp% 8.5 % 10/01/2016 Cbc With Differential Ord2 [...] 1.69 K/ul 10/01/2016 Cbc With Differential Ord2 Camp ABS# 0.7 K/ul 10/01/2016 Cbc With Differential [...] 75.3 fl 04/06/2016 Cbc With Differential Ord2 Camp% 8.2 % 04/06/2016 Cbc With Differential Ord2 [...] 1.48 K/ul 04/06/2016 Cbc With Differential Ord2 Camp ABS# 0.5 K/ul 04/06/2016 Cbc With Differential Ord2 Eos ABS# 0.4 K/ul 04/06/2016 Cbc With Differential Ord2 Baso ABS# 0.0 K/ul 04/06/2016 Ferritin Ord22 FERRITIN 5.8 ng/mL 04/06/2016 Free T4 Ulr773 FREE T4 1.16 ng/dL 03/16/2016 %Hba1C Jgv598 % HbA1c 39613-2 7.0 % 03/16/2016 %Hba1C Zsh666 Gluc Ave 154 mg/dL 03/16/2016 Cbc With [...] 76.8 fl 03/16/2016 Cbc With Differential Ord2 Camp% 4.8 % 03/16/2016 Cbc With Differential Ord2 [...] 1.75 K/ul 03/16/2016 Cbc With Differential Ord2 Camp ABS# 0.6 K/ul 03/16/2016 Cbc With Differential Ord2 Eos ABS# 0.4 K/ul 03/16/2016 Cbc With Differential Ord2 Baso ABS# 0.0 K/ul 03/16/2016 Tsh Ord6 hTSH II 1.39 uIU/mL 03/16/2016 Tsh Ord6 hTSH II 10.28 uIU/mL 11/14/2015 Free T4 Ayh177 FREE T4 0.79 ng/dL 11/14/2015 Lipid Ord30 [...] 24.4 pg 11/14/2015 Cbc With Differential Ord2 Camp% 6.6 % 11/14/2015 Cbc With Differential Ord2 [...] 1.72 K/ul 11/14/2015 Cbc With Differential Ord2 Camp ABS# 0.8 K/ul 11/14/2015 Cbc With Differential Ord2 Eos ABS# 0.4 K/ul 11/14/2015 Cbc With Differential Ord2 Baso ABS# 0.0 K/ul 11/14/2015 Comp Metabolic Vtm856 NA 136 mEq/L 11/14/2015 Comp Metabolic Whg273 K 4.4 mEq/L 11/14/2015 Comp Metabolic Ccv922 CL 101 mEq/L 11/14/2015 Comp Metabolic Zrv623 CO2 27.0 mEq/L 11/14/2015 Comp Metabolic Utm545 AN ION GAP 12 11/14/2015 Comp Metabolic Tsc079 GL UCOSE 107 mg/dL 11/14/2015 Comp Metabolic Jva199 Cr eat 0.6 mg/dL 11/14/2015 Comp Metabolic Rze993 eG FR 125 ml/min/1.73m2 10/20 Comp Metabolic Kwg468 BUN 14 mg/dL 11/14/2015 Comp Metabolic Luh328 B/ C Ratio 25.0 Ratio 11/14/2015 Comp Metabolic Qmw815 CA LCIUM 9.6 mg/dL 11/14/2015 Comp Metabolic Pra259 AL K PHOS 104 U/L 11/14/2015 Comp Metabolic Swb590 T(SGOT) 16 U/L 11/14/2015 Comp Metabolic Etp624 AL T(SGPT) 14 U/L 11/14/2015 Comp Metabolic Tsf703 BI LI T 0.3 mg/dL 11/14/2015 Comp Metabolic Lsp276 AL BUMIN 4.0 g/dL 11/14/2015 Comp Metabolic Jva526 TP RO 7.2 g/dL 11/14/2015 Comp Metabolic Jmj174 GL OB 3.2 g/dL 11/14/2015 Comp Metabolic Dso776 A/ G Ratio 1.3 Ratio 11/14/2015 Comp Metabolic Tuf875 Os mo 273 mOsmo 11/14/2015 %Hba1C Jfm966 % HbA1c 27390-5 7.0 % 11/14/2015 %Hba1C Kst553 Gluc Ave 154 mg/dL 11/14/2015 Free T4 Kao308 FREE T4 0.49 ng/dL 08/02/2015 Tsh Ord6 hTSH II 44.41 uIU/mL 07/31/2015 %Hba1C Gse584 % HbA1c 08059-4 6.7 % 07/31/2015 %Hba1C Cpy000 Gluc Ave 146 mg/dL 07/31/2015 Cbc With [...] Differential Ord2 RDW 14.9 % 03/13/2015 %Hba1C Ebb927 % HbA1c 04953-2 6.8 % 03/13/2015 %Hba1C Lud238 Gluc Ave 148 mg/dL 03/13/2015 Tsh Ord6 hTSH II 0.95 uIU/mL 03/13/2015 Lipid Ord30 CHOL 146 mg/dL 03/13/2015 Lipid Ord30 HDL 40.0 mg/dl 03/13/2015 Lipid Ord30 TRIG 137 mg/dL 03/13/2015 Lipid Ord30 LDL 79 mg/dL 03/13/2015 Lipid Ord30 C/HDL 3.7 Ratio 03/13/2015 Comp Metabolic Ksc716 NA 135 mEq/L 03/13/2015 Comp Metabolic Iza861 K 4.5 mEq/L 03/13/2015 Comp Metabolic Qbp120 CL 99 mEq/L 03/13/2015 Comp Metabolic Nhn418 CO2 29.0 mEq/L 03/13/2015 Comp Metabolic Njp005 AN ION GAP 12 03/13/2015 Comp Metabolic Ano991 GL UCOSE 98 mg/dL 03/13/2015 Comp Metabolic Exj339 Cr eat 0.7 mg/dL 03/13/2015 Comp Metabolic Wuk298 eG FR 100 ml/min/1.73m2 02/20 Comp Metabolic Qju835 BUN 13 mg/dL 03/13/2015 Comp Metabolic Kas091 B/ C Ratio 19.1 Ratio 03/13/2015 Comp Metabolic Oca272 CA LCIUM 9.8 mg/dL 03/13/2015 Comp Metabolic Qiv280 AL K PHOS 91 U/L 03/13/2015 Comp Metabolic Vnc022 T(SGOT) 10 U/L 03/13/2015 Comp Metabolic Rrr865 AL T(SGPT) 10 U/L 03/13/2015 Comp Metabolic Bml610 BI LI T 0.4 mg/dL 03/13/2015 Comp Metabolic Gnl994 AL BUMIN 4.1 g/dL 03/13/2015 Comp Metabolic Ubb514 TP RO 6.9 g/dL 03/13/2015 Comp Metabolic Shu838 GL OB 2.8 g/dL 03/13/2015 Comp Metabolic Tpi162 A/ G Ratio 1.5 Ratio 03/13/2015 Comp Metabolic Tfo176 Os mo 270 mOsmo 03/13/2015 Free T4 Anb917 FREE T4 1.25 ng/dL 03/13/2015 Review of [...] Procedure Codes Date THER/PROPH/DIAG INJ SC/IM CPT-4: 10448 06/29/2018 THER/PROPH/DIAG INJ SC/IM CPT-4: 14102 03/23/2018 VITAMIN B12 INJECTION CPT-4: J3420 03/23/2018 THER/PROPH/DIAG INJ SC/IM CPT-4: 07341 02/07/2018 VITAMIN B12 INJECTION CPT-4: J3420 02/07/2018 THER/PROPH/DIAG INJ SC/IM CPT-4: 77740 01/13/2018 VITAMIN B12 INJECTION CPT-4: J3420 01/13/2018 VITAMIN B12 INJECTION CPT-4: J3420 12/06/2017 THER/PROPH/DIAG INJ SC/IM CPT-4: 12633 12/06/2017 THER/PROPH/DIAG INJ SC/IM CPT-4: 05923 11/01/2017 VITAMIN B12 INJECTION CPT-4: J3420 11/01/2017 THER/PROPH/DIAG INJ SC/IM CPT-4: 81375 09/28/2017 VITAMIN B12 INJECTION CPT-4: J3420 09/28/2017 Vital Signs Date Vital 11/01/2017 Heigh t: 5'3" 09/10/2017 Blood Pressure 1: 136/70 Code: 8480-6 BMI: 44.6 Code: 31644-7 Heart Rate 1: 91 bpm Height: 5'3" SpO2: 96% Weight: 252 lbs 10/13/2016 Blood Pressure 1: 134/82 Code: 8480-6 BMI: 43.6 Code: 72973-7 Heart Rate 1: 97 bpm Height: 5'3" SpO2: 97% Weight: 246 lbs 01/14/2016 Blood Pressure 1: 132/78 Code: 8480-6 BMI: 45.7 Code: 67212-9 Heart Rate 1: 90 bpm Height: 5'3" SpO2: 98% Weight: 258 lbs 07/31/2015 Blood Pressure 1: 142/80 Code: 8480-6 BMI: 45.7 Code: 91879-9 Heart Rate 1: 78 bpm Height: 5'3" SpO2: 96% Weight: 258 lbs 04/04/2015 Blood Pressure 1: 130/82 Code: 8480-6 BMI: 44.9 Code: 64216-4 Heart Rate 1: 90 bpm Height: 5'3" SpO2: 96% Weight: 253 lbs 5 oz 03/13/2015 Blood Pressure 1: 140/86 Code: 8480-6 BMI: 45.2 Code: 36320-7 Heart Rate 1: 87 bpm Height: 5'3" SpO2: 93% Weight: 255 lbs Functional Status No Functional Status data History of Present Illness Symptom Name Status Resu lt Effective Date Notes hypothyroid Location at the level of the thyroid 09/10/2017 None hypothyroid Quality check and transfer beader jatin 09/10/2017 None hypothyroid Onset and Resolution [...] of the thyroid 10/13/2016 None hypothyroid Quality check and transfer beader jatin 10/13/2016 None hypothyroid Onset and Resolution [...] of the thyroid 07/31/2015 None hypothyroid Quality check and transfer beader jatin 07/31/2015 None hypothyroid Onset and Resolution [...] of the thyroid 03/13/2015 None hypothyroid Quality check and transfer beader jatin 03/13/2015 None hypothyroid Onset and Resolution [...] Codes Date EST. PATIENT, LEVEL IV Diagnosis: Excessive and frequent menstruation with irregular cycle[ICD10: N92.1] Diagnosis: Type 2 diabetes mellitus with hyperglycemia[ICD10: E11.65] Diagnosis: Other specified hypothyroidism[ICD10: E03.8] Diagnosis: Other correction (current) drug therapy[ICD10: Z79.899] Anyi Cano MD, [facility] CPT-4: 54439 09/10/2017 [id number] EST. 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 PATIENT, LEVEL IV Diagnosis: Other acute sinusitis[ICD10: J01.80] Diagnosis: Other allergic rhinitis[ICD10: J30.89] Diagnosis: Wheezing[ICD10: R06.2] Anyi Cano MD, [facility] CPT-4: 39260 01/14/2016 [id number] EST. PATIENT, LEVEL IV Diagnosis: 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[ICD10: Z79.899] Diagnosis: Type 2 diabetes mellitus with hyperglycemia[ICD10: E11.65] Diagnosis: Other specified hypothyroidism[ICD10: E03.8] Diagnosis: Mixed hyperlipidemia[ICD10: E78.2] Anyi Cano MD, [facility] CPT-4: 09641 07/31/2015 ([id number]) [id number] EST. P ATIENT, LEVEL III Diagnosis: Achilles tendinitis, left leg[ICD10: M76.62] Beba Cano MD, [facility] CPT-4: 33689 04/04/2015 ([id number]) OFFICE VISI T, NEW - LEVEL 4 Diagnosis: HYPERLIPIDEMIA[ICD9: 272.4] Diagnosis: DIABETES TYPE II[ICD9: 250.00] Diagnosis: HYPOTHYROIDISM[ICD9: 244.9] Diagnosis: ACHILLES TENDINITIS[ICD9: 726.71] [facility] CPT-4: 12743 03/13/2015 Plan of Care Planned Activity Notes C odes Status Date Appointment: Injection 06/29/2018 Patient Education: Patient Medication Summary Completed 06/29/2018 Patient Education: Patient Medication Summary Completed 04/05/2018 [id number] Pending 04/05/2018 Appointment: Injection 03/23/2018 Patient Education: Patient Medication Summary Completed 03/23/2018 Appointment: Injection 02/07/2018 Patient Education: Patient Medication Summary Completed 02/07/2018 Appointment: Injection 01/13/2018 Patient Education: Patient Medication Summary Completed 01/13/2018 Patient Education: Patient Medication Summary Completed 01/12/2018 Care Plan[facility] [id number] Pending 01/12/2018 Appointment: Injection 12/06/2017 Patient Education: [...] 09/14/2017 Care Plan: Referral Order SNOMED-CT : [id number] Pending 09/13/2017 Visit Plan: Diabetes Mellitus - [...] or pap done - will refer to [employer] due to pt symptoms and difficulty for exam - pt is to notify clinic with any changes or concerns. 09/10/2017 Appointment: Anyi Velázquez WPtel: [phone] [facility]66[facility] (15 min) Moderate 09/10/2017 Patient Education: Patient Medication Summary Completed 09/10/2017 Referral: Arvind Briseno [facility] Referral Completed 10/27/2016 Referral: Arvind Briseno1 [facility] Referral Initiated 10/27/2016 Visit Plan: [...] of control. 10/13/2016 Appointment: Anyi Velázquez WPtel: [phone] [facility] [facility] (15 min) Moderate 10/13/2016 Patient Education: Patient Medication Summary Completed 10/13/2016 Care Plan: Referral Order SNOMED-CT : [id number] Pending 10/13/2016 Visit Plan: Sinusitis - Pt [...] spray. 01/14/2016 Appointment: [facility] [phone] [id number] (30 min) Complex 01/14/2016 Patient Education: Patient [...] improving. 04/04/2015 Appointment: [facility] [phone] [id number] (15 min) Moderate 04/04/2015 Patient Education: Patient [...] appt. 03/13/2015 Appointment: Beba Can[facility] [phone] [facility] [place] New Patient 03/13/2015 Patient Education: Patient Medication Summary Completed 03/13/2015 Patient Education: Hypertension Completed 03/13/2015 Patient Education: Patient Medication Summary Completed 10/24/2014 Referral: Katia Hunter WPtel: [address] [place], [place] [phone] they will call pt to schedule appt Initiated Referral: Katia Hunter WPtel: [address] [place], [place] [phone] [place] Referral Initiated Referral: Arvind Briseno [address] [facility] [place] Referral Initiated Instructions Comment . 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
--- OUTSIDE RECORDS SUMMARY | 2020-01-06 14:50 | XMS REPORT | CCD ---
Author Author Lucia Cano Organization Beba Cano MD, [facility] Address [address] [place] [address] Phone Care Team Providers Care Medical Esthetician Name Role Phone PP Unavailable CCM Unavailable Summary Purpose Interface Exchange Insurance Providers Payer name Policy type / Coverage type Covered green party ID Effective Begin Date Effective End Date WPS Medicare Part B Medicare Part B [id number] Unknown Unknown [employer] - Medicare Part B [id number] Unknown Unknown Family history Father Diagnosis Age [...] employed [employer] 04/04/[address]: 447839893 Never smoker 04/04/[address]: 111300150 Never drinks alcohol 04/04/2015 Has the patient [...] ICD-9: 623.8 ICD-10: N92.1 09/10/2017 Active Other assisted (cur rent) drug therapy ICD-9: [...] (vit B-12) 1,000 mcg/mL injection solution RxNorm: 371545 Milliliter(s) Inj 06/29/2018 06/29/2018 Inactive naproxen 500 mg tablet RxNorm: 022951 TAKE 1 TABLET BY MOUTH TWICE DAILY 05/19/2018 09/15/2018 Ac tive Generic For:NAPROSYN 500MG 05/19/2018 1 0:56:16 AM N O T I C E Last quantity doesn't match original quantity Kenalog 40 mg/mL debora pension for injection RxNorm: 5087913 Milliliter(s) Inj 03/23/2018 03/23/2018 In active levothyroxine 50 mcg tablet RxNorm: 134036 TAKE 1 TABLET BY MOUT H ONCE DAILY WITH 200MCG (250MCG TOTAL) 03/11/2018 06/08/2018 Inactive Generic For:SYNTHROID 50MCG TAB 03/11/2018 9:09:32 AM naproxen 500 mg tablet RxNorm: 353703 TAKE 1 TABLET BY MOUTH TWICE DAILY 02/25/2018 05/18/2018 In active Generic For:NAPROSYN 500MG 02/25/2018 1 2:39:53 PM N O T I C E Last quantity doesn't match original quantity cyanocobalamin (vit B-12) 1,000 mcg/mL injection solution RxNorm: 276261 Milliliter(s) Inj 02/07/2018 02/07/2018 Inactive metformin 1,000 mg t ablet RxNorm: 050854 TAKE 1 TABLET BY MOUT H TWICE A DAY 01/19/2018 01/13/2019 Ac tive Generic For:*GLUCOPHAGE 1000MG 01/20/20 18 10:20:50 AM cyanocobalamin (vit B-12) 1,000 mcg/mL injection solution RxNorm: 517130 Milliliter(s) Inj 01/13/2018 01/13/2018 Inactive cyanocobalamin (vit B-12) 1,000 mcg/mL injection solution RxNorm: 937878 Milliliter(s) Inj 12/06/2017 12/06/2017 Inactive Invokana 300 mg tablet RxNorm: 8057725 TAKE 1 TABLET BY MOUTH DAILY 11/08/2017 11/02/2018 Ac tive 11/05/2017 5:10:44 PM Lipitor 40 mg tablet RxNorm: 049616 TAKE 1 TABLET BY MOUTH DAILY 11/08/2017 11/02/2018 Active Generic For:LIPITOR 40MG 11/05/2017 5:1 0:24 PM naproxen 500 mg tablet RxNorm: 955103 TAKE 1 TABLET BY MOUTH TWICE DAILY 11/08/2017 02/05/2018 In active Generic For:NAPROSYN 500MG 11/08/2017 9 :14:56 AM N O T I C E Last quantity doesn't match original quantity levothyroxine 50 mcg tablet RxNorm: 991176 1 Tablet(s) PO daily to take with the 200mcg daily to equal 250mcg daily 11/08/2017 02/05/2018 Inactive cyanocobalamin (vit B-12) 1,000 mcg/mL injection solution RxNorm: 324322 1 Milliliter(s) Inj 11/01/2017 11/01/2017 Inactive cyanocobalamin (vit B-12) 1,000 mcg/mL injection solution RxNorm: 065846 1 Milliliter(s) Inj 09/28/2017 09/28/2017 Inactive levothyroxine 200 mc g tablet RxNorm: 180689 1 Tablet(s) PO daily to take with the 50mcg daily to equal 250mcg daily 09/14/2017 06/10/2018 Inactive levothyroxine 50 mcg tablet RxNorm: 178221 1 Tablet(s) PO daily to take with the 200mcg daily to equal 250mcg daily 09/14/2017 11/07/2017 Inactive naproxen 500 mg tablet RxNorm: 120103 TAKE 1 TABLET BY MOUTH TWICE DAILY 08/05/2017 11/02/2017 In active Generic For:NAPROSYN 500MG 08/05/2017 9 :04:47 AM N O T I C E Last quantity doesn't match original quantity naproxen 500 mg tablet RxNorm: 513001 TAKE 1 TABLET BY MOUTH TWICE DAILY 04/19/2017 08/04/2017 In active Generic For:NAPROSYN 500MG 04/19/2017 1 :49:28 PM Lipitor 40 mg tablet RxNorm: 908099 TAKE 1 TABLET BY MOUTH DAILY 03/22/2017 11/07/2017 Inactive Generic For:LIPITOR 40MG 03/20/2017 9:0 5:49 AM levothyroxine 25 mcg tablet RxNorm: 391564 1 Tablet(s) PO daily to take with her 200mcg to equal 225 mcg daily 03/22/2017 04/08/2017 Inactive Invokana 300 mg tablet RxNorm: 9452011 TAKE 1 TABLET BY MOUTH DAILY 12/21/2016 09/16/2017 In active 12/21/2016 9:03:03 AM levothyroxine 200 mc g tablet RxNorm: 228536 1 Tablet(s) PO daily 12/21/2016 09/13/2017 Inactive metformin 1,000 mg t ablet RxNorm: 918332 TAKE 1 TABLET BY MOUT H TWICE A DAY 11/26/2016 11/20/2017 In active Generic For:*GLUCOPHAGE 1000MG 11/27/19 17 1:05:15 PM naproxen 500 mg tablet RxNorm: 197625 1 Tablet(s) PO BID 10/21/2016 04/18/2017 Inactive levothyroxine 25 mcg tablet RxNorm: 152827 1 Tablet(s) PO daily to take with her 200mcg to equal 225 mcg daily 10/13/2016 01/10/2017 Inactive levothyroxine 50 mcg tablet RxNorm: 224750 1 Tablet(s) PO daily 09/21/2016 10/12/2016 Inactive Invokana 300 mg tablet RxNorm: 2922069 1 Tablet(s) PO daily 09/21/2016 12/19/2016 Inactive metformin 1,000 mg t ablet RxNorm: 328521 TAKE 1 TABLET BY MOUT H TWICE A DAY 09/21/2016 11/25/2016 In active Generic For:*GLUCOPHAGE 1000MG 09/22/19 17 8:53:30 AM levothyroxine 200 mc g tablet RxNorm: 682153 1 Tablet(s) PO daily 09/21/2016 12/19/2016 Inactive Lipitor 40 mg tablet RxNorm: 437033 TAKE 1 TABLET BY MOUTH DAILY 06/23/2016 03/19/2017 Inactive Generic For:LIPITOR 40MG 06/23/2016 9:1 2:42 AM levothyroxine 50 mcg tablet RxNorm: 778242 1 Tablet(s) PO daily TAKE 1 TABLET BY MOUTH DAILY 06/23/2016 09/20/2016 Inactive Generic For:SYNTHROID 50MCG TAB 06/23/2016 9:22:58 AM metformin 1,000 mg t ablet RxNorm: 915861 TAKE 1 TABLET BY MOUT H TWICE A DAY 06/23/2016 09/20/2016 In active Generic For:*GLUCOPHAGE 1000MG 06/23/19 17 9:12:46 AM levothyroxine 200 mc g tablet RxNorm: 332935 1 Tablet(s) PO daily 04/24/2016 08/21/2016 Inactive naproxen 500 mg tablet RxNorm: 758836 1 Tablet(s) PO BID 03/26/2016 10/20/2016 Inactive levothyroxine 50 mcg tablet RxNorm: 592298 1 Tablet(s) PO daily 03/25/2016 06/23/2016 Inactive Flonase Allergy Reli ef 50 mcg/actuation nasal spray,suspension RxNorm: 0404972 1 [place] NASAL BID 01/14/2016 No Stop Date Active prednisone 20 mg tablet RxNorm: 413513 2 Tablet(s) PO daily 01/14/2016 01/16/2016 Inactive Zithromax Z-Michael 250 mg tablet RxNorm: 852138 Tablet(s) PO 01/14/2016 02/25/2016 Inactive levothyroxine 200 mc g tablet RxNorm: 092156 1 Tablet(s) PO daily 11/25/2015 03/23/2016 Inactive levothyroxine 50 mcg tablet RxNorm: 051535 1 Tablet(s) PO daily 11/25/2015 03/23/2016 Inactive Invokana 300 mg tablet RxNorm: 9212993 1 Tablet(s) PO daily 11/25/2015 09/20/2016 Inactive metformin 1,000 mg t ablet RxNorm: 494951 TAKE 1 TABLET BY MOUT H TWICE A DAY 08/22/2015 05/17/2016 In active Generic For:*GLUCOPHAGE 1000MG N O T I C E PRESCRIPTION PREVIOUSLY AUTHORIZED BY DOCTOR:PEDRO SIMPSON levothyroxine 200 mc g tablet RxNorm: 534499 1 Tablet(s) PO daily 08/02/2015 11/24/2015 Inactive levothyroxine 25 mcg tablet RxNorm: 409032 1 Tablet(s) PO daily 08/02/2015 11/24/2015 Inactive levothyroxine 25 mcg tablet RxNorm: 592968 1 Tablet(s) PO daily 08/02/2015 08/01/2015 Inactive Zithromax Z-Michael 250 mg tablet RxNorm: 270423 Tablet(s) PO 07/31/2015 10/27/2015 Inactive naproxen 500 mg tablet RxNorm: 371273 1 Tablet(s) PO BID 07/31/2015 02/25/2016 Inactive Lipitor 40 mg tablet RxNorm: 081883 TAKE 1 TABLET BY MOUTH DAILY 05/26/2015 05/19/2016 Inactive Generic For:LIPITOR 40MG 05/25/2015 10: 36:19 AM levothyroxine 200 mc g tablet RxNorm: 226648 TAKE 1 TABLET ONCE DA SUKUMAR WITH 50MCG TABLET TO MAKE 250MCG. 05/26/2015 07/30/2015 Inactive Generic For:SYNTHROID 200MC G TAB 05/25/2015 10:36:11 AM Invokana 100 mg tablet RxNorm: 9728259 1 Tablet(s) PO daily 03/15/2015 03/14/2015 Inactive Invokana 100 mg tablet RxNorm: 1587815 1 Tablet(s) PO daily 03/15/2015 11/24/2015 Inactive naproxen 500 mg tablet RxNorm: 697898 1 Tablet(s) PO BID 03/13/2015 07/30/2015 Inactive metformin 1,000 mg t ablet RxNorm: 001502 1 Tablet(s) PO BID 03/13/2015 08/21/2015 Inactive levothyroxine 200 mc g tablet RxNorm: 934025 TAKE 1 TABLET ONCE DA SUKUMAR WITH 50MCG TABLET TO MAKE 250MCG. 02/12/2015 05/12/2015 Inactive Generic For:SYNTHROID 200MC G TAB 02/12/2015 11:50:50 AM Lipitor 40 mg tablet RxNorm: 460802 TAKE 1 TABLET BY MOUTH DAILY 02/12/2015 05/12/2015 Inactive Generic For:LIPITOR 40MG 02/12/2015 11: 50:55 AM levothyroxine 200 mc g tablet RxNorm: 860808 1 Tablet(s) PO daily 11/19/2014 02/11/2015 Inactive levothyroxine 200 mc g tablet RxNorm: 347170 1 Tablet(s) PO daily 11/19/2014 11/18/2014 Inactive Lipitor 40 mg tablet RxNorm: 085036 1 Tablet(s) PO daily call and make appt. 11/19/2014 02/11/2015 In active Lipitor 40 mg tablet RxNorm: 972376 1 Tablet(s) PO daily call and make appt. 11/15/2014 11/18/2014 In active Lipitor 40 mg tablet RxNorm: 026713 1 Tablet(s) PO daily call and make appt. 11/15/2014 11/14/2014 In active [place] with Iro n oral RxNorm: oral No Start D ate Active Vitamin B-12 1,000 m cg/mL injection solution RxNorm: 627053 1 Milliliter(s) Inj m onthly No Start Date Active levothyroxine 200 mc g tablet RxNorm: 881674 1 Tablet(s) PO daily No Start Date 08/01/2015 Inactive Medication Administered Medication Codes Instruc tions Start Date Status cyanocobalamin (vit B-12) 1,000 mcg/mL injection solut ion RxNorm: 404755 Milliliter 06/29/2018 Active Kenalog 40 mg/mL suspension for injection RxNorm: 6869210 Milliliter 03/23/2018 No longer Active cyanocobalamin (vit B-12) 1,000 mcg/mL injection solut ion RxNorm: 616957 Milliliter 02/07/2018 No longer Active cyanocobalamin (vit B-12) 1,000 mcg/mL injection solut ion RxNorm: 610347 Milliliter 01/13/2018 No longer Active cyanocobalamin (vit B-12) 1,000 mcg/mL injection solut ion RxNorm: 062323 Milliliter 12/06/2017 No longer Active cyanocobalamin (vit B-12) 1,000 mcg/mL injection solut ion RxNorm: 678264 1Milliliter 11/01/2017 No longer Active cyanocobalamin (vit B-12) 1,000 mcg/mL injection solut ion RxNorm: 445812 1Milliliter 09/28/2017 No longer Active Immunizations Vaccine [...] ICD- 10: D50.0 ICD-9: 280.0 09/27/2017 Other assisted (current) drug therapy ICD-10: Z79.899 ICD-9: V58.69 [...] Hct Ord65 HCT 30.4 % 09/24/2017 B12 Nqn168 B12 124.00 pg/ml 09/15/2017 Cbc With Differential [...] 19.0 % 09/15/2017 Cbc With Differential Ord2 [place]% 7.7 % 09/15/2017 Cbc With Differential Ord2 [...] 1.94 K/ul 09/15/2017 Cbc With Differential Ord2 [place] ABS# 0.8 K/ul 09/15/2017 Cbc With Differential Ord2 Eos ABS# 0.5 K/ul 09/15/2017 Cbc With Differential Ord2 Baso ABS# 0.1 K/ul 09/15/2017 Tibc Ord40 Iron 21 ug/dl 09/15/2017 Tibc Ord40 UIBC 432 ug/dL 09/15/2017 Tibc Ord40 TIBC 453 ug/dL 09/15/2017 Tibc Ord40 Fe-%Sat 4.6 % 09/15/2017 Folate Ord36 Folate 15.31 ng/mL 09/15/2017 Ferritin Ord22 FERRITIN 4.3 ng/mL 09/15/2017 Free T4 Vdo872 FREE T4 0.88 ng/dL 09/10/2017 %Hba1C Wox200 % HbA1c 07231-5 6.7 % 09/10/2017 %Hba1C Byf945 Gluc Ave 146 mg/dL 09/10/2017 Cbc With [...] 20.5 pg 09/10/2017 Cbc With Differential Ord2 [place]% 8.0 % 09/10/2017 Cbc With Differential Ord2 [...] 2.10 K/ul 09/10/2017 Cbc With Differential Ord2 [place] ABS# 0.7 K/ul 09/10/2017 Cbc With Differential Ord2 Eos ABS# 0.5 K/ul 09/10/2017 Cbc With Differential Ord2 Baso ABS# 0.0 K/ul 09/10/2017 Comp Metabolic Hbk936 NA 139 mEq/L 09/10/2017 Comp Metabolic Laz212 K 4.6 mEq/L 09/10/2017 Comp Metabolic Jxx557 CL 103 mEq/L 09/10/2017 Comp Metabolic Wow195 CO2 28.0 mEq/L 09/10/2017 Comp Metabolic Qen542 AN ION GAP 13 09/10/2017 Comp Metabolic Bpn810 GL UCOSE 91 mg/dL 09/10/2017 Comp Metabolic Ttm887 Cr eat 0.6 mg/dL 09/10/2017 Comp Metabolic Ltt141 eG FR 117 ml/min/1.73m2 08/20 Comp Metabolic Ivj413 BUN 22 mg/dL 09/10/2017 Comp Metabolic Xgt806 B/ C Ratio 37.3 Ratio 09/10/2017 Comp Metabolic Uxd506 CA LCIUM 9.6 mg/dL 09/10/2017 Comp Metabolic Mxz215 AL K PHOS 100 U/L 09/10/2017 Comp Metabolic Dya875 T(SGOT) 12 U/L 09/10/2017 Comp Metabolic Bfg237 AL T(SGPT) 13 U/L 09/10/2017 Comp Metabolic Aal468 BI LI T 0.2 mg/dL 09/10/2017 Comp Metabolic Tuw525 AL BUMIN 3.9 g/dL 09/10/2017 Comp Metabolic Wvc858 TP RO 7.0 g/dL 09/10/2017 Comp Metabolic Htb543 GL OB 3.1 g/dL 09/10/2017 Comp Metabolic Zvo495 A/ G Ratio 1.3 Ratio 09/10/2017 Comp Metabolic Cho991 Os mo 280 mOsmo 09/10/2017 Tsh Ord6 TSH (3rd IS) 6.83 uIU/mL 09/10/2017 Free T4 Nsf619 FREE T4 1.53 ng/dL 04/07/2017 Tsh Ord6 hTSH II 0.55 uIU/mL 04/07/2017 Tsh Ord6 hTSH II 0.55 uIU/mL 12/30/2016 Free T4 Kmc216 FREE T4 1.15 ng/dL 12/30/2016 %Hba1C Xex104 % HbA1c 68957-9 6.0 % 10/01/2016 %Hba1C Rvt171 Gluc Ave 126 mg/dL 10/01/2016 Tsh Ord6 hTSH II 0.19 uIU/mL 10/01/2016 Comp Metabolic Twh690 NA 139 mEq/L 10/01/2016 Comp Metabolic Uvw973 K 4.6 mEq/L 10/01/2016 Comp Metabolic Dit255 CL 102 mEq/L 10/01/2016 Comp Metabolic Pxs297 CO2 28.0 mEq/L 10/01/2016 Comp Metabolic Byi093 AN ION GAP 14 10/01/2016 Comp Metabolic Yrt461 GL UCOSE 93 mg/dL 10/01/2016 Comp Metabolic Lik959 Cr eat 0.6 mg/dL 10/01/2016 Comp Metabolic Vgb704 eG FR 109 ml/min/1.73m2 09/19 Comp Metabolic Vyv949 BUN 20 mg/dL 10/01/2016 Comp Metabolic Mcw953 B/ C Ratio 31.7 Ratio 10/01/2016 Comp Metabolic Jbe934 CA LCIUM 9.8 mg/dL 10/01/2016 Comp Metabolic Uhb417 AL K PHOS 114 U/L 10/01/2016 Comp Metabolic Mtf306 T(SGOT) 11 U/L 10/01/2016 Comp Metabolic Tvx389 AL T(SGPT) 12 U/L 10/01/2016 Comp Metabolic Wnf875 BI LI T 0.4 mg/dL 10/01/2016 Comp Metabolic Pmp462 AL BUMIN 4.3 g/dL 10/01/2016 Comp Metabolic Qwd913 TP RO 7.2 g/dL 10/01/2016 Comp Metabolic Qnm687 GL OB 2.9 g/dL 10/01/2016 Comp Metabolic Iix918 A/ G Ratio 1.5 Ratio 10/01/2016 Comp Metabolic Wtq518 Os mo 280 mOsmo 10/01/2016 Free T4 Ewp743 FREE T4 1.37 ng/dL 10/01/2016 Lipid Ord30 [...] 88.4 fl 10/01/2016 Cbc With Differential Ord2 [place]% 8.5 % 10/01/2016 Cbc With Differential Ord2 [...] 1.69 K/ul 10/01/2016 Cbc With Differential Ord2 [place] ABS# 0.7 K/ul 10/01/2016 Cbc With Differential [...] 75.3 fl 04/06/2016 Cbc With Differential Ord2 [place]% 8.2 % 04/06/2016 Cbc With Differential Ord2 [...] 1.48 K/ul 04/06/2016 Cbc With Differential Ord2 [place] ABS# 0.5 K/ul 04/06/2016 Cbc With Differential Ord2 Eos ABS# 0.4 K/ul 04/06/2016 Cbc With Differential Ord2 Baso ABS# 0.0 K/ul 04/06/2016 Ferritin Ord22 FERRITIN 5.8 ng/mL 04/06/2016 Free T4 Xiq569 FREE T4 1.16 ng/dL 03/16/2016 %Hba1C Jkd421 % HbA1c 25065-1 7.0 % 03/16/2016 %Hba1C Cxm661 Gluc Ave 154 mg/dL 03/16/2016 Cbc With [...] 76.8 fl 03/16/2016 Cbc With Differential Ord2 [place]% 4.8 % 03/16/2016 Cbc With Differential Ord2 [...] 1.75 K/ul 03/16/2016 Cbc With Differential Ord2 [place] ABS# 0.6 K/ul 03/16/2016 Cbc With Differential Ord2 Eos ABS# 0.4 K/ul 03/16/2016 Cbc With Differential Ord2 Baso ABS# 0.0 K/ul 03/16/2016 Tsh Ord6 hTSH II 1.39 uIU/mL 03/16/2016 Tsh Ord6 hTSH II 10.28 uIU/mL 11/14/2015 Free T4 Bac520 FREE T4 0.79 ng/dL 11/14/2015 Lipid Ord30 [...] 24.4 pg 11/14/2015 Cbc With Differential Ord2 [place]% 6.6 % 11/14/2015 Cbc With Differential Ord2 [...] 1.72 K/ul 11/14/2015 Cbc With Differential Ord2 [place] ABS# 0.8 K/ul 11/14/2015 Cbc With Differential Ord2 Eos ABS# 0.4 K/ul 11/14/2015 Cbc With Differential Ord2 Baso ABS# 0.0 K/ul 11/14/2015 Comp Metabolic Kda680 NA 136 mEq/L 11/14/2015 Comp Metabolic Ncm249 K 4.4 mEq/L 11/14/2015 Comp Metabolic Yyv283 CL 101 mEq/L 11/14/2015 Comp Metabolic Gpw715 CO2 27.0 mEq/L 11/14/2015 Comp Metabolic Mwt981 AN ION GAP 12 11/14/2015 Comp Metabolic Tdp521 GL UCOSE 107 mg/dL 11/14/2015 Comp Metabolic Bwi600 Cr eat 0.6 mg/dL 11/14/2015 Comp Metabolic Toa550 eG FR 125 ml/min/1.73m2 10/20 Comp Metabolic Nha379 BUN 14 mg/dL 11/14/2015 Comp Metabolic Izr220 B/ C Ratio 25.0 Ratio 11/14/2015 Comp Metabolic Dff842 CA LCIUM 9.6 mg/dL 11/14/2015 Comp Metabolic Gzv695 AL K PHOS 104 U/L 11/14/2015 Comp Metabolic Vhn649 T(SGOT) 16 U/L 11/14/2015 Comp Metabolic Pez210 AL T(SGPT) 14 U/L 11/14/2015 Comp Metabolic Cpa578 BI LI T 0.3 mg/dL 11/14/2015 Comp Metabolic Lcg324 AL BUMIN 4.0 g/dL 11/14/2015 Comp Metabolic Euq230 TP RO 7.2 g/dL 11/14/2015 Comp Metabolic Jbv498 GL OB 3.2 g/dL 11/14/2015 Comp Metabolic Tmt897 A/ G Ratio 1.3 Ratio 11/14/2015 Comp Metabolic Tzn046 Os mo 273 mOsmo 11/14/2015 %Hba1C Hzy634 % HbA1c 73677-3 7.0 % 11/14/2015 %Hba1C Xow864 Gluc Ave 154 mg/dL 11/14/2015 Free T4 Qgl999 FREE T4 0.49 ng/dL 08/02/2015 Tsh Ord6 hTSH II 44.41 uIU/mL 07/31/2015 %Hba1C Lap302 % HbA1c 46560-0 6.7 % 07/31/2015 %Hba1C Qyf153 Gluc Ave 146 mg/dL 07/31/2015 Cbc With [...] Differential Ord2 RDW 14.9 % 03/13/2015 %Hba1C Jdi676 % HbA1c 90691-9 6.8 % 03/13/2015 %Hba1C Gga216 Gluc Ave 148 mg/dL 03/13/2015 Tsh Ord6 hTSH II 0.95 uIU/mL 03/13/2015 Lipid Ord30 CHOL 146 mg/dL 03/13/2015 Lipid Ord30 HDL 40.0 mg/dl 03/13/2015 Lipid Ord30 TRIG 137 mg/dL 03/13/2015 Lipid Ord30 LDL 79 mg/dL 03/13/2015 Lipid Ord30 C/HDL 3.7 Ratio 03/13/2015 Comp Metabolic Qkq742 NA 135 mEq/L 03/13/2015 Comp Metabolic Fqk467 K 4.5 mEq/L 03/13/2015 Comp Metabolic Vvq239 CL 99 mEq/L 03/13/2015 Comp Metabolic Gdn018 CO2 29.0 mEq/L 03/13/2015 Comp Metabolic Jfx652 AN ION GAP 12 03/13/2015 Comp Metabolic Kwo485 GL UCOSE 98 mg/dL 03/13/2015 Comp Metabolic Ikq908 Cr eat 0.7 mg/dL 03/13/2015 Comp Metabolic Lhe673 eG FR 100 ml/min/1.73m2 02/20 Comp Metabolic Edo443 BUN 13 mg/dL 03/13/2015 Comp Metabolic Wvq834 B/ C Ratio 19.1 Ratio 03/13/2015 Comp Metabolic Bgn709 CA LCIUM 9.8 mg/dL 03/13/2015 Comp Metabolic Qrb267 AL K PHOS 91 U/L 03/13/2015 Comp Metabolic Iqm252 T(SGOT) 10 U/L 03/13/2015 Comp Metabolic Dqx828 AL T(SGPT) 10 U/L 03/13/2015 Comp Metabolic Idj148 BI LI T 0.4 mg/dL 03/13/2015 Comp Metabolic Mwv189 AL BUMIN 4.1 g/dL 03/13/2015 Comp Metabolic Jic384 TP RO 6.9 g/dL 03/13/2015 Comp Metabolic Ddu488 GL OB 2.8 g/dL 03/13/2015 Comp Metabolic Wlg528 A/ G Ratio 1.5 Ratio 03/13/2015 Comp Metabolic Ere484 Os mo 270 mOsmo 03/13/2015 Free T4 Qeh005 FREE T4 1.25 ng/dL 03/13/2015 Review of [...] Procedure Codes Date THER/PROPH/DIAG INJ SC/IM CPT-4: 63624 06/29/2018 THER/PROPH/DIAG INJ SC/IM CPT-4: 37762 03/23/2018 VITAMIN B12 INJECTION CPT-4: J3420 03/23/2018 THER/PROPH/DIAG INJ SC/IM CPT-4: 53767 02/07/2018 VITAMIN B12 INJECTION CPT-4: J3420 02/07/2018 THER/PROPH/DIAG INJ SC/IM CPT-4: 14246 01/13/2018 VITAMIN B12 INJECTION CPT-4: J3420 01/13/2018 VITAMIN B12 INJECTION CPT-4: J3420 12/06/2017 THER/PROPH/DIAG INJ SC/IM CPT-4: 01453 12/06/2017 THER/PROPH/DIAG INJ SC/IM CPT-4: 90537 11/01/2017 VITAMIN B12 INJECTION CPT-4: J3420 11/01/2017 THER/PROPH/DIAG INJ SC/IM CPT-4: 99588 09/28/2017 VITAMIN B12 INJECTION CPT-4: J3420 09/28/2017 Vital Signs Date Vital 11/01/2017 Heigh t: 5'3" 09/10/2017 Blood Pressure 1: 136/70 Code: 8480-6 BMI: 44.6 Code: 84644-3 Heart Rate 1: 91 bpm Height: 5'3" SpO2: 96% Weight: 252 lbs 10/13/2016 Blood Pressure 1: 134/82 Code: 8480-6 BMI: 43.6 Code: 53293-6 Heart Rate 1: 97 bpm Height: 5'3" SpO2: 97% Weight: 246 lbs 01/14/2016 Blood Pressure 1: 132/78 Code: 8480-6 BMI: 45.7 Code: 80045-4 Heart Rate 1: 90 bpm Height: 5'3" SpO2: 98% Weight: 258 lbs 07/31/2015 Blood Pressure 1: 142/80 Code: 8480-6 BMI: 45.7 Code: 27995-0 Heart Rate 1: 78 bpm Height: 5'3" SpO2: 96% Weight: 258 lbs 04/04/2015 Blood Pressure 1: 130/82 Code: 8480-6 BMI: 44.9 Code: 27035-7 Heart Rate 1: 90 bpm Height: 5'3" SpO2: 96% Weight: 253 lbs 5 oz 03/13/2015 Blood Pressure 1: 140/86 Code: 8480-6 BMI: 45.2 Code: 57602-2 Heart Rate 1: 87 bpm Height: 5'3" SpO2: 93% Weight: 255 lbs Functional Status No Functional Status data History of Present Illness Symptom Name Status Resu lt Effective Date Notes hypothyroid Location at the level of the thyroid 09/10/2017 None hypothyroid Quality mat linker jatin 09/10/2017 None hypothyroid Onset and Resolution [...] of the thyroid 10/13/2016 None hypothyroid Quality mat linker jatin 10/13/2016 None hypothyroid Onset and Resolution [...] of the thyroid 07/31/2015 None hypothyroid Quality mat linker jatin 07/31/2015 None hypothyroid Onset and Resolution [...] of the thyroid 03/13/2015 None hypothyroid Quality mat linker jatin 03/13/2015 None hypothyroid Onset and Resolution [...] Encounters Encounter Performer Loca tion Codes Date 79780 EST. PATIENT, LEVEL IV Diagnosis: Excessive and frequent menstruation with irregular cycle[ICD10: N92.1] Diagnosis: Type 2 diabetes mellitus with hyperglycemia[ICD10: E11.65] Diagnosis: Other specified hypothyroidism[ICD10: E03.8] Diagnosis: Other long term care social worker (current) drug therapy[ICD10: Z79.899] Anyi Cano MD, [facility] CPT-4: 31864 09/10/2017 85945 EST. PATIENT, LEVEL IV Diagnosis: Type 2 diabetes mellitus with hyperglycemia[ICD10: E11.65] Diagnosis: Other specified hypothyroidism[ICD10: E03.8] Diagnosis: Other long term care social worker (current) drug therapy[ICD10: Z79.899] Diagnosis: Umbilical hernia without obstruction or gangrene[ICD10: K42.9] Anyi Cano MD, [facility] CPT-4: 85927 10/13/2016 54922 EST. PATIENT, LEVEL IV Diagnosis: Other acute sinusitis[ICD10: J01.80] Diagnosis: Other allergic rhinitis[ICD10: J30.89] Diagnosis: Wheezing[ICD10: R06.2] Anyi Cano MD, [facility] CPT-4: 41681 01/14/2016 45417 EST. PATIENT, LEVEL IV Diagnosis: Other assisted (current) drug therapy[ICD10: Z79.899] Diagnosis: Type 2 diabetes mellitus with hyperglycemia[ICD10: E11.65] Diagnosis: Other specified hypothyroidism[ICD10: E03.8] Diagnosis: Mixed hyperlipidemia[ICD10: E78.2] Anyi Cano MD, [facility] CPT-4: 47420 07/31/2015 ([id number]) 34618 EST. P ATIENT, LEVEL III Diagnosis: Achilles tendinitis, left leg[ICD10: M76.62] Beba Cano MD, [facility] CPT-4: 00919 04/04/2015 ([id number]) OFFICE VISI T, NEW - LEVEL 4 Diagnosis: HYPERLIPIDEMIA[ICD9: 272.4] Diagnosis: DIABETES TYPE II[ICD9: 250.00] Diagnosis: HYPOTHYROIDISM[ICD9: 244.9] Diagnosis: ACHILLES TENDINITIS[ICD9: 726.71] Beba Cano MD, [facility] CPT-4: 88511 03/13/2015 Plan of Care Planned Activity Notes C odes Status Date Patient Education: Patient Medication Summary Completed 06/29/2018 Patient Education: Patient Medication Summary Completed 04/05/2018 Care Plan: SCREENINGMAMMOGRAPHYDIGITAL LOINC : 82543-1 Pending 04/05/2018 Appointment: Injection 03/23/2018 Patient Education: Patient Medication Summary Completed 03/23/2018 Appointment: Injection 02/07/2018 Patient Education: Patient Medication Summary Completed 02/07/2018 Appointment: Injection 01/13/2018 Patient Education: Patient Medication Summary Completed 01/13/2018 Patient Education: Patient Medication Summary Completed 01/12/2018 Care Plan: [facility] 09580[facility]0 Pending 01/12/2018 Appointment: Injection 12/06/2017 Patient Education: [...] 09/14/2017 Care Plan: Referral Order SNOMED-CT : [id number] Pending 09/13/2017 Visit Plan: Diabetes Mellitus - [...] or pap done - will refer to [facility] due to pt symptoms and difficulty for exam - pt is to notify clinic with any changes or concerns. 09/10/2017 Appointment: Anyi Velázquez WPtel: [phone] [phone] [place] (15 min) Moderate 09/10/2017 Patient Education: Patient Medication Summary Completed 09/10/2017 Referral: Arvind Briseno [address] [facility] Referral Completed 10/27/2016 Referral: Arvind Briseno [address] [facility] Referral Initiated 10/27/2016 Visit [...] of control. 10/13/2016 Appointment: Anyi Velázquez WPtel: [address] [place] [address] (15 min) Moderate 10/13/2016 Patient Education: Patient Medication Summary Completed 10/13/2016 Care Plan: Referral Order SNOMED-CT : [id number] Pending 10/13/2016 Visit Plan: Sinusitis - Pt [...] allergy spray. 01/14/2016 Appointment: Melissa Newman WPtel: [phone] (30 min) Complex 01/14/2016 Patient Education: [...] improving. 04/04/2015 Appointment: [phone] (15 min) Moderate 04/04/2015 Patient Education: Patient [...] that appt. 03/13/2015 Appointment: Beba Cano WPtel: [address] [place] [address] [place] ([place]) New Patient 03/13/2015 Patient Education: Patient Medication Summary Completed 03/13/2015 Patient Education: Hypertension Completed 03/13/2015 Patient Education: Patient Medication Summary Completed 10/24/2014 Referral: Katia Hunter WPtel: [address] [place] [address] they will call pt to schedule appt Initiated Referral: Katia Hunter WPtel: [address] [place] [address] Referral Initiated Referral: Arvind Briseno [address] [place] [address] Referral Initiated Instructions Comment . Achilles Tendoniti [...] or pap done - will refer to [facility] due to pt symptoms and difficulty for [...]
--- OUTSIDE RECORDS SUMMARY | 2020-01-06 14:50 | XMS REPORT | CCD ---
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 Name Role Phone PP Unavailable CCM Unavailable Summary Purpose Interface Exchange Insurance Providers Payer name Policy type / Coverage type Covered libertarian ID Effective Begin Date Effective End Date WPS Medicare Part B Medicare Part B [id number] Unknown Unknown [employer] - Medicare Part B [id number] Unknown Unknown Family history Father Diagnosis Age [...] employed [employer] 04/04/[address]: 477508774 Never smoker 04/04/[address]: 313101300 Never drinks alcohol 04/04/2015 Has the patient [...] 623.8 ICD-10: N92.1 Active 09/10/2017 Unknown Other fdc (cur rent) drug therapy ICD-9: V58.69 ICD-10: [...] ICD-9: 623.8 ICD-10: N92.1 09/10/2017 Active Other fdc (cur rent) drug therapy ICD-9: V58.69 ICD-10: [...] Instruc tions Start Date Stop Date Sta s Fill Instructions levothyroxine 200 mc g tablet RxNorm: 070532 1 Tablet(s) PO daily to take with the 50mcg daily to equal 250mcg daily 07/19/2018 04/14/2019 Active cyanocobalamin (vit B-12) 1,000 mcg/mL injection solution RxNorm: 944521 Milliliter(s) Inj 06/29/2018 06/29/2018 Inactive naproxen 500 mg tablet RxNorm: 417722 TAKE 1 TABLET BY MOUTH TWICE DAILY 05/19/2018 09/15/2018 Ac tive Generic For:NAPROSYN 500MG 05/19/2018 1 0:56:16 AM N O T I C E Last quantity doesn't match original quantity Kenalog 40 mg/mL debora pension for injection RxNorm: 5962980 Milliliter(s) Inj 03/23/2018 03/23/2018 In active levothyroxine 50 mcg tablet RxNorm: 415458 TAKE 1 TABLET BY MOUT H ONCE DAILY WITH 200MCG (250MCG TOTAL) 03/11/2018 06/08/2018 Inactive Generic For:SYNTHROID 50MCG TAB 03/11/2018 9:09:32 AM naproxen 500 mg tablet RxNorm: 494322 TAKE 1 TABLET BY MOUTH TWICE DAILY 02/25/2018 05/18/2018 In active Generic For:NAPROSYN 500MG 02/25/2018 1 2:39:53 PM N O T I C E Last quantity doesn't match original quantity cyanocobalamin (vit B-12) 1,000 mcg/mL injection solution RxNorm: 203783 Milliliter(s) Inj 02/07/2018 02/07/2018 Inactive metformin 1,000 mg t ablet RxNorm: 902076 TAKE 1 TABLET BY MOUT H TWICE A DAY 01/19/2018 01/13/2019 Ac tive Generic For:*GLUCOPHAGE 1000MG 01/20/20 18 10:20:50 AM cyanocobalamin (vit B-12) 1,000 mcg/mL injection solution RxNorm: 323755 Milliliter(s) Inj 01/13/2018 01/13/2018 Inactive cyanocobalamin (vit B-12) 1,000 mcg/mL injection solution RxNorm: 999367 Milliliter(s) Inj 12/06/2017 12/06/2017 Inactive Invokana 300 mg tablet RxNorm: 9438721 TAKE 1 TABLET BY MOUTH DAILY 11/08/2017 11/02/2018 Ac tive 11/05/2017 5:10:44 PM Lipitor 40 mg tablet RxNorm: 908634 TAKE 1 TABLET BY MOUTH DAILY 11/08/2017 11/02/2018 Active Generic For:LIPITOR 40MG 11/05/2017 5:1 0:24 PM naproxen 500 mg tablet RxNorm: 946514 TAKE 1 TABLET BY MOUTH TWICE DAILY 11/08/2017 02/05/2018 In active Generic For:NAPROSYN 500MG 11/08/2017 9 :14:56 AM N O T I C E Last quantity doesn't match original quantity levothyroxine 50 mcg tablet RxNorm: 339416 1 Tablet(s) PO daily to take with the 200mcg daily to equal 250mcg daily 11/08/2017 02/05/2018 Inactive cyanocobalamin (vit B-12) 1,000 mcg/mL injection solution RxNorm: 405923 1 Milliliter(s) Inj 11/01/2017 11/01/2017 Inactive cyanocobalamin (vit B-12) 1,000 mcg/mL injection solution RxNorm: 410638 1 Milliliter(s) Inj 09/28/2017 09/28/2017 Inactive levothyroxine 200 mc g tablet RxNorm: 660379 1 Tablet(s) PO daily to take with the 50mcg daily to equal 250mcg daily 09/14/2017 06/10/2018 Inactive levothyroxine 50 mcg tablet RxNorm: 887948 1 Tablet(s) PO daily to take with the 200mcg daily to equal 250mcg daily 09/14/2017 11/07/2017 Inactive naproxen 500 mg tablet RxNorm: 170998 TAKE 1 TABLET BY MOUTH TWICE DAILY 08/05/2017 11/02/2017 In active Generic For:NAPROSYN 500MG 08/05/2017 9 :04:47 AM N O T I C E Last quantity doesn't match original quantity naproxen 500 mg tablet RxNorm: 525769 TAKE 1 TABLET BY MOUTH TWICE DAILY 04/19/2017 08/04/2017 In active Generic For:NAPROSYN 500MG 04/19/2017 1 :49:28 PM Lipitor 40 mg tablet RxNorm: 468132 TAKE 1 TABLET BY MOUTH DAILY 03/22/2017 11/07/2017 Inactive Generic For:LIPITOR 40MG 03/20/2017 9:0 5:49 AM levothyroxine 25 mcg tablet RxNorm: 027704 1 Tablet(s) PO daily to take with her 200mcg to equal 225 mcg daily 03/22/2017 04/08/2017 Inactive Invokana 300 mg tablet RxNorm: 6879764 TAKE 1 TABLET BY MOUTH DAILY 12/21/2016 09/16/2017 In active 12/21/2016 9:03:03 AM levothyroxine 200 mc g tablet RxNorm: 707298 1 Tablet(s) PO daily 12/21/2016 09/13/2017 Inactive metformin 1,000 mg t ablet RxNorm: 642268 TAKE 1 TABLET BY MOUT H TWICE A DAY 11/26/2016 11/20/2017 In active Generic For:*GLUCOPHAGE 1000MG 11/27/19 17 1:05:15 PM naproxen 500 mg tablet RxNorm: 484076 1 Tablet(s) PO BID 10/21/2016 04/18/2017 Inactive levothyroxine 25 mcg tablet RxNorm: 853441 1 Tablet(s) PO daily to take with her 200mcg to equal 225 mcg daily 10/13/2016 01/10/2017 Inactive levothyroxine 50 mcg tablet RxNorm: 471817 1 Tablet(s) PO daily 09/21/2016 10/12/2016 Inactive Invokana 300 mg tablet RxNorm: 9916048 1 Tablet(s) PO daily 09/21/2016 12/19/2016 Inactive metformin 1,000 mg t ablet RxNorm: 644286 TAKE 1 TABLET BY MOUT H TWICE A DAY 09/21/2016 11/25/2016 In active Generic For:*GLUCOPHAGE 1000MG 09/22/19 17 8:53:30 AM levothyroxine 200 mc g tablet RxNorm: 372779 1 Tablet(s) PO daily 09/21/2016 12/19/2016 Inactive Lipitor 40 mg tablet RxNorm: 270884 TAKE 1 TABLET BY MOUTH DAILY 06/23/2016 03/19/2017 Inactive Generic For:LIPITOR 40MG 06/23/2016 9:1 2:42 AM levothyroxine 50 mcg tablet RxNorm: 032065 1 Tablet(s) PO daily TAKE 1 TABLET BY MOUTH DAILY 06/23/2016 09/20/2016 Inactive Generic For:SYNTHROID 50MCG TAB 06/23/2016 9:22:58 AM metformin 1,000 mg t ablet RxNorm: 677771 TAKE 1 TABLET BY MOUT H TWICE A DAY 06/23/2016 09/20/2016 In active Generic For:*GLUCOPHAGE 1000MG 06/23/19 9:12:46 AM levothyroxine 200 mc g tablet RxNorm: 380655 1 Tablet(s) PO daily 04/24/2016 08/21/2016 Inactive naproxen 500 mg tablet RxNorm: 201223 1 Tablet(s) PO BID 03/26/2016 10/20/2016 Inactive levothyroxine 50 mcg tablet RxNorm: 198371 1 Tablet(s) PO daily 03/25/2016 06/23/2016 Inactive Flonase Allergy Reli ef 50 mcg/actuation nasal spray,suspension RxNorm: 5173257 1 [place] NASAL BID 01/14/2016 No Stop Date Active prednisone 20 mg tablet RxNorm: 496889 2 Tablet(s) PO daily 01/14/2016 01/16/2016 Inactive Zithromax Z-Michael 250 mg tablet RxNorm: 751639 Tablet(s) PO 01/14/2016 02/25/2016 Inactive levothyroxine 200 mc g tablet RxNorm: 376028 1 Tablet(s) PO daily 11/25/2015 03/23/2016 Inactive levothyroxine 50 mcg tablet RxNorm: 018025 1 Tablet(s) PO daily 11/25/2015 03/23/2016 Inactive Invokana 300 mg tablet RxNorm: 3652762 1 Tablet(s) PO daily 11/25/2015 09/20/2016 Inactive metformin 1,000 mg t ablet RxNorm: 007658 TAKE 1 TABLET BY MOUT H TWICE A DAY 08/22/2015 05/17/2016 In active Generic For:*GLUCOPHAGE 1000MG N O T I C E PRESCRIPTION PREVIOUSLY AUTHORIZED BY DOCTOR:PEDRO SIMPSON levothyroxine 200 mc g tablet RxNorm: 356460 1 Tablet(s) PO daily 08/02/2015 11/24/2015 Inactive levothyroxine 25 mcg tablet RxNorm: 370390 1 Tablet(s) PO daily 08/02/2015 11/24/2015 Inactive levothyroxine 25 mcg tablet RxNorm: 774373 1 Tablet(s) PO daily 08/02/2015 08/01/2015 Inactive Zithromax Z-Michael 250 mg tablet RxNorm: 042818 Tablet(s) PO 07/31/2015 10/27/2015 Inactive naproxen 500 mg tablet RxNorm: 883630 1 Tablet(s) PO BID 07/31/2015 02/25/2016 Inactive Lipitor 40 mg tablet RxNorm: 647855 TAKE 1 TABLET BY MOUTH DAILY 05/26/2015 05/19/2016 Inactive Generic For:LIPITOR 40MG 05/25/2015 10: 36:19 AM levothyroxine 200 mc g tablet RxNorm: 564526 TAKE 1 TABLET ONCE DA SUKUMAR WITH 50MCG TABLET TO MAKE 250MCG. 05/26/2015 07/30/2015 Inactive Generic For:SYNTHROID 200MC G TAB 05/25/2015 10:36:11 AM Invokana 100 mg tablet RxNorm: 5177958 1 Tablet(s) PO daily 03/15/2015 03/14/2015 Inactive Invokana 100 mg tablet RxNorm: 3481687 1 Tablet(s) PO daily 03/15/2015 11/24/2015 Inactive naproxen 500 mg tablet RxNorm: 879204 1 Tablet(s) PO BID 03/13/2015 07/30/2015 Inactive metformin 1,000 mg t ablet RxNorm: 174074 1 Tablet(s) PO BID 03/13/2015 08/21/2015 Inactive levothyroxine 200 mc g tablet RxNorm: 587759 TAKE 1 TABLET ONCE DA SUKUMAR WITH 50MCG TABLET TO MAKE 250MCG. 02/12/2015 05/12/2015 Inactive Generic For:SYNTHROID 200MC G TAB 02/12/2015 11:50:50 AM Lipitor 40 mg tablet RxNorm: 900880 TAKE 1 TABLET BY MOUTH DAILY 02/12/2015 05/12/2015 Inactive Generic For:LIPITOR 40MG 02/12/2015 11: 50:55 AM levothyroxine 200 mc g tablet RxNorm: 505166 1 Tablet(s) PO daily 11/19/2014 02/11/2015 Inactive levothyroxine 200 mc g tablet RxNorm: 617745 1 Tablet(s) PO daily 11/19/2014 11/18/2014 Inactive Lipitor 40 mg tablet RxNorm: 052614 1 Tablet(s) PO daily call and make appt. 11/19/2014 02/11/2015 In active Lipitor 40 mg tablet RxNorm: 986690 1 Tablet(s) PO daily call and make appt. 11/15/2014 11/18/2014 In active Lipitor 40 mg tablet RxNorm: 704737 1 Tablet(s) PO daily call and make appt. 11/15/2014 11/14/2014 In active [place] with Iro n oral RxNorm: oral No Start D ate Active Vitamin B-12 1,000 m cg/mL injection solution RxNorm: 921890 1 Milliliter(s) Inj m onthly No Start Date Active levothyroxine 200 mc g tablet RxNorm: 388078 1 Tablet(s) PO daily No Start Date 08/01/2015 Inactive Medication Administered Medication Codes Instruc tions Start Date Status cyanocobalamin (vit B-12) 1,000 mcg/mL injection solut ion RxNorm: 443696 Milliliter 06/29/2018 No longer Active Kenalog 40 mg/mL suspension for injection RxNorm: 3505538 Milliliter 03/23/2018 No longer Active cyanocobalamin (vit B-12) 1,000 mcg/mL injection solut ion RxNorm: 860643 Milliliter 02/07/2018 No longer Active cyanocobalamin (vit B-12) 1,000 mcg/mL injection solut ion RxNorm: 051465 Milliliter 01/13/2018 No longer Active cyanocobalamin (vit B-12) 1,000 mcg/mL injection solut ion RxNorm: 253368 Milliliter 12/06/2017 No longer Active cyanocobalamin (vit B-12) 1,000 mcg/mL injection solut ion RxNorm: 001898 1Milliliter 11/01/2017 No longer Active cyanocobalamin (vit B-12) 1,000 mcg/mL injection solut ion RxNorm: 227343 1Milliliter 09/28/2017 No longer Active Immunizations Vaccine [...] ICD- 10: D50.0 ICD-9: 280.0 09/27/2017 Other fdc (current) drug therapy ICD-10: Z79.899 ICD-9: V58.69 09/10/2017 Excessive and frequent menstruation with irregular cyc le ICD- 10: N92.1 ICD-9: 623.8 09/10/2017 Other specified hypothyroidism ICD-1 0: E03.8 ICD-9: 244.9 09/10/2017 Umbilical hernia without obstruction or gangrene ICD-10: K42.9 ICD-9: 553.1 10/13/2016 Other allergic rhinitis ICD-10: J30. 89 ICD-9: 477.8 01/14/2016 Wheezing ICD-10: R06.2 ICD-9: 786.07 01/14/2016 Other acute sinusitis ICD-10: J01.80 ICD-9: 461.8 01/14/2016 Mixed hyperlipidemia ICD-10: E78.2 ICD-9: 272.4 [...] & Hct Ord65 HCT 30.4 % 09/24/2017 Ferritin Ord22 FERRITIN 4.3 ng/mL 09/15/2017 B12 Ipj828 B12 124.00 pg/ml 09/15/2017 Cbc With Differential [...] 20.0 pg 09/15/2017 Cbc With Differential Ord2 [place]% 7.7 % 09/15/2017 Cbc With Differential Ord2 [...] 1.94 K/ul 09/15/2017 Cbc With Differential Ord2 [place] ABS# 0.8 K/ul 09/15/2017 Cbc With Differential Ord2 Eos ABS# 0.5 K/ul 09/15/2017 Cbc With Differential Ord2 Baso ABS# 0.1 K/ul 09/15/2017 Tibc Ord40 Iron 21 ug/dl 09/15/2017 Tibc Ord40 UIBC 432 ug/dL 09/15/2017 Tibc Ord40 TIBC 453 ug/dL 09/15/2017 Tibc Ord40 Fe-%Sat 4.6 % 09/15/2017 Folate Ord36 Folate 15.31 ng/mL 09/15/2017 Free T4 Zel561 FREE T4 0.88 ng/dL 09/10/2017 Tsh Ord6 TSH (3rd IS) 6.83 uIU/mL 09/10/2017 %Hba1C Cvb863 % HbA1c 38901-5 6.7 % 09/10/2017 %Hba1C Btn139 Gluc Ave 146 mg/dL 09/10/2017 Comp Metabolic Roe612 NA 139 mEq/L 09/10/2017 Comp Metabolic Tkf353 K 4.6 mEq/L 09/10/2017 Comp Metabolic Iyz350 CL 103 mEq/L 09/10/2017 Comp Metabolic Ncl131 CO2 28.0 mEq/L 09/10/2017 Comp Metabolic Qpm371 AN ION GAP 13 09/10/2017 Comp Metabolic Rou010 GL UCOSE 91 mg/dL 09/10/2017 Comp Metabolic Hiv388 Cr eat 0.6 mg/dL 09/10/2017 Comp Metabolic Awz184 eG FR 117 ml/min/1.73m2 08/20 Comp Metabolic Bsg105 BUN 22 mg/dL 09/10/2017 Comp Metabolic Lvg478 B/ C Ratio 37.3 Ratio 09/10/2017 Comp Metabolic Igi547 CA LCIUM 9.6 mg/dL 09/10/2017 Comp Metabolic Mtx220 AL K PHOS 100 U/L 09/10/2017 Comp Metabolic Qdw336 T(SGOT) 12 U/L 09/10/2017 Comp Metabolic Cce448 AL T(SGPT) 13 U/L 09/10/2017 Comp Metabolic Vew880 BI LI T 0.2 mg/dL 09/10/2017 Comp Metabolic Uwu737 AL BUMIN 3.9 g/dL 09/10/2017 Comp Metabolic Fkl149 TP RO 7.0 g/dL 09/10/2017 Comp Metabolic Mnw576 GL OB 3.1 g/dL 09/10/2017 Comp Metabolic Szm360 A/ G Ratio 1.3 Ratio 09/10/2017 Comp Metabolic Idp269 Os mo 280 mOsmo 09/10/2017 Cbc With Differential Ord2 WBC 8.92 [...] 20.5 pg 09/10/2017 Cbc With Differential Ord2 [place]% 8.0 % 09/10/2017 Cbc With Differential Ord2 [...] 2.10 K/ul 09/10/2017 Cbc With Differential Ord2 [place] ABS# 0.7 K/ul 09/10/2017 Cbc With Differential Ord2 Eos ABS# 0.5 K/ul 09/10/2017 Cbc With Differential Ord2 Baso ABS# 0.0 K/ul 09/10/2017 Tsh Ord6 hTSH II 0.55 uIU/mL 04/07/2017 Free T4 Kep935 FREE T4 1.53 ng/dL 04/07/2017 Tsh Ord6 hTSH II 0.55 uIU/mL 12/30/2016 Free T4 Oej393 FREE T4 1.15 ng/dL 12/30/2016 %Hba1C Bih767 % HbA1c 93636-8 6.0 % 10/01/2016 %Hba1C Tqu016 Gluc Ave 126 mg/dL 10/01/2016 Tsh Ord6 hTSH II 0.19 uIU/mL 10/01/2016 Comp Metabolic Xoy666 NA 139 mEq/L 10/01/2016 Comp Metabolic Yxd413 K 4.6 mEq/L 10/01/2016 Comp Metabolic Dui324 CL 102 mEq/L 10/01/2016 Comp Metabolic Jof434 CO2 28.0 mEq/L 10/01/2016 Comp Metabolic Lwq884 AN ION GAP 14 10/01/2016 Comp Metabolic Rvy282 GL UCOSE 93 mg/dL 10/01/2016 Comp Metabolic Lyy907 Cr eat 0.6 mg/dL 10/01/2016 Comp Metabolic Iqk477 eG FR 109 ml/min/1.73m2 09/19 Comp Metabolic Tzl585 BUN 20 mg/dL 10/01/2016 Comp Metabolic Nko263 B/ C Ratio 31.7 Ratio 10/01/2016 Comp Metabolic Koz624 CA LCIUM 9.8 mg/dL 10/01/2016 Comp Metabolic Caq230 AL K PHOS 114 U/L 10/01/2016 Comp Metabolic Gyo613 T(SGOT) 11 U/L 10/01/2016 Comp Metabolic Gkj647 AL T(SGPT) 12 U/L 10/01/2016 Comp Metabolic Dgs108 BI LI T 0.4 mg/dL 10/01/2016 Comp Metabolic Fja933 AL BUMIN 4.3 g/dL 10/01/2016 Comp Metabolic Lxu356 TP RO 7.2 g/dL 10/01/2016 Comp Metabolic Wam047 GL OB 2.9 g/dL 10/01/2016 Comp Metabolic Cyo976 A/ G Ratio 1.5 Ratio 10/01/2016 Comp Metabolic Wqn820 Os mo 280 mOsmo 10/01/2016 Free T4 Mxz767 FREE T4 1.37 ng/dL 10/01/2016 Lipid Ord30 [...] 88.4 fl 10/01/2016 Cbc With Differential Ord2 [place]% 8.5 % 10/01/2016 Cbc With Differential Ord2 MCH 27.9 pg 10/01/2016 Cbc With Differential Ord2 MCHC 31.6 pg 10/01/2016 Cbc With Differential Ord2 Eos% 4.5 % 10/01/2016 Cbc With Differential Ord2 Baso% 0.6 % 10/01/2016 Cbc With Differential Ord2 PLT 405 K/ul 10/01/2016 Cbc With Differential Ord2 RDW 14.9 % 10/01/2016 Cbc With Differential Ord2 Neut ABS# 4.97 K/ul 10/01/2016 Cbc With Differential Ord2 Lymph ABS# 1.69 K/ul 10/01/2016 Cbc With Differential Ord2 [place] ABS# 0.7 K/ul 10/01/2016 Cbc With Differential Ord2 Eos ABS# 0.4 K/ul 10/01/2016 Cbc With Differential Ord2 Baso ABS# 0.1 K/ul 10/01/2016 Ferritin Ord22 FERRITIN 5.8 ng/mL 04/06/2016 [...] 22.7 pg 04/06/2016 Cbc With Differential Ord2 [place]% 8.2 % 04/06/2016 Cbc With Differential Ord2 [...] 1.48 K/ul 04/06/2016 Cbc With Differential Ord2 [place] ABS# 0.5 K/ul 04/06/2016 Cbc With Differential Ord2 Eos ABS# 0.4 K/ul 04/06/2016 Cbc With Differential Ord2 Baso ABS# 0.0 K/ul 04/06/2016 Tibc Ord40 Iron 36 ug/dl 04/06/2016 Tibc Ord40 UIBC 373 ug/dL 04/06/2016 Tibc Ord40 TIBC 409 ug/dL 04/06/2016 Tibc Ord40 Fe-%Sat 8.8 % 04/06/2016 Cbc With Differential Ord2 WBC 13.14 K/ul [...] 23.2 pg 03/16/2016 Cbc With Differential Ord2 [place]% 4.8 % 03/16/2016 Cbc With Differential Ord2 MCHC 30.2 pg 03/16/2016 Cbc With Differential Ord2 Eos% 3.1 % 03/16/2016 Cbc With Differential Ord2 Baso% 0.3 % 03/16/2016 Cbc With Differential Ord2 PLT 463 K/ul 03/16/2016 Cbc With Differential Ord2 Neut ABS# 10.31 K/ul 03/16/2016 Cbc With Differential Ord2 RDW 16.8 % 03/16/2016 Cbc With Differential Ord2 Lymph ABS# 1.75 K/ul 03/16/2016 Cbc With Differential Ord2 [place] ABS# 0.6 K/ul 03/16/2016 Cbc With Differential Ord2 Eos ABS# 0.4 K/ul 03/16/2016 Cbc With Differential Ord2 Baso ABS# 0.0 K/ul 03/16/2016 Tsh Ord6 hTSH II 1.39 uIU/mL 03/16/2016 %Hba1C Vny629 % HbA1c 85576-0 7.0 % 03/16/2016 %Hba1C Vff310 Gluc Ave 154 mg/dL 03/16/2016 Free T4 Wwd704 FREE T4 1.16 ng/dL 03/16/2016 Comp Metabolic Alg719 NA 136 mEq/L 11/14/2015 Comp Metabolic Wju617 K 4.4 mEq/L 11/14/2015 Comp Metabolic Evx662 CL 101 mEq/L 11/14/2015 Comp Metabolic Hzc796 CO2 27.0 mEq/L 11/14/2015 Comp Metabolic Vmr402 AN ION GAP 12 11/14/2015 Comp Metabolic Aom340 GL UCOSE 107 mg/dL 11/14/2015 Comp Metabolic Qjw076 Cr eat 0.6 mg/dL 11/14/2015 Comp Metabolic Pmw334 eG FR 125 ml/min/1.73m2 10/20 Comp Metabolic Wnn957 BUN 14 mg/dL 11/14/2015 Comp Metabolic Kpe912 B/ C Ratio 25.0 Ratio 11/14/2015 Comp Metabolic Pbb157 CA LCIUM 9.6 mg/dL 11/14/2015 Comp Metabolic Lxt030 AL K PHOS 104 U/L 11/14/2015 Comp Metabolic Sjp177 T(SGOT) 16 U/L 11/14/2015 Comp Metabolic Zrr731 AL T(SGPT) 14 U/L 11/14/2015 Comp Metabolic Zhw109 BI LI T 0.3 mg/dL 11/14/2015 Comp Metabolic Pcj261 AL BUMIN 4.0 g/dL 11/14/2015 Comp Metabolic Cjr123 TP RO 7.2 g/dL 11/14/2015 Comp Metabolic Cnz030 GL OB 3.2 g/dL 11/14/2015 Comp Metabolic Vaa596 A/ G Ratio 1.3 Ratio 11/14/2015 Comp Metabolic Ncv966 Os mo 273 mOsmo 11/14/2015 %Hba1C Hao288 % HbA1c 81380-7 7.0 % 11/14/2015 %Hba1C Uir845 Gluc Ave 154 mg/dL 11/14/2015 Cbc With Differential Ord2 WBC 11.83 K/ul 11/14/2015 Cbc With Differential Ord2 RBC 4.76 M/ul 11/14/2015 Cbc With Differential Ord2 HGB 11.6 g/dl 11/14/2015 Cbc With Differential Ord2 Neut% 75.3 % 11/14/2015 Cbc With Differential Ord2 HCT 37.7 % 11/14/2015 Cbc With Differential Ord2 Lymph% 14.5 % 11/14/2015 Cbc With Differential Ord2 MCV 79.2 fl 11/14/2015 Cbc With Differential Ord2 [place]% 6.6 % 11/14/2015 Cbc With Differential Ord2 MCH 24.4 pg 11/14/2015 Cbc With Differential Ord2 MCHC 30.8 pg 11/14/2015 Cbc With Differential Ord2 Eos% 3.3 % 11/14/2015 Cbc With Differential Ord2 Baso% 0.3 % 11/14/2015 Cbc With Differential Ord2 PLT 477 K/ul 11/14/2015 Cbc With Differential Ord2 RDW 15.9 % 11/14/2015 Cbc With Differential Ord2 Neut ABS# 8.90 K/ul 11/14/2015 Cbc With Differential Ord2 Lymph ABS# 1.72 K/ul 11/14/2015 Cbc With Differential Ord2 [place] ABS# 0.8 K/ul 11/14/2015 Cbc With Differential Ord2 Eos ABS# 0.4 K/ul 11/14/2015 Cbc With Differential Ord2 Baso ABS# 0.0 K/ul 11/14/2015 Lipid Ord30 CHOL 153 mg/dL 11/14/2015 Lipid Ord30 HDL 44.0 mg/dl 11/14/2015 Lipid Ord30 TRIG 120 mg/dL 11/14/2015 Lipid Ord30 LDL 85 mg/dL 11/14/2015 Lipid Ord30 C/HDL 3.5 Ratio 11/14/2015 Free T4 Jhr872 FREE T4 0.79 ng/dL 11/14/2015 Tsh Ord6 hTSH II 10.28 uIU/mL 11/14/2015 Free T4 Eso890 FREE T4 0.49 ng/dL 08/02/2015 %Hba1C Pzl156 % HbA1c 38729-7 6.7 % 07/31/2015 %Hba1C Xki182 Gluc Ave 146 mg/dL 07/31/2015 Tsh Ord6 hTSH II 44.41 uIU/mL 07/31/2015 Free T4 Qzj399 FREE T4 1.25 ng/dL 03/13/2015 Comp Metabolic Maa496 NA 135 mEq/L 03/13/2015 Comp Metabolic Tyv014 K 4.5 mEq/L 03/13/2015 Comp Metabolic Jxg240 CL 99 mEq/L 03/13/2015 Comp Metabolic Gqm797 CO2 29.0 mEq/L 03/13/2015 Comp Metabolic Qfa720 AN ION GAP 12 03/13/2015 Comp Metabolic Vob335 GL UCOSE 98 mg/dL 03/13/2015 Comp Metabolic Grb278 Cr eat 0.7 mg/dL 03/13/2015 Comp Metabolic Tbf085 eG FR 100 ml/min/1.73m2 02/20 Comp Metabolic Hsk473 BUN 13 mg/dL 03/13/2015 Comp Metabolic Aly836 B/ C Ratio 19.1 Ratio 03/13/2015 Comp Metabolic Dry340 CA LCIUM 9.8 mg/dL 03/13/2015 Comp Metabolic Jbc208 AL K PHOS 91 U/L 03/13/2015 Comp Metabolic Bry730 T(SGOT) 10 U/L 03/13/2015 Comp Metabolic Ilk174 AL T(SGPT) 10 U/L 03/13/2015 Comp Metabolic Ebb991 BI LI T 0.4 mg/dL 03/13/2015 Comp Metabolic Jms974 AL BUMIN 4.1 g/dL 03/13/2015 Comp Metabolic Qnx198 TP RO 6.9 g/dL 03/13/2015 Comp Metabolic Oxv544 GL OB 2.8 g/dL 03/13/2015 Comp Metabolic Vns819 A/ G Ratio 1.5 Ratio 03/13/2015 Comp Metabolic Lgy587 Os mo 270 mOsmo 03/13/2015 Lipid Ord30 CHOL 146 mg/dL 03/13/2015 Lipid Ord30 HDL 40.0 mg/dl 03/13/2015 Lipid Ord30 TRIG 137 mg/dL 03/13/2015 Lipid Ord30 LDL 79 mg/dL 03/13/2015 Lipid Ord30 C/HDL 3.7 Ratio 03/13/2015 Cbc With Differential Ord2 WBC 8.1 [...] With Differential Ord2 RDW 14.9 % 03/13/2015 Tsh Ord6 hTSH II 0.95 uIU/mL 03/13/2015 %Hba1C Pif423 % HbA1c 91786-4 6.8 % 03/13/2015 %Hba1C Wwa726 Gluc Ave 148 mg/dL 03/13/2015 Review of Systems System Result Effective [...] Procedure Codes Date THER/PROPH/DIAG INJ SC/IM CPT-4: 26977 06/29/2018 THER/PROPH/DIAG INJ SC/IM CPT-4: 80811 03/23/2018 VITAMIN B12 INJECTION CPT-4: J3420 03/23/2018 THER/PROPH/DIAG INJ SC/IM CPT-4: 94588 02/07/2018 VITAMIN B12 INJECTION CPT-4: J3420 02/07/2018 THER/PROPH/DIAG INJ SC/IM CPT-4: 26333 01/13/2018 VITAMIN B12 INJECTION CPT-4: J3420 01/13/2018 VITAMIN B12 INJECTION CPT-4: J3420 12/06/2017 THER/PROPH/DIAG INJ SC/IM CPT-4: 68983 12/06/2017 THER/PROPH/DIAG INJ SC/IM CPT-4: 40432 11/01/2017 VITAMIN B12 INJECTION CPT-4: J3420 11/01/2017 THER/PROPH/DIAG INJ SC/IM CPT-4: 83540 09/28/2017 VITAMIN B12 INJECTION CPT-4: J3420 09/28/2017 Vital Signs Date Vital 11/01/2017 Heigh t: 5'3" 09/10/2017 Blood Pressure 1: 136/70 Code: 8480-6 BMI: 44.6 Code: 87356-5 Heart Rate 1: 91 bpm Height: 5'3" SpO2: 96% Weight: 252 lbs 10/13/2016 Blood Pressure 1: 134/82 Code: 8480-6 BMI: 43.6 Code: 84723-6 Heart Rate 1: 97 bpm Height: 5'3" SpO2: 97% Weight: 246 lbs 01/14/2016 Blood Pressure 1: 132/78 Code: 8480-6 BMI: 45.7 Code: 89136-7 Heart Rate 1: 90 bpm Height: 5'3" SpO2: 98% Weight: 258 lbs 07/31/2015 Blood Pressure 1: 142/80 Code: 8480-6 BMI: 45.7 Code: 11497-2 Heart Rate 1: 78 bpm Height: 5'3" SpO2: 96% Weight: 258 lbs 04/04/2015 Blood Pressure 1: 130/82 Code: 8480-6 BMI: 44.9 Code: 54778-8 Heart Rate 1: 90 bpm Height: 5'3" SpO2: 96% Weight: 253 lbs 5 oz 03/13/2015 Blood Pressure 1: 140/86 Code: 8480-6 BMI: 45.2 Code: 67975-8 Heart Rate 1: 87 bpm Height: 5'3" SpO2: 93% Weight: 255 lbs Functional Status No Functional Status data History of Present Illness Symptom Name Status Resu lt Effective Date Notes hypothyroid Location at the level of the thyroid 09/10/2017 None hypothyroid [employer] [place]atin 09/10/2017 None hypothyroid Onset and Resolution [...] of the thyroid 10/13/2016 None hypothyroid [employer] 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 PATIENT, LEVEL IV Diagnosis: Type 2 diabetes mellitus with hyperglycemia[ICD10: E11.65] Diagnosis: Other specified hypothyroidism[ICD10: E03.8] Diagnosis: Other fdc (current) drug therapy[ICD10: Z79.899] Diagnosis: Umbilical hernia without obstruction or gangrene[ICD10: K42.9] Anyi Cano MD, [facility] CPT-4: 01913 10/13/2016 [id number] EST. PATIENT, LEVEL IV Diagnosis: Other acute sinusitis[ICD10: J01.80] Diagnosis: Other allergic rhinitis[ICD10: J30.89] Diagnosis: Wheezing[ICD10: R06.2] Anyi Cano MD, [facility] CPT-4: 55100 01/14/2016 [id number] EST. PATIENT, LEVEL IV Diagnosis: Other fdc (current) drug therapy[ICD10: Z79.899] Diagnosis: Type 2 diabetes mellitus with hyperglycemia[ICD10: E11.65] Diagnosis: Other specified hypothyroidism[ICD10: E03.8] Diagnosis: Mixed hyperlipidemia[ICD10: E78.2] Anyi Cano MD, [facility] CPT-4: 22854 07/31/2015 ([id number]) [id number] EST. P ATIENT, LEVEL III Diagnosis: Achilles tendinitis, left leg[ICD10: M76.62] Beba Cano MD [facility] [facility] CPT-4: 24549 04/04/2015 (11104) OFFICE VISI T, NEW - LEVEL 4 Diagnosis: HYPERLIPIDEMIA[ICD9: 272.4] Diagnosis: DIABETES TYPE II[ICD9: 250.00] Diagnosis: HYPOTHYROIDISM[ICD9: 244.9] Diagnosis: ACHILLES TENDINITIS[ICD9: 726.71] Beba Cano MD, [facility] CPT-4: 65292 03/13/2015 Plan of Care Planned Activity Notes C odes Status Date Appointment: Injection 06/29/2018 Patient Education: Patient Medication Summary Completed 06/29/2018 Patient Education: Patient Medication Summary Completed 04/05/2018 Care Plan: [facility]CRE[facility]ING[facility]AMMOGRAPHYDIGITAL [facility] : 02764-3 Pending 04/05/2018 Appointment: Injection 03/23/2018 Patient Education: Patient Medication Summary Completed 03/23/2018 Appointment: Injection 02/07/2018 Patient Education: Patient Medication Summary Completed 02/07/2018 Appointment: Injection 01/13/2018 Patient Education: Patient Medication Summary Completed 01/13/2018 Patient Education: Patient Medication Summary Completed 01/12/2018 Care Plan: SCREENINGMAMMOGRAPHYDIGITAL [facility] : 58100-0 Pending 01/12/2018 Appointment: Injection 12/06/2017 Patient Education: [...] 09/14/2017 Care Plan: Referral Order SNOMED-CT : [id number] Pending 09/13/2017 Visit Plan: Diabetes Mellitus - [...] or pap done - will refer to [facility]PA[facility] due to pt symptoms and difficulty for exam - pt is to notify clinic with any changes or concerns. 09/10/2017 Appointment: Anyi Velázquez WPtel: [phone] [phone] (15 min) Moderate 09/10/2017 Patient Education: Patient Medication Summary Completed 09/10/2017 Referral: SuzannaDarioa Calin [address] [facility] Referral Completed 10/27/2016 Referral: Arvind Briseno1 [address] [facility] Referral Initiated 10/27/2016 Visit Plan: Umbilical hernia [...] of control. 10/13/2016 Appointment: Anyi Velázquez WPtel: [phone] (15 min) Moderate 10/13/2016 Patient Education: Patient Medication Summary Completed 10/13/2016 Care Plan: Referral Order SNOMED-CT : [id number] Pending 10/13/2016 Visit Plan: Sinusitis - Pt [...] allergy spray. 01/14/2016 Appointment: Melissa Newman WPtel: [phone] [place] (30 min) Complex 01/14/2016 Patient Education: Patient [...] not improving. 04/04/2015 Appointment: Beba Cano WPtel: [facility] (15 min) Moderate 04/04/2015 Patient Education: [...] that appt. 03/13/2015 Appointment: Beba Cano WPtel: [address] [place] [address] [place] ([place]) New Patient 03/13/2015 Patient Education: Patient Medication Summary Completed 03/13/2015 Patient Education: Hypertension Completed 03/13/2015 Patient Education: Patient Medication Summary Completed 10/24/2014 Referral: Katia Hunter WPtel: [address] [place] [address] they will call pt to schedule appt Initiated Referral: Katia Hunter WPtel: [address] [place] [address] Referral Initiated Referral: Arvind Briseno [address] [place] [address] Referral Initiated Instructions Comment . Achilles Tendoniti [...] or pap done - will refer to [facility] REPA[facility] due to pt symptoms and difficulty for [...]
--- OUTSIDE RECORDS SUMMARY | 2020-01-06 14:51 | XMS REPORT | CCD ---
Author Author Lucia Cano Organization Beba Cano MD, [facility] Address [address] [place] [address] Phone Care Team Providers Care Receiver Name Role Phone PP Unavailable CCM Unavailable Summary Purpose Interface Exchange Insurance Providers Payer name Policy type / Coverage type Covered green party ID Effective Begin Date Effective End Date WPS Medicare Part B Medicare Part B [id number] Unknown Unknown [employer] - Medicare Part B [id number] Unknown Unknown Family history Father Diagnosis Age [...] employed [employer] 04/04/[address]: 611175258 Never smoker 04/04/[address]: 355410119 Never drinks alcohol 04/04/2015 Has the patient ever used illegal drugs? Unknown Has never used illegal drugs 015 On Disability Unknown Yes 04/04/2015 Allergies, Adverse Reactions, Alerts Substance Reaction Codes Entered Date Inactivated Date Status * NO KNOWN DRUG JANINA RGIES Unknown 03/13/2015 No Inactive Date Active Past Medical History Illness Codes Condition Status Onset Date Resolved Date Encounter for screen ing mammogram for malignant neoplasm of breast ICD-9: V76.12 ICD-10: Z12.31 Active 11/03/2015 Unknown Other vitamin B12 de ficiency anemias ICD-9: 281.1 ICD-10: D51.8 Active 09/28/2017 Unknown Type 2 diabetes jamal itus with hyperglycemia ICD-9: 250.00 ICD-10: E11.65 Active 07/30/2015 Unknown 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) ICD-9: 280.0 ICD-10: D50.0 Active 09/14/2017 Unknown Excessive and freque nt menstruation with irregular cycle ICD-9: 623.8 ICD-10: N92.1 Active 09/10/2017 Unknown Other longterm (cur rent) drug therapy [...] Effectiv e Dates Condition Status Encounter for screen ing mammogram for malignant neoplasm of breast ICD-9: V76.12 ICD-10: Z12.31 11/03/2015 Active Other vitamin B12 de ficiency anemias ICD-9: 281.1 ICD-10: D51.8 09/28/2017 Active Type 2 diabetes jamal itus with hyperglycemia ICD-9: 250.00 ICD-10: E11.65 07/30/2015 Active 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) ICD-9: 280.0 ICD-10: D50.0 09/14/2017 Active Excessive and freque nt menstruation with irregular cycle ICD-9: 623.8 ICD-10: N92.1 09/10/2017 Active Other longterm (cur rent) drug therapy [...] Fill Instructions naproxen 500 mg tablet RxNorm: 364332 TAKE 1 TABLET BY MOUTH TWICE DAILY 05/19/2018 09/15/2018 Ac tive Generic For:NAPROSYN 500MG 05/19/2018 1 0:56:16 AM N O T I C E Last quantity doesn't match original quantity Kenalog 40 mg/mL debora pension for injection RxNorm: 3587805 Milliliter(s) Inj 03/23/2018 03/23/2018 In active levothyroxine 50 mcg tablet RxNorm: 786308 TAKE 1 TABLET BY MOUT H ONCE DAILY WITH 200MCG (250MCG TOTAL) 03/11/2018 06/08/2018 Active Generic For:SYNTHROID 50MCG TAB 03/11/2018 9:09:32 AM naproxen 500 mg tablet RxNorm: 184614 TAKE 1 TABLET BY MOUTH TWICE DAILY 02/25/2018 05/18/2018 In active Generic For:NAPROSYN 500MG 02/25/2018 1 2:39:53 PM N O T I C E Last quantity doesn't match original quantity cyanocobalamin (vit B-12) 1,000 mcg/mL injection solution RxNorm: 011263 Milliliter(s) Inj 02/07/2018 02/07/2018 Inactive metformin 1,000 mg t ablet RxNorm: 838412 TAKE 1 TABLET BY MOUT H TWICE A DAY 01/19/2018 01/13/2019 Ac tive Generic For:*GLUCOPHAGE 1000MG 01/20/20 10:20:50 AM cyanocobalamin (vit B-12) 1,000 mcg/mL injection solution RxNorm: 667984 Milliliter(s) Inj 01/13/2018 01/13/2018 Inactive cyanocobalamin (vit B-12) 1,000 mcg/mL injection solution RxNorm: 423942 Milliliter(s) Inj 12/06/2017 12/06/2017 Inactive Invokana 300 mg tablet RxNorm: 3558413 TAKE 1 TABLET BY MOUTH DAILY 11/08/2017 11/02/2018 Ac tive 11/05/2017 5:10:44 PM Lipitor 40 mg tablet RxNorm: 316349 TAKE 1 TABLET BY MOUTH DAILY 11/08/2017 11/02/2018 Active Generic For:LIPITOR 40MG 11/05/2017 5:1 0:24 PM naproxen 500 mg tablet RxNorm: 966815 TAKE 1 TABLET BY MOUTH TWICE DAILY 11/08/2017 02/05/2018 In active Generic For:NAPROSYN 500MG 11/08/2017 9 :14:56 AM N O T I C E Last quantity doesn't match original quantity levothyroxine 50 mcg tablet RxNorm: 965298 1 Tablet(s) PO daily to take with the 200mcg daily to equal 250mcg daily 11/08/2017 02/05/2018 Inactive cyanocobalamin (vit B-12) 1,000 mcg/mL injection solution RxNorm: 201633 1 Milliliter(s) Inj 11/01/2017 11/01/2017 Inactive cyanocobalamin (vit B-12) 1,000 mcg/mL injection solution RxNorm: 481198 1 Milliliter(s) Inj 09/28/2017 09/28/2017 Inactive levothyroxine 200 mc g tablet RxNorm: 632440 1 Tablet(s) PO daily to take with the 50mcg daily to equal 250mcg daily 09/14/2017 06/10/2018 Active levothyroxine 50 mcg tablet RxNorm: 773226 1 Tablet(s) PO daily to take with the 200mcg daily to equal 250mcg daily 09/14/2017 11/07/2017 Inactive naproxen 500 mg tablet RxNorm: 469736 TAKE 1 TABLET BY MOUTH TWICE DAILY 08/05/2017 11/02/2017 In active Generic For:NAPROSYN 500MG 08/05/2017 9 :04:47 AM N O T I C E Last quantity doesn't match original quantity naproxen 500 mg tablet RxNorm: 347384 TAKE 1 TABLET BY MOUTH TWICE DAILY 04/19/2017 08/04/2017 In active Generic For:NAPROSYN 500MG 04/19/2017 1 :49:28 PM Lipitor 40 mg tablet RxNorm: 497399 TAKE 1 TABLET BY MOUTH DAILY 03/22/2017 11/07/2017 Inactive Generic For:LIPITOR 40MG 03/20/2017 9:0 5:49 AM levothyroxine 25 mcg tablet RxNorm: 533585 1 Tablet(s) PO daily to take with her 200mcg to equal 225 mcg daily 03/22/2017 04/08/2017 Inactive Invokana 300 mg tablet RxNorm: 6334817 TAKE 1 TABLET BY MOUTH DAILY 12/21/2016 09/16/2017 In active 12/21/2016 9:03:03 AM levothyroxine 200 mc g tablet RxNorm: 602223 1 Tablet(s) PO daily 12/21/2016 09/13/2017 Inactive metformin 1,000 mg t ablet RxNorm: 730157 TAKE 1 TABLET BY MOUT H TWICE A DAY 11/26/2016 11/20/2017 In active Generic For:*GLUCOPHAGE 1000MG 11/27/19 17 1:05:15 PM naproxen 500 mg tablet RxNorm: 708314 1 Tablet(s) PO BID 10/21/2016 04/18/2017 Inactive levothyroxine 25 mcg tablet RxNorm: 210950 1 Tablet(s) PO daily to take with her 200mcg to equal 225 mcg daily 10/13/2016 01/10/2017 Inactive levothyroxine 50 mcg tablet RxNorm: 280035 1 Tablet(s) PO daily 09/21/2016 10/12/2016 Inactive Invokana 300 mg tablet RxNorm: 8289417 1 Tablet(s) PO daily 09/21/2016 12/19/2016 Inactive metformin 1,000 mg t ablet RxNorm: 424661 TAKE 1 TABLET BY MOUT H TWICE A DAY 09/21/2016 11/25/2016 In active Generic For:*GLUCOPHAGE 1000MG 09/22/19 17 8:53:30 AM levothyroxine 200 mc g tablet RxNorm: 676854 1 Tablet(s) PO daily 09/21/2016 12/19/2016 Inactive Lipitor 40 mg tablet RxNorm: 910967 TAKE 1 TABLET BY MOUTH DAILY 06/23/2016 03/19/2017 Inactive Generic For:LIPITOR 40MG 06/23/2016 9:1 2:42 AM levothyroxine 50 mcg tablet RxNorm: 780348 1 Tablet(s) PO daily TAKE 1 TABLET BY MOUTH DAILY 06/23/2016 09/20/2016 Inactive Generic For:SYNTHROID 50MCG TAB 06/23/2016 9:22:58 AM metformin 1,000 mg t ablet RxNorm: 211702 TAKE 1 TABLET BY MOUT H TWICE A DAY 06/23/2016 09/20/2016 In active Generic For:*GLUCOPHAGE 1000MG 06/23/19 17 9:12:46 AM levothyroxine 200 mc g tablet RxNorm: 801358 1 Tablet(s) PO daily 04/24/2016 08/21/2016 Inactive naproxen 500 mg tablet RxNorm: 260335 1 Tablet(s) PO BID 03/26/2016 10/20/2016 Inactive levothyroxine 50 mcg tablet RxNorm: 981993 1 Tablet(s) PO daily 03/25/2016 06/23/2016 Inactive Flonase Allergy Reli ef 50 mcg/actuation nasal spray,suspension RxNorm: 2674755 1 Hannah NASAL BID 01/14/2016 No Stop Date Active prednisone 20 mg tablet RxNorm: 092980 2 Tablet(s) PO daily 01/14/2016 01/16/2016 Inactive Zithromax Z-Michael 250 mg tablet RxNorm: 662931 Tablet(s) PO 01/14/2016 02/25/2016 Inactive levothyroxine 200 mc g tablet RxNorm: 142122 1 Tablet(s) PO daily 11/25/2015 03/23/2016 Inactive levothyroxine 50 mcg tablet RxNorm: 561920 1 Tablet(s) PO daily 11/25/2015 03/23/2016 Inactive Invokana 300 mg tablet RxNorm: 8219357 1 Tablet(s) PO daily 11/25/2015 09/20/2016 Inactive metformin 1,000 mg t ablet RxNorm: 507726 TAKE 1 TABLET BY MOUT H TWICE A DAY 08/22/2015 05/17/2016 In active Generic For:*GLUCOPHAGE 1000MG N O T I C E PRESCRIPTION PREVIOUSLY AUTHORIZED BY DOCTOR:PEDRO SIMPSON levothyroxine 200 mc g tablet RxNorm: 566985 1 Tablet(s) PO daily 08/02/2015 11/24/2015 Inactive levothyroxine 25 mcg tablet RxNorm: 660039 1 Tablet(s) PO daily 08/02/2015 11/24/2015 Inactive levothyroxine 25 mcg tablet RxNorm: 769110 1 Tablet(s) PO daily 08/02/2015 08/01/2015 Inactive Zithromax Z-Michael 250 mg tablet RxNorm: 883355 Tablet(s) PO 07/31/2015 10/27/2015 Inactive naproxen 500 mg tablet RxNorm: 151178 1 Tablet(s) PO BID 07/31/2015 02/25/2016 Inactive Lipitor 40 mg tablet RxNorm: 610953 TAKE 1 TABLET BY MOUTH DAILY 05/26/2015 05/19/2016 Inactive Generic For:LIPITOR 40MG 05/25/2015 10: 36:19 AM levothyroxine 200 mc g tablet RxNorm: 354890 TAKE 1 TABLET ONCE DA SUKUMAR WITH 50MCG TABLET TO MAKE 250MCG. 05/26/2015 07/30/2015 Inactive Generic For:SYNTHROID 200MC G TAB 05/25/2015 10:36:11 AM Invokana 100 mg tablet RxNorm: 1047255 1 Tablet(s) PO daily 03/15/2015 03/14/2015 Inactive Invokana 100 mg tablet RxNorm: 7868115 1 Tablet(s) PO daily 03/15/2015 11/24/2015 Inactive naproxen 500 mg tablet RxNorm: 622010 1 Tablet(s) PO BID 03/13/2015 07/30/2015 Inactive metformin 1,000 mg t ablet RxNorm: 362151 1 Tablet(s) PO BID 03/13/2015 08/21/2015 Inactive levothyroxine 200 mc g tablet RxNorm: 596927 TAKE 1 TABLET ONCE DA SUKUMAR WITH 50MCG TABLET TO MAKE 250MCG. 02/12/2015 05/12/2015 Inactive Generic For:SYNTHROID 200MC G TAB 02/12/2015 11:50:50 AM Lipitor 40 mg tablet RxNorm: 910132 TAKE 1 TABLET BY MOUTH DAILY 02/12/2015 05/12/2015 Inactive Generic For:LIPITOR 40MG 02/12/2015 11: 50:55 AM levothyroxine 200 mc g tablet RxNorm: 862893 1 Tablet(s) PO daily 11/19/2014 02/11/2015 Inactive levothyroxine 200 mc g tablet RxNorm: 693791 1 Tablet(s) PO daily 11/19/2014 11/18/2014 Inactive Lipitor 40 mg tablet RxNorm: 587680 1 Tablet(s) PO daily call and make appt. 11/19/2014 02/11/2015 In active Lipitor 40 mg tablet RxNorm: 143393 1 Tablet(s) PO daily call and make appt. 11/15/2014 11/18/2014 In active Lipitor 40 mg tablet RxNorm: 376373 1 Tablet(s) PO daily call and make appt. 11/15/2014 11/14/2014 In active Flintstones with Iro n oral RxNorm: oral No Start D ate Active Vitamin B-12 1,000 m cg/mL injection solution RxNorm: 461994 1 Milliliter(s) Inj m onthly No Start Date Active levothyroxine 200 mc g tablet RxNorm: 712789 1 Tablet(s) PO daily No Start Date 08/01/2015 Inactive Medication Administered Medication Codes Instruc tions Start Date Status Kenalog 40 mg/mL suspension for injection RxNorm: 8438928 Milliliter 03/23/2018 No longer Active cyanocobalamin (vit B-12) 1,000 mcg/mL injection solut ion RxNorm: 612932 Milliliter 02/07/2018 No longer Active cyanocobalamin (vit B-12) 1,000 mcg/mL injection solut ion RxNorm: 824898 Milliliter 01/13/2018 No longer Active cyanocobalamin (vit B-12) 1,000 mcg/mL injection solut ion RxNorm: 605860 Milliliter 12/06/2017 No longer Active cyanocobalamin (vit B-12) 1,000 mcg/mL injection solut ion RxNorm: 848680 1Milliliter 11/01/2017 No longer Active cyanocobalamin (vit B-12) 1,000 mcg/mL injection solut ion RxNorm: 436244 1Milliliter 09/28/2017 No longer Active Immunizations Vaccine Codes Date Status Influenza CVX: 141 03/21 completed Assessments Condition Codes Effectiv e Dates Encounter for screening mammogram for ma lignant neoplasm of breast ICD-10: Z12.31 ICD-9: V76.12 04/05/2018 Other vitamin B12 deficiency anemias ICD-10: D51.8 ICD-9: 281.1 03/23/2018 Type 2 diabetes mellitus with hyperglycemia ICD-10: E11.65 ICD-9: 250.00 02/07/2018 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) ICD- 10: D50.0 ICD-9: 280.0 09/27/2017 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 ICD-10: Z79.899 ICD-9: V58.69 [...] Hct Ord65 HCT 30.4 % 09/24/2017 B12 Xio734 B12 124.00 pg/ml 09/15/2017 Cbc With Differential Ord2 WBC 10.22 K/ul 09/15/2017 Cbc With Differential Ord2 RBC 4.40 M/ul 09/15/2017 Cbc With Differential Ord2 HGB 8.8 g/dl 09/15/2017 Cbc With Differential Ord2 Neut% 67.6 % 09/15/2017 Cbc With Differential Ord2 HCT 31.4 % 09/15/2017 Cbc With Differential Ord2 Lymph% 19.0 % 09/15/2017 Cbc With Differential Ord2 MCV 71.4 fl 09/15/2017 Cbc With Differential Ord2 MCH 20.0 pg 09/15/2017 Cbc With Differential Ord2 Harmon% 7.7 % 09/15/2017 Cbc With Differential Ord2 MCHC 28.0 pg 09/15/2017 Cbc With Differential Ord2 Eos% 5.1 % 09/15/2017 Cbc With Differential Ord2 PLT 606 K/ul 09/15/2017 Cbc With Differential Ord2 Baso% 0.6 % 09/15/2017 Cbc With Differential Ord2 Neut ABS# 6.91 K/ul 09/15/2017 Cbc With Differential Ord2 RDW 17.7 % 09/15/2017 Cbc With Differential Ord2 Lymph ABS# 1.94 K/ul 09/15/2017 Cbc With Differential Ord2 Harmon ABS# 0.8 K/ul 09/15/2017 Cbc With Differential Ord2 Eos ABS# 0.5 K/ul 09/15/2017 Cbc With Differential Ord2 Baso ABS# 0.1 K/ul 09/15/2017 Tibc Ord40 Iron 21 ug/dl 09/15/2017 Tibc Ord40 UIBC 432 ug/dL 09/15/2017 Tibc Ord40 TIBC 453 ug/dL 09/15/2017 Tibc Ord40 Fe-%Sat 4.6 % 09/15/2017 Folate Ord36 Folate 15.31 ng/mL 09/15/2017 Ferritin Ord22 FERRITIN 4.3 ng/mL 09/15/2017 Free T4 Ypa240 FREE T4 0.88 ng/dL 09/10/2017 %Hba1C Pvk494 % HbA1c 86986-0 6.7 % 09/10/2017 %Hba1C Dck281 Gluc Ave 146 mg/dL 09/10/2017 Cbc With [...] 71.8 fl 09/10/2017 Cbc With Differential Ord2 Harmon% 8.0 % 09/10/2017 Cbc With Differential Ord2 MCH 20.5 pg 09/10/2017 Cbc With Differential Ord2 Eos% 5.3 % 09/10/2017 Cbc With Differential Ord2 MCHC 28.6 pg 09/10/2017 Cbc With Differential Ord2 Baso% 0.3 % 09/10/2017 Cbc With Differential Ord2 PLT 576 K/ul 09/10/2017 Cbc With Differential Ord2 Neut ABS# 5.61 K/ul 09/10/2017 Cbc With Differential Ord2 RDW 17.4 % 09/10/2017 Cbc With Differential Ord2 Lymph ABS# 2.10 K/ul 09/10/2017 Cbc With Differential Ord2 Harmon ABS# 0.7 K/ul 09/10/2017 Cbc With Differential Ord2 Eos ABS# 0.5 K/ul 09/10/2017 Cbc With Differential Ord2 Baso ABS# 0.0 K/ul 09/10/2017 Comp Metabolic Kyb044 NA 139 mEq/L 09/10/2017 Comp Metabolic Ieq587 K 4.6 mEq/L 09/10/2017 Comp Metabolic Jat743 CL 103 mEq/L 09/10/2017 Comp Metabolic Aoq591 CO2 28.0 mEq/L 09/10/2017 Comp Metabolic Mjx955 AN ION GAP 13 09/10/2017 Comp Metabolic Lnr412 GL UCOSE 91 mg/dL 09/10/2017 Comp Metabolic Amg045 Cr eat 0.6 mg/dL 09/10/2017 Comp Metabolic Fsl088 eG FR 117 ml/min/1.73m2 08/20 Comp Metabolic Rjm883 BUN 22 mg/dL 09/10/2017 Comp Metabolic Emj511 B/ C Ratio 37.3 Ratio 09/10/2017 Comp Metabolic Sns786 CA LCIUM 9.6 mg/dL 09/10/2017 Comp Metabolic Lue532 AL K PHOS 100 U/L 09/10/2017 Comp Metabolic Txi999 T(SGOT) 12 U/L 09/10/2017 Comp Metabolic Hkg116 AL T(SGPT) 13 U/L 09/10/2017 Comp Metabolic Nxz788 BI LI T 0.2 mg/dL 09/10/2017 Comp Metabolic Hjz052 AL BUMIN 3.9 g/dL 09/10/2017 Comp Metabolic Lqf401 TP RO 7.0 g/dL 09/10/2017 Comp Metabolic Bpc285 GL OB 3.1 g/dL 09/10/2017 Comp Metabolic Kig020 A/ G Ratio 1.3 Ratio 09/10/2017 Comp Metabolic Ifu824 Os mo 280 mOsmo 09/10/2017 Tsh Ord6 TSH (3rd IS) 6.83 uIU/mL 09/10/2017 Free T4 Fsx691 FREE T4 1.53 ng/dL 04/07/2017 Tsh Ord6 hTSH II 0.55 uIU/mL 04/07/2017 Tsh Ord6 hTSH II 0.55 uIU/mL 12/30/2016 Free T4 Yvd917 FREE T4 1.15 ng/dL 12/30/2016 %Hba1C Bjn826 % HbA1c 00418-2 6.0 % 10/01/2016 %Hba1C Zek546 Gluc Ave 126 mg/dL 10/01/2016 Tsh Ord6 hTSH II 0.19 uIU/mL 10/01/2016 Comp Metabolic Tga159 NA 139 mEq/L 10/01/2016 Comp Metabolic Tfi233 K 4.6 mEq/L 10/01/2016 Comp Metabolic Dat985 CL 102 mEq/L 10/01/2016 Comp Metabolic Xrd277 CO2 28.0 mEq/L 10/01/2016 Comp Metabolic Oko324 AN ION GAP 14 10/01/2016 Comp Metabolic Hen765 GL UCOSE 93 mg/dL 10/01/2016 Comp Metabolic Bun755 Cr eat 0.6 mg/dL 10/01/2016 Comp Metabolic Orb257 eG FR 109 ml/min/1.73m2 09/19 Comp Metabolic Eli577 BUN 20 mg/dL 10/01/2016 Comp Metabolic Ofx234 B/ C Ratio 31.7 Ratio 10/01/2016 Comp Metabolic Pcy024 CA LCIUM 9.8 mg/dL 10/01/2016 Comp Metabolic Cgg871 AL K PHOS 114 U/L 10/01/2016 Comp Metabolic Epy020 T(SGOT) 11 U/L 10/01/2016 Comp Metabolic Roo105 AL T(SGPT) 12 U/L 10/01/2016 Comp Metabolic Wrd995 BI LI T 0.4 mg/dL 10/01/2016 Comp Metabolic Cnq873 AL BUMIN 4.3 g/dL 10/01/2016 Comp Metabolic Akm734 TP RO 7.2 g/dL 10/01/2016 Comp Metabolic Czj291 GL OB 2.9 g/dL 10/01/2016 Comp Metabolic Osw106 A/ G Ratio 1.5 Ratio 10/01/2016 Comp Metabolic Khx022 Os mo 280 mOsmo 10/01/2016 Free T4 Cxa243 FREE T4 1.37 ng/dL 10/01/2016 Lipid Ord30 [...] 27.9 pg 10/01/2016 Cbc With Differential Ord2 Harmon% 8.5 % 10/01/2016 Cbc With Differential Ord2 [...] 1.69 K/ul 10/01/2016 Cbc With Differential Ord2 Harmon ABS# 0.7 K/ul 10/01/2016 Cbc With Differential [...] 22.7 pg 04/06/2016 Cbc With Differential Ord2 Harmon% 8.2 % 04/06/2016 Cbc With Differential Ord2 [...] 1.48 K/ul 04/06/2016 Cbc With Differential Ord2 Harmon ABS# 0.5 K/ul 04/06/2016 Cbc With Differential Ord2 Eos ABS# 0.4 K/ul 04/06/2016 Cbc With Differential Ord2 Baso ABS# 0.0 K/ul 04/06/2016 Ferritin Ord22 FERRITIN 5.8 ng/mL 04/06/2016 Free T4 Yiq990 FREE T4 1.16 ng/dL 03/16/2016 %Hba1C Lqs529 % HbA1c 52202-3 7.0 % 03/16/2016 %Hba1C Atl169 Gluc Ave 154 mg/dL 03/16/2016 Cbc With [...] 23.2 pg 03/16/2016 Cbc With Differential Ord2 Harmon% 4.8 % 03/16/2016 Cbc With Differential Ord2 [...] 1.75 K/ul 03/16/2016 Cbc With Differential Ord2 Harmon ABS# 0.6 K/ul 03/16/2016 Cbc With Differential Ord2 Eos ABS# 0.4 K/ul 03/16/2016 Cbc With Differential Ord2 Baso ABS# 0.0 K/ul 03/16/2016 Tsh Ord6 hTSH II 1.39 uIU/mL 03/16/2016 Tsh Ord6 hTSH II 10.28 uIU/mL 11/14/2015 Free T4 Jbn373 FREE T4 0.79 ng/dL 11/14/2015 Lipid Ord30 [...] 24.4 pg 11/14/2015 Cbc With Differential Ord2 Harmon% 6.6 % 11/14/2015 Cbc With Differential Ord2 [...] 1.72 K/ul 11/14/2015 Cbc With Differential Ord2 Harmon ABS# 0.8 K/ul 11/14/2015 Cbc With Differential Ord2 Eos ABS# 0.4 K/ul 11/14/2015 Cbc With Differential Ord2 Baso ABS# 0.0 K/ul 11/14/2015 Comp Metabolic Liu732 NA 136 mEq/L 11/14/2015 Comp Metabolic Buy407 K 4.4 mEq/L 11/14/2015 Comp Metabolic Uwt181 CL 101 mEq/L 11/14/2015 Comp Metabolic Gkm737 CO2 27.0 mEq/L 11/14/2015 Comp Metabolic Fbi385 AN ION GAP 12 11/14/2015 Comp Metabolic Jlm312 GL UCOSE 107 mg/dL 11/14/2015 Comp Metabolic Lzz193 Cr eat 0.6 mg/dL 11/14/2015 Comp Metabolic Ddh017 eG FR 125 ml/min/1.73m2 10/20 Comp Metabolic Yai676 BUN 14 mg/dL 11/14/2015 Comp Metabolic Tqk291 B/ C Ratio 25.0 Ratio 11/14/2015 Comp Metabolic Ydz943 CA LCIUM 9.6 mg/dL 11/14/2015 Comp Metabolic Gje893 AL K PHOS 104 U/L 11/14/2015 Comp Metabolic Wab848 T(SGOT) 16 U/L 11/14/2015 Comp Metabolic Prt409 AL T(SGPT) 14 U/L 11/14/2015 Comp Metabolic Phr362 BI LI T 0.3 mg/dL 11/14/2015 Comp Metabolic Oyj132 AL BUMIN 4.0 g/dL 11/14/2015 Comp Metabolic Wvi450 TP RO 7.2 g/dL 11/14/2015 Comp Metabolic Hro189 GL OB 3.2 g/dL 11/14/2015 Comp Metabolic Cpp732 A/ G Ratio 1.3 Ratio 11/14/2015 Comp Metabolic Vtc274 Os mo 273 mOsmo 11/14/2015 %Hba1C Kzj790 % HbA1c 89626-1 7.0 % 11/14/2015 %Hba1C Qob458 Gluc Ave 154 mg/dL 11/14/2015 Free T4 Uij344 FREE T4 0.49 ng/dL 08/02/2015 Tsh Ord6 hTSH II 44.41 uIU/mL 07/31/2015 %Hba1C Gcz092 % HbA1c 25712-1 6.7 % 07/31/2015 %Hba1C Oai916 Gluc Ave 146 mg/dL 07/31/2015 Cbc With [...] Differential Ord2 RDW 14.9 % 03/13/2015 %Hba1C Xbb006 % HbA1c 66519-3 6.8 % 03/13/2015 %Hba1C Kmq312 Gluc Ave 148 mg/dL 03/13/2015 Tsh Ord6 hTSH II 0.95 uIU/mL 03/13/2015 Lipid Ord30 CHOL 146 mg/dL 03/13/2015 Lipid Ord30 HDL 40.0 mg/dl 03/13/2015 Lipid Ord30 TRIG 137 mg/dL 03/13/2015 Lipid Ord30 LDL 79 mg/dL 03/13/2015 Lipid Ord30 C/HDL 3.7 Ratio 03/13/2015 Comp Metabolic Skk523 NA 135 mEq/L 03/13/2015 Comp Metabolic Dfs964 K 4.5 mEq/L 03/13/2015 Comp Metabolic Nak530 CL 99 mEq/L 03/13/2015 Comp Metabolic Rsm528 CO2 29.0 mEq/L 03/13/2015 Comp Metabolic Jwq925 AN ION GAP 12 03/13/2015 Comp Metabolic Pbg066 GL UCOSE 98 mg/dL 03/13/2015 Comp Metabolic Jjl708 Cr eat 0.7 mg/dL 03/13/2015 Comp Metabolic Wya889 eG FR 100 ml/min/1.73m2 02/20 Comp Metabolic Dne231 BUN 13 mg/dL 03/13/2015 Comp Metabolic Bkx124 B/ C Ratio 19.1 Ratio 03/13/2015 Comp Metabolic Fkq533 CA LCIUM 9.8 mg/dL 03/13/2015 Comp Metabolic Vbq452 AL K PHOS 91 U/L 03/13/2015 Comp Metabolic Ywy361 T(SGOT) 10 U/L 03/13/2015 Comp Metabolic Uug233 AL T(SGPT) 10 U/L 03/13/2015 Comp Metabolic Kuv942 BI LI T 0.4 mg/dL 03/13/2015 Comp Metabolic Mio021 AL BUMIN 4.1 g/dL 03/13/2015 Comp Metabolic Xbz966 TP RO 6.9 g/dL 03/13/2015 Comp Metabolic Vin477 GL OB 2.8 g/dL 03/13/2015 Comp Metabolic Xua300 A/ G Ratio 1.5 Ratio 03/13/2015 Comp Metabolic Kqn103 Os mo 270 mOsmo 03/13/2015 Free T4 Bve986 FREE T4 1.25 ng/dL 03/13/2015 Review of [...] Procedure Codes Date THER/PROPH/DIAG INJ SC/IM CPT-4: 48170 03/23/2018 VITAMIN B12 INJECTION CPT-4: J3420 03/23/2018 THER/PROPH/DIAG INJ SC/IM CPT-4: 72647 02/07/2018 VITAMIN B12 INJECTION CPT-4: J3420 02/07/2018 THER/PROPH/DIAG INJ SC/IM CPT-4: 46323 01/13/2018 VITAMIN B12 INJECTION CPT-4: J3420 01/13/2018 VITAMIN B12 INJECTION CPT-4: J3420 12/06/2017 THER/PROPH/DIAG INJ SC/IM CPT-4: 56843 12/06/2017 THER/PROPH/DIAG INJ SC/IM CPT-4: 42674 11/01/2017 VITAMIN B12 INJECTION CPT-4: J3420 11/01/2017 THER/PROPH/DIAG INJ SC/IM CPT-4: 45832 09/28/2017 VITAMIN B12 INJECTION CPT-4: J3420 09/28/2017 Vital Signs Date Vital 11/01/2017 Heigh t: 5'3" 09/10/2017 Blood Pressure 1: 136/70 Code: 8480-6 BMI: 44.6 Code: 56188-6 Heart Rate 1: 91 bpm Height: 5'3" SpO2: 96% Weight: 252 lbs 10/13/2016 Blood Pressure 1: 134/82 Code: 8480-6 BMI: 43.6 Code: 04796-4 Heart Rate 1: 97 bpm Height: 5'3" SpO2: 97% Weight: 246 lbs 01/14/2016 Blood Pressure 1: 132/78 Code: 8480-6 BMI: 45.7 Code: 29555-2 Heart Rate 1: 90 bpm Height: 5'3" SpO2: 98% Weight: 258 lbs 07/31/2015 Blood Pressure 1: 142/80 Code: 8480-6 BMI: 45.7 Code: 99278-7 Heart Rate 1: 78 bpm Height: 5'3" SpO2: 96% Weight: 258 lbs 04/04/2015 Blood Pressure 1: 130/82 Code: 8480-6 BMI: 44.9 Code: 75148-6 Heart Rate 1: 90 bpm Height: 5'3" SpO2: 96% Weight: 253 lbs 5 oz 03/13/2015 Blood Pressure 1: 140/86 Code: 8480-6 BMI: 45.2 Code: 64151-2 Heart Rate 1: 87 bpm Height: 5'3" SpO2: 93% Weight: 255 lbs Functional Status No Functional Status data History of Present Illness Symptom Name Status Resu lt Effective Date Notes hypothyroid Location at the level of the thyroid 09/10/2017 None 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 PATIENT, LEVEL IV Diagnosis: Type 2 diabetes mellitus with hyperglycemia[ICD10: E11.65] Diagnosis: Other specified hypothyroidism[ICD10: E03.8] Diagnosis: Other longterm (current) drug therapy[ICD10: Z79.899] Diagnosis: Umbilical hernia without obstruction or gangrene[ICD10: K42.9] Anyi Cano MD, [facility] CPT-4: 81759 10/13/2016 [id number] EST. PATIENT, LEVEL IV Diagnosis: Other acute sinusitis[ICD10: J01.80] Diagnosis: Other allergic rhinitis[ICD10: J30.89] Diagnosis: Wheezing[ICD10: R06.2] Anyi Cano MD, [facility] CPT-4: 26936 01/14/2016 [id number] EST. 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 P ATIENT, LEVEL III Diagnosis: Achilles tendinitis, left leg[ICD10: M76.62] Beba Cano MD, [facility] CPT-4: 47655 04/04/2015 ([id number]) OFFICE VISI T, NEW - LEVEL 4 Diagnosis: HYPERLIPIDEMIA[ICD9: 272.4] Diagnosis: DIABETES TYPE II[ICD9: 250.00] Diagnosis: HYPOTHYROIDISM[ICD9: 244.9] Diagnosis: ACHILLES TENDINITIS[ICD9: 726.71] Beba Cano MD, [facility] CPT-4: 83918 03/13/2015 Plan of Care Planned Activity Notes C odes Status Date Patient Education: Patient Medication Summary Completed 04/05/2018 Care Plan: SCREENINGMAMMOGRAPHYDIGITAL LOINC : 54117-2 Pending 04/05/2018 Appointment: Injection 03/23/2018 Patient Education: Patient Medication Summary Completed 03/23/2018 Appointment: Injection 02/07/2018 Patient Education: Patient Medication Summary Completed 02/07/2018 Appointment: Injection 01/13/2018 Patient Education: Patient Medication Summary Completed 01/13/2018 Patient Education: Patient Medication Summary Completed 01/12/2018 Care Plan: SCREENINGMAMMOGRAPHYDIGITAL LOINC : 31778-9 Pending 01/12/2018 Appointment: Injection 12/06/2017 Patient Education: [...] 09/14/2017 Care Plan: Referral Order SNOMED-CT : [id number] Pending 09/13/2017 Visit Plan: Diabetes Mellitus - I albert pereze recommended for the patient to have follow [...] pap done - will refer to [facility] due to pt symptoms and difficulty for exam - pt is to notify clinic with any changes or concerns. 09/10/2017 Appointment: Anyi Velázquez WPtel: [facility] [place] (15 min) Moderate 09/10/2017 Patient Education: Patient Medication Summary Completed 09/10/2017 Referral: Arvind Briseno [address] [facility] Referral Completed 10/27/2016 Referral: Arvind Briseno [address] [facility] Referral Initiated 10/27/2016 Visit Plan: Umbilical [...] control. 10/13/2016 Appointment: Anyi Velázquez WPtel: [phone] [facility] [place] (15 min) Moderate 10/13/2016 Patient Education: Patient Medication Summary Completed 10/13/2016 Care Plan: Referral Order SNOMED-CT : [id number] Pending 10/13/2016 Visit Plan: Sinusitis - Pt [...] allergy spray. 01/14/2016 Appointment: Melissa Newman WPtel: [facility] [phone] (30 min) Complex 01/14/2016 Patient Education: Patient [...] not improving. 04/04/2015 Appointment: Beba Cano [facility]el[facility] (15 min) Moderate 04/04/2015 Patient Education: [...] that appt. 03/13/2015 Appointment: Beba Cano WPtel: [facility] [place] [address] [place] ([place]) New Patient 03/13/2015 Patient Education: Patient Medication Summary Completed 03/13/2015 Patient Education: Hypertension Completed 03/13/2015 Patient Education: Patient Medication Summary Completed 10/24/2014 Referral: Katia Hunter WPtel: [address] [place] [address] they will call pt to schedule appt Initiated Referral: Katia Hunter WPtel: [facility] [address] Referral Initiated Referral: Arvind Briseno [address] [place] [address] Referral Initiated Instructions Comment . Sinusitis - [...] pap done - will refer to [facility] due to pt symptoms and difficulty for [...]
--- OUTSIDE RECORDS SUMMARY | 2020-01-06 14:52 | XMS REPORT | CCD ---
Author Author Lucia Cano Organization Beba Cano MD, [facility] Address [address] [place] [address] Phone Care Team Providers Care Mold Carrier Name Role Phone PP Unavailable CCM Unavailable Summary Purpose Interface Exchange Insurance Providers Payer name Policy type / Coverage type Covered constitution party ID Effective Begin Date Effective End Date WPS Medicare Part B Medicare Part B [id number] Unknown Unknown [employer] - Medicare Part B [id number] Unknown Unknown Family history Father Diagnosis Age [...] employed [employer] 04/04/[address]: 282528991 Never smoker 04/04/[address]: 840847178 Never drinks alcohol 04/04/2015 Has the patient ever used illegal drugs? Unknown Has never used illegal drugs 015 On Disability Unknown Yes 04/04/2015 Allergies, Adverse Reactions, Alerts Substance Reaction Codes Entered Date Inactivated Date Status * NO KNOWN DRUG JANINA RGIES Unknown 03/13/2015 No Inactive Date Active Past Medical History Illness Codes Condition Status Onset Date Resolved Date Type 2 diabetes jamal itus with hyperglycemia [...] 623.8 ICD-10: N92.1 Active 09/10/2017 Unknown Other group home (cur rent) drug therapy ICD-9: V58.69 [...] Condition Codes Effectiv e Dates Condition Status Type 2 diabetes jamal itus with hyperglycemia [...] ICD-9: 623.8 ICD-10: N92.1 09/10/2017 Active Other group home (cur rent) drug therapy ICD-9: V58.69 [...] (vit B-12) 1,000 mcg/mL injection solution RxNorm: 208079 Milliliter(s) Inj 02/07/2018 02/07/2018 Inactive metformin 1,000 mg t ablet RxNorm: 712199 TAKE 1 TABLET BY MOUT H TWICE A DAY 01/19/2018 01/13/2019 Ac tive Generic For:*GLUCOPHAGE 1000MG 01/20/20 10:20:50 AM cyanocobalamin (vit B-12) 1,000 mcg/mL injection solution RxNorm: 750725 Milliliter(s) Inj 01/13/2018 01/13/2018 Inactive cyanocobalamin (vit B-12) 1,000 mcg/mL injection solution RxNorm: 058855 Milliliter(s) Inj 12/06/2017 12/06/2017 Inactive Invokana 300 mg tablet RxNorm: 0253467 TAKE 1 TABLET BY MOUTH DAILY 11/08/2017 11/02/2018 Ac tive 11/05/2017 5:10:44 PM naproxen 500 mg tablet RxNorm: 849459 TAKE 1 TABLET BY MOUTH TWICE DAILY 11/08/2017 02/05/2018 In active Generic For:NAPROSYN 500MG 11/08/2017 9 :14:56 AM N O T I C E Last quantity doesn't match original quantity Lipitor 40 mg tablet RxNorm: 217651 TAKE 1 TABLET BY MOUTH DAILY 11/08/2017 11/02/2018 Active Generic For:LIPITOR 40MG 11/05/2017 5:1 0:24 PM levothyroxine 50 mcg tablet RxNorm: 640649 1 Tablet(s) PO daily to take with the 200mcg daily to equal 250mcg daily 11/08/2017 02/05/2018 Inactive cyanocobalamin (vit B-12) 1,000 mcg/mL injection solution RxNorm: 914673 1 Milliliter(s) Inj 11/01/2017 11/01/2017 Inactive cyanocobalamin (vit B-12) 1,000 mcg/mL injection solution RxNorm: 012452 1 Milliliter(s) Inj 09/28/2017 09/28/2017 Inactive levothyroxine 200 mc g tablet RxNorm: 713124 1 Tablet(s) PO daily to take with the 50mcg daily to equal 250mcg daily 09/14/2017 06/10/2018 Active levothyroxine 50 mcg tablet RxNorm: 173247 1 Tablet(s) PO daily to take with the 200mcg daily to equal 250mcg daily 09/14/2017 11/07/2017 Inactive naproxen 500 mg tablet RxNorm: 663975 TAKE 1 TABLET BY MOUTH TWICE DAILY 08/05/2017 11/02/2017 In active Generic For:NAPROSYN 500MG 08/05/2017 9 :04:47 AM N O T I C E Last quantity doesn't match original quantity naproxen 500 mg tablet RxNorm: 446662 TAKE 1 TABLET BY MOUTH TWICE DAILY 04/19/2017 08/04/2017 In active Generic For:NAPROSYN 500MG 04/19/2017 1 :49:28 PM Lipitor 40 mg tablet RxNorm: 674489 TAKE 1 TABLET BY MOUTH DAILY 03/22/2017 11/07/2017 Inactive Generic For:LIPITOR 40MG 03/20/2017 9:0 5:49 AM levothyroxine 25 mcg tablet RxNorm: 897560 1 Tablet(s) PO daily to take with her 200mcg to equal 225 mcg daily 03/22/2017 04/08/2017 Inactive Invokana 300 mg tablet RxNorm: 4251147 TAKE 1 TABLET BY MOUTH DAILY 12/21/2016 09/16/2017 In active 12/21/2016 9:03:03 AM levothyroxine 200 mc g tablet RxNorm: 044605 1 Tablet(s) PO daily 12/21/2016 09/13/2017 Inactive metformin 1,000 mg t ablet RxNorm: 756052 TAKE 1 TABLET BY MOUT H TWICE A DAY 11/26/2016 11/20/2017 In active Generic For:*GLUCOPHAGE 1000MG 11/27/19 1:05:15 PM naproxen 500 mg tablet RxNorm: 515825 1 Tablet(s) PO BID 10/21/2016 04/18/2017 Inactive levothyroxine 25 mcg tablet RxNorm: 589398 1 Tablet(s) PO daily to take with her 200mcg to equal 225 mcg daily 10/13/2016 01/10/2017 Inactive levothyroxine 50 mcg tablet RxNorm: 757860 1 Tablet(s) PO daily 09/21/2016 10/12/2016 Inactive Invokana 300 mg tablet RxNorm: 4477377 1 Tablet(s) PO daily 09/21/2016 12/19/2016 Inactive metformin 1,000 mg t ablet RxNorm: 499783 TAKE 1 TABLET BY MOUT H TWICE A DAY 09/21/2016 11/25/2016 In active Generic For:*GLUCOPHAGE 1000MG 09/22/19 17 8:53:30 AM levothyroxine 200 mc g tablet RxNorm: 722929 1 Tablet(s) PO daily 09/21/2016 12/19/2016 Inactive Lipitor 40 mg tablet RxNorm: 280876 TAKE 1 TABLET BY MOUTH DAILY 06/23/2016 03/19/2017 Inactive Generic For:LIPITOR 40MG 06/23/2016 9:1 2:42 AM levothyroxine 50 mcg tablet RxNorm: 070328 1 Tablet(s) PO daily TAKE 1 TABLET BY MOUTH DAILY 06/23/2016 09/20/2016 Inactive Generic For:SYNTHROID 50MCG TAB 06/23/2016 9:22:58 AM metformin 1,000 mg t ablet RxNorm: 943279 TAKE 1 TABLET BY MOUT H TWICE A DAY 06/23/2016 09/20/2016 In active Generic For:*GLUCOPHAGE 1000MG 06/23/19 17 9:12:46 AM levothyroxine 200 mc g tablet RxNorm: 028215 1 Tablet(s) PO daily 04/24/2016 08/21/2016 Inactive naproxen 500 mg tablet RxNorm: 697710 1 Tablet(s) PO BID 03/26/2016 10/20/2016 Inactive levothyroxine 50 mcg tablet RxNorm: 872162 1 Tablet(s) PO daily 03/25/2016 06/23/2016 Inactive Flonase Allergy Reli ef 50 mcg/actuation nasal spray,suspension RxNorm: 9884675 1 Simpson NASAL BID 01/14/2016 No Stop Date Active prednisone 20 mg tablet RxNorm: 702875 2 Tablet(s) PO daily 01/14/2016 01/16/2016 Inactive Zithromax Z-Michael 250 mg tablet RxNorm: 723167 Tablet(s) PO 01/14/2016 02/25/2016 Inactive levothyroxine 200 mc g tablet RxNorm: 594907 1 Tablet(s) PO daily 11/25/2015 03/23/2016 Inactive levothyroxine 50 mcg tablet RxNorm: 840809 1 Tablet(s) PO daily 11/25/2015 03/23/2016 Inactive Invokana 300 mg tablet RxNorm: 8830562 1 Tablet(s) PO daily 11/25/2015 09/20/2016 Inactive metformin 1,000 mg t ablet RxNorm: 779311 TAKE 1 TABLET BY MOUT H TWICE A DAY 08/22/2015 05/17/2016 In active Generic For:*GLUCOPHAGE 1000MG N O T I C E PRESCRIPTION PREVIOUSLY AUTHORIZED BY DOCTOR:PEDRO SIMPSON levothyroxine 200 mc g tablet RxNorm: 373094 1 Tablet(s) PO daily 08/02/2015 11/24/2015 Inactive levothyroxine 25 mcg tablet RxNorm: 643566 1 Tablet(s) PO daily 08/02/2015 11/24/2015 Inactive levothyroxine 25 mcg tablet RxNorm: 738241 1 Tablet(s) PO daily 08/02/2015 08/01/2015 Inactive Zithromax Z-Michael 250 mg tablet RxNorm: 000964 Tablet(s) PO 07/31/2015 10/27/2015 Inactive naproxen 500 mg tablet RxNorm: 862848 1 Tablet(s) PO BID 07/31/2015 02/25/2016 Inactive Lipitor 40 mg tablet RxNorm: 104288 TAKE 1 TABLET BY MOUTH DAILY 05/26/2015 05/19/2016 Inactive Generic For:LIPITOR 40MG 05/25/2015 10: 36:19 AM levothyroxine 200 mc g tablet RxNorm: 413169 TAKE 1 TABLET ONCE DA SUKUMAR WITH 50MCG TABLET TO MAKE 250MCG. 05/26/2015 07/30/2015 Inactive Generic For:SYNTHROID 200MC G TAB 05/25/2015 10:36:11 AM Invokana 100 mg tablet RxNorm: 0105259 1 Tablet(s) PO daily 03/15/2015 03/14/2015 Inactive Invokana 100 mg tablet RxNorm: 2872606 1 Tablet(s) PO daily 03/15/2015 11/24/2015 Inactive naproxen 500 mg tablet RxNorm: 323391 1 Tablet(s) PO BID 03/13/2015 07/30/2015 Inactive metformin 1,000 mg t ablet RxNorm: 632521 1 Tablet(s) PO BID 03/13/2015 08/21/2015 Inactive levothyroxine 200 mc g tablet RxNorm: 459577 TAKE 1 TABLET ONCE DA SUKUMAR WITH 50MCG TABLET TO MAKE 250MCG. 02/12/2015 05/12/2015 Inactive Generic For:SYNTHROID 200MC G TAB 02/12/2015 11:50:50 AM Lipitor 40 mg tablet RxNorm: 325590 TAKE 1 TABLET BY MOUTH DAILY 02/12/2015 05/12/2015 Inactive Generic For:LIPITOR 40MG 02/12/2015 11: 50:55 AM levothyroxine 200 mc g tablet RxNorm: 943397 1 Tablet(s) PO daily 11/19/2014 02/11/2015 Inactive levothyroxine 200 mc g tablet RxNorm: 490101 1 Tablet(s) PO daily 11/19/2014 11/18/2014 Inactive Lipitor 40 mg tablet RxNorm: 076481 1 Tablet(s) PO daily call and make appt. 11/19/2014 02/11/2015 In active Lipitor 40 mg tablet RxNorm: 126615 1 Tablet(s) PO daily call and make appt. 11/15/2014 11/18/2014 In active Lipitor 40 mg tablet RxNorm: 694349 1 Tablet(s) PO daily call and make appt. 11/15/2014 11/14/2014 In active Flintstones with Iro n oral RxNorm: oral No Start D ate Active Vitamin B-12 1,000 m cg/mL injection solution RxNorm: 365136 1 Milliliter(s) Inj m onthly No Start Date Active levothyroxine 200 mc g tablet RxNorm: 671913 1 Tablet(s) PO daily No Start Date 08/01/2015 Inactive Medication Administered Medication Codes Instruc tions Start Date Status cyanocobalamin (vit B-12) 1,000 mcg/mL injection solut ion RxNorm: 922563 Milliliter 02/07/2018 Active cyanocobalamin (vit B-12) 1,000 mcg/mL injection solut ion RxNorm: 770551 Milliliter 01/13/2018 No longer Active cyanocobalamin (vit B-12) 1,000 mcg/mL injection solut ion RxNorm: 442233 Milliliter 12/06/2017 No longer Active cyanocobalamin (vit B-12) 1,000 mcg/mL injection solut ion RxNorm: 755041 1Milliliter 11/01/2017 No longer Active cyanocobalamin (vit B-12) 1,000 mcg/mL injection solut ion RxNorm: 218744 1Milliliter 09/28/2017 No longer Active Immunizations Vaccine Codes Date Status Influenza CVX: 141 03/21 completed Assessments Condition Codes Effectiv e Dates Type 2 diabetes mellitus with hyperglycemia ICD-10: E11.65 ICD-9: 250.00 02/07/2018 Other vitamin B12 deficiency anemias ICD-10: D51.8 ICD-9: 281.1 01/13/2018 Encounter for screening mammogram for ma lignant neoplasm of breast ICD-10: Z12.31 ICD-9: V76.12 01/12/2018 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) ICD- 10: D50.0 ICD-9: 280.0 09/27/2017 Other group home (current) drug therapy ICD-10: [...] Hct Ord65 HCT 30.4 % 09/24/2017 B12 Wft325 B12 124.00 pg/ml 09/15/2017 Cbc With Differential [...] 20.0 pg 09/15/2017 Cbc With Differential Ord2 Orange% 7.7 % 09/15/2017 Cbc With Differential Ord2 [...] 1.94 K/ul 09/15/2017 Cbc With Differential Ord2 Orange ABS# 0.8 K/ul 09/15/2017 Cbc With Differential Ord2 Eos ABS# 0.5 K/ul 09/15/2017 Cbc With Differential Ord2 Baso ABS# 0.1 K/ul 09/15/2017 Tibc Ord40 Iron 21 ug/dl 09/15/2017 Tibc Ord40 UIBC 432 ug/dL 09/15/2017 Tibc Ord40 TIBC 453 ug/dL 09/15/2017 Tibc Ord40 Fe-%Sat 4.6 % 09/15/2017 Folate Ord36 Folate 15.31 ng/mL 09/15/2017 Ferritin Ord22 FERRITIN 4.3 ng/mL 09/15/2017 Free T4 Mio727 FREE T4 0.88 ng/dL 09/10/2017 %Hba1C Ads505 % HbA1c 48650-8 6.7 % 09/10/2017 %Hba1C Bwx357 Gluc Ave 146 mg/dL 09/10/2017 Cbc With [...] 71.8 fl 09/10/2017 Cbc With Differential Ord2 Orange% 8.0 % 09/10/2017 Cbc With Differential Ord2 [...] 2.10 K/ul 09/10/2017 Cbc With Differential Ord2 Orange ABS# 0.7 K/ul 09/10/2017 Cbc With Differential Ord2 Eos ABS# 0.5 K/ul 09/10/2017 Cbc With Differential Ord2 Baso ABS# 0.0 K/ul 09/10/2017 Comp Metabolic Rtc229 NA 139 mEq/L 09/10/2017 Comp Metabolic Rrj758 K 4.6 mEq/L 09/10/2017 Comp Metabolic Rdx192 CL 103 mEq/L 09/10/2017 Comp Metabolic Ptv853 CO2 28.0 mEq/L 09/10/2017 Comp Metabolic Gis043 AN ION GAP 13 09/10/2017 Comp Metabolic Xge157 GL UCOSE 91 mg/dL 09/10/2017 Comp Metabolic Fuk229 Cr eat 0.6 mg/dL 09/10/2017 Comp Metabolic Wpt307 eG FR 117 ml/min/1.73m2 08/20 Comp Metabolic Bkn148 BUN 22 mg/dL 09/10/2017 Comp Metabolic Nzf073 B/ C Ratio 37.3 Ratio 09/10/2017 Comp Metabolic Enb799 CA LCIUM 9.6 mg/dL 09/10/2017 Comp Metabolic Bif264 AL K PHOS 100 U/L 09/10/2017 Comp Metabolic Nev733 T(SGOT) 12 U/L 09/10/2017 Comp Metabolic Vso990 AL T(SGPT) 13 U/L 09/10/2017 Comp Metabolic Oha630 BI LI T 0.2 mg/dL 09/10/2017 Comp Metabolic Irg241 AL BUMIN 3.9 g/dL 09/10/2017 Comp Metabolic Wik460 TP RO 7.0 g/dL 09/10/2017 Comp Metabolic Ijx934 GL OB 3.1 g/dL 09/10/2017 Comp Metabolic Mle516 A/ G Ratio 1.3 Ratio 09/10/2017 Comp Metabolic Jxr887 Os mo 280 mOsmo 09/10/2017 Tsh Ord6 TSH (3rd IS) 6.83 uIU/mL 09/10/2017 Free T4 Azs054 FREE T4 1.53 ng/dL 04/07/2017 Tsh Ord6 hTSH II 0.55 uIU/mL 04/07/2017 Tsh Ord6 hTSH II 0.55 uIU/mL 12/30/2016 Free T4 Vnq272 FREE T4 1.15 ng/dL 12/30/2016 %Hba1C Qjn519 % HbA1c 38939-4 6.0 % 10/01/2016 %Hba1C Iqn397 Gluc Ave 126 mg/dL 10/01/2016 Tsh Ord6 hTSH II 0.19 uIU/mL 10/01/2016 Comp Metabolic Tnc171 NA 139 mEq/L 10/01/2016 Comp Metabolic Qor203 K 4.6 mEq/L 10/01/2016 Comp Metabolic Kuz508 CL 102 mEq/L 10/01/2016 Comp Metabolic Nes561 CO2 28.0 mEq/L 10/01/2016 Comp Metabolic Oxl235 AN ION GAP 14 10/01/2016 Comp Metabolic Bdx835 GL UCOSE 93 mg/dL 10/01/2016 Comp Metabolic Hsz271 Cr eat 0.6 mg/dL 10/01/2016 Comp Metabolic Wje643 eG FR 109 ml/min/1.73m2 09/19 Comp Metabolic Uxx255 BUN 20 mg/dL 10/01/2016 Comp Metabolic Xvp804 B/ C Ratio 31.7 Ratio 10/01/2016 Comp Metabolic God034 CA LCIUM 9.8 mg/dL 10/01/2016 Comp Metabolic Ton564 AL K PHOS 114 U/L 10/01/2016 Comp Metabolic Pwc363 T(SGOT) 11 U/L 10/01/2016 Comp Metabolic Nqe888 AL T(SGPT) 12 U/L 10/01/2016 Comp Metabolic Tdi044 BI LI T 0.4 mg/dL 10/01/2016 Comp Metabolic Mdz383 AL BUMIN 4.3 g/dL 10/01/2016 Comp Metabolic Svj995 TP RO 7.2 g/dL 10/01/2016 Comp Metabolic Iwp068 GL OB 2.9 g/dL 10/01/2016 Comp Metabolic Epr297 A/ G Ratio 1.5 Ratio 10/01/2016 Comp Metabolic Yiv203 Os mo 280 mOsmo 10/01/2016 Free T4 Mxf548 FREE T4 1.37 ng/dL 10/01/2016 Lipid Ord30 [...] 27.9 pg 10/01/2016 Cbc With Differential Ord2 Orange% 8.5 % 10/01/2016 Cbc With Differential Ord2 [...] 1.69 K/ul 10/01/2016 Cbc With Differential Ord2 Orange ABS# 0.7 K/ul 10/01/2016 Cbc With Differential [...] 22.7 pg 04/06/2016 Cbc With Differential Ord2 Orange% 8.2 % 04/06/2016 Cbc With Differential Ord2 [...] 1.48 K/ul 04/06/2016 Cbc With Differential Ord2 Orange ABS# 0.5 K/ul 04/06/2016 Cbc With Differential Ord2 Eos ABS# 0.4 K/ul 04/06/2016 Cbc With Differential Ord2 Baso ABS# 0.0 K/ul 04/06/2016 Ferritin Ord22 FERRITIN 5.8 ng/mL 04/06/2016 Free T4 Ivo766 FREE T4 1.16 ng/dL 03/16/2016 %Hba1C Sfw269 % HbA1c 17356-6 7.0 % 03/16/2016 %Hba1C Xbx715 Gluc Ave 154 mg/dL 03/16/2016 Cbc With [...] 23.2 pg 03/16/2016 Cbc With Differential Ord2 Orange% 4.8 % 03/16/2016 Cbc With Differential Ord2 [...] 1.75 K/ul 03/16/2016 Cbc With Differential Ord2 Orange ABS# 0.6 K/ul 03/16/2016 Cbc With Differential Ord2 Eos ABS# 0.4 K/ul 03/16/2016 Cbc With Differential Ord2 Baso ABS# 0.0 K/ul 03/16/2016 Tsh Ord6 hTSH II 1.39 uIU/mL 03/16/2016 Tsh Ord6 hTSH II 10.28 uIU/mL 11/14/2015 Free T4 Ude417 FREE T4 0.79 ng/dL 11/14/2015 Lipid Ord30 [...] 24.4 pg 11/14/2015 Cbc With Differential Ord2 Orange% 6.6 % 11/14/2015 Cbc With Differential Ord2 [...] 1.72 K/ul 11/14/2015 Cbc With Differential Ord2 Orange ABS# 0.8 K/ul 11/14/2015 Cbc With Differential Ord2 Eos ABS# 0.4 K/ul 11/14/2015 Cbc With Differential Ord2 Baso ABS# 0.0 K/ul 11/14/2015 Comp Metabolic Ufw262 NA 136 mEq/L 11/14/2015 Comp Metabolic Qgx271 K 4.4 mEq/L 11/14/2015 Comp Metabolic Pro348 CL 101 mEq/L 11/14/2015 Comp Metabolic Dam094 CO2 27.0 mEq/L 11/14/2015 Comp Metabolic Twc383 AN ION GAP 12 11/14/2015 Comp Metabolic Keo136 GL UCOSE 107 mg/dL 11/14/2015 Comp Metabolic Rcd762 Cr eat 0.6 mg/dL 11/14/2015 Comp Metabolic Clr481 eG FR 125 ml/min/1.73m2 10/20 Comp Metabolic Rue818 BUN 14 mg/dL 11/14/2015 Comp Metabolic Ufu555 B/ C Ratio 25.0 Ratio 11/14/2015 Comp Metabolic Lva038 CA LCIUM 9.6 mg/dL 11/14/2015 Comp Metabolic Iyn539 AL K PHOS 104 U/L 11/14/2015 Comp Metabolic Dgv525 T(SGOT) 16 U/L 11/14/2015 Comp Metabolic Lal442 AL T(SGPT) 14 U/L 11/14/2015 Comp Metabolic Wos070 BI LI T 0.3 mg/dL 11/14/2015 Comp Metabolic Mkn353 AL BUMIN 4.0 g/dL 11/14/2015 Comp Metabolic Emc294 TP RO 7.2 g/dL 11/14/2015 Comp Metabolic Afg292 GL OB 3.2 g/dL 11/14/2015 Comp Metabolic Zpd216 A/ G Ratio 1.3 Ratio 11/14/2015 Comp Metabolic Epf626 Os mo 273 mOsmo 11/14/2015 %Hba1C Zyq899 % HbA1c 12857-5 7.0 % 11/14/2015 %Hba1C Rkl198 Gluc Ave 154 mg/dL 11/14/2015 Free T4 Kyz383 FREE T4 0.49 ng/dL 08/02/2015 Tsh Ord6 hTSH II 44.41 uIU/mL 07/31/2015 %Hba1C Gow983 % HbA1c 97942-0 6.7 % 07/31/2015 %Hba1C Jjy912 Gluc Ave 146 mg/dL 07/31/2015 Cbc With [...] Differential Ord2 RDW 14.9 % 03/13/2015 %Hba1C Hoc881 % HbA1c 67568-4 6.8 % 03/13/2015 %Hba1C Wse569 Gluc Ave 148 mg/dL 03/13/2015 Tsh Ord6 hTSH II 0.95 uIU/mL 03/13/2015 Lipid Ord30 CHOL 146 mg/dL 03/13/2015 Lipid Ord30 HDL 40.0 mg/dl 03/13/2015 Lipid Ord30 TRIG 137 mg/dL 03/13/2015 Lipid Ord30 LDL 79 mg/dL 03/13/2015 Lipid Ord30 C/HDL 3.7 Ratio 03/13/2015 Comp Metabolic Jyx144 NA 135 mEq/L 03/13/2015 Comp Metabolic Enl514 K 4.5 mEq/L 03/13/2015 Comp Metabolic Qir174 CL 99 mEq/L 03/13/2015 Comp Metabolic Noc947 CO2 29.0 mEq/L 03/13/2015 Comp Metabolic Kjf420 AN ION GAP 12 03/13/2015 Comp Metabolic Izq375 GL UCOSE 98 mg/dL 03/13/2015 Comp Metabolic Jcm138 Cr eat 0.7 mg/dL 03/13/2015 Comp Metabolic Jtz704 eG FR 100 ml/min/1.73m2 02/20 Comp Metabolic Qns253 BUN 13 mg/dL 03/13/2015 Comp Metabolic Czn893 B/ C Ratio 19.1 Ratio 03/13/2015 Comp Metabolic Vbt780 CA LCIUM 9.8 mg/dL 03/13/2015 Comp Metabolic Sdv914 AL K PHOS 91 U/L 03/13/2015 Comp Metabolic Qam742 T(SGOT) 10 U/L 03/13/2015 Comp Metabolic Nlb275 AL T(SGPT) 10 U/L 03/13/2015 Comp Metabolic Ana788 BI LI T 0.4 mg/dL 03/13/2015 Comp Metabolic Yad655 AL BUMIN 4.1 g/dL 03/13/2015 Comp Metabolic Nns909 TP RO 6.9 g/dL 03/13/2015 Comp Metabolic Rhx587 GL OB 2.8 g/dL 03/13/2015 Comp Metabolic Ike382 A/ G Ratio 1.5 Ratio 03/13/2015 Comp Metabolic Iec909 Os mo 270 mOsmo 03/13/2015 Free T4 Lpf852 FREE T4 1.25 ng/dL 03/13/2015 Review of [...] Procedure Codes Date THER/PROPH/DIAG INJ SC/IM CPT-4: 98184 02/07/2018 VITAMIN B12 INJECTION CPT-4: J3420 02/07/2018 THER/PROPH/DIAG INJ SC/IM CPT-4: 86949 01/13/2018 VITAMIN B12 INJECTION CPT-4: J3420 01/13/2018 VITAMIN B12 INJECTION CPT-4: J3420 12/06/2017 THER/PROPH/DIAG INJ SC/IM CPT-4: 89832 12/06/2017 THER/PROPH/DIAG INJ SC/IM CPT-4: 79699 11/01/2017 VITAMIN B12 INJECTION CPT-4: J3420 11/01/2017 THER/PROPH/DIAG INJ SC/IM CPT-4: 47517 09/28/2017 VITAMIN B12 INJECTION CPT-4: J3420 09/28/2017 Vital Signs Date Vital 11/01/2017 Heigh t: 5'3" 09/10/2017 Blood Pressure 1: 136/70 Code: 8480-6 BMI: 44.6 Code: 93885-3 Heart Rate 1: 91 bpm Height: 5'3" SpO2: 96% Weight: 252 lbs 10/13/2016 Blood Pressure 1: 134/82 Code: 8480-6 BMI: 43.6 Code: 35078-0 Heart Rate 1: 97 bpm Height: 5'3" SpO2: 97% Weight: 246 lbs 01/14/2016 Blood Pressure 1: 132/78 Code: 8480-6 BMI: 45.7 Code: 99800-1 Heart Rate 1: 90 bpm Height: 5'3" SpO2: 98% Weight: 258 lbs 07/31/2015 Blood Pressure 1: 142/80 Code: 8480-6 BMI: 45.7 Code: 55164-6 Heart Rate 1: 78 bpm Height: 5'3" SpO2: 96% Weight: 258 lbs 04/04/2015 Blood Pressure 1: 130/82 Code: 8480-6 BMI: 44.9 Code: 51394-8 Heart Rate 1: 90 bpm Height: 5'3" SpO2: 96% Weight: 253 lbs 5 oz 03/13/2015 Blood Pressure 1: 140/86 Code: 8480-6 BMI: 45.2 Code: 37231-2 Heart Rate 1: 87 bpm Height: 5'3" SpO2: 93% Weight: 255 lbs Functional Status No Functional Status data History of Present Illness Symptom Name Status Resu lt Effective Date Notes hypothyroid Location at the level of the thyroid 09/10/2017 None hypothyroid Quality vp home health [facility] 09/10/2017 None hypothyroid Onset and Resolution [...] of the thyroid 10/13/2016 None hypothyroid Quality vp home health [facility] 10/13/2016 None hypothyroid Onset and Resolution [...] of the thyroid 07/31/2015 None hypothyroid Quality vp home health [facility] 07/31/2015 None hypothyroid Onset and Resolution [...] of the thyroid 03/13/2015 None hypothyroid Quality vp home health [facility] 03/13/2015 None hypothyroid Onset and Resolution [...] Encounters Encounter Performer Loca tion Codes Date 84819 EST. PATIENT, LEVEL IV Diagnosis: Excessive and frequent menstruation with irregular cycle[ICD10: N92.1] Diagnosis: Type 2 diabetes mellitus with hyperglycemia[ICD10: E11.65] Diagnosis: Other specified hypothyroidism[ICD10: E03.8] Diagnosis: Other group home (current) drug therapy[ICD10: Z79.899] Anyi Cano MD, [facility] CPT-4: 79884 09/10/2017 72718 EST. PATIENT, LEVEL IV Diagnosis: Type 2 diabetes mellitus with hyperglycemia[ICD10: E11.65] Diagnosis: Other specified hypothyroidism[ICD10: E03.8] Diagnosis: Other terminal superintendent (current) drug therapy[ICD10: Z79.899] Diagnosis: Umbilical hernia without obstruction or gangrene[ICD10: K42.9] Anyi Cano MD, [facility] CPT-4: 98928 10/13/2016 27875 EST. PATIENT, LEVEL IV Diagnosis: Other acute sinusitis[ICD10: J01.80] Diagnosis: Other allergic rhinitis[ICD10: J30.89] Diagnosis: Wheezing[ICD10: R06.2] Anyi Cano MD, [facility] CPT-4: 70278 01/14/2016 70571 EST. PATIENT, LEVEL IV Diagnosis: Other terminal superintendent (current) drug therapy[ICD10: Z79.899] Diagnosis: Type 2 diabetes mellitus with hyperglycemia[ICD10: E11.65] Diagnosis: Other specified hypothyroidism[ICD10: E03.8] Diagnosis: Mixed hyperlipidemia[ICD10: E78.2] Anyi Cano MD, [facility] CPT-4: 93431 07/31/2015 ([id number]) 22895 EST. P ATIENT, LEVEL III Diagnosis: Achilles tendinitis, left leg[ICD10: M76.62] Beba Cano MD, [facility] CPT-4: 94827 04/04/2015 ([id number]) OFFICE VISI T, NEW - LEVEL 4 Diagnosis: HYPERLIPIDEMIA[ICD9: 272.4] Diagnosis: DIABETES TYPE II[ICD9: 250.00] Diagnosis: HYPOTHYROIDISM[ICD9: 244.9] Diagnosis: ACHILLES TENDINITIS[ICD9: 726.71] [facility] CPT-4: 62003 03/13/2015 Plan of Care Planned Activity Notes C odes Status Date Patient Education: Patient Medication Summary Completed 02/07/2018 Appointment: Injection 01/13/2018 Patient Education: Patient Medication Summary Completed 01/13/2018 Patient Education: Patient Medication Summary Completed 01/12/2018 Care Plan: [facility] 00739-6 Pending 01/12/2018 Appointment: Injection 12/06/2017 Patient Education: [...] 09/14/2017 Care Plan: Referral Order SNOMED-CT : [id number] Pending 09/13/2017 Visit Plan: Diabetes Mellitus - [...] or pap done - will refer to CMM INSPECTOR due to pt symptoms and difficulty for exam - pt is to notify clinic with any changes or concerns. 09/10/2017 Appointment: Anyi Velázquez WPtel: [phone] (15 min) Moderate 09/10/2017 Patient Education: Patient Medication Summary Completed 09/10/2017 Referral: Arvind Briseno [address] [facility] Referral Completed 10/27/2016 Referral: Arvind Briseno [address] [facility] Referral Initiated 10/27/2016 Visit Plan: [...] of control. 10/13/2016 Appointment: Anyi Velázquez WPtel: [facility] (15 min) Moderate 10/13/2016 Patient Education: Patient Medication Summary Completed 10/13/2016 Care Plan: Referral Order SNOMED-CT : [id number] Pending 10/13/2016 Visit Plan: Sinusitis - Pt [...] allergy spray. 01/14/2016 Appointment: Melissa Newman WPtel: [phone] (30 min) Complex 01/14/2016 Patient [...] not improving. 04/04/2015 Appointment: Beba Cano WPtel: [address] [place], [place] [id number] (15 min) Moderate 04/04/2015 Patient Education: Patient [...] that appt. 03/13/2015 Appointment: Beba Cano WPtel: [address] [place] [address] [place] ([place]) New Patient 03/13/2015 Patient Education: Patient Medication Summary Completed 03/13/2015 Patient Education: Hypertension Completed 03/13/2015 Patient Education: Patient Medication Summary Completed 10/24/2014 Referral: Katia Hunter WPtel: [address] [place] [address] they will call pt to schedule appt Initiated Referral: Katia Hunter WPtel: [facility] [address] Referral Initiated Referral: Arvind Briseno [address] [place] [address] Referral Initiated Instructions Comment . Sinusitis - [...] or pap done - will refer to [facility] due to pt symptoms and difficulty for [...]
--- OUTSIDE RECORDS SUMMARY | 2020-01-06 14:52 | XMS REPORT | Continuity of Care Document ---
Demographics Preferred Language Unknown Marital Status Unknown Alevism Affiliation Unknown Race Unknown Ethnic Group Unknown Author Organization Unknown Address Unknown Phone Unavailable Allergies Active Description Code Type Severity Reaction Onset Reported/Identified Relationship to Patient Clinical Status Yes No Known Drug Allergies [id number] Drug Allergy Unknown N/A 10/29/2016 Medications There is no data. Problems Date Dx Coded Attending Type Code Diagnosis Diagnosed By 10/25/2014 PEDRO SIMPSON MD Ot V76.12 11/19/2014 PEDRO SIMPSON MD Ot V76.12 11/30/2014 PEDRO SIMPSON MD Ot V76.12 01/14/2016 PEDRO SIMPSON MD Ot V76.12 OTH SCREEN MAMMO-MALIGN NEOPLASM OF KENNY 01/14/2016 PEDRO SIMPSON MD Ot V76.12 OTH SCREEN MAMMO-MALIGN NEOPLASM OF [place]EN[place] 01/14/2016 SHAILESH CANO MD Ot Z12.31 ENCNTR SCREEN MAMMOGRAM FOR MALIGNANT NE 01/15/2016 SHAILESH CANO MD Ot Z12.31 ENCNTR SCREEN MAMMOGRAM FOR MALIGNANT NE 02/04/2016 SHAILESH CANO MD Ot Z12.31 ENCNTR SCREEN MAMMOGRAM FOR MALIGNANT NE 02/07/2016 SHAILESH CANO MD Ot Z12.31 ENCNTR SCREEN MAMMOGRAM FOR MALIGNANT NE 04/22/2016 PEDRO SIMPSON MD Ot V76.12 OTH SCREEN MAMMO-MALIGN NEOPLASM OF [place]EN[place] 04/22/2016 PEDRO SIMPSON MD Ot V76.12 OTH SCREEN MAMMO-MALIGN NEOPLASM OF [place] 04/22/2016 SHAILESH CANO MD Ot Z12.31 ENCNTR SCREEN MAMMOGRAM FOR MALIGNANT NE 04/23/2016 SHAILESH CANO MD Ot D50.9 IRON DEFICIENCY ANEMIA, UNSPECIFIED 04/24/2016 SHAILESH CANO MD Ot D50.9 IRON DEFICIENCY ANEMIA, UNSPECIFIED 04/27/2016 SHAILESH CANO MD Ot D50.9 IRON DEFICIENCY ANEMIA, UNSPECIFIED 04/27/2016 KD MD, SHAILESH A Ot D50.9 IRON DEFICIENCY ANEMIA, UNSPECIFIED 04/29/2016 KD CASTILLO, SHAILESH A Ot D50.9 IRON DEFICIENCY ANEMIA, UNSPECIFIED 04/29/2016 KD CASTILLO, SHAILESH A Ot D50.9 IRON DEFICIENCY ANEMIA, UNSPECIFIED 05/01/2016 KD CASTILLO, SHAILESH A Ot D50.9 IRON DEFICIENCY ANEMIA, UNSPECIFIED 05/04/2016 SHAILESH CANO MD A Ot D50.9 IRON DEFICIENCY ANEMIA, UNSPECIFIED 05/04/2016 KD CASTILLO, SHAILESH A Ot D50.9 IRON DEFICIENCY ANEMIA, UNSPECIFIED 07/21/2016 SHAILESH CANO MD A Ot D50.9 IRON DEFICIENCY ANEMIA, UNSPECIFIED 10/29/2016 SHAILESH CANO MD A Ot D50.9 IRON DEFICIENCY ANEMIA, UNSPECIFIED 10/29/2016 IZABELA BENSON MD, Ot K42.9 UMBILICAL HERNIA WITHOUT OBSTRUCTION OR 10/29/2016 IZABELA BENSON MD, Ot Z01.81 8 ENCOUNTER FOR OTHER PREPROCEDURAL EXAMIN 10/29/2016 IZABELA BENSON MD, Ot Z11.2 ENCOUNTER FOR SCREENING FOR OTHER BACTER 11/05/2016 IZABELA BENSON MD, Ot E03.9 HYPOTHYROIDISM, UNSPECIFIED 11/05/2016 IZABELA BENSON MD, Ot E11.9 TYPE 2 DIABETES MELLITUS WITHOUT COMPLIC 11/05/2016 IZABELA BENSON MD, Ot E78.5 HYPERLIPIDEMIA, UNSPECIFIED 11/05/2016 IZABELA BENSON MD, Ot G80.9 CEREBRAL PALSY, UNSPECIFIED 11/05/2016 IZABELA BENSON MD, Ot K42.0 UMBILICAL HERNIA WITH OBSTRUCTION, WITHO 11/05/2016 IZABELA BENSON MD, Ot Z79.84 CUSTODIAL (CURRENT) USE OF ORAL HYPOGLYC 11/05/2016 IZABELA BENSON MD, Ot Z79.89 9 OTHER CUSTODIAL (CURRENT) DRUG THERAPY 11/09/2016 IZABELA BENSON MD, Ot E03.9 HYPOTHYROIDISM, UNSPECIFIED 11/09/2016 IZABELA BENSON MD, Ot E11.9 TYPE 2 DIABETES MELLITUS WITHOUT COMPLIC 11/09/2016 IZABELA BENSON MD, Ot E78.5 HYPERLIPIDEMIA, UNSPECIFIED 11/09/2016 IZABELA BENSON MD, Ot G80.9 CEREBRAL PALSY, UNSPECIFIED 11/09/2016 IZABELA BENSON MD, Ot K42.0 UMBILICAL HERNIA WITH OBSTRUCTION, WITHO 11/09/2016 IZABELA BENSON MD, Ot Z79.84 LEAD CARGOMAN (CURRENT) USE OF ORAL HYPOGLYC 11/09/2016 IZABELA BENSON MD, Ot Z79.89 9 OTHER LEAD CARGOMAN (CURRENT) DRUG THERAPY 01/18/2017 ELISABETH LY SHOER Ot Z12.31 ENCNTR SCREEN MAMMOGRAM FOR MALIGNANT NE 01/18/2017 PEDRO SIMPSON MD Ot V76.12 OTH SCREEN MAMMO-MALIGN NEOPLASM OF [place] 01/18/2017 PEDRO SIMPSON MD Ot V76.12 OTH SCREEN MAMMO-MALIGN NEOPLASM OF [place] 01/18/2017 SHAILESH CANO MD Ot Z12.31 ENCNTR SCREEN MAMMOGRAM FOR MALIGNANT NE 01/18/2017 SHAILESH CANO MD Ot D50.9 IRON DEFICIENCY ANEMIA, UNSPECIFIED 01/18/2017 ELISABETH LY SHOER Ot Z12.31 ENCNTR SCREEN MAMMOGRAM FOR MALIGNANT NE 01/19/2017 ELISABETH LY SHOER Ot Z12.31 ENCNTR SCREEN MAMMOGRAM FOR MALIGNANT NE 01/19/2017 ELISABETH LY SHOER Ot Z12.31 ENCNTR SCREEN MAMMOGRAM FOR MALIGNANT NE 02/15/2017 ELISABETH LY SHOER Ot Z12.31 ENCNTR SCREEN MAMMOGRAM FOR MALIGNANT NE 02/15/2017 ELISABETH LY SHOER Ot Z12.31 ENCNTR SCREEN MAMMOGRAM FOR MALIGNANT NE 09/29/2017 PEDRO SIMPSON MD Ot V76.12 OTH SCREEN MAMMO-MALIGN NEOPLASM OF [place] 09/29/2017 PEDRO SIMPSON MD Ot V76.12 OTH SCREEN MAMMO-MALIGN NEOPLASM OF [place] 09/29/2017 SHAILESH CANO MD Ot Z12.31 ENCNTR SCREEN MAMMOGRAM FOR MALIGNANT NE 09/29/2017 SHAILESH CANO MD Ot D50.9 IRON DEFICIENCY ANEMIA, UNSPECIFIED 09/29/2017 ELISABETH LY APRN Ot Z12.31 ENCNTR SCREEN MAMMOGRAM FOR MALIGNANT NE 09/29/2017 SHAILESH CANO MD Ot D50.9 IRON DEFICIENCY ANEMIA, UNSPECIFIED 10/01/2017 KD MD, SHAILESH A Ot D50.9 IRON DEFICIENCY ANEMIA, UNSPECIFIED 2017 KD CASTILLO, SHAILESH Landin Ot D50.9 IRON DEFICIENCY ANEMIA, UNSPECIFIED 12/21/2017 COSTA DO, KALIA C Ot N95.0 POSTMENOPAUSAL BLEEDING 01/07/2018 TATIANA CASTILLO, PEDRO Soares Ot V76.12 OTH SCREEN MAMMO-MALIGN NEOPLASM OF [place] 01/07/2018 TATIANA CASTILLO, PEDRO Soares Ot V76.12 OTH SCREEN MAMMO-MALIGN NEOPLASM OF [place] 01/07/2018 KD CASTILLO, SHAILESH Landin Ot Z12.31 ENCNTR SCREEN MAMMOGRAM FOR MALIGNANT NE 01/07/2018 KD CASTILLO, SHAILESH Landin Ot D50.9 IRON DEFICIENCY ANEMIA, UNSPECIFIED 01/07/2018 ELISABETH LY APRN Ot Z12.31 ENCNTR SCREEN MAMMOGRAM FOR MALIGNANT NE 01/07/2018 COSTA DO, KALIA C Ot N95.0 POSTMENOPAUSAL BLEEDING 01/07/2018 COSTA DO, KALIA C Ot D64.9 ANEMIA, UNSPECIFIED 01/07/2018 COSTA DO, KALIA C Ot 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 01/07/2018 COSTA DO, KALIA C Ot N95.0 POSTMENOPAUSAL BLEEDING 01/07/2018 COSTA DO, KALIA C Ot Z01.8 12 ENCOUNTER FOR PREPROCEDURAL LABORATORY E 01/07/2018 COSTA DO, KALIA C Ot Z11.2 ENCOUNTER FOR SCREENING FOR OTHER BACTER 01/10/2018 COSTA DO, KALIA C Ot D64.9 ANEMIA, UNSPECIFIED 01/10/2018 COSTA DO, KALIA C Ot 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 01/10/2018 COSTA DO, KALIA C Ot N95.0 POSTMENOPAUSAL BLEEDING 01/10/2018 COSTA DO, KALIA C Ot Z01.8 12 ENCOUNTER FOR PREPROCEDURAL LABORATORY E 01/10/2018 COSTA DO, KALIA C Ot Z11.2 ENCOUNTER FOR SCREENING FOR OTHER BACTER 01/11/2018 COSTA DO, KALIA C Ot E11.9 TYPE 2 DIABETES MELLITUS WITHOUT COMPLIC 01/11/2018 COSTA DO, KALIA C Ot G80.9 CEREBRAL PALSY, UNSPECIFIED 01/11/2018 COSTA DO, KALIA C Ot N84.0 POLYP OF CORPUS UTERI 01/11/2018 COSTA DO, KALIA C Ot N95.0 POSTMENOPAUSAL BLEEDING 01/11/2018 COSTA DO, KALIA C Ot Z79.8 4 LEAD CARGOMAN (CURRENT) USE OF ORAL HYPOGLYC 01/11/2018 COSTA DO, KALIA C Ot N95.0 POSTMENOPAUSAL BLEEDING 01/12/2018 COSTA DO, KALIA C Ot E11.9 TYPE 2 DIABETES MELLITUS WITHOUT COMPLIC 01/12/2018 COSTA DO, KALIA C Ot G80.9 CEREBRAL PALSY, UNSPECIFIED 01/12/2018 COSTA DO, KALIA C Ot N84.0 POLYP OF CORPUS UTERI 01/12/2018 COSTA DO, KALIA C Ot N95.0 POSTMENOPAUSAL BLEEDING 01/12/2018 COSTA DO, KALIA C Ot Z79.8 4 CUSTODIAL (CURRENT) USE OF ORAL HYPOGLYC 01/14/2018 COSTA DO, KALIA C Ot N95.0 POSTMENOPAUSAL BLEEDING 04/06/2018 ELISABETH LY APRN Ot Z12.31 ENCNTR SCREEN MAMMOGRAM FOR MALIGNANT NE 04/10/2018 ELISABETH LY SHOER Ot Z12.31 ENCNTR SCREEN MAMMOGRAM FOR MALIGNANT NE 04/29/2018 ELISABETH LY SHOER Ot Z12.31 ENCNTR SCREEN MAMMOGRAM FOR MALIGNANT NE 05/06/2018 ELISABETH LY SHOER Ot Z12.31 ENCNTR SCREEN MAMMOGRAM FOR MALIGNANT NE 08/18/2019 W D51.8 Othe r vitamin B12 deficiency anemias Kd Shailesh 08/18/2019 W D51.8 Othe r vitamin B12 deficiency anemias Shailesh Cano 08/22/2019 ELISABETH LY APRN Ot Z12.31 ENCNTR SCREEN MAMMOGRAM FOR MALIGNANT NE 08/22/2019 PEDRO SIMPSON MD Ot V76.12 OTH SCREEN MAMMO-MALIGN NEOPLASM OF KENNY 08/22/2019 SHAILESH CANO MD Ot Z12.31 ENCNTR SCREEN MAMMOGRAM FOR MALIGNANT NE 08/22/2019 SHAILESH CANO MD Ot D50.9 IRON DEFICIENCY ANEMIA, UNSPECIFIED 08/22/2019 ELISABETH LY APRN Ot Z12.31 ENCNTR SCREEN MAMMOGRAM FOR MALIGNANT NE 08/22/2019 COSTA DO, KALIA C Ot N95.0 POSTMENOPAUSAL BLEEDING 08/22/2019 ELISABETH LY APRN Ot Z12.31 ENCNTR SCREEN MAMMOGRAM FOR MALIGNANT NE 08/22/2019 ELISABETH LY APRN Ot Z12.31 ENCNTR SCREEN MAMMOGRAM FOR MALIGNANT NE 08/25/2019 W Z12.31 Enc ounter for screening mammogram for malignant neoplasm of breast Kd Shailesh 09/14/2019 ELISABETH LY APRN Ot Z12.31 ENCNTR SCREEN MAMMOGRAM FOR MALIGNANT NE 10/20/2019 W D51.8 Othe r vitamin B12 deficiency anemias Kd [place] 01/01/2020 W D51.8 Othe r vitamin B12 deficiency anemias Kd [place] 01/02/2020 W E03.8 Othe r specified hypothyroidism [facility] 01/02/2020 W E11.65 Typ e 2 diabetes mellitus with hyperglycemia [facility] 01/02/2020 W E78.2 Mixe d hyperlipidemia [facility] 01/05/2020 W E03.8 Othe r specified hypothyroidism [facility] 01/05/2020 W E11.65 Typ e 2 diabetes mellitus with hyperglycemia [facility] 01/05/2020 W E78.2 Mixe d hyperlipidemia [facility] Procedures There is no data. Results Test Result Range Methicillin resistant Staphylococcus aur eus (MRSA) screening culture - 10/29/16 15:30 Methicillin resistant Staphylococcus aureus (MRSA) scr eening culture NEG NRG Urine beta human chorionic gonadotropin (hCG) measurement - 11/05/16 07:00 Urine beta human chorionic gonadotropin (hCG) measurem ent NEGATIVE NEGATIVE Capillary blood glucose measurement by g lucometer (mass/volume) - 11/05/16 07:14 Capillary blood glucose measurement by glucometer (mas s/volume) 93 mg/dL 70-110 Methicillin resistant Staphylococcus aur eus (MRSA) screening culture - 01/07/18 12:15 Methicillin resistant Staphylococcus aureus (MRSA) scr eening culture NEG NRG Complete blood count (CBC) with automate d white blood cell (WBC) differential - 01/07/18 12:20 Blood leukocytes automated count (number/volume) 6.7 10*3/uL 4.3-11.0 Blood erythrocytes automated count (number/volume) 4.87 10*6/uL 4.35-5.85 Venous blood hemoglobin measurement (mass/volume) 13.1 g/dL 11.5-16.0 Blood hematocrit (volume fraction) 40 % 35-52 Automated erythrocyte mean corpuscular volume 83 [ foz_us] 80-99 Automated erythrocyte mean corpuscular h emoglobin (mass per erythrocyte) 27 pg 25-34 Automated erythrocyte mean corpuscular h emoglobin concentration measurement (mass/volume) 33 g/dL 32-36 Automated erythrocyte distribution width ratio 16. 8 % 10.0- 14.5 Automated blood platelet count (count/volume) 418 10*3/uL 130-400 Automated blood platelet mean volume measurement 8.7 [foz_us] 7.4-10.4 Automated blood neutrophils/100 leukocytes 68 % 42-75 Automated blood lymphocytes/100 leukocytes 21 % 12-44 Blood monocytes/100 leukocytes 7 % 0-12 Automated blood eosinophils/100 leukocytes 4 % 0-10 Automated blood basophils/100 leukocytes 0 % 0-10 Blood neutrophils automated count (number/volume) 4.6 10*3 1.8-7.8 Blood lymphocytes automated count (number/volume) 1.4 10*3 1.0-4.0 Blood monocytes automated count (number/volume) 0. 5 10*3 0.0-1.0 Automated eosinophil count 0.3 10*3/uL 0 .0-0.3 Automated blood basophil count (count/volume) 0.0 10*3/uL 0.0-0.1 Urine beta human chorionic gonadotropin (hCG) measurement - 01/11/18 08:04 Urine beta human chorionic gonadotropin (hCG) measurem ent NEGATIVE NEGATIVE Capillary blood glucose measurement by g lucometer (mass/volume) - 01/11/18 08:06 Capillary blood glucose measurement by glucometer (mas s/volume) 104 mg/dL 70-110 Encounters ACCT No. Visit Date/Time Discharge Status Pt. Type Provider Facility Loc./Unit Complaint [id number] 08/18/2019 15:14:02 Document Registration [id number] 08/23/2019 09:54:00 020 23:59:59 CLS Outpatient ELISABETH LY APRN [facility] RAD SCREENING [id number] 04/04/2018 10:53:00 018 23:59:59 CLS Outpatient ELISABETH LY APRN [facility] RAD SCREENING [id number] 01/11/2018 07:54:00 018 12:30:00 DIS Outpatient KALIA COSTA DO [facility] PMM,CERVICAL STENOSIS [id number] 01/07/2018 12:04:00 018 15:00:00 DIS Outpatient COSTAJeremías HUTCHINSON KALIA C [facility] PREOP PMM,CERVICAL STENOSIS [id number] 12/30/2017 16:50:00 018 23:59:59 CLS Preadmit ELISABETH LY APRN [facility] RAD SCREENING [id number] 12/20/2017 12:11:00 018 23:59:59 CLS Outpatient KALIA COSTA DO [facility] RAD POSTMENOPAUSAL BLEEDING [id number] 09/29/2017 13:09:00 018 15:45:00 DIS Outpatient SHAILESH CANO MD [facility] IRON DEF ANEMIA [id number] 01/18/2017 11:05:00 017 23:59:59 CLS Outpatient ELISABETH LY APRN [facility] RAD SCREENING [id number] 11/05/2016 06:56:00 017 11:12:00 DIS Outpatient IZABELA BENSON MD [facility] UMBILICAL HERNIA [id number] 10/29/2016 14:54:00 017 15:40:00 DIS Outpatient IZABELA BENSON MD [facility] PREOP UMBILICAL HERNIA [id number] 07/22/2016 00:10:00 017 23:59:59 CLS Preadmit SHAILESH CANO MD [facility] IRON DEF ANEMIA [id number] 05/04/2016 15:40:00 017 00:01:00 DIS Outpatient SHAILESH CANO MD [facility] IRON DEF ANEMIA [id number] 01/14/2016 08:42:00 016 23:59:59 CLS Outpatient SHAILESH CANO MD [facility] RAD SCREENING [id number] 10/25/2014 08:47:00 015 23:59:59 CLS Outpatient PEDRO SIMPSON MD [facility] RAD SCREENING [id number] 01/09/2013 08:55:00 013 23:59:59 CLS Outpatient PEDRO SIMPSON MD [facility] RAD SCREENING
--- NOTE | 2020-01-06 15:04 | Diagnostic Imaging Report ---
EXAM: Knee, right, 3 views. INDICATION: Fall. Right leg pain and bruising. COMPARISON: None. FINDINGS: Comminuted horizontal fracture of the patella. Prepatellar soft tissue swelling. No other fracture. IMPRESSION: Horizontally oriented comminuted fracture of the right patella. Dictated by: Dictated on workstation # [id number]
[2020-01-06] MEDS ORDERED: HYDR-3870 PO (15:09)
--- NOTE | 2020-01-06 15:11 | Diagnostic Imaging Report ---
EXAM: Tibia/fibula, right, 2 views. INDICATION: Fall. Right leg pain and bruising. COMPARISON: Right knee radiographs also performed today. FINDINGS: Transverse comminuted fracture of the right patella. Plate and screw fixation of the distal right fibular metaphysis. Hardware components appear intact. Advanced degenerative changes in the right ankle are partially visualized. IMPRESSION: 1. Transverse comminuted fracture of the right patella. 2. No acute findings in the right tibia or fibula. Dictated by: Dictated on workstation # [id number]
[2020-01-06] MEDS ORDERED: HYDROcodone/APAP 5 MG/325 MG (LORTAB) TAB PO ONE (15:15)
[2020-01-06 16:10] VITALS: BP 138/82
--- NOTE | 2020-01-06 16:10 | NUR ---
PT DISCHARGED TO HOME W/ RX ET INSTR. PT TO WEAR KNEE IMMOBILIZER ET USE WALKER DIRECTED, TAKE MEDS DIRECTED ET F/U W/ DR PONCE. PARENT VOICED UNDERSTANDING. NO QUESTIONS OR CONCERNS VOICED.
== END 2020-01-06 16:10 | disposition home or self-care (01) ==
LOC: ER 14:29 → EDUNIT# 14:29 → ER 16:10
DX: S82.041A Displaced comminuted fracture of right patella, initial encounter for closed fracture (principal); N95.0 Postmenopausal bleeding; E78.00 Pure hypercholesterolemia, unspecified; E03.9 Hypothyroidism, unspecified; Z91.81 History of falling; Z79.84 Long term (current) use of oral hypoglycemic drugs; Z79.890 Hormone replacement therapy; W19.XXXA Unspecified fall, initial encounter
CPT/HCPCS: 73562; 73590; 99283; L1830

== ENCOUNTER → 2020-08-23 | Outpatient (CLI) | payer MEDICARE, MEDICAID ==
[~2020-08-23] MED LIST changes: +HYDR-3870 PO
--- NOTE | 2020-08-23 12:05 | Diagnostic Imaging Report ---
Indication: Routine screening. Comparison is made prior mammogram 08/23/2019 and 04/04/2018. 2-D and 3-D bilateral screening mammography was performed with CAD. Scattered fibroglandular densities are identified bilaterally. The parenchymal pattern is stable. No mass or malignant appearing microcalcifications are seen. Axillae are unremarkable. IMPRESSION: BI-RADS Category 1 No mammographic features suspicious for malignancy are identified. ACR BI-RADS Category 1: Negative. Result letter will be mailed to the patient. Note: At least 10% of breast cancer is not imaged by mammography. Dictated by: Dictated on workstation # [id number]
== END ==
LOC: RAD 09:30
PROVIDERS: ATTEND Family Medicine
DX: Z12.31 Encounter for screening mammogram for malignant neoplasm of breast (principal)
CPT/HCPCS: 77063; 77067

== ENCOUNTER → 2021-08-27 | Outpatient (CLI) | payer MEDICARE, MEDICAID ==
--- NOTE | 2021-08-27 12:38 | Diagnostic Imaging Report ---
INDICATION: Routine screening. COMPARISON: 08/23/2020 and 08/23/2019. TECHNIQUE: 2D and 3D bilateral screening mammography was performed with CAD. FINDINGS: Scattered fibroglandular densities are identified bilaterally. The parenchymal pattern is stable. No mass or malignant-appearing microcalcifications are seen. Axillae are unremarkable. IMPRESSION: No mammographic features suspicious for malignancy are identified. ACR BI-RADS Category 1: Negative. Result letter will be mailed to the patient. Note: At least 10% of breast cancer is not imaged by mammography. Dictated by: Dictated on workstation # [id number]
== END ==
LOC: RAD 10:15
PROVIDERS: ATTEND Nurse Practitioner Family
DX: Z12.31 Encounter for screening mammogram for malignant neoplasm of breast (principal)
CPT/HCPCS: 77063; 77067

== ENCOUNTER → 2022-09-03 | Outpatient (CLI) | payer MEDICARE, MEDICAID ==
--- NOTE | 2022-09-03 12:49 | Diagnostic Imaging Report ---
INDICATION: Routine screening. COMPARISON: 08/27/2021 and 08/23/2020. TECHNIQUE: 2D and 3D bilateral screening mammography was performed with CAD. FINDINGS: Scattered fibroglandular densities are identified bilaterally. No mass or malignant-appearing microcalcifications are seen. The axillae are unremarkable. IMPRESSION: No mammographic features suspicious for malignancy are identified. ACR BI-RADS Category 1: Negative. Result letter will be mailed to the patient. Note: At least 10% of breast cancer is not imaged by mammography. Dictated by: Dictated on workstation # [id number]
== END ==
LOC: RAD 11:30
PROVIDERS: ATTEND Family Medicine
DX: Z12.31 Encounter for screening mammogram for malignant neoplasm of breast (principal)
CPT/HCPCS: 77063; 77067